=== PATIENT | female | born 1990 | race Caucasian/White ===

== ENCOUNTER 2023-05-31 05:13 | Emergency (ER) | payer BC, OTHER ==
--- NOTE | 2023-05-31 05:50 | EDPHYS ---
Physician Documentation [facility] Name: Pamela Olguin Age: 32 yrs Sex: Female : 1990 Arrival Date: 05/31/2023 Time: 05:13 Bed 14 Private MD: ED Physician Nic Harris HPI: 05/31 05:44 This 32 yrs old Female presents to ER via Ambulatory with complaints of Ear mary Pain. 05:44 The patient presents with drainage, a foreign body sensation, hearing loss, pain, that mary is acute. The complaints affect the right ear and left ear. Onset: The symptoms/episode began/occurred 2 day(s) ago. Modifying factors: The symptoms are alleviated by nothing, the symptoms are aggravated by nothing. Associated signs and symptoms: The patient has no apparent associated signs or symptoms. Severity of symptoms: At their worst the symptoms were mild moderate in the emergency department the symptoms are unchanged. Unable to obtain HPI due to baseline dementia. The patient has experienced similar episodes in the past, a few times. 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 - Social history:: Smoking status: Patient denies any tobacco usage or history of. ROS: 05:45 Constitutional: Negative for fever, chills, and weight loss, Eyes: Negative for injury, mary pain, redness, and discharge, Neck: Negative for injury, pain, and swelling, Cardiovascular: Negative for chest pain, palpitations, and edema, Respiratory: Negative for shortness of breath, cough, wheezing, and pleuritic chest pain, Abdomen/GI: Negative for abdominal pain, nausea, vomiting, diarrhea, and constipation, Back: Negative for injury and pain, : Negative for injury, bleeding, discharge, and swelling, MS/Extremity: Negative for injury and deformity, Skin: Negative for injury, rash, and discoloration, Neuro: Negative for headache, weakness, numbness, tingling, and seizure. 05:45 ENT: Positive for drainage from ear(s), ear pain, foreign body sensation, hearing loss. Exam: 05:45 Constitutional: This is a well developed, well nourished patient who is awake, alert, mary and in no acute distress. Head/Face: Normocephalic, atraumatic. Eyes: Pupils equal round and reactive to light, extra-ocular motions intact. Lids and lashes normal. Conjunctiva and sclera are non-icteric and not injected. Cornea within normal limits. Periorbital areas with no swelling, redness, or edema. Neck: Trachea midline, no thyromegaly or masses palpated, and no cervical lymphadenopathy. Supple, full range of motion without nuchal rigidity, or vertebral point tenderness. No Meningismus. Chest/axilla: Normal chest wall appearance and motion. Nontender with no deformity. No lesions are appreciated. Cardiovascular: Regular rate and rhythm with a normal S1 and S2. No gallops, murmurs, or rubs. Normal PMI, no JVD. No pulse deficits. Respiratory: Lungs have equal breath sounds bilaterally, clear to auscultation and percussion. No rales, rhonchi or wheezes noted. No increased work of breathing, no retractions or nasal flaring. Abdomen/GI: Soft, non-tender, with normal bowel sounds. No distension or tympany. No guarding or rebound. No evidence of tenderness throughout. Back: No spinal tenderness. No costovertebral tenderness. Full range of motion. Skin: Warm, dry with normal turgor. Normal color with no rashes, no lesions, and no evidence of cellulitis. MS/ Extremity: Pulses equal, no cyanosis. Neurovascular intact. Full, normal range of motion. Neuro: Awake and alert, GCS 15, oriented to person, place, time, and situation. Cranial nerves II-XII grossly intact. Motor strength 5/5 in all extremities. Sensory grossly intact. Cerebellar exam normal. Normal gait. Psych: Awake, alert, with orientation to person, place and time. Behavior, mood, and affect are within normal limits. 05:45 ENT: External ear(s): cellulitis, erythema, that is minimal, of the left ear canal. Vital Signs: 05:30 BP 118 / 86; Pulse 79; Resp 16; Temp 99.1(O); Pulse Ox 98% on R/A; Weight 99.79 kg (R); ll3 Height 5 ft. 0 in. (R); Pain 8/10; 05:30 Body Mass Index 42.97 (99.79 kg, 152.4 cm) ll3 05:30 Pain Scale: Adult ll3 Basia Coma Score: 05:46 Eye Response: spontaneous(4). Motor Response: obeys commands(6). Verbal Response: mary oriented(5). Total: 15. MDM: 05:31 Patient medically screened. [facility] 05:46 Data reviewed: vital signs, nurses notes. Consideration of Admission/Observation mary Escalation of care including admission/observation considered. I considered the following discharge prescriptions or medication management in the emergency department Medications were administered in the Emergency Department. See MAR. Test considered but Not performed: Labs: no labs. Administered Medications: 06:28 Drug: Rocephin (cefTRIAXone) IM 1 grams Route: IM; Site: left gluteus; ll3 06:57 Follow up: Response: No adverse reaction ll3 06:28 Drug: LevOfloxacin PO 750 mg Route: PO; ll3 06:57 Follow up: Response: No adverse reaction ll3 06:28 Drug: Ibuprofen PO 800 mg Route: PO; ll3 06:56 Follow up: Response: No adverse reaction ll3 Disposition Summary: 05/31/23 05:49 Discharge Ordered Location: Home mary Problem: new mary Symptoms: have improved mary Condition: Stable mary Diagnosis - Acute serous otitis media, bilateral mary - Acute reactive otitis externa, left ear mary Followup: mary - With: Private Physician - When: 2 - 3 days - Reason: Recheck today's complaints, Continuance of care, Re-evaluation by your physician Followup: mary - With: Carmen Membreno MD - When: 2 - 3 days - Reason: Recheck today's complaints, Continuance of care, Re-evaluation by your physician Discharge Instructions: - Discharge Summary Sheet mary - Ear Drops, Adult mary - Otitis Media, Adult mary - Otitis Externa mary - Otitis Externa, [id number] mary - Otitis Media, Adult, [id number] mary - Ear Drops, Adult, [id number] mary - Otitis Media With Effusion, Adult mary Forms: - Medication Reconciliation Form mary - Thank You Letter mary - Antibiotic Education mary - Prescription Opioid Use mary - Patient Portal Instructions mary Prescriptions: - acetaminophen-codeine 300-30 mg Oral tablet - take 2 tablet by ORAL route every 6 hours; 20 tablet; Refills: 0, Product mary Selection Permitted - Sia-D 12 Hour 60-120 mg Oral Tablet Sustained Release 12 hr - take 1 tablet by ORAL route every 12 hours As needed; 30 tablet; Refills: 0, mary Product Selection Permitted - Medrol (Chiki) 4 mg Oral Tablets, Dose Pack - take 1 tablet by ORAL route as directed - follow package instructions; 1 mary packet; Refills: 0, Product Selection Permitted - Ciprodex 0.3-0.1 % Otic drops,suspension - instill 4 drops by OTIC route every 12 hours for 7 days , for ears ONLY; 10 mary milliliter; Refills: 0, Product Selection Permitted - levofloxacin 750 mg Oral Tablet - take 1 tablet by ORAL route once daily; 9 tablet; Refills: 0, Product Selection mary Permitted Signatures: Nic Harris MD MD cha Loubet, Lynsea, RN RN ll3
--- NOTE | 2023-05-31 05:50 | ER ---
Nurse's Notes [facility] Name: Pamela Olguin Age: 32 yrs Sex: Female : 1990 Arrival Date: 05/31/2023 Time: 05:13 Bed 14 Private MD: Diagnosis: Acute serous otitis media, bilateral;Acute reactive otitis externa, left ear Presentation: 05/31 05:30 Chief complaint: Patient states: c/o bilateral ear drainage X 2 days, c/o pain to left ll3 ear 05/31 "states I scratched it in the inside really hard", c/o decreased hearing to right ear. Coronavirus screen: Vaccine status: Patient reports receiving the 2nd dose of the covid vaccine. At this time, the client does not indicate any symptoms associated with coronavirus-19. Ebola Screen: No symptoms or risks identified at this time. Initial Sepsis Screen: Does the patient meet any 2 criteria? No. Patient's initial sepsis screen is negative. Does the patient have a suspected source of infection? No. Patient's initial sepsis screen is negative. Risk Assessment: Do you want to hurt yourself or someone else? Patient reports no desire to harm self or others. Onset of symptoms was May 29, 2023. 05:30 Method Of Arrival: Ambulatory ll3 05:30 Acuity: LAURIE 4 ll3 Triage Assessment: 05:33 General: Appears uncomfortable, Behavior is calm, cooperative. Pain: Complains of pain ll3 in left ear Pain does not radiate. Pain currently is 8 out of 10 on a pain scale. Pain began 1 day ago. Is continuous. EENT: Reports decreased hearing in right ear pain in left ear. Derm: Skin is pink, warm \\T\\ dry. 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 - Social history:: Smoking status: Patient denies any tobacco usage or history of. Screenin:29 [facility] ED Fall Risk Assessment (Adult) History of falling in the last 3 months, ll3 including since admission No falls in past 3 months (0 pts) Confusion or Disorientation No (0 pts) Intoxicated or Sedated No (0 pts) Impaired Gait No (0 pts) Mobility Assist Device Used No (0 pt) Altered Elimination No (0 pt) Score/Fall Risk Level 0 - 2 = Low Risk Oriented to surroundings, Maintained a safe environment, Educated pt \\T\\ family on fall prevention, incl call for assistance when getting out of bed. Abuse screen: Denies threats or abuse. Denies injuries from another. Nutritional screening: No deficits noted. Tuberculosis screening: No symptoms or risk factors identified. Assessment: 05:33 General: See triage assessment. ll3 Vital Signs: 05:30 BP 118 / 86; Pulse 79; Resp 16; Temp 99.1(O); Pulse Ox 98% on R/A; Weight 99.79 kg (R); ll3 Height 5 ft. 0 in. (R); Pain 8/10; 05:30 Body Mass Index 42.97 (99.79 kg, 152.4 cm) ll3 05:30 Pain Scale: Adult ll3 Basia Coma Score: 05:46 Eye Response: spontaneous(4). Motor Response: obeys commands(6). Verbal Response: mary oriented(5). Total: 15. ED Course: 05:16 Patient arrived in ED. ag3 05:31 Nic Harris MD is Attending Physician. mary 05:33 Triage completed. ll3 05:35 Arm band placed on Patient placed in an exam room, on a stretcher, on pulse oximetry. ll3 05:48 Carmen Membreno MD is Referral Physician. mary 06:29 Patient has correct armband on for positive identification. Bed in low position. Call ll3 light in reach. Side rails up X 1. 06:29 No provider procedures requiring assistance completed. Patient did not have IV access ll3 during this emergency room visit. Administered Medications: 06:28 Drug: Rocephin (cefTRIAXone) IM 1 grams Route: IM; Site: left gluteus; ll3 06:57 Follow up: Response: No adverse reaction ll3 06:28 Drug: LevOfloxacin PO 750 mg Route: PO; ll3 06:57 Follow up: Response: No adverse reaction ll3 06:28 Drug: Ibuprofen PO 800 mg Route: PO; ll3 06:56 Follow up: Response: No adverse reaction ll3 Medication: 06:29 VIS not applicable for this client. ll3 Outcome: 05:49 Discharge ordered by . mary 06:56 Discharged to home ambulatory. ll3 06:56 Discharge instructions given to patient, Instructed on discharge instructions, follow up and referral plans. medication usage, Demonstrated understanding of instructions, follow-up care, medications, Prescriptions given X 5 06:56 Condition: stable ll3 06:57 Patient left the ED. ll3 Signatures: Nic Harris MD MD cha Gomez, Alice ag3 Loubet, Lynsea, RN RN ll3
[2023-05-31] MEDS ORDERED: LIDOCAINE 1% MPF 2 ML AMPULE ONE (06:27)
[2023-05-31] MEDS ORDERED: levoFLOXacin 750 MG TAB ONE (06:27)
[2023-05-31] MEDS ORDERED: CEFTRIAXONE 1000 MG/VIAL ONE (06:27)
[2023-05-31] MEDS ORDERED: IBUPROFEN 400 MG TAB ONE (06:27)
--- OUTSIDE RECORDS SUMMARY | 2023-05-31 06:50 | XMS REPORT | Continuity of Care Document ---
:1990 Author Organization [facility] t Address [address] [place] [address] [place] [id number] Care Team Providers Name Role Phone Pcp, Patient Does Not Have A Primary Care Physician [id number] Abel Mcgovern Attending Clinician Unavailable Onur Cantu Attending Clinician Unavailable Mario Ferrer Attending Clinician Unavailable GROVER PRESTON Attending Clinician Unavailable Grover Preston DO Attending Clinician REKHA COSTA Attending Clinician Unavailable Rekha Costa DO Attending Clinician Doctor Unassigned, [place] Attending Clinician Unavailable TOBY OSORIO Attending Clinician Unavailable Troy SHERMAN, Miim Sparks Attending Clinician Unavailable Yoanna HOLLY, Moon Isbell Attending Clinician Eduard HOLLY, Liam S Attending Clinician LIAM CAHPA Attending Clinician Unavailable NILSON REED Attending Clinician Unavailable Reji SHERMAN, Archana Attending Clinician Unavailable P[facility], [facility] Attending Clinician Unavailable Maia Toledo Attending Clinician MAIA HAHN Attending Clinician Unavailable Abel Mcgovern Admitting Clinician Unavailable KNOW, DOES_NOT Admitting Clinician Unavailable RON HOGUE Admitting Clinician Unavailable Mario Ferrer Admitting Clinician Unavailable Payers Payer Name Policy Type Policy Number Effective Date Expiration Date Berkley lara [facility] [id number] 2020 MEDICAID 00:00[facility]00 [facility] [id number] 2023 00:00:00 BCBS [facility] [id number] 2021 OF [facility] 00:00:00 Problems Condition Condition Condition Status Onset Resolution Last Treating Co mments Source Name Details Category Date Date Treatment Clinician Date Obesity Obesity Disease Active Univers (BMI (BMI 9-26 ity of 30-39.9) 30-39.9) 00:00: [address] Ectopic Ectopic Disease Active Univers 9-25 ity of without without 00:00: [place] intrauteri intrauteri 00 Me dical ne ne Branch , , unspecifie unspecifie d location d location Inappropri Inappropri Disease Active U nivers ate change ate change 06-12 it y of in in 00:00: [place] quantitati quantitati 00 Me dical ve hCG in ve hCG in Bran ch early early Acanthosis Acanthosis Disease Active U nivers nigricans nigricans 8-08 ity of 00:00: [address] Personal Personal Disease Active Unive rs history of history of 8-08 it y of gastric gastric 00:00: [place] banding banding [address] [place] [address] BMI BMI Disease Active Univers 37.0-37.9, 37.0-37.9, 8-08 it y of adult adult 00:00: [address] Allergies, Adverse Reactions, Alerts Allergy Allergy Status Severity Reaction(s) Onset Inactive Treating Comm ents Source Name Type Date Date Clinician clavulan DA Active [place] RASH 2021-0 [facility] ic acid 6-24 [facility] [place] amoxicil DA Active MO RASH 2021-0 [facility] renea 6-24 [facility] 00:[facility]: [facility] [place] clavulan DA Active MO RASH 0 [facility] ic acid 5-12 [facility] 00:00: [facility] [place] amoxicil DA Active MO RASH 2021-0 [facility] renea 5-12 [facility] 00:00: [facility] [place] amoxicil DA Active MO RASH 2020-0 [facility] renea 6-11 Clear 00:00: Haley 00 [facility] clavulan DA Active MO 2020-0 [facility] ic acid 6-11 Clear 00:00: Haley 00 [facility] amoxicil DA Active MO 2020-0 [facility] renea 6-11 Clear 00:00: Haley 00 [facility] clavulan DA Active MO RASH 2020-0 [facility] ic acid 6-11 Clear 00:00: Haley 00 [facility] clavulan DA Active MO RASH 2020-1 [facility] ic acid 1-23 Woman[facility] 00:00: [facility] [place] amoxicil DA Active MO RASH 2020-1 [facility] renea 1-23 Woman[facility] 00:00: [facility] [place] clavulan DA Active MO 2020-1 [facility] ic acid 1-23 Woman[facility] 00:00: [facility] [place] amoxicil DA Active MO 2020-1 [facility] renea 1-23 [facility] 00:00: [facility] [place] clavulan DA Active MO 2019-1 [facility] ic acid 2-28 [place] 00:00: Orthope 00 dic Hospita l amoxicil DA Active MO 2019-1 [facility] renea 2-28 [place] 00:00: Orthope 00 dic Hospita l amoxicil DA Active MO RASH 2019-1 [facility] renea 2-28 [place] 00:00: Orthope 00 dic Hospita l clavulan DA Active MO RASH 2019-1 [facility] ic acid 2-28 [place] 00:00: Orthope 00 dic Hospita l Amoxicil Propensi Active Hives 2018-0 Univer s renea-Pot ty to 808 ity of Clavulan adverse 00:00: [place] ate reaction 00 Medical s Branch AMOXICIL DRUG Active Hives 2017- Univers RENEA-POT 8-08 ity of CLAVULAN 00:00: [place] ATE 00 Medical Branch NO KNOWN Drug Active Univers ALLERGIE Class ity of S [facility] Social History Social Habit Start Date Stop Date Quantity Comments Source History SDOH University o f Alcohol Frequency [place] [facility] History SDOH University o f Alcohol Std Drinks [place] [facility] [place] History SDCO University o f Alcohol Binge [place] [facility] Gender identity Universit y of [facility] Sexual orientation Univer sity of [facility] Exposure to 2023-03-09 2023-03-19 Not sure [facility] SARS-CoV-2 (event) 00:00:00 07:24:00 [facility] Alcohol intake 2023-03-19 2023-03-19 Current drinker Unive rsity of 00:00:00 00:00:00 of alcohol [place] Medical (finding) Branch History of Social 2019-05-01 2019-05-01 Univers ity of function 00:00:00 00:00:00 [facility] Tobacco use and 2018-05-29 2018-05-29 Smokeless Universit y of exposure 00:00:00 00:00:00 tobacco non-user [facility] [place] [facility] dical [place] Alcohol Comment 2018-05-29 2018-05-29 weekends / Universit y of 00:00:00 00:00:00 [facility] Sex Assigned At [birth year] Universit y of 00:00:00 00:00:00 [facility] Smoking Status Start Date Stop Date Source Never smoked tobacco [facility] Medications Ordered Filled Start Stop Current Ordering Indication Dosage Frequency Signature Comments Components Source Medication Medication Date Date Medication? Clinician (SIG) Name Name polymyxin B Yes [id number] 1[drp] Place 1 Univers sulf-trimet 7-20 Drop in ity o f hoprim 00:00: left eye [place] 10,000 00 every 4 Medical unit- 1 (four) Branch mg/mL hours. ophthalmic drops ketorolac 2022- No 30mg 30 mg, Unive rs (TORADOL) 03-19 Slow IV ity of injection 13:30: 12:55 Push, [place] 30 mg 00 :00 ONCE, 1 Medical dose, On Branch 03/19/23 at 0830, Routine NaCl 0.9% 2022- No 1000mL at 999 Uni vers (NS) bolus 03-19 mL/hr, ity of infusion 13:30: 13:52 1,000 mL, Jack as 1,000 mL 00 :00 IV Medical Infusion, Branch ONCE, 1 dose, On [facility] 03/19/23 at 0830, TANNER diphenhydrA 2022- No 25mg 25 mg, Uni vers MINE 03-19 Slow IV ity of (BENADRYL) 12:45: 12:55 Push, [place] injection 00 :00 ONCE, 1 Medical 25 mg dose, On Branch [facility] 03/19/23 at 0745, STAT metoclopram No 10mg 10 mg, Uni vers faheem HCl 03-19 Slow IV ity of (REGLAN) 12:45: 12:55 Push, [place] injection 00 :00 ONCE, 1 Medical 10 mg dose, On Branch [facility] 03/19/23 at 0745, TANNER famotidine 2021- No 20mg 20 mg, Univ ers (PEPCID 06-18 Slow IV ity of (PF)) 20:30: 19:33 Push, [place] injection 00 :00 ONCE, 1 Medical 20 mg dose, On Branch [place] 06/18/22 at 1530, Routine NaCl 0.9% 2021- No 1000mL at 999 Uni vers (NS) bolus 06-18 mL/hr, ity of infusion 20:15: 20:13 1,000 mL, Jack as 1,000 mL 00 :00 IV Medical Infusion, Branch ONCE, 1 dose, On [place] 06/18/22 at 1515, TANNER maalox:diph 2021- No 15mL 15 mL, Uni vers enhydrAMINE 06-18 Oral, ity of :lidocaine 20:00: 20:08 ONCE, 1 Jack as 2 % viscous 00 :00 dose, On Medi ayana 1:1:1 [place] ([facility] 06/18/22 at [facility]) 1500, oral Routine suspension 15 mL ketorolac 2021- No 30mg 30 mg, Unive rs (TORADOL) 06-18 Slow IV ity of injection 19:30: 19:32 Push, [place] 30 mg 00 :00 ONCE, 1 Medical dose, On Branch 06/18/22 at 1430, TANNER ondansetron 2021- No 4mg 4 mg, Slow Univers (ZOFRAN 06-18 IV Push, ity of (PF)) 19:30: 19:33 ONCE, 1 [place] injection 4 00 :00 dose, On Medi ayana mg [facility] 06/18/22 at 1430, TANNER ondansetron Yes [id number] 4mg Take 1 Univers 4 mg - tablet by ity of disintegrat 00:00: mouth [place] ing tablet 00 every 8 Medica l (eight) Branch hours as needed for Nausea and Vomiting (N/V). ondansetron Yes [id number] 4mg Take 1 Univers 4 mg - tablet by ity of disintegrat 00:00: mouth [place] ing tablet 00 every 8 Medica l (eight) Branch hours as needed for Nausea and Vomiting (N/V). ondansetron Yes [id number] 4mg Take 1 Univers 4 mg 8-28 tablet by ity of disintegrat 00:00: mouth [place] ing tablet 00 every 8 Medica l (eight) Branch hours as needed for Nausea and Vomiting (N/V). meloxicam 2019-10 Yes [id number] 7.5mg Take 1 Univers 7.5 mg 1-17 [id number] tablet by ity of tablet 00:00: mouth [place] 00 daily. [facility] meloxicam 2019-10 Yes [id number] 7.5mg Take 1 Univers 7.5 mg 1-17 [id number] tablet by ity of tablet 00:00: mouth [place] 00 daily. [facility] meloxicam 2019-10 Yes [id number] 7.5mg Take 1 Univers 7.5 mg 1-17 [id number] tablet by ity of tablet 00:00: mouth [place] 00 daily. [facility] meloxicam 2019-10 Yes [id number] 7.5mg Take 1 Univers 7.5 mg 1-17 [id number] tablet by ity of tablet 00:00: mouth [place] 00 daily. [facility] meloxicam 2019-10 Yes [id number] 7.5mg Take 1 Univers 7.5 mg 1-17 [id number] tablet by ity of tablet 00:00: mouth [place] 00 daily. [facility] meloxicam 2019- Yes [id number] 7.5mg Take 1 Univers 7.5 mg 1-17 [id number] tablet by ity of tablet 00:00: mouth [place] 00 daily. [facility] meloxicam 2019-10 Yes [id number] 7.5mg Take 1 Univers 7.5 mg 1-17 [id number] tablet by ity of tablet 00:00: mouth [place] 00 daily. [facility] meloxicam 2019-10 Yes [id number] 7.5mg Take 1 Univers 7.5 mg 1-17 [id number] tablet by ity of tablet 00:00: mouth [place] 00 daily. [facility] meloxicam 2019-10 Yes [id number] 7.5mg Take 1 Univers 7.5 mg 1-17 [id number] tablet by ity of tablet 00:00: mouth [place] 00 daily. [facility] ondansetron 2020- No [id number] 4mg Take 1 Univers (ZOFRAN 8-03 08-09 tablet by ity of ODT) 4 mg 00:00: 04:59 mouth [place] disintegrat 00 :00 every 8 Medic al ing tablet (eight) Branch hours as needed for Nausea and Vomiting (N/V) for up to 5 days. ondansetron 2020- No [id number] 4mg Take 1 Univers (ZOFRAN 8-03 08-09 tablet by ity of ODT) 4 mg 00:00: 04:59 mouth [place] disintegrat 00 :00 every 8 Medic al ing tablet (eight) Branch hours as needed for Nausea and Vomiting (N/V) for up to 5 days. HYDROcodone Yes 1{tbl} Take 1 Un orquidea -acetaminop 9-26 tablet by ity of hen 5-325 00:00: mouth [place] mg tablet 00 every 6 Medical (six) Branch hours as needed for Pain (scale 4-6) or Pain (scale 7-10). HYDROcodone Yes 1{tbl} Take 1 Un orquidea -acetaminop 9-26 tablet by ity of hen 5-325 00:00: mouth [place] mg tablet 00 every 6 Medical (six) Branch hours as needed for Pain (scale 4-6) or Pain (scale 7-10). HYDROcodone 2018-0 Yes 1{tbl} Take 1 Un orquidea -acetaminop 9-26 tablet by ity of hen 5-325 00:00: mouth [place] mg tablet 00 every 6 Medical (six) Branch hours as needed for Pain (scale 4-6) or Pain (scale 7-10). HYDROcodone 2018-0 Yes 1{tbl} Take 1 Un orquidea -acetaminop 9-26 tablet by ity of hen 5-325 00:00: mouth [place] mg tablet 00 every 6 Medical (six) Branch hours as needed for Pain (scale 4-6) or Pain (scale 7-10). HYDROcodone 2018-0 Yes 1{tbl} Take 1 Un orquidea -acetaminop 9-26 tablet by ity of hen 5-325 00:00: mouth [place] mg tablet 00 every 6 Medical (six) Branch hours as needed for Pain (scale 4-6) or Pain (scale 7-10). HYDROcodone 2018-0 Yes 1{tbl} Take 1 Un orquidea -acetaminop 9-26 tablet by ity of hen 5-325 00:00: mouth [place] mg tablet 00 every 6 Medical (six) Branch hours as needed for Pain (scale 4-6) or Pain (scale 7-10). HYDROcodone 2018-0 Yes 1{tbl} Take 1 Un orquidea -acetaminop 9-26 tablet by ity of hen 5-325 00:00: mouth [place] mg tablet 00 every 6 Medical (six) Branch hours as needed for Pain (scale 4-6) or Pain (scale 7-10). HYDROcodone 2018-0 Yes 1{tbl} Take 1 Un orquidea -acetaminop 9-26 tablet by ity of hen 5-325 00:00: mouth [place] mg tablet 00 every 6 Medical (six) Branch hours as needed for Pain (scale 4-6) or Pain (scale 7-10). HYDROcodone 2018-0 Yes 1{tbl} Take 1 Un orquidea -acetaminop 9-26 tablet by ity of hen 5-325 00:00: mouth [place] mg tablet 00 every 6 Medical (six) Branch hours as needed for Pain (scale 4-6) or Pain (scale 7-10). HYDROcodone 2018-0 Yes 1{tbl} Take 1 Un orquidea -acetaminop 9-26 tablet by ity of hen 5-325 00:00: mouth [place] mg tablet 00 every 6 Medical (six) Branch hours as needed for Pain (scale 4-6) or Pain (scale 7-10). HYDROcodone 2018-0 Yes 1{tbl} Take 1 Un orquidea -acetaminop 9-26 tablet by ity of hen 5-325 00:00: mouth [place] mg tablet 00 every 6 Medical (six) Branch hours as needed for Pain (scale 4-6) or Pain (scale 7-10). HYDROcodone 2018-0 Yes 1{tbl} Take 1 Un orquidea -acetaminop 9-26 tablet by ity of hen 5-325 00:00: mouth [place] mg tablet 00 every 6 Medical (six) Branch hours as needed for Pain (scale 4-6) or Pain (scale 7-10). Immunizations Ordered Filled Immunization Date Status Comments [facility] Immunization Name Name SARS-COV-2 COVID-19 2021-01-24 Completed Unive rsity of MODERNA VACCINE 00:00:00 [place] Med ical Branch SARS-COV-2 COVID-19 2021-01-24 Completed Unive rsity of MODERNA VACCINE 00:00:00 [place] Med ical Branch SARS-COV-2 COVID-19 2021-01-24 Completed Unive rsity of MODERNA 12+ YRS 00:00:00 [facility] ical VACCINE Branch SARS-COV-2 COVID-19 2021-01-24 Completed Unive rsity of MODERNA 12+ YRS 00:00:00 [place] Med ical VACCINE Branch SARS-COV-2 COVID-19 2020-12-27 Completed Unive rsity of MODERNA VACCINE 00:00:00 [facility] ical Branch SARS-COV-2 COVID-19 2020-12-27 Completed Unive rsity of MODERNA VACCINE 00:00:00 [place] Med ical Branch SARS-COV-2 COVID-19 2020-12-27 Completed Unive rsity of MODERNA 12+ YRS 00:00:00 [facility] ical VACCINE Branch SARS-COV-2 COVID-19 2020-12-27 Completed Unive rsity of MODERNA 12+ YRS 00:00:00 [facility] ical VACCINE Branch Vital Signs Vital Name Observation Time Observation Value Comments Source Systolic blood 2023-05-10 20:17:17 132 mm[Hg] Univer sity of pressure [place] [facility] Diastolic blood 2023-05-10 20:17:17 81 mm[Hg] Unive rsity of pressure [place] [facility] Heart rate 2023-05-10 20:17:17 90 /min Universi ty of [place] [facility] Respiratory rate 2023-05-10 20:17:17 16 /min Univ ersity of [place] [facility] Oxygen saturation in 2023-05-10 20:17:17 100 /min University of Arterial blood by [facility] Pulse oximetry Branch Body temperature 2023-05-10 19:34:05 36.89 Rosa M Univ ersity of [place] [facility] Body height 2023-05-10 19:20:00 152.4 cm Universi ty of [place] [facility] Body weight 2023-05-10 19:20:00 102.059 kg Universi ty of [place] [facility] BMI 2023-05-10 19:20:00 43.94 kg/m2 Universi ty of [place] [facility] Systolic blood 2023-03-19 13:53:00 125 mm[Hg] Univer sity of pressure [place] [facility] Diastolic blood 2023-03-19 13:53:00 83 mm[Hg] Unive rsity of pressure [place] [facility] Heart rate 2023-03-19 13:53:00 55 /min Universi ty of [place] [facility] Respiratory rate 2023-03-19 13:53:00 14 /min Univ ersity of [place] [facility] Oxygen saturation in 2023-03-19 13:53:00 98 /min University of Arterial blood by [facility] Pulse oximetry Branch Body temperature 2023-03-19 12:26:00 37.22 Rosa M Univ ersity of [place] [facility] Body height 2023-03-19 12:26:00 152.4 cm Universi ty of [place] [facility] Body weight 2023-03-19 12:26:00 102.059 kg Universi ty of [place] [facility] BMI 2023-03-19 12:26:00 43.94 kg/m2 Universi ty of [place] [facility] Systolic blood 2022-06-18 20:00:00 113 mm[Hg] Univer sity of pressure [place] [facility] Diastolic blood 2022-06-18 20:00:00 76 mm[Hg] Unive rsity of pressure [place] [facility] Heart rate 2022-06-18 20:00:00 64 /min Universi ty of [place] [facility] Respiratory rate 2022-06-18 20:00:00 15 /min Univ ersity of [place] [facility] Oxygen saturation in 2022-06-18 20:00:00 99 /min University of Arterial blood by [place] [facility] Pulse oximetry Branch Body temperature 2022-06-18 19:13:00 36.89 Rosa M Univ ersity of [place] [facility] Body height 2022-06-18 19:13:00 152.4 cm Universi ty of [place] [facility] Body weight 2022-06-18 19:13:00 95.709 kg Universi ty of [place] [facility] BMI 2022-06-18 19:13:00 41.21 kg/m2 Universi ty of [place] [facility] Systolic blood 2020-11-23 04:00:00 125 mm[Hg] Univer sity of pressure [place] [facility] Diastolic blood 2020-11-23 04:00:00 75 mm[Hg] Unive rsity of pressure [place] [facility] Heart rate 2020-11-23 04:00:00 79 /min Universi ty of [place] [facility] Body temperature 2020-11-23 04:00:00 37 Rosa M Univ ersity of [place] [facility] Respiratory rate 2020-11-23 04:00:00 16 /min Univ ersity of [place] [facility] Oxygen saturation in 2020-11-23 04:00:00 98 /min University of Arterial blood by [place] [facility] Pulse oximetry Branch Body weight 2020-11-23 02:18:00 87.091 kg Universi ty of [place] [facility] BMI 2020-11-23 02:18:00 37.50 kg/m2 Universi ty of [place] [facility] Systolic blood 2020-11-23 04:00:00 125 mm[Hg] Univer sity of pressure [place] [facility] Diastolic blood 2020-11-23 04:00:00 75 mm[Hg] Unive rsity of pressure [place] [facility] Heart rate 2020-11-23 04:00:00 79 /min Universi ty of [place] [facility] Body temperature 2020-11-23 04:00:00 37 Rosa M Univ ersity of [place] [facility] Respiratory rate 2020-11-23 04:00:00 16 /min Univ ersity of [place] [facility] Oxygen saturation in 2020-11-23 04:00:00 98 /min University of Arterial blood by [facility] Pulse oximetry Branch Body weight 2020-11-23 02:18:00 87.091 kg Universi ty of [facility] BMI 2020-11-23 02:18:00 37.50 kg/m2 Universi ty of [facility] Systolic blood 2020-09-07 21:14:00 124 mm[Hg] Univer sity of pressure [facility] Diastolic blood 2020-09-07 21:14:00 84 mm[Hg] Unive rsity of pressure [facility] Heart rate 2020-09-07 21:14:00 77 /min Universi ty of [facility] Body height 2020-09-07 21:14:00 152.4 cm Universi ty of [facility] Body weight 2020-09-07 21:14:00 84.369 kg Universi ty of [facility] BMI 2020-09-07 21:14:00 36.33 kg/m2 Universi ty of [facility] Systolic blood 2020-09-07 21:14:00 124 mm[Hg] Univer sity of pressure [facility] Branch Diastolic blood 2020-09-07 21:14:00 84 mm[Hg] Unive rsity of pressure [facility] Heart rate 2020-09-07 21:14:00 77 /min Universi ty of [facility] Body height 2020-09-07 21:14:00 152.4 cm Universi ty of [facility] Body weight 2020-09-07 21:14:00 84.369 kg Universi ty of [facility] BMI 2020-09-07 21:14:00 36.33 kg/m2 Universi ty of [facility] Systolic blood 2020-05-24 20:55:00 133 mm[Hg] Univer sity of pressure [facility] Diastolic blood 2020-05-24 20:55:00 86 mm[Hg] Unive rsity of pressure [facility] Heart rate 2020-05-24 20:53:00 63 /min Universi ty of [facility] Body temperature 2020-05-24 20:53:00 37 Rosa M Univ ersity of [facility] Respiratory rate 2020-05-24 20:53:00 18 /min Univ ersity of [facility] Body height 2020-05-24 20:53:00 152.4 cm [facility] Body weight 2020-05-24 20:53:00 83.008 kg [facility] BMI 2020-05-24 20:53:00 35.74 kg/m2 [facility] Oxygen saturation in 2020-05-24 20:53:00 98 /min [facility] blood by [facility] Pulse oximetry Branch Procedures Procedure Date / Time Performing Clinician Source Performed CONSENT/REFUSAL FOR 2023-05-10 19:15:29 [facility] DIAGNOSIS AND TREATMENT Archer [facility] CONSENT/REFUSAL FOR 2023-03-19 12:24:31 [facility] DIAGNOSIS AND TREATMENT Archer [facility] POCT TEST 2022-06-18 19:35:00 Rekha Costa [facility] LIPASE 2022-06-18 19:25:00 Rekha Costa [facility] COMP. METABOLIC PANEL 2022-06-18 19:25:00 Rekha Costa [facility] ([id number] CBC WITH DIFF 2022-06-18 19:25:00 Rekha Costa [facility] URINALYSIS 2022-06-18 19:25:00 Rekha Costa [facility] CONSENT/REFUSAL FOR 2022-06-18 19:06:07 Doctor [facility] DIAGNOSIS AND TREATMENT Archer [facility] [id number] 2022-05-14 00:00:00 [facility] [id number] 2021-05-06 00:00:00 [facility] [id number] 2021-05-06 00:00:00 [facility] URINALYSIS 2020-11-23 03:41:00 Moon Lenz [place] o f [facility] RAPID STREP SCREEN FOR 2020-11-23 02:44:00 Moon [facility] A [facility] ADC,CLC OR LCC ONLY - 2020-11-23 02:44:00 Moon Lenz [facility] INFLUENZA A & B DIRECT Medical B ranch ANTIGEN NOTICE OF PRIVACY 2020-11-23 02:15:37 Doctor Unassigned, [facility] PRACTICES [facility] CONSENT/REFUSAL FOR 2020-11-23 02:15:15 Doctor Unassigned, [facility] DIAGNOSIS AND TREATMENT [facility] NO SHOW OR MISSED 2020-09-07 20:57:09 Doctor Unassigned, [facility] APPOINTMENT POLICY [facility] h ACKNOWLEDGEMENT [id number] 2019-11-06 00:00:00 JOSE R [facility] Encounters Start End Encounter Admission Attending Care Care Encounter Source Date/Time Date/Time Type Type Clinicians Facility Department ID 2022-06-23 Inpatient EL Chris, [facility] [id number] [facility] 12:30:00 Chundar [id number] [facility] [place] 2022-06-21 Inpatient EL Chris, [facility] [id number] [facility] 10:00:00 Chundar [id number] [facility] [place] 2022-05-12 Inpatient EM Chris, [facility] OBPP [id number] [facility] 09:58:00 Chundar [id number] [facility] [place] 2021-08-20 Emergency [facility] [id number] Univers 21:07:55 ity [facility] 2021-05-18 [facility] [id number] [facility] 10:30:00 Chundar [id number] [facility] [place] 2021-01-04 Inpatient Chris, [facility] [id number] [facility] 10:00:00 Chundar [id number] [facility] [place] 2020-09-28 Inpatient BERTA Cantu, [facility] [id number] [facility] 10:37:00 Onur [facility] [place] [facility] 2020-09-13 Inpatient BERTA Cantu [facility] [id number] [facility] 07:45:00 Onur 06 [place] [facility] 2019-11-05 Inpatient Mario Chappell [facility] LD [id number] [facility] 18:18:00 [id number] [facility] [place] 2019-10-31 Inpatient Mario Ferrer [facility] ZENAIDA [id number] [facility] 19:15:00 [facility] [place] 2023-05-10 2023-05-10 [facility] [id number] Univers 14:22:00 15:28:00 GROVER davis [facility] 2023-05-10 2023-05-10 [facility] [id number] Univers 14:22:00 15:28:00 Grover AMNZO [id number] i ty of [place] [id number] [facility] [id number] [address] 2023-03-19 2023-03-19 [facility] [id number] Univers 07:27:00 08:55:00 REKHA evetteana [facility] 2023-03-19 2023-03-19 [facility] [id number] Univers 07:27:00 08:55:00 Rekha MANZO 350.1.13.10 ity [facility] 4.2.7.2.686 [facility] [phone] [address] 2022-06-18 2022-06-18 Emergency [facility] [id number] Univers 14:16:00 15:19:00 REKHA evetteana [facility] 2022-06-18 2022-06-18 [facility] 1.2.840.114 [id number] Univers 14:16:00 15:19:00 Rekha MANZO 350.1.13.10 ity [facility] 4.2.7.2.686 [facility] [phone] [address] 2022-06-18 2022-06-18 Orders Doctor MARTIN 1.2.840.114 [id number] Univers 00:00:00 00:00:00 Only Unassigned, CHRIS 350.1.13.10 ity of [facility] 4.2.7.2.686 [facility] [phone] [place] [address] [address] 2022-05-12 2022-05-18 Inpatient EM Chris, [facility] OB [id number] [facility] 09:58:00 19:37:00 Chundar 73 [facility] 2022-04-14 2022-04-14 Emergency EM Chris, [facility] ZENAIDA [id number] [facility] 14:48:00 18:15:00 Chundar 25 [facility] 2022-04-14 2022-04-14 Emergency EM Chris, [facility] [id number] [facility] 14:48:00 18:15:00 Chundar [id number] [facility] 2022-04-05 2022-04-06 Emergency EL Chris, [facility] ZENAIDA [id number] [facility] 21:56:00 01:00:00 Chundar 53 [facility] 2022-04-05 2022-04-06 Emergency EL Chris, [facility] [id number] [facility] 21:56:00 01:00:00 Chundar [id number] [facility] 2022-03-02 2022-03-02 Emergency EM Chris, [facility] ZENAIDA [id number] [facility] 14:10:00 16:25:00 Chundar 63 [facility] 2022-03-02 2022-03-02 Emergency EM Chris, [facility] [id number] [facility] 14:10:00 16:25:00 Chundar [id number] [facility] 2021-05-06 2021-05-08 Inpatient EM Chris, [facility] OBPP [id number] [facility] 13:00:00 13:22:00 Chundar [id number] [facility] 2021-05-06 2021-05-06 Outpatient Chris, HCACL LABO [id number] [facility] 14:52:00 14:52:00 Chundar 71 [facility] 2021-04-20 2021-04-20 Emergency EM Chris, [facility] ZENAIDA [id number] [facility] 16:09:00 19:42:00 Chundar [id number] [facility] 2021-04-01 2021-04-01 Emergency EM Chris, [facility] ZENAIDA [id number] [facility] 13:02:00 13:39:00 Chundar [id number] [facility] 2021-01-24 2021-01-24 Outpatient [facility] [id number] Univers 09:30:00 09:30:00 ity [facility] 2020-12-27 2020-12-27 Outpatient R JO, [facility] [id number] Univers 09:40:00 09:40:00 TOBY ity [facility] 2020-11-23 2020-11-23 Letter MARIO Simmons 1.2.840.114 [id number] 00:00:00 00:00:00 (Out) Mimi PEREZ 350.1.13.10 [facility] 4.2.7.2.686 [id number] 019 2020-11-23 2020-11-23 MARIO Perez 1.2.840.114 [id number] Univers 00:00:00 00:00:00 (Out) Mimi PEREZ 350.1.13.10 it [facility] 4.2.7.2.686 Jack as [phone] [facility] [address] 2020-11-22 2020-11-22 Emergency Moon Lenz [facility] 1.2.840.114 [id number] 20:20:00 22:26:00 Akilah Manzo 350.1.13.10 [place] 4.2.7.2.686 [place] [id number] [facility] 2020-11-22 2020-11-22 Emergency Moon Lenz [facility] 1.2.840.114 [id number] Univers 20:20:00 22:26:00 Akilah Manzo 350.1.13.10 i ty [facility] 4.2.7.2.[place] [phone] [place] [address]64 [place] 2020-09-07 2020-09-07 [facility] 1.2.840.114 [id number] 15:52:38 23:59:00 Encounter [facility] 350.1.13.10 Surgical 4.2.7.2.686 Specialti [phone] [address] [place] 2020-09-07 2020-09-07 [facility] 1.2.840.114 [id number] Univers 15:52:38 23:59:00 Encounter [facility] 350.1.13.10 ity of Surgical 4.2.7.2.686 Jack as Specialti [id number] Md dical es 809 [facility] 2020-09-07 2020-09-07 [facility] [id number] Univers 15:15:00 15:15:00 LIAM ity [facility] 2020-09-07 2020-09-07 [facility] 1.2.840.114 [id number] Univers 14:57:36 15:12:36 Visit [facility] 350.1.13.10 it y of Surgical 4.2.7.2.686 Jack as Specialti [phone] Md dical es 198 [facility] 2020-09-07 2020-09-07 Office [facility] 1.2.840.114 [id number] 14:57:36 15:12:36 Visit [facility] 350.1.13.10 Surgical 4.2.7.2.686 Specialti [id number] es [address] [place] [address] 2020-09-07 2020-09-07 Orders Doctor MARIO 1.2.840.114 [id number] Univers 00:00:00 00:00:00 Only Unassigned, CHRIS 350.1.13.10 ity of [facility] 4.2.7.2.686 Jack as [id number] [facility] [address] [place] 2020-09-06 2020-09-06 Outpatient R BRIANNA [facility] [id number] Univers 14:30:00 14:30:00 NILSON ity [facility] 2020-05-25 2020-05-25 Telephone Archana Mendoza 1.2.840.114 [id number] Univers 00:00:00 00:00:00 CHRIS 350.1.13.10 it y of HOSPITAL 4.2.7.2.686 Jack as [phone] [facility] [address] [place] 2020-05-24 2020-05-24 Urgent Pob1, Acute Care Clinic [facility] 1. 2.840.114 [id number] Univers 15:45:59 16:12:06 Care [facility] 350.1.13.10 ity of [place] 4.2.7.2.686 Jack as [place] [phone] Md dical [place] [address] [address] 2020-05-24 2020-05-24 Outpatient Dulce HAHN [facility] [id number] Univers 15:40:00 16:12:06 MAIA davis [facility] 2019-11-06 2019-11-06 Outpatient Mario Ferrer [facility] [id number] [facility] 11:17:00 11:17:00 59 [facility] 2019-10-29 2019-10-29 Outpatient Mario Ferrer [facility] [id number] [facility] 08:30:00 08:30:00 [facility] 2019-10-20 2019-10-21 Emergency EM Mario Ferrer [facility] ZENAIDA [id number] [id number] [facility] 22:55:00 01:55:00 [id number] Woman s [facility] Results Test Description Test Time Test Comments Results Result Comments Source COMP. METABOLIC PANEL (53797) 2022-06-18 19:48:09 Test Item Value Reference Range Interpretation Comme nts NA (test code = 1978747902) 142 mmol/L 135-145 K (test code = 7457220329) 4.0 mmol/L 3.5-5 CL (test code = 4858056345) 110 mmol/L 98-108 H CO2 TOTAL (test code = 5984010487) 26 mmol/L 23-31 AGAP (test code = 6534805058) 2-16 BUN (test code = 3158139676) 10 mg/dL 7-23 GLUCOSE (test code = 8971676261) 85 mg/dL 70-110 CREATININE (test code = 0.61 mg/dL 0.5-1.04 3774369898) TOTAL BILI (test code = 0.2 mg/dL 0.1-1.1 0412077364) CALCIUM (test code = 5207973821) 8.9 mg/dL 8.6-10.6 T PROTEIN (test code = 4348105187) 6.5 g/dL 6.3-8.2 ALBUMIN (test code = 7790481615) 4.0 g/dL 3.5-5 ALK PHOS (test code = 5967468670) 88 U/L 34-122 ALTv (test code = 1742-6) 31 U/L 5-35 AST(SGOT) (test code = 1532679663) 34 U/L 13-40 eGFR (test code = 0507269598) mL/min/1.73m2 MICHAEL (test code = MICHAEL) Association of Glomerular Filtration Rate (GFR) and Staging of Kidney Disease* + +-------- + ------+| GFR (mL/min/1.73 m2) ?| With Kidney Damage ?| ?Without Kidney Damage+ +-- + +| ?>90 ?| ?Stage one ?| ? Normal ?+ +------- + -------+| ?60-89 ?| ?Stage two ?| ? Decreased GFR ? + +-------- + ------+| ?30-59 ?| ?Stage three ?| ? Stage three ? + +-------- + ------+| ?15-29 ?| ?Stage four ? | ? Stage four ?+ +------- + -------+| ?<15 (or dialysis) ? ?| ?Stage five ? | ? Stage five ?+ +------- + -------+ *Each stage assumes the associated GFR level has been in effect for at least three months. ?Stages 1 to 5, with or without kidney disease, indicate chronic kidney disease. Notes: Determination of stages one and two (with eGFR >59mL/min/1.73 m2) requires estimation of kidney damage for at least three months as defined by structural or functional abnormalities of the kidney, manifested by either:Pathological abnormalities or Markers of kidney damage (including abnormalities in the composition of the blood or urine or abnormalities in imaging tests). Lab Interpretation (test code = Abnormal 42354-3) [facility] 19:48:09 Test Item Value Reference Range Interpretation Comments LIPASE (test code = 1934419520) 138 U/L 0-220 Lab Interpretation (test code = Normal 38738-2) [facility] WITH [id number] 19:40:05 Test Item Value Reference Range Interpretation Comments WBC (test code = See_Comment [Automated 1690-2) message] The sy stem which generated this result transmitted reference range : 4.30 - 11.10 10*3/?L. The reference range was not used to interpret this result as normal/abnormal . RBC (test code = See_Comment [Automated 789-8) message] The sy stem which generated this result transmitted reference range : 3.93 - 5.25 10*6/?L. The reference range was not used to interpret this result as normal/abnormal . HGB (test code = 11.6 g/dL 11.6-15 718-7) HCT (test code = 37.2 % 35.7-45.2 4544-3) MCV (test code = 88.6 fL 80.6-95.5 787-2) MCH (test code = 27.6 pg 25.9-32.8 785-6) MCHC (test code = 31.2 g/dL 31.6-35.1 L 786-4) RDW-SD (test code = 45.1 fL 39-49.9 50000-6) RDW-CV (test code = 14.1 % 12-15.5 788-0) PLT (test code = See_Comment [Automated 777-3) message] The sy stem which generated this result transmitted reference range : 166 - 358 10*3/ ?L. The reference r alejandro was not used to interpret this result as normal/abnormal . MPV (test code = 10.2 fL 9.5-12.9 83592-3) NRBC/100 WBC (test See_Comment [Automat ed code = 7006954611) message] The system which generated this result transmitted reference range : 0.0 - 10.0 /100 WBCs. The refer ence range was not u sed to interpret th is result as normal/abnormal . NRBC x10^3 (test code See_Comment [Auto mated = 2668726512) message] The s ystem which generated this result transmitted reference range : 10*3/?L. The reference range was not used to interpret this result as normal/abnormal . GRAN MAT (NEUT) % 54.5 % (test code = 770-8) IMM GRAN % (test code 0.20 % = 4824537964) LYMPH % (test code = 26.9 % 736-9) MONO % (test code = 11.2 % 5905-5) EOS % (test code = 6.1 % 713-8) BASO % (test code = 1.1 % 706-2) GRAN MAT x10^3(ANC) 3.61 10*3/uL 1.88-7.09 (test code = 4675859545) IMM GRAN x10^3 (test 0-0.06 code = 1046553498) LYMPH x10^3 (test code 1.78 10*3/uL 1.32-3.29 = 731-0) MONO x10^3 (test code 0.74 10*3/uL 0.33-0.92 = 742-7) EOS x10^3 (test code = 0.40 10*3/uL 0.03-0.39 H 711-2) BASO x10^3 (test code 0.07 10*3/uL 0.01-0.07 = 704-7) Lab Interpretation Abnormal (test code = 09494-5) [facility] [id number] 19:35:00 Test Item Value Reference Range Interpretation Comments POCT PREG (test code = 1605) Negative On board controls acceptable with Present C Line (test code = 3574) POCT PREG LOT # (test code = 3575) [id number] POCT PREG TEST DATE (test 08-21-2023 code = 3576) Lab Interpretation (test code = Normal 35930-0) [facility] W/AUTO [id number] 10:11:00 Test Item Value Reference Range Interpretation Comments WHITE BLOOD CELL (test code = WBC) 18.6 K/mm3 6.5-12.3 H RED BLOOD CELL (test code = RBC) 3.18 M/mm3 3.51-4.69 L HEMOGLOBIN (test code = HGB) 9.2 g/dL 10.1-13.8 L HEMATOCRIT (test code = HCT) 28.3 % 32.5-41.8 L MEAN CELL VOLUME (test code = MCV) 89.0 fL 84.6-96.6 N MEAN CELL HGB (test code = MCH) 28.9 pg 27.3-33.9 N MEAN CELL HGB CONCETRATION (test 32.5 gm/dL 32.0-34.2 N code = MCHC) RED CELL DISTRIBUTION WIDTH (test 12.8 % 12.2-16.3 N code = RDW) PLATELET COUNT (test code = PLT) 271 K/mm3 134-363 N MEAN PLATELET VOLUME (test code = 10.8 fL 9.2-12.7 N MPV) NEUTROPHIL % (test code = NT%) 78.1 % 57.9-77.3 H LYMPHOCYTE % (test code = LY%) 10.8 % 14.5-29.7 L MONOCYTE % (test code = MO%) 9.1 % 3.6-10.2 N EOSINOPHIL % (test code = EO%) 0.0 % 0.0-3.0 N BASOPHIL % (test code = BA%) 0.3 % 0.1-0.9 N NEUTROPHIL # (test code = NT#) 14.6 K/mm3 LYMPHOCYTE # (test code = LY#) 2.0 K/mm3 MONOCYTE # (test code = MO#) 1.7 K/mm3 EOSINOPHIL # (test code = EO#) 0 K/mm3 BASOPHIL # (test code = BA#) 0.1 K/mm3 RBC MORPHOLOGY REQUIRED (test code NORMAL NORMAL = RBCM) PLATELET MORPHOLOGY REQUIRED (test NORMAL NORMAL code = PLTMR) AG HEPATITIS B [id number] 21:13:00 Test Item Value Reference Range Interpretation Comments AG HEPATITIS B SURFACE (test code NONREACTIVE NONREACTIVE = HBSAG) AB HEPATITIS C [id number] 21:13:00 Test Item Value Reference Range Interpretation Comments AB HEPATITIS C (test code = NONREACTIVE NONREACTIVE A HCVAB) SIGNAL TO CUTOFF (test code = 0.04 <0.80 N CUTOFF) AB [id number] 21:13:00 Test Item Value Reference Range Interpretation Comments AB TREPONEMA (test code = TREPAB) NONREACTIVE NONREACTIVE COMPREHENSIVE METABOLIC [id number] 20:12:00 Test Item Value Reference Range Interpretation Comments SODIUM (test code = NA) 138 mEq/L 135-145 N POTASSIUM (test code = K) 3.8 mEq/L 3.5-5.0 N CHLORIDE (test code = CL) 105 mEq/L 100-115 N CARBON DIOXIDE (test code = CO2) 21 mEq/L 22-31 L ANION GAP (test code = GAP) 15.70 10-20 N GLUCOSE (test code = GLU) 121 mg/dL 65-110 H BLOOD UREA NITROGEN (test code = 7 mg/dL 7-18 N BUN) GLOMERULAR FILTRATION RATE (test 118 ml/min >60 N code = GFR) CREATININE (test code = CREAT) 0.6 mg/dL 0.5-1.0 N TOTAL PROTEIN (test code = PROT) 5.9 gm/dL 6.3-8.2 L ALBUMIN (test code = ALB) 2.6 gm/dL 3.4-4.8 L CALCIUM (test code = CA) 7.7 mg/dL 8.4-10.2 L BILIRUBIN TOTAL (test code = 0.2 mg/dL 0.2-1.0 N BILT) SGOT/AST (test code = AST) 11 units/L 15-37 L SGPT/ALT (test code = ALT) 12 units/L 12-78 N ALKALINE PHOSPHATASE TOTAL (test 129 units/L 46-116 H code = ALKP) CBC W/AUTO [id number] 19:46:00 Test Item Value Reference Range Interpretation Comments WHITE BLOOD CELL (test code = WBC) 14.0 K/mm3 6.5-12.3 H RED BLOOD CELL (test code = RBC) 3.33 M/mm3 3.51-4.69 L HEMOGLOBIN (test code = HGB) 9.6 g/dL 10.1-13.8 L HEMATOCRIT (test code = HCT) 29.8 % 32.5-41.8 L MEAN CELL VOLUME (test code = MCV) 89.5 fL 84.6-96.6 N MEAN CELL HGB (test code = MCH) 28.8 pg 27.3-33.9 N MEAN CELL HGB CONCETRATION (test 32.2 gm/dL 32.0-34.2 N code = MCHC) RED CELL DISTRIBUTION WIDTH (test 12.8 % 12.2-16.3 N code = RDW) PLATELET COUNT (test code = PLT) 282 K/mm3 134-363 N MEAN PLATELET VOLUME (test code = 10.7 fL 9.2-12.7 N MPV) NEUTROPHIL % (test code = NT%) 67.0 % 57.9-77.3 N LYMPHOCYTE % (test code = LY%) 16.7 % 14.5-29.7 N MONOCYTE % (test code = MO%) 12.0 % 3.6-10.2 H EOSINOPHIL % (test code = EO%) 0.2 % 0.0-3.0 N BASOPHIL % (test code = BA%) 0.5 % 0.1-0.9 N NEUTROPHIL # (test code = NT#) 9.4 K/mm3 LYMPHOCYTE # (test code = LY#) 2.3 K/mm3 MONOCYTE # (test code = MO#) 1.7 K/mm3 EOSINOPHIL # (test code = EO#) 0.03 K/mm3 BASOPHIL # (test code = BA#) 0.1 K/mm3 BILE ACIDS [id number] 09:10:00 Test Item Value Reference Range Interpretation Comments BILE ACIDS TOTAL 2.5 umol/L 0.0-10.0 Performed A t: BN (test code = [facility] [id number] BILEACT) [place], [place] [id number] eric Mcdaniel MD Ph:80 [phone] RUPTURE OF [id number] 15:52:00 Test Item Value Reference Range Interpretation Comments RUPTURE OF MEMBRANES (test code NON-RUPTURED = ROM) COVID 19 Asymptomatic IH [id number] 11:02:00 Test Item Value Reference Range Interpretation Comments COVID 19 NEGATIVE NEGATIVE This test has b een Asymptomatic IH AG authorize d only for the (test code = detection ofpro teins from COVNONPUIAG) SARS-CoV-2, not for any other viruses orpathogens. Ne gative results should be treated as presumptive andconfirmed wi th a molecular assay , if necessary for patientmanageme nt. Negative result s do not rule out COVID- 19 andshould not b e used as the sole basis for treatment orpat ient management deci sions, including infec tion controldecision s. Negative result s should be considered i n thecontext of a patient's recent exposure s, history and thepresence of clinical signs and symptoms consis tent withCOVID-19. T his test has not been FD A cleared or approved; th e test hasbeen authori zed by FDA under an Emerge ncy Use Authorization(E UA) for use by justinato serenity certified under the CLIA thatmeet the re quirements to perform mode rate, high or waivedcomple xity tests. This arnol t is authorized for use at thePoint of Car e (POC), i.e., in patien t care settingsoperati ng under a CLIA Certificat e of Waiver, Certifi clementine ofCompliance, o r Certificate of Accreditation. This test is only authori adiliad for the duration of thedeclaration that circumstances e xist justifying theauthorizatio n of emergency use o f in vitro diagnostic test sfor detection and/o r diagnosis of CO VID-19 under Mdjyvbq29 4(b)(1) of the Act, 21 U.S .C. 360bbb-3(b)(1), unless theauthorizatio n is terminated or r evoked sooner. URINALYSIS [id number] 10:51:00 Test Item Value Reference Range Interpretation Comments UA COLOR (test code = COLU) YELLOW YELLOW UA APPEARANCE (test code = Slightly-Cloudy CLEAR APPU) UA GLUCOSE DIPSTICK (test NEGATIVE NEG code = DGLUU) UA BILIRUBIN DIPSTICK (test NEGATIVE NEG code = BILU) UA KETONE DIPSTICK (test code 2+ NEG A = KETU) UA SPECIFIC GRAVITY (test 1.019 1.001-1.035 N code = SGU) UA BLOOD DIPSTICK (test code NEG NEG = ZULEIMA) UA PH DIPSTICK (test code = 6.0 5-9 DEBBY) UA PROTEIN DIPSTICK (test NEGATIVE NEG code = PROU) UA UROBILINIOGEN DIPSTICK NEGATIVE mg/dL NEG (test code = URO) UA NITRITE DIPSTICK (test NEG NEG code = DEANGELO) UA LEUKOCYTE ESTERASE NEG NEG DIPSTICK (test code = LEUU) UA WBC (test code = WBCU) 0-2 #/hpf NONE SEEN UA RBC (test code = RBCU) 0-2 #/hpf NONE SEEN UA EPITHELIAL CELLS (test FEW #/HPF RARE-FEW code = EPIU) UA BACTERIA (test code = RARE /HPF RARE-FEW BACU) UA MUCUS (test code = MUCU) RARE NONE SEEN URINE SAMPLE: CLEAN CATCHCOMPREHENSIVE METABOLIC [id number] 12:46:00 Test Item Value Reference Range Interpretation Comments SODIUM (test code = NA) 137 mEq/L 135-145 N POTASSIUM (test code = K) 3.9 mEq/L 3.5-5.0 N CHLORIDE (test code = CL) 106 mEq/L 100-115 N CARBON DIOXIDE (test code = CO2) 21 mEq/L 22-31 L ANION GAP (test code = GAP) 14.00 10-20 N GLUCOSE (test code = GLU) 85 mg/dL 65-110 N BLOOD UREA NITROGEN (test code = 5 mg/dL 7-18 L BUN) GLOMERULAR FILTRATION RATE (test 146 ml/min >60 N code = GFR) CREATININE (test code = CREAT) 0.5 mg/dL 0.5-1.0 N TOTAL PROTEIN (test code = PROT) 5.8 gm/dL 6.3-8.2 L ALBUMIN (test code = ALB) 2.6 gm/dL 3.4-4.8 L CALCIUM (test code = CA) 8.1 mg/dL 8.4-10.2 L BILIRUBIN TOTAL (test code = 0.5 mg/dL 0.2-1.0 N BILT) SGOT/AST (test code = AST) 11 units/L 15-37 L SGPT/ALT (test code = ALT) 9 units/L 12-78 L ALKALINE PHOSPHATASE TOTAL (test 138 units/L 46-116 H code = ALKP) URINALYSIS [id number] 12:32:00 Test Item Value Reference Range Interpretation Comments UA COLOR (test code = COLU) YELLOW YELLOW UA APPEARANCE (test code = APPU) CLEAR CLEAR UA GLUCOSE DIPSTICK (test code = NEGATIVE NEG DGLUU) UA BILIRUBIN DIPSTICK (test code = NEGATIVE NEG BILU) UA KETONE DIPSTICK (test code = 2+ NEG A KETU) UA SPECIFIC GRAVITY (test code = 1.014 1.001-1.035 N SGU) UA BLOOD DIPSTICK (test code = NEG NEG ZULEIMA) UA PH DIPSTICK (test code = DEBBY) 7.0 5-9 UA PROTEIN DIPSTICK (test code = NEGATIVE NEG PROU) UA UROBILINIOGEN DIPSTICK (test 2.0 mg/dL NEG code = URO) UA NITRITE DIPSTICK (test code = NEG NEG DEANGELO) UA LEUKOCYTE ESTERASE DIPSTICK NEG NEG (test code = LEUU) UA WBC (test code = WBCU) 0-2 #/hpf NONE SEEN UA RBC (test code = RBCU) 0-2 #/hpf NONE SEEN UA EPITHELIAL CELLS (test code = RARE #/HPF RARE-FEW EPIU) UA BACTERIA (test code = BACU) RARE /HPF RARE-FEW UA MUCUS (test code = MUCU) 1+ NONE SEEN URINE SAMPLE: CLEAN CATCHCBC W/AUTO [id number] 12:28:00 Test Item Value Reference Range Interpretation Comments WHITE BLOOD CELL (test code = WBC) 10.4 K/mm3 6.5-12.3 N RED BLOOD CELL (test code = RBC) 3.66 M/mm3 3.51-4.69 N HEMOGLOBIN (test code = HGB) 10.6 g/dL 10.1-13.8 N HEMATOCRIT (test code = HCT) 32.7 % 32.5-41.8 N MEAN CELL VOLUME (test code = MCV) 89.3 fL 84.6-96.6 N MEAN CELL HGB (test code = MCH) 29.0 pg 27.3-33.9 N MEAN CELL HGB CONCETRATION (test 32.4 gm/dL 32.0-34.2 N code = MCHC) RED CELL DISTRIBUTION WIDTH (test 12.9 % 12.2-16.3 N code = RDW) PLATELET COUNT (test code = PLT) 255 K/mm3 134-363 N MEAN PLATELET VOLUME (test code = 10.7 fL 9.2-12.7 N MPV) NEUTROPHIL % (test code = NT%) 69.4 % 57.9-77.3 N LYMPHOCYTE % (test code = LY%) 20.4 % 14.5-29.7 N MONOCYTE % (test code = MO%) 7.9 % 3.6-10.2 N EOSINOPHIL % (test code = EO%) 0.8 % 0.0-3.0 N BASOPHIL % (test code = BA%) 0.4 % 0.1-0.9 N NEUTROPHIL # (test code = NT#) 7.2 K/mm3 LYMPHOCYTE # (test code = LY#) 2.1 K/mm3 MONOCYTE # (test code = MO#) 0.8 K/mm3 EOSINOPHIL # (test code = EO#) 0.08 K/mm3 BASOPHIL # (test code = BA#) 0.0 K/mm3 RBC MORPHOLOGY REQUIRED (test code NORMAL NORMAL = RBCM) PLATELET MORPHOLOGY REQUIRED (test NORMAL NORMAL code = PLTMR) RUPTURE OF [id number] 17:27:00 Test Item Value Reference Range Interpretation Comments RUPTURE OF MEMBRANES (test code NON-RUPTURED = ROM) COVID 19 Asymptomatic IH [id number] 17:26:00 Test Item Value Reference Range Interpretation Comments COVID 19 NEGATIVE NEGATIVE This test has b een Asymptomatic IH AG authorize d only for the (test code = detection ofpro teins from COVNONPUIAG) SARS-CoV-2, not for any other viruses orpathogens. Ne gative results should be treated as presumptive andconfirmed wi th a molecular assay , if necessary for patientmanageme nt. Negative result s do not rule out COVID- 19 andshould not b e used as the sole basis for treatment orpat ient management deci sions, including infec tion controldecision s. Negative result s should be considered i n thecontext of a patient's recent exposure s, history and thepresence of clinical signs and symptoms consis tent withCOVID-19. T his test has not been FD A cleared or approved; th e test hasbeen authori kristal by FDA under an Emerge ncy Use Authorization(E UA) for use by laborato serenity certified under the CLIA thatmeet the re quirements to perform mode rate, high or waivedcomple xity tests. This arnol t is authorized for use at thePoint of Car e (POC), i.e., in patien t care settingsoperati ng under a CLIA Certificat e of Waiver, Certifi clementine ofCompliance, o r Certificate of Accreditation. This test is only authori zealissa for the duration of thedeclaration that circumstances e xist justifying theauthorizatio n of emergency use o f in vitro diagnostic test sfor detection and/o r diagnosis of CO VID-19 under Opdovdy65 4(b)(1) of the Act, 21 U.S .C. 360bbb-3(b)(1), unless theauthorizatio n is terminated or r evoked sooner. URINALYSIS [id number] 14:34:00 Test Item Value Reference Range Interpretation Comments UA COLOR (test code = COLU) STRAW YELLOW UA APPEARANCE (test code = Slightly-Cloudy CLEAR APPU) UA GLUCOSE DIPSTICK (test NEGATIVE NEG code = DGLUU) UA BILIRUBIN DIPSTICK (test NEGATIVE NEG code = BILU) UA KETONE DIPSTICK (test code NEGATIVE NEG = KETU) UA SPECIFIC GRAVITY (test 1.006 1.001-1.035 N code = SGU) UA BLOOD DIPSTICK (test code NEG NEG = ZULEIMA) UA PH DIPSTICK (test code = 7.0 5-9 DEBBY) UA PROTEIN DIPSTICK (test NEGATIVE NEG code = PROU) UA UROBILINIOGEN DIPSTICK NEGATIVE mg/dL NEG (test code = URO) UA NITRITE DIPSTICK (test NEG NEG code = DEANGELO) UA LEUKOCYTE ESTERASE NEG NEG DIPSTICK (test code = LEUU) UA WBC (test code = WBCU) 0-2 #/hpf NONE SEEN UA RBC (test code = RBCU) 0-2 #/hpf NONE SEEN UA EPITHELIAL CELLS (test FEW #/HPF RARE-FEW code = EPIU) UA BACTERIA (test code = FEW /HPF RARE-FEW BACU) UA MUCUS (test code = MUCU) RARE NONE SEEN URINE SAMPLE: CLEAN CATCHComment On arrival if delivery is not imminentHE[facility] W/AUTO [id number] 09:02:00 Test Item Value Reference Range Interpretation Comments WHITE BLOOD CELL (test code = WBC) 12.5 K/mm3 6.5-12.3 H RED BLOOD CELL (test code = RBC) 2.91 M/mm3 3.51-4.69 L HEMOGLOBIN (test code = HGB) 8.3 g/dL 10.1-13.8 L HEMATOCRIT (test code = HCT) 26.0 % 32.5-41.8 L MEAN CELL VOLUME (test code = MCV) 89.3 fL 84.6-96.6 N MEAN CELL HGB (test code = MCH) 28.5 pg 27.3-33.9 N MEAN CELL HGB CONCETRATION (test 31.9 gm/dL 32.0-34.2 L code = MCHC) RED CELL DISTRIBUTION WIDTH (test 12.3 % 12.2-16.3 N code = RDW) PLATELET COUNT (test code = PLT) 222 K/mm3 134-363 N MEAN PLATELET VOLUME (test code = 11.0 fL 9.2-12.7 N MPV) NEUTROPHIL % (test code = NT%) 75.3 % 57.9-77.3 N LYMPHOCYTE % (test code = LY%) 18.7 % 14.5-29.7 N MONOCYTE % (test code = MO%) 4.8 % 3.6-10.2 N EOSINOPHIL % (test code = EO%) 0.2 % 0.0-3.0 N BASOPHIL % (test code = BA%) 0.2 % 0.1-0.9 N NEUTROPHIL # (test code = NT#) 9.4 K/mm3 LYMPHOCYTE # (test code = LY#) 2.3 K/mm3 MONOCYTE # (test code = MO#) 0.6 K/mm3 EOSINOPHIL # (test code = EO#) 0.03 K/mm3 BASOPHIL # (test code = BA#) 0.0 K/mm3 RBC MORPHOLOGY REQUIRED (test code NORMAL NORMAL = RBCM) PLATELET MORPHOLOGY REQUIRED (test NORMAL NORMAL code = PLTMR) RUPTURE OF [id number] 03:32:00 Test Item Value Reference Range Interpretation Comments RUPTURE OF MEMBRANES (test code = RUPTURED ROM) AB HIV 1 20:55:00 Test Item Value Reference Range Interpretation Comments AB HIV 1 2 (test code = NONREACTIVE INDEX NONREACTIVE [id number]) IS CONSENT FORM SIGNED FOR HIV TESTING? NAG HEPATITIS B [id number] 20:55:00 Test Item Value Reference Range Interpretation Comments AG HEPATITIS B NON REACTIVE NonReactive Previously re ported SURFACE (test code INDEX result: N ONREACTIVE = HBSAG) INDEXEdited by: HORACIO on 05/06/21:2054HB SAG prev. reported as:NONREACTIVE . . IS CONSENT FORM SIGNED FOR HIV TESTING? NAB HEPATITIS C [id number] 20:55:00 Test Item Value Reference Range Interpretation Comments AB HEPATITIS C NON REACTIVE NON REACT. A Previously re ported (test code = INDEX result: NONREAC TIVE HCVAB) INDEXEdited by: HORACIO on 05/06/21:2054HC VAB prev. reported as:NONREACTIVE . . SIGNAL TO CUTOFF <0.02 <0.80 N (test code = CUTOFF) IS CONSENT FORM SIGNED FOR HIV TESTING? NAB [id number] 20:55:00 Test Item Value Reference Range Interpretation Comments AB TREPONEMA (test code = TREPAB) NONREACTIVE NONREACTIVE IS CONSENT FORM SIGNED FOR HIV TESTING? NAB HIV 1 20:55:00 Test Item Value Reference Range Interpretation Comments AB HIV 1 2 (test code = NONREACTIVE INDEX NONREACTIVE A [id number]) IS CONSENT FORM SIGNED FOR HIV TESTING? NAG HEPATITIS B [id number] 20:55:00 Test Item Value Reference Range Interpretation Comments AG HEPATITIS B SURFACE NON REACTIVE INDEX NonReactive (test code = HBSAG) IS CONSENT FORM SIGNED FOR HIV TESTING? NAB HEPATITIS [id number] 20:55:00 Test Item Value Reference Range Interpretation Comments AB HEPATITIS C (test code NON REACTIVE INDEX NON REACT. = HCVAB) IS CONSENT FORM SIGNED FOR HIV TESTING? NAG HEPATITIS B [id number] 15:32:00 Test Item Value Reference Range Interpretation Comments AG HEPATITIS B SURFACE (test code NONREACTIVE NONREACTIVE = HBSAG) IS CONSENT FORM SIGNED FOR HIV TESTING? NAB HEPATITIS C [id number] 15:32:00 Test Item Value Reference Range Interpretation Comments AB HEPATITIS C (test code = NONREACTIVE NONREACTIVE HCVAB) SIGNAL TO CUTOFF (test code = <0.02 <0.80 N CUTOFF) IS CONSENT FORM SIGNED FOR HIV TESTING? NAB [id number] 15:32:00 Test Item Value Reference Range Interpretation Comments AB TREPONEMA (test code = TREPAB) NONREACTIVE NONREACTIVE IS CONSENT FORM SIGNED FOR HIV TESTING? NAB HIV 1 15:32:00 Test Item Value Reference Range Interpretation Comments AB HIV 1 2 (test code = [id number]) NONREACTIVE IS CONSENT FORM SIGNED FOR HIV TESTING? NCOMPREHENSIVE METABOLIC [id number] 14:12:00 Test Item Value Reference Range Interpretation Comments SODIUM (test code = NA) 138 mEq/L 135-145 N POTASSIUM (test code = K) 4.2 mEq/L 3.5-5.0 N CHLORIDE (test code = CL) 108 mEq/L 100-115 N CARBON DIOXIDE (test code = CO2) 25 mEq/L 22-31 N ANION GAP (test code = GAP) 9.30 10-20 L GLUCOSE (test code = GLU) 77 mg/dL 65-110 N BLOOD UREA NITROGEN (test code = 8 mg/dL 7-18 N BUN) GLOMERULAR FILTRATION RATE (test 119 ml/min >60 N code = GFR) CREATININE (test code = CREAT) 0.6 mg/dL 0.5-1.0 N TOTAL PROTEIN (test code = PROT) 6.3 gm/dL 6.3-8.2 N ALBUMIN (test code = ALB) 2.7 gm/dL 3.4-4.8 L CALCIUM (test code = CA) 8.0 mg/dL 8.4-10.2 L BILIRUBIN TOTAL (test code = 0.4 mg/dL 0.2-1.0 N BILT) SGOT/AST (test code = AST) 13 units/L 15-37 L SGPT/ALT (test code = ALT) 17 units/L 12-78 N ALKALINE PHOSPHATASE TOTAL (test 149 units/L 46-116 H code = ALKP) CBC W/AUTO [id number] 13:39:00 Test Item Value Reference Range Interpretation Comments WHITE BLOOD CELL (test code = WBC) 9.5 K/mm3 6.5-12.3 N RED BLOOD CELL (test code = RBC) 3.48 M/mm3 3.51-4.69 L HEMOGLOBIN (test code = HGB) 9.9 g/dL 10.1-13.8 L HEMATOCRIT (test code = HCT) 30.8 % 32.5-41.8 L MEAN CELL VOLUME (test code = MCV) 88.5 fL 84.6-96.6 N MEAN CELL HGB (test code = MCH) 28.4 pg 27.3-33.9 N MEAN CELL HGB CONCETRATION (test 32.1 gm/dL 32.0-34.2 N code = MCHC) RED CELL DISTRIBUTION WIDTH (test 12.4 % 12.2-16.3 N code = RDW) PLATELET COUNT (test code = PLT) 277 K/mm3 134-363 N MEAN PLATELET VOLUME (test code = 11.1 fL 9.2-12.7 N MPV) NEUTROPHIL % (test code = NT%) 66.5 % 57.9-77.3 N LYMPHOCYTE % (test code = LY%) 21.3 % 14.5-29.7 N MONOCYTE % (test code = MO%) 10.3 % 3.6-10.2 H EOSINOPHIL % (test code = EO%) 0.6 % 0.0-3.0 N BASOPHIL % (test code = BA%) 0.4 % 0.1-0.9 N NEUTROPHIL # (test code = NT#) 6.3 K/mm3 LYMPHOCYTE # (test code = LY#) 2.0 K/mm3 MONOCYTE # (test code = MO#) 1.0 K/mm3 EOSINOPHIL # (test code = EO#) 0.06 K/mm3 BASOPHIL # (test code = BA#) 0.0 K/mm3 RBC MORPHOLOGY REQUIRED (test code NORMAL NORMAL = RBCM) PLATELET MORPHOLOGY REQUIRED (test NORMAL NORMAL code = PLTMR) COMPREHENSIVE METABOLIC [id number] 18:42:00 Test Item Value Reference Range Interpretation Comments SODIUM (test code = NA) 139 mEq/L 135-145 N POTASSIUM (test code = K) 3.7 mEq/L 3.5-5.0 N CHLORIDE (test code = CL) 105 mEq/L 100-115 N CARBON DIOXIDE (test code = CO2) 21 mEq/L 22-31 L ANION GAP (test code = GAP) 17.10 10-20 N GLUCOSE (test code = GLU) 79 mg/dL 65-110 N BLOOD UREA NITROGEN (test code = 7 mg/dL 7-18 N BUN) GLOMERULAR FILTRATION RATE (test 147 ml/min >60 N code = GFR) CREATININE (test code = CREAT) 0.5 mg/dL 0.5-1.0 N TOTAL PROTEIN (test code = PROT) 6.0 gm/dL 6.3-8.2 L ALBUMIN (test code = ALB) 2.6 gm/dL 3.4-4.8 L CALCIUM (test code = CA) 8.2 mg/dL 8.4-10.2 L BILIRUBIN TOTAL (test code = 0.6 mg/dL 0.2-1.0 N BILT) SGOT/AST (test code = AST) 19 units/L 15-37 N SGPT/ALT (test code = ALT) 13 units/L 12-78 N ALKALINE PHOSPHATASE TOTAL (test 125 units/L 46-116 H code = ALKP) HEMOL. NOTIFIED CJURINALYSIS [id number] 17:37:00 Test Item Value Reference Range Interpretation Comments UA COLOR (test code = COLU) YELLOW YELLOW UA APPEARANCE (test code = Slightly-Cloudy CLEAR APPU) UA GLUCOSE DIPSTICK (test NEGATIVE NEG code = DGLUU) UA BILIRUBIN DIPSTICK (test NEGATIVE NEG code = BILU) UA KETONE DIPSTICK (test code 2+ NEG A = KETU) UA SPECIFIC GRAVITY (test 1.026 1.001-1.035 N code = SGU) UA BLOOD DIPSTICK (test code NEG NEG = ZULEIMA) UA PH DIPSTICK (test code = 5.0 5-9 DEBBY) UA PROTEIN DIPSTICK (test 1+ NEG A code = PROU) UA UROBILINIOGEN DIPSTICK NEGATIVE mg/dL NEG (test code = URO) UA NITRITE DIPSTICK (test NEG NEG code = DEANGELO) UA LEUKOCYTE ESTERASE NEG NEG DIPSTICK (test code = LEUU) UA WBC (test code = WBCU) 0-2 #/hpf NONE SEEN UA RBC (test code = RBCU) 0-2 #/hpf NONE SEEN UA EPITHELIAL CELLS (test MODERATE #/HPF RARE-FEW A code = EPIU) UA BACTERIA (test code = RARE /HPF RARE-FEW BACU) UA MUCUS (test code = MUCU) 1+ NONE SEEN URINE SAMPLE: CLEAN CATCHCBC W/AUTO [id number] 17:14:00 Test Item Value Reference Range Interpretation Comments WHITE BLOOD CELL (test code = WBC) 10.9 K/mm3 6.5-12.3 N RED BLOOD CELL (test code = RBC) 3.50 M/mm3 3.51-4.69 L HEMOGLOBIN (test code = HGB) 10.5 g/dL 10.1-13.8 N HEMATOCRIT (test code = HCT) 32.6 % 32.5-41.8 N MEAN CELL VOLUME (test code = MCV) 93.1 fL 84.6-96.6 N MEAN CELL HGB (test code = MCH) 30.0 pg 27.3-33.9 N MEAN CELL HGB CONCETRATION (test 32.2 gm/dL 32.0-34.2 N code = MCHC) RED CELL DISTRIBUTION WIDTH (test 13.5 % 12.2-16.3 N code = RDW) PLATELET COUNT (test code = PLT) 243 K/mm3 134-363 N MEAN PLATELET VOLUME (test code = 10.9 fL 9.2-12.7 N MPV) NEUTROPHIL % (test code = NT%) 87.3 % 57.9-77.3 H LYMPHOCYTE % (test code = LY%) 5.1 % 14.5-29.7 L MONOCYTE % (test code = MO%) 5.6 % 3.6-10.2 N EOSINOPHIL % (test code = EO%) 0.3 % 0.0-3.0 N BASOPHIL % (test code = BA%) 0.4 % 0.1-0.9 N NEUTROPHIL # (test code = NT#) 9.6 K/mm3 LYMPHOCYTE # (test code = LY#) 0.6 K/mm3 MONOCYTE # (test code = MO#) 0.6 K/mm3 EOSINOPHIL # (test code = EO#) 0.03 K/mm3 BASOPHIL # (test code = BA#) 0.0 K/mm3 RBC MORPHOLOGY REQUIRED (test code NORMAL NORMAL = RBCM) PLATELET MORPHOLOGY REQUIRED (test NORMAL NORMAL code = PLTMR) - US PREG AFTER [id number] 11:21:00 [facility] 1990 Sex: F Patient Name: SHARYN RUSSELL Unit No: [id number] EXAMS: CPT CODE: [id number] US PREG AFTER TRI [address] [facility] [address] [place], [place] [address] OBSTETRICAL ULTRASOUND REPORT ------- Pat. Name: SHARYN RUSSELL Pat. No: [id number] Study Date: 01/04/2021 10:00am , Age: 13 1990, 30 Pregnancies: 3, Para 1 LMP: 08/13/2020 GA by LMP: 20w4d GA by US: 20w0d GA Selected: 20w4d (LMP) DANNA: 05/20/2021 Referring MD: ABEL MCGOVERN Supply Chain Associate: Harriet Montiel RDMS, RVT CPT4: [id number] Admitting MD: ABEL MCGOVERN Hist/Ind: SCAN 1 ANATOMY MEASURE MENTS AGE GROWTH EVALUATION Measurement GA Range Srce %for GA Ratios ----- ---- ------- BPD 4.6 cm 19w6d (65i2c-14e6w) Hadl BPD 17% FL/BPD 0.72 HC 17.6 cm 20w0d (20f6k-39l3z) Hadl HC 33% FL/AC 0.22 APD 4.8 cm APD HC/AC 1.16 (1.06 - 1.24) TAD 4.9 cm TAD CI 0.76 (0.70 - 0.86) AC 15.2 cm 20w1d (86x3d-59y8c) Hadl AC 40% FL 3.3 cm 20w0d (89l1z-70x9g) Hadl FL 36% HL 3.1 cm 20w2d (49x3y-19e1b) Monster HL 45% GA for sonogram 20w0d (61p0b-80b7j) Weight Estimate: based on (BPD,HC,AC,FL) Hadlock Weight: 347 gm (297-398) Hadlock : 0lbs, 12oz Cervical Length: 6.0 cm Heart Rate: 148 bpm MATERNAL ANATOMY Ovaries LxHxW (cm) Right 3.6 x 1.3 x 2.7 Vol: 6.6cc Left 3.2 x 1.9 x 2.1 Vol: 6.7cc CLINICAL SUMMARY Type of Gestation: Patten Intrauterine in variable presentation. size is appropriate for gestational age. growth: Consistent with normal growth motion and organs seen: somatic activity observed body and limb movements seen Four chamber heart observed [facility] NAME: SHARYN RUSSELL Radiology Department PHYS: Abel Plummer MD [address] : 1990 AGE: 30 SEX: [place] [address] LOC: KolePAULA PHONE #: [phone] EXAM DATE: 01/04/2021 STATUS:REG CLI FAX #: [phone] RAD NO: Page 1 Signed Report (CONTINUED) Patient Name: RUSSELLSHARYN THOMPSON Unit No: [id number] EXAMS: CPT CODE: [id number] US PREG AFTER 1ST TRI 23308 (Continued) Left ventricular outflow tract (LVOT) seen Right ventricular outflow tract (RVOT) seen Regular cardiac rhythm observed Normal intracranial anatomy seen face and nasal bone seen Umbilical cord insertion in fetus seen stomach, Renal Fossa, Bladder and Spine seen Three vessel umbilical cord noted All fourextremities observed abnormalities observed: None seen at this exam Placental location: Anterior Placental maturity : Grade 1 There is no evidence of placenta previa. Amniotic fluid volume is normal. Uterus and adnexa: No significant abnormality is seen. Thank you for allowing us to participate in the care of this patient. Israel Velasquez M.D. Electronic Signature 01/04/2021 11:21am at 1121 Reported and signed by: Kelley Velasquez MD CC: Abel Mcgovern MD Technologist: Harriet Montiel RDMS, RVT Probe: Trnscrbd D/ (1121) t.SDR.CER Orig Print D/T: S: 01/04/2021 (1121) [facility] NAME: SHARYN RUSSELL Radiology Department PHYS: Abel Plummer MD [address] : 1990 AGE: 30 SEX: F [place] [address] LOC: KoleRAD PHONE #: [phone] EXAM DATE: 01/04/2021 STATUS: REG CLI FAX #: [phone] RAD NO: Page 2 Signed Report Patient Name: SHARYN RUSSELL Unit No: [id number] EXAMS: CPT CODE: [id number] US PREG AFTER 1ST TRI [address] (Continued) [facility] NAME: SHARYN RUSSELL Radiology Department PHYS: Abel Plummer MD [address] : 1990 AGE: 30 SEX: F [place] [address] LOC: [facility] PHONE #: [phone] EXAM DATE: 01/04/2021 STATUS: REG CLI FAX #: [phone] RAD NO: Page 3 Signed [id number] 04:03:00 Test Item Value Reference Range Interpretation Comments APPEARANCE (test code = Hazy Clear A 6844315177) COLOR (test code = Yellow Yellow 9827170339) PH (test code = 4.8-8.0 5699417357) SP GRAVITY (test code = 1.003-1.030 0100214813) GLU U QUAL (test code = Normal Normal 9651627984) BLOOD (test code = Negative Negative 9264559839) KETONES (test code = Negative Negative 0805919136) PROTEIN (test code = Negative Negative 2887-8) UROBILIN (test code = Normal Normal 5741300887) BILIRUBIN (test code = Negative Negative 6212692376) NITRITE (test code = Negative Negative 3761629617) LEUK MARVIN (test code = 25/uL Negative A 2487429188) RBC/HPF (test code = See_Comment [Autom ated message] 2185622105) The system Saygent generated this result transmitted ref erence range: 0 - 3 HP F. The reference range was not used to int erpret this result as normal/abnormal . WBC/HPF (test code = See_Comment [Autom ated message] 0265992902) The system Saygent generated this result transmitted ref erence range: 0 - 5 HP F. The reference range was not used to int erpret this result as normal/abnormal . BACTERIA (test code = Few Negative A 1766348861) MUCOUS (test code = Slight Negative LPF A 2639953537) SQ EPITH (test code = HPF 2756770294) Lab Interpretation (test Abnormal code = 17848-2) [facility] - INFLUENZA A & B DIRECT [id number] 03:17:00 Test Item Value Reference Range Interpretation Comments Influenza A (test code = 07202-5) Negative Negative Influenza B (test code = 25772-5) Negative Negative Lab Interpretation (test code = Normal 95022-1) [facility] STREP SCREEN FOR GROUP [id number] 03:15:00 Test Item Value Reference Range Interpretation Comments Streptococcus pyogenes (group A) Negative Negative antigen (test code = 07661-9) Lab Interpretation (test code = Normal 97069-8) [facility] LW JNT W/O CONT [id number] 09:09:00 [facility] : 1990 Sex: F Patient Name: SHARYN RUSSELL Unit No: [id number] EXAMS: CPT CODE: [id number] MRI LW JNT W/[place] [address] MRI OF THE RIGHT KNEE DIAGNOSIS: 1. The patient is status post anterior cruciate ligament reconstruction and the graft is intact. 2. Truncation of the free edge of the posterior horn of the lateral meniscus consistent with postsurgical change versus tear. There is also cyst formation abutting the an terior root of the lateral meniscus with contour irregularity peripherally most consistent with a meniscal tear and meniscal cyst. Correlation is recommended. COMMENT: COMPARISON: No prior exams available. Scans were performed in the sagittal, axial and coronal planes utilizing T1, spin density with fat saturation and T2-weighted pulse sequences. Postsurgical changes are present. No other focal bony or hyaline cartilage abnormalities are seen. The lateral meniscus is as described. Medial meniscus is within normal limits in signal and configuration. No abnormality is seen involving the posterior cruciate or medial or lateral collateral ligaments. The anterior cruciate ligament has been reconstructed and the graft is intact. A small amount of joint fluid is seen without evidence for a loose body. at 0909 Reported and signed by: Mariano Noguera MD CC: Onur Cantu MD Technologist: Maikel Hodges,RT(R) Transcribed D / (908) [facility] NAME: SHARYN RUSSELL [address] [facility] PHYS: Onur Morrow : 1990 AGE: 29 SEX: F [place] [address] LOC: Y.MRI PHONE #: [phone] EXAM DATE: 09/13/2020 STATUS: REG CLI FAX #: [phone] RAD #: D/C DT PAGE 1 Signed Report Patient Name: SHARYN RUSSELL Unit No: [id number] EXAMS: CPT CODE: [id number] [place] LW JNT W/[place] [address] <Continued> Orig Print D/T: S: 09/13/2020 (911) [facility] NAME: SHARYN RUSSELL [address] [facility] PHYS: Onur Morrow : 1990 AGE: 29 SEX: F [place] [address] LOC: Y.MRI PHONE #: [phone] EXAM DATE: 09/13/2020 STATUS: REG CLI FAX #: [phone] RAD #: D/C DT PAGE 2 Signed ReportHGB [id number] 04:41:00 Test Item Value Reference Range Interpretation Comments HEMOGLOBIN (test code = HGB) 10.2 g/dL 10.7-13.9 L HEMATOCRIT (test code = HCT) 30.6 % 32.1-42.1 L AB HIV 1 16:06:00 Test Item Value Reference Range Interpretation Comments AB HIV 1 2 (test Nonreactive NonReactive It is recog nized that code = [id number]) currently av ailable assays for thed etection of antibodies t o HIV-1 and/or HIV-2 ma y notdetect all i nfected individuals. A negative test result martins snot exclude the pos sibility of exposure to or infection withH IV. HIV antibodies may be undetectable in some stages ofthe in fection and in some cli nical conditions. IS CONSENT FORM SIGNED FOR HIV TESTING? YAG HEPATITIS B [id number] 16:06:00 Test Item Value Reference Range Interpretation Comments AG HEPATITIS B SURFACE (test code NONREACTIVE NONREACTIVE = HBSAG) IS CONSENT FORM SIGNED FOR HIV TESTING? YAB HEPATITIS C [id number] 16:06:00 Test Item Value Reference Range Interpretation Comments AB HEPATITIS C (test code = NONREACTIVE NONREACTIVE HCVAB) SIGNAL TO CUTOFF (test code = <0.02 <0.80 N CUTOFF) IS CONSENT FORM SIGNED FOR HIV TESTING? YAB [id number] 16:06:00 Test Item Value Reference Range Interpretation Comments AB TREPONEMA (test code = TREPAB) NONREACTIVE NONREACTIVE IS CONSENT FORM SIGNED FOR HIV TESTING? YAB HIV 1 16:06:00 Test Item Value Reference Range Interpretation Comments AB HIV 1 2 (test Nonreactive NonReactive It is recog nized that code = [id number]) currently av ailable assays for thed etection of antibodies t o HIV-1 and/or HIV-2 ma y notdetect all i nfected individuals. A negative test result martins snot exclude the pos sibility of exposure to or infection withH IV. HIV antibodies may be undetectable in some stages ofthe in fection and in some cli nical conditions. IS CONSENT FORM SIGNED FOR HIV TESTING? YAG HEPATITIS B [id number] 20:59:00 Test Item Value Reference Range Interpretation Comments AG HEPATITIS B SURFACE (test code NONREACTIVE NONREACTIVE = HBSAG) IS CONSENT FORM SIGNED FOR HIV TESTING? YAB HEPATITIS C [id number] 20:59:00 Test Item Value Reference Range Interpretation Comments AB HEPATITIS C (test code = NONREACTIVE NONREACTIVE HCVAB) SIGNAL TO CUTOFF (test code = <0.02 <0.80 N CUTOFF) IS CONSENT FORM SIGNED FOR HIV TESTING? YAB [id number] 20:59:00 Test Item Value Reference Range Interpretation Comments AB TREPONEMA (test code = TREPAB) NONREACTIVE NONREACTIVE IS CONSENT FORM SIGNED FOR HIV TESTING? YAB HIV 1 20:59:00 Test Item Value Reference Range Interpretation Comments AB HIV 1 2 (test code = [id number]) NONREACTIVE IS CONSENT FORM SIGNED FOR HIV TESTING? YAG HEPATITIS B [id number] 20:17:00 Test Item Value Reference Range Interpretation Comments AG HEPATITIS B SURFACE (test code NONREACTIVE NONREACTIVE = HBSAG) IS CONSENT FORM SIGNED FOR HIV TESTING? YAB HEPATITIS C [id number] 20:17:00 Test Item Value Reference Range Interpretation Comments AB HEPATITIS C (test code = HCVAB) NONREACTIVE SIGNAL TO CUTOFF (test code = CUTOFF) <0.80 IS CONSENT FORM SIGNED FOR HIV TESTING? YAB [id number] 20:17:00 Test Item Value Reference Range Interpretation Comments AB TREPONEMA (test code = TREPAB) NONREACTIVE NONREACTIVE IS CONSENT FORM SIGNED FOR HIV TESTING? YAB HIV 1 20:17:00 Test Item Value Reference Range Interpretation Comments AB HIV 1 2 (test code = AFI01IX) NONREACTIVE IS CONSENT FORM SIGNED FOR HIV TESTING? YCBC W/AUTO [id number] 19:51:00 Test Item Value Reference Range Interpretation Comments WHITE BLOOD CELL (test code = WBC) 9.8 K/mm3 6.6-12.1 N RED BLOOD CELL (test code = RBC) 3.46 M/mm3 3.45-5.01 N HEMOGLOBIN (test code = HGB) 10.8 g/dL 10.7-13.9 N HEMATOCRIT (test code = HCT) 32.5 % 32.1-42.1 N MEAN CELL VOLUME (test code = MCV) 94 fL 84.1-94.8 N MEAN CELL HGB (test code = MCH) 31.2 pg 27-35 N MEAN CELL HGB CONCETRATION (test 33.2 gm/dL 32.2-34.1 N code = MCHC) RED CELL DISTRIBUTION WIDTH (test 12.6 % 12.4-16.5 N code = RDW) PLATELET COUNT (test code = PLT) 240 K/mm3 133-385 N IMMATURE PLATELET FRACTION (test 0.0 % 0.0-10.8 N code = IPF) MEAN PLATELET VOLUME (test code = 11.1 fl 9.1-12.7 N MPV) NEUTROPHIL % (test code = NT%) 68.0 % 56.5-79.4 N LYMPHOCYTE % (test code = LY%) 21.9 % 14.3-34.3 N MONOCYTE % (test code = MO%) 8.6 % 5.1-10.4 N EOSINOPHIL % (test code = EO%) 0.3 % 0.1-3.0 N BASOPHIL % (test code = BA%) 0.4 % 0.1-1.0 N NEUTROPHIL # (test code = NT#) 6.7 K/mm3 LYMPHOCYTE # (test code = LY#) 2.1 K/mm3 MONOCYTE # (test code = MO#) 0.8 K/mm3 EOSINOPHIL # (test code = EO#) 0.03 K/mm3 BASOPHIL # (test code = BA#) 0.0 K/mm3 RBC MORPHOLOGY REQUIRED (test code NORMAL NORMAL = RBCM) PLATELET MORPHOLOGY REQUIRED (test NORMAL NORMAL code = PLTMR) AMNISURE (ROM) [id number] 23:28:00 Test Item Value Reference Range Interpretation Comments AMNISURE (ROM) TEST (test code = NON-RUPTURED NON-RUPTURE AMNI) : *Specimen Comment: MANISH Thapa QC OK? YES- US FLW [id number] 10:01:00 Patient Name: SHARYN RUSSELL Unit No: [id number] EXAMS: CPT CODE: [id number] [place] [address] [facility] [address] [place] [address] OBSTETRICAL ULTRASOUND REPORT ------ Pat. Name: SHARYN RUSSELL Pat. No: [id number] Study Date: 10/29/2019 9:11am , Age: 11 1990, 28 LMP: 01/16/2019 GA by LMP: 40w6d GA by 1st: 40w6d GA by US: 36w3d GA Selected: 39w6d (From Known E) DANNA: 10/30/2019 Referring MD: MARIO FERRER Supply Chain Associate: Julia Sol RDMS CPT4: USPREGFU Admitting MD: MARIO FERRER Hist/Ind: SCAN 2 FU GROWTH MEASUREMENTS AGE GROWTH EVALUATION Measurement GA Range Srce %for GA Ratios ----- ---- ------- BPD 8.6 cm 35w1d (80a5w-38k8c) Hadl BPD <05 FL/BPD 0.85 (0.71 - 0.87) HC 32.5 cm 36w2d (78k2l-91t7g) Hadl HC <05 FL/AC 0.22 (0.20 - 0.24) APD 10.2 cm APD HC/AC 0.97 (0.89 - 1.08) TAD 11.1 cm TAD CI 0.77 (0.70 - 0.86) AC 33.5 cm 37w4d (27j9j-57a7p) Hadl AC 10% FL 7.3 cm 37w2d (43m5f-91k8x) Hadl FL 12% HL 6.2 cm 36w0d (52u4o-88f8w) Monster HL <05 GA for sonogram 36w3d (74n0b-05i9q) Weight Estimate: based on (BPD,HC,AC,FL) Hadlock Weight: 3086 gm(6820-3256) Hadlo : 6lbs, 12oz Normal: 3264 gm (7856-8360) Brenn Wt% 36% for 39.9 wks Heart Rate: 126 bpm Amniotic Fluid Index: 16.0cm (07.1-21.6) Q1: 3.5cm Q2: 4.2cm Q3: 4.0cm Q4: 4.3cm ------- MATERNAL ANATOMY Ovaries LxHxW (cm) Right 2.2 x 1.5 x 2.4 Vol: 4.1cc Left 2.2 x 1.6 x 2.0 Vol: 3.7cc CLINICAL SUMMARY Type of Gestation: Patten Intrauterine in vertex presentation. size is appropriate for gestational age. growth: Consistent with normal growth motion and organs seen: [facility] NAME: SHARYN RUSSELL Radiology Department PHYS: Mario Saunders III [id number] Go : 1990 AGE: 29 SEX: [place], [place] [address] LOC: [facility] PHONE #: [phone] EXAM DATE: 10/29/2019 STATUS: REG CLI FAX #: [phone] RAD NO: Page 1 Signed Report (CONTINUED) Patient Name: SHARYN RUSSELL Unit No: [id number] EXAMS: CPT CODE: [id number] [place] [address] (Continued) somatic activity observed body and limb movements seen Regular cardiac rhythm observed Placental location: Posterior Right lateral Placental maturity : Grade 3 There is no evidence of placenta previa. Amniotic fluid volume is normal. Uterus and adnexa: No significant abnormality is seen. Thank you for allowing us to participate in the care of this patient.Israel Velasquez M.D. Electronic Signature 10/29/2019 10:01am at 1001 Reported and signed by: Kelley Velasquez MD CC: Mario Ferrer III, MD Technologist: Julia Sol RDMS Probe: Trnscrbd D/ (1001) t.SDR.CER Orig Print D/T: S: 10/29/2019 (1001) [facility] NAME: SHARYN RUSSELL Radiology Department PHYS: Mario Saunders III, MD [address] : 1990 AGE: 29 SEX: F [place] [address] LOC: [facility] PHONE #: [phone] EXAM DATE: 10/29/2019 STATUS: REG CLI FAX #: [phone] RAD NO: Page 2 Signed Report Patient Name: SHARYN RUSSELL Unit No: [id number] EXAMS: CPT CODE: [id number] [place] [address] (Continued) [facility] NAME: SHARYN RUSSELL Radiology Department PHYS: Mario Saunders III, MD [address] : 1990 AGE: 29 SEX: F [place] [address] LOC: [facility] PHONE #: [phone] EXAM DATE: 10/29/2019 STATUS: REG CLI FAX #: [phone] RAD NO: Page 3 Signed Report- US PREG AFTER [id number] 12:18:00 Patient Name: SHARYN RUSSELL Unit No: [id number] EXAMS: CPT CODE: [id number] US PREG AFTER TRI [address] [facility] [address] [place], [place] [address] OBSTETRICAL ULTRASOUND REPORT -------- Pat. Name: SHARYN RUSSELL Pat. No: [id number] Study Date: 06/09/2019 10:46am , Age: 13 1990, 28 LMP: 01/16/2019 GA by LMP: 20w4d Jaimee US: 18w6d GA Selected: 20w4d (LMP) DANNA: 10/23/2019 Referring MD: Nabil Martin Supply Chain Associate: Julia strauss RDMS CPT4: [id number] Admitting MD: MARIO FERRER Hist/Ind: SCAN 1 ANATOMY SCAN/DATES --------- MEASUREMENTS AGE GROWTH EVALUATION Measurement GA Range Srce %for GA Ratios ----- ---- ------- BPD 4.2 cm 18w4d (15v1b-72v2t) Hadl BPD <05 FL/BPD 0.71 HC 16.2 cm 18w6d (11b2y-59p4j) Hadl HC <05 FL/AC 0.22 APD 4.2 cm APD HC/AC 1.18 (1.06 - 1.24) TAD 4.5 cm TAD CI 0.76 (0.70 - 0.86) AC 13.7 cm 18w6d (84i5k-45q9r) Hadl AC 9% FL 3.0 cm 18w6d (06n7n-34f0o) Hadl FL 13% HL 2.9 cm 19w3d (95o4g-01j0k) Monster HL 31% GA for sonogram 18w6d (89b9y-00u1q) Weight Estimate: basedon (BPD,HC,AC,FL) Hadlock Weight: 276 gm (236-317) Hadlock : 0lbs, 9oz Cervical Length: 4.9 cm FetalHeart Rate: 158 bpm CLINICAL SUMMARY Type of Gestation: Patten Intrauterine in variable presentation. size is SLIGHTLY LESS THAN EXPECTED for gestational age. growth: RECOMMEND CORRELATION WITH EARLY OFFICESCAN motion and organs seen: heart motion seen somatic activity observed body and limb movements seen Four chamber heart observed Left ventricular outflow tract (LVOT) seen Right ventricular outflow tract (RVOT) seen Regular cardiac rhythm observed Normal intracranial anatomy seen Umbilical cord insertion in fetus seen stomach, Renal Fossa, Bladder and Spine seen Three vessel umbilical cord noted [facility] NAME: SHARYN RUSSELL Radiology Department PHYS: Mario Saunders III, MD [address] : 1990 AGE: 28 SEX: F [place], [place] [address]VQTA NO: [id number] LOC: [facility] PHONE #: [phone] EXAM DATE: 06/09/2019 STATUS: REG CLI FAX #:[phone] RAD NO: Page 1 Signed Report (CONTINUED) Patient Name: SHARYN RUSSELL Unit No: [id number] EXAMS: CPT CODE: [id number] US PREG AFTER TRI 30325 (Continued) abnormalities observed: None seen at this exam Placental location: Posterior Right lateral Placental maturity : Grade 1 Thereis no evidence of placenta previa. Amniotic fluid volume is normal. Uterus and adnexa: No significant abnormality is seen. FOLLOW UP FOR GROWTH CLINICALLY INDICATED. Thank you for allowing us to participate in the care of this patient. Israel Velasquez M.D. Electronic Signature 06/09/2019 12:18pm at 1218 Reported andsigned by: Kelley Velasquez MD CC: Mario Ferrer III, MD Technologist: Julia Sol RDMS Probe: Trnscrbd D/ (1218) t.SDR.CER Orig Print D/T: S: 06/09/2019 (1218) [facility] NAME: MORASHARYN King Radiology Department PHYS: Mario Saunders III, MD [address] : [birth year] AGE: 28 SEX: F [place] [address] LOC: [facility] PHONE #: [phone] EXAM DATE: 06/09/2019 STATUS: REG CLI FAX #: [phone] RAD NO: Page 2 Signed Report Patient Name: SHARYN RUSSELL Unit No: [id number] EXAMS: CPT CODE: [id number] US PREG AFTER TRI 62030 (Continued) [facility] [place] [facility] NAME: MORASHARYN King Radiology Department PHYS: Mario Saunders III, MD [address] : 1990 AGE: 28 SEX: F [place] [address] LOC: [facility]PHONE #: [phone] EXAM DATE: 06/09/2019 STATUS: REG CLI FAX #: [phone] RAD NO: Page 3 Signed Report Notes Date/Time Note Provider Source 2023-05-10 Formatting of this note might be differe nt from the original. Ryanne Hwang RN [facility] 15:26:20-00:00 Pt given printed and verbal discharge instructions regarding eye, encouraged hydration, Prescriptions provided Discussed ibuprofen and to t starr with food to avoid GI distress, alternate with Tylenol to help with pain and/or fever Discussed antibiotic therapy and to take until all completed unless adverse reaction occurs - if occurs, discontinue medication and follow up with pcp/seek medical attention Discussed medication side af fects and to avoid driving/operating machinery/or engaging in activities requiring alertness while taking. Pt verbalized understanding of instructions,pt encouraged to follow up with pcp and or specialist Awake, alert oriented, resp reg unlabored, skin w/d, pt leaving in no apparent distress, Electronically signed by Ryanne Hwang RN a t 05/10/2023 3:27 PM CDT 2023-05-10 [facility] 15:24:26-00:00 Ambulatory steady gait to restroom Electronically signed by Ryanne Hwang RN a t 05/10/2023 3:24 PM CDT 2023-05-10 Formatting of this note might be differe nt from the original. Marc Morales RN [facility] 14:18:38-00:00 Patient CO of left eye pain/ pressure starting today, patient left eye is red and states her vision is a little blurry. Patient also CO of electric shock feeling starting 2 days ago on the right side of her face and a headache. 2022-05-18 [facility] 18:31:00-00:00 [facility] ([facility]) OB Disch REPORT#:[id number] REPORT STATUS: Signed DATE:05/18/22 TIME: 1830 PATIENT: SHARYN RUSSELL UNIT #: [id number] ROOM/BED: [address] : [birth year] AGE: 31 SEX: F ATTEND: Rafael Mcgovern MD ADM AUTHOR: Abel Mcgovern MD * ALL edits or amendments must be made on the BeatDeck/computer document * Subjective Subjective Admission EGA: Weeks: 35 EGA at delivery (wks/days): 35 2/7 wks Status/day: post , post operative Patient reports: Patient reports: No: complaints. Nursing reports: Nursing reports: No: complaints. Objective General VS: Vital Signs Date Temp Pulse Resp B/P B/P Mean Pulse Ox FiO2 05/18 97.5-98.7 82-98 18 111-138/76-88 Last Documented: Result Date Time B/P 111/76 05/18 0837 Temp 97.5 05/18 0837 Pulse 82 05/18 0837 Resp 18 05/18 0837 Pulse Ox 98 05/17 1609 B/P Mean 77.0 05/15 0100 PATIENT WEIGHT: Weight (lb): 226 Weight (oz): 6.64 Weight (kg): 102.700 Physical Exam Cardiac: normal rhythm Lungs: clear to auscultation, no rales, no rhonc hi, unlabored breathing Neuro: Exam: alert, oriented x3, normal speech Abdomen: post gravid, soft, no abnormal tenderne ss, no guarding, no rebound tenderness, normoactive bowel sounds Incision site: well approximated edges, dry, no drainage, no inflammation Lower extremities: Edema: none Discharge Summary General Assessment: nml progress Hospital course: spontaneous labor, repe at LT in labor, epidural anesthesia, spinal anesthesia, nml postop/postpart care Discharge condition: stable Discharge to: Home/Self Care Discharge diagnosis: previous uterine incision, pre-term labor, multiple gestation Baby A: status: live born Gender: male Plan: routine care Discharge Instructions Instructions: specific instr as noted Diet: Resume Home Diet/Feeds Activity: As Tolerated Additional discharge routines: Attending Follow- Up Discharge meds: Continue taking these medications: PNV WITH FE FUMARATE/FA () 1 EACH TAB 1 TABLET ORAL DAILY. Start taking the following new medications: HYDROcodone/APAP (HYDROcodone/APAP 10/325) 10 MG -325 MG TAB 1 TABLET ORAL EVERY 4 HOURS NEEDED. as neede d for SEVERE PAIN (SCALE 7- 10) Qty = 30 No Refills IBUPROFEN (MOTRIN) 600 MG TAB 600 MILLIGRAM ORAL EVERY 6 HOURS. Qty = 60 No Refills Prescriptions: e-prescribe Electronically Signed by Abel Mcgovern MD on 04/22 06/12 at 1833 RPT #:[id number] END OF REPORT 2022-05-17 [facility] 09:16:00-00:00 [facility] OB Postpart Progr Note REPORT#:[id number] REPORT STATUS: Signed DATE:05/17/22 TIME: 915 PATIENT: SHARYN RUSSELL UNIT #: [id number] ROOM/BED: [facility] : 92 AGE: 31 SEX: F ATTEND: Rafael Mcgovern MD ADM AUTHOR: Abel Mcgovern MD * ALL edits or amendments must be made on the el ectronic/computer document * Subjective Subjective Admission EGA: Weeks: 35 EGA at delivery (wks/days): 35 2/7 wks Status/Day: post , post operative Patient reports: Patient reports: No no complaints Nursing reports: Nursing reports: No complaints Objective Nursing Documentation Review Nursing Data: The data set between the solid lines has been im ported from nursing documentation. Any exceptions have been noted be low under Provider comments. Feeding preference: Post hemorrhage risk score: Medium Risk f or Hemorrhage. Provider comments on imported nursing data: [] General VS: Vital Signs: Date Time Temp Pulse Resp B/P B/P Pulse O2 O2 F low FiO2 Mean Ox Delivery Rate 05/16 2230 98.2 73 19 116/75 05/16 1610 98.3 77 20 113/69 05/16 1342 98.1 79 20 111/71 PATIENT WEIGHT: Weight (lb): 226 Weight (oz): 6.64 Weight (kg): 102.700 Physical Exam Cardiac: normal sinus rhythm Lungs: clear to auscultation Neuro: Exam: alert, oriented x3, normal speech Abdomen: soft, no abnormal tenderness, no guardi ng, no rebound tenderness, normoactive bowel sounds Incision site: well approximated edges, dry, no drainage, no inflammation Diagnosis, Assessment Plan Diagnosis, Assessment Plan Assessment: nml progress Plan: routine care Electronically Signed by Abel Mcgovern MD on 04/22 05/12 at 0918 RPT #:[id number] END OF REPORT 2022-05-16 [facility] 08:27:00-00:00 [facility] OB Postpart Progr Note REPORT#:[id number] REPORT STATUS: Signed DATE:05/16/22 TIME: 826 PATIENT: SHARYN RUSSELL UNIT #: [id number] ROOM/BED: [address] : [birth year] AGE: 31 SEX: F ATTEND: Rafael Mcgovern MD ADM AUTHOR: Abel Mcgovern MD * ALL edits or amendments must be made on the BeatDeck/computer document * Subjective Subjective Admission EGA: Weeks: 35 EGA at delivery (wks/days): 35 2/7 wks Status/Day: post , post operative Patient reports: Patient reports: No no complaints Nursing reports: Nursing reports: No complaints Objective Nursing Documentation Review Nursing Data: The data set between the solid lines has been im ported from nursing documentation. Any exceptions have been noted be low under Provider comments. Feeding preference: Post hemorrhage risk score: Medium Risk f or Hemorrhage. Provider comments on imported nursing data: [] General VS: Vital Signs: Date Time Temp Pulse Resp B/P B/P Pulse O2 O2 F low FiO2 Mean Ox Delivery Rate 05/15 2333 97.7 71 18 105/67 05/15 1958 97.9 66 18 105/63 05/15 1628 98.3 83 18 149/95 05/15 1146 98.3 61 18 104/65 PATIENT WEIGHT: Weight (lb): 226 Weight (oz): 6.64 Weight (kg): 102.700 Physical Exam Cardiac: normal sinus rhythm Lungs: clear to auscultation Neuro: Exam: alert, oriented x3, normal speech Abdomen: soft, no abnormal tenderness, no guardi ng, no rebound tenderness, normoactive bowel sounds Incision site: well approximated edges, dry, no drainage, no inflammation Result Findings/Data: Laboratory Tests: 05/15 0852 Hematology WBC (6.5 - 12.3 K/mm3) 18.6 H RBC (3.51 - 4.69 M/mm3) 3.18 L Hgb (10.1 - 13.8 g/dL) 9.2 L Hct (32.5 - 41.8 %) 28.3 L MCV (84.6 - 96.6 fL) 89.0 MCH (27.3 - 33.9 pg) 28.9 MCHC (32.0 - 34.2 gm/dL) 32.5 RDW (12.2 - 16.3 %) 12.8 Plt Count (134 - 363 K/mm3) 271 MPV (9.2 - 12.7 fL) 10.8 Neut % (Auto) (57.9 - 77.3 %) 78.1 H Lymph % (Auto) (14.5 - 29.7 %) 10.8 L Po[place]ett % (Auto) (3.6 - 10.2 %) 9.1 Eos % (Auto) (0.0 - 3.0 %) 0.0 Baso % (Auto) (0.1 - 0.9 %) 0.3 Neut # (Auto) (K/mm3) 14.6 Lymph # (Auto) (K/mm3) 2.0 Po[place]ett # (Auto) (K/mm3) 1.7 Eos # (Auto) (K/mm3) 0 Baso # (Auto) (K/mm3) 0.1 Diagnosis, Assessment Plan Diagnosis, Assessment Plan Assessment: nml progress Plan: routine care Electronically Signed by Abel Mcgovern MD on 04/22 04/12 at 0828 RPT #:[id number] END OF REPORT 2022-05-15 [facility] 11:05:00-00:00 [facility] OB Postpart Progr Note REPORT#:[id number] REPORT STATUS: Signed DATE:05/15/22 TIME: 1105 PATIENT: SHARYN RUSSELL UNIT #: [id number] ROOM/BED: [address] : [birth year] AGE: 31 SEX: F ATTEND: Rafael Mcgovern MD ADM AUTHOR: Abel Mcgovern MD * ALL edits or amendments must be made on the BeatDeck/computer document * Subjective Subjective Admission EGA: Weeks: 35 EGA at delivery (wks/days): 35 2/7 wks Status/Day: post , post operative Patient reports: Patient reports: No no complaints Nursing reports: Nursing reports: No complaints Objective Nursing Documentation Review Nursing Data: The data set between the solid lines has been im ported from nursing documentation. Any exceptions have been noted be low under Provider comments. Feeding preference: Post hemorrhage risk score: Medium Risk f or Hemorrhage. Provider comments on imported nursing data: [] General VS: Vital Signs: Date Time Temp Pulse Resp B/P B/P Pulse O2 O2 F low FiO2 Mean Ox Delivery Rate 05/15 0415 98.4 62 18 104/59 97 05/15 0100 77.0 05/15 0100 73 26 110/56 99 05/15 0045 77.0 05/15 0045 69 16 108/60 98 05/15 0030 76.0 05/15 0030 62 22 105/57 97 05/15 0015 98.3 05/15 0015 75.0 05/15 0015 70 22 104/56 98 / 0000 75.0 05/15 0000 65 22 100/58 98 05/14 2345 77.0 05/14 2345 72 25 103/59 100 05/14 2330 76.0 05/14 2330 69 23 106/58 100 05/14 2315 77.0 05/14 2315 72 20 106/61 100 05/14 2301 82.0 05/14 2301 112/60 05/14 2300 77 28 100 05/14 2245 81.0 05/14 2245 76 18 112/57 100 05/14 2234 75.0 05/14 2234 82 22 114/56 100 05/14 2230 88 100 05/14 2215 98.2 05/14 2215 73.0 05/14 2215 76 18 102/59 100 05/14 1859 117 99 05/14 1854 104 99 05/14 1849 95 98 05/14 1756 79.0 05/14 1756 103 116/57 98 PATIENT WEIGHT: Weight (lb): 226 Weight (oz): 6.64 Weight (kg): 102.700 Physical Exam Cardiac: normal sinus rhythm Lungs: clear to auscultation Neuro: Exam: alert, oriented x3, normal speech Abdomen: soft, no abnormal tenderness, no guardi ng, no rebound tenderness, normoactive bowel sounds Result Findings/Data: Laboratory Tests: 05/15 05/14 0852 1935 Chemistry Sodium (135 - 145 mEq/L) 138 Potassium (3.5 - 5.0 mEq/L) 3.8 Chloride (100 - 115 mEq/L) 105 Carbon Dioxide (22 - 31 mEq/L) 21 L Anion Gap (10 - 20) 15.70 BUN (7 - 18 mg/dL) 7 Creatinine (0.5 - 1.0 mg/dL) 0.6 Glomerular Filtr Rate (>60 ml/min) 118 Glucose (65 - 110 mg/dL) 121 H Calcium (8.4 - 10.2 mg/dL) 7.7 L Total Bilirubin (0.2 - 1.0 mg/dL) 0.2 AST (15 - 37 units/L) 11 L ALT (12 - 78 units/L) 12 Total Alk Phosphatase (46 - 116 units/L) 129 H Total Protein (6.3 - 8.2 gm/dL) 5.9 L Albumin (3.4 - 4.8 gm/dL) 2.6 L Hematology WBC (6.5 - 12.3 K/mm3) 18.6 H 14.0 H RBC (3.51 - 4.69 M/mm3) 3.18 L 3.33 L Hgb (10.1 - 13.8 g/dL) 9.2 L 9.6 L Hct (32.5 - 41.8 %) 28.3 L 29.8 L MCV (84.6 - 96.6 fL) 89.0 89.5 MCH (27.3 - 33.9 pg) 28.9 28.8 MCHC (32.0 - 34.2 gm/dL) 32.5 32.2 RDW (12.2 - 16.3 %) 12.8 12.8 Plt Count (134 - 363 K/mm3) 271 282 MPV (9.2 - 12.7 fL) 10.8 10.7 Neut % (Auto) (57.9 - 77.3 %) 78.1 H 67.0 Lymph % (Auto) (14.5 - 29.7 %) 10.8 L 16.7 Poinsett % (Auto) (3.6 - 10.2 %) 9.1 12.0 H Eos % (Auto) (0.0 - 3.0 %) 0.0 0.2 Baso % (Auto) (0.1 - 0.9 %) 0.3 0.5 Neut # (Auto) (K/mm3) 14.6 9.4 Lymph # (Auto) (K/mm3) 2.0 2.3 Po[place]ett # (Auto) (K/mm3) 1.7 1.7 Eos # (Auto) (K/mm3) 0 0.03 Baso # (Auto) (K/mm3) 0.1 0.1 Serology Treponema pallidum Ab (NONREACTIVE) NONREACTIVE Hep Bs Antigen (NONREACTIVE) NONREACTIVE Hepatitis C Antibody (NONREACTIVE) NONREACTIVE Hep C Ab Signal/Cutoff (<0.80) 0.04 Diagnosis, Assessment Plan Diagnosis, Assessment Plan Assessment: nml progress Plan: routine care Electronically Signed by Abel Mcgovern MD on 04/22 03/12 at 1106 [facility] #:[id number] END OF REPORT 2022-05-14 [id number] [facility] 22:45:00-00:00 [address] [place], [place] [address] PATIENT NAME: SHARYN RUSSELL ADMIT DATE: 04/22 12/13 ACCOUNT NO: [id number] ROOM NO: [facility] AGE: 31 SEX: F ADMITTING PHYSICIAN: Abel Mcgovern MD ATTENDING PHYSICIAN: Abel Mcgovern MD OPERATION DATE: 05/14/2022 PREOPERATIVE DIAGNOSES: 1. A 35 weeks and 2 days' gestation. 2. Two previous sections. 3. labor. POSTOPERATIVE DIAGNOSES: 1. A 35 weeks and 2 days' gestation. 2. Two previous sections. 3. labor. PROCEDURE PERFORMED: Repeat low transverse akua efrain section. SURGEON: Abel Mcgovern MD. TRUCK FARMER: Luci Ordaz, an pediatric physical therapy assistant is needed since section is a complicated procedure requiring 2-person opera tion. ANESTHESIA: Spinal epidural by Dr. Burrows. ESTIMATED BLOOD LOSS: 600 mL. COMPLICATIONS: None. FINDINGS: Viable male infant in vertex presentation with nuchal cord x1, loose, reduced. weight 2200 grams. Apgars not ass igned by the manjeet yet. Normal uterus, ovaries, and fallopian tubes. The previo us has a window. DESCRIPTION OF THE PROCEDURE: The patien t has been in labor and having low back pain. Due to the patient's habitus, her contraction was not picked until today. She was jeremias every 6 minutes . Therefore, she was taken to OR where spinal and epidural anesthesia was plac ed. The patient was placed on the operating table in left tilt position. Adequ ate level of anesthesia was confirmed. Abdomen was prepped and draped in the usual sterile fashion. A Pfannenstiel skin incision was performed with sc alpel over the old scar. Abdomen was entered in the usual fashion without difficulty. Bladder was retracted with bladder blade. Low transverse bishop paiute rine incision was performed with scalpel. Clear amniotic fluid was noted. Op erator's right hand reached over baby's head and pediatric physical therapy assistant applied fundal pr essure, baby was easily delivered. Nose and mouth were suctioned. Cord w as doubly clamped and cut between clamps. Baby was passed to the neonatolo gy team. Cord blood was obtained. Placenta manually extracted. Uterus wa s cleaned and remained in the PATIENT NAME: SHARYN RUSSELL [id number] abdominal cavity. The uterine incision was repai red with #1 chromic in running-locking fashion. Hemostasis was achieved with additional ioekrx-ya-jdexo suture. Abdo men was cleaned with some moist lap, hemostasis was observed. The peritoneum was approximated with 0 Vicryl in simple running fashion. Rectus abdominal muscle was reapproxima dasha with 0 Vicryl in simple running fashion. The operative field was irrigat ed copiously, irrigant aspirated. Hemostasis was observed. The fascia w as reapproximated with #1 Vicryl in simple running fashion. Subcutaneous s pace was cleaned with moist lap, hemostasis was achieved with Bovie. Subcuta neous fat was reapproximated with 2-0 plain gut. Skin was reapproximated with 3-0 Monocryl in subcuticular stitch. Dermabond was used to seal the skin. Aft erward, the patient was transferred to recovery in s table condition. All instrument and lap counts were correct x3. Dictated By: Abel Mcgovern MD WT: OP:FLIZBETH/TERELL/ERVIN Conf#: [id number]#: [id number] Authenticated by Abel Mcgovern MD On 05/15/2022 0 8:57:46 PM Electronically Signed by Abel Mcgovern MD on at 0857 PATIENT NAME: SHARYN RUSSELL [id number] 2022-05-14 [facility] 22:38:00-00:00 [facility] OB Delivery Note REPORT#:[id number] REPORT STATUS: Signed DATE:05/14/22 TIME: 2237 PATIENT: SHARYN RUSSELL UNIT #: [id number] ROOM/BED: [address] : [birth year] AGE: 31 SEX: F ATTEND: Rafael Mcgovern MD ADM AUTHOR: Abel Mcgovern MD * ALL edits or amendments must be made on the el ectronic/computer document * OB Delivery Nursing Documentation Review Nursing data: The data set between the solid lines has been im ported from nursing documentation. Any exceptions have been noted be low under Provider comments. _ ROM date: 05/14/22 ROM time: 2124 Membranes rupture method: AROM Amniotic fluid color: Clear Amniotic fluid amount: Steroids prior to arrival: Antibiotic prophylaxis given: Post hemorrhage risk score: Medium Risk f or Hemorrhage. Delivery date A: 05/14/22 Delivery time infant A: 2125 Birthweight (gm) infant A: 2200 Weight (lb) A: Weight (oz) A: Gender infant A: Male 1 minute A: 5 minutes A: 10 minutes infant A: Cord pH obtained infant A: Vacuum time infant A: Vacuum # pulls infant A: Vacuum # popoffs A: QBL at delivery: __ Provider comments on imported nursing data: [] Pre-delivery GBS status: GBS status: unknown Bassett evaluation at delivery: PRODUCT DEVELOPMENT INTERN Admission EGA: Weeks: 35 EGA at delivery (wks/days): 35 2/7 wks Blood Loss/Details Blood loss at delivery: 600 mL Baby A Information Baby A information Delivery date: 05/14/22 Delivery time: 2125 status: live born Wt of baby (grams): 2200 Gender: male ABG details Baby A Cord blood gases: not collected Nuchal cord Baby A Nuchal cord: yes (loose and reduced) Anomalies: none Delivery Delivery section indication: previous Priority: indicated (add on) Decision to incision time: greater than 30 mins Antibiotic prior to incision: 1 dose )(SCDs applied activated: Yes Uterine incision: low transverse Uterine scar: incidental window Consent: indication discussed, questions answer ed, pt consent to op delivery Mother's condition: mother stable 's condition: stable in nursery Electronically Signed by Abel Mcgovern MD on 04/22 02/10 at 2241 RPT #:[id number] END OF REPORT 2022-05-14 [facility] 11:56:00-00:00 [facility] OB Antepartum Prog Note REPORT#:[id number] REPORT STATUS: Signed DATE:05/14/22 TIME: 1156 PATIENT: SHARYN RUSSELL UNIT #: [id number] ROOM/BED: [address] : 92 AGE: 31 SEX: F ATTEND: Rafael Mcgovern MD ADM AUTHOR: Abel Mcgovern MD * ALL edits or amendments must be made on the el ectronic/computer document * Subjective Subjective Admission EGA: Weeks: 35 Comments: Pt is 35 2/7 wks today. She c/o constant LBP nico pite of Morphine. I suspected she has back labor plus her habitus making her c ontraction harder to be registered. I reviewed her NST in the past two d ays. She did some occasional small contractions. These contarction ap peared small on the electronic monitor strip but it may be signific ant for her habitus. So I tested one theory, I gave her Magnesium sulfate for 12 hours. She indeed felt much less lowerr back pain. Today I started her on Procardia 60 mg XL po qd Objective Nursing Documentation Review Nursing data: The data set between the solid lines has been im ported from nursing documentation. Any exceptions have been noted be low under Provider comments. ROM date: ROM time: Labor onset date: Labor onset time: Provider comments on imported nursing data: [] VS: Last Documented: Result Date Time B/P Mean 88.0 05/14 07 Pulse Ox 98 05/14 0745 B/P 125/67 05/14 07 Temp 98.3 05/14 0745 Pulse 96 05/14 0745 Resp 18 05/14 0745 Vital Signs Date Temp Pulse Resp B/P B/P Mean Pulse Ox FiO2 05/13-05/14 98.3-99.0 75-111 18 105-125/51-67 7 2.0-88.0 96-98 PATIENT WEIGHT: Weight (lb): 226 Weight (oz): 6.64 Weight (kg): 102.700 Membranes: Intact Uterine activity: Monitor: toco Frequency (description): occasional Frequency (minutes): 8 Duration (seconds): 15 Intensity: moderate Resting tone: relaxed Tachysystole: No HEENT: normocephalic w/o injury Cardiac: regular rate and rhythm Lungs: clear to auscultation, no rales, no rhonc hi, unlabored breathing Neuro: Exam: alert, oriented x3, normal speech Abdomen: gravid, soft, no abnormal tenderness, n o guarding, no rebound tenderness, normoactive bowel sounds Lower extremities: Edema: none Baby A: Baby A baseline: 125 bpm Baby A variability: marked > 25 bpm Baby A accelerations: 15 X 15 Baby A decelerations: none Baby A FHR category: category 1 Findings/data: Laboratory Tests: 05/13 1520 Other Body Source Membranes Rupture NON-RUPTURED Diagnosis, Assessment Plan Diagnosis, Assessment Plan Assessment: threatened prete rm labor, Pt had two section last one just one year ago. Due to her habitus ctx many not be easily monitored. She c/o cramping every two minutes. My initial impression is she is stressed due to lack of sleep, that makes her cramp more. So I gave h er Ambien, Phenerga 25 mg q 6 hrs w/o improvement. So now I have to give her M agnesium in case she has nonmonitorable ctx. Plan: If [place] makes her lower back pain decreases, will d/c home with it. If not helpful, consider delivery tomorrow Electronically Signed by Abel Mcgovern MD on 04/22 02/10 at 1202 RPT #:[id number] END OF REPORT 2022-05-13 [facility] 22:39:00-00:00 [facility]) OB Antepartum Prog Note REPORT#:[id number] REPORT STATUS: Signed DATE:05/13/22 TIME: 2238 PATIENT: SHARYN RUSSELL UNIT #: [id number] ROOM/BED: [address] : 92 AGE: 31 SEX: F ATTEND: Rafael Mcgovern MD ADM AUTHOR: Abel Mcgovern MD * ALL edits or amendments must be made on the el ectronic/computer document * Subjective Subjective Admission EGA: Weeks: 35 Comments: Pt c/o headache, lower back cramps keeping her up. Nausea and vomiting (she had 2+ ketonuria yesterday) Objective Nursing Documentation Review Nursing data: The data set between the solid lines has been im ported from nursing documentation. Any exceptions have been noted be low under Provider comments. ROM date: ROM time: Labor onset date: Labor onset time: Provider comments on imported nursing data: [] VS: Last Documented: Result Date Time B/P Mean 79.0 05/13 1929 B/P 117/60 05/13 1929 Pulse 99 05/13 1929 Pulse Ox 98 05/13 1928 Temp 99.0 05/13 1525 Resp 18 05/12 2213 Vital Signs Date Temp Pulse Resp B/P B/P Mean Pulse Ox FiO2 05/13 99.0 75-101 105-117/56-62 76.0-82.0 96-9 8 PATIENT WEIGHT: Weight (lb): 226 Weight (oz): 6.64 Weight (kg): 102.700 Membranes: Intact Uterine activity: Monitor: toco Frequency (description): irritability HEENT: normocephalic w/o injury Cardiac: regular rate and rhythm Lungs: clear to auscultation, no rales, no rhonc hi, unlabored breathing Neuro: Exam: alert, oriented x3, normal speech Abdomen: gravid, soft, no abnormal tenderness, n o guarding, no rebound tenderness, normoactive bowel sounds Lower extremities: Edema: none Baby A: Baby A baseline: 125 bpm Baby A variability: marked > 25 bpm Baby A accelerations: 15 X 15 Baby A decelerations: none Baby A FHR category: category 1 Findings/data: Laboratory Tests: 05/13 1520 Other Body Source Membranes Rupture NON-RUPTURED Diagnosis, Assessment Plan Diagnosis, Assessment Plan Assessment: threatened prete rm labor, Pt had two section last one just one year ago. Due to her habitus ctx many not be easily monitored. She c/o cramping every two minutes. My initial impression is she is stressed due to lack of sleep, that makes her cramp more. So I gave h er Ambien, Phenerga 25 mg q 6 hrs w/o improvement. So now I have to give her M agnesium in case she has nonmonitorable ctx. Plan: Finished Celestone series. Start Magnesium . Gave her IVF for ketonuria Electronically Signed by Abel Mcgovern MD on 04/22 01/10 at 2244 RPT #:[id number] END OF REPORT 2022-05-12 [facility] 22:36:00-00:00 [facility] ([facility]) OB Admission / H P REPORT#:[id number] REPORT STATUS: Signed DATE:05/12/22 TIME: 2235 PATIENT: SHARYN RUSSELL UNIT #: [id number] ROOM/BED: [address] : 92 AGE: 31 SEX: F ATTEND: Rafael Mcgovern MD ADM AUTHOR: Abel Mcgovern MD * ALL edits or amendments must be made on the el ectronic/computer document * OB History Nursing Documentation Review Nursing data: The data set between the solid lines has been im ported from nursing documentation. Any exceptions have been noted be low under Provider comments. Current data Steroids prior to arrival: ROM date: ROM time: EDC date: 06/16/22 Gestational age (labor triage): Post hemorrhage risk score: Medium Risk f or Hemorrhage. Prior history : 4 Para: 2 Term: : Abortions spontaneous: Abortions induced: Living children: Ectopic: Stillbirths: Live births: deaths: Number of previous C/S: Reported maternal labs/data Blood type: Unknown Rh type: Rubella: Hepatitis B: HIV exposure test: Unknown VDRL: Group B beta strep: Not done Rho(D) immune globulin this preg: Monitor mode - UA: Feeding preference: Provider comments on imported nursing data: [] Chief complaint: uterine contractions, nausea an d vomiting HPI: Pt is a 31 y/o WF at 35 weeks c/o a few days' h/o N/V. Now she has abdominal cramps. She denies VB, ROM, WEBSTER, scotom mil, RUQP, EP. Shew had her second C/S on 05/06/2021. She c/o pain over the u terine scar area history: : 4 Term: 2 Living children: 2 Previous : low uterine trans incis Number of prev : 2 Current : Best EDC: 06/16/22 Admission EGA (weeks) 35 Labs: Blood type: O Rh: positive Rubella: immune Hepatitis B: negative HIV: negative STD: negative Syphilis: currently negative GBS: unknown Past History Past Medical History: Denies: Alcoholism/subst abu se, Anemia, Arthritis, Asthma, Atrial fibrillation, Cancer, Congestive heart failure, COPD, Coronary artery disease, Dementia, Depression/mood disorder, Diabetes mellitus, WYATT D/gastritis, Hypertension, Kidney disease/stones, Seizu re disorder, Transient ischemic attack, , Abdominal aortic aneurysm, ADD/AD HD, AIDS, Angina pectoris, Anticoagulant therapy, Atrial flutter, B leeding disorder, BPH, C diff colitis, Cardiac dysrhythmias, Chronic pain, Cirrhosis, C ongenital anomalies, Dyslipidemia, Gallbladder dis/stones, GI bleed, Glaucoma, Headache disorder, Hepatitis, HIV, Intracranial hemorrhage, Ischemi c stroke, Motor dysfunction, Pancreatitis, Peptic ulcer disease, Periph arter ial disease, Pressure ulcer, Prior NH, Schizophrenia, Sickle cell disease, St eroid use, Thyroid disorder, Transfusion history, Tuberculosis, Urinary tract infection, Venous thromboembolism. Past Surgical History: Reports: . Denies: Abdominal surgery, Appendectomy, Bariatric procedure, CABG, Carotid endarterectomy, Cholecy stectomy, Dialysis shunt/AV fistula, Heart valve procedure, Hernia repair, H ysterectomy, Pacemaker, Spine surgery, Splenectomy, Tonsil lectomy, Transplant recipient, Vascular procedure, = , Am putation, Anesthesia complications, Bilateral tubal ligation, Bladder surgery, Breast biopsy/procedu re, Carpal tunnel release, Cranial procedure, D C, Eye surgery, Feeding tub e, Hip procedure, ICD, Indwelling IV catheter, Knee procedure, Lithotripsy, Lung surgery, Nephrectomy, PCI, Prostate surgery, Thyroidectomy, Tracheotom y, FILLER SHREDDING 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 Alcohol Use Denies EtOH use Drug Use Denies recreational drugs Smoking status: Smoking status for patients 13 years old or old er: Unknown,if ever smoked Allergies: Coded Allergies: amoxicillin (From AUGMENTIN) (Intermediate, RASH 04/14/22) clavulanic acid (From AUGMENTIN) (Intermediate, RASH 04/14/22) Objective General VS: Last Documented: Result Date Time B/P Mean 78.0 05/12 1938 B/P 107/57 05/12 1938 Pulse 98 05/12 193 Pulse Ox 98 05/12 1611 Temp 98.3 05/12 0912 Resp 18 05/12 0912 Vital Signs Date Temp Pulse Resp B/P B/P Mean Pulse Ox FiO 2 05/12 98.3 75-98 18 107-137/57-75 78.0-96.0 98 PATIENT WEIGHT: Weight (lb): 226 Weight (oz): 6.64 Weight (kg): 102.700 Physical Exam HEENT: normocephalic w/o injury Cardiac: regular rate and rhythm Lungs: clear to auscultation, no rales, no rhonc hi, unlabored breathing Breasts: deferred Neuro: Exam: alert, oriented x3, normal speech Abdomen: gravid, soft, no abnormal tenderness, n o guarding, no rebound tenderness, normoactive bowel sounds Musculoskeletal: normal inspection Genitourinary: no bladder distention Uterine activity: Monitor: toco Frequency (description): irritability Pelvic exam: Pelvis clinically adequate: yes Vulvar lesions: none Membranes: Membranes: Intact Lower extremities: Edema: none Baby A: Baby A baseline: 125 bpm Baby A variability: marked > 25 bpm Baby A accelerations: 15 X 15 Baby A decelerations: none Baby A FHR category: category 1 Results Findings/Data: Laboratory Tests: 05/12 05/12 1005 0922 Serology SARS-CoV-2 Ag (Rapid) (NEGATIVE) NEGATIVE Urines Urine Color (YELLOW) YELLOW Urine Appearance (CLEAR) Slightly-Cloudy Urine pH (5 - 9) 6.0 Ur Specific Adrian (1.001 - 1.035) 1.019 Urine Protein (NEG) NEGATIVE Urine Glucose (UA) (NEG) NEGATIVE Urine Ketones (NEG) 2+ H Urine Blood (NEG) NEG Urine Nitrite (NEG) NEG Urine Bilirubin (NEG) NEGATIVE Urine Urobilinogen (NEG mg/dL) NEGATIVE Ur Leukocyte Esterase (NEG) NEG Urine RBC (NONE SEEN #/hpf) 0-2 Urine WBC (NONE SEEN #/hpf) 0-2 Ur Epithelial Cells (RARE - FEW #/HPF) FEW Urine Bacteria (RARE - FEW /HPF) RARE Urine Mucus (NONE SEEN) RARE Diagnosis, Assessment Plan Diagnosis, Assessment Plan Assessment/Impression: vomiting, dehydration ket onuria Plan: antiemetics, IVF, betamethasone admin Electronically Signed by Abel Mcgovern MD on 04/22 12/13 at 2252 RPT #:[id number] END OF REPORT 2022-04-14 [facility] 22:41:00-00:00 [facility] ([facility]) [facility] Evaluation Note REPORT#:[id number] REPORT STATUS: Signed DATE:04/14/22 TIME: 224 PATIENT: SHARYN RUSSELL UNIT #: [id number] ROOM/BED: : 92 AGE: 31 SEX: F ATTEND: Rafael Mcgovern MD ADM DT: AUTHOR: Abel Mcgovern MD * ALL edits or amendments must be made on the el [employer]/computer document * See Addendum [facility] History Nursing Documentation Review Nursing data: The data set between the solid lines has been im ported from nursing documentation. Any exceptions have been noted be low under Provider comments. Current data Steroids prior to arrival: ROM date: ROM time: EDC date: 06/27/22 Gestational age (labor triage): Post hemorrhage risk score: Prior history : 4 Para: 2 Term: : Abortions spontaneous: Abortions induced: Living children: Ectopic: Stillbirths: Live births: deaths: Number of previous C/S: Reported maternal labs/data Blood type: Rh type: Rubella: Hepatitis B: HIV exposure test: Unknown VDRL: Group B beta strep: Rho(D) immune globulin this preg: Monitor mode - UA: Feeding preference: Provider comments on imported nursing data: [] Chief complaint: suspected ruptured memb , decreased movement, discomfort HPI: Pt is a 31 y/o WF at 29 3/7 wks c/o acute onset of leaking large amount amniotic fluid. She c/o decr eased movement. She also c/o feeling warm.She denies ctx, VB, WEBSTER, scotomata, RUQP, EP history: : 5 Term: 2 Abortus: 2 Living children: 2 Previous : low uterine trans incis Number of prev : 2 Current : EDC: 06/27/22 EGA (weeks/days): 29 3/7 WKS Labs: Blood type: O Rh: positive Rubella: immune Hepatitis B: negative HIV: negative RPR: non-reactive STD: negative GBS: unknown Past medical history: denies PMH Past surgical history: Social history: employed, , no al cohol use, no tobacco use, no drug use Allergies Coded Allergies: amoxicillin (From AUGMENTIN) (Intermediate, RASH 04/14/22) clavulanic acid (From AUGMENTIN) (Intermediate, RASH 04/14/22) Review of Systems Constitutional: Denies: chills, fatigue, fever. Respiratory: Denies: MARTINS (dyspnea on exertion), hemoptysis, n on productive cough. Cardiovascular: Denies: chest pain, MARTINS (dyspnea on exertion), e alonzo. GI: Reports: constipation. Denies: diarrhea, nausea, vomiting. : Reports: . Denies: pelvic pain, vaginal bleeding. Objective General VS: Last Documented: Result Date Time B/P Mean 92.0 04/14 1644 B/P 121/72 04/14 1644 Pulse 83 04/14 1644 Vital Signs Date Temp Pulse Resp B/P B/P Mean Pulse Ox FiO2 04/14 83 121/72 92.0 PATIENT WEIGHT: Weight (lb): 220 Weight (oz): 7.4 Weight (kg): 100.000 Physical Exam HEENT: normocephalic w/o injury Cardiac: regular rate and rhythm Lungs: clear to auscultation Breasts: deferred Neuro: Exam: alert, oriented x3, normal speech Abdomen: gravid, soft, no abnormal tenderness, n o guarding, no rebound tenderness, normoactive bowel sounds Musculoskeletal: normal inspection Genitourinary: no bladder distention Uterine activity: Monitor: toco Frequency (description): irritability FHR evaluation: Baseline: 130 bpm Variability: marked > 25 bpm Accelerations: 15 X 15 Decelerations: none FHR category: category 1 Membranes: Membranes: status undetermined Lower extremities: Edema: none Results Findings/Data: Laboratory Tests: 04/14 1645 Other Body Source Membranes Rupture NON-RUPTURED Serology SARS-CoV-2 Ag (Rapid) (NEGATIVE) NEGATIVE Diagnosis, Assessment Plan Diagnosis, Assessment Plan Assessment/Impression: symptoms of PROM but test ed negative, decreased movement but now reactive NST no decel, catagory I Plan: discharge home Electronically Signed by Abel Mcgovern MD on 03/23 03/12 at 1016 Addendum 1: 05/06/22 2241 by Abel Mcgovern MD NST time is 3 hours Electronically Signed by Abel Mcgovern MD on 04/21 04/12 at 2241 RPT #:[id number] END OF REPORT 2022-04-06 [facility] 08:44:00-00:00 [facility] ([facility]) [facility] Evaluation Note REPORT#:[id number] REPORT STATUS: Signed DATE:04/06/22 TIME: 843 PATIENT: SHARYN RUSSELL UNIT #: [id number] ROOM/BED: : 92 AGE: 31 SEX: F ATTEND: Rafael Mcgovern MD ADM DT: AUTHOR: Abel Mcgovern MD * ALL edits or amendments must be made on the el ectronic/computer document * [facility] History Nursing Documentation Review Nursing data: The data set between the solid lines has been im ported from nursing documentation. Any exceptions have been noted be low under Provider comments. Current data Steroids prior to arrival: ROM date: ROM time: EDC date: Gestational age (labor triage): Post hemorrhage risk score: Prior history : Para: Term: : Abortions spontaneous: Abortions induced: Living children: Ectopic: Stillbirths: Live births: deaths: Number of previous C/S: Reported maternal labs/data Blood type: Rh type: Rubella: Hepatitis B: HIV exposure test: VDRL: Group B beta strep: Rho(D) immune globulin this preg: Monitor mode - UA: Feeding preference: Provider comments on imported nursing data: [] Chief complaint: uterine contractions, discomfor t HPI: Pt is a 31 y/o LAF at 28 1/7 wks c/o epigastric pain radiating to back and bilateral lower back. Pa in is not related to greasy food. She denies VB, ROM , WEBSTER, scotomata history: : 5 Term: 2 Abortus: 2 Living children: 2 Previous : low uterine trans incis Number of prev : 2 Current : EDC: 06/27/22 EGA (weeks/days): 28 1/7 WKS Labs: Blood type: O Rh: positive Rubella: immune Hepatitis B: negative HIV: negative RPR: non-reactive STD: negative GBS: unknown Past medical history: denies PMH Past surgical history: Social history: employed, , no al cohol use, no tobacco use, no drug use Medications: Home Medications: Medication Dose/Rte/Freq Days Qty Entered Last Max Daily Dose Reviewed PNV WITH FE 1 TAB PO DAILY 04/01/21 FUMARATE/FA 1323 () Strength: 1 EACH TAB Current Hospital Medications: Central Nervous System Agents Sig/Aracelis Start time Last Medication Dose Route Stop Time Status Admin Hydrocodone Bitart/ 1 TAB ONCE 04/055 DC Acetaminophen PO 04/06 0100 2331 (NORCO 5/325 TABLET) Promethazine HCl 25 MG ONCE 04/05 2245 DC 04/05 (PROMETHAZINE HCL) PO 04/06 0100 2331 Allergies Coded Allergies: amoxicillin (From AUGMENTIN) (Intermediate, RASH 03/02/22) clavulanic acid (From AUGMENTIN) (Intermediate, RASH 03/02/22) Objective General VS: Last Documented: Result Date Time B/P Mean 70.0 04/055 B/P 87/63 04/05 2245 Pulse 83 04/05 2245 Vital Signs Date Temp Pulse Resp B/P B/P Mean Pulse Ox FiO2 04/05 75-90 70-101/42-63 50.0-74.0 PATIENT WEIGHT: Weight (lb): Weight (oz): Weight (kg): Physical Exam HEENT: normocephalic w/o injury Cardiac: regular rate and rhythm Lungs: clear to auscultation Breasts: deferred Neuro: Exam: alert, oriented x3, normal speech Abdomen: gravid, soft, no abnormal tenderness, n o guarding, no rebound tenderness, normoactive bowel sounds Musculoskeletal: normal inspection Genitourinary: no bladder distention Uterine activity: Monitor: toco Frequency (description): none Pelvic exam: Pelvis clinically adequate: yes Vulvar lesions: none Vagina: normal Uterus size in weeks: 28 Exam: soft Cervical/ exam: Dilatation (cm): 0 - closed Effacement (%): 0 station: - 3 presentation: unable to assess FHR evaluation: Baseline: 140 bpm Variability: marked > 25 bpm Accelerations: 15 X 15 Decelerations: none FHR category: category 1 Membranes: Membranes: Intact Lower extremities: Edema: none Diagnosis, Assessment Plan Diagnosis, Assessment Plan Assessment/Impression: MUSCULOSKELETAL PAIN Plan: discharge home, tried sedaqtion with Nocor -5 and phenergan 25 po. She slept for a while and pain is gone Electronically Signed by Abel Mcgovern MD on 03/22 04/12 at 0855 [facility] #:[id number] END OF REPORT 2022-03-02 [facility] 23:39:00-00:00 [facility] ([facility] Evaluation Note REPORT#:[id number] REPORT STATUS: Signed DATE:03/02/22 TIME: 233 PATIENT: SHARYN RUSSELL UNIT #: [id number] ROOM/BED: : 92 AGE: 31 SEX: F ATTEND: Rafael Mcgovern MD ADM DT: AUTHOR: Abel Mcgovern MD * ALL edits or amendments must be made on the el ectronic/computer document * [facility] History Nursing Documentation Review Nursing data: The data set between the solid lines has been im ported from nursing documentation. Any exceptions have been noted be low under Provider comments. Current data Steroids prior to arrival: ROM date: ROM time: EDC date: 06/27/22 Gestational age (labor triage): Post hemorrhage risk score: Prior history : 4 Para: 2 Term: : Abortions spontaneous: Abortions induced: Living children: Ectopic: Stillbirths: Live births: deaths: Number of previous C/S: Reported maternal labs/data Blood type: Rh type: Rubella: Hepatitis B: HIV exposure test: VDRL: Group B beta strep: Rho(D) immune globulin this preg: Monitor mode - UA: Feeding preference: Provider comments on imported nursing data: [] Chief complaint: uterine contractions, discomfor t HPI: Pt is a 31 y/o WF at 23 2/7 wks c/o acut e onset painful contraction since 1 hour before arrival at [facility]. She denies VB, ROM, WEBSTER, scotomata, RUQP, EP. She admiited her 2 y/o daughter has stumble on h er abdomin 2 days ago. In the last few nights her 10-months old baby h as kept her up 5 times at night so she did not get good sleeo. She deneis unprotected s ex, any infection sign history: : 5 Term: 2 Abortus: 2 Living children: 2 Previous : low uterine trans incis Current : EDC: 06/27/22 EGA (weeks/days): 35 weeks (23 2/7 ws), 23 2/7 wks Labs: Blood type: O Rh: positive Rubella: immune Hepatitis B: negative HIV: negative RPR: non-reactive STD: negative GBS: unknown Past medical history: denies PMH Past surgical history: Social history: employed, , no al cohol use, no tobacco use, no drug use Allergies Coded Allergies: amoxicillin (From AUGMENTIN) (Intermediate, RASH 03/02/22) clavulanic acid (From AUGMENTIN) (Intermediate, RASH 03/02/22) Review of Systems Constitutional: Denies: chills, fatigue, fever. Respiratory: Denies: MARTINS (dyspnea on exertion), hemoptysis, n on productive cough. Cardiovascular: Denies: chest pain, MARTINS (dyspnea on exertion), e alonzo. GI: Reports: constipation. Denies: diarrhea, nausea, vomiting. : Reports: pelvic pain, . Denies: vaginal bleeding. Objective General VS: PATIENT WEIGHT: Weight (lb): 215 Weight (oz): 6.27 Weight (kg): 97.700 Physical Exam HEENT: normocephalic w/o injury Cardiac: regular rate and rhythm Lungs: clear to auscultation Breasts: deferred Neuro: Exam: alert, oriented x3, normal speech Abdomen: gravid, soft, no abnormal tenderness, n o guarding, no rebound tenderness, normoactive bowel sounds Musculoskeletal: normal inspection Genitourinary: no bladder distention Uterine activity: Monitor: toco Frequency (description): regular Frequency (minutes): 4 Duration (seconds): 45 Intensity: moderate Tachysystole: No Pelvic exam: Pelvis clinically adequate: yes FHR evaluation: Baseline: 130 bpm Variability: marked > 25 bpm Accelerations: 15 X 15 Decelerations: none FHR category: category 1 Membranes: Membranes: Intact Lower extremities: Edema: none Results Findings/Data: Laboratory Tests: 03/02 1405 Urines Urine Color (YELLOW) STRAW Urine Appearance (CLEAR) Slightly-Cloudy Urine pH (5 - 9) 7.0 Ur Specific Adrian (1.001 - 1.035) 1.006 Urine Protein (NEG) NEGATIVE Urine Glucose (UA) (NEG) NEGATIVE Urine Ketones (NEG) NEGATIVE Urine Blood (NEG) NEG Urine Nitrite (NEG) NEG Urine Bilirubin (NEG) NEGATIVE Urine Urobilinogen (NEG mg/dL) NEGATIVE Ur Leukocyte Esterase (NEG) NEG Urine RBC (NONE SEEN #/hpf) 0-2 Urine WBC (NONE SEEN #/hpf) 0-2 Ur Epithelial Cells (RARE - FEW #/HPF) FEW Urine Bacteria (RARE - FEW /HPF) FEW Urine Mucus (NONE SEEN) RARE Diagnosis, Assessment Plan Diagnosis, Assessment Plan Assessment/Impression: no evidence of labor Comments: Pt felt better after IV hydration and Morphine 4 mg IV and Phenergan 25 mg po Electronically Signed by Abel Mcgovern MD on 02/19 12/13 at 2349 RPT #:[id number] END OF REPORT 2021-05-08 [facility] 15:39:00-00:00 [facility] OB Disch REPORT#:[id number] REPORT STATUS: Signed DATE:05/08/21 TIME: 153 PATIENT: SHARYN RUSSELL UNIT #: [id number] ROOM/BED: 1997- : 92 AGE: 30 SEX: F ATTEND: Rafael Mcgovern MD ADM AUTHOR: Abel Mcgovern MD * ALL edits or amendments must be made on the [employer]/computer document * Subjective Subjective Admission EGA: Weeks: 38 Days: 0 EGA at delivery (wks/days): 38 weeks Status/day: post , post operative Patient reports: Patient reports: No: complaints. Nursing reports: Nursing reports: No: complaints. Objective General VS: Vital Signs Date Temp Pulse Resp B/P B/P Mean Pulse Ox FiO2 05/07-05/08 98.0-98.1 64-71 18 90-103/53-65 Last Documented: Result Date Time B/P 05/08 0715 Temp 98.0 05/08 0715 Pulse 71 05/08 0715 Resp 18 05/08 0715 Pulse Ox 99 05/07 0400 B/P Mean 89.0 05/06 1815 PATIENT WEIGHT: Weight (lb): Weight (oz): Weight (kg): 98.610804 Physical Exam Cardiac: normal rhythm Lungs: clear to auscultation Neuro: Exam: alert, oriented x3, normal speech Abdomen: post gravid, soft, no abnormal tenderne ss, no guarding, no rebound tenderness, normoactive bowel sounds Incision site: well approximated edges, dry, no drainage, no inflammation Lower extremities: Edema: none Results Findings/Data: Laboratory Tests: 05/07 05/06 0812 1621 Hematology WBC (6.5 - 12.3 K/mm3) 12.5 H RBC (3.51 - 4.69 M/mm3) 2.91 L Hgb (10.1 - 13.8 g/dL) 8.3 L Hct (32.5 - 41.8 %) 26.0 L MCV (84.6 - 96.6 fL) 89.3 MCH (27.3 - 33.9 pg) 28.5 MCHC (32.0 - 34.2 gm/dL) 31.9 L RDW (12.2 - 16.3 %) 12.3 Plt Count (134 - 363 K/mm3) 222 MPV (9.2 - 12.7 fL) 11.0 Neut % (Auto) (57.9 - 77.3 %) 75.3 Lymph % (Auto) (14.5 - 29.7 %) 18.7 [place] % (Auto) (3.6 - 10.2 %) 4.8 Eos % (Auto) (0.0 - 3.0 %) 0.2 Baso % (Auto) (0.1 - 0.9 %) 0.2 Neut # (Auto) (K/mm3) 9.4 Lymph # (Auto) (K/mm3) 2.3 [place] # (Auto) (K/mm3) 0.6 Eos # (Auto) (K/mm3) 0.03 Baso # (Auto) (K/mm3) 0.0 Other Body Source Membranes Rupture RUPTURED Discharge Summary General Assessment: nml progress, acute blood loss anemia, chronic anemia from Hospital course: repeat LTCS in labor, e pidural anesthesia, spinal anesthesia, nml postop/postpart care, ch ronic anemia from , acute blood loss anemia Discharge condition: stable Discharge to: Home/Self Care Baby A: status: live born Gender: female 1 minute: 8 5 minutes: 8 Anomalies: none Plan: routine care Discharge Instructions Instructions: specific instr as noted Diet: Regular Activity: As Tolerated Additional discharge routines: Attending Follow- Up Discharge meds: Continue taking these medications: FERROUS SULFATE (FEOSOL) 325 MG TAB 325 MILLIGRAM ORAL DAILY. PNV WITH FE FUMARATE/FA () 1 EACH TAB 1 TABLET ORAL DAILY. Start taking the following new medications: ACETAMINOPHEN/CODEINE (TYLENOL WITH CODEINE #3 3 00/30 MG) 300 MG-30 MG TAB 2 TABLET ORAL EVERY 6 HOURS NEEDED. as neede d for pain Qty = 30 No Refills IBUPROFEN (MOTRIN) 600 MG TAB 600 MILLIGRAM ORAL EVERY 6 HOURS. Qty = 60 No Refills Prescriptions: e-prescribe Add'l Follow-up Appointments Attending Physician: Attending Physician: Abel Mcgovern MD Attending physician follow up timeframe: In 1-2 weeks Electronically Signed by Abel Mcgovern MD on 04/21 06/11 at 1541 RPT #:[id number] END OF REPORT [facility] OB Postpart Progr Note REPORT#:[id number] REPORT STATUS: Signed DATE:05/07/21 TIME: 1334 PATIENT: SHARYN RUSSELL UNIT #: [id number] ROOM/BED: 1997 : 92 AGE: 30 SEX: F ATTEND: Rafael Mcgovern MD ADM AUTHOR: Abel Mcgovern MD * ALL edits or amendments must be made on the el ectronic/computer document * Subjective Subjective Admission EGA: Weeks: 38 Days: 0 EGA at delivery (wks/days): 38 weeks Status/Day: post , post operative Patient reports: Patient reports: No no complaints Nursing reports: Nursing reports: No complaints Objective Nursing Documentation Review Nursing Data: The data set between the solid lines has been im ported from nursing documentation. Any exceptions have been noted be low under Provider comments. Feeding preference: Post hemorrhage risk score: Medium Risk f or Hemorrhage. Provider comments on imported nursing data: [] Physical Exam Cardiac: normal sinus rhythm Lungs: clear to auscultation Neuro: Exam: alert, oriented x3, normal speech Abdomen: soft, no abnormal tenderness, no guardi ng, no rebound tenderness Incision site: well approximated edges, dry, no drainage, no inflammation Result Findings/Data: Laboratory Tests: 05/07 05/06 0812 1621 Hematology WBC (6.5 - 12.3 K/mm3) 12.5 H RBC (3.51 - 4.69 M/mm3) 2.91 L Hgb (10.1 - 13.8 g/dL) 8.3 L Hct (32.5 - 41.8 %) 26.0 L MCV (84.6 - 96.6 fL) 89.3 MCH (27.3 - 33.9 pg) 28.5 MCHC (32.0 - 34.2 gm/dL) 31.9 L RDW (12.2 - 16.3 %) 12.3 Plt Count (134 - 363 K/mm3) 222 MPV (9.2 - 12.7 fL) 11.0 Neut % (Auto) (57.9 - 77.3 %) 75.3 Lymph % (Auto) (14.5 - 29.7 %) 18.7 Poinsett % (Auto) (3.6 - 10.2 %) 4.8 Eos % (Auto) (0.0 - 3.0 %) 0.2 Baso % (Auto) (0.1 - 0.9 %) 0.2 Neut # (Auto) (K/mm3) 9.4 Lymph # (Auto) (K/mm3) 2.3 [place]ett # (Auto) (K/mm3) 0.6 Eos # (Auto) (K/mm3) 0.03 Baso # (Auto) (K/mm3) 0.0 Other Body Source Membranes Rupture RUPTURED Microbiology: Date/Time Procedure - Status Source Growth 05/06 1510 Placental Culture - RECD PLACENTA 05/06 1510 Anaerobic Culture - RECD PLACENTA 05/06 1510 Gram Stain - RECD PLACENTA 05/06 1510 Placental Culture - RECD PLACENTA 05/06 1510 Anaerobic Culture - RECD PLACENTA 05/06 1510 Gram Stain - RECD PLACENTA Diagnosis, Assessment Plan Diagnosis, Assessment Plan Assessment: nml progress, acute blood loss anemia, chronic anemia from Plan: routine care Electronically Signed by Abel Mcgovern MD on 04/21 05/11 at 1335 RPT #:[id number] END OF REPORT 2021-05-06 [id number] [facility] 16:07:00-00:00 [address] [place], [place] [address] PATIENT NAME: SHARYN RUSSELL ADMIT DATE: 04/21 04/11 ACCOUNT NO: [id number] ROOM NO: .1999 AGE: 30 SEX: F ADMITTING PHYSICIAN: Abel Mcgovenr MD ATTENDING PHYSICIAN: Abel Mcgovern MD OPERATION DATE: 05/06/2021 PREOPERATIVE DIAGNOSES: 1. A 38 weeks gestation. 2. Previous section. 3. Prolonged premature rupture of membra zaki. 4. Low-grade temperature. POSTOPERATIVE DIAGNOSES: 1. A 38 weeks gestation. 2. Previous section. 3. Prolonged premature rupture of membra zaki. 4. Low-grade temperature. PROCEDURES: Repeat low transverse secti on. SURGEON: Abel Mcgovern MD TRUCK FARMER: Dr. Presley Ortiz, an assist ant needed since section is a complicated procedure requiring 2 person operati on. ANESTHESIA: Spinal and epidural. ANESTHESIOLOGIST: Dr. Bolden. ESTIMATED BLOOD LOSS: 600 mL. All instrument and lap counts correct x3. FINDINGS: Viable female infant in vertex present ation with nuchal cord x1, loose, reduced. weight is 2940 grams. Apga rs 8 at 1 minute and 8 at 5 minutes. Normal uterus, ovaries, fallopian tubes . PROCEDURE IN DETAIL: The patient was taken to OR where spinal and epidural anesthesia was placed by Dr. Bolden. T he patient was placed on the operating table in left tilt position. Adequate level of a nesthesia was confirmed. Abdomen was prepped and draped in usual sterile fashion. A Pfannenstiel skin incision performed with a sc alpel. Abdomen was entered in usual fashion without difficulty. Bladder was retracted with a bladder blade. Low transverse uterine incision was performed with a scalpel. Clear amn iotic fluid was noted. Developmental Services Worker's right hand reached over baby's head a nd pediatric physical therapy assistant applied fundal pressure, baby was easily delivered. Nose and mo uth were suctioned. Cord was double clamped and cut between two clamps. Baby was passed to nurse. Cord blood was obtained. Placenta manually extracted. Uterus cleaned inside PATIENT NAME: SHARYN RUSSELL [id number] abdominal cavity. The uterine incision repaired with #1 chromic in running-locking fashion. Hemostasis was achieved with additional [id number] suture. Abdomen was cleaned with moist lap, hemostasis was observed. Peritoneum was approximated wi th 0 Vicryl in simple running fashion. Rectus abdominis muscle reap proximated with 0 Vicryl in simple running fashion. Fascia reapproximated with #1 Vicryl in simple r unning fashion. The subcutaneous space was cleaned with moist lap. H emostasis was achieved with Bovie. Subcutaneous fat was reapproximated with 2-0 plain gut. Skin was approximated with 3-0 Monocryl subcuticu lar stitch. Dermabond was used to seal the skin. Afterward, the patient was transferred to recovery room in stable condition. All instrument and lap counts correct x3. Dictated By: Abel Mcgovern MD WT: OP:F.SHANEL/TERELL/ERVIN Conf#: [id number]/DID#: [id number] Authenticated and Edited by Abel Mcgovern MD On 9:26:37 AM Electronically Signed by Abel Mcgovern MD on at 0929 PATIENT NAME: SHARYN RUSSELL [id number] 2021-05-06 [facility] 16:06:00-00:00 [facility] ([facility]) OB Delivery Note REPORT#:[id number] REPORT STATUS: Signed DATE:05/06/21 TIME: 1606 PATIENT: SHARYN RUSSELL UNIT #: [id number] ROOM/BED: [address] : 92 AGE: 30 SEX: F ATTEND: Rafael Mcgovern MD ADM AUTHOR: Abel Mcgovern MD * ALL edits or amendments must be made on the el ectronic/computer document * OB Delivery Nursing Documentation Review Nursing data: The data set between the solid lines has been im ported from nursing documentation. Any exceptions have been noted be low under Provider comments. _ ROM date: ROM time: Membranes rupture method: Amniotic fluid color: Amniotic fluid amount: Steroids prior to arrival: Antibiotic prophylaxis given: Yes Post hemorrhage risk score: Medium Risk f or Hemorrhage. Delivery date A: 05/06/21 Delivery time i nfant A: 1509 Birthweight (gm) infant A: 2940 Weight (lb) infant A: Weight (oz) A: Gender infant A: Female 1 minute infant A: 5 minutes infant A: 10 minutes infant A: Cord pH obtained A: Vacuum time infant A: Vacuum # pulls A: Vacuum # popoffs infant A: QBL at delivery: __ Provider comments on imported nursing data: [] Pre-delivery GBS status: GBS status: negative Bassett evaluation at delivery: PRODUCT DEVELOPMENT INTERN Admission EGA: Weeks: 37 Days: 6 EGA at delivery (wks/days): 37 6/7 weeks Baby A Information Baby A information Delivery date: 05/06/21 Delivery time: 1509 status: live born Wt of baby (grams): 2940 Gender: female 1 minute: 8 5 minutes: 8 Presentation: vertex Anomalies: none ABG details Baby A Cord blood gases: not collected Nuchal cord Baby A Nuchal cord: yes (loose and reduced) Anomalies: none Delivery section indication: previous , PPROM Priority: urgent Antibiotic prior to incision: 1 dose )(SCDs applied activated: Yes Uterine incision: low transverse Uterine scar: intact Consent: indication discussed, questions answer ed, pt consent to op delivery Mother's condition: mother stable Infant's condition: infant stable in room Blood Loss/Details Blood loss at delivery: 600 mL Electronically Signed by Abel Mcgovern MD on 04/21 04/11 at 1622 RPT #:[id number] END OF REPORT 2021-05-06 [facility] 14:04:00-00:00 [facility] ([facility]) OB Admission / H P REPORT#:[id number] REPORT STATUS: Signed DATE:05/06/21 TIME: 1404 PATIENT: SHARYN RUSSELL UNIT #: [id number] ROOM/BED: [facility] : 92 AGE: 30 SEX: F ATTEND: Rafael Mcgovern MD ADM AUTHOR: Abel Mcgovern MD * ALL edits or amendments must be made on the el ectronic/computer document * OB History Nursing Documentation Review Nursing data: The data set between the solid lines has been im ported from nursing documentation. Any exceptions have been noted be low under Provider comments. Current data Steroids prior to arrival: ROM date: ROM time: EDC date: 05/20/21 Gestational age (labor triage): Post hemorrhage risk score: Medium Risk f or Hemorrhage. Prior history : 3 Para: 1 Term: : Abortions spontaneous: Abortions induced: Living children: Ectopic: Stillbirths: Live births: deaths: Number of previous C/S: Reported maternal labs/data Blood type: Rh type: Rubella: Hepatitis B: HIV exposure test: VDRL: Group B beta strep: Rho(D) immune globulin this preg: Monitor mode - UA: Feeding preference: Provider comments on imported nursing data: [] Chief complaint: suspected ruptured memb HPI: Pt is a 30 y/o LAF at 37 6/7 weeks c/o l eaking fluid since yesterday morning. She denies VB, ctx, WEBSTER, scotomata, RUQP , EP history: : 3 Term: 1 Abortus: 1 Living children: 1 Previous : low uterine trans incis Current : Admission EGA (weeks) 38 Admission EGA (days) 0 Labs: Blood type: O Rh: positive Rubella: non-immune Hepatitis B: negative HIV: negative STD: negative Syphilis: currently negative GBS: negative Past History Past Medical History: Denies: Alcoholism/subst abu se, Anemia, Arthritis, Asthma, Atrial fibrillation, Cancer, Congestive heart failure, COPD, Coronary artery disease, Dementia, Depression/mood disorder, Diabetes mellitus, WYATT D/gastritis, Hypertension, Kidney disease/stones, Seizu re disorder, Transient ischemic attack, , Abdominal aortic aneurysm, ADD/AD HD, AIDS, Angina pectoris, Anticoagulant therapy, Atrial flutter, B leeding disorder, BPH, C diff colitis, Cardiac dysrhythmias, Chronic pain, Cirrhosis, C ongenital anomalies, Dyslipidemia, Gallbladder dis/stones, GI bleed, Glaucoma, Headache disorder, Hepatitis, HIV, Intracranial hemorrhage, Ischemi c stroke, Motor dysfunction, Pancreatitis, Peptic ulcer disease, Periph arter ial disease, Pressure ulcer, Prior NH, Schizophrenia, Sickle cell disease, St eroid use, Thyroid disorder, Transfusion history, Tuberculosis, Urinary tract infection, Venous thromboembolism. Past Surgical History: Reports: . Denies: Abdominal surgery, A ppendectomy, Bariatric procedure, CABG, Carotid endarterectomy, Cholecy stectomy, Dialysis shunt/AV fistula, Heart valve procedure, Hernia repair, H ysterectomy, Pacemaker, Spine surgery, Splenectomy, Tonsil lectomy, Transplant recipient, Vascular procedure, = , Am putation, Anesthesia complications, Bilateral tubal ligation, Bladder surgery, Breast biopsy/procedu re, Carpal tunnel release, Cranial procedure, D C, Eye surgery, Feeding tub e, Hip procedure, ICD, Indwelling IV catheter, Knee procedure, Lithotripsy, Lung surgery, Nephrectomy, PCI, Prostate surgery, Thyroidectomy, Tracheotom y, FILLER SHREDDING 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 Alcohol Use Denies EtOH use Drug Use Denies recreational drugs Smoking status: Smoking status for patients 13 years old or old er: Never Smoker Medications: Home Medications: FERROUS SULFATE (FEOSOL) 325 MG PO DAILY PNV WITH FE FUMARATE/FA () 1 TAB PO TONE Y Allergies: Coded Allergies: amoxicillin (From AUGMENTIN) (Intermediate, RASH 04/01/21) clavulanic acid (From AUGMENTIN) (Intermediate, RASH 04/01/21) Review of Systems Constitutional: Denies: chills, fatigue, fever. Respiratory: Denies: MARTINS (dyspnea on exertion), hemoptysis, n on productive cough. Cardiovascular: Denies: chest pain, MARTINS (dyspnea on exertion), e alonzo. GI: Reports: constipation. Denies: diarrhea, nausea, vomiting. : Reports: pelvic pain, . Denies: vaginal bleeding. Objective General VS: PATIENT WEIGHT: Weight (lb): Weight (oz): Weight (kg): 98.770034 Physical Exam HEENT: normocephalic w/o injury Cardiac: regular rate and rhythm Lungs: clear to auscultation Breasts: deferred Neuro: Exam: alert, oriented x3, normal speech Abdomen: gravid, soft, no abnormal tenderness, n o guarding, no rebound tenderness Musculoskeletal: normal inspection Genitourinary: no bladder distention Uterine activity: Monitor: toco Frequency (description): none Pelvic exam: Pelvis clinically adequate: yes Vulvar lesions: none Vagina: normal Cervical/ exam: Dilatation (cm): 0 - closed Effacement (%): 50 station: - 3 Membranes: Membranes: PPROM ROM date: 05/05/21 ROM time: 1000 Amniotic fluid: clear Odor: none Amount: small Lower extremities: Edema: none Baby A: Baby A baseline: 145 bpm Baby A variability: marked > 25 bpm Baby A accelerations: 15 X 15 Baby A decelerations: none Baby A FHR category: category 1 Result Findings/Data: Laboratory Tests: 05/06 1250 Hematology WBC (6.5 - 12.3 K/mm3) 9.5 RBC (3.51 - 4.69 M/mm3) 3.48 L Hgb (10.1 - 13.8 g/dL) 9.9 L Hct (32.5 - 41.8 %) 30.8 L MCV (84.6 - 96.6 fL) 88.5 MCH (27.3 - 33.9 pg) 28.4 MCHC (32.0 - 34.2 gm/dL) 32.1 RDW (12.2 - 16.3 %) 12.4 Plt Count (134 - 363 K/mm3) 277 MPV (9.2 - 12.7 fL) 11.1 Neut % (Auto) (57.9 - 77.3 %) 66.5 Lymph % (Auto) (14.5 - 29.7 %) 21.3 [place]ett % (Auto) (3.6 - 10.2 %) 10.3 H Eos % (Auto) (0.0 - 3.0 %) 0.6 Baso % (Auto) (0.1 - 0.9 %) 0.4 Neut # (Auto) (K/mm3) 6.3 Lymph # (Auto) (K/mm3) 2.0 [place] # (Auto) (K/mm3) 1.0 Eos # (Auto) (K/mm3) 0.06 Baso # (Auto) (K/mm3) 0.0 Diagnosis, Assessment Plan Diagnosis, Assessment Plan Assessment/Impression: PROM 37-38 weeks, 6 days, previous C/S, in labor Plan: Electronically Signed by Abel Mcgovern MD on 04/21 04/11 at 1410 RPT #:[id number] END OF REPORT 2021-05-06 [facility] 14:04:00-00:00 [facility] ([facility] OB Admission / H P REPORT#:[id number] REPORT STATUS: Signed DATE:05/06/21 TIME: 1404 PATIENT: SHARYN RUSSELL UNIT #: [id number] ROOM/BED: 2000-A : 92 AGE: 30 SEX: F ATTEND: Rafael Mcgovern MD ADM AUTHOR: Abel Mcgovern MD * ALL edits or amendments must be made on the el ectronic/computer document * See Addendum OB History Nursing Documentation Review Nursing data: The data set between the solid lines has been im ported from nursing documentation. Any exceptions have been noted be low under Provider comments. Current data Steroids prior to arrival: ROM date: ROM time: EDC date: 05/20/21 Gestational age (labor triage): Post hemorrhage risk score: Medium Risk f or Hemorrhage. Prior history : 3 Para: 1 Term: : Abortions spontaneous: Abortions induced: Living children: Ectopic: Stillbirths: Live births: deaths: Number of previous C/S: Reported maternal labs/data Blood type: Rh type: Rubella: Hepatitis B: HIV exposure test: VDRL: Group B beta strep: Rho(D) immune globulin this preg: Monitor mode - UA: Feeding preference: Provider comments on imported nursing data: [] Chief complaint: suspected ruptured memb HPI: Pt is a 30 y/o LAF at 37 6/7 weeks c/o l eaking fluid since yesterday morning. She denies VB, ctx, WEBSTER, scotomata, RUQP , EP history: : 3 Term: 1 Abortus: 1 Living children: 1 Previous : low uterine trans incis Current : Admission EGA (weeks) 38 Admission EGA (days) 0 Labs: Blood type: O Rh: positive Rubella: non-immune Hepatitis B: negative HIV: negative STD: negative Syphilis: currently negative GBS: negative Past History Past Medical History: Denies: Alcoholism/subst abu se, Anemia, Arthritis, Asthma, Atrial fibrillation, Cancer, Congestive heart failure, COPD, Coronary artery disease, Dementia, Depression/mood disorder, Diabetes mellitus, WYATT D/gastritis, Hypertension, Kidney disease/stones, Seizu re disorder, Transient ischemic attack, , Abdominal aortic aneurysm, ADD/AD HD, AIDS, Angina pectoris, Anticoagulant therapy, Atrial flutter, B leeding disorder, BPH, C diff colitis, Cardiac dysrhythmias, Chronic pain, Cirrhosis, C ongenital anomalies, Dyslipidemia, Gallbladder dis/stones, GI bleed, Glaucoma, Headache disorder, Hepatitis, HIV, Intracranial hemorrhage, Ischemi c stroke, Motor dysfunction, Pancreatitis, Peptic ulcer disease, Periph arter ial disease, Pressure ulcer, Prior NH, Schizophrenia, Sickle cell disease, St eroid use, Thyroid disorder, Transfusion history, Tuberculosis, Urinary tract infection, Venous thromboembolism. Past Surgical History: Reports: . Denies: Abdominal surgery, A ppendectomy, Bariatric procedure, CABG, Carotid endarterectomy, Cholecy stectomy, Dialysis shunt/AV fistula, Heart valve procedure, Hernia repair, H ysterectomy, Pacemaker, Spine surgery, Splenectomy, Tonsil lectomy, Transplant recipient, Vascular procedure, = , Am putation, Anesthesia complications, Bilateral tubal ligation, Bladder surgery, Breast biopsy/procedu re, Carpal tunnel release, Cranial procedure, D C, Eye surgery, Feeding tub e, Hip procedure, ICD, Indwelling IV catheter, Knee procedure, Lithotripsy, Lung surgery, Nephrectomy, PCI, Prostate surgery, Thyroidectomy, Tracheotom y, FILLER SHREDDING 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 Alcohol Use Denies EtOH use Drug Use Denies recreational drugs Smoking status: Smoking status for patients 13 years old or old er: Never Smoker Medications: Home Medications: FERROUS SULFATE (FEOSOL) 325 MG PO DAILY PNV WITH FE FUMARATE/FA () 1 TAB PO TONE Y Allergies: Coded Allergies: amoxicillin (From AUGMENTIN) (Intermediate, RASH 04/01/21) clavulanic acid (From AUGMENTIN) (Intermediate, RASH 04/01/21) Review of Systems Constitutional: Denies: chills, fatigue, fever. Respiratory: Denies: MARTINS (dyspnea on exertion), hemoptysis, n on productive cough. Cardiovascular: Denies: chest pain, MARTINS (dyspnea on exertion), e alonzo. GI: Reports: constipation. Denies: diarrhea, nausea, vomiting. : Reports: pelvic pain, . Denies: vaginal bleeding. Objective General VS: PATIENT WEIGHT: Weight (lb): Weight (oz): Weight (kg): 98.393122 Physical Exam HEENT: normocephalic w/o injury Cardiac: regular rate and rhythm Lungs: clear to auscultation Breasts: deferred Neuro: Exam: alert, oriented x3, normal speech Abdomen: gravid, soft, no abnormal tenderness, n o guarding, no rebound tenderness Musculoskeletal: normal inspection Genitourinary: no bladder distention Uterine activity: Monitor: toco Frequency (description): none Pelvic exam: Pelvis clinically adequate: yes Vulvar lesions: none Vagina: normal Cervical/ exam: Dilatation (cm): 0 - closed Effacement (%): 50 station: - 3 Membranes: Membranes: PPROM ROM date: 05/05/21 ROM time: 1000 Amniotic fluid: clear Odor: none Amount: small Lower extremities: Edema: none Baby A: Baby A baseline: 145 bpm Baby A variability: marked > 25 bpm Baby A accelerations: 15 X 15 Baby A decelerations: none Baby A FHR category: category 1 Result Findings/Data: Laboratory Tests: 05/06 1250 Hematology WBC (6.5 - 12.3 K/mm3) 9.5 RBC (3.51 - 4.69 M/mm3) 3.48 L Hgb (10.1 - 13.8 g/dL) 9.9 L Hct (32.5 - 41.8 %) 30.8 L MCV (84.6 - 96.6 fL) 88.5 MCH (27.3 - 33.9 pg) 28.4 MCHC (32.0 - 34.2 gm/dL) 32.1 RDW (12.2 - 16.3 %) 12.4 Plt Count (134 - 363 K/mm3) 277 MPV (9.2 - 12.7 fL) 11.1 Neut % (Auto) (57.9 - 77.3 %) 66.5 Lymph % (Auto) (14.5 - 29.7 %) 21.3 Po[place]ett % (Auto) (3.6 - 10.2 %) 10.3 H Eos % (Auto) (0.0 - 3.0 %) 0.6 Baso % (Auto) (0.1 - 0.9 %) 0.4 Neut # (Auto) (K/mm3) 6.3 Lymph # (Auto) (K/mm3) 2.0 [place] # (Auto) (K/mm3) 1.0 Eos # (Auto) (K/mm3) 0.06 Baso # (Auto) (K/mm3) 0.0 Diagnosis, Assessment Plan Diagnosis, Assessment Plan Assessment/Impression: PROM 37-38 weeks, 6 days, previous C/S, in labor Plan: Electronically Signed by Abel Mcgovern MD on 04/21 04/11 at 1410 Addendum 1: 05/08/21 1544 by Abel Mcgovern MD actually pt is 38 weeks Electronically Signed by Abel Mcgovern MD on 04/21 06/11 at 1544 RPT #:[id number] END OF REPORT 2021-04-20 [facility] 20:40:00-00:00 [facility] Evaluation Note REPORT#:[id number] REPORT STATUS: Signed DATE:04/20/21 TIME: 2039 PATIENT: SHARYN RUSSELL UNIT #: [id number] ROOM/BED: : 92 AGE: 30 SEX: F ATTEND: Rafael Mcgovern MD ADM DT: AUTHOR: Abel Mcgovern MD * ALL edits or amendments must be made on the el ectronic/computer document * [facility] History Nursing Documentation Review Nursing data: The data set between the solid lines has been im ported from nursing documentation. Any exceptions have been noted be low under Provider comments. Current data Steroids prior to arrival: ROM date: ROM time: EDC date: 05/20/21 Gestational age (labor triage): Post hemorrhage risk score: Medium Risk f or Hemorrhage. Prior history : 3 Para: 1 Term: : Abortions spontaneous: Abortions induced: Living children: Ectopic: Stillbirths: Live births: deaths: Number of previous C/S: Reported maternal labs/data Blood type: Rh type: Rubella: Hepatitis B: HIV exposure test: VDRL: Group B beta strep: Rho(D) immune globulin this preg: Monitor mode - UA: Feeding preference: Provider comments on imported nursing data: [] Chief complaint: diarrhea, nausea and vomiting HPI: Pt is a 30 y/o AAF at 35 weeks c/o 1 day 's h/o vomting and diarrhea. history: : 3 Term: 1 Abortus: 1 Living children: 1 Previous : low uterine trans incis Current : EDC: 05/20/21 Labs: Blood type: O Rh: positive Rubella: non-immune Hepatitis B: negative HIV: negative RPR: non-reactive STD: negative GBS: unknown Past medical history: denies PMH Past surgical history: denies PSH Social history: no alcohol use, no tobacco use, no drug use Medications: Home Medications: Medication Dose/Rte/Freq Days Qty Entered Last Max Daily Dose Reviewed FERROUS SULFATE 325 MG PO DAILY 04/01/21 (FEOSOL) 1323 Strength: 325 MG TAB PNV WITH FE 1 TAB PO DAILY 04/01/21 FUMARATE/FA 1323 () Strength: 1 EACH TAB Current Hospital Medications: Electrolytic, Caloric, And Kade Sig/Aracelis Start time Last Medication Dose Route Stop Time Status Admin Lactated Ringer's 1,000 ML BOLUS ONCE 04/20 161 5 DCD 04/20 (LACTATED RINGERS) IV 04/20 2200 1701 Gastrointestinal Drugs Sig/Aracelis Start time Last Medication Dose Route Stop Time Status Admin Ondansetron HCl 4 MG ONCE ONE 04/20 1915 DC (ZOFRAN 2 MG/ML 4 MG IV 04/20 191 1929 SYR) Loperamide HCl 2 MG Q8H PRN PRN 04/20 1615 DCD 04/20 (LOPERAMIDE HCL 2 MG PO 06/19 1614 1706 CAP) Ondansetron HCl 4 MG Q6H PRN PRN 04/20 1615 DCD 04/20 (ZOFRAN 2 MG/ML 4 MG IV 06/19 1614 1701 SYR) Allergies Coded Allergies: amoxicillin (From AUGMENTIN) (Intermediate, RASH 04/01/21) clavulanic acid (From AUGMENTIN) (Intermediate, RASH 04/01/21) Review of Systems Constitutional: Denies: chills, fatigue, fever. Respiratory: Denies: MARTINS (dyspnea on exertion), hemoptysis, n on productive cough. Cardiovascular: Denies: chest pain, MARTINS (dyspnea on exertion), e alonzo. GI: Reports: diarrhea, nausea, vomiting. : Reports: pelvic pain, . Denies: vaginal bleeding. Objective General VS: PATIENT WEIGHT: Weight (lb): 217 Weight (oz): Weight (kg): 97.976 Physical Exam HEENT: normocephalic w/o injury Cardiac: regular rate and rhythm Lungs: clear to auscultation Breasts: deferred Neuro: Exam: alert, oriented x3, normal speech Abdomen: gravid, soft, no abnormal tenderness, n o guarding, no rebound tenderness Musculoskeletal: normal inspection Genitourinary: no bladder distention Uterine activity: Monitor: toco Frequency (description): none Membranes: Membranes: Intact Lower extremities: Edema: none Results Findings/Data: Laboratory Tests: 04/20 04/20 04/20 1751 1648 1645 Chemistry Sodium (135 - 145 mEq/L) 139 Potassium (3.5 - 5.0 mEq/L) 3.7 Chloride (100 - 115 mEq/L) 105 Carbon Dioxide (22 - 31 mEq/L) 21 L Anion Gap (10 - 20) 17.10 BUN (7 - 18 mg/dL) 7 Creatinine (0.5 - 1.0 mg/dL) 0.5 Glomerular Filtr Rate (>60 ml/min) 147 Glucose (65 - 110 mg/dL) 79 Calcium (8.4 - 10.2 mg/dL) 8.2 L Total Bilirubin (0.2 - 1.0 mg/dL) 0.6 AST (15 - 37 units/L) 19 ALT (12 - 78 units/L) 13 Total Alk Phosphatase (46 - 116 units/L) 125 H Total Protein (6.3 - 8.2 gm/dL) 6.0 L Albumin (3.4 - 4.8 gm/dL) 2.6 L Hematology WBC (6.5 - 12.3 K/mm3) 10.9 RBC (3.51 - 4.69 M/mm3) 3.50 L Hgb (10.1 - 13.8 g/dL) 10.5 Hct (32.5 - 41.8 %) 32.6 MCV (84.6 - 96.6 fL) 93.1 MCH (27.3 - 33.9 pg) 30.0 MCHC (32.0 - 34.2 gm/dL) 32.2 RDW (12.2 - 16.3 %) 13.5 Plt Count (134 - 363 K/mm3) 243 MPV (9.2 - 12.7 fL) 10.9 Neut % (Auto) (57.9 - 77.3 %) 87.3 H Lymph % (Auto) (14.5 - 29.7 %) 5.1 L Poinsett % (Auto) (3.6 - 10.2 %) 5.6 Eos % (Auto) (0.0 - 3.0 %) 0.3 Baso % (Auto) (0.1 - 0.9 %) 0.4 Neut # (Auto) (K/mm3) 9.6 Lymph # (Auto) (K/mm3) 0.6 Poinsett # (Auto) (K/mm3) 0.6 Eos # (Auto) (K/mm3) 0.03 Baso # (Auto) (K/mm3) 0.0 Urines Urine Color (YELLOW) YELLOW Urine Appearance (CLEAR) Slightly-Cloudy Urine pH (5 - 9) 5.0 Ur Specific Adrian (1.001 - 1.035) 1.026 Urine Protein (NEG) 1+ H Urine Glucose (UA) (NEG) NEGATIVE Urine Ketones (NEG) 2+ H Urine Blood (NEG) NEG Urine Nitrite (NEG) NEG Urine Bilirubin (NEG) NEGATIVE Urine Urobilinogen (NEG mg/dL) NEGATIVE Ur Leukocyte Esterase (NEG) NEG Urine RBC (NONE SEEN #/hpf) 0-2 Urine WBC (NONE SEEN #/hpf) 0-2 Ur Epithelial Cells (RARE - FEW #/HPF) MODERATE H Urine Bacteria (RARE - FEW /HPF) RARE Urine Mucus (NONE SEEN) 1+ Diagnosis, Assessment Plan Diagnosis, Assessment Plan Assessment/Impression: Food poisoning causing vo miting diarrhea Plan: discharge home Electronically Signed by Abel Mcgovern MD on 03/24 at 2046 RPT #:[id number] END OF REPORT 2021-04-01 [facility] 17:34:00-00:00 [facility] ([facility] ZENAIDA Evaluation Note REPORT#:[id number] REPORT STATUS: Signed DATE:04/01/21 TIME: 1734 PATIENT: SHARYN RUSSELL UNIT #: [id number] ROOM/BED: : 92 AGE: 30 SEX: F ATTEND: Rafael Mcgovern MD ADM AUTHOR: Abel Mcgovern MD * ALL edits or amendments must be made on the el ectronic/computer document * ZENAIDA History Nursing Documentation Review Nursing data: The data set between the solid lines has been im ported from nursing documentation. Any exceptions have been noted be low under Provider comments. Current data Steroids prior to arrival: ROM date: ROM time: EDC date: Gestational age (labor triage): Post hemorrhage risk score: High Risk for Hemorrhage. Prior history : Para: Term: : Abortions spontaneous: Abortions induced: Living children: Ectopic: Stillbirths: Live births: deaths: Number of previous C/S: Reported maternal labs/data Blood type: Rh type: Rubella: Hepatitis B: HIV exposure test: VDRL: Group B beta strep: Rho(D) immune globulin this preg: Monitor mode - UA: Feeding preference: Provider comments on imported nursing data: [] Chief complaint: suspected ruptured memb HPI: Pt is a 30 y/o LAF at 33 weeks c/o leaki ng largeamount of liquid when she sneezed this morning. She denies ctx, VB, WEBSTER , scotomata, RUQP, EP history: : 3 Term: 1 Abortus: 1 Living children: 1 Previous : low uterine trans incis Current : EDC: 05/20/21 EGA (weeks/days): 33 weeks Labs: Blood type: O Rh: positive Rubella: non-immune Hepatitis B: negative HIV: negative RPR: non-reactive STD: negative GBS: unknown Past medical history: denies PMH Past surgical history: Social history: employed, , no al cohol use, no tobacco use, no drug use Medications: Home Medications: Medication Dose/Rte/Freq Days Qty Entered Last Max Daily Dose Reviewed FERROUS SULFATE 325 MG PO DAILY 04/01/21 (FEOSOL) 1323 Strength: 325 MG TAB PNV WITH FE 1 TAB PO DAILY 04/01/21 FUMARATE/FA 1323 () Strength: 1 EACH TAB Allergies Coded Allergies: amoxicillin (From AUGMENTIN) (Intermediate, RASH 04/01/21) clavulanic acid (From AUGMENTIN) (Intermediate, RASH 04/01/21) Review of Systems Constitutional: Denies: chills, fatigue, fever. Respiratory: Denies: MARTINS (dyspnea on exertion), hemoptysis, n on productive cough. Cardiovascular: Denies: chest pain, MARTINS (dyspnea on exertion), e alonzo. GI: Reports: constipation. Denies: diarrhea, nausea, vomiting. : Reports: . Denies: pelvic pain, vaginal bleeding. Objective General VS: PATIENT WEIGHT: Weight (lb): Weight (oz): Weight (kg): [id number] Physical Exam HEENT: normocephalic w/o injury Cardiac: regular rate and rhythm Lungs: clear to auscultation Breasts: deferred Neuro: Exam: alert, oriented x3, normal speech Abdomen: gravid, soft, no abnormal tenderness, n o guarding, no rebound tenderness Musculoskeletal: normal inspection Genitourinary: no bladder distention Uterine activity: Monitor: toco Frequency (description): none FHR evaluation: Baseline: 135 bpm Variability: marked > 25 bpm Accelerations: 15 X 15 Decelerations: none FHR category: category 1 Membranes: Membranes: Intact Lower extremities: Edema: none Results Findings/Data: amniosure negative Diagnosis, Assessment Plan Diagnosis, Assessment Plan Assessment/Impression: symptoms of PROM but no e vidence on ROM on exam Plan: discharge home Electronically Signed by Abel Mcgovern MD on 03/22 11/11 at 1740 [facility] #:[id number] END OF REPORT 2019-11-09 [id number] [facility] 08:57:00-00:00 [address], [place] [address] PATIENT NAME: SHARYN RUSSELL ADMIT DATE: 10/22 03/10 ACCOUNT NO: [id number] ROOM NO: .1999 AGE: 29 SEX: F ADMITTING PHYSICIAN: Mario Ferrer III, MD ATTENDING PHYSICIAN: Mario Ferrer III, MD ADMISSION DATE: 11/05/2019 DISCHARGE DATE: 11/09/2019 ADMITTING DIAGNOSES: Postdates intrauterine preg kerri for induction of labor. HISTORY: The patient is a 29-year-old 2, para 0, EDC was 10/30/2019, presented late on the for elective inductio n of labor for postdates . The patient has h ad no particular issues during the except for several visits to rule out rupture o f membranes in early labor and will be admitted for postdates induction. The re cent ultrasound revealed in the 36 to 40 percentile vertex presentation and norm al amniotic fluid. CURRENT MEDICATIONS: vitamin and iron. PAST MEDICAL HISTORY: She webster s had an ACL repair, gastric sleeve, and tonsil and adenoidectomy. LABORATORY DATA: Her blood t ype is O positive, GBS negative, rubella immune, GC and chlamydia negative, HIV negative, one-hour g lucose 89, VDRL nonreactive. HOSPITAL COURSE: The patient underwent Cytotec i nduction of labor. She had spontaneous rupture of membranes approximately 0 400 on the . Pitocin was begun. Several hours later, Pitocin augmentation with IUPC and scalp clip was performed with slight change in the cervix after approximately 13 hours of Pitocin with rupture of membranes. The c ervix had not dilated past 3 cm with a -2, -3 station, vertex and caput formation. A pr imary low transverse section was performed, which revealed an OP pres entation and definite asynclitic. The patient did well postoperatively , advanced to regular diet, discharged on postop day #3 in good condition. P reop hemoglobin was 10.1. Postop hemoglobin was 10.1. FINAL DIAGNOSES: Postdates intrauterine pregnanc y, relative cephalopelvic disproportion, OP asynclitic presentation. PROCEDURE: Primary low transverse secti on. DISPOSITION AND PROGNOSIS: The patient dismissed in good condition, regular diet, nonstrenuous activity. Continue v itamin with iron. She was dismissed on nonsteroidal anti-inflammatory agen ts for pain. Call the office for followup appointment in 2 to 6 weeks. Discha rge instructions given on fever, wound infections, and bladder infections. Dictated By: Mario Ferrer III, MD PATIENT NAME: SHARYN RUSSELL [id number] WT: DS:FMarcellaSHANEL/JOSE R/ERVIN Conf#: [id number]/DID#: [id number] Authenticated by Mario Ferrer MD On 11/11/2019 01:00:32 PM Electronically Signed by Mario Ferrer III, MD o n 11/11/19 at 1300 PATIENT NAME: SHARYN RUSSELL [id number] 2019-11-09 [facility] 08:49:00-00:00 [facility] ([facility]) OB Postpart Progr Note REPORT#:[id number] REPORT STATUS: Signed DATE:11/09/19 TIME: 0849 PATIENT: SHARYN RUSSELL UNIT #: [id number] ROOM/BED: : 92 AGE: 29 SEX: F ATTEND: Mario Ferrer III, MD ADM AUTHOR: Mario Ferrer III, MD * ALL edits or amendments must be made on the [employer] document * Subjective Subjective Admission EGA (wks/days): 41 weeks EGA at delivery (wks/days): 41 weeks Status/day: post , post operative Patient reports: Patient reports: Yes: normal lochia, pain management effective, tolerating po well, voiding well, voiding without pain, tolerating ambulatio n, flatus. No: complaints. Objective Nursing Documentation Review Nursing data: The data set between the solid lines has been im ported from nursing documentation. Any exceptions have been noted be low under Provider comments. Feeding preference: Provider comments on imported nursing data: [] Physical Exam Incision site: well approximated edges, darnell intact, dry Uterus: firm, involution appropriate Fundus: below the umbilicus Lochia: normal Lacerations: Perineal laceration(s): None Lower extremities: Edema: 1+ pitting Kayleigh's sign: negative Diagnosis, Assessment Plan Diagnosis, Assessment Plan Assessment: nml progress, anemia r/t: (Fedef) Plan: routine care, discharge today Plan discussed with: patient, spouse/partner at 0849 RPT #:[id number] END OF REPORT 2019-11-08 [facility] 08:45:00-00:00 [facility] ([facility]) OB Postpart Progr Note REPORT#:[id number] REPORT STATUS: Signed DATE:11/08/19 TIME: 0845 PATIENT: SHARYN RUSSELL UNIT #: [id number] ROOM/BED: : 92 AGE: 29 SEX: F ATTEND: Mario Ferrer III, MD ADM AUTHOR: Mario Ferrer III, MD * ALL edits or amendments must be made on the [employer]/computer document * Subjective Subjective Admission EGA (wks/days): 41 weeks EGA at delivery (wks/days): 41 weeks Status/day: post , post operative Patient reports: Patient reports: Yes: normal lochia, pain management effective, tolerating po well, voiding well, voiding without pain, tolerating ambulatio n. No: complaints, flatus, bowel movement, nausea, vomiting, excess thea bleeding, abdominal pain, perineal pain, difficulty nursing, headache, blurred visi on. Objective Nursing Documentation Review Nursing data: The data set between the solid lines has been im ported from nursing documentation. Any exceptions have been noted be low under Provider comments. Feeding preference: Provider comments on imported nursing data: [] Physical Exam Incision site: well approximated edges, darnell intact, dry Uterus: firm, involution appropriate Fundus: below the umbilicus Lochia: normal Lacerations: Perineal laceration(s): None Lower extremities: Edema: 1+ pitting Kayleigh's sign: negative Diagnosis, Assessment Plan Diagnosis, Assessment Plan Assessment: nml progress, anemia r/t: (Fedef) Plan: routine care, discharge tomorro w Plan discussed with: patient, spouse/partner Comments: Yesterday this patient's chart had not been assi gned to me. at 0848 RPT #:[id number] END OF REPORT 2019-11-06 [id number] [facility]00 [address], [place] [address] PATIENT NAME: SHARYN RUSSELL ADMIT DATE: 10/22 03/10 ACCOUNT NO: [id number] ROOM NO: 1999 AGE: 29 SEX: F ADMITTING PHYSICIAN: Mario Ferrer III, MD ATTENDING PHYSICIAN: Mario Ferrer III, MD OPERATION DATE: 11/06/2019 PREOPERATIVE DIAGNOSES: 1. Postdates intrauterine . 2. Failure to progress. POSTOPERATIVE DIAGNOSIS: Cephalopelvic dispropor tion, occipital posterior, asynclitic. PROCEDURE: Primary low transverse secti on. SURGEON: Mario Ferrer III, MD TRUCK FARMER: Jama Amaya SA ANESTHESIA: Epidural. PROCEDURE IN DETAIL: The patient was taken to [facility] operating room, prepped in the usual sterile manner for a vaginal abdominal procedure. Pfannenstiel incision was made with a skin knife and carried down to the fascia with a deep knife. Fascia excised in the midline and extended laterally with Rodriguez scissors. Rectus muscles were taken off rectus fascia wit h blunt and sharp dissection. Peritoneum entered bluntly w ith surgeon's fingertips and extended superiorly and inferiorly. A score incision was made in the uterus of approximately 4 cm above the bladder reflection. Viable female was noted to be deep in the pelvis, OP with significant asynclitic presentation with a caput. Infant was suctioned. Cord clamped and cut and pas sed to the nurse, crying vigorously, Apgars 8 and 9. The cord blood was obtained. Placenta sent to [facility] for stem cells. Uterus exteriorized, wiped free of all c lots and blood. Both tubes and ovaries normal. Uterus was very boggy, did not respond t o Pitocin, Methergine was given. Hysterotomy incision closed with #1 Monocryl starting in each angle with 2 [id number] for excellent hemostasis. Enterprise brittany firmed up nicely after Methergine was given and bim anual massage. Uterus was returned to the abdominal cavity. Gutters wiped free of all clots and blood, small amount of irrigation. Peritoneum closed with 2-0 M onocryl, fascia closed with 0 PDS. Subcutaneous was closed with Vicryl, and the skin was sanna sed with darnell. Estimated blood loss was 650 mL. The patient tolerated the procedure well and went to the recovery room in good condition. Dictated By: Mario Ferrer III, MD WT: OP:ESTEFANY/JOSE R/ERVIN PATIENT NAME: SHARYN RUSSELL [id number] Conf#: [id number]/DID#: [id number] Authenticated by Mario Ferrer MD On 11/09/2019 08:51:31 AM Electronically Signed by Mario Ferrer III, MD o n 11/09/19 at 0851 PATIENT NAME: SHARYN RUSSELL [id number] 2019-11-06 [facility] 19:46:00-00:00 [facility] ([facility]) OB Intrapart Prog Note REPORT#:[id number] REPORT STATUS: Signed DATE:11/06/19 TIME: 1945 PATIENT: SHARYN RUSSELL UNIT #: [id number] ROOM/BED: [address] : 92 AGE: 29 SEX: F ATTEND: Mario Ferrer III, MD ADM AUTHOR: Mario Ferrer III, MD * ALL edits or amendments must be made on the Beat[employer]/computer document * Subjective Subjective Admission EGA (wks/days): 41 weeks Patient reports: Patient reports: Yes leaking fluid, Yes comfortable with epidural, No complaints, No abdominal pain, No vaginal bleeding, No contractions, No n ormal movement, No decreased movement, No no movement, No headache, No blurred vision, No scotomata, No fever, No chills, No shortness of breath, No new complaints Objective Nursing Documentation Review Nursing data: The data set between the solid lines has been im ported from nursing documentation. Any exceptions have been noted be low under Provider comments. __ ROM date: 11/06/19 ROM time: 409 __ Provider comments on imported nursing data: [] Objective Cervical/ exam: Dilatation (cm): 2 (2-3) Effacement (%): 50 station: - 3 presentation: cephalic Est. wt (lbs) 7 Est. wt (oz) 5 Uterine activity: Monitor: toco Frequency (description): irregular Frequency (minutes): 5 Duration (seconds): 45 Intensity: moderate Resting tone: relaxed Tachysystole: No Diagnosis, Assessment Plan Assessment: normal FHR dina rn, normal progress of labor, slow progress of labor Plan: stop oxytocin, delivery Plan discussed with: patient, spouse/partner at 1948 RPT #:[id number] END OF REPORT 2019-11-06 [facility] 18:53:00-00:00 [facility]) OB Intrapart Prog Note REPORT#:[id number] REPORT STATUS: Signed DATE:11/06/19 TIME: 1852 PATIENT: SHARYN RUSSELL UNIT #: [id number] ROOM/BED: [address] : 92 AGE: 29 SEX: F ATTEND: Mario Ferrer III, MD ADM AUTHOR: Mario Ferrer III, MD * ALL edits or amendments must be made on the [employer]/computer document * Subjective Subjective Admission EGA (wks/days): 41 weeks Patient reports: Patient reports: Yes contractions, Yes normal movement, Ye s comfortable with epidural, No complaints, No abdominal pain, No vaginal ble eding, No leaking fluid, No decreased movement, No no movement, No headache, No blurred vision, No scotomata, No fever, No chills, No shortness of breath, No coping well w/o pain meds, No new complaints Objective Nursing Documentation Review Nursing data: The data set between the solid lines has been im ported from nursing documentation. Any exceptions have been noted be low under Provider comments. __ ROM date: 11/06/19 ROM time: 409 __ Provider comments on imported nursing data: [] Objective Cervical/ exam: Dilatation (cm): 2 (2-3) Effacement (%): 50 station: - 3 presentation: cephalic Est. wt (lbs) 7 Est. wt (oz) 5 Uterine activity: Monitor: toco Frequency (description): irregular Frequency (minutes): 5 Duration (seconds): 45 Intensity: moderate Resting tone: relaxed Tachysystole: No FHR Evaluation Baby A: Baby A baseline: 140 bpm Baby A variability: moderate 6-25 bpm Baby A accelerations: 10 X 10 Baby A decelerations: none Baby A FHR category: category 1 Diagnosis, Assessment Plan Assessment: normal FHR patte rn, normal progress of labor, slow progress of labor Plan: continue labor induction, stop oxytocin, d /c pit till adequate epidural level returns Additional notes: If no cx change in 2-3 hours, will proceed to C/ S at 1855 RPT #:[id number] END OF REPORT 2019-11-06 [facility] 15:26:00-00:00 [facility] ([facility]) OB Intrapart Prog Note REPORT#:[id number] REPORT STATUS: Signed DATE:11/06/19 TIME: 152 PATIENT: SHARYN RUSSELL UNIT #: [id number] ROOM/BED: [address] : 92 AGE: 29 SEX: F ATTEND: Mario Ferrer III, MD ADM AUTHOR: Mario Ferrer III, MD * ALL edits or amendments must be made on the [employer] document * Subjective Subjective Admission EGA (wks/days): 41 weeks Patient reports: Patient reports: Yes complaints, Yes abdominal pain, Yes contrac tions, Yes normal movement, Yes new complaints (labor pain), No vaginal bleeding, No leaking fluid , No decreased movement, No no movem ent, No headache, No blurred vision, No scotomata, No fever, No chills, No sh ortness of breath, No comfortable with epidural, No coping well w/o pa in meds Comments: I believe the patient startex to hyperventilate as ctx pain returned Objective Nursing Documentation Review Nursing data: The data set between the solid lines has been im ported from nursing documentation. Any exceptions have been noted be low under Provider comments. __ ROM date: 11/06/19 ROM time: 041 __ Provider comments on imported nursing data: [] Objective Cervical/ exam: Dilatation (cm): 2 (2-3) Effacement (%): 50 station: - 3 presentation: cephalic Est. wt (lbs) 7 Est. wt (oz) 5 Uterine activity: Monitor: toco Frequency (description): irregular Frequency (minutes): 5 Duration (seconds): 45 Intensity: moderate Resting tone: relaxed Tachysystole: No FHR Evaluation Baby A: Baby A baseline: 140 bpm Baby A variability: moderate 6-25 bpm Baby A accelerations: 10 X 10 Baby A decelerations: none Baby A FHR category: category 1 Diagnosis, Assessment Plan Assessment: normal FHR pattern, normal progress of labor Plan: anticipate vag delivery, stop oxytocin, d/ c pit till adequate epidural level returns Plan discussed with: patient, spouse/partner, pa chont at 1529 RPT #:[id number] END OF REPORT 2019-11-06 [facility] 11:58:00-00:00 [facility]) OB Intrapart Prog Note REPORT#:[id number] REPORT STATUS: Signed DATE:11/06/19 TIME: 1158 PATIENT: SHARYN RUSSELL UNIT #: [id number] ROOM/BED: [address] : 92 AGE: 29 SEX: F ATTEND: Mario Ferrer III, MD ADM AUTHOR: Mario Ferrer III, MD * ALL edits or amendments must be made on the [employer]/computer document * Subjective Subjective Admission EGA (wks/days): 41 weeks Patient reports: Patient reports: Yes contractions, Yes normal movement, Ye s comfortable with epidural, No complaints, No abdominal pain, No vaginal ble eding, No leaking fluid, No decreased movement, No no movement, No headache, No blurred vision, No scotomata, No fever, No chills, No shortness of breath, No coping well w/o pain meds, No new complaints Objective Nursing Documentation Review Nursing data: The data set between the solid lines has been im ported from nursing documentation. Any exceptions have been noted be low under Provider comments. __ ROM date: 11/06/19 ROM time: 409 __ Provider comments on imported nursing data: [] Objective Cervical/ exam: Dilatation (cm): 2 (2-3) Effacement (%): 50 station: - 3 presentation: cephalic Est. wt (lbs) 7 Est. wt (oz) 5 Uterine activity: Monitor: toco Frequency (description): irregular Frequency (minutes): 5 Duration (seconds): 45 Intensity: moderate Resting tone: relaxed Tachysystole: No FHR Evaluation Baby A: Baby A baseline: 140 bpm Baby A variability: moderate 6-25 bpm Baby A accelerations: 10 X 10 Baby A decelerations: none Baby A FHR category: category 1 Diagnosis, Assessment Plan Assessment: normal FHR pattern, normal progress of labor Plan: anticipate vag delivery, continue current managmnt, continue labor induction at 1159 RPT #:[id number] END OF REPORT 2019-11-06 [id number] [facility] 09:58:[facility]00 [address] [place], [place] [address] PATIENT NAME: SHARYN RUSSELL ADMIT DATE: 10/22 03/10 ACCOUNT NO: [id number] ROOM NO: F.008 AGE: 29 SEX: F ADMITTING PHYSICIAN: Mario Ferrer III, MD ATTENDING PHYSICIAN: Mario Ferrer III, MD ADMISSION DATE: 11/05/2019 ADMITTING DIAGNOSES: Postdates intrauterine preg kerri, induction of labor. HISTORY OF PRESENT ILLNESS: The patient is a 28- year-old 2, para 0, ectopic x1, EDC was 10/30/2019 presents for post dates induction with Cytotec. The patient has had an uneventful exce pt for a couple false alarms with rupture of membranes an d decreased movement. Last ultrasound done at [facility] showed a 36th percentil e with a fluid index of 16. The patient now presents for elective induction. LABORATORY DATA: Blood type O positive. GBS nega tive. Chlamydia, GC negative. HIV negative. One-hour glucose 89. Maternal ser um alpha fetoprotein was within normal limits. She has received Tdap and flu shot during . Rubella was immune. PAST MEDICAL HISTORY: The patient has had an ACL repair, T and A and gastric sleeve. ALLERGIES: TO PENICILLIN. CURRENT MEDICATIONS: vitamins and iron. REVIEW OF SYSTEMS: Negative. SOCIAL HISTORY: Negative for alcohol, tobacco or recreational drug use. PHYSICAL EXAMINATION: VITAL SIGNS: Blood pressure 128/80 with an approximately 20-pound weight gain. GENERAL: Well-developed, well-nourished female i n no apparent distress. Remainder of physical exam within normal limits. ABDOMEN: Gravid. Estimated weight 7 to 7-1 /2 pounds. PELVIS: Cervical exam was after epidural was 1 c m, 50% effaced, -3 station, vertex status post spontaneous rupture of membra zaki. IMPRESSION: Postdates intrauterine , in duction of labor, vertex presentation. PLAN: Pitocin augmentation after Cytotec and epi dural. Dictated By: Mario Ferrer III, MD WT: HP:FLIZBETH/JOSE R/ERVIN PATIENT NAME: SHARYN RUSSELL [id number] Conf#: [id number]/DID#: [id number] Authenticated by Mario Ferrer MD On 11/06/2019 06:58:09 PM Electronically Signed by Mario Ferrer III, MD o n 11/06/19 at 1858 PATIENT NAME: SHARYN RUSSELL ACCOUNT #: [id number] 2019-11-06 [facility] 07:52:00-00:00 [facility] ([facility]) OB Intrapart Prog Note REPORT#:[id number] REPORT STATUS: Signed DATE:11/06/19 TIME: 0752 PATIENT: SHARYN RUSSELL UNIT #: [id number] ROOM/BED: [address] : 92 AGE: 29 SEX: F ATTEND: Mario Ferrer III, MD ADM AUTHOR: Mario Ferrer III, MD * ALL edits or amendments must be made on the [employer]/computer document * Subjective Subjective Admission EGA (wks/days): 41 weeks Patient reports: Patient reports: Yes leaking fluid, Yes contractions, Yes ana maría l movement, Yes comfortable with epidural, N o complaints, No abdominal pain, No vaginal bleeding , No decreased movement, No no movem ent, No headache, No blurred vision, No scotomata, No fever, No chills, No sh ortness of breath, No coping well w/o pain meds, No new complaints Objective Nursing Documentation Review Nursing data: The data set between the solid lines has been im ported from nursing documentation. Any exceptions have been noted be low under Provider comments. __ ROM date: 11/06/19 ROM time: 409 __ Provider comments on imported nursing data: [] Objective Cervical/ exam: Dilatation (cm): 1 Effacement (%): 50 station: - 3 presentation: cephalic Est. wt (lbs) 7 Est. wt (oz) 5 Pelvis exam: Clinically adequate for this fetus: marginal wi th high vertex presentation Uterine activity: Monitor: toco Frequency (description): irregular Frequency (minutes): 5 Duration (seconds): 45 Intensity: moderate Resting tone: relaxed Tachysystole: No Current oxytocin: Indication: augmentation Infusion rate: 2.00 FHR Evaluation Baby A: Baby A baseline: 140 bpm Baby A variability: moderate 6-25 bpm Baby A accelerations: 10 X 10 Baby A decelerations: none Baby A FHR category: category 1 Diagnosis, Assessment Plan Free Text A P: post dates IUP SROM @ 0400 high vtx presentation s/p cytotec Contractions starting a couple pattern P: pitocin 2x2 Plan discussed with: patient at 0758 RPT #:[id number] END OF REPORT 2019-11-06 [facility] 05:36:00-00:00 [facility] ([facility] Clinical Note REPORT#:[id number] REPORT STATUS: Signed DATE:11/06/19 TIME: 0536 PATIENT: SHARYN RUSSELL UNIT #: [id number] ROOM/BED: [address] : 92 AGE: 29 SEX: F ATTEND: Mario Ferrer III, MD ADM AUTHOR: Brenda Pickard DO * ALL edits or amendments must be made on the el [employer]/computer document * Clinical Note Note: Germaine Scruggs Hospitalist on duty Request for bedside ultrasound for present ation I performed a limited bedside ultrasound with the following findings: cephalic presentation, visually low fluid volume, posteri or placenta, movements observed at 0538 RPT #:[id number] END OF REPORT"
[2023-05-31 07:10] VITALS: BP 118/86; TEMP 99.1; O2SAT 98
== END 2023-05-31 06:57 | disposition home or self-care (01) ==
LOC: ER 05:13
DX: H65.03 Acute serous otitis media, bilateral (principal); H60.552 Acute reactive otitis externa, left ear
CPT/HCPCS: 96372; 99284; J0696

== ENCOUNTER 2023-06-21 17:00 | Emergency (ER) | payer BC, OTHER ==
--- OUTSIDE RECORDS SUMMARY | 2023-06-21 17:08 | XMS REPORT | Continuity of Care Document ---
:[address] [facility] t Address [address] [place] [address] [place] [id number] Care Team Providers Name Role Phone Pcp, Patient Does Not Have A Primary Care Physician [id number] Abel Mcgovern Attending Clinician Unavailable Onur Cantu Attending Clinician Unavailable Mario Ferrer Attending Clinician Unavailable REKHA COSTA Attending Clinician Unavailable Rekha Costa DO Attending Clinician Eufemia Tejada RN Attending Clinician Unavailable GROVER MONSON Attending Clinician Unavailable Grover Monson DO Attending Clinician Doctor Unassigned, [place] Attending Clinician Unavailable TOBY OSORIO Attending Clinician Unavailable Troy SHERMAN, Mimi Sparks Attending Clinician Unavailable Moon Ruby Attending Clinician Liam Zimmerman S Attending Clinician LIAM CHAPA Attending Clinician Unavailable NILSON REED Attending Clinician Unavailable Reji RN, Archana Attending Clinician Unavailable Pob[facility], [facility] Attending Clinician Unavailable Maia Toledo Attending Clinician MAIA MARQUEZ Attending Clinician Unavailable Abel Mcgovern Admitting Clinician Unavailable KNOW, DOES_NOT Admitting Clinician Unavailable RON HOGUE Admitting Clinician Unavailable Mario Ferrer Admitting Clinician Unavailable Payers Payer Name Policy Type Policy Number Effective Date Expiration Date [facility] [id number] 2020 MEDICAID 00:00:00 [facility] [id number] 2023 00:00:00 [employer] [id number] 2022 00:00:00 Problems Condition Condition Condition Status Onset Resolution Last Treating Co mments Source Name Details Category Date Date Treatment Clinician Date Obesity Obesity Disease Active Univers (BMI (BMI 9-26 ity of 30-39.9) 30-39.9) 00:00: [address] Ectopic Ectopic Disease Active Univers 9-25 ity of without without 00:00: [place] intrauteri intrauteri 00 Me dical ne fl Branch , , unspecifie unspecifie d location d location Inappropri Inappropri Disease Active U nivers ate change ate change 8-22 it y of in in 00:00: [place] quantitati quantitati 00 Me dical ve hCG in ve hCG in Bran ch early early Acanthosis Acanthosis Disease Active U nivers nigricans nigricans 8-08 ity of 00:00: [address] Personal Personal Disease Active Unive rs history of history of 8-08 it y of gastric gastric 00:00: [place] banding banding [address] [place] [address] BMI BMI Disease Active Univers 37.0-37.9, 37.0-37.9, 8-08 it y of adult adult 00:00: [place] 00 Medical Branch Allergies, Adverse Reactions, Alerts Allergy Allergy Status [...] of [place] amoxicil DA Active MO RASH 2020-0 [facility] renea 6-11 Clear 00:00: [place] 00 [facility] clavulan DA Active MO 2020-0 [facility] ic acid 6-11 Clear 00:00: [place] 00 [facility] amoxicil DA Active MO 2020-0 [facility] renea 6-11 Clear 00:00: [place] 00 [facility] clavulan DA Active MO RASH 2020-0 [facility] ic acid 6-11 Clear 00:00: [place] 00 [facility] clavulan DA Active MO RASH 2020-1 [facility] ic acid 1-23 [facility] 00:00: [facility] l [facility] [place] amoxicil DA Active MO RASH 2020-1 [facility] renea 1-23 [facility] 00:00: [facility] [place] clavulan DA Active MO 2020-1 [facility] ic acid 1-23 Woman's 00:00: [facility] 00 [facility] [place] amoxicil DA Active MO 2020-1 [facility] renea [...] Hives 2018-0 Univer s renea-Pot ty to 08 ity of Clavulan adverse 00:00: [place] ate reaction 00 Medical s Branch AMOXICIL DRUG Active Hives 2017- Univers RENEA-POT 8-08 ity of CLAVULAN 00:00: [place] ATE 00 Medical Branch NO KNOWN Drug Active Univers ALLERGIE Class ity of S [facility] Social History Social Habit Start Date Stop Date Quantity Comments Source History SDOH University o f Alcohol Frequency [place] M ed[facility] History SDOH University o f Alcohol Std Drinks [place] [facility] History SDOH University o f Alcohol Binge [place] [facility] Gender identity Universit y of [facility] Sexual orientation Univer sity of [facility] Alcohol intake 2023-06-21 2023-06-21 Current drinker Unive rsity of 00:00:00 00:00:00 of alcohol [place] [facility] (finding) Branch Exposure to 2023-03-09 2023-03-[address] [facility] SARS-CoV-2 (event) 00:00:00 07:24:00 [facility] History of Social 2019-05-01 2019-05-01 Univers ity of function 00:00:00 00:00:00 [facility] Tobacco use and 2018-05-29 2018-05-29 Smokeless Universit y of exposure 00:00:00 00:00:00 tobacco non-user [facility] dical [place] Alcohol Comment 2018-05-29 2018-05-29 weekends / Universit y of 00:00:00 00:00:00 social [facility] Sex Ass[birth year] Universit y of 00:00:00 00:00:00 [facility] Smoking Status Start Date Stop Date Source Never smoked tobacco [facility] Medications Ordered Filled Start Stop Current Ordering Indication Dosage Frequency Signature Comments Components Source Medication Medication Date Date Medication? Clinician (SIG) Name Name polymyxin B Yes [id number] 1[drp] Place 1 Univers sulf-trimet 7-20 Drop in ity o f hoprim 00:00: left eye [place] 10,000 00 every 4 Medical unit- 1 (four) Branch mg/mL hours. ophthalmic drops polymyxin B Yes [id number] 1[drp] Place 1 Univers sulf-trimet 7-20 Drop in ity o f hoprim 00:00: left eye [place] 10,000 00 every 4 Medical unit- 1 (four) Branch mg/mL hours. ophthalmic drops polymyxin B Yes [id number] 1[drp] Place 1 Univers sulf-trimet 7-20 Drop [...] Medical Infusion, Branch ONCE, 1 dose, On 03/19/23 at 0830, [facility] diphenhydrA 2022- No 25mg 25 mg, Uni vers MINE 03-19 Slow IV ity of (BENADRYL) 12:45: 12:55 Push, [place] injection 00 :00 ONCE, 1 Medical 25 mg dose, On Branch 03/19/23 at 0745, STAT metoclopram 2022- No 10mg 10 mg, Uni vers faheem HCl 03-19 Slow IV ity of (REGLAN) 12:45: 12:55 Push, [place] injection 00 :00 ONCE, 1 Medical 10 mg dose, On Branch 03/19/23 at 0745, [facility] famotidine 2021- No 20mg 20 mg, Univ ers (PEPCID 06-18 Slow IV ity of (PF)) 20:30: 19:33 Push, [place] injection 00 :00 ONCE, 1 Medical 20 mg dose, On Branch 06/18/22 at 1530, Routine NaCl 0.9% 2021- No 1000mL at 999 Uni vers (NS) bolus 06-18 mL/hr, ity of infusion 20:15: 20:13 1,000 mL, Jack as 1,000 mL 00 :00 IV Medical Infusion, Branch ONCE, 1 dose, On 06/18/22 at 1515, [facility] maalox:diph No 15mL 15 mL, Uni vers enhydrAMINE 06-18 Oral, ity of :lidocaine 20:00: 20:08 ONCE, 1 Jack as 2 % viscous 00 :00 dose, On Medi ayana 1:1:1 [place] [facility] ([facility]22 [facility]) 1500, oral Routine suspension 15 mL ketorolac [...] [place] injection 4 00 :00 dose, On [facility] ayana mg [place] [facility] 06/18/22 at 1430, [facility]NER ondansetron 0 Yes [id number] 4mg Take 1 Univers 4 mg 8-28 tablet by ity of disintegrat 00:00: mouth [place] ing tablet 00 every 8 Medica l (eight) Branch hours as needed for Nausea and Vomiting (N/V). ondansetron 2021-0 Yes [id number] 4mg Take 1 Univers 4 mg 8-28 tablet by ity of disintegrat 00:00: mouth [place] ing tablet 00 every 8 Medica l (eight) Branch hours as needed for Nausea and Vomiting (N/V). ondansetron 2021-0 Yes [id number] 4mg Take 1 Univers 4 mg 8-28 tablet by ity of disintegrat 00:00: mouth [place] ing tablet 00 every 8 Medica l (eight) Branch hours as needed for Nausea and Vomiting (N/V). ondansetron 2021-0 Yes [id number] 4mg Take 1 Univers 4 mg 8-28 tablet by ity of disintegrat 00:00: mouth [place] ing tablet 00 every 8 Medica l (eight) Branch hours as needed for Nausea and Vomiting (N/V). ondansetron 2022-0 Yes [id number] 4mg Take 1 Univers 4 mg 8-28 tablet by ity of disintegrat 00:00: mouth [place] ing tablet 00 every 8 Medica l (eight) Branch hours as needed for Nausea and Vomiting (N/V). meloxicam 2019-10 Yes [id number] 7.5mg Take 1 Univers 7.5 mg 1-17 [id number] tablet by ity of tablet 00:00: mouth [place] 00 daily. [facility] meloxicam 2019-10 Yes [id number] 7.5mg Take 1 Univers 7.5 mg 1-17 [id number] tablet by ity of tablet 00:00: mouth [place] 00 daily. [facility] meloxicam 2019-10 Yes [id number] 7.5mg Take 1 Univers 7.5 mg 1-17 [id number] tablet by ity of tablet 00:00: mouth [place] 00 daily. [facility] meloxicam 2019-10 Yes [id number] 7.5mg Take 1 Univers 7.5 mg 1-17 [id number] tablet by ity of tablet 00:00: mouth [place] 00 daily. [facility] meloxicam 2019-10 Yes [id number] 7.5mg Take 1 Univers 7.5 mg 1-17 [id number] tablet by ity of tablet 00:00: mouth [place] 00 daily. [facility] meloxicam 2019-10 Yes [id number] 7.5mg Take 1 Univers 7.5 mg 1-17 [id number] tablet by ity of tablet 00:00: mouth [place] 00 daily. [facility] meloxicam 2019-10 Yes [id number] 7.5mg Take 1 Univers 7.5 mg 1-17 [id number] tablet by ity of tablet 00:00: mouth [place] 00 daily. [facility] meloxicam 2019-10 Yes [id number] 7.5mg Take 1 Univers 7.5 mg 1-17 [id number] tablet by ity of tablet 00:00: mouth [place] 00 daily. [facility] meloxicam 2019-10 Yes [id number] 7.5mg Take 1 Univers 7.5 mg 1-17 [id number] tablet by ity of tablet 00:00: mouth [place] 00 daily. [facility] meloxicam 2019-10 Yes [id number] 7.5mg Take 1 Univers 7.5 mg 1-17 [id number] tablet by ity of tablet 00:00: mouth [place] 00 daily. [facility] meloxicam 2019- Yes [id number] 7.5mg Take 1 Univers 7.5 mg 1-17 [id number] tablet by ity of tablet 00:00: mouth [place] 00 daily. Medical Branch ondansetron 2020- No [id number] 4mg Take 1 Univers (ZOFRAN 8-03 08-09 tablet by ity of ODT) 4 mg 00:00: 04:59 mouth [place] disintegrat 00 :00 every 8 Medic al ing tablet (eight) Branch hours as needed for Nausea and Vomiting (N/V) for up to 5 days. ondansetron 2019- No [id number] 4mg Take 1 Univers (ZOFRAN 8- 08-09 tablet by ity of ODT) 4 mg 00:00: 04:59 mouth [place] disintegrat 00 :00 every 8 Medic al ing tablet (eight) Branch hours as needed for Nausea and Vomiting (N/V) for up to 5 days. HYDROcodone 2017- Yes 1{tbl} Take 1 Un orquidea -acetaminop [...] Immunizations Ordered Filled Immunization Date Status Comments [facility] e Immunization Name Name SARS-COV-2 COVID-19 2021-01-24 Completed Unive rsity of MODERNA VACCINE 00:00:00 [place] Med ical Branch SARS-COV-2 COVID-19 2021-01-24 Completed Unive rsity of MODERNA VACCINE 00:00:00 [place] Med ical Branch SARS-COV-2 COVID-19 2021-01-24 Completed Unive rsity of MODERNA 12+ YRS 00:00:00 [place] Med ical VACCINE Branch SARS-COV-2 COVID-19 2021-01-24 Completed Unive rsity of MODERNA 12+ YRS 00:00:00 [place] Med ical VACCINE Branch SARS-COV-2 COVID-19 2021-01-24 Completed Unive rsity of MODERNA 12+ YRS 00:00:00 [place] Med ical VACCINE Branch SARS-COV-2 COVID-19 2021-01-24 Completed Unive rsity of MODERNA 12+ YRS 00:00:00 [place] Med ical VACCINE Branch SARS-COV-2 COVID-19 2020-12-27 Completed Unive rsity of MODERNA VACCINE 00:00:00 [place] Med ical Branch SARS-COV-2 COVID-19 2020-12-27 Completed Unive rsity of MODERNA VACCINE 00:00:00 [place] Med ical Branch SARS-COV-2 COVID-19 2020-12-27 Completed Unive rsity of MODERNA 12+ YRS 00:00:00 [place] Med ical VACCINE Branch SARS-COV-2 COVID-19 2020-12-27 Completed Unive rsity of MODERNA 12+ YRS 00:00:00 [facility] ical VACCINE Branch SARS-COV-2 COVID-19 2020-12-27 Completed Unive rsity of MODERNA 12+ YRS 00:00:00 [facility] ical VACCINE Branch SARS-COV-2 COVID-19 2020-12-27 Completed Unive rsity of MODERNA 12+ YRS 00:00:00 [facility] ical VACCINE Branch Vital Signs Vital Name Observation Time Observation Value Comments Source Systolic blood 2023-06-21 18:00:00 137 mm[Hg] Univer sity of pressure [place] [facility] Diastolic blood 2023-06-21 18:00:00 93 mm[Hg] Unive rsity of pressure [place] [facility] Heart rate 2023-06-21 18:00:00 116 /min Universi ty [facility] Body temperature 2023-06-21 18:00:00 37.11 Rosa M Univ ersity of [facility] Branch Respiratory rate 2023-06-21 18:00:00 16 /min Univ ersity of [place] [facility] Body height 2023-06-21 18:00:00 152.4 cm Universi ty [facility] Body weight 2023-06-21 18:00:00 97.07 kg Universi ty [facility] BMI 2023-06-21 18:00:00 41.79 kg/m2 [facility] Oxygen saturation in 2023-06-21 18:00:00 100 /min University of Arterial blood by [facility] Pulse oximetry Branch Systolic blood 2023-05-10 20:17:17 132 mm[Hg] Univer sity of pressure [place] [facility] Diastolic blood 2023-05-10 20:17:17 81 mm[Hg] Unive rsity of pressure [place] [facility] Heart rate 2023-05-10 20:17:17 90 /min Universi ty of [place] [facility] Respiratory rate 2023-05-10 20:17:17 16 /min Univ ersity of [place] [facility] Oxygen saturation in 2023-05-10 20:17:17 100 /min University of Arterial blood by [facility] Pulse oximetry Branch Body temperature 2023-05-10 19:34:05 36.89 Rosa M Univ ersity of [place] [facility] Body height 2023-05-10 19:20:00 152.4 cm Universi ty of [place] [facility] Body weight 2023-05-10 19:20:00 102.059 kg Universi ty of [place] [facility] BMI 2023-05-10 19:20:00 43.94 kg/m2 Universi ty of [place] [facility] Systolic blood 2023-03-19 13:53:00 125 mm[Hg] Univer sity of pressure [place] [facility] Diastolic blood 2023-03-19 13:53:00 83 mm[Hg] Unive rsity of pressure [place] [facility] Heart rate 2023-03-19 13:53:00 55 /min Universi ty of [place] [facility] Respiratory rate 2023-03-19 13:53:00 14 /min Univ ersity of [place] [facility] Oxygen saturation in 2023-03-19 13:53:00 98 /min University of Arterial blood by [place] [facility] [employer] [facility] Pulse oximetry Branch Body temperature 2023-03-19 12:26:00 37.22 Rosa M Univ ersity of [place] [facility] Body height 2023-03-19 12:26:00 152.4 cm Universi ty of [place] [facility] Body weight 2023-03-19 12:26:00 102.059 kg Universi ty of [place] [facility] BMI 2023-03-19 12:26:00 43.94 kg/m2 Universi ty of [place] [facility] Systolic blood 2022-06-18 20:00:00 113 mm[Hg] Univer sity of pressure [place] [facility] Diastolic blood 2022-06-18 20:00:00 76 mm[Hg] Unive rsity of pressure [place] [facility] Heart rate 2022-06-18 20:00:00 64 /min Universi ty of [place] [facility] Respiratory rate 2022-06-18 20:00:00 15 /min Univ ersity of [place] [facility] Oxygen saturation in 2022-06-18 20:00:00 99 /min University of Arterial blood by [place] [employer] [facility] Pulse oximetry Branch Body temperature 2022-06-18 19:13:00 36.89 Rosa M Univ ersity of [place] [facility] Body height 2022-06-18 19:13:00 152.4 cm Universi ty of [place] [facility] Body weight 2022-06-18 19:13:00 95.709 kg Universi ty of [place] [facility] BMI 2022-06-18 19:13:00 41.21 kg/m2 Universi ty of [place] [facility] Systolic blood 2020-11-23 04:00:00 125 mm[Hg] Univer sity of pressure [place] [facility] Diastolic blood 2020-11-23 04:00:00 75 mm[Hg] Unive rsity of pressure [place] [facility] Heart rate 2020-11-23 04:00:00 79 /min Universi ty of [place] [facility] Body temperature 2020-11-23 04:00:00 37 Rosa M Univ ersity of [place] [facility] Respiratory rate 2020-11-23 04:00:00 16 /min Univ ersity of [place] [facility] Oxygen saturation in 2020-11-23 04:00:00 98 /min University of Arterial blood by [facility] Pulse oximetry Branch Body weight 2020-11-23 02:18:00 87.091 kg Universi ty of [place] [facility] BMI 2020-11-23 02:18:00 37.50 kg/m2 Universi ty of [place] [facility] Systolic blood 2020-11-23 04:00:00 125 mm[Hg] Univer sity of pressure [place] [facility] Diastolic blood 2020-11-23 04:00:00 75 mm[Hg] Unive rsity of pressure [place] [facility] Heart rate 2020-11-23 04:00:00 79 /min Universi ty of [place] [facility] Body temperature 2020-11-23 04:00:00 37 Rosa M Univ ersity of [place] [facility] Respiratory rate 2020-11-23 04:00:00 16 /min Univ ersity of [place] [facility] Oxygen saturation in 2020-11-23 04:00:00 98 /min University of Arterial blood by [place] [facility] [employer] [facility] Pulse oximetry Branch Body weight 2020-11-23 02:18:00 87.091 kg Universi ty of [place] [facility] BMI 2020-11-23 02:18:00 37.50 kg/m2 Universi ty of [place] [facility] Systolic blood 2020-09-07 21:14:00 124 mm[Hg] Univer sity of pressure [place] [facility] Diastolic blood 2020-09-07 21:14:00 84 mm[Hg] Unive rsity of pressure [place] [facility] Heart rate 2020-09-07 21:14:00 77 /min Universi ty of [place] [facility] Body height 2020-09-07 21:14:00 152.4 cm Universi ty of [place] [facility] Body weight 2020-09-07 21:14:00 84.369 kg Universi ty of [place] [facility] BMI 2020-09-07 21:14:00 36.33 kg/m2 Universi ty of [facility] Branch Systolic blood 2020-09-07 21:14:00 124 mm[Hg] Univer sity of pressure [place] [facility] Diastolic blood 2020-09-07 21:14:00 84 mm[Hg] Unive rsity of pressure [place] [facility] Heart rate 2020-09-07 21:14:00 77 /min Universi ty of [place] [facility] Body height 2020-09-07 21:14:00 152.4 cm Universi ty of [place] [facility] Body weight 2020-09-07 21:14:00 84.369 kg Universi ty of [place] [facility] BMI 2020-09-07 21:14:00 36.33 kg/m2 Universi ty of [facility] Branch Systolic blood 2020-05-24 20:55:00 133 mm[Hg] Univer sity of pressure [place] [facility] Diastolic blood 2020-05-24 20:55:00 86 mm[Hg] Unive rsity of pressure [facility] Branch Heart rate 2020-05-24 20:53:00 63 /min Universi ty of [place] [facility] Body temperature 2020-05-24 20:53:00 37 Rosa M Univ ersity of [facility] Branch Respiratory rate 2020-05-24 20:53:00 18 /min Univ ersity of [facility] Body height 2020-05-24 20:53:00 152.4 cm Universi ty of [place] [facility] Body weight 2020-05-24 20:53:00 83.008 kg Universi ty of [place] [facility] BMI 2020-05-24 20:53:00 35.74 kg/m2 Universi ty of [facility] Branch Oxygen saturation in 2020-05-24 20:53:00 98 /min [facility] blood by [facility] Pulse oximetry Branch Procedures Procedure Date / Time Performing Clinician Source Performed CONSENT/REFUSAL FOR 2023-06-21 18:20:39 Doctor Unassigned, Unive [facility] DIAGNOSIS AND TREATMENT [place] [facility] CONSENT/REFUSAL FOR 2023-05-10 19:15:29 Doctor Unassigned, Unive [facility] DIAGNOSIS AND TREATMENT [place] [facility] CONSENT/REFUSAL FOR 2023-03-19 12:24:31 Mera Caldwell [facility] DIAGNOSIS AND TREATMENT [place] [facility] [place] POCT TEST 2022-06-18 19:35:00 Rekha Costa [facility] LIPASE 2022-06-18 19:25:00 Rekha [facility] COMP. METABOLIC PANEL 2022-06-18 19:25:00 Rekha Costa [facility] ([id number]) [facility] CBC WITH DIFF 2022-06-18 19:25:00 Rekha [facility] URINALYSIS 2022-06-18 19:25:00 Rekha [facility] CONSENT/REFUSAL FOR 2022-06-18 19:06:07 Mera Caldwell [facility] DIAGNOSIS AND TREATMENT [place] [facility] [id number] 2022-05-14 00:00:00 [facility] [id number] 2021-05-06 00:00:00 [facility] [id number] 2021-05-06 00:00:00 [facility] URINALYSIS 2020-11-23 03:41:00 Moon Lenz Roslyn o f [facility] RAPID STREP SCREEN FOR 2020-11-23 02:44:00 [facility] GROUP A [facility] ADC,CLC OR LCC ONLY - 2020-11-23 02:44:00 Moon Lenz [facility] INFLUENZA A & B DIRECT Medical B ranch ANTIGEN NOTICE OF PRIVACY 2020-11-23 02:15:37 Doctor Marlon [facility] PRACTICES [place] [facility] CONSENT/REFUSAL FOR 2020-11-23 02:15:15 Doctor Mera Mason [facility] DIAGNOSIS AND TREATMENT [place] [facility] [place] NO SHOW OR MISSED 2020-09-07 20:57:09 Doctor Marlon [facility] APPOINTMENT POLICY [place] [facility] h ACKNOWLEDGEMENT [id number] 2019-11-06 00:00:00 [facility] Encounters Start End Encounter Admission Attending Care Care Encounter Source Date/Time Date/Time Type Type Clinicians Facility Department ID 2022-06-23 Inpatient EL ZAKI Mcgovern LD [id number] [facility] 12:30:00 Chundar [id number] [facility] [place] 2022-06-21 Inpatient EL MARTINE Mcgovern LD [id number] [facility] 10:00:00 Chundar [id number] [facility] [place] 2022-05-12 Inpatient EM Chris, [facility] OBPP [id number] [facility] 09:58:00 Chundar [id number] [facility] [place] 2021-08-20 Emergency [facility] [id number] Univers 21:07:55 ity [facility] 2021-05-18 Inpatient EL ZAKI Mcgovern CARE [id number] [facility] 10:30:00 Chundar [id number] [facility] [place] 2021-01-04 Inpatient ZAKI Mcgovern RADI [id number] [facility] 10:00:00 Chundar [id number] [facility] [place] 2020-09-28 Inpatient BERTA Cantu [facility] [id number] [facility] 10:37:00 [facility] 2020-09-13 Inpatient ZAKI PaulaTO RADI [id number] [facility] 07:45:00 Mohr [facility] 2019-11-05 Inpatient Mario Chappell [facility] LD [id number] [facility] 18:18:00 [id number] [facility] [place] 2019-10-31 Inpatient Mario Ferrer [facility] ZENAIDA [id number] [facility] 19:15:00 [facility] [place] 2023-06-21 2023-06-21 [facility] [id number] Univers 13:29:00 14:03:00 REKHA davis [facility] 2023-06-21 2023-06-21 [facility] [id number] Univers 13:29:00 14:03:00 Rekha MANZO [id number] ryan [facility] [id number] [facility] [id number] [address] 2023-06-21 2023-06-21 MARIO Wilkins [id number] Univers 00:00:00 00:00:00 (Out) Eufemiatay HALEYY [id number] it [facility] [id number] [facility] [id number] [address] 2023-05-10 2023-05-10 Emergency X [facility] ERT [id number] Univers 14:22:00 15:28:00 GROVER ryan [facility] 2023-05-10 2023-05-10 Emergency [facility] [id number] Univers 14:22:00 15:28:00 Grover MANZO [id number] i ty [facility] 4.2.7.2.6 [facility] [id number] [address] 2023-03-19 2023-03-19 Emergency [facility] [id number] Univers 07:27:00 08:55:00 REKHA davis [facility] 2023-03-19 2023-03-19 Emergency [facility] [id number] Univers 07:27:00 08:55:00 Rekha MANZO [id number] ity [facility] 4.2.7.[address] [place] [id number] 2022-06-18 2022-06-18 Emergency [facility] [id number] Univers 14:16:00 15:19:00 REKHA davis [facility] 2022-06-18 2022-06-18 Emergency [facility] [id number] Univers 14:16:00 15:19:00 Rekha MANZO [id number] ity [facility] 4.2.7.[address] [place] [id number] 2022-06-18 2022-06-18 Xavier MARTIN [id number] Univers 00:00:00 00:00:00 Only Unassigned, CHRIS [id number] ity of [place] [facility] [id number] [facility] [id number] [place] [address] Branch 2022-05-12 2022-05-18 Inpatient EM Chris, [facility] OBPP [id number] [facility] 09:58:00 19:37:00 Chundar 73 [facility] [place] 2022-04-14 2022-04-14 Emergency EM Chris, [facility] ZENAIDA [id number] [facility] 14:48:00 18:15:00 Chundar 25 [facility] [place] 2022-04-14 2022-04-14 Emergency EM Chris, [facility] [id number] [facility] 14:48:00 18:15:00 Chundar [id number] [facility] [place] 2022-04-05 2022-04-06 Emergency EL Chris, [facility] ZENAIDA [id number] [facility] 21:56:00 01:00:00 Chundar 53 [facility] 2022-04-05 2022-04-06 Emergency EL Chris, [facility] H[facility] [id number] [facility] 21:56:00 01:00:00 Chundar [id number] [facility] 2022-03-02 2022-03-02 Emergency EM Chris, [facility]CAWH ZENAIDA [id number] [facility] 14:10:00 16:25:00 Chundar 63 [facility] 2022-03-02 2022-03-02 Emergency EM Chris, [facility] [id number] [facility] 14:10:00 16:25:00 Chundar [id number] [facility] 2021-05-06 2021-05-08 Inpatient EM Chris, [facility] OBPP [id number] [facility] 13:00:00 13:22:00 Chundar [id number] [facility] 2021-05-06 2021-05-06 Outpatient Chris, HCA LABO [id number] [facility] 14:52:00 14:52:00 Chundar 71 [facility] 2021-04-20 2021-04-20 Emergency EM Chris, [facility]CA[facility] ZENAIDA [id number]- [id number] [facility] 16:09:00 19:42:00 Chundar [id number] [facility] 2021-04-01 2021-04-01 Emergency EM Chris, [facility] ZENAIDA [id number]- [id number] [facility] 13:02:00 13:39:00 Chundar 198901 [facility] 2021-01-24 2021-01-24 Outpatient [facility] [id number] Univers 09:30:00 09:30:00 ity [facility] 2020-12-27 2020-12-27 Outpatient R JO, [facility] [id number] Univers 09:40:00 09:40:00 TOBY [facility] 2020-11-23 2020-11-23 Letter MARIO Simmons 1.2.840.114 [id number] Univers 00:00:00 00:00:00 (Out) Mimi PEREZ 350.1.13.10 [facility] [place] 4.2.7.2.686 Jack as [phone] [facility] 019 [place] 2020-11-23 2020-11-23 Letter MARIO Simmons 1.2.840.114 [id number] 33 00:00:00 00:00:00 (Out) Mimi PEREZ 350.1.13.10 [facility] 4.2.7.2.686 [id number] 019 2020-11-22 2020-11-22 Emergency Yoanna [facility] 1.2.840.114 [id number] Univers 20:20:00 22:26:00 Akilah Manzo 350.1.13.10 [facility] 4.2.7.2.686 [facility] [place] [id number] [facility] [address] [place] 2020-11-22 2020-11-22 Emergency Yoanna [facility] 1.2.840.114 [id number] 20:20:00 22:26:00 Akilah Manzo 350.1.13.10 [place] 4.2.7.2.686 [place] [id number] [facility] 2020-09-07 2020-09-07 [facility] 1.2.840.114 [id number] Univers 15:52:38 23:59:00 [facility]counter [facility] 350.1.13.10 [facility]y of Surgical 4.2.7.2.686 Jack as Specialti [id number] Me dical es 809 [facility] 2020-09-07 2020-09-07 [facility] 1.2.840.114 [id number] 959 15:52:38 23:59:00 [facility]counter [facility] 350.1.13.10 Surgical 4.2.7.2.686 Specialti [id number] es 809 [place] 2020-09-07 2020-09-07 [facility] [id number] Univers 15:15:00 15:15:00 [facility] 2020-09-07 2020-09-07 Office [facility] 1.2.840.114 [id number] Univers 14:57:36 15:12:36 Visit [facility] 350.1.13.10 it y of Surgical 4.2.7.2.686 Jack as Specialti [id number] Fl dical es 198 [facility] 2020-09-07 2020-09-07 Office [facility] 1.2.840.114 [id number] 97 14:57:36 15:12:36 Visit [facility] 350.1.13.10 Surgical 4.2.7.2.686 Specialti [phone] es 198 [place] 2020-09-07 2020-09-07 Orders Doctor MARIO 1.2.840.114 [id number] Univers 00:00:00 00:00:00 Only Unassigned, CHRIS 350.1.13.10 ity of [facility] 4.2.7.2.686 Jack as [id number] [address] 2020-09-06 2020-09-06 Outpatient R BRIANNA [facility] [id number] Univers 14:30:00 14:30:00 NILSON davis [facility] 2020-05-25 2020-05-25 Telephone Archana Mendoza 1.2.840.114 [id number] Univers 00:00:00 00:00:00 CHRIS 350.1.13.10 it y of [facility] 4.2.7.2.686 Jack as [id number] [facility] [address] 2020-05-24 2020-05-24 Urgent Pob1, Acute Care Clinic [facility] 1. 2.840.114 [id number] Univers 15:45:59 16:12:06 Maia Mckay [facility] 350.1.13.10 ity of [place] 4.2.7.2.686 Jack as Professio [id number] Fl dical nal [address] 2020-05-24 2020-05-24 Outpatient Dulce MARQUEZ [facility] [id number] Univers 15:40:00 16:12:06 MAIA davis [facility] 2019-11-06 2019-11-06 Outpatient [facility] [id number] [facility] 11:17:00 11:17:00 59 [facility] 2019-10-29 2019-10-29 Outpatient NabilMario christensen [facility] RADI F17 [id number] H[facility] 08:30:00 08:30:[address] [facility] [place] [place] 2019-10-20 2019-10-21 Emergency EM Mario Ferrer [facility] ZENAIDA F174 [id number] [facility] 22:55:00 01:55:00 [id number] [facility] Results Test Description Test Time Test Comments Results Result Comments Source COMP. METABOLIC PANEL (13263) 2022-06-18 19:48:09 Test Item Value Reference Range Interpretation Comme nts NA (test code = 2903218188) 142 mmol/L 135-145 K (test code = 7584269361) 4.0 mmol/L 3.5-5 CL (test code = 2166329068) 110 mmol/L 98-108 H CO2 TOTAL (test code = 0427626629) 26 mmol/L 23-31 AGAP (test code = 7784404608) 2-16 BUN (test code = 6971561164) 10 mg/dL 7-23 GLUCOSE (test code = 3449384292) 85 mg/dL 70-110 CREATININE (test code = 0.61 mg/dL 0.5-1.04 9338420061) TOTAL BILI (test code = 0.2 mg/dL 0.1-1.9 1485180901) CALCIUM (test code = 5552610328) 8.9 mg/dL 8.6-10.6 T PROTEIN (test code = 8949035022) 6.5 g/dL 6.3-8.2 ALBUMIN (test code = 5978385303) 4.0 g/dL 3.5-5 ALK PHOS (test code = 8725442278) 88 U/L 34-122 ALTv (test code = 1742-6) 31 U/L 5-35 AST(SGOT) (test code = 7401681754) 34 U/L 13-40 eGFR (test code = 7697182589) mL/min/1.73m2 MICHAEL (test code = MICHAEL) Association [...] tests). Lab Interpretation (test code = Abnormal 24657-8) [facility] 19:48:09 Test Item Value Reference Range Interpretation Comments LIPASE (test code = 2169498809) 138 U/L 0-220 Lab Interpretation (test code = Normal 70495-4) [facility] WITH [id number] 19:40:05 Test Item Value Reference Range Interpretation Comments WBC (test code = See_Comment [Automated 6690-2) message] The sy stem which generated this [...] RDW-SD (test code = 45.1 fL 39-49.9 18085-8) RDW-CV (test code = 14.1 % 12-15.5 788-0) PLT (test code = See_Comment [Automated 777-3) message] The sy stem which generated this result transmitted reference range : 166 - 358 10*3/ ?L. The reference r alejandro was not used to interpret this result as normal/abnormal . MPV (test code = 10.2 fL 9.5-12.9 13066-1) NRBC/100 WBC (test See_Comment [Automat ed code = 9982059618) message] The system which generated this result transmitted reference range : 0.0 - 10.0 /100 WBCs. The refer ence range was not u sed to interpret th is result as normal/abnormal . NRBC x10^3 (test code See_Comment [Auto mated = 8969151803) message] The s ystem which generated this result transmitted reference range : 10*3/?L. The reference range was not used to interpret this result as normal/abnormal . GRAN MAT (NEUT) % 54.5 % (test code = 770-8) IMM GRAN % (test code 0.20 % = 9494039478) LYMPH % (test code = 26.9 % 736-9) MONO % (test code = 11.2 % 5905-5) EOS % (test code = 6.1 % 713-8) BASO % (test code = 1.1 % 706-2) GRAN MAT x10^3(ANC) 3.61 10*3/uL 1.88-7.09 (test code = 3808604396) IMM GRAN x10^3 (test 0-0.06 code = 8696695643) LYMPH x10^3 (test code 1.78 10*3/uL 1.32-3.29 = 731-0) MONO x10^3 (test code 0.74 10*3/uL 0.33-0.92 = 742-7) EOS x10^3 (test code = 0.40 10*3/uL 0.03-0.39 H 711-2) BASO x10^3 (test code 0.07 10*3/uL 0.01-0.07 = 704-7) Lab Interpretation Abnormal (test code = 88630-9) [facility] [id number] 19:35:00 Test Item Value Reference Range Interpretation Comments POCT PREG (test code = 1605) Negative On board controls acceptable with Present C Line (test code = 3574) POCT PREG LOT # (test code = 3575) [id number] POCT PREG TEST DATE (test 08-21-2023 code = 3576) Lab Interpretation (test code = Normal 86274-8) [facility] W/AUTO [id number] 10:11:00 Test Item Value Reference Range Interpretation [...] NORMAL code = PLTMR) AG HEPATITIS B [id number] 21:13:00 Test Item Value Reference Range Interpretation Comments AG HEPATITIS B SURFACE (test code NONREACTIVE NONREACTIVE = HBSAG) AB HEPATITIS C [id number] 21:13:00 Test Item Value Reference Range Interpretation Comments AB HEPATITIS C (test code = NONREACTIVE NONREACTIVE A HCVAB) SIGNAL TO CUTOFF (test code = 0.04 <0.80 N CUTOFF) AB [id number] 21:13:00 Test Item Value Reference Range Interpretation Comments AB TREPONEMA (test code = TREPAB) NONREACTIVE NONREACTIVE COMPREHENSIVE METABOLIC [id number] 20:12:00 Test Item Value Reference Range Interpretation [...] 46-116 H code = ALKP) CBC W/AUTO [id number] 19:46:00 Test Item Value Reference Range Interpretation [...] code = BA#) 0.1 K/mm3 BILE ACIDS [id number] 09:10:00 Test Item Value Reference Range Interpretation Comments BILE ACIDS TOTAL 2.5 umol/L 0.0-10.0 Performed A t: BN (test code = [facility] hno6100 BILEACT) [place], [place] [address] eric Mcdaniel MD Ph:[phone] RUPTURE OF [id number] 15:52:00 Test Item Value Reference Range Interpretation Comments RUPTURE OF MEMBRANES (test code NON-RUPTURED = ROM) COVID 19 Asymptomatic IH [id number] 11:02:00 Test Item Value Reference Range Interpretation [...] cleared or approved; th e test hasbeen authorpaulo giraldo by FDA under an Emerge ncy Use Authorization(E UA) for use by darryl benton certified under the CLIA thatmeet the re quirements to perform mode rate, high or waivedcomple xity tests. This arnol t is authorized for use at thePoint of Car e (POC), i.e., in patien t care settingsoperati ng under a CLIA Certificat e of Waiver, Certifi clementine ofCompliance, o r Certificate of Accreditation. This test is only authori kristal for the duration of thedeclaration that circumstances e xist justifying theauthorizatio n of emergency use o f in vitro diagnostic test sfor detection and/o r diagnosis of CO VID-19 under Bxpthmp19 4(b)(1) of the Act, 21 U.S .C. 360bbb-3(b)(1), unless theauthorizatio n is terminated or r evoked sooner. URINALYSIS [id number] 10:51:00 Test Item Value Reference Range Interpretation [...] NONE SEEN URINE SAMPLE: CLEAN CATCHCOMPREHENSIVE METABOLIC [id number] 12:46:00 Test Item Value Reference Range Interpretation [...] units/L 46-116 H code = ALKP) URINALYSIS [id number] 12:32:00 Test Item Value Reference Range Interpretation [...] NONE SEEN URINE SAMPLE: CLEAN CATCHCBC W/AUTO [id number] 12:28:00 Test Item Value Reference Range Interpretation [...] NORMAL NORMAL code = PLTMR) RUPTURE OF [id number] 17:27:00 Test Item Value Reference Range Interpretation Comments RUPTURE OF MEMBRANES (test code NON-RUPTURED = ROM) COVID 19 Asymptomatic IH [id number] 17:26:00 Test Item Value Reference Range Interpretation [...] of Accreditation. This test is only authori zed for the duration of thedeclaration that circumstances e xist justifying theauthorizatio n of emergency use o f in vitro diagnostic test sfor detection and/o r diagnosis of CO VID-19 under Nrticac11 4(b)(1) of the Act, 21 U.S .C. 360bbb-3(b)(1), unless theauthorizatio n is terminated or r evoked sooner. URINALYSIS [id number] 14:34:00 Test Item Value Reference Range Interpretation [...] CATCHComment On arrival if delivery is not imminentCB W/AUTO [id number] 09:02:00 Test Item Value Reference Range Interpretation [...] NORMAL NORMAL code = PLTMR) RUPTURE OF [id number] 03:32:00 Test Item Value Reference Range Interpretation Comments RUPTURE OF MEMBRANES (test code = RUPTURED ROM) AB HIV 1 20:55:00 Test Item Value Reference Range Interpretation Comments AB HIV 1 2 (test code = NONREACTIVE INDEX NONREACTIVE SNS05KG) IS CONSENT FORM SIGNED FOR HIV TESTING? NAG HEPATITIS B [id number] 20:55:00 Test Item Value Reference Range Interpretation Comments AG HEPATITIS B NON REACTIVE NonReactive Previously re ported SURFACE (test code INDEX result: N ONREACTIVE = HBSAG) INDEXEdited by: HORACIO on 05/06/21:2054HB SAG prev. reported as:NONREACTIVE . . IS CONSENT FORM SIGNED FOR HIV TESTING? NAB HEPATITIS C [id number] 20:55:00 Test Item Value Reference Range Interpretation Comments AB HEPATITIS C NON REACTIVE NON REACT. A Previously re ported (test code = INDEX result: NONREAC TIVE HCVAB) INDEXEdited by: INFCE on 05/06/21:2054 VAB prev. reported as:NONREACTIVE . . SIGNAL TO CUTOFF <0.02 <0.80 N (test code = CUTOFF) IS CONSENT FORM SIGNED FOR HIV TESTING? NAB [id number] 20:55:00 Test Item Value Reference Range Interpretation Comments AB TREPONEMA (test code = TREPAB) NONREACTIVE NONREACTIVE IS CONSENT FORM SIGNED FOR HIV TESTING? NAB HIV 1 20:55:00 Test Item Value Reference Range Interpretation Comments AB HIV 1 2 (test code = NONREACTIVE INDEX NONREACTIVE A FMR67XY) IS CONSENT FORM SIGNED FOR HIV TESTING? NAG HEPATITIS B [id number] 20:55:00 Test Item Value Reference Range Interpretation Comments AG HEPATITIS B SURFACE NON REACTIVE INDEX NonReactive (test code = HBSAG) IS CONSENT FORM SIGNED FOR HIV TESTING? NAB HEPATITIS [id number] 20:55:00 Test Item Value Reference Range Interpretation Comments AB HEPATITIS C (test code NON REACTIVE INDEX NON REACT. = HCVAB) IS CONSENT FORM SIGNED FOR HIV TESTING? NAG HEPATITIS B [id number] 15:32:00 Test Item Value Reference Range Interpretation Comments AG HEPATITIS B SURFACE (test code NONREACTIVE NONREACTIVE = HBSAG) IS CONSENT FORM SIGNED FOR HIV TESTING? NAB HEPATITIS C [id number] 15:32:00 Test Item Value Reference Range Interpretation Comments AB HEPATITIS C (test code = NONREACTIVE NONREACTIVE HCVAB) SIGNAL TO CUTOFF (test code = <0.02 <0.80 N CUTOFF) IS CONSENT FORM SIGNED FOR HIV TESTING? NAB [id number] 15:32:00 Test Item Value Reference Range Interpretation Comments AB TREPONEMA (test code = TREPAB) NONREACTIVE NONREACTIVE IS CONSENT FORM SIGNED FOR HIV TESTING? NAB HIV 1 15:32:00 Test Item Value Reference Range Interpretation Comments AB HIV 1 2 (test code = XCH24AC) NONREACTIVE IS CONSENT FORM SIGNED FOR HIV TESTING? NCOMPREHENSIVE METABOLIC [id number] 14:12:00 Test Item Value Reference Range Interpretation [...] 46-116 H code = ALKP) CBC W/AUTO [id number] 13:39:00 Test Item Value Reference Range Interpretation [...] NORMAL NORMAL code = PLTMR) COMPREHENSIVE METABOLIC [id number] 18:42:00 Test Item Value Reference Range Interpretation [...] H code = ALKP) HEMOL. NOTIFIED CJURINALYSIS [id number] 17:37:00 Test Item Value Reference Range Interpretation [...] NONE SEEN URINE SAMPLE: CLEAN CATCHCBC W/AUTO [id number] 17:14:00 Test Item Value Reference Range Interpretation [...] code = PLTMR) - US PREG AFTER [id number] 11:21:00 [facility] : 1990 Sex: FPatient Name: SHARYN RUSSELL Unit No: [id number] EXAMS: CPT CODE: [id number] US PREG AFTER TRI 21843 [facility] [address] [place], [place] [address] OBSTETRICAL ULTRASOUND REPORT ----- Pat. Name: SHARYN RUSSELL Pat.No: [id number] Study Date: 01/04/2021 10:00am , Age: 13 1990, 30 Pregnancies: 3, Para 1 LMP: 08/13/2020 GA by LMP: 20w4d GA by US: 20w0d GA Selected: 20w4d (LMP) DANNA: 05/20/2021 ReferringMD: ABEL MCGOVERN Electronic Tester: Harriet Montiel RDMS, RVT CPT4: [id number] Admitting MD: Cyn MCGOVERN/Ind: SCAN 1 ANATOMY MEASU REMENTS AGE GROWTH EVALUATION Measurement GA Range Srce %for GA Ratios ---- ------- BPD 4.6 cm 19w6d (16e7y-41a9f) Hadl BPD 17% FL/BPD 0.72 HC 17.6 cm 20w0d (18w3d- 21w4d) Hadl HC 33% FL/AC 0.22 APD 4.8 cm APD HC/AC 1.16 (1.06 - 1.24) TAD 4.9 cm TAD CI 0.76 (0.70 - 0.86) AC 15.2 cm 20w1d (07h3e-94t4o) Hadl AC 40% FL 3.3 cm 20w0d (02k0k-66k0r) Hadl FL 36% HL 3.1 cm 20w2d (55d1y-80y3t) Monster MENDOZA 45% GA for sonogram 20w0d (81p0q-22v4y) Weight Estimate: based on (BPD,HC,AC,FL) Hadlock Weight: 347 gm (297-398) Hadlock : 0lbs, 12oz Cervical Length: 6.0 cm Heart Rate: 148 bpm MATERNAL ANATOMY Ovaries LxHxW (cm) Right 3.6 x 1.3 x 2.7 Vol: 6.6cc Left 3.2 x 1.9 x 2.1 Vol: 6.7cc CLINICAL SUMMARY Type of Gestation: Patten Intrauterine in variable presentation. size is appropriate for gestational age. growth: Consistent withnormal growth motion and organs seen: somatic activity observed body and limb movements seen Four chamber heart observed [facility] NAME: SHARYN RUSSELL Radiology Department PHYS: Abel Plummer MD [address] : 1990 AGE: 30 SEX: F [place], [place] [address] LOC: [facility] PHONE #: [phone] EXAM DATE: 01/04/2021 STATUS: REG CLI FAX #: [phone] RAD NO: Page 1 Signed Report (CONTINUED) Patient Name: SHARYN RUSSELL Unit No: [id number] EXAMS: CPT CODE: [id number] US PREG AFTER 1ST TRI 49695 (Continued) Left ventricular outflow tract (LVOT) seen Right ventricular outflow tract (RVOT) seen Regular cardiac rhythm observed Normal intracranial anatomy seen face and nasal bone seen Umbilical cord insertion in fetus seen stomach, Renal Fossa, Bladder and Spine seen Three vessel umbilical cord noted All four extremities observed abnormalities observed: None seen at this exam Placental location: Anterior Placental maturity : Grade 1 There is no evidence of placenta previa. Amniotic fluid volume is normal. Uterus and adnexa: No significant abnormality is seen. Thank you for allowing us to participate in the care of this patient. Israel Velasquez M.D. Electronic Signature 01/04/2021 11:21am at 1121 Reported and signedby: Kelley Velasquez MD CC: Abel Mcgovern MD Technologist: Harriet Montiel RDMS, RVT Probe: Trnscrbd D/ (1121) tTYRELLRMarcellaCER Orig Print D/T: S: 01/04/2021 (1121) [facility] NAME: SHARYN RUSSELL Radiology Department PHYS: Abel Plummer MD [address] : 1990 AGE: 30 SEX: F [place], [place] [address] LOC: [facility] PHONE #: [phone] EXAM DATE: 01/04/2021 STATUS: REG CLI FAX #: [phone] RAD NO: Page 2 Signed Report Patient Name: SHARYN RUSSELL Unit No: [id number] EXAMS: CPT CODE: [id number] US PREG AFTER TRI 89946 (Continued) [facility] NAME: SHARYN RUSSELL Radiology Department PHYS: Abel Plummer MD[address] : 1990 AGE: 30 SEX: F [place], [place] [address] LOC: F.RAD PHONE #: [phone] EXAM DATE: 01/04/2021 STATUS: REG CLI FAX #: [phone] RAD NO: Page 3 Signed [id number] 04:03:00 Test Item Value Reference Range Interpretation Comments APPEARANCE (test code = Hazy Clear A 5514090419) COLOR (test code = Yellow Yellow 6023616072) PH (test code = 4.8-8.0 4142469480) SP GRAVITY (test code = 1.003-1.030 9403235624) GLU U QUAL (test code = Normal Normal 7149056199) BLOOD (test code = Negative Negative 7120043818) KETONES (test code = Negative Negative 7645815190) PROTEIN (test code = Negative Negative 2887-8) UROBILIN (test code = Normal Normal 3339902929) BILIRUBIN (test code = Negative Negative 1802072174) NITRITE (test code = Negative Negative 1989345103) LEUK MARVIN (test code = 25/uL Negative A 4491090949) RBC/HPF (test code = See_Comment [Autom ated message] 1344370248) The system [employer] generated this result transmitted ref erence range: 0 - 3 HP F. The reference range was not used to int erpret this result as normal/abnormal . WBC/HPF (test code = See_Comment [Autom ated message] 9504955903) The system [employer] generated this result transmitted ref erence range: 0 - 5 HP F. The reference range was not used to int erpret this result as normal/abnormal . BACTERIA (test code = Few Negative A 0234915457) MUCOUS (test code = Slight Negative LPF A 2404394257) SQ EPITH (test code = HPF 4794506283) Lab Interpretation (test Abnormal code = 73613-6) [facility] OR [facility] ONLY - INFLUENZA A & B DIRECT [id number] 03:17:00 Test Item Value Reference Range Interpretation Comments Influenza A (test code = 81350-8) Negative Negative Influenza B (test code = 08217-7) Negative Negative Lab Interpretation (test code = Normal 58410-7) [facility] Tomball[facility]APID STREP SCREEN FOR GROUP [id number] 03:15:00 Test Item Value Reference Range Interpretation Comments Streptococcus pyogenes (group A) Negative Negative antigen (test code = 84716-5) Lab Interpretation (test code = Normal 33065-8) [facility] MRI LW JNT W/O CONT [id number] 09:09:00 [facility] 1990 Sex: F Patient Name: SHARYN RUSSELL Unit No: [id number] EXAMS: CPT CODE: [id number] MRI LW JNT W/[place] [address] MRI OF THE RIGHT KNEE DIAGNOSIS: 1. [...] lateral meniscus is as described. Medial meniscus iswithin normal limits in signal and configuration. No [...] Technologist: Maikel Hodges,RT(R) Transcribed D / (908) [facility] NAME: SHARYN RUSSELL [address] [place] [address] PHYS: Onur Morrow Yovani : 1990 AGE: 29 SEX: F [place] [address] LOC: Y.MRI PHONE #: [phone] EXAM DATE: 09/13/2020 STATUS: REG CLI FAX #: [phone] RAD #: D/C DT PAGE 1 Signed Report Patient Name: SHARYN RUSSELL Unit No: [id number] EXAMS: CPT CODE:[id number] MRI LW JNT W/[place] [address] <Continued> Orig Print D/T: S: 09/13/2020 (911) [facility] NAME: SHARYN RUSSELL [address] [place] [address] PHYS: Onur Morrow :1990 AGE: 29 SEX: F [place] [address] LOC: Y.MRI PHONE #: [phone] EXAM DATE: 09/13/2020 STATUS: REG CLI FAX #: [phone] RAD #: D/C DT PAGE 2 Signed ReportHGB [id number] 04:41:00 Test Item Value Reference Range Interpretation Comments HEMOGLOBIN (test code = HGB) 10.2 g/dL 10.7-13.9 L HEMATOCRIT (test code = HCT) 30.6 % 32.1-42.1 L AG HEPATITIS B [id number] 16:06:00 Test Item Value Reference Range Interpretation Comments AG HEPATITIS B SURFACE (test code NONREACTIVE NONREACTIVE = HBSAG) IS CONSENT FORM SIGNED FOR HIV TESTING? YAB HEPATITIS C [id number] 16:06:00 Test Item Value Reference Range Interpretation Comments AB HEPATITIS C (test code = NONREACTIVE NONREACTIVE HCVAB) SIGNAL TO CUTOFF (test code = <0.02 <0.80 N CUTOFF) IS CONSENT FORM SIGNED FOR HIV TESTING? CALLY [id number] 16:06:00 Test Item Value Reference Range Interpretation Comments AB TREPONEMA (test code = TREPAB) NONREACTIVE NONREACTIVE IS CONSENT FORM SIGNED FOR HIV TESTING? CALLY HIV 1 16:06:00 Test Item Value Reference Range Interpretation Comments AB HIV 1 2 (test Nonreactive NonReactive It is recog nized that code = CER77CN) currently av ailable assays for thed etection of antibodies t o HIV-1 and/or HIV-2 ma y notdetect all i nfected individuals. A negative test result martins snot exclude the pos sibility of exposure to or infection withH IV. HIV antibodies may be undetectable in some stages ofthe in fection and in some cli nical conditions. IS CONSENT FORM SIGNED FOR HIV TESTING? CALLY HIV 1 16:06:00 Test Item Value Reference Range Interpretation Comments AB HIV 1 2 (test Nonreactive NonReactive It is recog nized that code = YZI55OP) currently av ailable assays for thed etection [...] SIGNED FOR HIV TESTING? YAG HEPATITIS B [id number] 20:59:00 Test Item Value Reference Range Interpretation Comments AG HEPATITIS B SURFACE (test code NONREACTIVE NONREACTIVE = HBSAG) IS CONSENT FORM SIGNED FOR HIV TESTING? CALLY HEPATITIS C [id number] 20:59:00 Test Item Value Reference Range Interpretation Comments AB HEPATITIS C (test code = NONREACTIVE NONREACTIVE HCVAB) SIGNAL TO CUTOFF (test code = <0.02 <0.80 N CUTOFF) IS CONSENT FORM SIGNED FOR HIV TESTING? CALLY [id number] 20:59:00 Test Item Value Reference Range Interpretation Comments AB TREPONEMA (test code = TREPAB) NONREACTIVE NONREACTIVE IS CONSENT FORM SIGNED FOR HIV TESTING? YAB HIV 1 20:59:00 Test Item Value Reference Range Interpretation Comments AB HIV 1 2 (test code = VFD34WT) NONREACTIVE IS CONSENT FORM SIGNED FOR HIV TESTING? YAG HEPATITIS B [id number] 20:17:00 Test Item Value Reference Range Interpretation Comments AG HEPATITIS B SURFACE (test code NONREACTIVE NONREACTIVE = HBSAG) IS CONSENT FORM SIGNED FOR HIV TESTING? YAB HEPATITIS C [id number] 20:17:00 Test Item Value Reference Range Interpretation Comments AB HEPATITIS C (test code = HCVAB) NONREACTIVE SIGNAL TO CUTOFF (test code = CUTOFF) <0.80 IS CONSENT FORM SIGNED FOR HIV TESTING? YAB [id number] 20:17:00 Test Item Value Reference Range Interpretation Comments AB TREPONEMA (test code = TREPAB) NONREACTIVE NONREACTIVE IS CONSENT FORM SIGNED FOR HIV TESTING? YAB HIV 1 20:17:00 Test Item Value Reference Range Interpretation Comments AB HIV 1 2 (test code = LIV23WF) NONREACTIVE IS CONSENT FORM SIGNED FOR HIV TESTING? YCBC W/AUTO [id number] 19:51:00 Test Item Value Reference Range Interpretation [...] NORMAL NORMAL code = PLTMR) AMNISURE (ROM) [id number] 23:28:00 Test Item Value Reference Range Interpretation Comments AMNISURE (ROM) TEST (test code = NON-RUPTURED NON-RUPTURE AMNI) : *Specimen Comment: MANISH Thapa QC OK? YES- [id number] 10:01:00 Patient Name: SHARYN RUSSELL Unit No: [id number] EXAMS: CPT CODE: [id number] US [facility] [address] [facility]'[address] [address] OBSTETRICAL ULTRASOUND REPORT ------- Pat. Name: SHARYN RUSSELL Pat. No: [id number] Study Date: 10/29/2019 9:11am , Age: 13 1990, 28 LMP: 01/16/2019 GA by LMP: [id number] by 1st: 40w6d GA by US: 36w3d GA Selected: 39w6d (From Known E) DANNA: 10/30/2019 Referring MD: MARIO FERRER Electronic Tester: Julia Sol RDMS CPT4: USPREGFU Admitting MD: MARIO FERRER Hist/Ind: SCAN 2 FU GROWTH MEASUREMENTS AGE GROWTH EVALUATION Measurement GA Range Srce %for GA Ratios ----- ---- ------- BPD 8.6 cm 35w1d (24a9n-18b3o) Hadl BPD <05 FL/BPD 0.85 (0.71 - 0.87) HC 32.5 cm 36w2d (64x6c-31p7r) Hadl HC <05 FL/AC 0.22 (0.20 - 0.24) APD 10.2 cm APD H C/AC 0.97 (0.89 - 1.08) TAD 11.1 cm TAD CI 0.77 (0.70 - 0.86) AC 33.5 cm 37w4d (35z5a-97v8l) Hadl AC10% FL 7.3 cm 37w2d (75z8s-17t4e) Hadl FL 12% HL 6.2 cm 36w0d (07x9k-03e8x) Monster HL <05 GA for sonogram 36w3d (83t2e-61a4i) Weight Estimate: based on (BPD,HC,AC,FL) Hadlock Weight: 3086 gm (2320-9162) Hadlo : 6lbs, 12oz Normal: 3264 gm (7832-6912) Brenn Wt% 36% for 39.9 wks Heart Rate: 126 bpm Amniotic Fluid Index: 16.0cm (07.1-21.6) Q1: 3.5cm Q2: 4.2cm Q3: 4.0cm Q4: 4.3cm MATERNAL ANATOMY Ovaries LxHxW (cm) Right 2.2 x 1.5 x 2.4 Vol: 4.1cc Left 2.2 x 1.6 x 2.0 Vol: 3.7cc -- CLINICAL SUMMARY Type of Gestation: Patten Intrauterine in vertex presentation. size is appropriate for gestational age. growth: Consistent with normal growth motion and organs seen: [facility] NAME: SHARYN RUSSELL Radiology Department PHYS: Mario Saunders III, MD [address] : 1990 AGE: 29 SEX: [place] [address] LOC: KoleRAD PHONE #: [phone] EXAM DATE: 10/29/2019 STATUS: REG CLI FAX #: [phone] RAD NO: Page 1 Signed Report ( CONTINUED) Patient Name: SHARYN RUSSELL Unit No: [id number] EXAMS: C[place]: [id number] [address] (Continued) somatic activity observed body and limb movements seen Regular cardiac rhythm observed Placental location: Posterior Right lateral Placental maturity : Grade 3 There is no evidence of placenta previa. Amniotic fluid volume is normal. Uterus and adnexa: No significant abnormality is seen. Thank you for allowing us to participate in the care of this patient. Israel Velasquez M.D. Electronic Signature 10/29/2019 10:01am at 1001 Reported and signed by: Kelley Velasquez MD CC: Mario larsen III, MD Technologist: Julia Sol RDMS Probe: Trnscrbd D/ (1001) t.SDR.CER Orig Print D/T: S: 10/29/2019 (1001) [facility] NAME: SHARYN RUSSELL ZEYNEP Radiology Department PHYS: Mario Saunders III, MD [address] : 1990 AGE: 29 SEX: F [place] [address] LOC: Hector.RAD PHONE #: [phone] EXAM DATE: 10/29/2019 STATUS: REG CLI FAX#: [phone] RAD NO: Page 2 Signed Report Patient Name: SHARYN RUSSELL Unit No: [id number] EXAMS: CPT CODE: [id number] [place] [address] (Continued) [facility] NAME: SHARYN RUSSELL LUKASRaghav Radiology Department PHYS: Mario Saunders III, MD [address] : 1990 AGE: 29 SEX: F [place] [address] LOC: F.RAD PHONE #: [phone] EXAM DATE: 10/29/2019 STATUS: REG CLI FAX #: [phone] RAD NO: Page 3 Signed Report- US PREG AFTER [id number] 12:18:00 Patient Name: SHARYN RUSSELL Unit No: [id number] EXAMS: CPT CODE: [id number] US PREG AFTER TRI [address] [facility] [address] [place], [place] [address] OBSTETRICAL ULTRASOUND REPORT ------- Pat. Name: SHARYN RUSSELL Pat. No: [id number] Study Date: 06/09/2019 10:46am , Age: 13 1990, 28 LMP: 01/16/2019 GA by LMP: 20w4d GA by US: 18w6d GA Selected: 20w4d (LMP) DANNA: 10/23/2019 Referring MD: Nabil Martin Electronic Tester: Julia laird RDMS CPT4: [id number] Admitting MD: MARIO FERRER Hist/Ind: SCAN 1 ANATOMY SCAN/DATES -------- MEASUREMENTS AGE GROWTH EVALUATION Measurement GA Range Srce %for GA Ratios ----- ---- ------- BPD 4.2 cm 18w4d (54n9q-26b4n) Hadl BPD <05 FL/BPD 0.71 HC 16.2 cm 18w6d (17w2d- 20w3d) Hadl HC <05 FL/AC 0.22 APD 4.2 cm APD HC/AC 1.18 (1.06 - 1.24) TAD 4.5 cm TAD CI 0.76 (0.70 - 0.86) AC 13.7 cm 18w6d (76k5o-78r0c) Hadl AC 9% FL 3.0 cm 18w6d (33q2m-46n4t) Hadl FL 13% HL 2.9 cm 19w3d (63z1n-96m2i) Monster HL 31% GA for sonogram 18w6d (88z7b-62t9x) Weight Estimate: basedon (BPD,HC,AC,FL) Hadlock Weight: 276 [...] seen Three vessel umbilical cord noted [facility] NAME: SHARYN RUSSELL Radiology Department PHYS: Mario Saunders III, MD [address] : 1990 AGE: 28 SEX: F [place], [place] [address] LOC: [facility] PHONE #: [phone] EXAM DATE: 06/09/2019 STATUS: REG CLI FAX #: [phone] RAD NO: Page 1 Signed Report (CONTINUED) Patient Name: RUSSELLSHARYN King Unit No: [id number] EXAMS: CPT CODE: [id number] US PREG AFTER TRI [address] (Continued) abnormalities observed: None seen at this [...] Electronic Signature 06/09/2019 12:18pm at 1218 Reported and signed by: Kelley Velasquez MD CC: Mario Ferrer III, MD Technologist: Julia Sol RDMS Probe: Trnscrbd D/ (1218) t.SDR.CER Orig Print D/T: S: 06/09/2019 (1218) [facility] NAME: RUSSELLSHARYN Radiology Department PHYS: Mario Saunders III, MD [address] : 1990 AGE: 28 SEX: F [place] [address] LOC: Kole[facility] PHONE #: [phone] EXAM DATE: 06/09/2019 STATUS: REG CLI FAX #: [phone] RAD NO: Page 2 Signed Report Patient Name: SHARYN RUSSELL Unit No: [id number] EXAMS: CPT CODE: [id number] US PREG AFTER 1ST TRI [address] (Continued) [facility] NAME: SHARYN RUSSELL Radiology Department PHYS: Mario Saunders III, MD [address] : 1990 AGE: 28 SEX: F [place] [address] LOC: Kole[facility] PHONE #: [phone] EXAM DATE: 06/09/2019 STATUS: REG CLI FAX #: [phone] RAD NO: Page 3 Signed Report Notes Date/Time Note Provider Source 2023-06-21 Formatting of this note might be differe nt from the original. Azucena Gonzalez RN [facility] 14:02:04-00:00 Pt discharged home. Given al l education and information regarding care/management; fever control; and follow up importance. Also informed of my chart results . Pt verbalized understanding. Alert and ambulatory to pov with family. Electronically signed by Azucena Gonzalez RN at 0 06/21/2023 2:02 PM CDT 2023-06-21 Formatting of this note might be differe nt from the original. Kodak Lemos [facility] 13:28:27-00:00 Patient has URI symptoms jose rafael t started today. Been around somebody with covid. RN 2023-06-21 Formatting of this note is different from the or iginal. [facility] 13:20:00-00:00 [facility] Emergency Department Note Patient Name: Sharyn Russell Date of : 1990 32 year old female Treatment Room: [place] [address] Primary Care Physician: PATIENT DOES NOT HAVE A PCP Patient Escorted by: Family [5] Mode of Arrival: Personal means [1] EMS Treatment Prior to ED Arrival: Travel and Exposure Screening: Symptoms Does patient have any of these symptoms?: (not r ecorded) Exposure Screening Has patient had contact with someone with a communicable disease in the last month?: (not recorded) Diseases exposed to:: (not recorded) Is Patient ?: (not recorded) Exposure Date: (not recorded) Chief Complaint: Chief Complaint Patient presents with URI History of Present Illness: The patient presents from [facility] for evaluation for body aches, cough and not feeling well that started today. She has sick contacts at her work that have tested positive for COVID. No medications for sym ptoms today. She does not sm wm. No history of asthma. Decreased oral intake today due to loss of appetite but no vomiting. Here for evaluation. Past Medical History/Immunizations: Past Medical History: Diagnosis Date Acanthosis nigricans noted on neck Allergies: No Known Allergies Past Social History: Tobacco Use Never smoked or used smokeless tobacco. Alcohol Use Yes. Comments: weekends / social Drug Use No. Sexual Activity Sexually active; Partners: Male; Control/ Protection: None. Past Surgical History: Past Surgical History: Procedure Laterality Date ANTERIOR CRUCIATE LIGAMENT RECONSTRUCTION 01/08 17 LAPAROSCOPIC GASTRIC SLEEVE (SHX) 08/2017 TONSILLECTOMY WITH ADENOIDECTOMY 10/2009 Review of Systems: Review of Systems Constitutional: Positive for chills and fever (s ubjective). HENT: Negative for sore throat. Respiratory: Positive for cough. Cardiovascular: Negative for chest pain. Gastrointestinal: Negative for abdominal pain, n ausea and vomiting. Genitourinary: Negative for dysuria. Musculoskeletal: Positive fo r myalgias. Negative for arthralgias, neck pain and neck stiffness. Neurological: Negative for dizziness. Psychiatric/Behavioral: Negative for agitation. Endocrine: Negative for goiter. Physical Exam: ED Triage Vitals [06/21/23 1300] Weight 97.1 kg (214 lb) Actual or estimated Height 1.524 m (5') BP (!) 137/93 Pulse 116 Resp 16 Temp 37.1 ?C (98.8 ?F) Temp source Oral SpO2 100 % Measured on Physical Exam Vitals and nursing note reviewed. Constitutional: Appearance: Normal appearance. She is obese. HENT: Head: Normocephalic and atraumatic. Right Ear: Tympanic membrane and ear canal norm al. Left Ear: Tympanic membrane and ear canal abraham l. Nose: Nose normal. Mouth/Throat: Mouth: Mucous membranes are moist. Pharynx: Oropharynx is linda r. No oropharyngeal exudate or posterior oropharyngeal erythema. Cardiovascular: Rate and Rhythm: Normal rate and regular rhythm . Pulmonary: Effort: Pulmonary effort is normal. No respirat ory distress. Breath sounds: No stridor. No wheezing or rhonc hi. Abdominal: General: There is no distension. Palpations: Abdomen is soft. Tenderness: There is no abdominal tenderness. Musculoskeletal: General: Normal range of motion. Cervical back: Normal range of motion and neck supple. Skin: General: Skin is warm and dry. Neurological: General: No focal deficit present. Mental Status: She is alert and oriented to per son, place, and time. Radiology: No orders to display Lab Results: Lab Results - No data to display EKG: If EKG completed, see Procedure Note. Orders and Treatments: Orders Placed This Encounter Procedures COVID-19 (ID NOW TESTING) No orders of the defined types were placed in th is encounter. First Provider Eval: ED Events Date/Time Event User Comments 06/21/23 1321 Medical Screening Begins REKHA COSTA DO -- 06/21/23 1321 First Provider Evaluation REKHA KOCH DO -- No notes of EC Admission Criteria type on file. ED COURSE Diagnosis/Impression as of 06/21/23 1341 Upper respiratory tract infection, unspecified t ype Procedures: Procedures MDM: Medical Decision Making The patient presents from [facility] for evaluation for body aches, cough and not feeling well that started today. She has sick contacts at her work that have tested positive for COVID. No medications for sym ptoms today. She does not sm wm. No history of asthma. Decreased oral intake today due to loss of appetite but no vomiting. Here for evaluation. Vital signs are stable in the ER. Her lungs are clear bilaterally. Her pharynx is pink without excess erythema. Her tympanic membranes are pearly wilson. Suspect a viral syndrome. The patient does desire testing for COVID. She can follow-up with results on the MyChart ap p. Recommend she is over-the-co unter cough and cold medications as needed for her symptoms. She remained stable here in the ER and is okay for discharge home with PCP follow-up. Problems Addressed: Upper respiratory tract infection, unspecified t ype: acute illness or injury Risk OTC drugs. Flowsheet Documentation: Scoring Tools: No data recorded Disposition/Condition: ED Disposition ED Disposition Disch - Home Condition Stable Comment -- Discharge Medications: Patient's Medications START taking these medications No medications on file CONTINUE taking these medications which have NOT CHANGED HYDROCODONE-ACETAMINOPHEN 5 -325 MG TABLET Take 1 tablet by mouth every 6 (six) hours as needed for Pain (scale 4-6) or Pain (scale 7-10). MELOXICAM 7.5 MG TABLET Take 1 tablet by mouth daily. ONDANSETRON 4 MG DISINTEGRA TING TABLET Take 1 tablet by mouth every 8 (eight) hours as needed for Nausea and Vomiting (N/V). POLYMYXIN B SULF-TRIMETHOPR IM 10,000 UNIT- 1 MG/ML OPHTHALMIC DROPS Place 1 Drop in left eye every 4 (four) hours. START taking Modified Medications as Prescribed No medications on file STOP taking these medications No medications on file Follow-up: Electronically signed by: Rekha Costa DO 06/21/23 1341 2023-05-10 Formatting of this note might be differe nt from the original. Ryanne Hwang RN [facility] 15:26:20-00:00 Pt given printed and verbal [...] a t 05/10/2023 3:27 PM CDT 2023-05-10 [facility] 15:24:26-00:00 Ambulatory steady gait to restroom Electronically signed by Ryanne Hwang RN a t 05/10/2023 3:24 PM CDT 2023-05-10 Formatting of this note might be differe nt from the original. Marc Morales RN [facility] 14:18:38-00:00 Patient CO of left eye pain/ pressure starting today, patient left eye is red and states her vision is a little blurry. Patient also CO of electric shock feeling starting 2 days ago on the right side of her face and a headache. 2022-05-18 [facility] 18:31:00-00:00 [facility] ([facility]) OB Disch REPORT#:[id number] REPORT STATUS: Signed DATE:05/18/22 TIME: 1831 PATIENT: SHARYN RUSSELL UNIT #: [id number] ROOM/BED: [address] : [birth year] AGE: 31 SEX: F ATTEND: Rafael Mcgovern MD ADM AUTHOR: Abel Mcgovern MD * ALL edits or amendments must be made on the [employer] document * Subjective Subjective Admission EGA: Weeks: [...] progress Hospital course: spontaneous labor, repe at LTCS in labor, epidural anesthesia, spinal anesthesia, nml [...] MD on 04/22 06/12 at 1833 RPT #:[id number] END OF REPORT 2022-05-17 [facility] 09:16:00-00:00 [facility] ([facility]) OB Postpart Progr Note REPORT#:[id number] REPORT STATUS: Signed DATE:05/17/22 TIME: 915 PATIENT: SHARYN RUSSELL UNIT #: [id number] ROOM/BED: [address] : [birth year] AGE: 31 SEX: F ATTEND: Rafael Mcgovern MD ADM AUTHOR: Abel Mcgovern MD * ALL edits or amendments must be made on the [employer]/computer document * Subjective Subjective Admission EGA: Weeks: [...] MD on 04/22 05/12 at 0918 RPT #:[id number] END OF REPORT 2022-05-16 [facility] 08:27:00-00:00 [facility] ([facility]) OB Postpart Progr Note REPORT#:[id number] REPORT STATUS: Signed DATE:05/16/22 TIME: 826 PATIENT: SHARYN RUSSELL UNIT #: [id number] ROOM/BED: [address] : [birth year] AGE: 31 SEX: F ATTEND: Rafael Mcgovern MD ADM AUTHOR: Abel Mcgovern MD * ALL edits or amendments must be made on the [employer]/computer document * Subjective Subjective Admission EGA: Weeks: [...] (Auto) (14.5 - 29.7 %) 10.8 L [place] % (Auto) (3.6 - 10.2 %) 9.1 Eos % (Auto) (0.0 - 3.0 %) 0.0 Baso % (Auto) (0.1 - 0.9 %) 0.3 Neut # (Auto) (K/mm3) 14.6 Lymph # (Auto) (K/mm3) 2.0 [place] # (Auto) (K/mm3) 1.7 Eos # (Auto) (K/mm3) 0 Baso # (Auto) (K/mm3) 0.1 Diagnosis, Assessment Plan Diagnosis, Assessment Plan Assessment: nml progress Plan: routine care Electronically Signed by Abel Mcgovern MD on 04/22 04/12 at 0828 RPT #:[id number] END OF REPORT 2022-05-15 [facility] 11:05:00-00:00 [facility] ([facility]) OB Postpart Progr Note REPORT#:[id number] REPORT STATUS: Signed DATE:05/15/22 TIME: 1105 PATIENT: SHARYN RUSSELL UNIT #: [id number] ROOM/BED: [address] : [birth year] AGE: 31 SEX: F ATTEND: Rafael Mcgovern MD ADM AUTHOR: Abel Mcgovern MD * ALL edits or amendments must be made on the el [employer]/computer document * Subjective Subjective Admission EGA: Weeks: [...] 75.0 05/15 0015 70 22 104/56 98 05/15 0000 75.0 05/15 0000 65 22 100/58 98 05/14 2345 77.0 05/14 2345 72 25 103/59 100 05/14 2330 76.0 05/14 2330 69 23 106/58 100 05/14 2315 77.0 05/14 2315 72 20 106/61 100 05/14 2301 82.0 05/14 2301 112/60 05/14 2300 77 28 100 05/14 2245 81.0 05/14 2245 76 18 112/57 100 05/14 2234 75.0 07/24 2234 82 22 114/56 100 07/24 2230 88 100 05/14 2215 98.2 05/14 2215 73.0 05/14 2215 76 18 102/59 100 05/14 1859 117 99 05/14 1854 104 99 05/14 1849 95 98 05/14 1756 79.0 05/14 175 103 116/57 98 PATIENT WEIGHT: Weight (lb): [...] (14.5 - 29.7 %) 10.8 L 16.7 [place] % (Auto) (3.6 - 10.2 %) 9.1 12.0 H Eos % (Auto) (0.0 - 3.0 %) 0.0 0.2 Baso % (Auto) (0.1 - 0.9 %) 0.3 0.5 Neut # (Auto) (K/mm3) 14.6 9.4 Lymph # (Auto) (K/mm3) 2.0 2.3 [place] # (Auto) (K/mm3) 1.7 1.7 Eos # (Auto) (K/mm3) 0 0.03 Baso # (Auto) (K/mm3) 0.1 0.1 Serology Treponema pallidum Ab (NONREACTIVE) NONREACTIVE Hep Bs Antigen (NONREACTIVE) NONREACTIVE Hepatitis C Antibody (NONREACTIVE) NONREACTIVE Hep C Ab Signal/Cutoff (<0.80) 0.04 Diagnosis, Assessment Plan Diagnosis, Assessment Plan Assessment: nml progress Plan: routine care Electronically Signed by Abel Mcgovern MD on 04/22 03/12 at 1106 [facility] #:[id number] END OF REPORT 2022-05-14 [id number] [facility] 22:45:00-00:00 [address] [place], [place] [address] PATIENT NAME: SHARYN RUSSELL ADMIT DATE: 04/22 12/13 ACCOUNT NO: [id number] ROOM NO: .4400 AGE: 31 SEX: F ADMITTING PHYSICIAN: Abel Mcgovern MD ATTENDING PHYSICIAN: Abel Mcgovern MD OPERATION DATE: 05/14/2022 PREOPERATIVE DIAGNOSES: 1. A 35 weeks and 2 days' gestation. 2. Two previous sections. 3. labor. POSTOPERATIVE DIAGNOSES: 1. A 35 weeks and 2 days' gestation. 2. Two previous sections. 3. labor. PROCEDURE PERFORMED: Repeat low transverse akua efrain section. SURGEON: Abel Mcgovern MD. SPUDDER: Luci Ordaz, an personal banking assistant is needed since section is a [...] was retracted with bladder blade. Low transverse [place] rine incision was performed with scalpel. Clear amniotic fluid was noted. Op erator's right hand reached over baby's head and personal banking assistant applied fundal pr essure, baby was easily delivered. Nose and mouth were suctioned. Cord w as doubly clamped and cut between clamps. Baby was passed to the neonatolo gy team. Cord blood was obtained. Placenta manually extracted. Uterus wa s cleaned and remained in the PATIENT NAME: SHARYN RUSSELL [id number] abdominal cavity. The uterine incision was repai red with #1 chromic in running-locking fashion. Hemostasis was achieved with additional gnhlqf-yu-dbmcv suture. Abdo men was cleaned with some [...] x3. Dictated By: Abel Mcgovern MD WT: OP:F.SHANEL/TERELL/NTS Conf#: [id number]#: [id number] Authenticated by Abel Mcgovern MD On 05/15/2022 0 8:57:46 PM Electronically Signed by Abel Mcgovern MD on at 0857 PATIENT NAME: SHARYN RUSSELL [id number] 2022-05-14 [facility] 22:38:00-00:00 [facility] ([facility]) OB Delivery Note REPORT#:[id number] REPORT STATUS: Signed DATE:05/14/22 TIME: 2237 PATIENT: SHARYN RUSSELL UNIT #: [id number] ROOM/BED: LDOR6-A : 92 AGE: 31 SEX: F ATTEND: Rafael Mcgovern MD ADM AUTHOR: Abel Mcgovern MD * ALL edits or amendments must be made on the el [employer]/computer document * OB Delivery Nursing Documentation Review [...] Hemorrhage. Delivery date A: 05/14/22 Delivery time i nfant A: 2125 Birthweight (gm) infant A: 2200 Weight (lb) infant A: Weight (oz) A: Gender infant A: Male 1 minute infant A: 5 minutes A: 10 minutes A: Cord pH obtained infant A: Vacuum time infant A: Vacuum # pulls A: Vacuum # popoffs A: QBL at delivery: __ Provider comments on imported nursing data: [] Pre-delivery GBS status: GBS status: unknown evaluation at delivery: LAND PLANNER Admission EGA: Weeks: 35 EGA at delivery [...] delivery Mother's condition: mother stable Infant's condition: stable in nursery Electronically Signed by Abel Mcgovern MD on 04/22 02/10 at 2241 RPT #:[id number] END OF REPORT 2022-05-14 [facility] 11:56:00-00:00 [facility] ([facility]) OB Antepartum Prog Note REPORT#:[id number] REPORT STATUS: Signed DATE:05/14/22 TIME: 1156 PATIENT: SHARYN RUSSELL UNIT #: [id number] ROOM/BED: [address] : [birth year] AGE: 31 SEX: F ATTEND: Rafael Mcgovern MD ADM AUTHOR: Abel Mcgovern MD * ALL edits or amendments must be made on the [employer]/computer document * Subjective Subjective Admission EGA: Weeks: [...] Result Date Time B/P Mean 88.0 05/14 0745 Pulse Ox 98 05/14 0745 B/P 125/67 05/14 0745 Temp 98.3 05/14 0745 Pulse 96 05/14 0745 Resp 18 05/14 0745 Vital Signs Date Temp Pulse Resp B/P B/P Mean Pulse Ox FiO 2 05/13-05/14 98.3-99.0 75-111 18 105-125/51-67 7 2.0-88.0 [...] cramp more. So I gave h er Lisa, Phenerga 25 mg q 6 hrs w/o improvement. So now I have to give her M agnesium in case she has nonmonitorable ctx. Plan: If [place] makes her lower back pain decreases, will d/c home with it. If not helpful, consider delivery tomorrow Electronically Signed by Abel Mcgovern MD on 04/22 02/10 at 1202 RPT #:[id number] END OF REPORT 2022-05-13 [facility] 22:39:00-00:00 [facility] ([facility]) OB Antepartum Prog Note REPORT#:[id number] REPORT STATUS: Signed DATE:05/13/22 TIME: 2238 PATIENT: SHARYN RUSSELL UNIT #: [id number] ROOM/BED: [address] : 92 AGE: 31 SEX: F ATTEND: Rafael Mcgovern MD ADM AUTHOR: Abel Mcgovern MD * ALL edits or amendments must be made on the el F2G/computer document * Subjective Subjective Admission EGA: Weeks: [...] Ox FiO2 05/13 99.0 75-101 105-117/56-62 76.0-82.0 96-98 PATIENT WEIGHT: Weight (lb): 226 Weight [...] MD on 04/22 01/10 at 2244 RPT #:[id number] END OF REPORT 2022-05-12 [facility] 22:36:00-00:00 [facility] ([facility]) OB Admission / H P REPORT#:[id number] REPORT STATUS: Signed DATE:05/12/22 TIME: 2235 PATIENT: SHARYN RUSSELL UNIT #: [id number] ROOM/BED: [address] : 92 AGE: 31 SEX: F [...] Periph arter ial disease, Pressure ulcer, Prior [place], Schizophrenia, Sickle cell disease, St eroid use, [...] Nephrectomy, PCI, Prostate surgery, Thyroidectomy, Tracheotom y, PAPER CARRIER shunt. Alcohol Use Denies EtOH use Drug Use Denies recreational drugs Smoking status: Smoking status for patients 13 years old or old er: Unknown,if ever smoked Allergies: Coded Allergies: amoxicillin (From AUGMENTIN) (Intermediate, RASH 04/14/22) clavulanic acid (From AUGMENTIN) (Intermediate, RASH 04/14/22) Objective General VS: Last Documented: Result Date Time B/P Mean 78.0 05/12 1938 B/P 107/57 05/12 1938 Pulse 98 05/12 1938 Pulse Ox 98 05/12 1611 Temp 98.3 05/12 0912 Resp 18 05/12 0912 Vital Signs Date Temp Pulse Resp B/P B/P Mean Pulse Ox FiO2 05/12 98.3 75-98 18 107-137/57-75 78.0-96.0 98 [...] pH (5 - 9) 6.0 Ur Specific Enterprise (1.001 - 1.035) 1.019 Urine Protein (NEG) [...] MD on 04/22 12/13 at 2252 RPT #:[id number] END OF REPORT 2022-04-14 [facility] 22:41:00-00:00 [facility] ([facility]) ZENA[place] Evaluation Note REPORT#:[id number] REPORT STATUS: Signed DATE:04/14/22 TIME: 2240 PATIENT: SHARYN RUSSELL UNIT #: [id number] ROOM/BED: : 92 AGE: 31 SEX: F ATTEND: Rafael Mcgovern MD ADM DT: AUTHOR: Abel Mcgovern MD * ALL edits or amendments must be made on the el [employer]/computer document * See Addendum ZENAIDA History Nursing [...] MD on 04/21 04/12 at 2241 RPT #:[id number] END OF REPORT 2022-04-06 [facility] 08:44:00-00:00 [facility] ([facility]) ZENA[place] Evaluation Note REPORT#:[id number] REPORT STATUS: Signed DATE:04/06/22 TIME: 0844 PATIENT: SHARYN RUSSELL UNIT #: [id number] ROOM/BED: : 92 AGE: 31 SEX: F [...] Current : EDC: 06/27/22 EGA (weeks/days): 28 1/ WKS Labs: Blood type: O Rh: positive [...] Status Admin Hydrocodone Bitart/ 1 TAB ONCE 04/05 2245 DC Acetaminophen PO 04/06 0100 2331 (NORCO 5/325 TABLET) Promethazine HCl 25 MG ONCE 04/05 2245 DC 04/05 (PROMETHAZINE HCL) PO 04/06 0100 2331 Allergies Coded Allergies: amoxicillin (From AUGMENTIN) (Intermediate, RASH 03/02/22) clavulanic acid (From AUGMENTIN) (Intermediate, RASH 03/02/22) Objective General VS: Last Documented: Result Date Time B/P Mean 70.0 04/05 2245 B/P 87/63 04/05 2245 Pulse 83 04/05 [...] Mcgovern MD on 03/22 04/12 at 0855 RPT #:[id number] END OF REPORT 2022-03-02 [facility] 23:39:00-00:00 [facility] ([facility]) [place] Evaluation Note REPORT#:[id number] REPORT STATUS: Signed DATE:03/02/22 TIME: 233 PATIENT: SHARYN RUSSELL UNIT #: [id number] ROOM/BED: : 92 AGE: 31 SEX: F [...] contraction since 1 hour before arrival at [facility]. She denies VB, ROM, WEBSTER, scotomata, [...] pH (5 - 9) 7.0 Ur Specific Enterprise (1.001 - 1.035) 1.006 Urine Protein (NEG) [...] Mcgovern MD on 02/19 12/13 at 2349 [facility] #:[id number] END OF REPORT 2021-05-08 [facility] 15:39:00-00:00 [facility] ([facility]) OB Disch REPORT#:[id number] REPORT STATUS: Signed DATE:05/08/21 TIME: 1539 PATIENT: SHARYN RUSSELL UNIT #: [id number] ROOM/BED: 1997 : 92 AGE: 30 SEX: F ATTEND: Rafael Mcgovern MD ADM AUTHOR: Abel Mcgovern MD * ALL edits or amendments must be made on the [employer] document * Subjective Subjective Admission EGA: Weeks: 38 Days: 0 EGA at delivery (wks/days): 38 weeks Status/day: post , post operative Patient reports: Patient reports: No: complaints. Nursing reports: Nursing reports: No: complaints. Objective General VS: Vital Signs Date Temp Pulse Resp B/P B/P Mean Pulse Ox FiO2 05/07-05/08 98.0-98.1 64-71 18 90-103/53-65 Last Documented: Result Date Time B/P 103/05/08 0715 Temp 98.0 05/08 0715 Pulse 71 05/08 0715 Resp 18 05/08 0715 Pulse Ox 99 05/07 0400 B/P Mean 89.0 05/06 1815 PATIENT WEIGHT: Weight (lb): Weight (oz): Weight (kg): 98.837184 Physical Exam Cardiac: normal rhythm Lungs: clear [...] % (Auto) (14.5 - 29.7 %) 18.7 [place] % (Auto) (3.6 - 10.2 %) 4.8 Eos % (Auto) (0.0 - 3.0 %) 0.2 Baso % (Auto) (0.1 - 0.9 %) 0.2 Neut # (Auto) (K/mm3) 9.4 Lymph # (Auto) (K/mm3) 2.3 [place] # (Auto) (K/mm3) 0.6 Eos # (Auto) [...] MD on 04/21 06/11 at 1541 RPT #:[id number] END OF REPORT 2021-05-07 [facility] 13:34:[facility]-00:00 [facility] ([facility]) OB Postpart Progr Note REPORT#:[id number] REPORT STATUS: Signed DATE:05/07/21 TIME: 1334 PATIENT: SHARYN RUSSELL UNIT #: [id number] ROOM/BED: : 92 AGE: 30 SEX: F ATTEND: Rafael Mcgovern MD ADM AUTHOR: Abel Mcgovern MD * ALL edits or amendments must be made on the [employer] document * Subjective Subjective Admission EGA: Weeks: [...] % (Auto) (14.5 - 29.7 %) 18.7 [place] % (Auto) (3.6 - 10.2 %) 4.8 Eos % (Auto) (0.0 - 3.0 %) 0.2 Baso % (Auto) (0.1 - 0.9 %) 0.2 Neut # (Auto) (K/mm3) 9.4 Lymph # (Auto) (K/mm3) 2.3 [place] # (Auto) (K/mm3) 0.6 Eos # (Auto) (K/mm3) 0.03 Baso # (Auto) (K/mm3) 0.0 Other Body Source Membranes Rupture RUPTURED Microbiology: Date/Time Procedure - Status Source Growth 05/06 151 Placental Culture - RECD PLACENTA 05/06 151 Anaerobic Culture - RECD PLACENTA 05/06 1510 Gram Stain - RECD PLACENTA 05/06 1510 Placental Culture - RECD PLACENTA 05/06 1510 Anaerobic Culture - RECD PLACENTA 05/06 1510 Gram Stain - RECD PLACENTA Diagnosis, Assessment Plan Diagnosis, Assessment Plan Assessment: nml progress, acute blood loss anemia, chronic anemia from Plan: routine care Electronically Signed by Abel Mcgovern MD on 04/21 05/11 at 1335 [facility] #:[id number] END OF REPORT 2021-05-06 [id number] [facility] 16:07:00-00:00 [address] [place], [place] [address] PATIENT NAME: SHARYN RUSSELL ADMIT DATE: 04/21 04/11 ACCOUNT NO: [id number] ROOM NO: .1999 AGE: 30 SEX: F ADMITTING PHYSICIAN: Abel Mcgovern MD [...] transverse secti on. SURGEON: Abel Mcgovern MD SPUDDER: Dr. Presley Ortiz, an assist ant needed since section is a complicated procedure requiring 2 person operati on. ANESTHESIA: Spinal and epidural. ANESTHESIOLOGIST: Dr. Bolden. ESTIMATED BLOOD LOSS: 600 mL. All instrument and lap counts correct x3. FINDINGS: Viable female in vertex present ation with nuchal cord [...] scalpel. Clear amn iotic fluid was noted. Union Organiser's right hand reached over baby's head a nd personal banking assistant applied fundal pressure, baby was easily delivered. Nose and mo uth were suctioned. Cord was double clamped and cut between two clamps. Baby was passed to nurse. Cord blood was obtained. Placenta manually extracted. Uterus cleaned inside PATIENT NAME: SHARYN RUSSELL [id number] abdominal cavity. The uterine incision repaired with #1 chromic in running-locking fashion. Hemostasis was achieved with additional ioatqd-kh-cqcne suture. Abdomen was cleaned with moist lap, [...] By: Abel Mcgovern MD WT: OP:FLIZBETH/TERELL/ERVIN Conf#: [id number]/DID#: [id number] Authenticated and Edited by Abel Mcgovern MD On 9:26:37 AM Electronically Signed by Abel Mcgovern MD on at 0929 PATIENT NAME: SHARYN RUSSELL [id number] 2021-05-06 [facility] 16:06:00-00:00 [facility] ([facility]) OB Delivery Note REPORT#:[id number] REPORT STATUS: Signed DATE:05/06/21 TIME: 1606 PATIENT: SHARYN RUSSELL UNIT #: [id number] ROOM/BED: [address] : 92 AGE: 30 SEX: F [...] Medium Risk f or Hemorrhage. Delivery date infant A: 05/06/21 Delivery time A: 1509 Birthweight (gm) A: 2940 Weight (lb) A: Weight (oz) A: Gender infant A: Female 1 minute A: 5 minutes A: 10 minutes A: Cord pH obtained infant A: Vacuum time A: Vacuum # pulls infant A: Vacuum # popoffs infant A: QBL at delivery: __ Provider comments on imported nursing data: [] Pre-delivery GBS status: GBS status: negative [place] evaluation at delivery: [place]ANNER Admission EGA: Weeks: 37 Days: 6 EGA [...] MD on 04/21 04/11 at 1622 RPT #:[id number] END OF REPORT 2021-05-06 [facility] 14:04:00-00:00 [facility] ([facility]) OB Admission / H P REPORT#:[id number] REPORT STATUS: Signed DATE:05/06/21 TIME: 1404 PATIENT: SHARYN RUSSELL UNIT #: [id number] ROOM/BED: [facility] : 92 AGE: 30 SEX: F [...] Periph arter ial disease, Pressure ulcer, Prior [place], Schizophrenia, Sickle cell disease, St eroid use, [...] Nephrectomy, PCI, Prostate surgery, Thyroidectomy, Tracheotom y, PAPER CARRIER shunt. Alcohol Use Denies EtOH use Drug [...] WEIGHT: Weight (lb): Weight (oz): Weight (kg): 98.256943 Physical Exam HEENT: normocephalic w/o injury Cardiac: [...] % (Auto) (14.5 - 29.7 %) 21.3 [place] % (Auto) (3.6 - 10.2 %) 10.3 H Eos % (Auto) (0.0 - 3.0 %) 0.6 Baso % (Auto) (0.1 - 0.9 %) 0.4 Neut # (Auto) (K/mm3) 6.3 Lymph # (Auto) (K/mm3) 2.0 [place] # (Auto) (K/mm3) 1.0 Eos # (Auto) (K/mm3) 0.06 Baso # (Auto) (K/mm3) 0.0 Diagnosis, Assessment Plan Diagnosis, Assessment Plan Assessment/Impression: PROM 37-38 weeks, 6 days, previous C/S, in labor Plan: Electronically Signed by Abel Mcgovern MD on 04/21 04/11 at 1410 RPT #:[id number] END OF REPORT 2021-05-06 [facility] 14:04:00-00:00 [facility] ([facility]) OB Admission / H P REPORT#:[id number] REPORT STATUS: Signed DATE:05/06/21 TIME: 1404 PATIENT: SHARYN RUSSELL UNIT #: [id number] ROOM/BED: : 92 AGE: 30 SEX: F ATTEND: Rafael Mcgovern MD ADM AUTHOR: Abel Mcgovern MD * ALL edits or amendments must be made on the el [employer]/computer document * See Addendum OB History Nursing [...] Periph arter ial disease, Pressure ulcer, Prior [place], Schizophrenia, Sickle cell disease, St eroid use, [...] Nephrectomy, PCI, Prostate surgery, Thyroidectomy, Tracheotom y, PAPER CARRIER shunt. Alcohol Use Denies EtOH use Drug [...] WEIGHT: Weight (lb): Weight (oz): Weight (kg): 98.035584 Physical Exam HEENT: normocephalic w/o injury Cardiac: [...] % (Auto) (14.5 - 29.7 %) 21.3 [place] % (Auto) (3.6 - 10.2 %) 10.3 H Eos % (Auto) (0.0 - 3.0 %) 0.6 Baso % (Auto) (0.1 - 0.9 %) 0.4 Neut # (Auto) (K/mm3) 6.3 Lymph # (Auto) (K/mm3) 2.0 [place] # (Auto) (K/mm3) 1.0 Eos # (Auto) (K/mm3) 0.06 Baso # (Auto) (K/mm3) 0.0 Diagnosis, Assessment Plan Diagnosis, Assessment Plan Assessment/Impression: PROM 37-38 weeks, 6 days, previous C/S, in labor Plan: Electronically Signed by Abel Mcgovern MD on 04/21 04/11 at 1410 Addendum 1: 05/08/21 1544 by Abel Mcgovern MD actually pt is 38 weeks Electronically Signed by Able Mcgovern MD on 04/21 06/11 at 1544 RPT #:[id number] END OF REPORT 2021-04-20 [facility] 20:40:00-00:00 [facility] ([facility]) [place] Evaluation Note REPORT#:[id number] REPORT STATUS: Signed DATE:04/20/21 TIME: 2039 PATIENT: SHARYN RUSSELL UNIT #: [id number] ROOM/BED: : 92 AGE: 30 SEX: F [...] (ZOFRAN 2 MG/ML 4 MG IV 04/20 1916 1929 SYR) Loperamide HCl 2 MG Q8H [...] (Auto) (14.5 - 29.7 %) 5.1 L [place] % (Auto) (3.6 - 10.2 %) 5.6 Eos % (Auto) (0.0 - 3.0 %) 0.3 Baso % (Auto) (0.1 - 0.9 %) 0.4 Neut # (Auto) (K/mm3) 9.6 Lymph # (Auto) (K/mm3) 0.6 [place] # (Auto) (K/mm3) 0.6 Eos # (Auto) (K/mm3) 0.03 Baso # (Auto) (K/mm3) 0.0 Urines Urine Color (YELLOW) YELLOW Urine Appearance (CLEAR) Slightly-Cloudy Urine pH (5 - 9) 5.0 Ur Specific Enterprise (1.001 - 1.035) 1.026 Urine Protein (NEG) [...] Abel Mcgovern MD on 03/24 at 2046 [facility] #:[id number] END OF REPORT 2021-04-01 [facility] 17:34:00-00:00 [facility] ([facility]) [place] Evaluation Note REPORT#:[id number] REPORT STATUS: Signed DATE:04/01/21 TIME: 2394 PATIENT: SHARYN RUSSELL UNIT #: [id number] ROOM/BED: : 92 AGE: 30 SEX: F [...] WEIGHT: Weight (lb): Weight (oz): Weight (kg): 98.104258 Physical Exam HEENT: normocephalic w/o injury Cardiac: [...] Mcgovern MD on 03/22 11/11 at 1740 [facility] #:[id number] END OF REPORT 2019-11-09 [id number] [facility] 08:57:00-00:00 [address] [place], [place] [address] PATIENT NAME: SHARYN RUSSELL ADMIT DATE: ACCOUNT NO: [id number] ROOM NO: F.1997 AGE: 29 SEX: F ADMITTING PHYSICIAN: Mario [...] Ferrer III, MD PATIENT NAME: SHARYN RUSSELL [id number] WT: DS:FLIZBETH/JOSE R/ERVIN Conf#: [id number]/DID#: [id number] Authenticated by Mario Ferrer MD On 11/11/2019 01:00:32 PM Electronically Signed by Mario Ferrer III, MD o n 11/11/19 at 1300 PATIENT NAME: SHARYN RUSSELL [id number] 2019-11-09 [facility] 08:49:00-00:00 [facility] ([facility]) OB Postpart Progr Note REPORT#:[id number] REPORT STATUS: Signed DATE:11/09/19 TIME: 0849 PATIENT: SHARYN RUSSELL UNIT #: [id number] ROOM/BED: : 92 AGE: 29 SEX: F ATTEND: Maroi Ferrer III, MD ADM AUTHOR: Mario Ferrer III, MD * ALL edits or amendments must be made on the [employer] document * Subjective Subjective Admission EGA (wks/days): [...] discussed with: patient, spouse/partner at 0849 RPT #:[id number] END OF REPORT 2019-11-08 [facility] 08:45:00-00:00 [facility] ([facility]) OB Postpart Progr Note REPORT#:[id number] REPORT STATUS: Signed DATE:11/08/19 TIME: 0845 PATIENT: SHARYN RUSSELL UNIT #: [id number] ROOM/BED: : 92 AGE: 29 SEX: F ATTEND: Mario Ferrer III, MD ADM AUTHOR: Mario Ferrer III, MD * ALL edits or amendments must be made on the el [employer]/computer document * Subjective Subjective Admission EGA (wks/days): [...] assi gned to me. at 0848 RPT #:[id number] END OF REPORT 2019-11-06 [id number] [facility] 21:32:00-00:00 [address] [place], [place] [address] PATIENT NAME: SHARYN RUSSELL ADMIT DATE: 10/22 03/10 ACCOUNT NO: [id number] ROOM NO: .1997 AGE: 29 SEX: F ADMITTING PHYSICIAN: Mario Ferrer III, MD ATTENDING PHYSICIAN: Mario eFrrer III, MD OPERATION DATE: 11/06/2019 PREOPERATIVE DIAGNOSES: 1. Postdates intrauterine . 2. Failure to progress. POSTOPERATIVE DIAGNOSIS: Cephalopelvic dispropor tion, occipital posterior, asynclitic. PROCEDURE: Primary low transverse secti on. SURGEON: Mario Ferrer III, MD SPUDDER: Jama Amaya SA ANESTHESIA: Epidural. PROCEDURE IN DETAIL: The patient was taken to e operating room, prepped in the usual sterile [...] with significant asynclitic presentation with a caput. was suctioned. Cord clamped and cut and [...] Monocryl starting in each angle with 2 sqqdua-gp-suaxji for excellent hemostasis. Aisha brittany firmed up nicely after Methergine was [...] Dictated By: Mario Ferrer III, MD WT: OP:FLIZBETH/JOSE R/ERVIN PATIENT NAME: SHARYN RUSSELL [id number] Conf#: [id number]/DID#: [id number] Authenticated by Mario Ferrer MD On 11/09/2019 08:51:31 AM Electronically Signed by Mario Ferrer III, MD o n 11/09/19 at 0851 PATIENT NAME: SHARYN RUSSELL [id number] 2019-11-06 [facility] 19:46:00-00:00 [facility] ([facility]) OB Intrapart Prog Note REPORT#:[id number] REPORT STATUS: Signed DATE:11/06/19 TIME: 1945 PATIENT: SHARYN RUSSELL UNIT #: [id number] ROOM/BED: [address] : 92 AGE: 29 SEX: F ATTEND: Mario Ferrer III, MD ADM AUTHOR: Mario Ferrer III, MD * ALL edits or amendments must be made on the [employer]/computer document * Subjective Subjective Admission EGA (wks/days): [...] discussed with: patient, spouse/partner at 1948 RPT #:[id number] END OF REPORT 2019-11-06 [facility] 18:53:00-00:00 [facility] ([facility]) OB Intrapart Prog Note REPORT#:[id number] REPORT STATUS: Signed DATE:11/06/19 TIME: 185 PATIENT: SHARYN RUSSELL UNIT #: [id number] ROOM/BED: [address] : 92 AGE: 29 SEX: F ATTEND: Mario Ferrer III, MD ADM AUTHOR: Mario Ferrer III, MD * ALL edits or amendments must be made on the el [employer]/computer document * Subjective Subjective Admission EGA (wks/days): [...] 1 Diagnosis, Assessment Plan Assessment: normal FHR nikolaste rn, normal progress of labor, slow progress of labor Plan: continue labor induction, stop oxytocin, d /c pit till adequate epidural level returns Additional notes: If no cx change in 2-3 hours, will proceed to C/ S at 1855 RPT #:[id number] END OF REPORT 2019-11-06 [facility] 15:26:00-00:00 [facility] ([facility]) OB Intrapart Prog Note REPORT#:[id number] REPORT STATUS: Signed DATE:11/06/19 TIME: 1526 PATIENT: SHARYN RUSSELL UNIT #: [id number] ROOM/BED: [address] : 92 AGE: 29 SEX: F ATTEND: Mario Ferrer III, MD ADM AUTHOR: Mario Ferrer III, MD * ALL edits or amendments must be made on the [employer]/computer document * Subjective Subjective Admission EGA (wks/days): [...] level returns Plan discussed with: patient, spouse/partner, joaquin wills at 1529 RPT #:[id number] END OF REPORT 2019-11-06 [facility] 11:58:00-00:00 [facility] ([facility]) OB Intrapart Prog Note REPORT#:[id number] REPORT STATUS: Signed DATE:11/06/19 TIME: 1158 PATIENT: SHARYN RUSSELL UNIT #: [id number] ROOM/BED: [address] : 92 AGE: 29 SEX: F ATTEND: Mario Ferrer III, MD ADM AUTHOR: Mario Ferrer III, MD * ALL edits or amendments must be made on the el [employer]/computer document * Subjective Subjective Admission EGA (wks/days): [...] managmnt, continue labor induction at 1159 RPT #:[id number] END OF REPORT 2019-11-06 [id number] [facility] 09:58:00-00:00 [address] [place], [place] [address] PATIENT NAME: SHARYN RUSSELL ADMIT DATE: 10/22 03/10 ACCOUNT NO: [id number] ROOM NO: [facility] AGE: 29 SEX: F ADMITTING PHYSICIAN: Mario [...] d decreased movement. Last ultrasound done at [facility] showed a 36th percentil e with a [...] Dictated By: Mario Ferrer III, MD WT: HP:F.SHANEL/JOSE R/ERVIN PATIENT NAME: SHARYN RUSSELL [id number] Conf#: [id number]/DID#: [id number] Authenticated by Mario Ferrer MD On 11/06/2019 06:58:09 PM Electronically Signed by Mario Ferrer III, MD o n 11/06/19 at 1858 PATIENT NAME: SHARYN RUSSELL [id number] 2019-11-06 [facility] 07:52:00-00:00 [facility] ([facility]) OB Intrapart Prog Note REPORT#:[id number] REPORT STATUS: Signed DATE:11/06/19 TIME: 0752 PATIENT: SHARYN RUSSELL UNIT #: [id number] ROOM/BED: [facility] : 92 AGE: 29 SEX: F ATTEND: Mario Ferrer III, MD ADM AUTHOR: Mario Ferrer III, MD * ALL edits or amendments must be made on the [employer]/computer document * Subjective Subjective Admission EGA (wks/days): 41 weeks Patient reports: Patient reports: Yes leaking fluid, Yes contractions, Yes normal movement, Yes comfortable with epidural, N o [...] Plan discussed with: patient at 0758 RPT #:[id number] END OF REPORT 2019-11-06 [facility] 05:36:00-00:00 [facility] ([facility]) Clinical Note REPORT#:[id number] REPORT STATUS: Signed DATE:11/06/19 TIME: 0536 PATIENT: SHARYN RUSSELL UNIT #: [id number] ROOM/BED: [address] : 92 AGE: 29 SEX: F ATTEND: Mario Ferrer III, MD ADM AUTHOR: Brenda Pickard DO * ALL edits or amendments must be made on the el F2G/computer document * Clinical Note Note: Germaine Scruggs Hospitalist on duty Request for bedside ultrasound for present ation I performed a limited bedside ultrasound with the following findings: cephalic presentation, visually low fluid volume, posteri or placenta, movements observed at 0538 RPT #:[id number] END OF REPORT"
[2023-06-21] MEDS ORDERED: KETOROLAC 30 MG/ML INJ ONE (17:58)
[2023-06-21] MEDS ORDERED: NA CHLORIDE 0.9% 1,000 ML ONE (17:58)
[2023-06-21 18:30] LABS: Absolute Lymphocytes (CBC) 2.3 K/uL (0.7-4.9); Hematocrit 39.7 % (36.0-45.0); Lymphocytes % 28.6 % (15.3-44.8); MCV 91.3 fL (80-100); MPV 8.5 fL (7.6-11.3); Platelets 292 thou/uL (152-406); RBC Red Blood Cell Count 4.35 M/uL (3.86-4.86)
[2023-06-21 18:36] LABS: SARS-CoV-2 Antigen Rapid Res Negative (Negative)
[2023-06-21 18:37] LABS: Potassium 3.9 mEq/L (3.5-5.1)
[2023-06-21] MEDS ORDERED: MORPHINE 4 MG/ML SYR ONE ×2 (19:37→19:38)
[2023-06-21] MEDS ORDERED: ONDANSETRON 4 MG/2 ML VIAL ONE (19:37)
--- NOTE | 2023-06-21 19:47 | RAD REPORT ---
EXAM DESCRIPTION: CT - Soft Tissue Neck W/Contr CLINICAL HISTORY: Pain;Sore throat;Swelling COMPARISON: No comparisons TECHNIQUE: Thin axial CT images of the neck, performed following intravenous administration of 70 m L Isovue-300. Multiplanar reformats were generated and reviewed. All CT scans are performed using dose optimization technique as appropriate and may include automated exposure control or mA/KV adjustment according to patient size. FINDINGS: Nasopharyngeal tissues are normal in appearance. Fossa Rosenmller are normal. Parapharyngeal fat triangles are symmetric. Tongue base structures are normal. Epiglottis and aryepiglottic folds are normal. Piriform sinuses are well aerated. The vocal cords are normal in appearance. Small mildly prominent lymph nodes throughout the deep cervical regions, not exceeding 1 cm in short axis, likely reactive. Salivary glands are normal in appearance. Upper lung zee are clear. Included intracranial contents are unremarkable. Small mucous retention cysts in the maxillary sinuses. IMPRESSION: No acute abnormality. No suspicious mucosal mass. Mildly prominent lymph nodes throughou t the deep cervical regions, likely reactive.
--- NOTE | 2023-06-21 20:56 | ER ---
Nurse's Notes [facility] Name: Pamela Olguin Age: 32 yrs Sex: Female : 1990 Arrival Date: 06/21/2023 Time: 17:00 Bed 15 Private MD: Diagnosis: Acute upper respiratory infection, unspecified;Cervicalgia Presentation: 06/21 17:13 Chief complaint: Patient states: she woke up this morning with a stiff neck, sore ap3 throat and head ache. patient currently rates pain as a 8/10 on the pain scale. Coronavirus screen: Client presents with at least one sign or symptom that may indicate coronavirus-19. Ebola Screen: No symptoms or risks identified at this time. Initial Sepsis Screen: Does the patient meet any 2 criteria? No. Patient's initial sepsis screen is negative. Does the patient have a suspected source of infection? No. Patient's initial sepsis screen is negative. Risk Assessment: Do you want to hurt yourself or someone else? Patient reports no desire to harm self or others. Onset of symptoms was June 21, 2023. 17:13 Method Of Arrival: Ambulatory ap3 17:13 Acuity: LAURIE 3 ap3 Triage Assessment: 17:15 Headache History: The patient has had previous headaches and this one is similar to ap3 previous episodes. General: Appears in no apparent distress. Behavior is calm, cooperative, appropriate for age. Pain: Complains of pain in neck Pain currently is 8 out of 10 on a pain scale. Pain began this morning. Pain: Also complains of pain when swallowing. EENT: Reports pain when swallowing. Neuro: Level of Consciousness is awake, alert, obeys commands, Oriented to person, place, time, situation, Appropriate for age. Cardiovascular: Patient's skin is warm and dry. Respiratory: Airway is patent Respiratory effort is even, unlabored, Respiratory pattern is regular, symmetrical. Historical: - Allergies: 17:14 No Known Allergies; ap3 - Home Meds: 17:14 munjaro [Active]; ap3 - PMHx: 17:14 None; ap3 - PSHx: 17:14 section; ap3 - Immunization history:: Client reports receiving the 2nd dose of the Covid vaccine. - Social history:: Smoking status: Patient denies any tobacco usage or history of. Screenin:16 [facility] Risk Assessment (Adult) History of falling in the last 3 months, ap3 including since admission No falls in past 3 months (0 pts). Abuse screen: Denies threats or abuse. Nutritional screening: No deficits noted. Tuberculosis screening: No symptoms or risk factors identified. Assessment: 17:30 Reassessment: Patient appears in no apparent distress at this time. Patient and/or db family updated on plan of care and expected duration. Pain level reassessed. Patient is alert, oriented x 3, equal unlabored respirations, skin warm/dry/pink. PATIENT COMPLAINS OF HEADACHE AND BACK OF NECK PAIN. General: Appears in no apparent distress. comfortable, Behavior is calm, cooperative. Pain: Complains of pain in back and neck. Neuro: Level of Consciousness is awake, alert, obeys commands, Oriented to person, place, time, situation. 18:30 Reassessment: Patient appears in no apparent distress at this time. Patient and/or db family updated on plan of care and expected duration. Pain level reassessed. Patient is alert, oriented x 3, equal unlabored respirations, skin warm/dry/pink. 19:42 General: Appears comfortable, Behavior is calm, cooperative. Pain: Complains of pain in ha1 neck Pain does not radiate. Pain currently is 8 out of 10 on a pain scale. Quality of pain is described as pressure. Neuro: Level of Consciousness is awake, alert, obeys commands, Oriented to person, place, time, situation. Cardiovascular: Patient's skin is warm and dry. Respiratory: Airway is patent Respiratory effort is even, unlabored, Respiratory pattern is regular, symmetrical. Derm: Skin is pink, warm \T\ dry. Musculoskeletal: Circulation, motion, and sensation intact. Range of motion: intact in all extremities. 20:00 Reassessment: Patient and/or family updated on plan of care and expected duration. Pain ha1 level reassessed. Patient is alert, oriented x 3, equal unlabored respirations, skin warm/dry/pink. pain 5/10 Patient states feeling better. Patient states symptoms have improved. 21:07 Reassessment: Patient and/or family updated on plan of care and expected duration. Pain ha1 level reassessed. Patient is alert, oriented x 3, equal unlabored respirations, skin warm/dry/pink. Patient denies pain at this time. Patient states feeling better. Patient states symptoms have improved. Vital Signs: 17:13 Pulse 87; Resp 17; Temp 98.1; Pulse Ox 100% ; Weight 97.07 kg; Height 5 ft. 0 in. ; ap3 Pain 8/10; 17:53 BP 132 / 92; Pulse 79; Resp 16; Pulse Ox 100% on R/A; db 18:30 BP 112 / 84; Pulse 76; Resp 16; Pulse Ox 100% on R/A; db 19:30 BP 138 / 100; Pulse 93; Resp 15 S; Pulse Ox 100% on R/A; ha1 20:05 BP 103 / 71; Pulse 74; Resp 16 S; Pulse Ox 100% on R/A; ha1 21:05 BP 107 / 69; Pulse 70; Resp 17 S; Pulse Ox 100% on R/A; ha1 17:13 Body Mass Index 41.79 (97.07 kg, 152.4 cm) ap3 17:13 Pain Scale: Adult ap3 ED Course: 17:03 Patient arrived in ED. rg4 17:07 Shani Partida FNP is PHCP. jh7 17:07 Abraham Barbosa MD is Attending Physician. jh7 17:14 Triage completed. ap3 17:16 Arm band placed on right wrist. ap3 17:30 Patient has correct armband on for positive identification. Bed in low position. Call db light in reach. Side rails up X 1. Pulse ox on. NIBP on. Warm blanket given. 17:45 Inserted saline lock: 20 gauge in right antecubital area, using aseptic technique. db Blood collected. 17:51 Karo Mckeon, RN is Primary Nurse. db 19:02 CT Soft Tissue Neck W/contr In Process Unspecified. EDMS 19:19 PHCP role handed off by Shani Partida FNP sb4 19:19 Orly Cantu PA-C is PHCP. sb4 21:07 No provider procedures requiring assistance completed. IV discontinued, intact, ha1 bleeding controlled, No redness/swelling at site. Pressure dressing applied. 21:08 Provided Education on: follow ups. ha1 Administered Medications: 17:50 Drug: NS 0.9% IV 1000 ml Route: IV; Rate: 1 bolus; Site: right antecubital; db 21:00 Follow up: Response: No adverse reaction; IV Status: Completed infusion; IV Intake: ha1 1000ml 17:50 Drug: Ketorolac IVP 30 mg Route: IVP; Site: right antecubital; db 19:28 Drug: Ondansetron IVP 4 mg Route: IVP; Site: right antecubital; ha1 20:00 Follow up: Response: No adverse reaction ha1 19:30 Drug: morphine IVP or IV 4 mg Route: IVP; Infused Over: 4 mins; Site: right antecubital;ha1 20:00 Follow up: Response: No adverse reaction; Pain is decreased; RASS: Alert and Calm (0) ha1 Medication: 21:08 VIS not applicable for this client. ha1 Intake: 21:00 IV: 1000ml; Total: 1000ml. ha1 Outcome: 20:55 Discharge ordered by . sb4 21:07 Discharged to home ambulatory, with family. ha1 21:07 Condition: stable 21:07 Discharge instructions given to patient, family, Instructed on discharge instructions, follow up and referral plans. medication usage, Demonstrated understanding of instructions, follow-up care, medications, Prescriptions given X 4. 21:08 Patient left the ED. ha1 Signatures: Dispatcher [employer] EDMS Dointa Vail rg4 Ronda Noonan RN RN ap3 Shani Partida FNP FNP 7 Yana Luo RN RN ha1 Karo Mckeon RN RN Orly Schulte, PA-C PAJose sb4 Corrections: (The following items were deleted from the chart) 21:07 20:05 Reassessment: Patient and/or family updated on plan of care and expected ha1 duration. Pain level reassessed. Patient is alert, oriented x 3, equal unlabored respirations, skin warm/dry/pink. pain 5/10 Patient states feeling better. Patient states symptoms have improved. ha1
--- NOTE | 2023-06-21 20:56 | EDPHYS ---
Physician Documentation [facility] Name: Pamela Olguin Age: 32 yrs Sex: Female : 1990 Arrival Date: 06/21/2023 Time: 17:00 Bed 15 Private MD: ED Physician Abraham Barbosa HPI: 06/21 17:15 This 32 yrs old Female presents to ER via Ambulatory with complaints of Stiff Neck, jh7 Headache, Back Pain. 17:15 The patient or guardian complains of stiffness. The symptoms are located at the jh7 cervical spine. Onset: The symptoms/episode began/occurred this morning. Associated signs and symptoms: Pertinent positives: chills, headache, Pertinent negatives: fever. The pain radiates to the left trapezius and right trapezius. 32-year-old female complains of stiff neck, sore throat, headache, and back pain starting this morning. She also reports chills and body aches but denies fever. No PMH.. Historical: - Allergies: 17:14 No Known Allergies; ap3 - Home Meds: 17:14 munjaro [Active]; ap3 - PMHx: 17:14 None; ap3 - PSHx: 17:14 section; ap3 - Immunization history:: Client reports receiving the 2nd dose of the Covid vaccine. - Social history:: Smoking status: Patient denies any tobacco usage or history of. ROS: 17:15 Eyes: Negative for injury, pain, redness, and discharge, Cardiovascular: Negative for jh7 chest pain, palpitations, and edema, Respiratory: Negative for shortness of breath, cough, wheezing, and pleuritic chest pain, Abdomen/GI: Negative for abdominal pain, nausea, vomiting, diarrhea, and constipation, Back: Negative for injury and pain, MS/Extremity: Negative for injury and deformity, Skin: Negative for injury, rash, and discoloration. 17:15 Constitutional: Positive for body aches, chills, Negative for fever. 17:15 ENT: Positive for sore throat. 17:15 Neck: Positive for pain with movement, stiffness, bony tenderness. 17:15 Neuro: Positive for headache, Negative for altered mental status, dizziness, syncope, weakness. 17:15 All other systems are negative. Exam: 17:15 Head/Face: Normocephalic, atraumatic. Eyes: Pupils equal round and reactive to light, jh7 extra-ocular motions intact. Lids and lashes normal. Conjunctiva and sclera are non-icteric and not injected. Cornea within normal limits. Periorbital areas with no swelling, redness, or edema. Cardiovascular: Regular rate and rhythm with a normal S1 and S2. No gallops, murmurs, or rubs. Normal PMI, no JVD. No pulse deficits. Respiratory: Lungs have equal breath sounds bilaterally, clear to auscultation and percussion. No rales, rhonchi or wheezes noted. No increased work of breathing, no retractions or nasal flaring. Back: No spinal tenderness. No costovertebral tenderness. Full range of motion. Skin: Warm, dry with normal turgor. Normal color with no rashes, no lesions, and no evidence of cellulitis. MS/ Extremity: Pulses equal, no cyanosis. Neurovascular intact. Full, normal range of motion. Neuro: Awake and alert, GCS 15, oriented to person, place, time, and situation. Cranial nerves II-XII grossly intact. Motor strength 5/5 in all extremities. Sensory grossly intact. Cerebellar exam normal. Normal gait. 17:15 Constitutional: The patient appears alert, awake, uncomfortable. 17:15 ENT: Posterior pharynx: erythema, that is moderate. 17:15 Neck: External neck: tenderness, that is moderate, of the left mid cervical area, right mid cervical area and lower cervical area, ROM/movement: pain, that is mild, with any movement. 17:15 Neck: Lymph nodes: lymphadenopathy is appreciated, anterior cervical nodes. Vital Signs: 17:13 Pulse 87; Resp 17; Temp 98.1; Pulse Ox 100% ; Weight 97.07 kg; Height 5 ft. 0 in. ; ap3 Pain 8/10; 17:53 BP 132 / 92; Pulse 79; Resp 16; Pulse Ox 100% on R/A; db 18:30 BP 112 / 84; Pulse 76; Resp 16; Pulse Ox 100% on R/A; db 19:30 BP 138 / 100; Pulse 93; Resp 15 S; Pulse Ox 100% on R/A; ha1 20:05 BP 103 / 71; Pulse 74; Resp 16 S; Pulse Ox 100% on R/A; ha1 21:05 BP 107 / 69; Pulse 70; Resp 17 S; Pulse Ox 100% on R/A; ha1 17:13 Body Mass Index 41.79 (97.07 kg, 152.4 cm) ap3 17:13 Pain Scale: Adult ap3 MDM: 17:07 Patient medically screened. [facility] 06/22 00:52 Data reviewed: vital signs, nurses notes, lab test result(s), radiologic studies, and sb4 as a result, I will discharge patient. Counseling: I had a detailed discussion with the patient and/or guardian regarding the historical points, exam findings, and any diagnostic results supporting the discharge/admit diagnosis, lab results, radiology results, to return to the emergency department if symptoms worsen or persist or if there are any questions or concerns that arise at home. Transition of care: Care assumed from Shani MURPHY. 06/21 17:18 Order name: Strep; Complete Time: 19:08 [facility] 06/21 17:18 Order name: Flu; Complete Time: 19:08 [facility] 06/21 17:18 Order name: SARS RAPID; Complete Time: 18:44 [facility] 06/21 17:18 Order name: [place] Screen Profile; Complete Time: 19:08 [facility] 06/21 17:18 Order name: CBC with Diff; Complete Time: 18:35 [facility] 06/21 17:18 Order name: BMP; Complete Time: 18:44 [facility] 06/21 18:54 Order name: Throat Culture [facility] 06/21 17:18 Order name: CT Soft Tissue Neck W/contr; Complete Time: 19:48 [facility] Administered Medications: 06/21 17:50 Drug: NS 0.9% IV 1000 ml Route: IV; Rate: 1 bolus; Site: right antecubital; db 21:00 Follow up: Response: No adverse reaction; IV Status: Completed infusion; IV Intake: ha1 1000ml 17:50 Drug: Ketorolac IVP 30 mg Route: IVP; Site: right antecubital; db 19:28 Drug: Ondansetron IVP 4 mg Route: IVP; Site: right antecubital; ha1 20:00 Follow up: Response: No adverse reaction ha1 19:30 Drug: morphine IVP or IV 4 mg Route: IVP; Infused Over: 4 mins; Site: right antecubital;ha1 20:00 Follow up: Response: No adverse reaction; Pain is decreased; RASS: Alert and Calm (0) ha1 Disposition: 06/22 11:55 Co-signature as Attending Physician, Abraham Barbosa MD I reviewed the patient's care rn provided by the Advanced Practice Provider and agree with the diagnosis and treatment plan. Disposition Summary: 06/21/23 20:55 Discharge Ordered Location: Home sb4 Problem: new sb4 Symptoms: have improved sb4 Condition: Stable sb4 Diagnosis - Acute upper respiratory infection, unspecified sb4 - Cervicalgia sb4 Followup: sb4 - With: Private Physician - When: As needed - Reason: Recheck today's complaints, Continuance of care, Re-evaluation by your physician Discharge Instructions: - Discharge Summary Sheet sb4 - Acute Back Pain, Adult sb4 - Upper Respiratory Infection, Adult, [id number] sb4 Forms: - Medication Reconciliation Form sb4 - Thank You Letter sb4 - Antibiotic Education sb4 - Prescription Opioid Use sb4 - Patient Portal Instructions sb4 - Leadership Thank You Letter sb4 Prescriptions: - ketorolac 10 mg Oral tablet - take 1 tablet by ORAL route every 4 to 6 hours for 3 days as needed for pain; sb4 do not exceed 4 doses per 24 hrs; 12 tablet; Refills: 0, Product Selection Permitted - Augmentin 875-125 mg Oral Tablet - take 1 tablet by ORAL route every 12 hours for 10 days; 20 tablet; Refills: 0, sb4 Product Selection Permitted - Cyclobenzaprine 10 mg Oral Tablet - take 1 tablet by ORAL route every 8 hours As needed; 30 tablet; Refills: 0, sb4 Product Selection Permitted - Medrol (Chiki) 4 mg Oral Tablets, Dose Pack - take 1 tablet by ORAL route as directed - follow package instructions; 1 sb4 packet; Refills: 0, Product Selection Permitted Signatures: Dispatcher [employer] Abraham Vicente MD MD rn Prokisch, Amanda RN RN ap3 Shani Partida FNP FNP [facility] Yana uLo RN RN ha1 Karo Mckeon, RN RN Orly Schulte PA-C PAJose sb4
[2023-06-21 22:11] VITALS: TEMP 98.1; O2SAT 100
[2023-06-21 22:30] VITALS: BP 107/69
== END 2023-06-21 21:08 | disposition home or self-care (01) ==
LOC: ER 17:00
DX: J06.9 Acute upper respiratory infection, unspecified (principal); M54.2 Cervicalgia; Z20.822 Contact with and (suspected) exposure to COVID-19
CPT/HCPCS: 96361; 87070; 85025; 80048; 36415; 86308; 87081; 87804 ×2; 70491; 96375; 96374; 99284; 87811; Q9967; J2405; J7030

== ENCOUNTER 2024-02-26 16:39 | Emergency (ER) | payer BC ==
--- OUTSIDE RECORDS SUMMARY | 2024-02-26 16:44 | XMS REPORT | Continuity of Care Document ---
Author Name Unknown Address [address] [facility] [address] [place] [address] [facility] Address [address] [facility] [place] [address] Care Team Providers Care It Technical Support Specialist Name Role Phone PCP, PATIENT DOES NOT HAVE A Primary Care Physic Abel Mcfadden Attending Clinician Unavailable Onur Cantu Attending Clinician Mario Boone Attending Clinician Unavailable KULDIP BEAR Attending Clinician UnavailKULDIP Vasquez Attending Clinician UnavailREKHA Huntley Attending Clinician UnavailRekha Huntley DO Attending Clinician [phone] Mallory SHERMAN, Eufemia Attending Clinician Unavailable GROVER MONSON Attending Clinician Unavailable Grover Monson DO Attending Clinician [phone] Doctor Unassigned, Gautier Attending Clinician U brendaailandrew TOBY OSORIO Attending Clinician Unavailable Troy SHERMAN, Mimi Sparks Attending Clinician UnavailMoon Winter Attending Clinician + [phone] Liam Zimmerman Attending Clinician + [phone] LIAM CHAPA Attending Clinician Unavailable NILSON REED Attending Clinician Unavailwillie Mendoza RN, Archana Attending Clinician Unavailable [facility] Attending Clinician Unav ailable Maia Toledo Attending Clinician + [phone] MAIA HAHN Attending Clinician Unavailable Abel Mcgovern Admitting Clinician Unavailable KNOW, DOES_NOT Admitting Clinician Unavailable RON HOGUE Admitting Clinician Unavailable Mario Ferrer Admitting Clinician Unavailable Payers Payer Name Policy Type Policy Number Effective Date Expirati on Date Source [employer] [facility] MEDICA[employer] [id number] 2020 00:00:00 [facility] [id number] 2023 00:00:00 [employer] [id number] 2022 00:00:00 Problems Condition Name Condition Details Condition Category Status Onset Date Resolution Date Last Treatment Date Treating Clinician Comments Source Obesity (BMI 30-39.9) Obesity (BMI 30-39.9) Disease Active 07-17 00:00: 00 [facility] Ectopic without intrauteri ne , unspecifie d location Ectopic without intrauteri ne , unspecifie d location Disease Active 07-16 00:00: 00 [facility] Inappropri ate change in quantitati ve hCG in early Inappropri ate change in quantitati ve hCG in early Disease Active 06-12 00:00: 00 [facility] Acanthosis nigricans Acanthosis nigricans Disease Active 05-29 00:00: 00 [facility] Personal history of gastric banding Personal history of gastric banding Disease Active 05-29 00:00: 00 [facility] BMI 37.0-37.9, adult BMI 37.0-37.9, adult Disease Active 2018-0 05-29 00:00: 00 [facility] Allergies, Adverse Reactions, Alerts Allergy Name Allergy Type Status Severity Reaction(s) Onset Date Inactive Date Treating Clinician Comments Source clavulan ic acid DA Active MO RASH 2021-0 6-24 00:00: 00 [facility] amoxicil renea DA Active MO RASH 0 6-24 00:00: 00 [facility] clavulan ic acid DA Active MO RASH 0 5-12 00:00: 00 [facility] amoxicil renea DA Active MO RASH 0 5-12 00:00: 00 [facility] amoxicil renea DA Active MO RASH 0 6-11 00:00: 00 [facility] clavulan ic acid DA Active MO 2020-0 6-11 00:00: 00 [facility] amoxicil renea DA Active MO 2020-0 6-11 00:00: 00 [facility] clavulan ic acid DA Active MO RASH 2020-0 6-11 00:00: 00 [facility] clavulan ic acid DA Active MO RASH 2019-10 00:00: 00 [facility] amoxicil renea DA Active MO RASH 2019-10 00:00: 00 [facility] clavulan ic acid DA Active MO 2019-10 00:00: 00 [facility] amoxicil renea DA Active MO 2019-10 00:00: 00 [facility] clavulan ic acid DA Active MO 2018-10 00:00: 00 [facility] amoxicil renea DA Active MO 2018-10 00:00: 00 [facility] amoxicil renea DA Active MO RASH 2018-10 00:00: 00 [facility] clavulan ic acid DA Active MO RASH 2018-10 2-28 00:00: 00 [facility] Amoxicil renea-Pot Clavulan ate Propensi ty to adverse reaction s Active Hives 05-29 00:00: 00 [facility] AMOXICIL RENEA-POT CLAVULAN ATE DRUG Active Hives 05-29 00:00: 00 [facility] NO KNOWN ALLERGIE S Drug Class Active [facility] Social History Social Habit Start Date Stop Date Quantity Comments Source History SDOH Alcohol Frequency [facility] History SDOH Alcohol Std Drinks [facility] History SDOH Alcohol Binge [facility] Gender identity [facility] Alcohol intake 2023-06-21 00:00:00 2023-06-21 00:00:00 Current drinker of alcohol (finding) [facility] Exposure to SARS-CoV-2 (event) 2023-03-09 00:00:00 2023-03-19 07:24:00 Not sure [facility] History of Social function 2019-05-01 00:00:00 2019-05-01 00:00:00 [facility] Tobacco use and exposure 2018-05-29 00:00:00 2018-05-29 00:00:00 Smokeless tobacco non-user [facility] Alcohol Comment 2018-05-29 00:00:00 2018-05-29 00:00:00 weekends / social [facility] Sex Assigned At 1990 00:00:00 1990 00:00:00 [facility] Smoking Status Start Date Stop Date Source Never smoked tobacco [facility] Medications Ordered Medication Name Filled Medication Name Start Date Stop Date Current Medication? Ordering Clinician Indication Dosage Frequency Signature (SIG) Comments Components Source polymyxin B sulf-trimet hoprim 10,000 unit- 1 mg/mL ophthalmic drops 05-10 00:00: 00 Yes [id number] 1[drp] Place 1 Drop in left eye every 4 (four) hours. [facility] ketorolac (TORADOL) injection 30 mg 03-19 13:30: 00 03-19 12:55 :00 No 30mg 30 mg, Slow IV Push, ONCE, 1 dose, On Sun03/19/23 at 0830, Routine [facility] NaCl 0.9% (NS) bolus infusion 1,000 mL 03-19 13:30: 00 03-19 13:52 :00 No 1000mL at 999 mL/hr, 1,000 mL, IV Infusion, ONCE, 1 dose, On Sun03/19/23 at 0830, [facility] diphenhydrA MINE (BENADRYL) injection 25 mg 03-19 12:45: 00 03-19 12:55 :00 No 25mg 25 mg, Slow IV Push, ONCE, 1 dose, On Sun03/19/23 at 0745, STAT [facility] metoclopram faheem HCl (REGLAN) injection 10 mg 03-19 12:45: 00 03-19 12:55 :00 No 10mg 10 mg, Slow IV Push, ONCE, 1 dose, [facility] Sun[facility]/19/23 [facility] 0745[facility] famot[facility] (PEPCID (PF)) injection 20 mg 06-18 20:30: 00 06-18 19:33 :00 No 20mg 20 mg, Slow IV Push, ONCE, 1 dose, On Sun06/18/22 at 1530, Routine [facility] NaCl 0.9% (NS) bolus infusion 1,000 mL 06-18 20:15: 00 06-18 20:13 :00 No 1000mL at 999 mL/hr, 1,000 mL, IV Infusion, ONCE, 1 dose, On Sun06/18/22 at 1515, [facility] maalox:diph enhydrAMINE :lidocaine 2 % viscous 1:1:1 (FIRST-MOUT HWASH BLM) oral suspension 15 mL 06-18 20:00: 00 06-18 20:08 :00 No 15mL 15 mL, Oral, ONCE, 1 dose, On Sun06/18/22 at 1500, Routine [facility] ketorolac (TORADOL) injection 30 mg 06-18 19:30: 00 06-18 19:32 :00 No 30mg 30 mg, Slow IV Push, ONCE, 1 dose, On 06/18/22 at 1430, [facility] ondansetron (ZOFRAN (PF)) injection 4 mg 06-18 19:30: 00 06-18 19:33 :00 No 4mg 4 mg, Slow IV Push, ONCE, 1 dose, On 06/18/22 at 1430, [facility] ondansetron 4 mg disintegrat ing tablet 06-18 00:00: 00 Yes [id number] 4mg Take 1 tablet by mouth every 8 (eight) hours as needed for Nausea and Vomiting (N/V). [facility] meloxicam 7.5 mg tablet 2019-10 00:00: 00 Yes [id number] 7.5mg Take 1 tablet by mouth daily. [facility] ondansetron (ZOFRAN ODT) 4 mg disintegrat ing tablet 05-24 00:00: 00 05-30 04:59 :00 No [id number] 4mg Take 1 tablet by mouth every 8 (eight) hours as needed for Nausea and Vomiting (N/V) for up to 5 days. [facility] HYDROcodone -acetaminop hen 5-325 mg tablet 07-17 00:00: 00 Yes 1{tbl} Take 1 tablet by mouth every 6 (six) hours as needed for Pain (scale 4-6) or Pain (scale 7-10). [facility] Vital Signs Vital Name Observation Time Observation Value Comments S ourgali Systolic blood pressure 2023-06-21 18:00:00 137 mm[Hg] [facility] Diastolic blood pressure 2023-06-21 18:00:00 93 mm[Hg] [facility] Heart rate 2023-06-21 18:00:00 116 /min [facility] Body temperature 2023-06-21 18:00:00 37.11 Rosa M [facility] Respiratory rate 2023-06-21 18:00:00 16 /min [facility] Body height 2023-06-21 18:00:00 152.4 cm [facility] Body weight 2023-06-21 18:00:00 97.07 kg [facility] BMI 2023-06-21 18:00:00 41.79 kg/m2 [facility] Oxygen saturation in Arterial blood by Pulse oximetry 2023-06-21 18:00:00 100 /min [facility] Systolic blood pressure 2023-05-10 20:17:17 132 mm[Hg] [facility] Diastolic blood pressure 2023-05-10 20:17:17 81 mm[Hg] [facility] Heart rate 2023-05-10 20:17:17 90 /min [facility] Respiratory rate 2023-05-10 20:17:17 16 /min [facility] Oxygen saturation in Arterial blood by Pulse oximetry 2023-05-10 20:17:17 100 /min [facility] Body temperature 2023-05-10 19:34:05 36.89 [facility] Body height 2023-05-10 19:20:00 152.4 cm [facility] Body weight 2023-05-10 19:20:00 102.059 kg [facility] BMI 2023-05-10 19:20:00 43.94 kg/m2 [facility] Systolic blood pressure 2023-03-19 13:53:00 125 mm[Hg] [facility] Diastolic blood pressure 2023-03-19 13:53:00 83 mm[Hg] [facility] Heart rate 2023-03-19 13:53:00 55 /min [facility] Respiratory rate 2023-03-19 13:53:00 14 /min [facility] Oxygen saturation in Arterial blood by Pulse oximetry 2023-03-19 13:53:00 98 /min [facility] Body temperature 2023-03-19 12:26:00 37.22 Rosa M [facility] Body height 2023-03-19 12:26:00 152.4 cm [facility] Body weight 2023-03-19 12:26:00 102.059 kg [facility] BMI 2023-03-19 12:26:00 43.94 kg/m2 [facility] Systolic blood pressure 2022-06-18 20:00:00 113 mm[Hg] [facility] Diastolic blood pressure 2022-06-18 20:00:00 76 mm[Hg] [facility] Heart rate 2022-06-18 20:00:00 64 /min [facility] Respiratory rate 2022-06-18 20:00:00 15 /min [facility] Oxygen saturation in Arterial blood by Pulse oximetry 2022-06-18 20:00:00 99 /min [facility] Body temperature 2022-06-18 19:13:00 36.89 Rosa M [facility] Body height 2022-06-18 19:13:00 152.4 cm [facility] Body weight 2022-06-18 19:13:00 95.709 kg [facility] BMI 2022-06-18 19:13:00 41.21 kg/m2 [facility] Systolic blood pressure 2020-11-23 04:00:00 125 mm[Hg] [facility] Diastolic blood pressure 2020-11-23 04:00:00 75 mm[Hg] [facility] Heart rate 2020-11-23 04:00:00 79 /min [facility] Body temperature 2020-11-23 04:00:00 37 Rosa M [facility] Respiratory rate 2020-11-23 04:00:00 16 /min [facility] Oxygen saturation in Arterial blood by Pulse oximetry 2020-11-23 04:00:00 98 /min [facility] Body weight 2020-11-23 02:18:00 87.091 kg [facility] BMI 2020-11-23 02:18:00 37.50 kg/m2 [facility] Systolic blood pressure 2020-11-23 04:00:00 125 mm[Hg] [facility] Diastolic blood pressure 2020-11-23 04:00:00 75 mm[Hg] [facility] Heart rate 2020-11-23 04:00:00 79 /min [facility] Body temperature 2020-11-23 04:00:00 37 Rosa M [facility] Respiratory rate 2020-11-23 04:00:00 16 /min [facility] Oxygen saturation in Arterial blood by Pulse oximetry 2020-11-23 04:00:00 98 /min [facility] Body weight 2020-11-23 02:18:00 87.091 kg [facility] BMI 2020-11-23 02:18:00 37.50 kg/m2 [facility] Systolic blood pressure 2020-09-07 21:14:00 124 mm[Hg] [facility] Diastolic blood pressure 2020-09-07 21:14:00 84 mm[Hg] [facility] Heart rate 2020-09-07 21:14:00 77 /min [facility] Body height 2020-09-07 21:14:00 152.4 cm [facility] Body weight 2020-09-07 21:14:00 84.369 kg [facility] BMI 2020-09-07 21:14:00 36.33 kg/m2 [facility] Systolic blood pressure 2020-09-07 21:14:00 124 mm[Hg] [facility] Diastolic blood pressure 2020-09-07 21:14:00 84 mm[Hg] [facility] Heart rate 2020-09-07 21:14:00 77 /min [facility] Body height 2020-09-07 21:14:00 152.4 cm [facility] Body weight 2020-09-07 21:14:00 84.369 kg [facility] BMI 2020-09-07 21:14:00 36.33 kg/m2 [facility] Systolic blood pressure 2020-05-24 20:55:00 133 mm[Hg] [facility] Diastolic blood pressure 2020-05-24 20:55:00 86 mm[Hg] [facility] Heart rate 2020-05-24 20:53:00 63 /min [facility] Body temperature 2020-05-24 20:53:00 37 Rosa M [facility] Respiratory rate 2020-05-24 20:53:00 18 /min [facility] Body height 2020-05-24 20:53:00 152.4 cm [facility] Body weight 2020-05-24 20:53:00 83.008 kg [facility] BMI 2020-05-24 20:53:00 35.74 kg/m2 [facility] Oxygen saturation in Arterial blood by Pulse oximetry 2020-05-24 20:53:00 98 /min [facility] Procedures Procedure Date / Time Performed Performing Clinician Source CONSENT/REFUSAL FOR DIAGNOSIS AND TREATMENT 2023-06-21 18:20:39 Doctor Unassigned, Gautier [facility] CONSENT/REFUSAL FOR DIAGNOSIS AND TREATMENT 2023-05-10 19:15:29 Doctor Unassigned, Gautier [facility] CONSENT/REFUSAL FOR DIAGNOSIS AND TREATMENT 2023-03-19 12:24:31 Doctor Unassigned, Gautier [facility] POCT TEST 2022-06-18 19:35:00 Anne Costa ra [facility] LIPASE 2022-06-18 19:25:00 Rekha Costa [facility] COMP. METABOLIC PANEL ([id number]) 2022-06-18 19:25:00 Rekha Costa [facility] CBC WITH DIFF 2022-06-18 19:25:00 [facility]ek[facility] 2022-06-18 19:25:00 Rekha Costa Un [facility] CONSENT/REFUSAL FOR DIAGNOSIS AND TREATMENT 2022-06-18 19:06:07 Doctor Unassigned, Gautier [facility] [id number] 2022-05-14 00:00:00 [facility] [id number] 2021-05-06 00:00:00 [facility] [id number] 2021-05-06 00:00:00 [facility] URINALYSIS 2020-11-23 03:41:[address] [facility] RAPID STREP SCREEN FOR GROUP A 2020-11-23 02:44:00 Moon Lenz [facility] ADC,CLC OR LCC ONLY - INFLUENZA A & B DIRECT ANTIGEN 2020-11-23 02:44:00 Moon Lenz [facility] NOTICE OF PRIVACY PRACTICES 2020-11-23 02:15:37 Doctor Unassigned, Gautier [facility] CONSENT/REFUSAL FOR DIAGNOSIS AND TREATMENT 2020-11-23 02:15:15 Doctor Unassigned, Gautier [facility] NO SHOW OR MISSED APPOINTMENT POLICY ACKNOWLEDGEMENT 2020-09-07 20:57:09 Doctor Unassigned, Gautier [facility] [id number] 2019-11-06 00:00:00 JOSE R [facility] Encounters Start Date/Time End Date/Time Encounter Type Admission Type Attending Clinicians Care Facility Care Department Encounter ID Source 2022-06-23 12:30:00 Inpatient Abel Davis [facility] [id number] [facility] 2022-06-21 10:00:00 Inpatient Doretha Davisamos [facility] [id number] [facility] 2022-05-12 09:58:00 Inpatient Abel Gandhi [facility] OBPP [id number] [facility] 2021-08-20 21:07:55 Emergency [facility] [id number] [facility] 2021-05-18 10:30:00 Inpatient Daquan Daviswalter [facility] CARE [id number] [facility] 2021-01-04 10:00:00 Inpatient Doretha Mcgovernamos [facility] RADI [id number] [facility] 2020-09-28 10:37:00 Inpatient Onur Paula [facility] [id number] [facility] 2020-09-13 07:45:00 Inpatient Onur Paula [facility] [id number] [facility] 2019-11-05 18:18:00 Inpatient Mario Chappell [facility] LD [id number] [facility] 2019-10-31 19:15:00 Inpatient Mario Ferrer [facility] ZENAIDA [id number] [facility] 2024-02-26 15:00:00 2024-02-26 15:00:00 Outpatient KULDIP FUENTES OGECHUKWU [facility] [id number] [facility] 2023-06-21 13:29:00 2023-06-21 14:03:00 Emergency REKHA COLEMAN [facility] ERT [id number] [facility] 2023-06-21 13:29:00 2023-06-21 14:03:00 Emergency Rekha Costa [facility] [id number] 350.1.13.10 4.2.7.2.686 [id number] [facility] 2023-06-21 00:00:00 2023-06-21 00:00:00 Letter (Out) Eufemia Tejada [facility] [id number] 350.1.13.10 4.2.7.2.686 [id number] [facility] 2023-05-10 14:22:00 2023-05-10 15:28:00 Emergency GROVER MCKEON [facility] ERT [id number] [facility] 2023-05-10 14:22:00 2023-05-10 15:28:00 Emergency Grover Monson [facility] [id number] 350.1.13.10 4.2.7.2.686 [id number] [facility] 2023-03-19 07:27:00 2023-03-19 08:55:00 Emergency REKHA COLEMAN [facility] ERT [id number] [facility] 2023-03-19 07:27:00 2023-03-19 08:55:00 Emergency Rekha Costa [facility] [id number] 350.1.13.10 4.2.7.2.686 [id number] [facility] 2022-06-18 14:16:00 2022-06-18 15:19:00 Emergency REKHA COLEMAN [facility] ERT [id number] [facility] 2022-06-18 14:16:00 2022-06-18 15:19:00 Emergency Rekha Costa [facility] [id number] 350.1.13.10 4.2.7.2.686 [id number] [facility] 2022-06-18 00:00:00 2022-06-18 00:00:00 Orders Only Doctor Unassigned, Gautier [facility] [id number] 350.1.13.10 4.2.7.2.686 [id number] [facility] 2022-05-12 09:58:00 2022-05-18 19:37:00 Inpatient EM Aebl Mcgovern [facility] OBPP [id number] [facility] 2022-04-14 14:48:00 2022-04-14 18:15:00 [facility] [id number] [facility] 2022-04-14 14:48:00 2022-04-14 18:15:00 Emergency EM Abel Mcgovern [facility] [id number] [facility] 2022-04-05 21:56:00 2022-04-06 01:00:00 Emergency EL Abel Mcgovern [facility] ZENAIDA [id number] [facility] 2022-04-05 21:56:00 2022-04-06 01:00:00 Emergency EL ChrisAbel [facility] [id number] [facility] 2022-03-02 14:10:00 2022-03-02 16:25:00 Emergency EM Chris, Daquanndamos [facility] ZENAIDA [id number] [facility] 2022-03-02 14:10:00 2022-03-02 16:25:00 Emergency EM Chris, Chundla [facility] [id number] [facility] 2021-05-06 13:00:00 2021-05-08 13:22:00 Inpatient EM Chris, Daquanndamos [facility] OBPP [id number] [facility] 2021-05-06 14:52:00 2021-05-06 14:52:00 Outpatient ChrisAbel bates [facility]O [id number] [facility] 2021-04-20 16:09:00 2021-04-20 19:42:00 Emergency EM Chris, [facility] Troyndla [facility] ZENAIDA [id number] [facility] 2021-04-01 13:02:00 2021-04-01 13:39:00 Emergency EM Chris, Daquanndamos [facility] ZENAIDA [id number] [facility] 2021-01-24 09:30:00 2021-01-24 09:30:00 Outpatient [facility] [id number] [facility] 2020-12-27 09:40:00 2020-12-27 09:40:00 Outpatient TOBY ARIAS [facility] [id number] [facility] 2020-11-23 00:00:00 2020-11-23 00:00:00 Letter (Out) Mimi Simmons [facility] [id number] 350.1.13.10 4.2.7.2.686 [id number] [facility] 2020-11-23 00:00:00 2020-11-23 00:00:00 Letter (Out) TroyMimi estes Bridger [facility] 1.2.840.114 350.1.13.10 4.2.7.2.686 [id number] 2020-11-22 20:20:00 2020-11-22 22:26:00 [facility] 1.2.840.114 350.1.13.10 4.2.7.2.686 [id number] [facility] 2020-11-22 20:20:00 2020-11-22 22:26:00 Emergency Moon Lenz [facility] 1.2.840.114 350.1.13.10 4.2.7.2.686 [id number] 2020-09-07 15:52:38 2020-09-07 23:59:00 Hospital Encounter [facility] [place] 1.2.840.114 350.1.13.10 4.2.7.2.686 [id number] [facility] 2020-09-07 15:52:38 2020-09-07 23:59:00 Hospital Encounter [facility] [place] 1.2.840.114 350.1.13.10 4.2.7.2.686 [id number] 2020-09-07 15:15:00 2020-09-07 15:15:00 Outpatient R EDUARD [facility] [id number] [facility] 2020-09-07 14:57:36 2020-09-07 15:12:36 Office Visit [facility] [place] 1.2.840.114 350.1.13.10 4.2.7.2.686 [id number] [facility] 2020-09-07 14:57:36 2020-09-07 15:12:36 Office Visit Michelle Chapatt Ber[facility] 1.840.114 350.1.13.10 4.2.7.2.686 [id number] 2020-09-07 00:00:00 2020-09-07 00:00:00 Orders Only Doctor Unassigned, Gautier [facility] 1.840.114 350.1.13.10 4.2.7.2.686 [id number] [facility] 2020-09-06 14:30:00 2020-09-06 14:30:00 Outpatient NILSON FARIA [facility] [id number] [facility] 2020-05-25 00:00:00 2020-05-25 00:00:00 Telephone Archana Mendoza [facility] 1.840.114 350.1.13.10 4.2.7.2.686 [id number] [facility] 2020-05-24 15:45:59 2020-05-24 16:12:06 [facility] P[facility] 1..840.114 350.1.13.10 4.2.7.2.686 [id number] [facility] 2020-05-24 15:40:00 2020-05-24 16:12:06 [id number] 2019-11-06 11:17:00 2019-11-06 11:17:00 [id number] [facility] 2019-10-29 08:30:00 2019-10-29 08:30:00 Outpatient Mario Ferrer [facility] [id number] [facility] HOSPITAL [facility] 2019-10-20 22:55:00 2019-10-21 01:55:00 Emergency EM Mario Ferrer [facility] ZENAIDA [id number] [facility]LY [facility] Results Test Description Test Time Test Comments Results Result Co mments Source [facility] 19:48:09* Test Item Value Reference Range Interpretation Comme nts LIPASE (test code = 6474200271) 138 U/L 0-220 Lab Interpretation (test cod e = 87395-3) Normal [facility] [id number] 19:40:05* Test Item Value Reference Range Interpretation Comme nts WBC (test code = 6690-2) See_Comment [Automated messa ge] The system which generated this result transmitted reference range: 4.30 - 11.10 10*3/?L. The reference range was not used to interpret this result as normal/abnormal. RBC (test code = 789-8) See_Comment [Automated messa ge] The system which generated this result transmitted reference range: 3.93 - 5.25 10*6/?L. The reference range was not used to interpret this result as normal/abnormal. HGB (test code = 718-7) 11.6 g/dL 11.6-15 HCT (test code = 4544-3) 37.2 % 35.7-45.2 MCV (test code = 787-2) 88.6 fL 80.6-95.5 MCH (test code = 785-6) 27.6 pg 25.9-32.8 MCHC (test code = 786-4) 31.2 g/dL 31.6-35.1 L RDW-SD (test code = 43133-4) 45.1 fL 39-49.9 RDW-CV (test code = 788-0) 14.1 % 12-15.5 PLT (test code = 777-3) See_Comment [Automated messa ge] The system which generated this result transmitted reference range: 166 - 358 10*3/?L. The reference range was not used to interpret this result as normal/abnormal. MPV (test code = 19563-3) 10.2 fL 9.5-12.9 NRBC/100 WBC (test code = 5381411840) See_Comment [Automated me ssage] The system which generated this result transmitted reference range: 0.0 - 10.0 /100 WBCs. The reference range was not used to interpret this result as normal/abnormal. NRBC x10^3 (test code = 8120771876) See_Comment [Automated messa ge] The system which generated this result transmitted reference range: 10*3/?L. The reference range was not used to interpret this result as normal/abnormal. GRAN MAT (NEUT) % (test code = 770-8) 54.5 % IMM GRAN % (test code = 0546160105) 0.20 % LYMPH % (test code = 736-9) 26.9 % MONO % (test code = 5905-5) 11.2 % EOS % (test code = 713-8) 6.1 % BASO % (test code = 706-2) 1.1 % GRAN MAT x10^3(ANC) (test code = 8034811075) 3.61 10*3/uL 1.88-7.09 IMM GRAN x10^3 (test code = 9717745533) 0-0.06 LYMPH x10^3 (test code = 731-0) 1.78 10*3/uL 1.32-3.29 MONO x10^3 (test code = 742-7) 0.74 10*3/uL 0.33-0.92 EOS x10^3 (test code = 711-2) 0.40 10*3/uL 0.03-0.39 H BASO x10^3 (test code = 704-7) 0.07 10*3/uL 0.01-0.07 Lab Interpretation (test code = 97887-8) Abnormal [facility] [id number] 19:35:00* Test Item Value Reference Range Interpretation Comme nts POCT PREG (test code = 1605) Negative On board controls acceptable with C Line (test code = 3574) Present POCT PREG LOT # (test code = 3575) [id number] POCT PREG TEST DATE ( test code = 3576) 08-21-2023 Lab Interpretation (test cod e = 88019-3) Normal [facility] W/AUTO [id number] 10:11:00* Test Item Value Reference Range Interpretation Comme nts WHITE BLOOD CELL (test code = WBC) [...] pg 27.3-33.9 N MEAN CELL HGB CONCETRATION ( test code = MCHC) 32.5 gm/dL 32.0-34.2 N RED CELL DISTRIBUTION WIDTH (test code = RDW) 12.8 % 12.2-16.3 N PLATELET COUNT (test code = PLT) 271 K/mm3 134-363 N MEAN PLATELET VOLUME (test c ode = MPV) 10.8 fL 9.2-12.7 N NEUTROPHIL % (test code = NT%) 78.1 [...] = BA#) 0.1 K/mm3 RBC MORPHOLOGY REQUIRED (arnol t code = RBCM) NORMAL NORMAL PLATELET MORPHOLOGY REQUIRED (test code = PLTMR) NORMAL NORMAL AG HEPATITIS B [id number] 21:13:00* Test Item Value Reference Range Interpretation Comme nts AG HEPATITIS B SURFACE (test code = HBSAG) NONREACTIVE NONREACTIVE AB HEPATITIS C [id number] 21:13:00* Test Item Value Reference Range Interpretation Comme nts AB HEPATITIS C (test code = HCVAB) NONREACTIVE NONREACTIVE A SIGNAL TO CUTOFF (test code = CUTOFF) 0.04 <0.80 N AB [id number] 21:13:00* Test Item Value Reference Range Interpretation Comme nts AB TREPONEMA (test code = TREPAB) NONREACTIVE NONREACTIVE COMPREHENSIVE METABOLIC [id number] 20:12:00* Test Item Value Reference Range Interpretation Comme nts SODIUM (test code = NA) 138 mEq/L 135-145 N POTASSIUM (test code = K) 3.8 mEq/L 3.5-5.0 N CHLORIDE (test code = CL) 105 mEq/L 100-115 N CARBON DIOXIDE (test code = CO2) 21 mEq/L 22-31 L ANION GAP (test code = GAP) 15.70 10-20 N GLUCOSE (test code = GLU) 121 mg/dL 65-110 H BLOOD UREA NITROGEN (test co de = BUN) 7 mg/dL 7-18 N GLOMERULAR FILTRATION RATE ( test code = GFR) 118 ml/min >60 N CREATININE (test code = CREAT) 0.6 mg/dL 0.5-1.0 N TOTAL PROTEIN (test code = PROT) 5.9 gm/dL 6.3-8.2 L ALBUMIN (test code = ALB) 2.6 gm/dL 3.4-4.8 L CALCIUM (test code = CA) 7.7 mg/dL 8.4-10.2 L BILIRUBIN TOTAL (test code = BILT) 0.2 mg/dL 0.2-1.0 N SGOT/AST (test code = AST) 11 units/L 15-37 L SGPT/ALT (test code = ALT) 12 units/L 12-78 N ALKALINE PHOSPHATASE TOTAL ( test code = ALKP) 129 units/L 46-116 H CBC W/AUTO [id number] 19:46:00* Test Item Value Reference Range Interpretation Comme nts WHITE BLOOD CELL (test code = WBC) [...] pg 27.3-33.9 N MEAN CELL HGB CONCETRATION ( test code = MCHC) 32.2 gm/dL 32.0-34.2 N RED CELL DISTRIBUTION WIDTH (test code = RDW) 12.8 % 12.2-16.3 N PLATELET COUNT (test code = PLT) 282 K/mm3 134-363 N MEAN PLATELET VOLUME (test c ode = MPV) 10.7 fL 9.2-12.7 N NEUTROPHIL % (test code = NT%) 67.0 [...] code = BA#) 0.1 K/mm3 BILE ACIDS [id number] 09:10:00* Test Item Value Reference Range Interpretation Comme nts BILE ACIDS TOTAL (test code = BILEACT) 2.5 umol/L 0.0-10.0 Performed At: [address] [id number] Sanjai MD Ph:[phone] RUPTURE OF [id number] 15:52:00* Test Item Value Reference Range Interpretation Comme nts RUPTURE OF MEMBRANES (test c ode = ROM) NON-RUPTURED COVID 19 Asymptomatic IH [id number] 11:02:00* Test Item Value Reference Range Interpretation Comme nts COVID 19 Asymptomatic IH AG (test code = COVNONPUIAG) NEGATIVE NEGATIVE This test has be en authorized only for the detection ofproteins from SARS-CoV-2, not for any other viruses orpathogens. Negative results should be treated as presumptive andconfirmed with a molecular assay, if necessary for patientmanagement. Negative results do not rule out COVID-19 andshould not be used as the sole basis for treatment orpatient management decisions, including infection controldecisions. Negative results should be considered in thecontext of a patient's recent exposures, history and thepresence of clinical signs and symptoms consistent withCOVID-19. This test has not been FDA cleared or approved; the test hasbeen authorized by FDA under an Emergency Use Authorization(EUA) for use by laboratories certified under the CLIA thatmeet the requirements to perform moderate, high or waivedcomplexity tests. This test is authorized for use at thePoint of Care (POC), i.e., in patient care settingsoperating under a CLIA Certificate of Waiver, Certificate ofCompliance, or Certificate of Accreditation. This test is only authorized for the duration of thedeclaration that circumstances exist justifying theauthorization of emergency use of in vitro diagnostic testsfor detection and/or diagnosis of COVID-19 under Uahgcnj761(b)(1) of the Act, 21 U.S.C. 360bbb-3(b)(1), unless theauthorization is terminated or revoked sooner. URINALYSIS [id number] 10:51:00* Test Item Value Reference Range Interpretation Comme nts UA COLOR (test code = COLU) YELLOW YELLOW UA APPEARANCE (test code = APPU) Slightly-Cloudy CLEAR UA GLUCOSE DIPSTICK (test code = DGLUU) NEGATIVE NEG UA BILIRUBIN DIPSTICK (test code = BILU) NEGATIVE NEG UA KETONE DIPSTICK (test cod e = KETU) 2+ NEG A UA SPECIFIC GRAVITY (test code = SGU) 1.019 1.001-1.035 N UA BLOOD DIPSTICK (test code = ZULEIMA) NEG NEG UA PH DIPSTICK (test code = DEBBY) 6.0 5-9 UA PROTEIN DIPSTICK (test code = PROU) NEGATIVE NEG UA UROBILINIOGEN DIPSTICK (test code = URO) NEGATIVE mg/dL NEG UA NITRITE DIPSTICK (test code = DEANGELO) NEG NEG UA LEUKOCYTE ESTERASE DIPSTICK (test code = LEUU) NEG NEG UA WBC (test code = WBCU) 0-2 #/hpf NONE SEEN UA RBC (test code = RBCU) 0-2 #/hpf NONE SEEN UA EPITHELIAL CELLS (test code = EPIU) FEW #/HPF RARE-FEW UA BACTERIA (test code = BACU) RARE /HPF RARE-FEW UA MUCUS (test code = MUCU) RARE NONE SEEN URINE SAMPLE: CLEAN CATCHCOMPREHENSIVE METABOLIC [id number] 12:46:00* Test Item Value Reference Range Interpretation Comme nts SODIUM (test code = NA) 137 mEq/L 135-145 N POTASSIUM (test code = K) 3.9 mEq/L 3.5-5.0 N CHLORIDE (test code = CL) 106 mEq/L 100-115 N CARBON DIOXIDE (test code = CO2) 21 mEq/L 22-31 L ANION GAP (test code = GAP) 14.00 10-20 N GLUCOSE (test code = GLU) 85 mg/dL 65-110 N BLOOD UREA NITROGEN (test co de = BUN) 5 mg/dL 7-18 L GLOMERULAR FILTRATION RATE ( test code = GFR) 146 ml/min >60 N CREATININE (test code = CREAT) 0.5 mg/dL 0.5-1.0 N TOTAL PROTEIN (test code = PROT) 5.8 gm/dL 6.3-8.2 L ALBUMIN (test code = ALB) 2.6 gm/dL 3.4-4.8 L CALCIUM (test code = CA) 8.1 mg/dL 8.4-10.2 L BILIRUBIN TOTAL (test code = BILT) 0.5 mg/dL 0.2-1.0 N SGOT/AST (test code = AST) 11 units/L 15-37 L SGPT/ALT (test code = ALT) 9 units/L 12-78 L ALKALINE PHOSPHATASE TOTAL ( test code = ALKP) 138 units/L 46-116 H URINALYSIS [id number] 12:32:00* Test Item Value Reference Range Interpretation Comme nts UA COLOR (test code = COLU) YELLOW YELLOW UA APPEARANCE (test code = APPU) CLEAR CLEAR UA GLUCOSE DIPSTICK (test co de = DGLUU) NEGATIVE NEG UA BILIRUBIN DIPSTICK (test code = BILU) NEGATIVE NEG UA KETONE DIPSTICK (test cod e = KETU) 2+ NEG A UA SPECIFIC GRAVITY (test co de = SGU) 1.014 1.001-1.035 N UA BLOOD DIPSTICK (test code = ZULEIMA) NEG NEG UA PH DIPSTICK (test code = DEBBY) 7.0 5-9 UA PROTEIN DIPSTICK (test co de = PROU) NEGATIVE NEG UA UROBILINIOGEN DIPSTICK (t est code = URO) 2.0 mg/dL NEG UA NITRITE DIPSTICK (test co de = DEANGELO) NEG NEG UA LEUKOCYTE ESTERASE DIPSTI CK (test code = LEUU) NEG NEG UA WBC (test code = WBCU) 0-2 #/hpf NONE SEEN UA RBC (test code = RBCU) 0-2 #/hpf NONE SEEN UA EPITHELIAL CELLS (test co de = EPIU) RARE #/HPF RARE-FEW UA BACTERIA (test code = BACU) RARE /HPF RARE-FEW UA MUCUS (test code = MUCU) 1+ NONE SEEN URINE SAMPLE: CLEAN CATCHCBC W/AUTO [id number] 12:28:00* Test Item Value Reference Range Interpretation Comme nts WHITE BLOOD CELL (test code = WBC) [...] pg 27.3-33.9 N MEAN CELL HGB CONCETRATION ( test code = MCHC) 32.4 gm/dL 32.0-34.2 N RED CELL DISTRIBUTION WIDTH (test code = RDW) 12.9 % 12.2-16.3 N PLATELET COUNT (test code = PLT) 255 K/mm3 134-363 N MEAN PLATELET VOLUME (test c ode = MPV) 10.7 fL 9.2-12.7 N NEUTROPHIL % (test code = NT%) 69.4 [...] = BA#) 0.0 K/mm3 RBC MORPHOLOGY REQUIRED (arnol t code = RBCM) NORMAL NORMAL PLATELET MORPHOLOGY REQUIRED (test code = PLTMR) NORMAL NORMAL RUPTURE OF [id number] 17:27:00* Test Item Value Reference Range Interpretation Comme nts RUPTURE OF MEMBRANES (test c ode = ROM) NON-RUPTURED COVID 19 Asymptomatic IH [id number] 17:26:00* Test Item Value Reference Range Interpretation Comme nts COVID 19 Asymptomatic IH AG (test code = COVNONPUIAG) NEGATIVE NEGATIVE This test has be en authorized only for the detection ofproteins from SARS-CoV-2, not for any other viruses orpathogens. Negative results should be treated as presumptive andconfirmed with a molecular assay, if necessary for patientmanagement. Negative results do not rule out COVID-19 andshould not be used as the sole basis for treatment orpatient management decisions, including infection controldecisions. Negative results should be considered in thecontext of a patient's recent exposures, history and thepresence of clinical signs and symptoms consistent withCOVID-19. This test has not been FDA cleared or approved; the test hasbeen authorized by FDA under an Emergency Use Authorization(EUA) for use by laboratories certified under the CLIA thatmeet the requirements to perform moderate, high or waivedcomplexity tests. This test is authorized for use at thePoint of Care (POC), i.e., in patient care settingsoperating under a CLIA Certificate of Waiver, Certificate ofCompliance, or Certificate of Accreditation. This test is only authorized for the duration of thedeclaration that circumstances exist justifying theauthorization of emergency use of in vitro diagnostic testsfor detection and/or diagnosis of COVID-19 under Nmaqdoy711(b)(1) of the Act, 21 U.S.C. 360bbb-3(b)(1), unless theauthorization is terminated or revoked sooner. URINALYSIS [id number] 14:34:00* Test Item Value Reference Range Interpretation Comme nts UA COLOR (test code = COLU) STRAW YELLOW UA APPEARANCE (test code = APPU) Slightly-Cloudy CLEAR UA GLUCOSE DIPSTICK (test code = DGLUU) NEGATIVE NEG UA BILIRUBIN DIPSTICK (test code = BILU) NEGATIVE NEG UA KETONE DIPSTICK (test cod e = KETU) NEGATIVE NEG UA SPECIFIC GRAVITY (test code = SGU) 1.006 1.001-1.035 N UA BLOOD DIPSTICK (test code = ZULEIMA) NEG NEG UA PH DIPSTICK (test code = DEBBY) 7.0 5-9 UA PROTEIN DIPSTICK (test code = PROU) NEGATIVE NEG UA UROBILINIOGEN DIPSTICK (test code = URO) NEGATIVE mg/dL NEG UA NITRITE DIPSTICK (test code = DEANGELO) NEG NEG UA LEUKOCYTE ESTERASE DIPSTICK (test code = LEUU) NEG NEG UA WBC (test code = WBCU) 0-2 #/hpf NONE SEEN UA RBC (test code = RBCU) 0-2 #/hpf NONE SEEN UA EPITHELIAL CELLS (test code = EPIU) FEW #/HPF RARE-FEW UA BACTERIA (test code = BACU) FEW /HPF RARE-FEW UA MUCUS (test code = MUCU) RARE NONE SEEN URINE SAMPLE: CLEAN CATCHComment On arrival if delivery is not imminentCB W/AUTO [id number] 09:02:00* Test Item Value Reference Range Interpretation Comme nts WHITE BLOOD CELL (test code = WBC) [...] pg 27.3-33.9 N MEAN CELL HGB CONCETRATION ( test code = MCHC) 31.9 gm/dL 32.0-34.2 L RED CELL DISTRIBUTION WIDTH (test code = RDW) 12.3 % 12.2-16.3 N PLATELET COUNT (test code = PLT) 222 K/mm3 134-363 N MEAN PLATELET VOLUME (test c ode = MPV) 11.0 fL 9.2-12.7 N NEUTROPHIL % (test code = NT%) 75.3 [...] = BA#) 0.0 K/mm3 RBC MORPHOLOGY REQUIRED (arnol t code = RBCM) NORMAL NORMAL PLATELET MORPHOLOGY REQUIRED (test code = PLTMR) NORMAL NORMAL RUPTURE OF [id number] 03:32:00* Test Item Value Reference Range Interpretation Comme nts RUPTURE OF MEMBRANES (test c ode = ROM) RUPTURED AB HIV 1 20:55:00* Test Item Value Reference Range Interpretation Comme nts AB HIV 1 2 (test code = TKU11BY) NONREACTIVE INDEX NONREACTIVE IS CONSENT FORM SIGNED FOR HIV TESTING? NAG HEPATITIS B [id number] 20:55:00* Test Item Value Reference Range Interpretation Comme nts AG HEPATITIS B SURFACE (test code = HBSAG) NON REACTIVE INDEX NonReactive Previously reported result: NONREACTIVE INDEXEdited by: HORACIO on 05/06/21:5HBSAG prev. reported as:NONREACTIVE . . IS CONSENT FORM SIGNED FOR HIV TESTING? NAB HEPATITIS C [id number] 20:55:00* Test Item Value Reference Range Interpretation Comme nts AB HEPATITIS C (test code = HCVAB) NON REACTIVE INDEX NON REACT. A Previously reported result: NONREACTIVE INDEXEdited by: HORACIO on 05/06/21:2054HCVAB prev. reported as:NONREACTIVE . . SIGNAL TO CUTOFF (test code = CUTOFF) <0.02 <0.80 N IS CONSENT FORM SIGNED FOR HIV TESTING? NAB [id number] 20:55:00* Test Item Value Reference Range Interpretation Comme nts AB TREPONEMA (test code = TREPAB) NONREACTIVE NONREACTIVE IS CONSENT FORM SIGNED FOR HIV TESTING? NAB HIV 1 20:55:00* Test Item Value Reference Range Interpretation Comme nts AB HIV 1 2 (test code = LSX28UB) NONREACTIVE INDEX NONREACTIVE A IS CONSENT FORM SIGNED FOR HIV TESTING? NAG HEPATITIS B [id number] 20:55:00* Test Item Value Reference Range Interpretation Comme nts AG HEPATITIS B SURFACE (test code = HBSAG) NON REACTIVE INDEX NonReactive IS CONSENT FORM SIGNED FOR HIV TESTING? NAB HEPATITIS [id number] 20:55:00* Test Item Value Reference Range Interpretation Comme nts AB HEPATITIS C (test code = HCVAB) NON REACTIVE INDEX NON REACT. IS CONSENT FORM SIGNED FOR HIV TESTING? NAG HEPATITIS B [id number] 15:32:00* Test Item Value Reference Range Interpretation Comme nts AG HEPATITIS B SURFACE (test code = HBSAG) NONREACTIVE NONREACTIVE IS CONSENT FORM SIGNED FOR HIV TESTING? NAB HEPATITIS C [id number] 15:32:00* Test Item Value Reference Range Interpretation Comme nts AB HEPATITIS C (test code = HCVAB) NONREACTIVE NONREACTIVE SIGNAL TO CUTOFF (test code = CUTOFF) <0.02 <0.80 N IS CONSENT FORM SIGNED FOR HIV TESTING? NAB [id number] 15:32:00* Test Item Value Reference Range Interpretation Comme nts AB TREPONEMA (test code = TREPAB) NONREACTIVE NONREACTIVE IS CONSENT FORM SIGNED FOR HIV TESTING? NAB HIV 1 15:32:00* Test Item Value Reference Range Interpretation Comme nts AB HIV 1 2 (test code = AVZ05OU) NONREACTIVE IS CONSENT FORM SIGNED FOR HIV TESTING? NCOMPREHENSIVE METABOLIC [id number] 14:12:00* Test Item Value Reference Range Interpretation Comme nts SODIUM (test code = NA) 138 mEq/L 135-145 N POTASSIUM (test code = K) 4.2 mEq/L 3.5-5.0 N CHLORIDE (test code = CL) 108 mEq/L 100-115 N CARBON DIOXIDE (test code = CO2) 25 mEq/L 22-31 N ANION GAP (test code = GAP) 9.30 10-20 L GLUCOSE (test code = GLU) 77 mg/dL 65-110 N BLOOD UREA NITROGEN (test co de = BUN) 8 mg/dL 7-18 N GLOMERULAR FILTRATION RATE ( test code = GFR) 119 ml/min >60 N CREATININE (test code = CREAT) 0.6 mg/dL 0.5-1.0 N TOTAL PROTEIN (test code = PROT) 6.3 gm/dL 6.3-8.2 N ALBUMIN (test code = ALB) 2.7 gm/dL 3.4-4.8 L CALCIUM (test code = CA) 8.0 mg/dL 8.4-10.2 L BILIRUBIN TOTAL (test code = BILT) 0.4 mg/dL 0.2-1.0 N SGOT/AST (test code = AST) 13 units/L 15-37 L SGPT/ALT (test code = ALT) 17 units/L 12-78 N ALKALINE PHOSPHATASE TOTAL ( test code = ALKP) 149 units/L 46-116 H CBC W/AUTO [id number] 13:39:00* Test Item Value Reference Range Interpretation Comme nts WHITE BLOOD CELL (test code = WBC) [...] pg 27.3-33.9 N MEAN CELL HGB CONCETRATION ( test code = MCHC) 32.1 gm/dL 32.0-34.2 N RED CELL DISTRIBUTION WIDTH (test code = RDW) 12.4 % 12.2-16.3 N PLATELET COUNT (test code = PLT) 277 K/mm3 134-363 N MEAN PLATELET VOLUME (test c ode = MPV) 11.1 fL 9.2-12.7 N NEUTROPHIL % (test code = NT%) 66.5 [...] = BA#) 0.0 K/mm3 RBC MORPHOLOGY REQUIRED (arnol t code = RBCM) NORMAL NORMAL PLATELET MORPHOLOGY REQUIRED (test code = PLTMR) NORMAL NORMAL COMPREHENSIVE METABOLIC [id number] 18:42:00* Test Item Value Reference Range Interpretation Comme nts SODIUM (test code = NA) 139 mEq/L 135-145 N POTASSIUM (test code = K) 3.7 mEq/L 3.5-5.0 N CHLORIDE (test code = CL) 105 mEq/L 100-115 N CARBON DIOXIDE (test code = CO2) 21 mEq/L 22-31 L ANION GAP (test code = GAP) 17.10 10-20 N GLUCOSE (test code = GLU) 79 mg/dL 65-110 N BLOOD UREA NITROGEN (test co de = BUN) 7 mg/dL 7-18 N GLOMERULAR FILTRATION RATE ( test code = GFR) 147 ml/min >60 N CREATININE (test code = CREAT) 0.5 mg/dL 0.5-1.0 N TOTAL PROTEIN (test code = PROT) 6.0 gm/dL 6.3-8.2 L ALBUMIN (test code = ALB) 2.6 gm/dL 3.4-4.8 L CALCIUM (test code = CA) 8.2 mg/dL 8.4-10.2 L BILIRUBIN TOTAL (test code = BILT) 0.6 mg/dL 0.2-1.0 N SGOT/AST (test code = AST) 19 units/L 15-37 N SGPT/ALT (test code = ALT) 13 units/L 12-78 N ALKALINE PHOSPHATASE TOTAL ( test code = ALKP) 125 units/L 46-116 H HEMOL. NOTIFIED CJURINALYSIS [id number] 17:37:00* Test Item Value Reference Range Interpretation Comme nts UA COLOR (test code = COLU) YELLOW YELLOW UA APPEARANCE (test code = APPU) Slightly-Cloudy CLEAR UA GLUCOSE DIPSTICK (test code = DGLUU) NEGATIVE NEG UA BILIRUBIN DIPSTICK (test code = BILU) NEGATIVE NEG UA KETONE DIPSTICK (test cod e = KETU) 2+ NEG A UA SPECIFIC GRAVITY (test code = SGU) 1.026 1.001-1.035 N UA BLOOD DIPSTICK (test code = ZULEIMA) NEG NEG UA PH DIPSTICK (test code = DEBBY) 5.0 5-9 UA PROTEIN DIPSTICK (test code = PROU) 1+ NEG A UA UROBILINIOGEN DIPSTICK (test code = URO) NEGATIVE mg/dL NEG UA NITRITE DIPSTICK (test code = DEANGELO) NEG NEG UA LEUKOCYTE ESTERASE DIPSTICK (test code = LEUU) NEG NEG UA WBC (test code = WBCU) 0-2 #/hpf NONE SEEN UA RBC (test code = RBCU) 0-2 #/hpf NONE SEEN UA EPITHELIAL CELLS (test code = EPIU) MODERATE #/HPF RARE-FEW A UA BACTERIA (test code = BACU) RARE /HPF RARE-FEW UA MUCUS (test code = MUCU) 1+ NONE SEEN URINE SAMPLE: CLEAN CATCHCBC W/AUTO [id number] 17:14:00* Test Item Value Reference Range Interpretation Comme nts WHITE BLOOD CELL (test code = WBC) [...] pg 27.3-33.9 N MEAN CELL HGB CONCETRATION ( test code = MCHC) 32.2 gm/dL 32.0-34.2 N RED CELL DISTRIBUTION WIDTH (test code = RDW) 13.5 % 12.2-16.3 N PLATELET COUNT (test code = PLT) 243 K/mm3 134-363 N MEAN PLATELET VOLUME (test c ode = MPV) 10.9 fL 9.2-12.7 N NEUTROPHIL % (test code = NT%) 87.3 [...] = BA#) 0.0 K/mm3 RBC MORPHOLOGY REQUIRED (arnol t code = RBCM) NORMAL NORMAL PLATELET MORPHOLOGY REQUIRED (test code = PLTMR) NORMAL NORMAL - US PREG AFTER [id number] 11:21:00 [facility] LUKASRaghav : 1990 Sex: F Patient Name: SHARYN RUSSELL LUKASRaghav Unit No: [id number] EXAMS: CPT CODE: [id number] US PREG AFTER 1ST TRI [id number] [facility] [address] [place], [place] [address] OBSTETRICAL ULTRASOUND REPORT -- Pat. Name: SHARYN RUSSELL Pat. No: [id number] Study Date: 01/04/2021 10:00am , Age: 13 1990, 30 Pregnancies: 3, Para 1 LMP: 08/13/2020 GA by LMP: 20w4d GA by US: 20w0d GA Selected: 20w4d (LMP) DANNA: 05/20/2021 Referring MD: ABEL MCGOVERN Environmental Program Manager: Harriet Montiel RDMS, RVT CPT4: [id number] Admitting MD: ABEL MCGOVERN Hist/Ind: SCAN 1 ANATOMY MEASUREMENTS AGE GROWTH EVALUATION Measurement GA Range Srce %for GA Ratios ----- ---- ------- BPD 4.6 cm 19w6d (02o5c-68r3x) Hadl BPD 17% FL/BPD 0.72 HC 17.6 cm 20w0d (18w3d- 21w4d) Hadl HC 33% FL/AC 0.22 APD 4.8 cm APD HC/AC 1.16 (1.06 - 1.24) TAD 4.9 cm TAD CI 0.76 (0.70 - 0.86) AC 15.2 cm 20w1d (17c3m-20f8o) Hadl AC 40% FL 3.3cm 20w0d (86y0p-16l4f) Hadl FL 36% HL 3.1 cm 20w2d (52k9o-22s5l) Monster HL 45% GA for sonogram 20w0d (47a1n-35q0s) Weight Estimate: based on (BPD,HC,AC,FL) Hadlock Weight: [...] movements seen Four chamber heart observed [facility] NAME[facility] PHYS: Abel Plummer MD [address] : 1990 AGE: 30 SEX: F [place] [address] LOC: [facility] PHONE #: [phone] EXAM DATE: 01/04/2021 STATUS: REG CLI FAX #: [phone] RAD NO: Page 1 Signed Report (CONTINUED) Patient Name: SHARYN RUSSELL Unit No: [id number] EXAMS: CPT CODE: [id number] US PREG AFTER 1ST TRI 05247 (Continued) Left ventricular outflow tract (LVOT) seen [...] Montiel RDMS, RVT Probe: Trnscrbd D/ (1121) ShaniquaCER Orig Print D/T: S: 01/04/2021 (1121) [facility] NAME[facility]US[facility] PHYS: Abel Plummer MD [address] : 1990 AGE: 30 SEX: F [place] [address] LOC: [facility] PHONE #: [phone] EXAM DATE: 01/04/2021 STATUS: REG CLI FAX #: [phone] RAD NO: Page 2 Signed Report Patient Name: SHARYN RUSSELL Unit No: [id number] EXAMS: CPT CODE: [id number] US PREG AFTER 1ST TRI 96032 (Continued) [facility] NAME: SHARYN RUSSELL Radiology Department PHYS: Abel Plummer MD [address] : 1990 AGE: 30 SEX: F [place], [place] [address] LOC: Hector.RAD PHONE #: [phone] EXAM DATE: 01/04/2021 STATUS: REG CLI FAX #: [phone] RAD NO: Page 3 Signed [id number] 04:03:00* Test Item Value Reference Range Interpretation Comme nts APPEARANCE (test code = 5437496314) Hazy Clear A COLOR (test code = 2544383515) Yellow Yellow PH (test code = 4389850589) 4.8-8.0 SP GRAVITY (test code = 9890005081) 1.003-1.030 GLU U QUAL (test code = 3318016865) Normal Normal BLOOD (test code = 5817142542) Negative Negative KETONES (test code = 4106699728) Negative Negative PROTEIN (test code = 2887-8) Negative Negative UROBILIN (test code = 1928478122) Normal Normal BILIRUBIN (test code = 2594322876) Negative Negative NITRITE (test code = 3769149330) Negative Negative LEUK MARVIN (test code = 4012019350) 25/uL Negative A RBC/HPF (test code = 2147407991) See_Comment [Automated [employer] ge] The system which generated this result transmitted reference range: 0 - 3 HPF. The reference range was not used to interpret this result as normal/abnormal. WBC/HPF (test code = 6140486560) See_Comment [Automated [employer] ge] The system which generated this result transmitted reference range: 0 - 5 HPF. The reference range was not used to interpret this result as normal/abnormal. BACTERIA (test code = 3717046512) Few Negative A MUCOUS (test code = 2649178684) Slight Negative LPF A SQ EPITH (test code = 6211784966) HPF Lab Interpretation (test code = 89475-0) [facility]normal [facility] - INFLUENZA A & B DIRECT [id number] 03:17:00* Test Item Value Reference Range Interpretation Comme nts Influenza A (test code = 24502-5) Negative Negative Influenza B (test code = 27688-0) Negative Negative Lab Interpretation (test cod e = 75006-2) Normal [facility] [place] [facility] GROUP [id number] 03:15:00* Test Item Value Reference Range Interpretation Comme nts Streptococcus pyogenes (grou p A) antigen (test code = 47750-6) Negative Negative Lab Interpretation (test cod e = 17135-3) Normal [facility] [place] [facility]- MRI LW JNT W/O CONT [id number] 09:09:00 [facility] : 1990 Sex: F Patient Name: SHARYN RUSSELL Unit No: [id number] EXAMS: CPT CODE: [id number] MRI LW JNT W/[place] [address] MRI OF THE RIGHT KNEE DIAGNOSIS: 1. The patient is status post anterior cruciate ligament reconstruction and the graft is intact. 2. Truncation of the free edge of the posterior horn of the lateral meniscus consistent with postsurgical change versus tear. There is also cyst formation abutting the anterior root of the lateral meniscus with contour [...] seen. The lateral meniscus is as described. Medialmeniscus is within normal limits in signal and [...] Onur Cantu MD Technologist: Maikel Hodges,RT(R) Transcribed D/ (09) [facility] NAME: SHARYN RUSSELL [address] [place] [address] PHYS: BRITLISA Onur Miranda : 1990 AGE: 29 SEX: F [place] [address] LOC: Y.MRI PHONE #: [phone] EXAM DATE: 09/13/2020 STATUS: REG CLI FAX #: [phone] RAD #: D/C DT PAGE 1 Signed Report Patient Name: SHARYN RUSSELL Unit No: [id number] EXAMS: CPT CODE: [id number] MRI LW JNT W/[place] [address] <Continued> Orig Print D/T: S: 09/13/2020 (12) [facility] NAME: SHARYN RUSSELL [address] [place] [address] PHYS: KIA CantuOnur Pina : 1990 AGE: 29 SEX: F [place] [address] LOC: Y.MRI PHONE #: [phone] EXAM DATE: 09/13/2020 STATUS: REG CLI FAX #: [phone] RAD #: D/C DT PAGE 2 Signed ReportHGB [id number] 04:41:00* Test Item Value Reference Range Interpretation Comme nts HEMOGLOBIN (test code = HGB) 10.2 g/dL 10.7-13.9 L HEMATOCRIT (test code = HCT) 30.6 % 32.1-42.1 L AB HIV 1 16:06:00* Test Item Value Reference Range Interpretation Comme nts AB HIV 1 2 (test code = OXK51EO) Nonreactive NonReactive It is recognized that currently available assays for thedetection of antibodies to HIV-1 and/or HIV-2 may notdetect all infected individuals. A negative test result doesnot exclude the possibility of exposure to or infection withHIV. HIV antibodies may be undetectable in some stages ofthe infection and in some clinical conditions. IS CONSENT FORM SIGNED FOR HIV TESTING? YAG HEPATITIS B [id number] 16:06:00* Test Item Value Reference Range Interpretation Comme nts AG HEPATITIS B SURFACE (test code = HBSAG) NONREACTIVE NONREACTIVE IS CONSENT FORM SIGNED FOR HIV TESTING? YAB HEPATITIS C [id number] 16:06:00* Test Item Value Reference Range Interpretation Comme nts AB HEPATITIS C (test code = HCVAB) NONREACTIVE NONREACTIVE SIGNAL TO CUTOFF (test code = CUTOFF) <0.02 <0.80 N IS CONSENT FORM SIGNED FOR HIV TESTING? YAB [id number] 16:06:00* Test Item Value Reference Range Interpretation Comme nts AB TREPONEMA (test code = TREPAB) NONREACTIVE NONREACTIVE IS CONSENT FORM SIGNED FOR HIV TESTING? YAB HIV 1 16:06:00* Test Item Value Reference Range Interpretation Comme nts AB HIV 1 2 (test code = RPR59IM) Nonreactive NonReactive It is recognized that currently available assays for thedetection of antibodies to HIV-1 and/or HIV-2 may notdetect all infected individuals. A negative test result doesnot exclude the possibility of exposure to or infection withHIV. HIV antibodies may be undetectable in some stages ofthe infection and in some clinical conditions. IS CONSENT FORM SIGNED FOR HIV TESTING? YAG HEPATITIS B [id number] 20:59:00* Test Item Value Reference Range Interpretation Comme nts AG HEPATITIS B SURFACE (test code = HBSAG) NONREACTIVE NONREACTIVE IS CONSENT FORM SIGNED FOR HIV TESTING? YAB HEPATITIS C [id number] 20:59:00* Test Item Value Reference Range Interpretation Comme nts AB HEPATITIS C (test code = HCVAB) NONREACTIVE NONREACTIVE SIGNAL TO CUTOFF (test code = CUTOFF) <0.02 <0.80 N IS CONSENT FORM SIGNED FOR HIV TESTING? YAB [id number] 20:59:00* Test Item Value Reference Range Interpretation Comme nts AB TREPONEMA (test code = TREPAB) NONREACTIVE NONREACTIVE IS CONSENT FORM SIGNED FOR HIV TESTING? YAB HIV 1 20:59:00* Test Item Value Reference Range Interpretation Comme nts AB HIV 1 2 (test code = FPI51FQ) NONREACTIVE IS CONSENT FORM SIGNED FOR HIV TESTING? YAG HEPATITIS B [id number] 20:17:00* Test Item Value Reference Range Interpretation Comme nts AG HEPATITIS B SURFACE (test code = HBSAG) NONREACTIVE NONREACTIVE IS CONSENT FORM SIGNED FOR HIV TESTING? YAB HEPATITIS C [id number] 20:17:00* Test Item Value Reference Range Interpretation Comme nts AB HEPATITIS C (test code = HCVAB) NONREACTIVE SIGNAL TO CUTOFF (test code = CUTOFF) <0.80 IS CONSENT FORM SIGNED FOR HIV TESTING? YAB [id number] 20:17:00* Test Item Value Reference Range Interpretation Comme nts AB TREPONEMA (test code = TREPAB) NONREACTIVE NONREACTIVE IS CONSENT FORM SIGNED FOR HIV TESTING? YAB HIV 1 20:17:00* Test Item Value Reference Range Interpretation Comme nts AB HIV 1 2 (test code = ZNH63SB) NONREACTIVE IS CONSENT FORM SIGNED FOR HIV TESTING? YCBC W/AUTO [id number] 19:51:00* Test Item Value Reference Range Interpretation Comme nts WHITE BLOOD CELL (test code = WBC) [...] pg 27-35 N MEAN CELL HGB CONCETRATION ( test code = MCHC) 33.2 gm/dL 32.2-34.1 N RED CELL DISTRIBUTION WIDTH (test code = RDW) 12.6 % 12.4-16.5 N PLATELET COUNT (test code = PLT) 240 K/mm3 133-385 N IMMATURE PLATELET FRACTION ( test code = IPF) 0.0 % 0.0-10.8 N MEAN PLATELET VOLUME (test c ode = MPV) 11.1 fl 9.1-12.7 N NEUTROPHIL % (test code = NT%) 68.0 [...] = BA#) 0.0 K/mm3 RBC MORPHOLOGY REQUIRED (arnol t code = RBCM) NORMAL NORMAL PLATELET MORPHOLOGY REQUIRED (test code = PLTMR) NORMAL NORMAL AMNISURE (ROM) [id number] 23:28:00* Test Item Value Reference Range Interpretation Comme nts AMNISURE (ROM) TEST (test co de = AMNI) NON-RUPTURED NON-RUPTURE : *Specimen Comment: MANISH Thapa QC OK? YES- US [facility] [id number] 10:01:00Patient Name: SHARYN RUSSELL Unit No: [id number] EXAMS: CPT CODE: [id number] US [facility] [id number] [facility] [address], [place] [address] OBSTETRICAL ULTRASOUND REPORT ---- Pat. Name: SHARYN RUSSELL Pat. No: [id number] Study Date: 10/29/2019 9:11am , Age: 13 1990, 28 LMP: 01/16/2019 GA by LMP: 40w6d GA by 1st: 40w6d GA by US: 36w3d GA Selected: 39w6d (From Known E) DANNA: 10/30/2019 Referring MD: MARIO FERRER Environmental Program Manager: Julia Sol RDMS CPT4: USPREGFU Admitting MD: MARIO FERRER Hist/Ind: SCAN 2 FU GROWTH MEASUREME NTS AGE GROWTH EVALUATION Measurement GA Range Srce %for GA Ratios ----- ---- ------- BPD 8.6 cm 35w1d (84m0i-70y8o) Hadl BPD <05 FL/BPD 0.85 (0.71 - 0.87) HC 32.5 cm 36w2d (71q2u-83s3z) Hadl HC <05 FL/AC 0.22 (0.20 - 0.24) APD 10.2 cm APD HC/AC 0.97 (0.89 - 1.08) TAD 11.1 cm TAD CI 0.77 (0.70 - 0.86) AC 33.5 cm 37w4d (87x5g-29 w1d) Hadl AC 10% FL 7.3 cm 37w2d (81x7n-34v4i) Hadl FL 12% HL 6.2 cm 36w0d (32v2b-42m3r) Monster HL <05 GA for sonogram 36w3d (82d7w-94k1f) Weight Estimate: based on (BPD,HC,AC,FL) Hadlock Weight: 3086 gm (9116-3632) Hadlo : 6lbs, 12oz Normal: 3264 gm (2103-6765) Brenn Wt% 36% for 39.9 wks Heart Rate: 126 bpm Amniotic Fluid Index: 16.0cm (07.1-21.6) Q1: 3.5cm Q2: 4.2cm Q3: 4.0cm Q4: 4.3cm MATERNAL ANATOMY Ovaries LxHxW (cm) Right 2.2 x 1.5 x2.4 Vol: 4.1cc Left 2.2 x 1.6 x 2.0 Vol: 3.7cc CLINICAL SUMMARY Type of Gestation: Patten Intrauterine in vertex presentation. size is appropriate for gestational age. growth: Consistent with normal growth motion and organs seen: [facility] NAME: SHARYN RUSSELL Radiology Department PHYS: Mario Mccullough III, MD [address] : 1990 AGE: 29 SEX: F [place], [place] [address] LOC: KoleRAD PHONE #: [phone] EXAM DATE: 10/29/2019 STATUS: REG CLI FAX #: [phone] RAD NO: Page 1 Signed Report (CONTINUED) Patient Name: SHARYN RUSSELL Unit No: [id number] EXAMS: CPTCODE: [id number] [place] [address] (Continued) somatic activity observed body and limb movements seen Regular cardiac rhythm observed Placental location: Posterior Right lateral Placental maturity : Grade 3 There is no evidence of placenta previa. Amniotic fluid volume is normal.Uterus and adnexa: No significant abnormality is seen. Thank you for allowing us to participate in the care of this patient. Israel Velasquez M.D. Electronic Signature 10/29/2019 10:01am at 1001 Reported and signed by: Kelley Velasquez MD CC: Mario Ferrer III, MD Technologist: Julia Sol RDMS Probe: Trnscrbd D/ (1001) t.CALIR.CER Orig Print D/T: S: 10/29/2019 (1001) [facility] NAME: SHARYN RUSSELL Radiology Department PHYS: Mario Saunders III, MD [address] : 1990 AGE: 29 SEX: [place] [address] LOC: Hector.RAD PHONE #: [phone] EXAM DATE: 10/29/2019 STATUS: REG CLI FAX #: [phone] RAD NO: Page 2 Signed Report Patient Name: SHARYN RUSSELL Unit No: [id number] EXAMS: CPT CODE: [id number] [place] [address] (Continued) [facility] NAME: SHARYN RUSSELL Radiology Department PHYS: Mario Saunders III, MD [address] : 1990 AGE: 29 SEX: F [place] [address] LOC: MARLENA PHONE #: [phone] EXAM DATE: 10/29/2019 STATUS: PB MALDONADO FAX #: [phone] RAD NO: Page3 Signed Report- US PREG AFTER [id number] 12:18:00Patient Name: SHARYN RUSSELL Unit No: [id number] EXAMS: CPT CODE: [id number] US PREG AFTER [address] [facility] [address], [place] [address] OBSTETRICAL ULTRASOUND REPORT ------ Pat. Name: SHARYN RUSSELL Pat. No: [id number] Study Date: 06/09/2019 10:46am , Age: 13 1990, 28 LMP: 01/16/2019 GA by LMP: 20w4d GA by US: 18w6d GA Selected: 20w4d (LMP) DANNA: 10/23/2019 Referring MD: Nabil Schmitt Environmental Program Manager: Julia Sol RDMS CPT4: [id number] Admitting MD: MARIO FERRER Hist/Ind: SCAN 1 ANATOMY SCAN/DATES -- MEASUREMENTS AGE GROWTH EVALUATION Measurement GA Range Srce %for GA Ratios ----- ---- ------- BPD 4.2 cm 18w4d (45d7r-66z4c) Hadl BPD <05 FL/BPD 0.71 HC 16.2 cm 18w6d (17w2d- 20w3d) Hadl HC <05 FL/AC 0.22 APD 4.2 cm APD HC/AC 1.18 (1.06 - 1.24) TAD 4.5 cm TADCI 0.76 (0.70 - 0.86) AC 13.7 cm 18w6d (97k6s-59q4c) Hadl AC 9% FL 3.0 cm 18w6d (97e0s-76o1y) Hadl FL 13% HL 2.9 cm 19w3d (28i2i-52z2j) Monster HL 31% GA for sonogram 18w6d (47s7j-17y4n) Weight Estimate: based on (BPD,HC,AC,FL) Hadlock Weight: 276 gm (236-317) Hadlock : 0lbs, 9oz Cervical Length: 4.9 cm Heart Rate: 158 bpm CLINICAL SUMMARY Type of Gestation: Patten Intrauterine in variable presentation. size is SLIGHTLY LESS THAN EXPECTED for gestational age. growth: RECOMMEND CORRELATIONWITH EARLY OFFICE SCAN motion and organs seen: heart motion seen somatic activityobserved body and limb movements seen Four chamber heart observed Left ventricular outfl ow tract (LVOT) seen Right ventricular outflow tract (RVOT) seen Regular cardiac rhythm observed Normal intracranial anatomy seen Umbilical cord insertion in fetus seen stomach, Renal Fossa, Bladder and Spine seen Three vessel umbilical cord noted [facility] NAME: SHARYN RUSSELL Radiology Department PHYS: Mario Saunders III, MD [address] : 1990 AGE: 28 SEX: F [place] [address] LOC: KoleRAD PHONE #: [phone] EXAM DATE: 06/09/2019 STATUS: REG CLI FAX #: [phone] RAD NO: Page 1 Signed Report (CONTINUED) Patient Name: SHARYN RUSSELL Unit No: [id number] EXAMS: CPT CODE: [id number] US PREG AFTER 1ST TRI [address] (Continued) abnormalities observed: None seen at this exam Placental location: Posterior Right lateral Placental maturity : Grade 1 There is [...] Technologist: Julia Sol RDMS Probe: Trnscrbd D/ (3788) t.SDR.CER Orig Print D/T: S: 06/09/2019 (1218) [facility] NAME: SHARYN RUSSELL Radiology Department PHYS: Mario Saunders III, MD [address] : 1990 AGE: 28 SEX: F [place] [address] LOC: KoleRAD PHONE #: [phone] EXAM DATE: 06/09/2019 STATUS: REG CLI FAX #: [phone] RAD NO: Page 2 Signed Report Patient Name: SHARYN RUSSELL Unit No: [id number] EXAMS: CPT CODE: [id number] US PREG AFTER 1ST TRI [address] (Continued) [facility] NAME: SHARYN RUSSELL Radiology Department PHYS: Mario Saunders III, MD [address] : 1990 AGE: 28 SEX: F [place] [address] LOC: KoleRAD PHONE #: [phone] EXAM DATE: 06/09/2019 STATUS: REG CLI FAX #: [phone] RAD NO: Page 3 Signed Report Notes Date/Time Note Provider Source 2023-06-21 14:02:04 VwR5Qqp2JMVhKqq5666d GQFLXVg5eG7S v8T9gc+wkDJ4Sx9RdgFfJJ7JiosKEM3r 6780-06-04L68:02:04 Pt discharged home. Given all education and information regarding care/management; fever control; and follow up importance. Also informed of my chart results . Pt verbalized understanding. Alert and ambulatory to pov with family. 87690-4Bwycskisi department JlptUI9112-39-90F22:02:55Emervencor hospital department NoteTXT1.2.840.386186.1.13.104.2 .7.2.057416|[id number] for patient bbvw29728-4FtqnEH420938951Obbdtv A Paul RN[address] MpzzVkwvoaxtvHlzwxtumbBQBC782569 7240WYGGZKNZJDTBSPZSOPAZTC0948-4 4:02:551.2.840.006420.1.72 .3.15|1.2.840.973940.1.13.104.2. 7.2.727879_[id number] Azucena Gonzalez RN [facility] 2023-06-21 13:28:27 DJI1ew/YfxFgUKY2hXF5 mJcsusnGuYJ+ 3Kuo7rHojd2yHtaEi8f2JETFKmop3Tbv 1268-75-13X64:28:27 Patient has URI symptoms that started today. Been around somebody with covid. 43858-2Kwiogllbr department Triage qmebOT0133-90-35H69:28:40Emervencor hospital department Triage noteTXT1.2.840.484468.1.13.104.2 .7.2.824192|[id number] e for patient rvsk78181-7Czrfqvkcp department SvpwXL128131408Soammru D Wierzbicki RNUT[address] HlrgNdmwjgjetNcbrklfusRKML267638 7207DQJPGFQGLBVCLSFOLAUZEM0525-7 06-21T13:28:401.2.840.782355.1.72 .3.15|1.2.840.910506.1.13.104.2. 7.2.727879_[id number] Kodak Lemos RN [facility] 2023-06-21 13:20:00 ohMbLdekM9tL6U6t8E3L mM/4nIaD6XRy k8YOwhTokGUGanXpXKEhhWqbz31dyurh 1241-12-92Y28:20:00 [facility] Emergency Department NotePatient Name: Sharyn Lock of : 1990 32 year old femaleTreatment Room: [place] [address]Medical Record Number: [id number] Care Physician: PATIENT DOES NOT HAVE A PCPPatient Escorted by: Family [5]Mode of Arrival: Personal means [1]EMS Treatment Prior to ED Arrival: Travel and Exposure Screening:SymptomsDoes patient have any of these symptoms?: (not recorded)Exposure ScreeningHas patient had contact with someone with a communicable disease in the last month?: (not recorded)Diseases exposed to:: (not recorded)Is Patient ?: (not recorded)Exposure Date: (not recorded)Chief Complaint:Chief Complaint Patient presents with URI History of Present Illness:The patient presents from home for evaluation for body aches, cough and not feeling well that started today. She has sick contacts at her work that have tested positive for COVID. No medications for symptoms today. She does not smoke. No history of asthma. Decreased oral intake today due to loss of appetite but no vomiting.Here for evaluation.Past Medical History/Immunizations:Past Medical History: Diagnosis Date Acanthosis nigricans noted on neck Allergies:No Known AllergiesPast Social History:Tobacco Use Never smoked or used smokeless tobacco. Alcohol Use Yes. Comments: weekends / social Drug Use No. Sexual Activity Sexually active; Partners: Male; Control/Protection: None. Past Surgical History:Past Surgical History: Procedure Laterality Date ANTERIOR CRUCIATE LIGAMENT RECONSTRUCTION 12/2016 LAPAROSCOPIC GASTRIC SLEEVE (SHX) 08/2017 TONSILLECTOMY WITH ADENOIDECTOMY 10/2009 Review of Systems: Review of Systems Constitutional: Positive for chills and fever (subjective). HENT: Negative for sore throat. Respiratory: Positive for cough. Cardiovascular: Negative for chest pain. Gastrointestinal: Negative for abdominal pain, nausea and vomiting. Genitourinary: Negative for dysuria. Musculoskeletal: Positive for myalgias. Negative for arthralgias, neck pain and neck stiffness. Neurological: Negative for dizziness. Psychiatric/Behavioral: Negative for agitation. Endocrine: Negative for goiter. Physical Exam: ED Triage Vitals [06/21/23 1300] Weight 97.1 kg (214 lb) Actual or estimated Height 1.524 m (5') BP (!) 137/93 Pulse 116 Resp 16 Temp 37.1 ?C (98.8 ?F) Temp source Oral SpO2 100 % Measured on Physical ExamVitals and nursing note reviewed. Constitutional: Appearance: Normal appearance. She is obese. HENT: Head: Normocephalic and atraumatic. Right Ear: Tympanic membrane and ear canal normal. Left Ear: Tympanic membrane and ear canal normal. Nose: Nose normal. Mouth/Throat: Mouth: Mucous membranes are moist. Pharynx: Oropharynx is clear. No oropharyngeal exudate or posterior oropharyngeal erythema. Cardiovascular: Rate and Rhythm: Normal rate and regular rhythm. Pulmonary: Effort: Pulmonary effort is normal. No respiratory distress. Breath sounds: No stridor. No wheezing or rhonchi. Abdominal: General: There is no distension. Palpations: Abdomen is soft. Tenderness: There is no abdominal tenderness. Musculoskeletal: General: Normal range of motion. Cervical back: Normal range of motion and neck supple. Skin: General: Skin is warm and dry. Neurological: General: No focal deficit present. Mental Status: She is alert and oriented to person, place, and time. Radiology:No orders to display Lab Results:Lab Results - No data to displayEKG:If EKG completed, see Procedure Note. Orders and Treatments:Orders Placed This Encounter Procedures COVID-19 (ID NOW TESTING) No orders of the defined types were placed in this encounter.First Provider Eval:ED Events Date/Time Event User Comments 06/21/23 1321 Medical Screening Begins REKHA COSTA DO -- 06/21/23 1321 First Provider Evaluation REKHA COSTA DO -- No notes of EC Admission Criteria type on file.ED COURSEDiagnosis/Impression as of 06/21/23 1341 Upper respiratory tract infection, unspecified type Procedures: ProceduresMDM:Medical Decision MakingThe patient presents from home for evaluation for body aches, cough and not feeling well that started today. She has sick contacts at her work that have tested positive for COVID. No medications for symptoms today. She does not smoke. No history of asthma. Decreased oral intake today due to loss of appetite but no vomiting.Here for evaluation.Vital signs are stable in the ER.Her lungs are clear bilaterally.Her pharynx is pink without excess erythema.Her tympanic membranes are pearly wilson.Suspect a viral syndrome.The patient does desire testing for COVID.She can follow-up with results on the Glassful cassy.Recommend she is aqgp-lmq-urayijr cough and cold medications as needed for her symptoms.She remained stable here in the ER and is okay for discharge home with PCP follow-up.Problems Addressed:Upper respiratory tract infection, unspecified type: acute illness or injuryRiskOTC drugs. Flowsheet Documentation: Scoring Tools: No data recorded Disposition/Condition:ED Disposition ED Disposition Disch - Home Condition Stable Comment -- Discharge Medications:Patient's Medications START taking these medications No medications on file CONTINUE taking these medications which have NOT CHANGED HYDROCODONE-ACETAMINOPHEN 5-325 MG TABLET Take 1 tablet by mouth every 6 (six) hours as needed for Pain (scale 4-6) or Pain (scale 7-10). MELOXICAM 7.5 MG TABLET Take 1 tablet by mouth daily. ONDANSETRON 4 MG DISINTEGRATING TABLET Take 1 tablet by mouth every 8 (eight) hours as needed for Nausea and Vomiting (N/V). POLYMYXIN B SULF-TRIMETHOPRIM 10,000 UNIT- 1 MG/ML OPHTHALMIC DROPS Place 1 Drop in left eye every 4 (four) hours. START taking Modified Medications as Prescribed No medications on file STOP taking these medications No medications on file Follow-up:Electronically signed by: Rekha Costa DO06/21/23 1341 78607-1Kegpgngyh Emergency department IoyhQI1387-29-76C60:41:37Physici an Emergency department NoteTXT1.2.840.546436.1.13.104.2 .7.2.083454|[id number] e for patient oiuw94024-0Iyxgofupq department NoteLNUT[address] SuqtWpaevqxntTtemuddseQKWD697069 6036RRHTOQLWRLQDNBDNBVUJUC5723-3 8-31T13:41:371.2.840.902932.1.72 .3.15|1.2.840.545302.1.13.104.2. 7.2.727879_[id number] [facility] 2023-05-10 15:26:20 DHVJA4wmh63b4wCF070T LrjdWJPD/Fbi VMkf+DjZJ61sebKmXlRJJ3eSAprGdwlE 9784-48-30P74:26:20 Pt given printed and verbal discharge instructions regarding eye, encouraged hydration,Prescriptions providedDiscussed ibuprofen and to take with food to avoid GI distress, alternate with Tylenol to help with pain and/or feverDiscussed antibiotic therapy and to take until all completed unless adverse reaction occurs - if occurs, discontinue medication and follow up with pcp/seek medical attentionDiscussed medication side affects and to avoid driving/operating machinery/or engaging in activities requiring alertness while taking.Pt verbalized understanding of instructions,pt encouraged to follow up with pcp and or specialistAwake, alert oriented, resp reg unlabored, skin w/d, pt leaving in no apparent distress, 24902-1Spgehkqfg department XrccDO3236-61-73Q18:27:15Emervencor hospital department NoteTXT1.2.840.636171.1.13.104.2 .7.2.525728|[id number] e for patient kqir434442909Kbwam M Crawford RNUT[address]GalvestonTX[place] 1051DRBKAKVRKYCXOYLICAMRWC2030-6 7-20T15:27:151.2.840.919634.1.72 .3.15|1.2.840.079574.1.13.104.2. 7.2.727879_[id number] Ryanne Hwang RN [facility] 2023-05-10 15:24:26 zmSg+A/utJy2GeckV1V8 34+kiEyy3frf iBWTo+tgY76ZZ0wcBmEshjDxUtou2mIT 4012-44-94U83:24:26 Ambulatory steady gait to restroom 99279-4Bxqrqvhai department TbtuUA0143-59-94B74:24:37[facility] department NoteTXT1.2.840.238478.1.13.104.2 .7.2.031774|[id number] e for patient [address] 8568LTUELHSJIEUTWCFDMTDZKZ1048-7 7-20T15:24:371.2.840.386195.1.72 .3.15|1.2.840.968238.1.13.104.2. 7.2.727879_[id number] [facility] 2023-05-10 14:18:38 mCAc8xd2s1zgIpsSkBiC C0LlV4SNaI75 q68vCEZIWoJR8zhPJghCiQgLLrNXnFFc 8849-80-11M06:18:38 Patient CO of left eye pain/pressure starting today, patient left eye is red and states her vision is a little blurry. Patient also CO of electric shock feeling starting 2 days ago on the right side of her face and a headache. 00350-2Almragbsa department Triage ysejLT2643-10-68Q26:20:20Emergen cy department Triage noteTXT1.2.840.754970.1.13.104.2 .7.2.201002|[id number] e for patient cjbu087624396Izscdqhu R Moss RN[address] XxbeAprcyanmzPkpmkgjisXSBA901836 8401LOKYTHNLGHDIZCCNDNUDJA3689-8 4:20:201.2.840.375904.1.72 .3.15|1.2.840.766767.1.13.104.2. 7.2.727879_[id number] Marc Morales RN [facility] 2022-05-18 18:31:00 G438362-52155847albw kPixE3kfHRnH mFcSxcO06A3c3CVlIr0xCnf2ng6QZY9V +W1+IfiaCnWmspFC9842-65-52T42:31 :00 [facility] ([facility])OB Disch PostpartumREPORT#:[id number] REPORT STATUS: SignedDATE:05/18/22 TIME: 183 PATIENT: SHARYN RUSSELL UNIT #: [id number]#: [id number] ROOM/BED: Replaced By [facility]-ADOB: [birth year] AGE: 31 SEX: F ATTEND: Abel Mcgovern [facility] AUTHOR: Abel Mcgovern MD * ALL edits or amendments must be made on the electronic/computer document * Subjective SubjectiveAdmission EGA: Weeks: 35EGA at delivery (wks/days): 35 2/7 wksStatus/day: post , post operativePatient reports: Patient reports: No: complaints. Nursing reports: Nursing reports: No: complaints. Objective GeneralVS:Vital Signs Date Temp Pulse Resp B/P B/P Mean Pulse Ox FiO2 05/18 97.5-98.7 82-98 18 111-138/76-88 Last Documented: Result Date Time B/P 111/76 05/18 0837 Temp 97.5 05/18 0837 Pulse 82 05/18 0837 Resp 18 05/18 0837 Pulse Ox 98 05/17 1609 B/P Mean 77.0 05/15 0100 PATIENT WEIGHT: Weight (lb): 226Weight (oz): 6.64Weight (kg): 102.700 Physical ExamCardiac: normal rhythmLungs: clear to auscultation, no rales, no rhonchi, unlabored breathingNeuro: Exam: alert, oriented x3, normal speechAbdomen: post gravid, soft, no abnormal tenderness, no guarding, no rebound tenderness, normoactive bowel soundsIncision site: well approximated edges, dry, no drainage, no inflammationLower extremities: Edema: none Discharge Summary GeneralAssessment: nml progressHospital course: spontaneous labor, repeat LTCS in labor, epidural anesthesia, spinal anesthesia, nml postop/postpart careDischarge condition: stableDischarge to: Home/Self CareDischarge diagnosis: previous uterine incision, pre-term labor, multiple gestationBaby A: status: live born Gender: malePlan: routine care Discharge InstructionsInstructions: specific instr as notedDiet: Resume Home Diet/FeedsActivity: As ToleratedAdditional discharge routines: Attending Follow-UpDischarge meds:Continue taking these medications:PNV WITH FE FUMARATE/FA () 1 EACH TAB 1 TABLET ORAL DAILY. Start taking the following new medications:HYDROcodone/APAP (HYDROcodone/APAP 10/325) 10 MG-325 MG TAB 1 TABLET ORAL EVERY 4 HOURS NEEDED. as needed for SEVERE PAIN (SCALE 7-10) Qty = 30 No Refills IBUPROFEN (MOTRIN) 600 MG TAB 600 MILLIGRAM ORAL EVERY 6 HOURS. Qty = 60 No Refills Prescriptions: e-prescribe at 1833 [facility] #:[id number] OF REPORT CLClinical bzgd9608-98-50K47:31:00F.DRYP590 [address]-8[address]IVUhbjasqym for patient jflsTFRQZIDOZOWVBT2253-39-42V58: 33:35 [facility] 2022-05-17 09:16:00 [id number] BSaIzajUbKsp TXgxXg/5cfu0x8JfJERWFsOp3fL3gi4D zG7nk11qq6zP5G/85116-26-24L62:16 :00 [facility] ([facility])OB Postpart Progr NoteREPORT#:[id number] REPORT STATUS: SignedDATE:05/17/22 TIME: 09 PATIENT: SHARYN RUSSELL UNIT #: [id number]#: [id number] [address] [birth year] AGE: 31 SEX: F ATTEND: Abel Mcgovern MDADM AUTHOR: Abel Mcgovern MD * ALL edits or amendments must be made on the electronic/computer document * Subjective SubjectiveAdmission EGA: Weeks: 35EGA at delivery (wks/days): 35 2/7 wksStatus/Day: post , post operativePatient reports: Patient reports: No no complaintsNursing reports: Nursing reports: No complaints Objective Nursing Documentation ReviewNursing Data:The data set between the solid lines has been imported from nursing documentation. Any exceptions have been noted below under Provider comments. Feeding preference: Post hemorrhage risk score: Medium Risk for Hemorrhage. Provider comments on imported nursing data: [] GeneralVS:Vital Signs: Date Time Temp Pulse Resp B/P B/P Pulse O2 O2 Flow FiO2 Mean Ox Delivery Rate 05/16 2230 98.2 73 19 116/75 05/16 1610 98.3 77 20 113/69 05/16 1342 98.1 79 20 111/71 PATIENT WEIGHT: Weight (lb): 226Weight (oz): 6.64Weight (kg): 102.700 Physical ExamCardiac: normal sinus rhythmLungs: clear to auscultationNeuro: Exam: alert, oriented x3, normal speechAbdomen: soft, no abnormal tenderness, no guarding, no rebound tenderness, normoactive bowel soundsIncision site: well approximated edges, dry, no drainage, no inflammation Diagnosis, Assessment Plan Diagnosis, Assessment PlanAssessment: nml progressPlan: routine care at 0918 RPT #:[id number] OF REPORT PRProgress ouit5273-55-75F05:16:00F.SSEJ812 [address]92HRAcicttqok for patient jyejYTJNLMRTWPXPSX2570-03-23S67: 20:12 [facility] 2022-05-16 08:27:00 [id number] 2xpajcikq+v7 XbZoqS3tNugV1AutbXkyeZLFN05sgieN jMsUk7hVfLU4QD4g9213-84-15X56:27 :00 [facility] ([facility])OB Postpart Progr NoteREPORT#:[id number] REPORT STATUS: SignedDATE:05/16/22 TIME: 826 PATIENT: SHARYN RUSSELL UNIT #: [id number]#: [id number] [address] [birth year] AGE: 31 SEX: F ATTEND: Abel Mcgovern AUTHOR: Abel Mcgovern MD * ALL edits or amendments must be made on the electronic/computer document * Subjective SubjectiveAdmission EGA: Weeks: 35EGA at delivery (wks/days): 35 2/7 wksStatus/Day: post , post operativePatient reports: Patient reports: No no complaintsNursing reports: Nursing reports: No complaints Objective Nursing Documentation ReviewNursing Data:The data set between the solid lines has been imported from nursing documentation. Any exceptions have been noted below under Provider comments. Feeding preference: Post hemorrhage risk score: Medium Risk for Hemorrhage. Provider comments on imported nursing data: [] GeneralVS:Vital Signs: Date Time Temp Pulse Resp B/P B/P Pulse O2 O2 Flow FiO2 Mean Ox Delivery Rate 05/15 2333 97.7 71 18 105/67 05/15 1958 97.9 66 18 105/63 05/15 1628 98.3 83 18 149/95 05/15 1146 98.3 61 18 104/65 PATIENT WEIGHT: Weight (lb): 226Weight (oz): 6.64Weight (kg): 102.700 Physical ExamCardiac: normal sinus rhythmLungs: clear to auscultationNeuro: Exam: alert, oriented x3, normal speechAbdomen: soft, no abnormal tenderness, no guarding, no rebound tenderness, normoactive bowel soundsIncision site: well approximated edges, dry, no drainage, no inflammation ResultFindings/Data:Laboratory Tests: 05/15 0852 Hematology WBC (6.5 - [...] (Auto) (14.5 - 29.7 %) 10.8 L [place] % (Auto) (3.6 - 10.2 %) 9.1 Eos % (Auto) (0.0 - 3.0 %) 0.0 Baso % (Auto) (0.1 - 0.9 %) 0.3 Neut # (Auto) (K/mm3) 14.6 Lymph # (Auto) (K/mm3) 2.0 [place] # (Auto) (K/mm3) 1.7 Eos # (Auto) (K/mm3) 0 Baso # (Auto) (K/mm3) 0.1 Diagnosis, Assessment Plan Diagnosis, Assessment PlanAssessment: nml progressPlan: routine care at 0828 RPT #:[id number] OF REPORT PRProgress rckq0856-52-39G34:27:00F.BKDI776 86[address]-6825MNSsuczffur for patient uuvgGSJJFBDZXEEJHF3483-11-30L40: 28:33 [facility] 2022-05-15 11:05:00 [id number] Cwspfe7X5Asv 1Dv160A1jlXMDgiAmyN2I4DJaJ0lf3UI gl1QEVPw8cqC/taW2116-22-85L03:05 :00 [facility] ([facility])OB Postpart Progr NoteREPORT#:[id number] REPORT STATUS: SignedDATE:05/15/22 TIME: 1105 PATIENT: SHARYN RUSSELL UNIT #: [id number]#: [id number] [address] [birth year] AGE: 31 SEX: F ATTEND: Abel Mcgovern MDADM AUTHOR: Abel Mcgovern MD * ALL edits or amendments must be made on the electronic/computer document * Subjective SubjectiveAdmission EGA: Weeks: 35EGA at delivery (wks/days): 35 2/7 wksStatus/Day: post , post operativePatient reports: Patient reports: No no complaintsNursing reports: Nursing reports: No complaints Objective Nursing Documentation ReviewNursing Data:The data set between the solid lines has been imported from nursing documentation. Any exceptions have been noted below under Provider comments. Feeding preference: Post hemorrhage risk score: Medium Risk for Hemorrhage. Provider comments on imported nursing data: [] GeneralVS:Vital Signs: Date Time Temp Pulse Resp B/P B/P Pulse O2 O2 Flow FiO2 Mean Ox Delivery Rate 05/15 0415 [...] 103 116/57 98 PATIENT WEIGHT: Weight (lb): 226Weight (oz): 6.64Weight (kg): 102.700 Physical ExamCardiac: normal sinus rhythmLungs: clear to auscultationNeuro: Exam: alert, oriented x3, normal speechAbdomen: soft, no abnormal tenderness, no guarding, no rebound tenderness, normoactive bowel sounds ResultFindings/Data:Laboratory Tests: 05/15 05/14 0852 1935 Chemistry Sodium [...] (14.5 - 29.7 %) 10.8 L 16.7 [place] % (Auto) (3.6 - 10.2 %) 9.1 12.0 H Eos % (Auto) (0.0 - 3.0 %) 0.0 0.2 Baso % (Auto) (0.1 - 0.9 %) 0.3 0.5 Neut # (Auto) (K/mm3) 14.6 9.4 Lymph # (Auto) (K/mm3) 2.0 2.3 [place] # (Auto) (K/mm3) 1.7 1.7 Eos # (Auto) (K/mm3) 0 0.03 Baso # (Auto) (K/mm3) 0.1 0.1 Serology Treponema pallidum Ab (NONREACTIVE) NONREACTIVE Hep Bs Antigen (NONREACTIVE) NONREACTIVE Hepatitis C Antibody (NONREACTIVE) NONREACTIVE Hep C Ab Signal/Cutoff (<0.80) 0.04 Diagnosis, Assessment Plan Diagnosis, Assessment PlanAssessment: nml progressPlan: routine care at 1106 RPT #:[id number] OF REPORT PRProgress lkrf0771-38-93P36:05:00F.BPII842 599[address]-5848TFVmumgazke for patient mouaLHOGHXNIHBYKGV7846-93-84C29: 07:00 [facility] 2022-05-14 22:45:00 [id number] /TuqLTOhY3hR mobOnDS4ttgVj0nm+Sq2RTdYe1H7W08W FIEnVDPGh5rNEX/D7179-10-77G84:45 :[id number] [facility] [id number] PATIENT NAME: SHARYN RUSSELL ADMIT DATE: 05/12/22ACCOUNT NO: [id number] ROOM NO: Replaced By [facility] AGE: 31 SEX: F ADMITTING PHYSICIAN: Abel Mcgovern MD ATTENDING PHYSICIAN: Abel Mcgovern MD OPERATION DATE: 05/14/2022 PREOPERATIVE DIAGNOSES:1. A 35 weeks and 2 days' gestation.2. Two previous sections.3. labor. POSTOPERATIVE DIAGNOSES:1. A 35 weeks and 2 days' gestation.2. Two previous sections.3. labor. PROCEDURE PERFORMED: Repeat low transverse section. SURGEON: Abel Mcgovern MD. GROUP PRODUCT MANAGER: Presley Ortiz MD, an conventions assistant is needed since section sergio complicated procedure requiring 2-person operation. ANESTHESIA: Spinal epidural by Dr. Burrows. ESTIMATED BLOOD LOSS: 600 mL. COMPLICATIONS: None. FINDINGS: Viable male in vertex presentation with nuchal cord x1, loose,reduced. weight 2200 grams. Apgars not assigned by the manjeet yet. Normaluterus, ovaries, and fallopian tubes. The previous has a window. DESCRIPTION OF THE PROCEDURE: The patient has been in labor and havinglow back pain. Due to the patient's habitus, her contraction was not pickeduntil today. She was jeremias every 6 minutes. Therefore, she was taken Jil where spinal and epidural anesthesia was placed. The patient was placed onthe operating table in left tilt position. Adequate level of anesthesia wasconfirmed. Abdomen was prepped and draped in the usual sterile fashion. APfannenstiel skin incision was performed with scalpel over the old scar. Abdomen was entered in the usual fashion without difficulty. Bladder wasretracted with bladder blade. Low transverse uterine incision was performedwith scalpel. Clear amniotic fluid was noted. Lending Manager's right hand reachedover baby's head and conventions assistant applied fundal pressure, baby was easilydelivered. Nose and mouth were suctioned. Cord was doubly clamped and cutbetween clamps. Baby was passed to the neonatology team. Cord blood wasobtained. Placenta manually extracted. Uterus was cleaned and remained in the PATIENT NAME: SHARYN RUSSELL abdominal cavity. The uterine incision was repaired with #1 chromic inrunning-locking fashion. Hemostasis was achieved with whhlfyennelahnbi-aa-bqbam suture. Abdomen was cleaned with some moist lap, hemostasis wasobserved. The peritoneum was approximated with 0 Vicryl in simple runningfashion. Rectus abdominal muscle was reapproximated with 0 Vicryl in simplerunning fashion. The operative field was irrigated copiously, irrigantaspirated. Hemostasis was observed. The fascia was reapproximated with #1Vicryl in simple running fashion. Subcutaneous space was cleaned with moistlap, hemostasis was achieved with Bovie. Subcutaneous fat was reapproximatedwith 2-0 plain gut. Skin was reapproximated with 3-0 Monocryl in subcuticularstitch. Dermabond was used to seal the skin. Afterward, the patient wastransferred to recovery in stable condition. All instrument and lap counts werecorrect x3. Dictated By: Abel Mcgovern MD WT: OP:F.HIM/TERELL/NTSDD: 05/14/2022 22:45:51DT: 05/15/2022 01:13:17Conf#: [id number]/DID#: [id number] Authenticated by Abel Mcgovern MD On 05/15/2022 08:57:46 PM at 0857 PATIENT NAME: SHARYN RUSSELL npbgxp0821-19-08A26:13:00F.HIM20 [id number] for patient ftalGTTMWUKSIKUVZU6451-41-11I21: 58:26 [facility] 2022-05-14 22:38:00 [id number] ypkxnqXpDCb6 MetnwBRcCaR/0YwRofk78gPj3oa44ylv IT5wIREUmpT3SBYV1743-91-64N32:38 :00 [facility] ([facility])OB Delivery NoteREPORT#:[id number] REPORT STATUS: SignedDATE:05/14/22 TIME: 2237 PATIENT: SHARYN RUSSELL UNIT #: [id number]#: [id number] [address] [birth year] AGE: 31 SEX: F ATTEND: Abel Mcgovern MDADM AUTHOR: Abel Mcgovern MD * ALL edits or amendments must be made on the electronic/computer document * OB Delivery Nursing Documentation ReviewNursing data:The data set between the solid lines has been imported from nursing documentation. Any exceptions have been noted below under Provider comments. ROM date: 05/14/22 ROM time: 2124Membranes rupture method: AROMAmniotic fluid color: ClearAmniotic fluid amount: Steroids prior to arrival: Antibiotic prophylaxis given: Post hemorrhage risk score: Medium Risk for Hemorrhage. Delivery date infant A: 05/14/22 Delivery time infant A: 2126Birthweight (gm) infant A: 2200Weight (lb) A: Weight (oz) infant A: Gender A: MaleApgar 1 minute infant A: 5 minutes infant A: 10 minutes A: Cord pH obtained infant A: Vacuum time infant A: Vacuum # pulls infant A: Vacuum # popoffs A: QBL at delivery: Provider comments on imported nursing data: [] Pre-deliveryGBS status: GBS status: unknownNewborn evaluation at delivery: NNPAdmission EGA: Weeks: 35EGA at delivery (wks/days): 35 2/7 wks Blood Loss/DetailsBlood loss at delivery: 600 mL Baby A InformationBaby A information Delivery date: 05/14/22 Delivery time: 2125 status: live born Wt of baby (grams): 2200 Gender: maleABG details Baby A Cord blood gases: not collectedNuchal cord Baby A Nuchal cord: yes (loose and reduced) Anomalies:none Delivery DeliveryCesarean section indication: previous Priority: indicated (add on) Decision to incision time: greater than 30 mins Antibiotic prior to incision: 1 dose )(SCDs applied activated: Yes Uterine incision: low transverse Uterine scar: incidental window Consent: indication discussed, questions answered, pt consent to op delivery Mother's condition: mother stable 's condition: infant stable in nursery at 2241 RPT #:[id number] OF REPORT CLClinical sjyg5419-99-17P35:38:00F.EQZK267 97063-9639XCMwwektbkv for patient nstbWWONHJIWOCMMKX1708-85-71F79: 42:02 [facility] 2022-05-14 11:56:00 [id number] rKShz0MK05Lo NdHco4AICxdoKlFOVZ2MY5kzXIpt2ydf WF1Gn13svlK7BIv97615-20-02B41:56 :00 [facility] ([facility])OB Antepartum Prog NoteREPORT#:[id number] REPORT STATUS: SignedDATE:05/14/22 TIME: 1156 PATIENT: SHARYN RUSSELL UNIT #: [id number]#: [id number] [address] [birth year] AGE: 31 SEX: F ATTEND: Abel Mcgovern [facility] AUTHOR: Abel Mcgovern MD * ALL edits or amendments must be made on the electronic/computer document * Subjective SubjectiveAdmission EGA: Weeks: 35Comments:Pt is 35 2/7 wks today. She c/o constant LBP despite of Morphine. I suspected she has back labor plus her habitus making her contraction harder to be registered. I reviewed her NST in the past two days. She did some occasional small contractions. These contarction appeared small on the electronic monitor strip but it may be significant for her habitus. So I tested one theory, I gave her Magnesium sulfate for 12 hours. She indeed felt much less lowerr back pain. Today I started her on Procardia 60 mg XL po qd Objective Nursing Documentation ReviewNursing data:The data set between the solid lines has been imported from nursing documentation. Any exceptions have been noted below under Provider comments. ROM date: ROM time: Labor onset date: Labor onset time: Provider comments on imported nursing data: [] VS:Last Documented: Result Date Time B/P Mean 88.0 05/14 0745 Pulse Ox 98 05/14 0745 B/P 125/67 05/14 0745 Temp 98.3 05/14 0745 Pulse 96 05/14 0745 Resp 18 05/14 0745 Vital Signs Date Temp Pulse Resp B/P B/P Mean Pulse Ox FiO2 05/13-05/14 98.3-99.0 75-111 18 105-125/51-67 72.0-88.0 96-98 PATIENT WEIGHT: Weight (lb): 226Weight (oz): 6.64Weight (kg): 102.700 Membranes: IntactUterine activity: Monitor: toco Frequency (description): occasional Frequency (minutes): 8 Duration (seconds): 15 Intensity: moderate Resting tone: relaxed Tachysystole: NoHEENT: normocephalic w/o injuryCardiac: regular rate and rhythmLungs: clear to auscultation, no rales, no rhonchi, unlabored breathingNeuro: Exam: alert, oriented x3, normal speechAbdomen: gravid, soft, no abnormal tenderness, no guarding, no rebound tenderness, normoactive bowel soundsLower extremities: Edema: noneBaby A: Baby A baseline: 125 bpm Baby A variability: marked > 25 bpm Baby A accelerations: 15 X 15 Baby A decelerations: none Baby A FHR category: category 1Findings/data:Laboratory Tests: 05/13 1520 Other Body Source Membranes Rupture NON-RUPTURED Diagnosis, Assessment Plan Diagnosis, Assessment PlanAssessment: threatened labor, Pt had two section last one just one year ago. Due to her habitus ctx many not be easily monitored. She c/o cramping every two minutes. My initial impression is she is stressed due to lackof sleep, that makes her cramp more. So I gave her Ambien, Phenerga 25 mg q 6 hrs w/o improvement. So now I have to give her Magnesium in case she has nonmonitorable ctx.Plan: If [place] makes her lower back pain decreases, will d/c home with it. Ifnot helpful, consider delivery tomorrow at 1202 RPT #:[id number] OF REPORT PRProgress bvpt3959-05-41F75:56:00F.OOVD619 525[address]-2134UIOjhysdqlt for patient rgpgAHFTPOXUSUZLFE4407-59-22O32: 03:12 [facility] 2022-05-13 22:39:00 [id number] eI2Ou4IIZVNr Or4VFDFRBJz71dy6uZWp3h9XPOoJVyxg CxIjN6hDfsKmHu6W0219-10-43K92:39 :00 [facility] ([facility])OB Antepartum Prog NoteREPORT#:[id number] REPORT STATUS: SignedDATE:05/13/22 TIME: 2238 PATIENT: SHARYN RUSSELL UNIT #: [id number]#: [id number] ROOM[facility]BED: [facility]-ADOB: [birth year] AGE: 31 SEX: F ATTEND: Abel Mcgovern [facility] AUTHOR: Abel Mcgovern MD * ALL edits or amendments must be made on the electronic/computer document * Subjective SubjectiveAdmission EGA: Weeks: 35Comments:Pt c/o headache, lower back cramps keeping her up. Nausea and vomiting (she had 2+ ketonuria yesterday) Objective Nursing Documentation ReviewNursing data:The data set between the solid lines has been imported from nursing documentation. Any exceptions have been noted below under Provider comments. ROM date: ROM time: Labor onset date: Labor onset time: Provider comments on imported nursing data: [] VS:Last Documented: Result Date Time B/P Mean 79.0 05/13 1929 B/P 117/60 05/13 1929 Pulse 99 05/13 1929 Pulse Ox 98 05/13 1928 Temp 99.0 05/13 1525 Resp 18 05/12 2213 Vital Signs Date Temp Pulse Resp B/P B/P Mean Pulse Ox FiO2 05/13 99.0 75-101 105-117/56-62 76.0-82.0 96-98 PATIENT WEIGHT: Weight (lb): 226Weight (oz): 6.64Weight (kg): 102.700 Membranes: IntactUterine activity: Monitor: toco Frequency (description): irritabilityHEENT: normocephalic w/o injuryCardiac: regular rate and rhythmLungs: clear to auscultation, no rales, no rhonchi, unlabored breathingNeuro: Exam: alert, oriented x3, normal speechAbdomen: gravid, soft, no abnormal tenderness, no guarding, no rebound tenderness, normoactive bowel soundsLower extremities: Edema: noneBaby A: Baby A baseline: 125 bpm Baby A variability: marked > 25 bpm Baby A accelerations: 15 X 15 Baby A decelerations: none Baby A FHR category: category 1Findings/data:Laboratory Tests: 05/13 1520 Other Body Source Membranes Rupture NON-RUPTURED Diagnosis, Assessment Plan Diagnosis, Assessment PlanAssessment: threatened labor, Pt had two section last one just one year ago. Due to her habitus ctx many not be easily monitored. She c/o cramping every two minutes. My initial impression is she is stressed due to lackof sleep, that makes her cramp more. So I gave her Ambien, Phenerga 25 mg q 6 hrs w/o improvement. So now I have to give her Magnesium in case she has nonmonitorable ctx.Plan: Finished Celestone series. Start Magnesium. Gave her IVF for ketonuria at 2244 RPT #:[id number] OF REPORT PRProgress jiam0153-49-15F33:39:00F.XNRC193 [address]-6[address]MLRrjypghpc for patient aouvBONNOREILAEQRZ8386-63-14A63: 44:13 [facility] 2022-05-12 22:36:00 [id number]/uOB L6BBESbhRcmN BO8Wbx42x8wBsUPBfty/MytiW3F3JOUK BaZMlyYzDHF0j2Yk4966-19-34I94:36 :00 [facility] ([facility])OB Admission / H PREPORT#:[id number] REPORT STATUS: SignedDATE:05/12/22 TIME: 2235 PATIENT: SHARYN RUSSELL UNIT #: [id number]#: [id number] ROOM/BED: [facility]-ADOB: [birth year] AGE: 31 SEX: F ATTEND: Abel Mcgovern MDADM AUTHOR: Abel Mcgovern MD * ALL edits or amendments must be made on the electronic/computer document * OB History Nursing Documentation ReviewNursing data:The data set between the solid lines has been imported from nursing documentation. Any exceptions have been noted below under Provider comments. Current dataSteroids prior to arrival: ROM date: ROM time: EDC date: 06/16/22Gestational age (labor triage): Post hemorrhage risk score: Medium Risk for Hemorrhage. Prior historyGravida: 4 Para: 2 Term: : Abortions spontaneous: Abortions induced: Living children: Ectopic: Stillbirths: Live births: deaths: Number of previous C/S: Reported maternal labs/dataBlood type: UnknownRh type: Rubella: Hepatitis B: HIV exposure test: UnknownVDRL: Group B beta strep: Not doneRho(D) immune globulin this preg: Monitor mode - UA: Feeding preference: Provider comments on imported nursing data: [] Chief complaint: uterine contractions, nausea and vomitingHPI:Pt is a 31 y/o WF at 35 weeks c/o a few days' h/o N/V. Now she has abdominal cramps. She denies VB, ROM, MERIDA, scotomata, RUQP, EP. Shew had her second C/S on 05/06/2021. She c/o pain over the uterine scar areaPregnancy history: : 4 Term: 2 Living children: 2 Previous : low uterine trans incis Number of prev : 2Current : Best EDC: 06/16/22 Admission EGA (weeks) 35Labs: Blood type: O Rh: positive Rubella: immune Hepatitis B: negative HIV: negative STD: negative Syphilis: currently negative GBS: unknown Past HistoryPast Medical History:Denies: Alcoholism/subst abuse, Anemia, Arthritis, Asthma, Atrial fibrillation, Cancer, Congestive heart failure, COPD, Coronary artery disease, Dementia, Depression/mood disorder, Diabetes mellitus, GERD/gastritis, Hypertension, Kidney disease/stones, Seizure disorder, Transient ischemic attack, , Abdominal aortic aneurysm, ADD/ADHD, AIDS, Angina pectoris, Anticoagulant therapy, Atrial flutter, Bleeding disorder, BPH, C diff colitis, Cardiac dysrhythmias, Chronic pain, Cirrhosis, Congenital anomalies, Dyslipidemia, Gallbladder dis/stones, GI bleed, Glaucoma, Headache disorder, Hepatitis, HIV, Intracranial hemorrhage, Ischemic stroke, Motor dysfunction, Pancreatitis, Peptic ulcer disease, Periph arterial disease, Pressure ulcer, Prior MN, Schizophrenia, Sickle cell disease, Steroid use, Thyroid disorder, Transfusion history, Tuberculosis, Urinary tract infection, Venous thromboembolism. Past Surgical History:Reports: . Denies: Abdominal surgery, Appendectomy, Bariatric procedure, CABG, Carotid endarterectomy, Cholecystectomy, Dialysis shunt/AV fistula, Heart valve procedure, Hernia repair, Hysterectomy, Pacemaker, Spine surgery, Splenectomy, Tonsillectomy, Transplant recipient, Vascular procedure, , Amputation, Anesthesia complications, Bilateral tubal ligation, Bladder surgery, Breast biopsy/procedure, Carpal tunnel release, Cranial procedure, D C, Eye surgery, Feeding tube, Hip procedure, ICD, Indwelling IV catheter, Knee procedure, Lithotripsy, Lung surgery, Nephrectomy, PCI, Prostate surgery, Thyroidectomy, Tracheotomy, PHYSICIST SOLID EARTH shunt. Alcohol Use Denies EtOH useDrug Use Denies recreational drugsSmoking status: Smoking status for patients 13 years old or older: Unknown,if ever smokedAllergies:Coded Allergies:amoxicillin (From AUGMENTIN) (Intermediate, RASH 04/14/22)clavulanic acid (From AUGMENTIN) (Intermediate, RASH 04/14/22) Objective GeneralVS:Last Documented: Result Date Time B/P Mean 78.0 05/12 1938 B/P 107/57 07/22 1938 Pulse 98 05/12 1938 Pulse Ox 98 05/12 1611 Temp 98.3 05/12 0912 Resp 18 05/12 0912 Vital Signs Date Temp Pulse Resp B/P B/P Mean Pulse Ox FiO2 05/12 98.3 75-98 18 107-137/57-75 78.0-96.0 98 PATIENT WEIGHT: Weight (lb): 226Weight (oz): 6.64Weight (kg): 102.700 Physical ExamHEENT: normocephalic w/o injuryCardiac: regular rate and rhythmLungs: clear to auscultation, no rales, no rhonchi, unlabored breathingBreasts: deferredNeuro: Exam: alert, oriented x3, normal speechAbdomen: gravid, soft, no abnormal tenderness, no guarding, no rebound tenderness, normoactive bowel soundsMusculoskeletal: normal inspectionGenitourinary: no bladder distentionUterine activity: Monitor: toco Frequency (description): irritabilityPelvic exam: Pelvis clinically adequate: yes Vulvar lesions: noneMembranes: Membranes: IntactLower extremities: Edema: noneBaby A: Baby A baseline: 125 bpm Baby A variability: marked > 25 bpm Baby A accelerations: 15 X 15 Baby A decelerations: none Baby A FHR category: category 1 ResultsFindings/Data:Laboratory Tests: 05/12 05/12 1005 0922 Serology SARS-CoV-2 Ag (Rapid) (NEGATIVE) NEGATIVE Urines Urine Color (YELLOW) YELLOW Urine Appearance (CLEAR) Slightly-Cloudy Urine pH (5 - 9) 6.0 Ur Specific [place] (1.001 - 1.035) 1.019 Urine Protein (NEG) [...] SEEN) RARE Diagnosis, Assessment Plan Diagnosis, Assessment PlanAssessment/Impression: vomiting, dehydration ketonuriaPlan: antiemetics, IVF, betamethasone admin at 2252 RPT #:[id number] OF REPORT HPHistory and physical gcofprfgudj6358-94-99J08:36:00F. INPE76510722-1165JOXceolweqw for patient pkerWYKDZKGPXLONIW4927-53-17D01: 53:04 [facility] 2022-04-14 22:41:00 [id number] u5CuWwa3zSLf A8QfXh0lOWoGAN6f/eOz3pVznMcUBzUJ 7mi0EECy6l4s9a+o0735-96-04W48:41 :00 [facility] ([facility])ZENAIDA Evaluation NoteREPORT#:[id number] REPORT STATUS: SignedDATE:04/14/22 TIME: 2240 PATIENT: SHARYN RUSSELL UNIT #: [id number]#: [id number] ROOM/BED:: 92 AGE: 31 SEX: F ATTEND: Abel Mcgovern MDADM DT: AUTHOR: Abel Mcgovern MD * ALL edits or amendments must be made on the electronic/computer document * See AddendumZENAIDA History Nursing Documentation ReviewNursing data:The data set between the solid lines has been imported from nursing documentation. Any exceptions have been noted below under Provider comments. Current dataSteroids prior to arrival: ROM date: ROM time: EDC date: 06/27/22Gestational age (labor triage): Post hemorrhage risk score: Prior historyGravida: 4 Para: 2 Term: : Abortions spontaneous: Abortions induced: Living children: Ectopic: Stillbirths: Live births: deaths: Number of previous C/S: Reported maternal labs/dataBlood type: Rh type: Rubella: Hepatitis B: HIV exposure test: UnknownVDRL: Group B beta strep: Rho(D) immune globulin this preg: Monitor mode - UA: Feeding preference: Provider comments on imported nursing data: [] Chief complaint: suspected ruptured memb, decreased movement, discomfortHPI:Pt is a 31 y/o WF at 29 3/7 wks c/o acute onset of leaking large amount amniotic fluid. She c/o decreased movement. She also c/o feeling warm.She denies ctx, VB, MERIDA, scotomata, RUQP, EPPregnancy history: : 5 Term: 2 Abortus: 2 Living children: 2 Previous : low uterine trans incis Number of prev : 2Current : EDC: 06/27/22 EGA (weeks/days): 29 3/7 WKSLabs: Blood type: O Rh: positive Rubella: immune Hepatitis B: negative HIV: negative RPR: non-reactive STD: negative GBS: unknownPast medical history: denies PMHPast surgical history: C-sectionSocial history: employed, , no alcohol use, no tobacco use, no drug useAllergiesCoded Allergies:amoxicillin (From AUGMENTIN) (Intermediate, RASH 04/14/22)clavulanic acid (From AUGMENTIN) (Intermediate, RASH 04/14/22) Review of SystemsConstitutional:Denies: chills, fatigue, fever. Respiratory:Denies: JEAN (dyspnea on exertion), hemoptysis, non productive cough. Cardiovascular:Denies: chest pain, JEAN (dyspnea on exertion), edema. GI:Reports: constipation. Denies: diarrhea, nausea, vomiting. :Reports: . Denies: pelvic pain, vaginal bleeding. Objective GeneralVS:Last Documented: Result Date Time B/P Mean 92.0 04/14 1644 B/P 121/72 04/14 1644 Pulse 83 04/14 1644 Vital Signs Date Temp Pulse Resp B/P B/P Mean Pulse Ox FiO2 04/14 83 121/72 92.0 PATIENT WEIGHT: Weight (lb): 220Weight (oz): 7.4Weight (kg): 100.000 Physical ExamHEENT: normocephalic w/o injuryCardiac: regular rate and rhythmLungs: clear to auscultationBreasts: deferredNeuro: Exam: alert, oriented x3, normal speechAbdomen: gravid, soft, no abnormal tenderness, no guarding, no rebound tenderness, normoactive bowel soundsMusculoskeletal: normal inspectionGenitourinary: no bladder distentionUterine activity: Monitor: toco Frequency (description): irritability FHR evaluation: Baseline: 130 bpm Variability: marked > 25 bpm Accelerations: 15 X 15 Decelerations: none FHR category: category 1Membranes: Membranes: status undeterminedLower extremities: Edema: none ResultsFindings/Data:Laboratory Tests: 04/14 164 Other Body Source Membranes Rupture NON-RUPTURED Serology SARS-CoV-2 Ag (Rapid) (NEGATIVE) NEGATIVE Diagnosis, Assessment Plan Diagnosis, Assessment PlanAssessment/Impression: symptoms of PROM but tested negative, decreased movement but now reactive NST no decel, catagory IPlan: discharge home at 1016 Addendum 1: 05/06/22 2241 by Abel Mcgovern MD NST time is 3 hours at 2241 RPT #:[id number] OF REPORT CLClinical lqxl6228-72-56Q45:41:00F.XXBB839 84754-5196BTMvkjseckt for patient lixkXHWGBARAPVHXFD7034-00-87Y53: 16:42 [facility] 2022-04-06 08:44:00 [id number] rV4WHCgDMgq4 fwTQ+kdXAgvdIN6831XDpJsU6z4HWnHT eAtYNBBE9u2m5Wyn6941-23-00X69:44 :00 [facility] ([facility])ZENAIDA Evaluation NoteREPORT#:[id number] REPORT STATUS: SignedDATE:04/06/22 TIME: 0844 PATIENT: SHARYN RUSSELL UNIT #: [id number]#: [id number] ROOM/BED:: 92 AGE: 31 SEX: F ATTEND: Abel Mcgovern DT: AUTHOR: Abel Mcgovern MD * ALL edits or amendments must be made on the electronic/computer document * ZENAIDA History Nursing Documentation ReviewNursing data:The data set between the solid lines has been imported from nursing documentation. Any exceptions have been noted below under Provider comments. Current dataSteroids prior to arrival: ROM date: ROM time: EDC date: Gestational age (labor triage): Post hemorrhage risk score: Prior historyGravida: Para: Term: : Abortions spontaneous: Abortions induced: Living children: Ectopic: Stillbirths: Live births: deaths: Number of previous C/S: Reported maternal labs/dataBlood type: Rh type: Rubella: Hepatitis B: HIV exposure test: VDRL: Group B beta strep: Rho(D) immune globulin this preg: Monitor mode - UA: Feeding preference: Provider comments on imported nursing data: [] Chief complaint: uterine contractions, discomfortHPI:Pt is a 31 y/o LAF at 28 1/7 wks c/o epigastric pain radiating to back and bilateral lower back. Pain is not related to greasy food. She denies VB, ROM, MERIDA, scotomataPregnancy history: : 5 Term: 2 Abortus: 2 Living children: 2 Previous : low uterine trans incis Number of prev : 2Current : EDC: 06/27/22 EGA (weeks/days): 28 1/7 WKSLabs: Blood type: O Rh: positive Rubella: immune Hepatitis B: negative HIV: negative RPR: non-reactive STD: negative GBS: unknownPast medical history: denies PMHPast surgical history: C-sectionSocial history: employed, , no alcohol use, no tobacco use, no drug useMedications:Home Medications: Medication Dose/Rte/Freq Days Qty Entered Last Max Daily Dose Reviewed PNV WITH FE 1 TAB PO DAILY 04/01/21 FUMARATE/FA 1323 () Strength: 1 EACH TAB Current Hospital Medications:Central Nervous System Agents Sig/Aracelis Start time Last Medication Dose Route Stop Time Status Admin Hydrocodone Bitart/ 1 TAB ONCE 04/05 2245 DC 04/05 Acetaminophen PO 04/06 0100 2331 (NORCO 5/325 TABLET) Promethazine HCl 25 MG ONCE 04/05 2245 DC 04/05 (PROMETHAZINE HCL) PO 04/06 0100 2331 AllergiesCoded Allergies:amoxicillin (From AUGMENTIN) (Intermediate, RASH 03/02/22)clavulanic acid (From AUGMENTIN) (Intermediate, RASH 03/02/22) Objective GeneralVS:Last Documented: Result Date Time B/P Mean 70.0 04/05 2245 B/P 87/63 04/05 2245 Pulse 83 04/05 2245 Vital Signs Date Temp Pulse Resp B/P B/P Mean Pulse Ox FiO2 04/05 75-90 70-101/42-63 50.0-74.0 PATIENT WEIGHT: Weight (lb): Weight (oz): Weight (kg): Physical ExamHEENT: normocephalic w/o injuryCardiac: regular rate and rhythmLungs: clear to auscultationBreasts: deferredNeuro: Exam: alert, oriented x3, normal speechAbdomen: gravid, soft, no abnormal tenderness, no guarding, no rebound tenderness, normoactive bowel soundsMusculoskeletal: normal inspectionGenitourinary: no bladder distentionUterine activity: Monitor: toco Frequency (description): nonePelvic exam: Pelvis clinically adequate: yes Vulvar lesions: none Vagina: normal Uterus size in weeks: 28 Exam: softCervical/ exam: Dilatation (cm): 0 - closed Effacement (%): 0 station: - 3 presentation: unable to assess FHR evaluation: Baseline: 140 bpm Variability: marked > 25 bpm Accelerations: 15 X 15 Decelerations: none FHR category: category 1Membranes: Membranes: IntactLower extremities: Edema: none Diagnosis, Assessment Plan Diagnosis, Assessment PlanAssessment/Impression: MUSCULOSKELETAL PAINPlan: discharge home, tried sedaqtion with Nocor-5 and phenergan 25 po. She slept for a while and pain is gone at 0855 RPT #:[id number] OF REPORT CLClinical cehr1072-01-71K21:44:00F.RIKZ352 [id number] for patient jdxgSRUMHHOYTOVBIF4022-22-35Y29: 55:51 [facility] 2022-03-02 23:39:00 [id number] vhqGDoKDknET 6U9sn8k5mLHRiXiORbJSp7tHKHXsxXvA 8AQqNvPWawNb9gsU5840-37-31F57:39 :00 [facility] ([facility])ZENAIDA Evaluation NoteREPORT#:[id number] REPORT STATUS: SignedDATE:03/02/22 TIME: 2339 PATIENT: SHARYN RUSSELL UNIT #: [id number]#: [id number] ROOM/BED:: 92 AGE: 31 SEX: F ATTEND: Abel Mcgovern DT: AUTHOR: Abel Mcgovern MD * ALL edits or amendments must be made on the electronic/computer document * ZENAIDA History Nursing Documentation ReviewNursing data:The data set between the solid lines has been imported from nursing documentation. Any exceptions have been noted below under Provider comments. Current dataSteroids prior to arrival: ROM date: ROM time: EDC date: 06/27/22Gestational age (labor triage): Post hemorrhage risk score: Prior historyGravida: 4 Para: 2 Term: : Abortions spontaneous: Abortions induced: Living children: Ectopic: Stillbirths: Live births: deaths: Number of previous C/S: Reported maternal labs/dataBlood type: Rh type: Rubella: Hepatitis B: HIV exposure test: VDRL: Group B beta strep: Rho(D) immune globulin this preg: Monitor mode - UA: Feeding preference: Provider comments on imported nursing data: [] Chief complaint: uterine contractions, discomfortHPI:Pt is a 31 y/o WF at 23 2/7 wks c/o acute onset painful contraction since 1 hour before arrival at [facility]. She denies VB, ROM, MERIDA, scotomata, RUQP, EP.She admiited her 2 y/o daughter has stumble on her abdomin 2 days ago. In the last few nights her 10-months old baby has kept her up 5 times at night so she did not get good sleeo. She deneis unprotected sex, any infection signPregnancy history: : 5 Term: 2 Abortus: 2 Living children: 2 Previous : low uterine trans incisCurrent : EDC: 06/27/22 EGA (weeks/days): 35 weeks (23 2/7 ws), 23 2/7 wksLabs: Blood type: O Rh: positive Rubella: immune Hepatitis B: negative HIV: negative RPR: non-reactive STD: negative GBS: unknownPast medical history: denies PMHPast surgical history: C-sectionSocial history: employed, , no alcohol use, no tobacco use, no drug useAllergiesCoded Allergies:amoxicillin (From AUGMENTIN) (Intermediate, RASH 03/02/22)clavulanic acid (From AUGMENTIN) (Intermediate, RASH 03/02/22) Review of SystemsConstitutional:Denies: chills, fatigue, fever. Respiratory:Denies: JEAN (dyspnea on exertion), hemoptysis, non productive cough. Cardiovascular:Denies: chest pain, JEAN (dyspnea on exertion), edema. GI:Reports: constipation. Denies: diarrhea, nausea, vomiting. :Reports: pelvic pain, . Denies: vaginal bleeding. Objective GeneralVS:PATIENT WEIGHT: Weight (lb): 215Weight (oz): 6.27Weight (kg): 97.700 Physical ExamHEENT: normocephalic w/o injuryCardiac: regular rate and rhythmLungs: clear to auscultationBreasts: deferredNeuro: Exam: alert, oriented x3, normal speechAbdomen: gravid, soft, no abnormal tenderness, no guarding, no rebound tenderness, normoactive bowel soundsMusculoskeletal: normal inspectionGenitourinary: no bladder distentionUterine activity: Monitor: toco Frequency (description): regular Frequency (minutes): 4 Duration (seconds): 45 Intensity: moderate Tachysystole: NoPelvic exam: Pelvis clinically adequate: yes FHR evaluation: Baseline: 130 bpm Variability: marked > 25 bpm Accelerations: 15 X 15 Decelerations: none FHR category: category 1Membranes: Membranes: IntactLower extremities: Edema: none ResultsFindings/Data:Laboratory Tests: 03/02 1405 Urines Urine Color (YELLOW) STRAW Urine Appearance (CLEAR) Slightly-Cloudy Urine pH (5 - 9) 7.0 Ur Specific [place] (1.001 - 1.035) 1.006 Urine Protein (NEG) [...] SEEN) RARE Diagnosis, Assessment Plan Diagnosis, Assessment PlanAssessment/Impression: no evidence of laborComments:Pt felt better after IV hydration and Morphine 4 mg IV and Phenergan 25 mg po at 2349 RPT #:[id number] OF REPORT CLClinical apzr4571-99-04B54:39:00F.RADW811 [id number] for patient plwtJPTYGUFFRWNODY3716-56-90D44: 49:30 [facility] 2021-05-08 15:39:00 JGpeirvxeto46440166V Y+RKNduxAPil E1hwyRuVTFhuGInk6bRsTP2MzrRq0B6x CG9QOSIJUmhblG/SXU/9068-98-57L50 :39:00 [facility] ([facility])OB Disch PostpartumREPORT#:[id number] REPORT STATUS: SignedDATE:05/08/21 TIME: 1538 PATIENT: SHARYN RUSSELL UNIT #: [id number]#: [id number] ROOM/BED: 1997-ADOB: [birth year] AGE: 30 SEX: F ATTEND: Abel Mcgovern [facility] AUTHOR: Abel Mcgovern MD * ALL edits or amendments must be made on the electronic/computer document * Subjective SubjectiveAdmission EGA: Weeks: 38 Days: 0EGA at delivery (wks/days): 38 weeksStatus/day: post , post operativePatient reports: Patient reports: No: complaints. Nursing reports: Nursing reports: No: complaints. Objective GeneralVS:Vital Signs Date Temp Pulse Resp B/P B/P Mean Pulse Ox FiO2 05/07-05/08 98.0-98.1 64-71 18 90-103/53-65 Last Documented: Result Date Time B/P 05/08 07 Temp 98.0 05/08 0715 Pulse 71 05/08 0715 Resp 18 05/08 0715 Pulse Ox 99 05/07 0400 B/P Mean 89.0 05/06 1815 PATIENT WEIGHT: Weight (lb): Weight (oz): Weight (kg): 98.096264 Physical ExamCardiac: normal rhythmLungs: clear to auscultationNeuro: Exam: alert, oriented x3, normal speechAbdomen: post gravid, soft, no abnormal tenderness, no guarding, no rebound tenderness, normoactive bowel soundsIncision site: well approximated edges, dry, no drainage, no inflammationLower extremities: Edema: none ResultsFindings/Data:Laboratory Tests: 05/07 05/06 0812 1621 Hematology WBC [...] % (Auto) (14.5 - 29.7 %) 18.7 [place] % (Auto) (3.6 - 10.2 %) 4.8 Eos % (Auto) (0.0 - 3.0 %) 0.2 Baso % (Auto) (0.1 - 0.9 %) 0.2 Neut # (Auto) (K/mm3) 9.4 Lymph # (Auto) (K/mm3) 2.3 [place] # (Auto) (K/mm3) 0.6 Eos # (Auto) (K/mm3) 0.03 Baso # (Auto) (K/mm3) 0.0 Other Body Source Membranes Rupture RUPTURED Discharge Summary GeneralAssessment: nml progress, acute blood loss anemia, chronic anemia from pregnancyHospital course: repeat LTCS in labor, epidural anesthesia, spinal anesthesia, nml postop/postpart care, chronic anemia from , acute blood loss anemiaDischarge condition: stableDischarge to: Home/Self CareBaby A: status: live born Gender: female 1 minute: 8 5 minutes: 8 Anomalies:nonePlan: routine care Discharge InstructionsInstructions: specific instr as notedDiet: RegularActivity: As ToleratedAdditional discharge routines: Attending Follow-UpDischarge meds:Continue taking these medications:FERROUS SULFATE (FEOSOL) 325 MG TAB 325 MILLIGRAM ORAL DAILY. PNV WITH FE FUMARATE/FA () 1 EACH TAB 1 TABLET ORAL DAILY. Start taking the following new medications:ACETAMINOPHEN/CODEIN E (TYLENOL WITH CODEINE #3 300/30 MG) 300 MG-30 MG TAB 2 TABLET ORAL EVERY 6 HOURS NEEDED. as needed for pain Qty = 30 No Refills IBUPROFEN (MOTRIN) 600 MG TAB 600 MILLIGRAM ORAL EVERY 6 HOURS. Qty = 60 No Refills Prescriptions: e-prescribe Add'l Follow-up AppointmentsAttending Physician: Attending Physician: Abel Mcgovern MD Attending physician follow up timeframe: In 1-2 weeks at 1541 RPT #:[id number] OF REPORT OBObstetric jgwi5153-99-89Y75:39:00F.HBQT535 [address]-3903APKkfwbsmnz for patient tkpzHLGTLIOTRMQFGM5589-39-07Q52: 42:21 [facility] 2021-05-07 13:34:00 [id number] ZL6XN+hv+Bfa vmc051e85tKWQFI86SNlYLb/gKKq7F2W NtI++AHzTvmfDHTGzls6676-87-38B81 :34:00 [facility] ([facility])OB Postpart Progr NoteREPORT#:[id number] REPORT STATUS: SignedDATE:05/07/21 TIME: 1334 PATIENT: SHARYN RUSSELL UNIT #: [id number]#: [id number] ROOM/BED: OB: 92 AGE: 30 SEX: F ATTEND: Abel Mcgovern MDADM AUTHOR: Abel Mcgovern MD * ALL edits or amendments must be made on the electronic/computer document * Subjective SubjectiveAdmission EGA: Weeks: 38 Days: 0EGA at delivery (wks/days): 38 weeksStatus/Day: post , post operativePatient reports: Patient reports: No no complaintsNursing reports: Nursing reports: No complaints Objective Nursing Documentation ReviewNursing Data:The data set between the solid lines has been imported from nursing documentation. Any exceptions have been noted below under Provider comments. Feeding preference: Post hemorrhage risk score: Medium Risk for Hemorrhage. Provider comments on imported nursing data: [] Physical ExamCardiac: normal sinus rhythmLungs: clear to auscultationNeuro: Exam: alert, oriented x3, normal speechAbdomen: soft, no abnormal tenderness, no guarding, no rebound tendernessIncision site: well approximated edges, dry, no drainage, no inflammation ResultFindings/Data:Laboratory Tests: 05/07 05/06 0812 1621 Hematology WBC [...] % (Auto) (14.5 - 29.7 %) 18.7 [place] % (Auto) (3.6 - 10.2 %) 4.8 Eos % (Auto) (0.0 - 3.0 %) 0.2 Baso % (Auto) (0.1 - 0.9 %) 0.2 Neut # (Auto) (K/mm3) 9.4 Lymph # (Auto) (K/mm3) 2.3 [place] # (Auto) (K/mm3) 0.6 Eos # (Auto) [...] RECD PLACENTA Diagnosis, Assessment Plan Diagnosis, Assessment PlanAssessment: nml progress, acute blood loss anemia, chronic anemia from pregnancyPlan: routine care at 1335 RPT #:[id number] OF REPORT PRProgress Fjiy5709-49-86G14:34:00F.NXBT884 [address]-6[address]KWNaitepuxf for patient taheVGZVBLGOQCVCDF3536-05-25G72: 35:59 [facility] 2021-05-06 16:07:00 GTddjwohpdc84763139J F5LajvCrI1Z6 iTnNzlQCIWtLOhPaRTIkpFxryn29trr3 h0gsUaiyYAXAZx4uBCC3106-79-64P15 :07:024143-3404 [facility] [place] [id number] PATIENT NAME: SHARYN RUSSELL ADMIT DATE: 05/06/21ACCOUNT NO: [id number] ROOM NO: .1997 AGE: 30 SEX: F ADMITTING PHYSICIAN: Abel Mcgovern MD ATTENDING PHYSICIAN: Abel Mcgovern MD OPERATION DATE: 05/06/2021 PREOPERATIVE DIAGNOSES:1. A 38 weeks gestation.2. Previous section.3. Prolonged premature rupture of membranes.4. Low-grade temperature. POSTOPERATIVE DIAGNOSES:1. A 38 weeks gestation.2. Previous section.3. Prolonged premature rupture of membranes.4. Low-grade temperature. PROCEDURES: Repeat low transverse section. SURGEON: Abel Mcgovern MD GROUP PRODUCT MANAGER: Dr. Presley Ortiz, an conventions assistant needed since section is acomplicated procedure requiring 2 person operation. ANESTHESIA: Spinal and epidural. ANESTHESIOLOGIST: Dr. Bolden. ESTIMATED BLOOD LOSS: 600 mL. All instrument and lap counts correct x3.FINDINGS: Viable female infant in vertex presentation with nuchal cord x1,loose, reduced. weight is 2940 grams. Apgars 8 at 1 minute and 8 at 5minutes. Normal uterus, ovaries, fallopian tubes. PROCEDURE IN DETAIL: The patient was taken to OR where spinal and epiduralanesthesia was placed by Dr. Bolden. The patient was placed on the operatingtable in left tilt position. Adequate level of anesthesia was confirmed.Abdomen was prepped and draped in usual sterile fashion. A Pfannenstiel skinincision performed with a scalpel. Abdomen was entered in usual fashion withoutdifficulty. Bladder was retracted with a bladder blade. Low transverse uterineincision was performed with a scalpel. Clear amniotic fluid was noted.Lending Manager's right hand reached over baby's head and conventions assistant applied fundalpressure, baby was easily delivered. Nose and mouth were suctioned. Cord wasdouble clamped and cut between two clamps. Baby was passed to nurse. Cordblood was obtained. Placenta manually extracted. Uterus cleaned inside PATIENT NAME: SHARYN RUSSELL abdominal cavity. The uterine incision repaired with #1 chromic inrunning-locking fashion. Hemostasis was achieved with qrhhsqznzdjlgdde-cn-tvthd suture. Abdomen was cleaned with moist lap, hemostasis wasobserved. Peritoneum was approximated with 0 Vicryl in simple running fashion.Rectus abdominis muscle reapproximated with 0 Vicryl in simple running fashion.Fascia reapproximated with #1 Vicryl in simple running fashion. Thesubcutaneous space was cleaned with moist lap. Hemostasis was achieved withBovie. Subcutaneous fat was reapproximated with 2-0 plain gut. Skin wasapproximated with 3-0 Monocryl subcuticular stitch. Dermabond was used to sealthe skin. Afterward, the patient was transferred to recovery room in stablecondition. All instrument and lap counts correct x3. Dictated By: Abel Mcgovern MD WT: OP:FLIZBETH/TERELL/NTSDD: 05/06/2021 16:07:15DT: 05/06/2021 23:11:07Conf#: [id number]/DID#: [id number] Authenticated and Edited by Abel Mcgovern MD On 05/07/21 9:26:37 AM at 0929 PATIENT NAME: SHARYN RUSSELL sncfev1638-49-57V20:11:00F.HIM20 [id number] for patient wkarSGZYYWZEJRIGHB4985-63-82I05: 30:00 [facility] 2021-05-06 16:06:00 UQpsigvwgrd63829125x nPja105DRMG/ xxKQQ2vA4R3WYDj4j0cK+OE8d3LmdPDQ JzXvI18R/OJlfgSpuE53282-71-26N55 :06:00 [facility] ([facility])OB Delivery NoteREPORT#:[id number] REPORT STATUS: SignedDATE:05/06/21 TIME: 1606 PATIENT: SHARYN RUSSELL UNIT #: [id number]#: [id number] [address] [birth year] AGE: 30 SEX: F ATTEND: Abel Mcgovern MDADM AUTHOR: Abel Mcgovern MD * ALL edits or amendments must be made on the electronic/computer document * OB Delivery Nursing Documentation ReviewNursing data:The data set between the solid lines has been imported from nursing documentation. Any exceptions have been noted below under Provider comments. ROM date: ROM time: Membranes rupture method: Amniotic fluid color: Amniotic fluid amount: Steroids prior to arrival: Antibiotic prophylaxis given: YesPost hemorrhage risk score: Medium Risk for Hemorrhage. Delivery date infant A: 05/06/21 Delivery time infant A: 1509Birthweight (gm) A: 2940Weight (lb) infant A: Weight (oz) A: Gender A: FemaleApgar 1 minute A: 5 minutes infant A: 10 minutes A: Cord pH obtained A: Vacuum time infant A: Vacuum # pulls A: Vacuum # popoffs A: QBL at delivery: Provider comments on imported nursing data: [] Pre-deliveryGBS status: GBS status: negativeNewborn evaluation at delivery: NNPAdmission EGA: Weeks: 37 Days: 6EGA at delivery (wks/days): 37 6/7 weeks Baby A InformationBaby A information Delivery date: 05/06/21 Delivery time: 1509 status: live born Wt of baby (grams): 2940 Gender: female 1 minute: 8 5 minutes: 8 Presentation: vertex Anomalies:noneABG details Baby A Cord blood gases: not collectedNuchal cord Baby A Nuchal cord: yes (loose and reduced) Anomalies:none DeliveryCesarean section indication: previous , PPROM Priority: urgent Antibiotic prior to incision: 1 dose )(SCDs applied activated: Yes Uterine incision: low transverse Uterine scar: intact Consent: indication discussed, questions answered, pt consent to op delivery Mother's condition: mother stable Infant's condition: infant stable in room Blood Loss/DetailsBlood loss at delivery: 600 mL at 1622 [facility] #:[id number] OF REPORT OBObstetric bnbs2059-04-11E93:06:00F.HPRE252 [id number] for patient tzilAZPCYOHVHLLBWA5254-83-92F29: 22:55 [facility] 2021-05-06 14:04:00 UIoijrleuzy08692451W m/+Ssq++JnMb APSneDcotXZ07yotGIJtPu/uVAGgAljv UukdYye1P5jvvSOvJIK0858-50-45H11 :04:00 [facility] ([facility])OB Admission / H PREPORT#:[id number] REPORT STATUS: SignedDATE:05/06/21 TIME: 1403 PATIENT: SHARYN RUSSELL UNIT #: [id number]#: [id number] ROOM/BED: F.LDO-LDOB: [birth year] AGE: 30 SEX: F ATTEND: Abel Mcgovern AUTHOR: Abel Mcgovern MD * ALL edits or amendments must be made on the electronic/computer document * OB History Nursing Documentation ReviewNursing data:The data set between the solid lines has been imported from nursing documentation. Any exceptions have been noted below under Provider comments. Current dataSteroids prior to arrival: ROM date: ROM time: EDC date: 05/20/21Gestational age (labor triage): Post hemorrhage risk score: Medium Risk for Hemorrhage. Prior historyGravida: 3 Para: 1 Term: : Abortions spontaneous: Abortions induced: Living children: Ectopic: Stillbirths: Live births: deaths: Number of previous C/S: Reported maternal labs/dataBlood type: Rh type: Rubella: Hepatitis B: HIV exposure test: VDRL: Group B beta strep: Rho(D) immune globulin this preg: Monitor mode - UA: Feeding preference: Provider comments on imported nursing data: [] Chief complaint: suspected ruptured membHPI:Pt is a 30 y/o LAF at 37 6/7 weeks c/o leaking fluid since yesterday morning. She denies VB, ctx, MERIDA, scotomata, RUQP, EPPregnancy history: : 3 Term: 1 Abortus: 1 Living children: 1 Previous : low uterine trans incisCurrent : Admission EGA (weeks) 38 Admission EGA (days) 0Labs: Blood type: O Rh: positive Rubella: non-immune Hepatitis B: negative HIV: negative STD: negative Syphilis: currently negative GBS: negative Past HistoryPast Medical History:Denies: Alcoholism/subst abuse, Anemia, Arthritis, Asthma, Atrial fibrillation, Cancer, Congestive heart failure, COPD, Coronary artery disease, Dementia, Depression/mood disorder, Diabetes mellitus, GERD/gastritis, Hypertension, Kidney disease/stones, Seizure disorder, Transient ischemic attack, , Abdominal aortic aneurysm, ADD/ADHD, AIDS, Angina pectoris, Anticoagulant therapy, Atrial flutter, Bleeding disorder, BPH, C diff colitis, Cardiac dysrhythmias, Chronic pain, Cirrhosis, Congenital anomalies, Dyslipidemia, Gallbladder dis/stones, GI bleed, Glaucoma, Headache disorder, Hepatitis, HIV, Intracranial hemorrhage, Ischemic stroke, Motor dysfunction, Pancreatitis, Peptic ulcer disease, Periph arterial disease, Pressure ulcer, Prior MN, Schizophrenia, Sickle cell disease, Steroid use, Thyroid disorder, Transfusion history, Tuberculosis, Urinary tract infection, Venous thromboembolism. Past Surgical History:Reports: . Denies: Abdominal surgery, Appendectomy, Bariatric procedure, CABG, Carotid endarterectomy, Cholecystectomy, Dialysis shunt/AV fistula, Heart valve procedure, Hernia repair, Hysterectomy, Pacemaker, Spine surgery, Splenectomy, Tonsillectomy, Transplant recipient, Vascular procedure, , Amputation, Anesthesia complications, Bilateral tubal ligation, Bladder surgery, Breast biopsy/procedure, Carpal tunnel release, Cranial procedure, D C, Eye surgery, Feeding tube, Hip procedure, ICD, Indwelling IV catheter, Knee procedure, Lithotripsy, Lung surgery, Nephrectomy, PCI, Prostate surgery, Thyroidectomy, Tracheotomy, PHYSICIST SOLID EARTH shunt. Alcohol Use Denies EtOH useDrug Use Denies recreational drugsSmoking status: Smoking status for patients 13 years old or older: Never SmokerMedications:Home Medications:FERROUS SULFATE (FEOSOL) 325 MG PO DAILY PNV WITH FE FUMARATE/FA () 1 TAB PO DAILY Allergies:Coded Allergies:amoxicillin (From AUGMENTIN) (Intermediate, RASH 04/01/21)clavulanic acid (From AUGMENTIN) (Intermediate, RASH 04/01/21) Review of SystemsConstitutional:Denies: chills, fatigue, fever. Respiratory:Denies: JEAN (dyspnea on exertion), hemoptysis, non productive cough. Cardiovascular:Denies: chest pain, JEAN (dyspnea on exertion), edema. GI:Reports: constipation. Denies: diarrhea, nausea, vomiting. :Reports: pelvic pain, . Denies: vaginal bleeding. Objective GeneralVS:PATIENT WEIGHT: Weight (lb): Weight (oz): Weight (kg): 98.632803 Physical ExamHEENT: normocephalic w/o injuryCardiac: regular rate and rhythmLungs: clear to auscultationBreasts: deferredNeuro: Exam: alert, oriented x3, normal speechAbdomen: gravid, soft, no abnormal tenderness, no guarding, no rebound tendernessMusculoskeletal: normal inspectionGenitourinary: no bladder distentionUterine activity: Monitor: toco Frequency (description): nonePelvic exam: Pelvis clinically adequate: yes Vulvar lesions: none Vagina: normalCervical/ exam: Dilatation (cm): 0 - closed Effacement (%): 50 station: - 3Membranes: Membranes: PPROM ROM date: 05/05/21 ROM time: 1000 Amniotic fluid: clear Odor: none Amount: smallLower extremities: Edema: noneBaby A: Baby A baseline: 145 bpm Baby A variability: marked > 25 bpm Baby A accelerations: 15 X 15 Baby A decelerations: none Baby A FHR category: category 1 ResultFindings/Data:Laboratory Tests: 05/06 1250 Hematology WBC (6.5 - [...] % (Auto) (14.5 - 29.7 %) 21.3 [place] % (Auto) (3.6 - 10.2 %) 10.3 H Eos % (Auto) (0.0 - 3.0 %) 0.6 Baso % (Auto) (0.1 - 0.9 %) 0.4 Neut # (Auto) (K/mm3) 6.3 Lymph # (Auto) (K/mm3) 2.0 [place] # (Auto) (K/mm3) 1.0 Eos # (Auto) (K/mm3) 0.06 Baso # (Auto) (K/mm3) 0.0 Diagnosis, Assessment Plan Diagnosis, Assessment PlanAssessment/Impression: PROM 37-38 weeks, 6 days, previous C/S, in laborPlan: at 1410 RPT #:[id number] OF REPORT HPHistory and physical exfrnxzvtaj5769-54-89O77:04:00F. VIJR63600066-5494WRVtbhuhtzp for patient raltZABBACPLECXGIZ0946-50-81K38: 10:17 [facility] 2021-05-06 14:04:00 [id number] t0UgMuwjK8md MZE6GpVsojDlEllhHnsi0dwZp+wrP5fB YDeVNv50wqxiGCYUe9w8942-20-64Y75 :04:00 [facility] ([facility])OB Admission / H PREPORT#:[id number] REPORT STATUS: SignedDATE:05/06/21 TIME: 1404 PATIENT: SHARYN RUSSELL UNIT #: [id number]#: [id number] ROOM/BED: HectorADOB: [birth year] AGE: 30 SEX: F ATTEND: Abel Mcgovern AUTHOR: Abel Mcgovern MD * ALL edits or amendments must be made on the electronic/computer document * See AddendumOB History Nursing Documentation ReviewNursing data:The data set between the solid lines has been imported from nursing documentation. Any exceptions have been noted below under Provider comments. Current dataSteroids prior to arrival: ROM date: ROM time: EDC date: 05/20/21Gestational age (labor triage): Post hemorrhage risk score: Medium Risk for Hemorrhage. Prior historyGravida: 3 Para: 1 Term: : Abortions spontaneous: Abortions induced: Living children: Ectopic: Stillbirths: Live births: deaths: Number of previous C/S: Reported maternal labs/dataBlood type: Rh type: Rubella: Hepatitis B: HIV exposure test: VDRL: Group B beta strep: Rho(D) immune globulin this preg: Monitor mode - UA: Feeding preference: Provider comments on imported nursing data: [] Chief complaint: suspected ruptured membHPI:Pt is a 30 y/o LAF at 37 6/7 weeks c/o leaking fluid since yesterday morning. She denies VB, ctx, MERIDA, scotomata, RUQP, EPPregnancy history: : 3 Term: 1 Abortus: 1 Living children: 1 Previous : low uterine trans incisCurrent : Admission EGA (weeks) 38 Admission EGA (days) 0Labs: Blood type: O Rh: positive Rubella: non-immune Hepatitis B: negative HIV: negative STD: negative Syphilis: currently negative GBS: negative Past HistoryPast Medical History:Denies: Alcoholism/subst abuse, Anemia, Arthritis, Asthma, Atrial fibrillation, Cancer, Congestive heart failure, COPD, Coronary artery disease, Dementia, Depression/mood disorder, Diabetes mellitus, GERD/gastritis, Hypertension, Kidney disease/stones, Seizure disorder, Transient ischemic attack, , Abdominal aortic aneurysm, ADD/ADHD, AIDS, Angina pectoris, Anticoagulant therapy, Atrial flutter, Bleeding disorder, BPH, C diff colitis, Cardiac dysrhythmias, Chronic pain, Cirrhosis, Congenital anomalies, Dyslipidemia, Gallbladder dis/stones, GI bleed, Glaucoma, Headache disorder, Hepatitis, HIV, Intracranial hemorrhage, Ischemic stroke, Motor dysfunction, Pancreatitis, Peptic ulcer disease, Periph arterial disease, Pressure ulcer, Prior MN, Schizophrenia, Sickle cell disease, Steroid use, Thyroid disorder, Transfusion history, Tuberculosis, Urinary tract infection, Venous thromboembolism. Past Surgical History:Reports: . Denies: Abdominal surgery, Appendectomy, Bariatric procedure, CABG, Carotid endarterectomy, Cholecystectomy, Dialysis shunt/AV fistula, Heart valve procedure, Hernia repair, Hysterectomy, Pacemaker, Spine surgery, Splenectomy, Tonsillectomy, Transplant recipient, Vascular procedure, , Amputation, Anesthesia complications, Bilateral tubal ligation, Bladder surgery, Breast biopsy/procedure, Carpal tunnel release, Cranial procedure, D C, Eye surgery, Feeding tube, Hip procedure, ICD, Indwelling IV catheter, Knee procedure, Lithotripsy, Lung surgery, Nephrectomy, PCI, Prostate surgery, Thyroidectomy, Tracheotomy, PHYSICIST SOLID EARTH shunt. Alcohol Use Denies EtOH useDrug Use Denies recreational drugsSmoking status: Smoking status for patients 13 years old or older: Never SmokerMedications:Home Medications:FERROUS SULFATE (FEOSOL) 325 MG PO DAILY PNV WITH FE FUMARATE/FA () 1 TAB PO DAILY Allergies:Coded Allergies:amoxicillin (From AUGMENTIN) (Intermediate, RASH 04/01/21)clavulanic acid (From AUGMENTIN) (Intermediate, RASH 04/01/21) Review of SystemsConstitutional:Denies: chills, fatigue, fever. Respiratory:Denies: JEAN (dyspnea on exertion), hemoptysis, non productive cough. Cardiovascular:Denies: chest pain, JEAN (dyspnea on exertion), edema. GI:Reports: constipation. Denies: diarrhea, nausea, vomiting. :Reports: pelvic pain, . Denies: vaginal bleeding. Objective GeneralVS:PATIENT WEIGHT: Weight (lb): Weight (oz): Weight (kg): 98.122503 Physical ExamHEENT: normocephalic w/o injuryCardiac: regular rate and rhythmLungs: clear to auscultationBreasts: deferredNeuro: Exam: alert, oriented x3, normal speechAbdomen: gravid, soft, no abnormal tenderness, no guarding, no rebound tendernessMusculoskeletal: normal inspectionGenitourinary: no bladder distentionUterine activity: Monitor: toco Frequency (description): nonePelvic exam: Pelvis clinically adequate: yes Vulvar lesions: none Vagina: normalCervical/ exam: Dilatation (cm): 0 - closed Effacement (%): 50 station: - 3Membranes: Membranes: PPROM ROM date: 05/05/21 ROM time: 1000 Amniotic fluid: clear Odor: none Amount: smallLower extremities: Edema: noneBaby A: Baby A baseline: 145 bpm Baby A variability: marked > 25 bpm Baby A accelerations: 15 X 15 Baby A decelerations: none Baby A FHR category: category 1 ResultFindings/Data:Laboratory Tests: 05/06 1250 Hematology WBC (6.5 - [...] % (Auto) (14.5 - 29.7 %) 21.3 [place] % (Auto) (3.6 - 10.2 %) 10.3 H Eos % (Auto) (0.0 - 3.0 %) 0.6 Baso % (Auto) (0.1 - 0.9 %) 0.4 Neut # (Auto) (K/mm3) 6.3 Lymph # (Auto) (K/mm3) 2.0 [place] # (Auto) (K/mm3) 1.0 Eos # (Auto) (K/mm3) 0.06 Baso # (Auto) (K/mm3) 0.0 Diagnosis, Assessment Plan Diagnosis, Assessment PlanAssessment/Impression: PROM 37-38 weeks, 6 days, previous C/S, in laborPlan: at 1410 Addendum 1: 05/08/21 1544 by Abel Mcgovern MD actually pt is 38 weeks at 1544 RPT #:[id number] OF REPORT HPHistory and physical jlpgxdirwcn0417-90-20N54:04:00F. [id number] for patient pfbtMTGOIGMHDOYWXO5774-52-42S22: 44:42 [facility] 2021-04-20 20:40:00 [id number] WSbDNAAj/U2g ZjdKwppbMEj90iiZf0DxCvbXnC9hm04g 2UJZ1IgxvfAWZmlzz5q0001-67-90Z38 :40:00 [facility] ([facility])[place]NA[place] Evaluation NoteREPORT#:[id number] REPORT STATUS: SignedDATE:04/20/21 TIME: 2039 PATIENT: SHARYN RUSSELL UNIT #: [id number]#: [id number] ROOM/BED:: 92 AGE: 30 SEX: F ATTEND: Abel Mcgovern DT: AUTHOR: Abel Mcgovern MD * ALL edits or amendments must be made on the electronic/computer document * ZENAIDA History Nursing Documentation ReviewNursing data:The data set between the solid lines has been imported from nursing documentation. Any exceptions have been noted below under Provider comments. Current dataSteroids prior to arrival: ROM date: ROM time: EDC date: 05/20/21Gestational age (labor triage): Post hemorrhage risk score: Medium Risk for Hemorrhage. Prior historyGravida: 3 Para: 1 Term: : Abortions spontaneous: Abortions induced: Living children: Ectopic: Stillbirths: Live births: deaths: Number of previous C/S: Reported maternal labs/dataBlood type: Rh type: Rubella: Hepatitis B: HIV exposure test: VDRL: Group B beta strep: Rho(D) immune globulin this preg: Monitor mode - UA: Feeding preference: Provider comments on imported nursing data: [] Chief complaint: diarrhea, nausea and vomitingHPI:Pt is a 30 y/o AAF at 35 weeks c/o 1 day's h/o vomting and diarrhea. history: : 3 Term: 1 Abortus: 1 Living children: 1 Previous : low uterine trans incisCurrent : EDC: 05/20/21Labs: Blood type: O Rh: positive Rubella: non-immune Hepatitis B: negative HIV: negative RPR: non-reactive STD: negative GBS: unknownPast medical history: denies PMHPast surgical history: denies PSHSocial history: no alcohol use, no tobacco use, no drug useMedications:Home Medications: Medication Dose/Rte/Freq Days Qty Entered Last Max Daily Dose Reviewed FERROUS SULFATE 325 MG PO DAILY 04/01/21 (FEOSOL) 1323 Strength: 325 MG TAB PNV WITH FE 1 TAB PO DAILY 04/01/21 FUMARATE/FA 1323 () Strength: 1 EACH TAB Current Hospital Medications:Electrolytic, Caloric, And Kade Sig/Aracelis Start time Last Medication Dose Route Stop Time Status Admin Lactated Ringer's 1,000 ML BOLUS ONCE 04/20 1615 DCD 04/20 (LACTATED RINGERS) IV 04/20 2200 1701 Gastrointestinal Drugs Sig/Aracelis Start time Last Medication Dose Route Stop Time Status Admin Ondansetron HCl 4 MG ONCE ONE 04/20 1915 DC 04/20 (ZOFRAN 2 MG/ML 4 MG IV 04/20 191 1929 SYR) Loperamide HCl 2 MG Q8H PRN PRN 04/20 161 DCD 04/20 (LOPERAMIDE HCL 2 MG PO 06/19 1614 1706 CAP) Ondansetron HCl 4 MG Q6H PRN PRN 04/20 161 DCD 04/20 (ZOFRAN 2 MG/ML 4 MG IV 06/19 161 1701 SYR) AllergiesCoded Allergies:amoxicillin (From AUGMENTIN) (Intermediate, RASH 04/01/21)clavulanic acid (From AUGMENTIN) (Intermediate, RASH 04/01/21) Review of SystemsConstitutional:Denies: chills, fatigue, fever. Respiratory:Denies: JEAN (dyspnea on exertion), hemoptysis, non productive cough. Cardiovascular:Denies: chest pain, JEAN (dyspnea on exertion), edema. GI:Reports: diarrhea, nausea, vomiting. :Reports: pelvic pain, . Denies: vaginal bleeding. Objective GeneralVS:PATIENT WEIGHT: Weight (lb): 217Weight (oz): Weight (kg): 97.976 Physical ExamHEENT: normocephalic w/o injuryCardiac: regular rate and rhythmLungs: clear to auscultationBreasts: deferredNeuro: Exam: alert, oriented x3, normal speechAbdomen: gravid, soft, no abnormal tenderness, no guarding, no rebound tendernessMusculoskeletal: normal inspectionGenitourinary: no bladder distentionUterine activity: Monitor: toco Frequency (description): noneMembranes: Membranes: IntactLower extremities: Edema: none ResultsFindings/Data:Laboratory Tests: 04/20 04/20 04/20 1751 1648 1645 [...] (Auto) (14.5 - 29.7 %) 5.1 L [place] % (Auto) (3.6 - 10.2 %) 5.6 Eos % (Auto) (0.0 - 3.0 %) 0.3 Baso % (Auto) (0.1 - 0.9 %) 0.4 Neut # (Auto) (K/mm3) 9.6 Lymph # (Auto) (K/mm3) 0.6 [place] # (Auto) (K/mm3) 0.6 Eos # (Auto) (K/mm3) 0.03 Baso # (Auto) (K/mm3) 0.0 Urines Urine Color (YELLOW) YELLOW Urine Appearance (CLEAR) Slightly-Cloudy Urine pH (5 - 9) 5.0 Ur Specific [place] (1.001 - 1.035) 1.026 Urine Protein (NEG) [...] SEEN) 1+ Diagnosis, Assessment Plan Diagnosis, Assessment PlanAssessment/Impression: Food poisoning causing vomiting diarrheaPlan: discharge home at 2046 RPT #:[id number] OF REPORT OBObstetric kgis5147-17-51Z78:40:00F.NFET371 288[address]-3570WUAojmxbzte for patient gagcLOHZZCQPZNMIFR8445-23-82X06: 46:57 [facility] 2021-04-01 17:34:00 QXqqwqcpgrc61676646e u754UxJqKSPo ozNNgsHzD7iG+zX+eAwjxKjgeBjoioo+ uUItpWS2ooa/k2/oDvX0356-11-82H93 :34:00 [facility] ([facility])[place]NA[place] Evaluation NoteREPORT#:[id number] REPORT STATUS: SignedDATE:04/01/21 TIME: 1734 PATIENT: SHARYN RUSSELL UNIT #: [id number]#: [id number] ROOM/BED:: 92 AGE: 30 SEX: F ATTEND: Abel Mcgovern AUTHOR: Abel Mcgovern MD * ALL edits or amendments must be made on the electronic/computer document * ZENA[place] History Nursing Documentation ReviewNursing data:The data set between the solid lines has been imported from nursing documentation. Any exceptions have been noted below under Provider comments. Current dataSteroids prior to arrival: ROM date: ROM time: EDC date: Gestational age (labor triage): Post hemorrhage risk score: High Risk for Hemorrhage. Prior historyGravida: Para: Term: : Abortions spontaneous: Abortions induced: Living children: Ectopic: Stillbirths: Live births: deaths: Number of previous C/S: Reported maternal labs/dataBlood type: Rh type: Rubella: Hepatitis B: HIV exposure test: VDRL: Group B beta strep: Rho(D) immune globulin this preg: Monitor mode - UA: Feeding preference: Provider comments on imported nursing data: [] Chief complaint: suspected ruptured membHPI:Pt is a 30 y/o LAF at 33 weeks c/o leaking largeamount of liquid when she sneezed this morning. She denies ctx, VB, MERIDA, scotomata, RUQP, EPPregnancy history: : 3 Term: 1 Abortus: 1 Living children: 1 Previous : low uterine trans incisCurrent : EDC: 05/20/21 EGA (weeks/days): 33 weeksLabs: Blood type: O Rh: positive Rubella: non-immune Hepatitis B: negative HIV: negative RPR: non-reactive STD: negative GBS: unknownPast medical history: denies PMHPast surgical history: C-sectionSocial history: employed, , no alcohol use, no tobacco use, no drug useMedications:Home Medications: Medication Dose/Rte/Freq Days Qty Entered Last Max Daily Dose Reviewed FERROUS SULFATE 325 MG PO DAILY 04/01/21 (FEOSOL) 1323 Strength: 325 MG TAB PNV WITH FE 1 TAB PO DAILY 04/01/21 FUMARATE/FA 1323 () Strength: 1 EACH TAB AllergiesCoded Allergies:amoxicillin (From AUGMENTIN) (Intermediate, RASH 04/01/21)clavulanic acid (From AUGMENTIN) (Intermediate, RASH 04/01/21) Review of SystemsConstitutional:Denies: chills, fatigue, fever. Respiratory:Denies: JEAN (dyspnea on exertion), hemoptysis, non productive cough. Cardiovascular:Denies: chest pain, JEAN (dyspnea on exertion), edema. GI:Reports: constipation. Denies: diarrhea, nausea, vomiting. :Reports: . Denies: pelvic pain, vaginal bleeding. Objective GeneralVS:PATIENT WEIGHT: Weight (lb): Weight (oz): Weight (kg): 98.162318 Physical ExamHEENT: normocephalic w/o injuryCardiac: regular rate and rhythmLungs: clear to auscultationBreasts: deferredNeuro: Exam: alert, oriented x3, normal speechAbdomen: gravid, soft, no abnormal tenderness, no guarding, no rebound tendernessMusculoskeletal: normal inspectionGenitourinary: no bladder distentionUterine activity: Monitor: toco Frequency (description): none FHR evaluation: Baseline: 135 bpm Variability: marked > 25 bpm Accelerations: 15 X 15 Decelerations: none FHR category: category 1Membranes: Membranes: IntactLower extremities: Edema: none ResultsFindings/Data:amniosure negative Diagnosis, Assessment Plan Diagnosis, Assessment PlanAssessment/Impression: symptoms of PROM but no evidence on ROM on examPlan: discharge home at 1740 RPT #:[id number] OF REPORT OBObstetric rvdk4275-05-77U34:34:00F.HTKW783 [address]-27[address]OVSckounohv for patient frdaSBLNVJNFSRLTPQ7160-27-54T88: 40:31 [facility] 2019-11-09 08:57:00 JPmtxedfmyx87034926V E6BrXuqN7tY3 o9YAzYdCwb4lxoyCYoEvdQY3HqLbWlew pqO8b0svm5dCp9UOkrJ9575-56-62P20 :57:017975-5006 [facility] [place] [id number] PATIENT NAME: SHARYN RUSSELL ADMIT DATE: 11/05/19ACCOUNT NO: [id number] ROOM NO: F.1999 AGE: 29 SEX: F ADMITTING PHYSICIAN: Mario Ferrer III, MD ATTENDING PHYSICIAN: Mario Ferrer III, MD ADMISSION DATE: 11/05/2019DISCHARGE DATE: 11/09/2019 ADMITTING DIAGNOSES: Postdates intrauterine for induction of labor. HISTORY: The patient is a 29-year-old 2, para 0, EDC was 10/30/2019,presented late on the for elective induction of labor for postdatespregnancy. The patient has had no particular issues during the exceptfor several visits to rule out rupture of membranes in early labor and will beadmitted for postdates induction. The recent ultrasound revealed infant in the36 to 40 percentile vertex presentation and normal amniotic fluid. CURRENT MEDICATIONS: vitamin and iron. PAST MEDICAL HISTORY: She has had an ACL repair, gastric sleeve, and tonsil andadenoidectomy. LABORATORY DATA: Her blood type is O positive, GBS negative, rubella immune, GCand chlamydia negative, HIV negative, one-hour glucose 89, VDRL nonreactive. HOSPITAL COURSE: The patient underwent Cytotec induction of labor. She hadspontaneous rupture of membranes approximately 0400 on the . Pitocin wasbegun. Several hours later, Pitocin augmentation with IUPC and scalp clip wasperformed with slight change in the cervix after approximately 13 hours ofPitocin with rupture of membranes. The cervix had not dilated past 3 cm with a-2, -3 station, vertex and caput formation. A primary low transverse cesareansection was performed, which revealed an OP presentation and definiteasynclitic. The patient did well postoperatively, advanced to regular diet,discharged on postop day #3 in good condition. Preop hemoglobin was 10.1. Postop hemoglobin was 10.1. FINAL DIAGNOSES: Postdates intrauterine , relative cephalopelvicdisproportion, OP asynclitic presentation. PROCEDURE: Primary low transverse section. DISPOSITION AND PROGNOSIS: The patient dismissed in good condition, regulardiet, nonstrenuous activity. Continue vitamin with iron. She wasdismissed on nonsteroidal anti-inflammatory agents for pain. Call the officefor followup appointment in 2 to 6 weeks. Discharge instructions given onfever, wound infections, and bladder infections. Dictated By: Mario Ferrer III, MD PATIENT NAME: SHARYN RUSSELL WT: DS:ESTEFANY/JOSE R/NTSDD: 11/09/2019 08:57:11DT: 11/09/2019 17:31:59Conf#: [id number]/DID#: [id number] Authenticated by Mario Ferrer MD On 11/11/2019 01:00:32 PM at 1300 PATIENT NAME: SHARYN RUSSELL olxxrsa5078-20-17U90:31:00F.[facility] [id number] for patient lwpbIVTDHTHQNKQJXU1482-01-00K25: 01:13 [facility] 2019-11-09 08:49:00 CCkrbwrkqzv89491367f JEBuI07d9XvI Th3Suv1lkz3Wvjetuh5SiY5sv+H6K2r5 a3JPScK9GhYT8fQZsCO8249-35-69F37 :49:00 [facility] ([facility])OB Postpart Progr NoteREPORT#:[id number] REPORT STATUS: SignedDATE:11/09/19 TIME: 0849 PATIENT: SHARYN RUSSELL UNIT #: [id number]#: [id number] ROOM/BED: 1999ADOB: [birth year] AGE: 29 SEX: F ATTEND: Mario Ferrer III MDADM AUTHOR: Mario Ferrer III, MD * ALL edits or amendments must be made on the electronic/computer document * Subjective SubjectiveAdmission EGA (wks/days): 41 weeksEGA at delivery (wks/days): 41 weeksStatus/day: post , post operativePatient reports: Patient reports: Yes: normal lochia, pain management effective, tolerating po well, voiding well, voiding without pain, tolerating ambulation, flatus. No: complaints. Objective Nursing Documentation ReviewNursing data:The data set between the solid lines has been imported from nursing documentation. Any exceptions have been noted below under Provider comments. Feeding preference: Provider comments on imported nursing data: [] Physical ExamIncision site: well approximated edges, darnell intact, dryUterus: firm, involution appropriateFundus: below the umbilicusLochia: normalLacerations: Perineal laceration(s): NoneLower extremities: Edema: 1+ pitting Kayleigh's sign: negative Diagnosis, Assessment Plan Diagnosis, Assessment PlanAssessment: nml progress, anemia r/t: (Fedef)Plan: routine care, discharge todayPlan discussed with: patient, spouse/partner at 0849 RPT #:[id number] OF REPORT PRProgress Nnmp7776-89-52L22:49:00F.CSFF324 [address]OIWfghmysrr for patient hzzbMGIFRGXSRGTHUG9100-09-85C27: 50:14 [facility] 2019-11-08 08:45:00 LBwrhdurusm77459740t 23D+zAJP75Hb yeLfWRgZOdiB9jp3nJsXydtqoJcQoOLv [facility]/Xo0kDpxMeR/KW4978-38-96V13 :45:00 [facility] ([facility])OB Postpart Progr NoteREPORT#:[id number] REPORT STATUS: SignedDATE:11/08/19 TIME: 0845 PATIENT: SHARYN RUSSELL UNIT #: [id number]#: [id number] ROOM/BED: 1997-ADOB: [birth year] AGE: 29 SEX: F ATTEND: Mario Ferrer III [facility] AUTHOR: Mario Ferrer III, MD * ALL edits or amendments must be made on the electronic/computer document * Subjective SubjectiveAdmission EGA (wks/days): 41 weeksEGA at delivery (wks/days): 41 weeksStatus/day: post , post operativePatient reports: Patient reports: Yes: normal lochia, pain management effective, tolerating po well, voiding well, voiding without pain, tolerating ambulation. No: complaints, flatus, bowel movement, nausea, vomiting, excessive bleeding, abdominal pain, perineal pain, difficulty nursing, headache, blurred vision. Objective Nursing Documentation ReviewNursing data:The data set between the solid lines has been imported from nursing documentation. Any exceptions have been noted below under Provider comments. Feeding preference: Provider comments on imported nursing data: [] Physical ExamIncision site: well approximated edges, darnell intact, dryUterus: firm, involution appropriateFundus: below the umbilicusLochia: normalLacerations: Perineal laceration(s): NoneLower extremities: Edema: 1+ pitting Kayleigh's sign: negative Diagnosis, Assessment Plan Diagnosis, Assessment PlanAssessment: nml progress, anemia r/t: (Fedef)Plan: routine care, discharge tomorrowPlan discussed with: patient, spouse/partnerComments:Yesterday this patient's chart had not been assigned to me. at 0848 [facility]IT #:[id number] OF REPORT PRProgress Iona8747-90-92P94:45:00F.QWOZ513 [address]-6450FZEogtwktls for patient yeqmWPESXIGGOJWOJA5680-13-20I99: 48:29 [facility] 2019-11-06 21:32:00 MAxxfxlywdy78377741x umpqSQMB0Q08 mIJFmcDEJ51PWotSIzpu5KByo4NleMK7 KQXgmJJNW1IFL6mi/UB8979-17-35A93 :32:143394-0450 [facility] [address] [address] PATIENT NAME: SHARYN RUSSELL ADMIT DATE: 11/05/19ACCOUNT NO: [id number] ROOM NO: F.1997 AGE: 29 SEX: F ADMITTING PHYSICIAN: Mario Ferrer III, MD ATTENDING PHYSICIAN: Mario Ferrer III, MD OPERATION DATE: 11/06/2019 PREOPERATIVE DIAGNOSES:1. Postdates intrauterine .2. Failure to progress. POSTOPERATIVE DIAGNOSIS: Cephalopelvic disproportion, occipital posterior,asynclitic. PROCEDURE: Primary low transverse section. SURGEON: Mario Ferrer III, MD GROUP PRODUCT MANAGER: Jama Amaya SA ANESTHESIA: Epidural. PROCEDURE IN DETAIL: The patient was taken to the operating room, prepped inthe usual sterile manner for a vaginal abdominal procedure. Pfannenstielincision was made with a skin knife and carried down to the fascia with a deepknife. Fascia excised in the midline and extended laterally with Rodriguez scissors. Rectus muscles were taken off rectus fascia with blunt and sharp dissection. Peritoneum entered bluntly with surgeon's fingertips and extended superiorly andinferiorly. A score incision was made in the uterus of approximately 4 cm abovethe bladder reflection. Viable female was noted to be deep in the pelvis, OPwith significant asynclitic presentation with a caput. Infant was suctioned. Cord clamped and cut and passed to the nurse, crying vigorously, Apgars 8 and 9. The cord blood was obtained. Placenta sent to MD Harris for stem cells. Uterus exteriorized, wiped free of all clots and blood. Both tubes and ovariesnormal. Uterus was very boggy, did not respond to Pitocin, Methergine wasgiven. Hysterotomy incision closed with #1 Monocryl starting in each angle with2 pmqzcv-sw-tggvmb for excellent hemostasis. Uterus firmed up nicely afterMethergine was given and bimanual massage. Uterus was returned to the abdominalcavity. Gutters wiped free of all clots and blood, small amount of irrigation. Peritoneum closed with 2-0 Monocryl, fascia closed with 0 PDS. Subcutaneous wasclosed with Vicryl, and the skin was closed with darnell. Estimated blood losswas 650 mL. The patient tolerated the procedure well and went to the recoveryroom in good condition. Dictated By: Mario Ferrer III, MD WT: OP:F.SHANEL/JOSE R/NTSDD: 11/06/2019 21:32:00 PATIENT NAME: SHARYN RUSSELL ZEYNEP Conf#: [id number]/DID#: [id number] Authenticated by Mario Ferrer MD On 11/09/2019 08:51:31 AM at 0851 PATIENT NAME: SHARYN RUSSELL ZEYNEP kfhwds0308-47-71X54:23:00F.[facility]20 [id number] for patient oureBGJNDPZHGYNFQE7375-41-94E26: 52:04 [facility] 2019-11-06 19:46:00 IWprqkzxwfu32414766C 8D52ggP1WbfN S7HcDPr5/w8AOtG9XE+vsDsMFMXmwSTj 5LqCld8y275YKhHl1Np2071-71-93G89 :46:00 [facility] ([facility])OB Intrapart Prog NoteREPORT#:[id number] REPORT STATUS: SignedDATE:11/06/19 TIME: 1945 PATIENT: SHARYN RUSSELL UNIT #: [id number]#: [id number] [facility] [birth year] [facility]GE: 29 SEX: F ATTEND: Mario Ferrer III MDADM AUTHOR: Maroi Ferrer III, MD * ALL edits or amendments must be made on the electronic/computer document * Subjective SubjectiveAdmission EGA (wks/days): 41 weeksPatient reports: Patient reports: Yes leaking fluid, Yes comfortable with epidural, No complaints, No abdominalpain, No vaginal bleeding, No contractions, No normal movement, No decreased movement, No no movement, No headache, No blurred vision, No scotomata, No fever, No chills, No shortness of breath, No new complaints Objective Nursing Documentation ReviewNursing data:The data set between the solid lines has been imported from nursing documentation. Any exceptions have been noted below under Provider comments. ROM date: 11/06/19 ROM time: 409 Provider comments on imported nursing data: [] ObjectiveCervical/ exam: Dilatation (cm): 2 (2-3) Effacement (%): 50 station: - 3 presentation: cephalic Est. wt (lbs) 7 Est. wt (oz) 5Uterine activity: Monitor: toco Frequency (description): irregular Frequency (minutes): 5 Duration (seconds): 45 Intensity: moderate Resting tone: relaxed Tachysystole: No Diagnosis, Assessment PlanAssessment: normal FHR pattern, normal progress of labor, slow progress of laborPlan: stop oxytocin, deliveryPlan discussed with: patient, spouse/partner at 1948 RPT #:[id number] OF REPORT PRProgress Kjdp8392-72-96Q09:46:00F.WWJT596 [address]YAYjgaxwkjh for patient iymeXRMFNHUWACSZUK9310-79-54G75: 48:48 [facility] 2019-11-06 18:53:00 VDtzccxdisw94679208c BK18SbXDRHQM pOgonBlC4VjiWTK7Y86pDQa5R5DktmOk UmVbE+RkY8KVFtcwy8I2164-44-33O21 :53:00 [facility] ([facility])OB Intrapart Prog NoteREPORT#:[id number] REPORT STATUS: SignedDATE:11/06/19 TIME: 1852 PATIENT: SHARYN RUSSELL UNIT #: [id number]#: [id number] [facility] [birth year] AGE: 29 SEX: F ATTEND: Mario Ferrer III [facility] AUTHOR: Mario Ferrer III, MD * ALL edits or amendments must be made on the electronic/computer document * Subjective SubjectiveAdmission EGA (wks/days): 41 weeksPatient reports: Patient reports: Yes contractions, Yes normal movement, Yes comfortable with epidural, No complaints, No abdominal pain, No vaginal bleeding, No leaking fluid, No decreased movement, No no movement, No headache, No blurred vision, No scotomata, No fever, No chills, No shortness of breath, No coping well w/o pain meds, No new complaints Objective Nursing Documentation ReviewNursing data:The data set between the solid lines has been imported from nursing documentation. Any exceptions have been noted below under Provider comments. ROM date: 11/06/19 ROM time: 041 Provider comments on imported nursing data: [] ObjectiveCervical/ exam: Dilatation (cm): 2 (2-3) Effacement (%): 50 station: - 3 presentation: cephalic Est. wt (lbs) 7 Est. wt (oz) 5Uterine activity: Monitor: toco Frequency (description): irregular Frequency (minutes): 5 Duration (seconds): 45 Intensity: moderate Resting tone: relaxed Tachysystole: No FHR EvaluationBaby A: Baby A baseline: 140 bpm Baby A variability: moderate 6-25 bpm Baby A accelerations: 10 X 10 Baby A decelerations: none Baby A FHR category: category 1 Diagnosis, Assessment PlanAssessment: normal FHR pattern, normal progress of labor, slow progress of laborPlan: continue labor induction, stop oxytocin, d/c pit till adequate epidural level returnsAdditional notes:If no cx change in 2-3 hours, will proceed to C/S at 1855 RPT #:[id number] OF REPORT PRProgress Svvo3588-59-87F55:53:00F.YQJO605 [address]-39[address]DWPaitxzufo for patient sfbkNXTLMNNRGGMDHV1910-66-37Y07: 55:56 [facility] 2019-11-06 15:26:00 UXjjngzvdcw743816485 NHt24HCP9ll7 UT4H8g+DJNkSc5cNqJiC2eXQDB+BB+Tw pmoNSTnjuWcFJi0ZMb/4479-59-42T31 :26:00 [facility] ([facility])OB Intrapart Prog NoteREPORT#:[id number] REPORT STATUS: SignedDATE:11/06/19 TIME: 152 PATIENT: SHARYN RUSSELL UNIT #: [id number]#: [id number] [facility] [birth year] AGE: 29 SEX: F ATTEND: Mario Ferrer III MDADM AUTHOR: Mario Ferrer III, MD * ALL edits or amendments must be made on the electronic/computer document * Subjective SubjectiveAdmission EGA (wks/days): 41 weeksPatient reports: Patient reports: Yes complaints, Yes abdominal pain, Yes contractions, Yes normal movement, Yes new complaints (labor pain), No vaginal bleeding, No leaking fluid, No decreased movement, No no movement, No headache, No blurred vision, No scotomata, No fever, No chills, No shortness of breath, No comfortable with epidural, No coping well w/o pain medsComments:I believe the patient startex to hyperventilate as ctx pain returned Objective Nursing Documentation ReviewNursing data:The data set between the solid lines has been imported from nursing documentation. Any exceptions have been noted below under Provider comments. ROM date: 11/06/19 ROM time: 409 Provider comments on imported nursing data: [] ObjectiveCervical/ exam: Dilatation (cm): 2 (2-3) Effacement (%): 50 station: - 3 presentation: cephalic Est. wt (lbs) 7 Est. wt (oz) 5Uterine activity: Monitor: toco Frequency (description): irregular Frequency (minutes): 5 Duration (seconds): 45 Intensity: moderate Resting tone: relaxed Tachysystole: No FHR EvaluationBaby A: Baby A baseline: 140 bpm Baby A variability: moderate 6-25 bpm Baby A accelerations: 10 X 10 Baby A decelerations: none Baby A FHR category: category 1 Diagnosis, Assessment PlanAssessment: normal FHR pattern, normal progress of laborPlan: anticipate vag delivery, stop oxytocin, d/c pit till adequate epidural level returnsPlan discussed with: patient, spouse/partner, parent at 1529 RPT #:[id number] OF REPORT PRProgress Cuoq4854-65-68G18:26:00F.JPGE678 [address]YHIqgnmnxir for patient keyrFZJXHONNSVAKBO4335-38-68I26: 30:07 [facility] 2019-11-06 11:58:00 CDapuxilfff42276196B TUx1YtKzZctm ghy9+43hI5YqaIQByycWaC+wamOhcW9P 6pilxApka9z5DuRemAH4882-49-97L26 :58:00 [facility] ([facility])OB Intrapart Prog NoteREPORT#:[id number] REPORT STATUS: SignedDATE:11/06/19 TIME: 1158 PATIENT: SHARYN RUSSELL UNIT #: [id number]#: [id number] [address] [birth year] AGE: 29 SEX: F ATTEND: Mario Ferrer III MDADM AUTHOR: Mario Ferrer III, MD * ALL edits or amendments must be made on the electronic/computer document * Subjective SubjectiveAdmission EGA (wks/days): 41 weeksPatient reports: Patient reports: Yes contractions, Yes normal movement, Yes comfortable with epidural, No complaints, No abdominal pain, No vaginal bleeding, No leaking fluid, No decreased movement, No no movement, No headache, No blurred vision, No scotomata, No fever, No chills, No shortness of breath, No coping well w/o pain meds, No new complaints Objective Nursing Documentation ReviewNursing data:The data set between the solid lines has been imported from nursing documentation. Any exceptions have been noted below under Provider comments. ROM date: 11/06/19 ROM time: 041 Provider comments on imported nursing data: [] ObjectiveCervical/ exam: Dilatation (cm): 2 (2-3) Effacement (%): 50 station: - 3 presentation: cephalic Est. wt (lbs) 7 Est. wt (oz) 5Uterine activity: Monitor: toco Frequency (description): irregular Frequency (minutes): 5 Duration (seconds): 45 Intensity: moderate Resting tone: relaxed Tachysystole: No FHR EvaluationBaby A: Baby A baseline: 140 bpm Baby A variability: moderate 6-25 bpm Baby A accelerations: 10 X 10 Baby A decelerations: none Baby A FHR category: category 1 Diagnosis, Assessment PlanAssessment: normal FHR pattern, normal progress of laborPlan: anticipate vag delivery, continue current managmnt, continue labor induction at 1159 RPT #:[id number] OF REPORT PRProgress Lchj8998-07-36C39:58:00F.KXMH060 [address]BWFscilkias for patient ybvsIFFMNRJICWMBND6761-72-12S88: 00:00 [facility] 2019-11-06 09:58:00 DYierpsqyen89896126z TRikghwWSlWQ Z0Zs4VTQTAgsgiq83AssGv502m528+iD jfypjwg2o6ZcqUHIVsB6510-52-84W03 :58:792901-[address] [address] PATIENT NAME: SHARYN RUSSELL ADMIT DATE: 11/05/19ACCOUNT NO: [id number] ROOM NO: [facility] AGE: 29 SEX: F ADMITTING PHYSICIAN: Mario Ferrer III, MD ATTENDING PHYSICIAN: Mario Ferrer III, MD ADMISSION DATE: 11/05/2019 ADMITTING DIAGNOSES: Postdates intrauterine , induction of labor. HISTORY OF PRESENT ILLNESS: The patient is a 28-year-old 2, para 0,ectopic x1, EDC was 10/30/2019 presents for postdates induction with Cytotec. The patient has had an uneventful except for a couple false alarmswith rupture of membranes and decreased movement. [facility] with a fluid index of 16. Thepatient now presents for elective induction. LABORATORY DATA: Blood type O positive. GBS negative. Chlamydia, GC negative. HIV negative. One-hour glucose 89. Maternal serum alpha fetoprotein waswithin normal limits. She has received Tdap and flu shot during . Rubella was immune. PAST MEDICAL HISTORY: The patient has had an ACL repair, T and A and gastricsleeve. ALLERGIES: TO PENICILLIN. CURRENT MEDICATIONS: vitamins and iron. REVIEW OF SYSTEMS: Negative. SOCIAL HISTORY: Negative for alcohol, tobacco or recreational drug use. PHYSICAL EXAMINATION:VITAL SIGNS: Blood pressure 128/80 with an approximately 20-pound weight gain.GENERAL: Well-developed, well-nourished female in no apparent distress. Remainder of physical exam within normal limits.ABDOMEN: Gravid. Estimated weight 7 to 7-1/2 pounds.PELVIS: Cervical exam was after epidural was 1 cm, 50% effaced, -3 station,vertex status post spontaneous rupture of membranes. IMPRESSION: Postdates intrauterine , induction of labor, vertexpresentation. PLAN: Pitocin augmentation after Cytotec and epidural. Dictated By: Mario Ferrer III, MD WT: HP:FLIZBETH/JOSE R/ERVIN PATIENT NAME: RUSSELLSHARYN DT: 11/06/2019 10:10:01[facility]hrmcf#: [id number]/DID#: [id number] by Mario Ferrer MD On 11/06/2019 06:58:09 PM at 1858 PATIENT NAME: MORASHARYN and physical fcnjetlgmul3996-80-30Y83:10:00F. JKR07172175-3855UZHvspiagqy for patient komeFFMQDAZIGNOXNM8719-73-59F37: 58:36 [facility] 2019-11-06 07:52:00 DNmxkimpkkd06237512r NnFTVswrxKLx Lc6nVze6Rq4++c928d378gK0KlrZK7+d FZRZNb0irZyeGaLlIYy4239-18-75J00 :52:00 [facility]OB Intrapart Prog NoteREPORT#:[id number] REPORT STATUS: SignedDATE:11/06/19 TIME: 075 PATIENT: SHARYN RUSSELL UNIT #: [id number]#: [id number] ROOM/BED: 008-ADOB: [birth year] AGE: 29 SEX: F ATTEND: Mario Ferrer III MDADM AUTHOR: Mario Ferrer III, MD * ALL edits or amendments must be made on the electronic/computer document * Subjective SubjectiveAdmission EGA (wks/days): 41 weeksPatient reports: Patient reports: Yes leaking fluid, Yes contractions, Yes normal movement, Yes comfortable with epidural, No complaints, No abdominal pain, No vaginal bleeding, No decreased movement, No no movement, No headache, No blurred vision, No scotomata, No fever, No chills, No shortness of breath, No coping well w/o pain meds, No new complaints Objective Nursing Documentation ReviewNursing data:The data set between the solid lines has been imported from nursing documentation. Any exceptions have been noted below under Provider comments. ROM date: 11/06/19 ROM time: 0410 Provider comments on imported nursing data: [] ObjectiveCervical/ exam: Dilatation (cm): 1 Effacement (%): 50 station: - 3 presentation: cephalic Est. wt (lbs) 7 Est. wt (oz) 5Pelvis exam: Clinically adequate for this fetus: marginal with high vertex presentationUterine activity: Monitor: toco Frequency (description): irregular Frequency (minutes): 5 Duration (seconds): 45 Intensity: moderate Resting tone: relaxed Tachysystole: NoCurrent oxytocin: Indication: augmentation Infusion rate: 2.00 FHR EvaluationBaby A: Baby A baseline: 140 bpm Baby A variability: moderate 6-25 bpm Baby A accelerations: 10 X 10 Baby A decelerations: none Baby A FHR category: category 1 Diagnosis, Assessment PlanFree Text A P:post dates IUPSROM @ 0400high vtx presentations/p cytotecContractions starting a couple patternP:pitocin 0t5Ruhb discussed with: patient at 0758 RPT #:[id number] OF REPORT PRProgress Wtiu2353-58-73Z62:52:00F.NYHN923 [address]-4[address]XXPvmxrdews for patient nyxaKBZZRXCSOBSNLM7476-19-53Y84: 58:40 [facility] 2019-11-06 05:36:00 TPfurdbfera69048601W Zr+h+UYrCpBn H/Qt3zB42A1YEk19vqcSbFgDIpN6qSld OLwqgrHc6bDjJMDaEGp8499-49-38O30 :36:00 [facility] ([facility])Clinical NoteREPORT#:[id number] REPORT STATUS: SignedDATE:11/06/19 TIME: 0536 PATIENT: SHARYN RUSSELL UNIT #: [id number]#: [id number] [facility] [birth year] AGE: 29 SEX: F ATTEND: Mario Ferrer III [facility] AUTHOR: Brenda Pickard DO * ALL edits or amendments must be made on the electronic/computer document * Clinical NoteNote:Germaine Scruggs Hospitalist on dutyRequest for bedside ultrasound for presentation I performed a limited bedside ultrasound with the following findings: cephalic presentation, visually low fluid volume, posterior placenta, movements observed at 0538 RPT #:[id number] OF REPORT CLClinical pack4231-95-84C18:36:00F.JGEU559 [address]-9451RLVdzrmyhxb for patient envoKVKCOVCMGENHQL2207-84-16O24: 38:42 [facility]"
[2024-02-26 17:20] LABS: Specific Gravity < 1.005 (1.005-1.030)
[2024-02-26 17:23] LABS: Specific Gravity < 1.005 (1.005-1.030); Sqamous Epithelial <5 /HPF (None Seen); Urine Bacteria <20 /HPF (<20); Urine Bilirubin NEGATIVE (Negative); Urine Blood Negative (Negative); Urine Clarity Turbid (Clear); Urine Color Colorless (Yellow); Urine Culture Reflex Order NOT NEEDED; Urine Glucose NEGATIVE (Negative); Urine Ketones NEGATIVE (Negative); Urine Microscopic Reflex YN ORDER UMIC; Urine Nitrite NEGATIVE (Negative); Urine Protein NEGATIVE (Negative); Urine RBC <5 /HPF (None Seen); Urine Urobilinogen Normal (Normal); Urine WBC <5 /HPF (<5)
[2024-02-26] MEDS ORDERED: KETOROLAC 30 MG/ML INJ ONE (17:51)
[2024-02-26] MEDS ORDERED: ONDANSETRON 4 MG/2 ML VIAL ONE (17:51)
[2024-02-26] MEDS ORDERED: NA CHLORIDE 0.9% 1,000 ML ONE (17:51)
[2024-02-26 18:00] LABS: Absolute Basophils 0.1 K/uL (0-0.5); Absolute Eosinophils 0.2 K/uL (0-0.5); Absolute Lymphocytes (CBC) 2.8 K/uL (0.7-4.9); Absolute Monocytes 0.5 K/uL (0.1-1.3); Absolute Neutrophil 3.9 K/uL (1.8-8.0); Basophils % 0.8 % (0-1.3); Eosinophils % 2.2 % (0-4.4); Hematocrit 37.7 % (36.0-45.0); Hemoglobin 12.6 g/dL (12.0-15.0); MCH 31.4 pg (27.0-35.0); MCHC 33.6 g/dL (32.0-36.0); MCV 93.7 fL (80-100); Monocytes % 6.5 % (3.3-12.3); Neutrophils % 52.5 % (41.7-73.7); Platelets 306 thou/uL (152-406); RBC Red Blood Cell Count 4.02 M/uL (3.86-4.86); Red Cell Distribution Width 13.3 % (12.1-15.2)
[2024-02-26 18:10] LABS: ALT/SGPT 21 U/L (13-56); Albumin 3.5 g/dL (3.4-5.0); Albumin/Globulin Ratio 1.1 (1.1-1.8); Alkaline Phosphatase 61 U/L (45-117); BUN Blood Urea Nitrogen 7 mg/dL (7-18); Bicarbonate 27 mEq/L (21-32); Bilirubin Total 0.2 mg/dL (0.2-1.0); Globulin 3.3 g/dL (2.3-3.5); Glomerular Filtration Rate 101 ml/min (=/>90); Glucose Level 84 mg/dL (74-106); Lipase 39 U/L (13-75); Protein, Total 6.8 g/dL (6.4-8.2); Sodium Level 141 mEq/L (136-145)
[2024-02-26 18:19] LABS: AST/SGOT < 10 U/L (15-37)
--- NOTE | 2024-02-26 18:46 | RAD REPORT ---
EXAM DESCRIPTION: US - Abdomen Exam Limited - 02/26/2024 5:17 pm CLINICAL HISTORY: ABD PAIN COMPARISON: RP EXAM LIMITED dated 02/25/2008 TECHNIQUE: Sonographic grayscale and color flow images of the right upper abdominal quadrant were o btained. FINDINGS: The gallbladder demonstrates no gallstones. No pericholecystic fluid or gallbladder wall t hickening. The common bile duct is normal measuring 2 mm. The liver demonstrates no findings of intrahepatic biliary dilatation. IMPRESSION: Unremarkable examination.
[2024-02-26] MEDS ORDERED: MORPHINE 4 MG/ML SYR ONE (19:45)
--- NOTE | 2024-02-26 20:17 | RAD REPORT ---
EXAM DESCRIPTION: CT - Abdomen Pelvis W Contrast - 02/26/2024 7:25 pm CLINICAL HISTORY: ABD PAIN COMPARISON: No comparisons TECHNIQUE: Thin cut axial CT imaging of the abdomen and pelvis was performed following intravenous a dministration of 96 mL Isovue 300. Multiplanar reformats were generated and reviewed. All CT scans are performed using dose optimization technique as appropriate and may include automated exposure control or mA/KV adjustment according to patient size. FINDINGS: 5 mm nodule in the right posterior costophrenic angle, likely benign given size. No other suspicious findings in the lung bases. The liver, spleen, adrenal glands, and pancreas show no suspicious findings. Gallbladder and biliary tree are also without suspicious finding. Symmetric renal function is seen with no hydronephrosis or suspicious renal mass. Postsurgical changes of gastric bypass. No dilated bowel loops or bowel wall thickening. No free air, free fluid or inflammatory stranding. No hernia, mass or bulky lymphadenopathy. The urinary bladder is without significant finding. No suspicious bony findings. IMPRESSION: No acute intra-abdominal process. Incidental findings as above.
--- NOTE | 2024-02-26 20:28 | EDPHYS ---
Physician Documentation [facility] Name: Pamela Olguin Age: 33 yrs Sex: Female : 1990 Arrival Date: 02/26/2024 Time: 16:39 Bed 7 Private MD: ED Physician Abraham Barbosa HPI: 02/25 17:44 This 33 yrs old Female presents to ER via Ambulatory with complaints of Abdominal Pain. kb 17:44 Pt is a 33 year old female who presents for RUQ pain that radiates to right shoulder kb that started 2 weeks ago and has been intermittent. Reports nausea. Denies fever, vomiting or diarrhea. STates the pain gets worse after eating. . 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 - Infectious Disease History:: Denies. - Social history:: Smoking status: Patient denies any tobacco usage or history of. ROS: 17:44 Constitutional: As per HPI kb Exam: 17:44 Constitutional: This is a well developed, well nourished patient who is awake, alert, kb and in no acute distress. Head/Face: Normocephalic, atraumatic. ENT: Moist Mucous membranes Cardiovascular: Regular rate Respiratory: Respirations even and unlabored. No increased work of breathing. Talking in full sentences Skin: Warm, dry with normal turgor. Normal color. MS/ Extremity: Pulses equal, no cyanosis. Neurovascular intact. Full, normal range of motion. Neuro: Awake and alert, GCS 15, oriented to person, place, time, and situation. Moves all extremities. Normal gait. 17:44 Abdomen/GI: Inspection: abdomen appears normal, Bowel sounds: normal, Palpation: soft, in all quadrants, moderate abdominal tenderness, in the right upper quadrant and right lower quadrant, Vital Signs: 16:54 BP 132 / 100; Pulse 80; Resp 18; Temp 98.5(TE); Pulse Ox 100% on R/A; as6 16:56 Weight 71.21 kg (R); Height 5 ft. 0 in. (R); Pain 9/10; as6 19:54 BP 113 / 72; Pulse 91; Resp 16; Pulse Ox 99% ; vc1 20:52 BP 110 / 70; Pulse 67; Resp 16; Temp 98.6; Pulse Ox 98% ; vc1 20:54 Pain 5/10; vc1 16:56 Body Mass Index 30.66 (71.21 kg, 152.4 cm) as6 16:56 Pain Scale: Adult as6 20:54 Pain Scale: Adult vc1 MDM: 16:44 Patient medically screened. kb 17:44 Differential diagnosis: appendicitis, cholecystitis, Cholelithiasis, non-specific abd kb pain. Data reviewed: vital signs, nurses notes. 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 05 16:56 Order name: CBC with Diff; Complete Time: 18:21 kb 02/25 16:56 Order name: CMP; Complete Time: 18:21 kb 02/25 16:56 Order name: Lipase; Complete Time: 18:21 kb 02/25 16:56 Order name: Test, Urine; Complete Time: 17:25 kb 02/25 16:56 Order name: Urinalysis w/ reflexes; Complete Time: 17:25 kb 02/25 16:56 Order name: Abdomen Limited US; Complete Time: 18:46 kb 02/25 18:47 Order name: CT Abd/Pelvis - IV Contrast Only; Complete Time: 20:20 kb 02/25 16:56 Order name: IV Saline Lock; Complete Time: 18:27 kb 02/25 16:56 Order name: Labs collected and sent; Complete Time: 18:27 kb Administered Medications: 18:05 Drug: Ketorolac IVP 15 mg IVP once Route: IVP; Site: right antecubital; db 19:54 Follow up: Response: No adverse reaction; No change in condition; Pain is increased vc1 18:10 Drug: NS 0.9% IV 1000 ml IV at 1000 ml once Route: IV; Rate: 1000 ml; Site: right db antecubital; 19:00 Follow up: IV Status: Completed infusion; IV Intake: 1000ml vc1 18:10 Drug: Ondansetron IVP 4 mg IVP once; over 2 minutes Route: IVP; Site: right antecubital;db 19:00 Follow up: Response: No adverse reaction; Marked relief of symptoms vc1 19:54 Drug: morphine IVP or IV 4 mg IVP once over 4 mins Route: IVP; Infused Over: 4 mins; vc1 Site: right antecubital; 20:54 Follow up: Pain 5/10 Adult; Response: No adverse reaction; Marked relief of symptoms; vc1 Pain is decreased Disposition Summary: 02/26/24 20:27 Discharge Ordered Notes: Location: Home kb Condition: Stable kb Diagnosis - Upper abdominal pain, unspecified kb Followup: kb - With: Emergency Department - When: As needed - Reason: Worsening of condition Followup: kb - With: Private Physician - When: 2 - 3 days - Reason: Recheck today's complaints, Continuance of care, Re-evaluation by your physician Discharge Instructions: - Discharge Summary Sheet kb - Biliary Colic, Adult kb - Abdominal Pain, Adult, [id number] kb Forms: - Medication Reconciliation Form kb - Antibiotic Education kb - Prescription Opioid Use kb - Patient Portal Instructions kb - Leadership Thank You Letter kb Prescriptions: - Zofran 4 mg Oral tablet - take 1 tablet ORAL route every 6 hours As needed; 12 tablet; Refills: 0, kb Product Selection Permitted - dicyclomine 20 mg Oral tablet - take 1 tablet ORAL route 4 times per day As needed; 20 tablet; Refills: 0, kb Product Selection Permitted Signatures: Dispatcher [employer] EDMS Brandi Vale, RV REPAIRER-C KATHERINE-Quique Chairez RN RN as6 Oneyda Edwards RN RN vc1 Karo Mckeon RN RN db Corrections: (The following items were deleted from the chart) 16:57 16:57 CBC+H.LAB.BRZ ordered. EDMS EDMS 16:57 16:57 COMPREHENSIVE METABOLIC PANEL+C.LAB.BRZ ordered. EDMS EDMS 16:57 16:57 LIPASE+C.LAB.BRZ ordered. EDMS EDMS 16:57 16:57 Test, Urine+UC.LAB.BRZ ordered. EDMS EDMS 16:57 16:57 Urinalysis+U.LAB.BRZ ordered. EDMS EDMS 16:57 Abdomen Limited+US.RAD.BRZ ordered. EDMS EDMS
--- NOTE | 2024-02-26 20:28 | ER ---
Nurse's Notes [facility] Name: Pamela Olguin Age: 33 yrs Sex: Female : 1990 Arrival Date: 02/26/2024 Time: 16:39 Bed 7 Private MD: Diagnosis: Upper abdominal pain, unspecified Presentation: 02/25 16:54 Chief complaint: Patient states: RUQ pain off and on for several weeks. Coronavirus as6 screen: At this time, the client does not indicate any symptoms associated with coronavirus-19. Ebola Screen: No symptoms or risks identified at this time. Initial Sepsis Screen: Does the patient meet any 2 criteria? No. Patient's initial sepsis screen is negative. Does the patient have a suspected source of infection? No. Patient's initial sepsis screen is negative. Risk Assessment: Do you want to hurt yourself or someone else? Patient reports no desire to harm self or others. Onset of symptoms is unknown. 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 - Infectious Disease History:: Denies. - Social history:: Smoking status: Patient denies any tobacco usage or history of. Screenin:45 [facility] ED Fall Risk Assessment (Adult) History of falling in the last 3 months, db including since admission No falls in past 3 months (0 pts) Confusion or Disorientation No (0 pts) Intoxicated or Sedated No (0 pts) Impaired Gait No (0 pts) Mobility Assist Device Used No (0 pt) Altered Elimination No (0 pt) Score/Fall Risk Level 0 - 2 = Low Risk Oriented to surroundings, Maintained a safe environment. Abuse screen: Denies threats or abuse. Denies injuries from another. Nutritional screening: No deficits noted. Tuberculosis screening: No symptoms or risk factors identified. Assessment: 17:45 Reassessment: Patient appears in no apparent distress at this time. Patient and/or db family updated on plan of care and expected duration. Pain level reassessed. Patient is alert, oriented x 3, equal unlabored respirations, skin warm/dry/pink. General: Appears in no apparent distress. comfortable, Behavior is calm, cooperative. Pain: Complains of pain in right upper quadrant Pain radiates to right arm. Neuro: Level of Consciousness is awake, alert, obeys commands, Oriented to person, place, time, situation. Respiratory: Airway is patent Respiratory effort is even, unlabored, Respiratory pattern is regular, symmetrical. GI: Bowel sounds present X 4 quads. Abd is soft Abdomen is tender to palpation in right upper quadrant. 19:00 General: Appears in no apparent distress. uncomfortable, Behavior is calm, cooperative, vc1 appropriate for age. Pain: Complains of pain in right upper quadrant Pain radiates to anterior aspect of right shoulder Pain currently is 9 out of 10 on a pain scale. Quality of pain is described as radiating, sharp, shooting. Neuro: Level of Consciousness is awake, alert, obeys commands, Oriented to person, place, time, situation, Appropriate for age. Cardiovascular: Denies chest pain, Heart tones S1 S2 Capillary refill < 3 seconds Patient's skin is warm and dry. Chest pain is denied. Respiratory: Airway is patent Respiratory effort is even, unlabored, Respiratory pattern is regular, symmetrical, Breath sounds are clear bilaterally. GI: Abdomen is flat, non-distended, Bowel sounds present X 4 quads. Abd is soft Abdomen is tender to palpation in right upper quadrant Reports upper abdominal pain. : No deficits noted. No signs and/or symptoms were reported regarding the genitourinary system. EENT: No deficits noted. No signs and/or symptoms were reported regarding the EENT system. Derm: Skin is intact, is healthy with good turgor, Skin is dry, Skin is normal, Skin temperature is warm. 19:54 Reassessment: No changes from previously documented assessment. Patient and/or family vc1 updated on plan of care and expected duration. Pain level reassessed. Patient is alert, oriented x 3, equal unlabored respirations, skin warm/dry/pink. Pain: Complains of pain in right upper quadrant Pain radiates to anterior aspect of right shoulder Pain currently is 9 out of 10 on a pain scale. Quality of pain is described as sharp. 20:52 Reassessment: Patient and/or family updated on plan of care and expected duration. Pain vc1 level reassessed. Patient is alert, oriented x 3, equal unlabored respirations, skin warm/dry/pink. Patient states feeling better. Patient states symptoms have improved. Pain: Pain currently is 5 out of 10 on a pain scale. Vital Signs: 16:54 BP 132 / 100; Pulse 80; Resp 18; Temp 98.5(TE); Pulse Ox 100% on R/A; as6 16:56 Weight 71.21 kg (R); Height 5 ft. 0 in. (R); Pain 9/10; as6 19:54 BP 113 / 72; Pulse 91; Resp 16; Pulse Ox 99% ; vc1 20:52 BP 110 / 70; Pulse 67; Resp 16; Temp 98.6; Pulse Ox 98% ; vc1 20:54 Pain 5/10; vc1 16:56 Body Mass Index 30.66 (71.21 kg, 152.4 cm) as6 16:56 Pain Scale: Adult as6 20:54 Pain Scale: Adult vc1 ED Course: 16:42 Patient arrived in ED. mr 16:44 Brandi Vale, [facility] kb 16:44 Abraham Barbosa MD is Attending Physician. kb 16:55 Triage completed. as6 16:56 Arm band placed on. as6 17:08 Urinalysis w/ reflexes Sent. iw 17:08 Test, Urine Sent. iw 17:19 Abdomen Limited US In Process Unspecified. EDMS 17:39 Karo Mckeon, RN is Primary Nurse. db 17:45 Patient has correct armband on for positive identification. Bed in low position. Call db light in reach. Side rails up X 1. 17:50 Inserted saline lock: 20 gauge in right antecubital area, using aseptic technique. db Blood collected. 19:10 Report given to WHIT SMITH. db 19:27 CT Abd/Pelvis - IV Contrast Only In Process Unspecified. EDMS 19:54 Oneyda Edwards RN is Primary Nurse. vc1 20:53 Provided Education on: wait 6 hrs before taking another NSAID. vc1 20:53 No provider procedures requiring assistance completed. IV discontinued, intact, vc1 bleeding controlled, No redness/swelling at site. Pressure dressing applied. Administered Medications: 18:05 Drug: Ketorolac IVP 15 mg IVP once Route: IVP; Site: right antecubital; db 19:54 Follow up: Response: No adverse reaction; No change in condition; Pain is increased vc1 18:10 Drug: NS 0.9% IV 1000 ml IV at 1000 ml once Route: IV; Rate: 1000 ml; Site: right db antecubital; 19:00 Follow up: IV Status: Completed infusion; IV Intake: 1000ml vc1 18:10 Drug: Ondansetron IVP 4 mg IVP once; over 2 minutes Route: IVP; Site: right antecubital;db 19:00 Follow up: Response: No adverse reaction; Marked relief of symptoms vc1 19:54 Drug: morphine IVP or IV 4 mg IVP once over 4 mins Route: IVP; Infused Over: 4 mins; vc1 Site: right antecubital; 20:54 Follow up: Pain 02/28 Adult; Response: No adverse reaction; Marked relief of symptoms; vc1 Pain is decreased Medication: 17:45 VIS not applicable for this client. db Intake: 19:00 IV: 1000ml; Total: 1000ml. vc1 Outcome: 20:27 Discharge ordered by . torito 20:53 Discharged to home ambulatory, vc1 20:53 Condition: improved 20:53 Discharge instructions given to patient, Instructed on discharge instructions, follow up and referral plans. medication usage, Demonstrated understanding of instructions, follow-up care, medications, Prescriptions given X 2, 20:55 Patient left the ED. vc1 Signatures: Dispatcher [employer] EDMS Brandi Vale, NITROGLYCERIN NITRATOR OPERATOR BATCH-C NITROGLYCERIN NITRATOR OPERATOR BATCH-Ckb Ami Rodriguez, Reg Reg mr Sana Jones RN RN iw Quique Velazquez RN RN as6 Oneyda Edwards RN RN vc1 Karo Mckeon RN RN db
[2024-02-26 21:56] VITALS: BP 110/70; TEMP 98.6; O2SAT 98
== END 2024-02-26 20:55 | disposition home or self-care (01) ==
LOC: ER 16:39
DX: R10.11 Right upper quadrant pain (principal)
CPT/HCPCS: 96361; 85025; 81001; 36415; 81025; 83690; 80053; 74177; 76705; 96375; 96374; 99284; Q9967; J2405; J7030

== ENCOUNTER 2025-05-29 11:58 | Inpatient (IN) | payer BC ==
--- OUTSIDE RECORDS SUMMARY | 2025-05-29 12:04 | XMS REPORT | Continuity of Care Document ---
Author Name Unknown Address [address] [facility]. [address] [place] [address] [facility] Address [address] [facility] [address] [place] [address] Care Team Providers Care Sash Maker Name Role Phone PHILIPPE MURCIA Primary Care Physician Unavailab Abel García Attending Clinician Unavailable Onur Cantu Attending Clinician Mario Boone Attending Clinician Unavailable JIMBO HERNANDEZ Attending Clinician Unavail able JIMBO HERNANDEZ Attending Clinician Unavail able MARV WASHINGTON Attending Clinician Unavailable MARV WASHINGTON Attending Clinician Unavailable Marv Correia Attending Clinician [phone] RADIOLOGY Attending Clinician Unavailable Radiology Attending Clinician Unavailable KULDIP BEAR Attending Clinician Unavailab KULDIP Watson Attending Clinician Unavailab REKHA Martin Attending Clinician Unavailab Rekha Martin DO Attending Clinician [phone] Mallory SHERMAN, Eufemia Attending Clinician Unavailable GROVER MONSON Attending Clinician Unavailable Grover Monson DO Attending Clinician [phone] Doctor Unassigned, Iberia Attending Clinician U navailable TOBY OSORIO Attending Clinician Unavailable Troy SHERMAN, Mimi Sparks Attending Clinician Unavailab Moon Arellano Attending Clinician [phone] Mathew HOLLY, Liam Gooden Attending Clinician [phone] LIAM CHAPA Attending Clinician Unavailable NILSON REED Attending Clinician Unavailwillei Mendoza RN, Archana Attending Clinician Unavailable [facility] Attending Clinician Unav ailable Maia Toledo Attending Clinician [phone] MAIA MARQUEZ Attending Clinician Unavailable Abel Mcgovern Admitting Clinician Unavailable KNOW, DOES_NOT Admitting Clinician Unavailable RON HOGUE Admitting Clinician Unavailable Maroi Ferrer Admitting Clinician Unavailable MARV WASHINGTON Admitting Clinician Unavailable SONIA MEDINA Admitting Clinician Sue vailable Payers Payer Name Policy Type Policy Number Effective Date Expirati on Date Source [employer] [facility] MED[employer] [id number] 2020 00:00:00 [facility] [id number] 2023 00:00:00 [employer] [id number] 2022 00:00:00 Problems Condition Name Condition Details Condition Category Status Onset Date Resolution Date Last Treatment Date Treating Clinician Comments Source Obesity (BMI 30-39.9) Obesity (BMI 30-39.9) Disease Active 07-17 00:00: 00 [facility] Ectopic without intrauteri ne , unspecifie d location Ectopic without intrauteri ne , unspecifie d location Disease Active 07-16 00:00: 00 [facility] Inappropri ate change in quantitati ve hCG in early Inappropri ate change in quantitati ve hCG in early Disease Active 06-12 00:00: 00 [facility] Acanthosis nigricans Acanthosis nigricans Disease Active 05-29 00:00: 00 [facility] Personal history of gastric banding Personal history of gastric banding Disease Active 05-29 00:00: 00 [facility] BMI 37.0-37.9, adult BMI 37.0-37.9, adult Disease Active 05-29 00:00: 00 [facility] of unknown anatomic location of unknown anatomic location Disease Resolve d 06-12 00:00: 00 2018-07-17 00:00:00 2018-07-17 13:25:52 [facility] Non-viable Non-viable Disease Resolve d 06-12 00:00: 00 2018-06-12 00:00:00 2018-06-12 16:32:10 [facility] Allergies, Adverse Reactions, Alerts Allergy Name Allergy Type Status Severity Reaction(s) Onset Date Inactive Date Treating Clinician Comments Source clavulan ic acid DA Active MO RASH 2-0 6-24 00:00: 00 [facility] amoxicil renea DA Active MO RASH 2-0 624 00:00: 00 [facility] clavulan ic acid DA Active MO RASH 2-0 5-12 00:00: 00 [facility] amoxicil renea DA Active MO RASH 2-0 5-12 00:00: 00 [facility] amoxicil renea DA Active MO RASH 1-0 6-11 00:00: 00 [facility] clavulan ic acid DA Active MO 1-0 6-11 00:00: 00 [facility] amoxicil renea DA Active MO 1-0 6-11 00:00: 00 [facility] clavulan ic acid DA Active MO RASH 1-0 6-11 00:00: 00 [facility] clavulan ic acid DA Active MO RASH 2019-10 00:00: 00 [facility] amoxicil renea DA Active MO RASH 2019-10 00:00: 00 [facility] clavulan ic acid DA Active MO 2019-10 00:00: 00 [facility] amoxicil renea DA Active MO 2019-10 00:00: 00 [facility] clavulan ic acid DA Active MO 2018-10 00:00: 00 [facility] amoxicil renea DA Active MO 2018-10 00:00: 00 [facility] amoxicil renea DA Active MO RASH 2018-10 00:00: 00 [facility] clavulan ic acid DA Active MO RASH 2018-10 00:00: 00 [facility] Amoxicil renea-Pot Clavulan ate Propensi ty to adverse reaction s Active Hives 05-29 00:00: 00 [facility] AMOXICIL RENEA-POT CLAVULAN ATE DRUG Active Hives 0 05-29 00:00: 00 [facility] NO KNOWN ALLERGIE S Drug Class Active [facility] Social History Social Habit Start Date Stop Date Quantity Comments Source History SDOH Alcohol Frequency [facility] History SDOH Alcohol Std Drinks [facility] History SDOH Alcohol Binge [facility] Gender identity [facility] Sexual orientation [facility] ASSERTION Not [facility] History of Occupation [facility] Alcoholic beverage intake 2024-08-05 00:00:00 2024-08-05 00:00:00 Current drinker of alcohol (finding) [facility] Alcohol intake 2023-06-21 00:00:00 2023-06-21 00:00:00 Current drinker of alcohol (finding) [facility] Exposure to SARS-CoV-2 (event) 2023-03-09 00:00:00 2023-03-19 07:24:00 Not sure [facility] History of Social function 2019-05-01 00:00:00 2019-05-01 00:00:00 [facility] Tobacco use and exposure 2018-05-29 00:00:00 2018-05-29 00:00:00 Smokeless tobacco non-user [facility] Alcohol Comment 2018-05-29 00:00:00 2018-05-29 00:00:00 weekends / social [facility] Sex assigned at 1990 00:00:00 1990 00:00:00 [facility] Smoking Status Start Date Stop Date Source Never smoked tobacco [facility] Medications Ordered Medication Name Filled Medication Name Start Date Stop Date Current Medication? Ordering Clinician Indication Dosage Frequency Signature (SIG) Comments Components Source iopamidol (ISOVUE 370-500 mL) injection 80 mL 05-28 18:30: 00 05-28 18:30 :00 No [id number] 80mL 80 mL, Intravenou s, ONCE, 1 dose, On Bernadine 05/28/25 at 1330, Routine [facility] morpHINE (4 mg/mL) injection 4 mg 05-28 18:00: 00 05-28 17:54 :00 No 4mg 4 mg, Slow IV Push, ONCE, 1 dose, On Bernadine 05/28/25 at 1300, STAT [facility] FENTanyl (PF) (SUBLIMAZE) injection 25 mcg 05-28 16:30: 00 05-28 17:00 :00 No 25ug 25 mcg, Slow IV Push, ONCE, 1 dose, On Bernadine 05/28/25 at 1130, STAT [facility] ondansetron (ZOFRAN (PF)) injection 4 mg 05-28 16:30: 00 05-28 17:01 :00 No 4mg 4 mg, Slow IV Push, ONCE, 1 dose, On Bernadine 05/28/25 at 1130, Administer over 2-5 Minutes, 2 mL [facility] dicyclomine 20 mg tablet 05-28 00:00: 00 06-03 04:59 :00 Yes [id number] 20mg Take 1 tablet by mouth 3 times daily as needed for Abdominal pain for up to 5 days. [facility] ondansetron 4 mg disintegrat ing tablet 8-07 00:00: 00 06-03 04:59 :00 Yes [id number] 4mg Take 1 tablet by mouth every 8 hours as needed for Nausea and Vomiting (N/V) for up to 5 days. [facility] amoxicillin -clavulanat e (AUGMENTIN) 875-125 mg per tablet 1 tablet 2023-10 18:30: 00 08-05 17:53 :00 No 1{tbl} 1 tablet, Oral, ONCE NOW, 1 dose, On Sun08/05/24 at 1330, Routine, Reason for Anti-Infec tive: Documented Infection, Documented Infection Site: Abdominal, Duration of Therapy: Once (ED) [facility] dexamethaso ne sod phos PF injection 10 mg 2023-10 17:45: 00 08-05 17:50 :00 No 10mg 10 mg, Slow IV Push, ONCE, 1 dose, On Sun08/05/24 at 1245, 1 mL [facility] iopamidol (ISOVUE 370-500 mL) injection 100 mL 2023-10 17:30: 00 08-05 17:30 :00 No [id number] 100mL 100 mL, Intravenou s, ONCE, 1 dose, On Sun08/05/24 at 1230, Routine [facility] ondansetron (ZOFRAN (PF)) injection 4 mg 2023-10 16:15: 00 08-05 16:04 :00 No 4mg 4 mg, Slow IV Push, ONCE, 1 dose, On Sun08/05/24 at 1115, TANNER [facility] fentanyl PF (SUBLIMAZE (PF)) injection 50 mcg 2023-10 16:15: 00 08-05 16:06 :00 No 50ug 50 mcg, Slow IV Push, ONCE, 1 dose, On Sun08/05/24 at 1115, STAT [facility] ondansetron 4 mg disintegrat ing tablet 2023-10 00:00: 00 Yes [id number] 4mg Take 1 tablet by mouth every 8 (eight) hours as needed for Nausea and Vomiting (N/V). [facility] dicyclomine 20 mg tablet 2023-10 00:00: 00 Yes [id number] 20mg Take 1 tablet by mouth 4 (four) times daily as needed for Abdominal pain. [facility] amoxicillin -clavulanat e 875-125 mg per tablet 2023-10 00:00: 00 08-13 04:59 :00 No [id number] 1{tbl} Take 1 tablet by mouth every 12 (twelve) hours for 7 days. [facility] tc 99m-mebrofe jose ramon injection 10.2 millicurie 03-05 13:45: 00 03-05 13:12 :00 No [id number] 10.2mCi 10.2 millicurie , Intravenou s, ONCE, 1 dose, On Sun03/05/24 at 0845, Routine [facility] polymyxin B sulf-trimet hoprim 10,000 unit- 1 mg/mL ophthalmic drops 05-10 00:00: 00 Yes [id number] 1[drp] Place 1 Drop in left eye every 4 (four) hours. [facility] ketorolac (TORADOL) injection 30 mg 03-19 13:30: 00 03-19 12:55 :00 No 30mg 30 mg, Slow IV Push, ONCE, 1 dose, On Sun03/19/23 at 0830, Routine [facility] NaCl 0.9% (NS) bolus infusion 1,000 mL 03-19 13:30: 00 03-19 13:52 :00 No 1000mL at 999 mL/hr, 1,000 mL, IV Infusion, ONCE, 1 dose, On Sun03/19/23 at 0830, TANNER [facility] diphenhydrA MINE (BENADRYL) injection 25 mg 03-19 12:45: 00 03-19 12:55 :00 No 25mg 25 mg, Slow IV Push, ONCE, 1 dose, On Sun03/19/23 at 0745, STAT [facility] metoclopram faheem HCl (REGLAN) injection 10 mg 03-19 12:45: 00 03-19 12:55 :00 No 10mg 10 mg, Slow IV Push, ONCE, 1 dose, [facility]03/19/23 [facility] 07[facility]ot[facility] (PEPCID (PF[facility] injection 20 mg 06-18 20:30: 00 06-18 19:33 :00 No 20mg 20 mg, Slow IV Push, ONCE, 1 dose, On Sun06/18/22 at 1530, Routine [facility] NaCl 0.9% (NS) bolus infusion 1,000 mL 06-18 20:15: 00 06-18 20:13 :00 No 1000mL at 999 mL/hr, 1,000 mL, IV Infusion, ONCE, 1 dose, On Sun06/18/22 at 1515, [facility] maalox:diph enhydrAMINE :lidocaine 2 % viscous 1:1:1 ([facility]) oral suspension 15 mL 06-18 20:00: 00 06-18 20:08 :00 No 15mL 15 mL, Oral, ONCE, 1 dose, On Sun06/18/22 at 1500, Routine [facility] ketorolac (TORADOL) injection 30 mg 06-18 19:30: 00 06-18 19:32 :00 No 30mg 30 mg, Slow IV Push, ONCE, 1 dose, On Sun06/18/22 at 1430, [facility] ondansetron (ZOFRAN (PF)) injection 4 mg 06-18 19:30: 00 06-18 19:33 :00 No 4mg 4 mg, Slow IV Push, ONCE, 1 dose, On Sun06/18/22 at 1430, [facility] ondansetron 4 mg disintegrat ing tablet 06-18 00:00: 00 Yes [id number] 4mg Take 1 tablet by mouth every 8 (eight) hours as needed for Nausea and Vomiting (N/V). [facility] meloxicam 7.5 mg tablet 2019-10 00:00: 00 Yes [id number] 74732 7.5mg Take 1 tablet by mouth daily. [facility] ondansetron (ZOFRAN ODT) 4 mg disintegrat ing tablet 05-24 00:00: 00 05-30 04:59 :00 No [id number] 4mg Take 1 tablet by mouth every 8 (eight) hours as needed for Nausea and Vomiting (N/V) for up to 5 days. [facility] HYDROcodone -acetaminop hen 5-325 mg tablet 07-17 00:00: 00 Yes 1{tbl} Take 1 tablet by mouth every 6 (six) hours as needed for Pain (scale 4-6) or Pain (scale 7-10). [facility] Immunizations Ordered Immunization Name Filled Immunization Name Date Status Comments Source SARS-COV-2 COVID-19 MODERNA VACCINE 2021-01-24 00:00:00 Completed [facility] SARS-COV-2 COVID-19 MODERNA VACCINE 2021-01-24 00:00:00 Completed [facility] SARS-COV-2 COVID-19 MODERNA 12+ YRS VACCINE 2021-01-24 00:00:00 Completed [facility] SARS-COV-2 COVID-19 MODERNA 12+ YRS VACCINE 2021-01-24 00:00:00 Completed [facility] SARS-COV-2 COVID-19 MODERNA 12+ YRS VACCINE 2021-01-24 00:00:00 Completed [facility] SARS-COV-2 COVID-19 MODERNA 12+ YRS VACCINE 2021-01-24 00:00:00 Completed [facility] SARS-COV-2 COVID-19 MODERNA 12+ YRS VACCINE 2021-01-24 00:00:00 Completed [facility] SARS-COV-2 COVID-19 MODERNA VACCINE 2020-12-27 00:00:00 Completed [facility] SARS-COV-2 COVID-19 MODERNA VACCINE 2020-12-27 00:00:00 Completed [facility] SARS-COV-2 COVID-19 MODERNA 12+ YRS VACCINE 2020-12-27 00:00:00 Completed [facility] SARS-COV-2 COVID-19 MODERNA 12+ YRS VACCINE 2020-12-27 00:00:00 Completed [facility] SARS-COV-2 COVID-19 MODERNA 12+ YRS VACCINE 2020-12-27 00:00:00 Completed [facility] SARS-COV-2 COVID-19 MODERNA 12+ YRS VACCINE 2020-12-27 00:00:00 Completed [facility] SARS-COV-2 COVID-19 MODERNA 12+ YRS VACCINE 2020-12-27 00:00:00 Completed [facility] SARS-COV-2 COVID-19 MODERNA 12+ YRS VACCINE Unknown Completed [facility] Vital Signs Vital Name Observation Time Observation Value Comments S ource Systolic blood pressure 2025-05-28 18:45:00 124 mm[Hg] [facility] Diastolic blood pressure 2025-05-28 18:45:00 85 mm[Hg] [facility] Heart rate 2025-05-28 18:45:00 66 /min [facility] Body temperature 2025-05-28 18:45:00 36.17 Rosa M [facility] Respiratory rate 2025-05-28 18:45:00 16 /min [facility] Oxygen saturation in Arterial blood by Pulse oximetry 2025-05-28 18:45:00 100 /min [facility] Body height 2025-05-28 16:16:[address] [facility] Body weight 2025-05-28 16:16:[address] [facility] BMI 2025-05-28 16:16:00 34.76 kg/m2 [facility] Systolic blood pressure 2024-08-05 17:53:00 124 mm[Hg] [facility] Diastolic blood pressure 2024-08-05 17:53:00 83 mm[Hg] [facility] Heart rate 2024-08-05 17:53:00 57 /min [facility] Body temperature 2024-08-05 17:53:00 36.94 Rosa M [facility] Respiratory rate 2024-08-05 17:53:00 18 /min [facility] Oxygen saturation in Arterial blood by Pulse oximetry 2024-08-05 17:53:00 100 /min [facility] Body height 2024-08-05 15:37:00 [facility] 2024-08-05 15:37:00 80.74 kg [facility] BMI 2024-08-05 15:37:00 34.76 kg/m2 [facility] Systolic blood pressure 2023-06-21 18:00:00 137 mm[Hg] [facility] Diastolic blood pressure 2023-06-21 18:00:00 93 mm[Hg] [facility] Heart rate 2023-06-21 18:00:00 116 /min [facility] Body temperature 2023-06-21 18:00:00 37.11 Rosa M [facility] Respiratory rate 2023-06-21 18:00:00 16 /min [facility] Body height 2023-06-21 18:00:00 152.4 cm [facility] Body weight 2023-06-21 18:00:00 97.07 kg [facility] BMI 2023-06-21 18:00:00 41.79 kg/m2 [facility] Oxygen saturation in Arterial blood by Pulse oximetry 2023-06-21 18:00:00 100 /min [facility] Systolic blood pressure 2023-05-10 20:17:17 132 mm[Hg] [facility] Diastolic blood pressure 2023-05-10 20:17:17 81 mm[Hg] [facility] Heart rate 2023-05-10 20:17:17 90 /min [facility] Respiratory rate 2023-05-10 20:17:17 16 /min [facility] Oxygen saturation in Arterial blood by Pulse oximetry 2023-05-10 20:17:17 100 /min [facility] Body temperature 2023-05-10 19:34:05 36.89 Rosa M [facility] Body height 2023-05-10 19:20:00 152.4 cm [facility] Body weight 2023-05-10 19:20:00 102.059 kg [facility] BMI 2023-05-10 19:20:00 43.94 kg/m2 [facility] Systolic blood pressure 2023-03-19 13:53:00 125 mm[Hg] [facility] Diastolic blood pressure 2023-03-19 13:53:00 83 mm[Hg] [facility] Heart rate 2023-03-19 13:53:00 55 /min [facility] Respiratory rate 2023-03-19 13:53:00 14 /min [facility] Oxygen saturation in Arterial blood by Pulse oximetry 2023-03-19 13:53:00 98 /min [facility] Body temperature 2023-03-19 12:26:00 37.22 Rosa M [facility] Body height 2023-03-19 12:26:00 152.4 cm [facility] Body weight 2023-03-19 12:26:[address] [facility] BMI 2023-03-19 12:26:00 43.94 kg/m2 [facility] Systolic blood pressure 2022-06-18 20:00:00 113 mm[Hg] [facility] Diastolic blood pressure 2022-06-18 20:00:00 76 mm[Hg] [facility] Heart rate 2022-06-18 20:00:00 64 /min [facility] Respiratory rate 2022-06-18 20:00:00 15 /min [facility] Oxygen saturation in Arterial blood by Pulse oximetry 2022-06-18 20:00:00 99 /min [facility] Body temperature 2022-06-18 19:13:00 36.89 Rosa M [facility] Body height 2022-06-18 19:13:00 152.4 cm [facility] Body weight 2022-06-18 19:13:[address] [facility] BMI 2022-06-18 19:13:00 41.21 kg/m2 [facility] Systolic blood pressure 2020-11-23 04:00:00 125 mm[Hg] [facility] Diastolic blood pressure 2020-11-23 04:00:00 75 mm[Hg] [facility] Heart rate 2020-11-23 04:00:00 79 /min [facility] Body temperature 2020-11-23 04:00:00 37 Rosa M [facility] Respiratory rate 2020-11-23 04:00:00 16 /min [facility] Oxygen saturation in Arterial blood by Pulse oximetry 2020-11-23 04:00:00 98 /min [facility] Body weight 2020-11-23 02:18:00 87.091 kg [facility] BMI 2020-11-23 02:18:00 37.50 kg/m2 [facility] Systolic blood pressure 2020-11-23 04:00:00 125 mm[Hg] [facility] Diastolic blood pressure 2020-11-23 04:00:00 75 mm[Hg] [facility] Heart rate 2020-11-23 04:00:00 79 /min [facility] Body temperature 2020-11-23 04:00:00 37 Rosa M [facility] Respiratory rate 2020-11-23 04:00:00 16 /min [facility] Oxygen saturation in Arterial blood by Pulse oximetry 2020-11-23 04:00:00 98 /min [facility] Body weight 2020-11-23 02:18:00 87.091 kg [facility] BMI 2020-11-23 02:18:00 37.50 kg/m2 [facility] Systolic blood pressure 2020-09-07 21:14:00 124 mm[Hg] [facility] Diastolic blood pressure 2020-09-07 21:14:00 84 mm[Hg] [facility] Heart rate 2020-09-07 21:14:00 77 /min [facility] Body height 2020-09-07 21:14:[address] [facility] Body weight 2020-09-07 21:14:[address] [facility] BMI 2020-09-07 21:14:00 36.33 kg/m2 [facility] Systolic blood pressure 2020-09-07 21:14:00 124 mm[Hg] [facility] Diastolic blood pressure 2020-09-07 21:14:00 84 mm[Hg] [facility] Heart rate 2020-09-07 21:14:00 77 /[facility] Body height 2020-09-07 21:14:[address] [facility] Body weight 2020-09-07 21:14:[address] [facility] BMI 2020-09-07 21:14:00 36.33 kg/m2 [facility] Systolic blood pressure 2020-05-24 20:55:00 133 mm[Hg] [facility] Diastolic blood pressure 2020-05-24 20:55:00 86 mm[Hg] [facility] Heart rate 2020-05-24 20:53:00 63 /min [facility] Body temperature 2020-05-24 20:53:00 37 Rosa M [facility] Respiratory rate 2020-05-24 20:53:00 18 /min [facility] Body height 2020-05-24 20:53:[address] [facility] Body weight 2020-05-24 20:53:[address] [facility] BMI 2020-05-24 20:53:00 35.74 kg/m2 [facility] Oxygen saturation in Arterial blood by Pulse oximetry 2020-05-24 20:53:00 98 /min [facility] Procedures Procedure Date / Time Performed Performing Clinician Source COMP. METABOLIC PANEL ([id number]) 2025-05-28 17:48:00 Jimbo Hernandez [facility] CT ABDOMEN PELVIS W CONTRAST 2025-05-28 17:41:46 Jimbo Hernandez [facility] AMYLASE 2025-05-28 16:53:00 Jimbo Hernandez [facility] LIPASE 2025-05-28 16:53:00 Jimbo Hernandez Hector [facility] MAGNESIUM 2025-05-28 16:53:00 Hanane Jimbo Young [facility] TROPONIN I 2025-05-28 16:53:00 Hanane Jimbo Young [facility] HEPATIC FUNCTION PANEL ([id number]) (ALB,T.PRO,BILI T,BU/BC,ALT,AST,ALK PHOS) 2025-05-28 16:53:00 Jimbo Hernandez Hector [facility] BASIC METABOLIC PANEL (NA, K, CL, CO2, GLUCOSE, BUN, CREATININE, CA) 2025-05-28 16:53:00 Jimbo Hernandez Hector [facility] CBC WITH DIFF 2025-05-28 16:53:00 Hanane Jimbo Young [facility] URINALYSIS 2025-05-28 16:53:00 Jimbo Hernandez Hector [facility] POCT TEST 2025-05-28 16:53:00 Dionisio Hernandez Hector [facility] POCT TEST 2024-08-05 15:47:00 Margi Washington [facility] LIPASE 2024-08-05 15:46:00 [facility] COMP. METABOLIC PANEL ([id number]) 2024-08-05 15:46:00 Marv Washington [facility] CBC WITH DIFF 2024-08-05 15:46:00 Marv Washington [facility] URINALYSIS 2024-08-05 15:46:00 [facility] NM HEPATOBILIARY W INTERVENTION 2024-03-05 15:07:49 Yudith Jacobo [facility] CONSENT/REFUSAL FOR DIAGNOSIS AND TREATMENT 2023-06-21 18:20:39 Doctor Unassigned, Iberia [facility] CONSENT/REFUSAL FOR DIAGNOSIS AND TREATMENT 2023-05-10 19:15:29 Doctor Unassigned, [place] [facility] CONSENT/REFUSAL FOR DIAGNOSIS AND TREATMENT 2023-03-19 12:24:31 Doctor Unassigned, [place] [facility] POCT TEST 2022-06-18 19:35:00 Anne Costa ra [facility] LIPASE 2022-06-18 19:25:00 [facility] COMP. METABOLIC PANEL ([id number]) 2022-06-18 19:25:00 Rekha Costa [facility] CBC WITH DIFF 2022-06-18 19:25:00 [facility] 2022-06-18 19:25:00 Rekha Costa Un [facility] CONSENT/REFUSAL FOR DIAGNOSIS AND TREATMENT 2022-06-18 19:06:07 Doctor Unassigned, [place]ia [facility] [id number] 2022-05-14 00:00:[address] [facility] [id number] 2021-05-06 00:00:[address] [facility] [id number] 2021-05-06 00:00:[address] [facility] URINALYSIS 2020-11-23 03:41:00 Moon Lenz [facility] RAPID STREP SCREEN FOR GROUP A 2020-11-23 02:44:00 Moon Lenz [facility] ADC,CLC OR LCC ONLY - INFLUENZA A & B DIRECT ANTIGEN 2020-11-23 02:44:00 Moon Lenz [facility] NOTICE OF PRIVACY PRACTICES 2020-11-23 02:15:37 Doctor Unassigned, Iberia [facility] CONSENT/REFUSAL FOR DIAGNOSIS AND TREATMENT 2020-11-23 02:15:15 Doctor Unassigned, Iberia [facility] NO SHOW OR MISSED APPOINTMENT POLICY ACKNOWLEDGEMENT 2020-09-07 20:57:09 Doctor Unassigned, Iberia [facility] [id number] 2019-11-06 [facility] Start Date/Time End Date/Time Encounter Type Admission Type Attending [facility] Care Facility Care Department Encounter ID Source 2022-06-23 12:30:00 Inpatient BERTA Abel Mcgovern [facility] [id number] [facility] 2022-06-21 10:00:00 Inpatient Abel Davis [facility] LD [id number] [facility] 2022-05-12 09:58:00 Inpatient Abel Gandhi [facility] OBPP [id number] [facility] 2021-08-20 21:07:55 Emergency [facility] [id number] [facility] 2021-05-18 10:30:00 Inpatient Abel Davis [facility] CARE [id number] [facility] 2021-01-04 10:00:00 Inpatient Abel Mcgovern [facility] [id number] [facility] 2020-09-28 10:37:00 Inpatient BERTA Pepe Onur [facility] [id number] [facility] 2020-09-13 07:45:00 Inpatient Onur Paula [facility] [id number] [facility] 2019-11-05 18:18:00 Inpatient Mario Chappell [facility] LD [id number] [facility] 2019-10-31 19:15:00 Inpatient Mario Ferrer [facility] ZENAIDA [id number] [facility] 2025-05-28 11:17:00 2025-05-28 13:47:00 Emergency X JIMBO HERNANDEZ SHEENA [facility] ERT [id number] [facility] 2024-08-05 10:38:00 2024-08-05 12:58:00 Emergency X MARV WASHINGTON MARYANN [facility] ERT [id number] [facility] 2024-08-05 10:38:00 2024-08-05 12:58:00 Emergency Marv Washington [facility] 1.2.840.114 350.1.13.10 4.2.7.2.686 [id number] [facility] 2024-03-05 07:30:04 2024-03-05 23:59:00 Outpatient R RADIOLOGY [facility] [id number] [facility] 2024-03-05 07:30:04 2024-03-05 23:59:00 Hospital Encounter Radiology [facility] 1.2.840.114 350.1.13.10 4.2.7.2.686 [id number] [facility] 2024-02-26 15:00:00 2024-02-26 15:00:00 Outpatient R KULDIP BEAR OGECHUKWU [facility] [id number] [facility] 2023-06-21 13:29:00 2023-06-21 14:03:00 Emergency X REKHA COSTA [facility] ERT [id number] [facility] 2023-06-21 13:29:00 2023-06-21 14:03:00 Emergency Rekha Costa [facility] 1.2.840.114 350.1.13.10 4.2.7.2.686 [id number] [facility] 2023-06-21 00:00:00 2023-06-21 00:00:00 Letter (Out) Eufemia Tejada [facility] 1.2.840.114 350.1.13.10 4.2.7.2.686 [id number] [facility] 2023-05-10 14:22:00 2023-05-10 15:28:00 Emergency X GROVER MONSON [facility] ERT [id number] [facility] 2023-05-10 14:22:00 2023-05-10 15:28:00 Emergency Grover Monson [facility] 1.2.840.114 350.1.13.10 4.2.7.2.686 [id number] [facility] 2023-03-19 07:27:00 2023-03-19 08:55:00 Emergency X REKHA COSTA [facility] ERT [id number] [facility] 2023-03-19 07:27:00 2023-03-19 08:55:00 Emergency Rekha Costa [facility] 1.2.840.114 350.1.13.10 4.2.7.2.686 [id number] [facility] 2022-06-18 14:16:00 2022-06-18 15:19:00 Emergency X REKHA COSTA [facility] ERT [id number] [facility] 2022-06-18 14:16:00 2022-06-18 15:19:00 Emergency Rekha Costa [facility] 1.2.840.114 350.1.13.10 4.2.7.2.686 [id number] [facility] 2022-06-18 00:00:00 2022-06-18 00:00:00 Orders Only Doctor Unassigned, Iberia [facility] 1.2.840.114 350.1.13.10 4.2.7.2.686 [id number] [facility] 2022-05-12 09:58:00 2022-05-18 19:37:00 Inpatient EM Abel Mcgovern [facility] OBPP [id number] [facility] 2022-04-14 14:48:00 2022-04-14 18:15:00 Emergency EM Chris [facility] ZENAIDA [id number] [facility] 2022-04-14 14:48:00 2022-04-14 18:15:00 Emergency EM Abel Mcgovern [facility] [id number] [facility] 2022-04-05 21:56:00 2022-04-06 01:00:00 Emergency EL Abel Mcgovern [facility] [id number] [facility] 2022-04-05 21:56:00 2022-04-06 01:00:00 Emergency EL ChrisAbel [facility] [id number] [facility] 2022-03-02 14:10:00 2022-03-02 16:25:00 Emergency EM ChrisAbel [facility] ZENAIDA [id number] [facility] 2022-03-02 14:10:00 2022-03-02 16:25:00 Emergency EM Chris, Daquanndamos [facility] [id number] [facility] 2021-05-06 13:00:00 2021-05-08 13:22:00 Inpatient EM ChrisAbel [facility] OBPP [id number] [facility] 2021-05-06 14:52:00 2021-05-06 14:52:00 Outpatient Abel Mcgovern [facility] [id number] [facility] 2021-04-20 16:09:00 2021-04-20 19:42:00 Emergency EM ChrisAbel [facility] [id number] [facility] 2021-04-01 13:02:00 2021-04-01 13:39:00 Emergency EM ChrisAbel [facility] [id number] [facility] 2021-01-24 09:30:00 2021-01-24 09:30:00 Outpatient [facility] [id number] [facility] 2020-12-27 09:40:00 2020-12-27 09:40:00 Outpatient TOBY AIRAS [facility] [id number] [facility] 2020-11-23 00:00:00 2020-11-23 00:00:00 Letter (Out) Mimi Simmons [facility] 1.2.840.114 350.1.13.10 4.2.7.2.686 [id number] [facility] 2020-11-23 00:00:00 2020-11-23 00:00:00 Letter (Out) Mimi Simmons [facility] 1.2.840.114 350.1.13.10 4.2.7.2.686 [id number] 2020-11-22 20:20:00 2020-11-22 22:26:00 Emergency Moon Lenz [facility] 1.2.840.114 350.1.13.10 4.2.7.2.686 [id number] [facility] 2020-11-22 20:20:00 2020-11-22 22:26:00 Emergency Yoanna, [facility] 1.2.840.114 350.1.13.10 4.2.7.2.686 [id number] 2020-09-07 15:52:38 2020-09-07 23:59:00 Hospital Encounter Chapa [facility] chad Weeks 1.2.840.114 350.1.13.10 4.2.7.2.686 [id number] [facility] 2020-09-07 15:52:38 2020-09-07 23:59:00 Hospital Encounter Mathew Liam [facility] chad Weeks 1.2.840.114 350.1.13.10 4.2.7.2.686 [id number] 2020-09-07 15:15:00 2020-09-07 15:15:00 Outpatient R LIAM CHAPA [facility] [id number] [facility] 2020-09-07 14:57:36 2020-09-07 15:12:36 Office Visit Mathew [facility] Surgical Specialsami Weeks 1.2.840.114 350.1.13.10 4.2.7.2.686 [id number] [facility] 2020-09-07 14:57:36 2020-09-07 15:12:36 Office Visit Mathew Liam [facility]kley [facility] Surgical Specialti [facility] 1.2840.114 350.1.13.10 4.2.7.2.686 [id number] 2020-09-07 00:00:00 2020-09-07 00:00:00 Orders Only Doctor Unassigned, Iberia [facility] 1.2840.114 350.1.13.10 4.2.7.2.686 [id number] [facility] 2020-09-06 14:30:00 2020-09-06 14:30:00 Outpatient NILSON FARIA [facility] [id number] [facility] 2020-05-25 00:00:00 2020-05-25 00:00:00 Telephone Archana Mendoza [facility] 1..114 350.1.13.10 4.2.7.2.686 [id number] [facility] 2020-05-24 15:45:59 2020-05-24 16:12:06 Urgent Care Pob[facility], [facility] 1.84.114 350.1.13.10 4.2.7.2.686 [id number] [facility] 2020-05-24 15:40:00 2020-05-24 16:12:06 Outpatient R [facility] [id number] [facility] 2019-11-06 11:17:00 2019-11-06 11:17:00 Outpatient Mario Ferrer [facility] [id number] [facility] 2019-10-29 08:30:00 2019-10-29 08:30:00 Outpatient Mario Ferrer [facility] [id number] [facility] 2019-10-20 22:55:00 2019-10-21 01:55:00 Emergency EM Mario Ferrer [facility] [id number] [facility] Results Test Description Test Time Test Comments Results Result Co mments Source [facility] [id number] 18:09:15CT ABDOMEN PELVIS W CONTRAST 05/28/2025 12:22 PM HISTORY: Nausea/vomiting RLQ abdominal pain (Age >= 14y) COMPARISON: CT abdomen pelvis dated 08/05/2024. TECHNIQUE: Axial images of the abdomen and pelvis were acquired afteradministration of intravenous contrast. Coronal and sagittalreconstructions were also created. FINDINGS: LOWER CHEST: 4 mm right lower lobe nodule, unchanged. HEPATOBILIARY: The liver is normal in size.No focal hepatic lesion.No biliary ductal dilatation. The gallbladder is unremarkable. SPLEEN: Within normal limits. PANCREAS: The parenchyma is unremarkable.No ductal dilatation. No masses. ADRENAL GLANDS: No adrenal nodules. KIDNEYS: No hydronephrosis or stone. No solid mass. GI TRACT: Post gastrectomy. No dilation or wall thickening. The appendix isunremarkable. PERITONEUM AND RETROPERITONEUM: No free air or free fluid. LYMPH NODES: No lymphadenopathy is seen. PELVIS/BLADDER: The urinary bladder is normal. The reproductive organs arewithin normal limits. 3 cm leftadnexal cyst. VESSELS: Within normal limits. BONES AND SOFT TISSUES: No aggressive osseous lesion or acute osseousabnormality. Small periumbilical fat- containing hernia withoutcomplication.[facility] [id number] 18:04:38* Test Item Value Reference Range Interpretation Comme nts TROPONIN I (test code = 6870428782) 0.002 ng/mL <=0.034 MICHAEL (test code = MICHAEL) Reference (Normal) Range (defined by the 99th percentile reference limit): <= 0.034 ng/mL Note: Cardiac troponin begins to rise 3-4 hours after the onset of ischemia. Repeat in 4-6 hours if the sample was drawn within 3-4 hours of the onset of the symptom and found normal. Diagnosis of myocardial injury is made with acute changes in cTn concentrations with at least one serial sample above the 99th percentile upper reference limit (URL), taken together with the patient's clinical presentation. Biotin has been reported to cause a negative bias, interpret results relative to patient's use of biotin. Lab Interpretation (test code = 53873-9) Normal [facility]2025-[facility]07 17:50:31* Test Item Value Reference Range Interpretation Comme nts LIPASE (test code = 2919122191) 95 U/L 0-220 Lab Interpretation (test cod e = 84171-0) Normal [facility] Hospital[facility] FUNCTION PANEL (56574) (ALB,T.PRO,BILI T,BU/BC,ALT,AST,ALK PHOS)2025-05-28 17:50:31* Test Item Value Reference Range Interpretation Comme nts TOTAL BILI (test code = 0280200029) 0.5 mg/dL 0.1-1.1 BILI UNCON (test code = 2831133745) 0.4 mg/dL 0.1-1.1 BILI CONJ (test code = 9200525106) 0 mg/dL 0.0-0.3 T PROTEIN (test code = 6107556080) 7.5 g/dL 6.3-8.2 ALBUMIN (test code = 0971295422) 4.3 g/dL 3.5-5.0 ALK PHOS (test code = 9689538559) 52 U/L 34-122 ALTv (test code = 1742-6) 17 U/L 5-35 AST(SGOT) (test code = 2931053673) 21 U/L 13-40 Lab Interpretation (test cod e = 45641-4) Normal [facility] Hospital[facility]esium2025-08-07 17:50:31* Test Item Value Reference Range Interpretation Comme nts MAGNESIUM (test code = 5366563096) 1.9 mg/dL 1.7-2.4 Lab Interpretation (test cod e = 83808-3) Normal [facility] Hospital[facility]IC METABOLIC PANEL (NA, K, CL, CO2, GLUCOSE, BUN, CREATININE, CA)2025-05-28 17:50:10* Test Item Value Reference Range Interpretation Comme nts NA (test code = 1637979847) 138 mmol/L 135-145 K (test code = 6230236775) 4.3 mmol/L 3.5-5.0 CL (test code = 0905828523) 106 mmol/L 98-108 CO2 TOTAL (test code = 5370127985) 25 mmol/L 23-31 AGAP (test code = 1953751810) 7 2-16 BUN (test code = 3879208237) 9 mg/dL 7-23 GLUCOSE (test code = 9316900184) 77 mg/dL 70-110 CREATININE (test code = 2160-0) 0.59 mg/dL 0.50-1.04 CALCIUM (test code = 1366689182) 9.4 mg/dL 8.6-10.6 eGFR (test code = 78611-7) 123 mL/min/1.73m2 CKD-EPI eGFR (20 21). Assuming creatinine has been stable day-to-day for at least three months, the eGFR indicates Category G1 (>= 90 mL/min/1.73 m2) [facility]YLASE2025-08-07 17:49:29* Test Item Value Reference Range Interpretation Comme nts FINN (test code = 1734133760) 85 U/L 35-110 Lab Interpretation (test cod e = 47627-6) Normal [facility] WITH [id number] 17:43:30* Test Item Value Reference Range Interpretation Comme nts WBC (test code = 6690-2) 9.99 4.30-11.10 RBC (test code = 789-8) 4.16 3.93-5.25 HGB (test code = 718-7) 13.2 g/dL 11.6-15.0 HCT (test code = 4544-3) 39.9 % 35.7-45.2 MCV (test code = 787-2) 95.9 fL 80.6-95.5 H MCH (test code = 785-6) 31.7 pg 25.9-32.8 MCHC (test code = 786-4) 33.1 g/dL 31.6-35.1 RDW-SD (test code = 20608-9) 42.4 fL 39.0-49.9 RDW-CV (test code = 788-0) 12.1 % 12.0-15.5 PLT (test code = 777-3) 295 166-358 MPV (test code = 85652-3) 10.7 fL 9.5-12.9 NRBC/100 WBC (test code = 4102985290) 0 0.0-10.0 NRBC x10^3 (test code = 6407591890) See_Comment [Automated messa ge] The system which generated this result transmitted reference range: 10*3/?L. The reference range was not used to interpret this result as normal/abnormal. GRAN MAT (NEUT) % (test code = 770-8) 56.7 % IMM GRAN % (test code = 5606891367) 0.5 % LYMPH % (test code = 736-9) 33.1 % MONO % (test code = 5905-5) 6.6 % EOS % (test code = 713-8) 2.1 % BASO % (test code = 706-2) 1 % GRAN MAT x10^3(ANC) (test code = 7994843788) 5.66 10*3/uL 1.88-7.09 IMM GRAN x10^3 (test code = 7991607359) 0.05 10*3/uL 0.00-0.06 LYMPH x10^3 (test code = 731-0) 3.31 10*3/uL 1.32-3.29 H MONO x10^3 (test code = 742-7) 0.66 10*3/uL 0.33-0.92 EOS x10^3 (test code = 711-2) 0.21 10*3/uL 0.03-0.39 BASO x10^3 (test code = 704-7) 0.1 10*3/uL 0.01-0.07 H Lab Interpretation (test code = 21917-8) Abnormal [facility]PO[facility] [id number] 17:03:00* Test Item Value Reference Range Interpretation Comme nts POCT PREG (test code = 1605) Negative On board controls acceptable with C Line (test code = 3574) Yes POCT PREG LOT # (test code = 3575) [id number] POCT PREG TEST DATE ( test code = 3576) Lab Interpretation (test cod e = 28007-0) Normal [facility] Hospital[facility]. METABOLIC PANEL (94366)2024-08-05 16:32:06* Test Item Value Reference Range Interpretation Comme nts NA (test code = 3085284954) 137 mmol/L 135-145 K (test code = 2725727356) 4.0 mmol/L 3.5-5.0 CL (test code = 5030886990) 105 mmol/L 98-108 CO2 TOTAL (test code = 5544769444) 26 mmol/L 23-31 AGAP (test code = 4006999824) 6 2-16 BUN (test code = 1769081119) 7 mg/dL 7-23 GLUCOSE (test code = 4847557085) 89 mg/dL 70-110 CREATININE (test code = 2160-0) 0.61 mg/dL 0.50-1.04 TOTAL BILI (test code = 7936724145) 0.8 mg/dL 0.1-1.1 CALCIUM (test code = 1942033147) 9.2 mg/dL 8.6-10.6 T PROTEIN (test code = 5541508108) 7.6 g/dL 6.3-8.2 ALBUMIN (test code = 2316585494) 4.4 g/dL 3.5-5.0 ALK PHOS (test code = 7377768814) 59 U/L 34-122 ALTv (test code = 1742-6) 16 U/L 5-35 AST(SGOT) (test code = 4982326003) 40 U/L 13-40 eGFR (test code = 20463-1) 122.8 mL/min/1.73m2 CKD-EPI eGFR (20 21). Assuming creatinine has been stable day-to-day for at least three months, the eGFR indicates Category G1 (>= 90 mL/min/1.73 m2) [facility]2024-10-15 16:31:45* Test Item Value Reference Range Interpretation Comme nts LIPASE (test code = 3965058251) 104 U/L 0-220 Lab Interpretation (test cod e = 71702-1) Normal [facility] WITH [id number] 16:11:25* Test Item Value Reference Range Interpretation Comme nts WBC (test code = 6690-2) 11.42 4.30-11.10 H RBC (test code = 789-8) 4.12 3.93-5.25 HGB (test code = 718-7) 13.3 g/dL 11.6-15.0 HCT (test code = 4544-3) 39.3 % 35.7-45.2 MCV (test code = 787-2) 95.4 fL 80.6-95.5 MCH (test code = 785-6) 32.3 pg 25.9-32.8 MCHC (test code = 786-4) 33.8 g/dL 31.6-35.1 RDW-SD (test code = 40878-3) 40.7 fL 39.0-49.9 RDW-CV (test code = 788-0) 11.7 % 12.0-15.5 L PLT (test code = 777-3) 334 166-358 MPV (test code = 78280-5) 10.4 fL 9.5-12.9 NRBC/100 WBC (test code = 5434522140) 0.0 0.0-10.0 NRBC x10^3 (test code = 5523481032) See_Comment [Automated messa ge] The system which generated this result transmitted reference range: 10*3/?L. The reference range was not used to interpret this result as normal/abnormal. GRAN MAT (NEUT) % (test code = 770-8) 63.5 % IMM GRAN % (test code = 2839318037) 0.40 % LYMPH % (test code = 736-9) 28.0 % MONO % (test code = 5905-5) 6.2 % EOS % (test code = 713-8) 1.3 % BASO % (test code = 706-2) 0.6 % GRAN MAT x10^3(ANC) (test code = 1358084217) 7.24 10*3/uL 1.88-7.09 H IMM GRAN x10^3 (test code = 8727193586) 0.05 10*3/uL 0.00-0.06 LYMPH x10^3 (test code = 731-0) 3.20 10*3/uL 1.32-3.29 MONO x10^3 (test code = 742-7) 0.71 10*3/uL 0.33-0.92 EOS x10^3 (test code = 711-2) 0.15 10*3/uL 0.03-0.39 BASO x10^3 (test code = 704-7) 0.07 10*3/uL 0.01-0.07 Lab Interpretation (test code = 37140-1) Abnormal [facility] [id number] 15:47:00* Test Item Value Reference Range Interpretation Comme nts POCT PREG (test code = 1605) Negative On board controls acceptable with C Line (test code = 3574) Yes POCT PREG LOT # (test code = 3575) [id number] POCT PREG TEST DATE ( test code = 3576) 07-26-2025 Lab Interpretation (test cod e = 10743-3) Normal [facility]. METABOLIC PANEL (86010)2022-06-18 19:48:09* Test Item Value Reference Range Interpretation Comme nts NA (test code = 7674217061) 142 mmol/L 135-145 K (test code = 1210141679) 4.0 mmol/L 3.5-5 CL (test code = 4542616315) 110 mmol/L 98-108 H CO2 TOTAL (test code = 7776160358) 26 mmol/L 23-31 AGAP (test code = 3763443643) 2-16 BUN (test code = 3250329284) 10 mg/dL 7-23 GLUCOSE (test code = 2503474066) 85 mg/dL 70-110 CREATININE (test code = 1922733285) 0.61 mg/dL 0.5-1.04 TOTAL BILI (test code = 1380563987) 0.2 mg/dL 0.1-1.1 CALCIUM (test code = 2337512816) 8.9 mg/dL 8.6-10.6 T PROTEIN (test code = 9743245443) 6.5 g/dL 6.3-8.2 ALBUMIN (test code = 8201974510) 4.0 g/dL 3.5-5 ALK PHOS (test code = 3872388106) 88 U/L 34-122 ALTv (test code = 1742-6) 31 U/L 5-35 AST(SGOT) (test code = 0137644363) 34 U/L 13-40 eGFR (test code = 4426505846) mL/min/1.73m2 MICHAEL (test code = MICHAEL) Association of Glomerular Filtration Rate (GFR) and Staging of Kidney Disease* + --+ --+ ------+| GFR (mL/min/1.73 m2) ?| With Kidney Damage ?| ?Without Kidney Damage+ --------+ --------+ +| ?>90 ?| ?Stage one ?| ? Normal ?+ ---+ ---+ -------+| ?60-89 ?| ?Stage two ?| ? Decreased GFR ? + --+ --+ ------+| ?30-59 ?| ?Stage three ?| ? Stage three ? + --+ --+ ------+| ?15-29 ?| ?Stage four ? | ? Stage four ?+ ---+ ---+ -------+| ?<15 (or dialysis) ? ?| ?Stage five ? | ? Stage five ?+ ---+ ---+ -------+ *Each stage assumes the associated GFR [...] imaging tests). Lab Interpretation (test code = 49792-7) Abnormal [facility]22-[facility] 19:48:09* Test Item Value Reference Range Interpretation Comme nts LIPASE (test code = 3772546980) 138 U/L 0-220 Lab Interpretation (test cod e = 21206-6) Normal [facility] WITH [id number] 19:40:05* Test Item Value Reference Range Interpretation Comme nts WBC (test code = 6690-2) See_Comment [Automated EndoStim] The system which generated this result transmitted [...] g/dL 31.6-35.1 L RDW-SD (test code = 87758-1) 45.1 fL 39-49.9 RDW-CV (test code = 788-0) 14.1 % 12-15.5 PLT (test code = 777-3) See_Comment [Automated connex.ioa ge] The system which generated this result transmitted reference range: 166 - 358 10*3/?L. The reference range was not used to interpret this result as normal/abnormal. MPV (test code = 37618-6) 10.2 fL 9.5-12.9 NRBC/100 WBC (test code = 9556764399) See_Comment [Automated WoofRadar ssage] The system which generated this result transmitted reference range: 0.0 - 10.0 /100 WBCs. The reference range was not used to interpret this result as normal/abnormal. NRBC x10^3 (test code = 6333251289) See_Comment [Automated connex.ioa ge] The system which generated this result transmitted reference range: 10*3/?L. The reference range was not used to interpret this result as normal/abnormal. GRAN MAT (NEUT) % (test code = 770-8) 54.5 % IMM GRAN % (test code = 3639181778) 0.20 % LYMPH % (test code = 736-9) 26.9 % MONO % (test code = 5905-5) 11.2 % EOS % (test code = 713-8) 6.1 % BASO % (test code = 706-2) 1.1 % GRAN MAT x10^3(ANC) (test code = 4917324430) 3.61 10*3/uL 1.88-7.09 IMM GRAN x10^3 (test code = 1951285670) 0-0.06 LYMPH x10^3 (test code = 731-0) 1.78 10*3/uL 1.32-3.29 MONO x10^3 (test code = 742-7) 0.74 10*3/uL 0.33-0.92 EOS x10^3 (test code = 711-2) 0.40 10*3/uL 0.03-0.39 H BASO x10^3 (test code = 704-7) 0.07 10*3/uL 0.01-0.07 Lab Interpretation (test code = 23069-2) [id number]* Test Item Value Reference Range Interpretation Comme nts POCT PREG (test code = 1605) Negative On board controls acceptable with C Line (test code = 3574) Present POCT PREG LOT # (test code = 3575) [id number] POCT PREG TEST DATE ( test code = 3576) 08-21-2023 Lab Interpretation (test cod e = 74663-1) [facility] [id number] 10:11:00* Test Item Value Reference Range Interpretation [...] = PLTMR) NORMAL NORMAL AG HEPATITIS B [id number] 21:13:00* Test Item Value Reference Range Interpretation Comme nts AG HEPATITIS B SURFACE (test code = HBSAG) NONREACTIVE NONREACTIVE AB HEPATITIS C [id number] 21:13:00* Test Item Value Reference Range Interpretation Comme nts AB HEPATITIS C (test code = HCVAB) NONREACTIVE NONREACTIVE A SIGNAL TO CUTOFF (test code = CUTOFF) 0.04 <0.80 N AB [id number] 21:13:00* Test Item Value Reference Range Interpretation Comme nts AB TREPONEMA (test code = TREPAB) NONREACTIVE NONREACTIVE COMPREHENSIVE METABOLIC [id number] 20:12:00* Test Item Value Reference Range Interpretation [...] ALKP) 129 units/L 46-116 H CBC W/AUTO [id number] 19:46:00* Test Item Value Reference Range Interpretation [...] code = BA#) 0.1 K/mm3 BILE ACIDS [id number] 09:10:00* Test Item Value Reference Range Interpretation Comme nts BILE ACIDS TOTAL (test code = BILEACT) 2.5 umol/L 0.0-10.0 Performed At: [address] [id number] Sanjai MD Ph:[phone] RUPTURE OF [id number] 15:52:00* Test Item Value Reference Range Interpretation Comme nts RUPTURE OF MEMBRANES (test c ode = ROM) NON-RUPTURED COVID 19 Asymptomatic IH [id number] 11:02:00* Test Item Value Reference Range Interpretation [...] testsfor detection and/or diagnosis of COVID-19 under Owfnice994(b)(1) of the Act, 21 U.S.C. 360bbb-3(b)(1), unless theauthorization is terminated or revoked sooner. URINALYSIS [id number] 10:51:00* Test Item Value Reference Range Interpretation [...] NONE SEEN URINE SAMPLE: CLEAN CATCHCOMPREHENSIVE METABOLIC [id number] 12:46:00* Test Item Value Reference Range Interpretation [...] = ALKP) 138 units/L 46-116 H URINALYSIS [id number] 12:32:00* Test Item Value Reference Range Interpretation [...] NONE SEEN URINE SAMPLE: CLEAN CATCHCBC W/AUTO [id number] 12:28:00* Test Item Value Reference Range Interpretation [...] code = PLTMR) NORMAL NORMAL RUPTURE OF [id number] 17:27:00* Test Item Value Reference Range Interpretation Comme nts RUPTURE OF MEMBRANES (test c ode = ROM) NON-RUPTURED COVID 19 Asymptomatic IH [id number] 17:26:00* Test Item Value Reference Range Interpretation [...] testsfor detection and/or diagnosis of COVID-19 under Phkcdkz726(b)(1) of the Act, 21 U.S.C. 360bbb-3(b)(1), unless theauthorization is terminated or revoked sooner. URINALYSIS [id number] 14:34:00* Test Item Value Reference Range Interpretation [...] CATCHComment On arrival if delivery is not [facility] W/AUTO [id number] 09:02:00* Test Item Value Reference Range Interpretation [...] code = PLTMR) NORMAL NORMAL RUPTURE OF [id number] 03:32:00* Test Item Value Reference Range Interpretation Comme nts RUPTURE OF MEMBRANES (test c ode = ROM) RUPTURED AB HIV 1 20:55:00* Test Item Value Reference Range Interpretation Comme nts AB HIV 1 2 (test code = UGF92US) NONREACTIVE INDEX NONREACTIVE IS CONSENT FORM SIGNED FOR HIV TESTING? NAG HEPATITIS B [id number] 20:55:00* Test Item Value Reference Range Interpretation Comme nts AG HEPATITIS B SURFACE (test code = HBSAG) NON REACTIVE INDEX NonReactive IS CONSENT FORM SIGNED FOR HIV TESTING? NAG HEPATITIS B [id number] 20:55:00* Test Item Value Reference Range Interpretation Comme nts AG HEPATITIS B SURFACE (test code = HBSAG) NON REACTIVE INDEX NonReactive Previously reported result: NONREACTIVE INDEXEdited by: INFCE on 05/06/21:2054HBSAG prev. reported as:NONREACTIVE . . IS CONSENT FORM SIGNED FOR HIV TESTING? NAB HEPATITIS C [id number] 20:55:00* Test Item Value Reference Range Interpretation Comme nts AB HEPATITIS C (test code = HCVAB) NON REACTIVE INDEX NON REACT. A Previously reported result: NONREACTIVE INDEXEdited by: INFCE on 05/06/21:2054HCVAB prev. reported as:NONREACTIVE . . SIGNAL TO CUTOFF (test code = CUTOFF) <0.02 <0.80 N IS CONSENT FORM SIGNED FOR HIV TESTING? NAB [id number] 20:55:00* Test Item Value Reference Range Interpretation Comme nts AB TREPONEMA (test code = TREPAB) NONREACTIVE NONREACTIVE IS CONSENT FORM SIGNED FOR HIV TESTING? NAB HIV 1 20:55:00* Test Item Value Reference Range Interpretation Comme nts AB HIV 1 2 (test code = YKD35HT) NONREACTIVE INDEX NONREACTIVE A IS CONSENT FORM SIGNED FOR HIV TESTING? NAB HEPATITIS [id number] 20:55:00* Test Item Value Reference Range Interpretation Comme nts AB HEPATITIS C (test code = HCVAB) NON REACTIVE INDEX NON REACT. IS CONSENT FORM SIGNED FOR HIV TESTING? NAG HEPATITIS B [id number] 15:32:00* Test Item Value Reference Range Interpretation Comme nts AG HEPATITIS B SURFACE (test code = HBSAG) NONREACTIVE NONREACTIVE IS CONSENT FORM SIGNED FOR HIV TESTING? NAB HEPATITIS C [id number] 15:32:00* Test Item Value Reference Range Interpretation Comme nts AB HEPATITIS C (test code = HCVAB) NONREACTIVE NONREACTIVE SIGNAL TO CUTOFF (test code = CUTOFF) <0.02 <0.80 N IS CONSENT FORM SIGNED FOR HIV TESTING? NAB [id number] 15:32:00* Test Item Value Reference Range Interpretation Comme nts AB TREPONEMA (test code = TREPAB) NONREACTIVE NONREACTIVE IS CONSENT FORM SIGNED FOR HIV TESTING? NAB HIV 1 15:32:00* Test Item Value Reference Range Interpretation Comme nts AB HIV 1 2 (test code = UCM34SM) NONREACTIVE IS CONSENT FORM SIGNED FOR HIV TESTING? NCOMPREHENSIVE METABOLIC [id number] 14:12:00* Test Item Value Reference Range Interpretation [...] ALKP) 149 units/L 46-116 H CBC W/AUTO [id number] 13:39:00* Test Item Value Reference Range Interpretation [...] code = PLTMR) NORMAL NORMAL COMPREHENSIVE METABOLIC [id number] 18:42:00* Test Item Value Reference Range Interpretation [...] 125 units/L 46-116 H HEMOL. NOTIFIED CJURINALYSIS [id number] 17:37:00* Test Item Value Reference Range Interpretation [...] NONE SEEN URINE SAMPLE: CLEAN CATCHCBC W/AUTO [id number] 17:14:00* Test Item Value Reference Range Interpretation [...] PLTMR) NORMAL NORMAL - US PREG AFTER [id number] 11:21:00 [facility] : 1990 Sex: F Patient Name: SHARYN RUSSELL Unit No: [id number] EXAMS: CPT CODE: [id number] US PREG AFTER TRI [address]207 [facility] [address] [place] [address] OBSTETRICAL ULTRASOUND REPORT -- Pat. Name: SHARYN RUSSELL Pat. No: [id number] Study Date: 01/04/2021 10:00am , Age: 13 1990, 30 Pregnancies: 3,Para 1 LMP: 08/13/2020 GA by LMP: 20w4d GA by US: 20w0d GA Selected: 20w4d (LMP) DANNA: 05/20/2021 Referring MD: ABEL MCGOVERN Stone Gang Sawyer: Harriet Montiel RDMS, RVT CPT4: [id number] Admitting MD: ABEL MCGOVERN Hist/Ind: SCAN 1 ANATOMY MEASUREMENTS AGE GROWTH EVALUATION Measurement GA Range Srce %for GA Ratios ----- ---- ------- BPD 4.6 cm 19w6d (83a5e-05r8o) HadlBPD 17% FL/BPD 0.72 HC 17.6 cm 20w0d (18w3d- 21w4d) Hadl HC 33% FL/AC 0.22 APD 4.8 cm APD HC/AC 1.16 (1.06 - 1.24) TAD 4.9 cm TAD CI 0.76 (0.70 - 0.86) AC 15.2 cm 20w1d (54h0t-19u7p) Hadl AC 40% FL 3.3 cm 20w0d (15d2a-56p9s) Hadl FL 36% HL 3.1 cm 20w2d (73y3q-50b3h) Monster HL 45% GA for sonogram 20w0d (84w0t-87j2p) Weight Estimate: based on (BPD,HC,AC,FL) Hadlock Weight: [...] movements seen Four chamber heart observed [facility] NAME: SHARYN RUSSELL ZEYNEP Radiology Department PHYS: Abel Plummer MD [address] : 1990 AGE: 30 SEX: F [place], [place] [address] LOC: Kole[facility] PHONE #: [phone] DATE: 01/04/2021 STATUS: REG CLI FAX #: [phone] RAD NO: Page 1 Signed Report (CONTINUED) Patient Name: SHARYN RUSSELL Unit No: [id number] EXAMS: CPT CODE: [id number] US PREG AFTER [id number] (Continued) Left ventricular outflow tract (LVOT) seen [...] Grade 1 There is no evidence of placentaprevia. Amniotic fluid volume is normal. Uterus and adnexa: No significant abnormality is seen. Thank you for allowing us to participate in the care of this patient. Israel Velasquez M.D. Electronic Signature 01/04/2021 11:21am at 1121 Reported and signed by: Kelley Velasquez MD CC: Abel Mcgovern MD Technologist: Harriet Montiel RDMS, RVT Probe: Trnscrbd D/ (1121) t.SDR.CER Orig Print D/T: S: 01/04/2021 (1121) [facility] NAME: SHARYN RUSSELL Radiology Department PHYS: Abel Plummer MD [address] : 1990 AGE: 30 SEX: F [place] [address] : [facility] PHONE #: [phone] EXAM DATE: 01/04/2021 STATUS: REG CLI FAX #: [phone] RAD NO: Page 2 Signed Report Patient Name: SHARYN RUSSELL Unit No: [id number] EXAMS: CPT CODE: [id number] PREG AFTER 1ST TRI 43973 (Continued) [facility] NAME: SHARYN RUSSELL Radiology Department PHYS: Abel Plummer MD [address] : 1990 AGE: 30 SEX: F [place] [address] LOC: [place].RAD PHONE #: [phone] EXAM DATE: 01/04/2021 STATUS: REG CLI FAX #: [phone] RAD NO: Page 3 Signed [id number] 04:03:00* Test Item Value Reference Range Interpretation Comme nts APPEARANCE (test code = 6210151523) Hazy Clear A COLOR (test code = 9764263731) Yellow Yellow PH (test code = 2423101388) 4.8-8.0 SP GRAVITY (test code = 1125698718) 1.003-1.030 GLU U QUAL (test code = 4049518960) Normal Normal BLOOD (test code = 0781772215) Negative Negative KETONES (test code = 4309665484) Negative Negative PROTEIN (test code = 2887-8) Negative Negative UROBILIN (test code = 9373351048) Normal Normal BILIRUBIN (test code = 5085272291) Negative Negative NITRITE (test code = 4784063156) Negative Negative LEUK MARVIN (test code = 4438030007) 25/uL Negative A RBC/HPF (test code = 2183999747) See_Comment [Automated messa ge] The system which generated this result transmitted reference range: 0 - 3 HPF. The reference range was not used to interpret this result as normal/abnormal. WBC/HPF (test code = 8385835027) See_Comment [Automated messa ge] The system which generated this result transmitted reference range: 0 - 5 HPF. The reference range was not used to interpret this result as normal/abnormal. BACTERIA (test code = 0707022609) Few Negative A MUCOUS (test code = 3202295707) Slight Negative LPF A SQ EPITH (test code = 4221114774) HPF Lab Interpretation (test code = 55686-8) [facility] INFLUENZA A & B DIRECT [id number] 03:17:00* Test Item Value Reference Range Interpretation Comme nts Influenza A (test code = 56907-5) Negative Negative Influenza B (test code = 64704-1) Negative Negative Lab Interpretation (test cod e = 70224-9) Normal [facility] [id number] 03:15:00* Test Item Value Reference Range Interpretation Comme nts Streptococcus pyogenes (grou p A) antigen (test code = 94121-2) Negative Negative Lab Interpretation (test cod e = 02461-0) Normal [facility]- MRI LW JNT W/O CONT [id number] 09:09:00 [facility] : 1990 Sex: F Patient Name: SHARYN RUSSELL Unit No: [id number] EXAMS: CPT CODE: [id number] MRI LW JNT W/[place] [address] MRI OF THE RIGHT KNEE DIAGNOSIS: 1. [...] Cantu MD Technologist: Maikel Hodges,RT(R) Transcribed D/ (0909) ShaniquaJCL [facility] NAME: SHARYN RUSSELL [address] PHYS: Onur Morrow : 1990 AGE: 29 SEX: F [place], [place] [address] LOC: Y.MRI PHONE #: [phone] EXAM DATE: 09/13/2020 STATUS: REG CLI FAX #: [phone] RAD #: D/C DT PAGE 1 Signed Report Patient Name: SHARYN RUSSELL Unit No: [id number] EXAMS: CPT CODE: [id number] [place] LW JNT W/[place] [address] <Continued> Orig Print D/T: S: 09/13/2020 (0912) [facility] NAME: SHARYN RUSSELL [address] [facility] PHYS: Onur Morrow Yovani : 1990 AGE: 29 SEX: F [place] [address] LOC: Y.MRI PHONE #: [phone] EXAM DATE: 09/13/2020 STATUS: REG CLI FAX #: [phone] RAD #: D/C DT PAGE 2 Signed ReportHGB [id number] 04:41:00* Test Item Value Reference Range Interpretation Comme nts HEMOGLOBIN (test code = HGB) 10.2 g/dL 10.7-13.9 L HEMATOCRIT (test code = HCT) 30.6 % 32.1-42.1 L AB HIV 1 16:06:00* Test Item Value Reference Range Interpretation Comme nts AB HIV 1 2 (test code = XKA86BH) Nonreactive NonReactive It is recognized that currently available assays for thedetection of antibodies to HIV-1 and/or HIV-2 may notdetect all infected individuals. A negative test result doesnot exclude the possibility of exposure to or infection withHIV. HIV antibodies may be undetectable in some stages ofthe infection and in some clinical conditions. IS CONSENT FORM SIGNED FOR HIV TESTING? YAG HEPATITIS B [id number] 16:06:00* Test Item Value Reference Range Interpretation Comme nts AG HEPATITIS B SURFACE (test code = HBSAG) NONREACTIVE NONREACTIVE IS CONSENT FORM SIGNED FOR HIV TESTING? YAB HEPATITIS C [id number] 16:06:00* Test Item Value Reference Range Interpretation Comme nts AB HEPATITIS C (test code = HCVAB) NONREACTIVE NONREACTIVE SIGNAL TO CUTOFF (test code = CUTOFF) <0.02 <0.80 N IS CONSENT FORM SIGNED FOR HIV TESTING? YAB [id number] 16:06:00* Test Item Value Reference Range Interpretation Comme nts AB TREPONEMA (test code = TREPAB) NONREACTIVE NONREACTIVE IS CONSENT FORM SIGNED FOR HIV TESTING? YAB HIV 1 16:06:00* Test Item Value Reference Range Interpretation Comme nts AB HIV 1 2 (test code = YWW23GF) Nonreactive NonReactive It is recognized that currently available assays for thedetection of antibodies to HIV-1 and/or HIV-2 may notdetect all infected individuals. A negative test result doesnot exclude the possibility of exposure to or infection withHIV. HIV antibodies may be undetectable in some stages ofthe infection and in some clinical conditions. IS CONSENT FORM SIGNED FOR HIV TESTING? YAG HEPATITIS B [id number] 20:59:00* Test Item Value Reference Range Interpretation Comme nts AG HEPATITIS B SURFACE (test code = HBSAG) NONREACTIVE NONREACTIVE IS CONSENT FORM SIGNED FOR HIV TESTING? YAB HEPATITIS C [id number] 20:59:00* Test Item Value Reference Range Interpretation Comme nts AB HEPATITIS C (test code = HCVAB) NONREACTIVE NONREACTIVE SIGNAL TO CUTOFF (test code = CUTOFF) <0.02 <0.80 N IS CONSENT FORM SIGNED FOR HIV TESTING? MANJITB [id number] 20:59:00* Test Item Value Reference Range Interpretation Comme nts AB TREPONEMA (test code = TREPAB) NONREACTIVE NONREACTIVE IS CONSENT FORM SIGNED FOR HIV TESTING? YAB HIV 1 20:59:00* Test Item Value Reference Range Interpretation Comme nts AB HIV 1 2 (test code = IMT74CQ) NONREACTIVE IS CONSENT FORM SIGNED FOR HIV TESTING? YAG HEPATITIS B [id number] 20:17:00* Test Item Value Reference Range Interpretation Comme nts AG HEPATITIS B SURFACE (test code = HBSAG) NONREACTIVE NONREACTIVE IS CONSENT FORM SIGNED FOR HIV TESTING? YAB HEPATITIS C [id number] 20:17:00* Test Item Value Reference Range Interpretation Comme nts AB HEPATITIS C (test code = HCVAB) NONREACTIVE SIGNAL TO CUTOFF (test code = CUTOFF) <0.80 IS CONSENT FORM SIGNED FOR HIV TESTING? YAB [id number] 20:17:00* Test Item Value Reference Range Interpretation Comme nts AB TREPONEMA (test code = TREPAB) NONREACTIVE NONREACTIVE IS CONSENT FORM SIGNED FOR HIV TESTING? YAB HIV 1 20:17:00* Test Item Value Reference Range Interpretation Comme nts AB HIV 1 2 (test code = NTC36FS) NONREACTIVE IS CONSENT FORM SIGNED FOR HIV TESTING? YCBC W/AUTO [id number] 19:51:00* Test Item Value Reference Range Interpretation [...] code = PLTMR) NORMAL NORMAL AMNISURE (ROM) [id number] 23:28:00* Test Item Value Reference Range Interpretation Comme nts AMNISURE (ROM) TEST (test co de = AMNI) NON-RUPTURED NON-RUPTURE : *Specimen Comment: LDO CAmfrankure QC OK? YES- US [facility] [id number] 10:01:00Patient Name: SHARYN RUSSELL Unit No: [id number] EXAMS: CPT CODE: [id number] US [facility] [id number] [facility] [address] [place], [place] [address] OBSTETRICAL ULTRASOUND REPORT ---- Pat. Name: SHARYN RUSSELL Pat. No: [id number] Study Date: 10/29/2019 9:11am , Age: 13 1990, 28 LMP: 01/16/2019 GA by LMP:40w6d GA by 1st: 40w6d GA by US: 36w3d GA Selected: 39w6d (From Known E) DANNA: 10/30/2019 Referring MD: MARIO FERRER Stone Gang Sawyer: Julia Sol RDMS CPT4: USPREGFU Admitting MD: MARIO FERRER Hist/Ind: SCAN 2 FU GROWTH MEASURE MENTS AGE GROWTH EVALUATION Measurement GA Range Srce %for GA Ratios ----- ---- ------- BPD 8.6 cm 35w1d (46z0g-02g1c) Hadl BPD <05 FL/BPD 0.85 (0.71 - 0.87) HC 32.5 cm 36w2d (05p4y-94q9g) Hadl HC <05 FL/AC 0.22 (0.20 - 0.24) APD10.2 cm APD HC/AC 0.97 (0.89 - 1.08) TAD 11.1 cm TAD CI 0.77 (0.70 - 0.86) AC 33.5 cm 37w4d (16u2a-3 0w1d) Hadl AC 10% FL 7.3 cm 37w2d (78l5y-82v7r) Hadl FL 12% HL 6.2 cm 36w0d (88z1j-28b3j) Monster HL <05 GA for sonogram 36w3d (56x0z-05g8o) Weight Estimate: based on (BPD,HC,AC,FL) Hadlock Weight: 3086 gm (4612-9674) Hadlo : 6lbs, 12oz Normal: 3264 gm (6129-0660) Brenn Wt% 36% for 39.9 wks Heart Rate: 126 bpm Amniotic Fluid Index: 16.0cm (07.1-21.6) Q1: 3.5cm Q2: 4.2cm Q3: 4.0cm Q4:4.3cm MATERNAL ANATOMY Ovaries LxHxW (cm) Right 2.2 x 1.5x 2.4 Vol: 4.1cc Left 2.2 x 1.6 x 2.0 Vol: 3.7cc CLINICAL SUMMARY Type of Gestation: Patten Intrauterine in vertex presentation. size is appropriate for gestational age. growth: Consistent with normal growth motion and organs seen: [facility] NAME: SHARYN RUSSELL LUKASRaghav Radiology Department PHYS: Mario Saunders III, MD [address] : 1990 AGE: 29 SEX: [place], [place] [address] LOC: MARLENA PHONE #: [phone] EXAM DATE: 10/29/2019 STATUS: REG CLI FAX #: [phone] RAD NO: Page 1 Signed Report (CONTINUED) Patient Name: SHARYN RUSSELL Unit No: [id number] EXAMS: CPT CODE: [id number] [place] [address] (Continued) somatic activity observed body and limb [...] t.CALIR.CER Orig Print D/T: S: 10/29/2019 (1001) [facility] NAME: SHARYN RUSSELL Radiology Department PHYS: Mario Saunders III, MD [address] : 1990 AGE: 29 SEX: [place] [address] LOC: [facility] PHONE #: [phone] EXAM DATE: 10/29/2019 STATUS: REG CLI FAX #: [phone] RAD NO: Page 2 Signed Report Patient Name: MORASHARYN GAYTANRaghav Unit No: [id number] EXAMS: CPT CODE: [id number] [place] [address] (Continued) [facility] NAME: SHARYN RUSSELL Radiology Department PHYS: Mario Saunders III, MD [address] : 1990 AGE: 29 SEX: F [place] [address] : [facility] PHONE #: [phone] EXAM DATE: 10/29/2019 STATUS: REG CLI FAX #: [phone] RAD NO: P age 5 Signed Report- US PREG AFTER [id number] 12:18:00Patient Name: SHARYN RUSSELL Unit No: [id number] EXAMS: CPT CODE: [id number] US PREG AFTER TRI [address] [facility] [address] [place], [place] [address] OBSTETRICAL ULTRASOUND REPORT ------ Pat. Name: SHARYN RUSSELL Pat. No: [id number] Study Date: 06/09/2019 10:46am , Age: 13 1990, 28 LMP: 01/16/2019 GA by LMP: 20w4d GA by US: 18w6d GA Selected: 20w4d (LMP) DANNA: 10/23/2019 Referring MD: Nabil Schmitt Stone Gang Sawyer: Julia Sol RDMS CPT4: [id number] Admitting MD: MARIO FERRER Hist/Ind: SCAN 1 ANATOMY SCAN/DATES -- MEASUREMENTS AGE GROWTH EVALUATION Measurement GA Range Srce %for GA Ratios ----- ---- ------- BPD 4.2 cm 18w4d (41n6a-46l3v) Hadl BPD <05 FL/BPD 0.71 HC 16.2 cm 18w6d (17w2d- 20w3d) Hadl HC <05 FL/AC 0.22 APD 4.2 cm APD HC/AC 1.18 (1.06 - 1.24) TAD 4.5 cm TAD CI 0.76 (0.70 - 0.86) AC 13.7 cm 18w6d (87p7o-22b4w) Hadl AC 9% FL 3.0 cm 18w6d (83q9w-34m6s) Hadl FL 13% HL 2.9 cm 19w3d (86x6d-36k1o) Monster HL 31% GA for sonogram 18w6d (33b4c-08e1k) Weight Estimate: based on (BPD,HC,AC,FL) Hadlock Weight: 276 gm (236-317) Hadlock : 0lbs, 9oz Cervical Length:4.9 cm Heart Rate: 158 bpm CLINICAL SUMMARY Type of Gestation: Patten Intrauterine in variable presentation. size is SLIGHTLY LESS THAN EXPECTED for gestational age. growth: RECOMMEND CORRELATION WITH EARLY OFFICE SCAN motion and organs seen: heart motion seen somatic activity observed body and limb movements seen Four chamber heart observed Left ventricular outflow tract (LVOT) seen Right ventricular outflow tract (RVOT) seen Regular cardiac rhythm observed Normal intracranial anatomy seen Umbilical cord insertion in fetus seen stomach, Renal Fossa, Bladder and Spine seen Three vessel umbilical cord noted [facility] NAME: SHARYN RUSSELL Radiology Department PHYS: Mario Saunders III, MD [address] : 1990 AGE: 28 SEX:F [place], [place] [address] LOC: [place].RAD PHONE #: [phone] EXAM DATE: 06/09/2019STATUS: PB MALDONADO FAX #: [phone] RAD NO: Page 1 Signed Report (CONTINUED) Patient Name: SHARYN RUSSELL Unit No: [id number] EXAMS: CPT CODE: [id number] US PREG AFTER TRI 23602 (Continued) abnormalities observed: None seen at this [...] Velasquez MD CC: Mario Ferrer III, MD Technologist:Julia Sol RDMS Probe: Trnscrbd D/ (3515) t.CALIRJUAN Orig Print D/T: S: 06/09/2019(1212) [facility] NAME: SHARYN RUSSELL Radiology Department PHYS: Mario Saunders III, MD [address] : 1990 AGE: 28 SEX: F [place] [address] : [facility] PHONE #: [phone] EXAM DATE: 06/09/2019 STATUS: REG CLI FAX #: [phone] RAD NO: Page 2 Signed Report Patient Name: SHARYN RUSSELL Unit No: [id number] EXAMS: CPT CODE: [id number] USPREG AFTER TRI 56211 (Continued) [facility] NAME: RUSSELL,SHARYN King Radiology Department PHYS: Mario Saunders III, MD [address] : 1990 AGE: 28 SEX: F [place], [place] [address] LOC: [facility] PHONE #: [phone] EXAM DATE: 06/09/2019 STATUS: REG CLI FAX #: [phone] RAD NO: Page 3 Signed Report Notes Date/Time Note Provider Source 2025-05-28 13:46:30 Pt discharged with diagnosis of RLQ abd pain. Printed and verbal instructions reviewed with and given to pt. Prescriptions given x 2. Pt verbalized understanding of teaching, medication, and recommended follow-up. Denies questions or concerns at this time. Pt ambulatory at discharge. Appears in no apparent distress. No ataxia noted. Shima Rodriguez RN [facility] 2025-05-28 11:15:27 Sharyn Osman is a 34 year old female arrived to ED via personal means with CC of severe Right lower abdominal pain with N/V since 929 today. Gayatri Bettencourt RN [facility] 2024-08-05 12:57:45 Pt given printed and verbal discharge instructions regarding enteritis, periumbilical abdominal pain, diarrhea, nausea, encouraged hydration, 3 Prescriptions provided Discussed antibiotic therapy and to take until all completed unless adverse reaction occurs - if occurs, discontinue medication and follow up with pcp/seek medical attention Pt verbalized understanding of instructions, pt awake alert oriented, resp reg unlabored, skin w/d, color appropriate for race, moves all ext well,pt encouraged to follow up with pcp. Advised to seek medical attention for new/prolonged/worsening of symptoms, Symptoms improved. No adverse reaction to meds given in ER noted upon discharge PIV d'cd, dressing to site, catheter in tact. Awake, alert oriented, resp reg unlabored, skin w/d, pt leaving amb with steady gait, in no apparent distress, Angela Cerrato RN [facility] 2024-08-05 10:37:26 Periumbilical pain that started last night. States she has to "pull my knees up and push in" to decrease pain. Bridgette Saleh RN [facility] 2023-06-21 14:02:04 Formatting of this n ote might be different from the original. Pt discharged home. Given all education and information regarding care/management; fever control; and follow up importance. Also informed of my chart results . Pt verbalized understanding. Alert and ambulatory to pov with family. Azucena Gonzalez RN [facility] 2023-06-21 13:28:27 Formatting of this n ote might be different from the original. Patient has URI symptoms that started today. Been around somebody with covid. Kodak Lemos RN [facility] 2023-06-21 13:20:00 Formatting of this n ote is different from the original. [facility] Emergency Department Note Patient Name: Sharyn Russell Date of : 1990 32 year old female Treatment Room: [place] [address] Primary Care Physician: PATIENT DOES NOT HAVE A PCP Patient Escorted by: Family [5] Mode of Arrival: Personal means [1] EMS Treatment Prior to ED Arrival: Travel and Exposure Screening: Symptoms Does patient have any of these symptoms?: (not recorded) Exposure Screening Has patient had contact with someone with a communicable disease in the last month?: (not recorded) Diseases exposed to:: (not recorded) Is Patient ?: (not recorded) Exposure Date: (not recorded) Chief Complaint: Chief Complaint Patient presents with URI History of Present Illness: The patient presents from home for evaluation for [...] active; Partners: Male; Control/Protection: None. Past Surgical History: Past Surgical History: [...] and oriented to person, place, and time. Radiology: No orders to display Lab Results: Lab Results - No data to display EKG: If EKG completed, see Procedure Note. Orders and Treatments: Orders Placed This Encounter Procedures COVID-19 (ID NOW TESTING) No orders of the defined types were placed in this encounter. First Provider Eval: ED Events Date/Time Event User Comments 06/21/23 1321 Medical Screening Begins REKHA COSTA DO -- 06/21/23 1321 First Provider Evaluation REKHA COSTA DO -- No notes of EC Admission Criteria type on file. ED COURSE Diagnosis/Impression as of 06/21/23 1341 Upper respiratory tract infection, unspecified type Procedures: Procedures MDM: Medical Decision Making The patient presents from home for evaluation for [...] She can follow-up with results on the [facility] cassy. Recommend she is ocxs-vej-[id number] cough and cold medications as needed for her symptoms. She remained stable here in the ER and is okay for discharge home with PCP follow-up. Problems Addressed: Upper respiratory tract infection, unspecified type: acute illness or injury Risk OTC drugs. [...] signed by: Rekha Costa DO 06/21/23 1341 [facility] 2023-05-10 15:26:20 Formatting of this n ote might be different from the original. Pt given printed and verbal discharge instructions regarding eye, encouraged hydration, Prescriptions provided Discussed ibuprofen and to take with food to avoid GI distress, alternate with Tylenol to help with pain and/or fever Discussed antibiotic therapy and to take until all completed unless adverse reaction occurs - if occurs, discontinue medication and follow up with pcp/seek medical attention Discussed medication side affects and to avoid driving/operating machinery/or engaging in activities requiring alertness while taking. Pt verbalized understanding of instructions,pt encouraged to follow up with pcp and or specialist Awake, alert oriented, resp reg unlabored, skin w/d, pt leaving in no apparent distress, Ryanne Hwang RN [facility] 2023-05-10 15:24:26 Formatting of this n ote might be different from the original. Ambulatory steady gait to restroom [facility] 2023-05-10 14:18:38 Formatting of this n ote might be different from the original. Patient CO of left eye pain/pressure starting today, patient left eye is red and states her vision is a little blurry. Patient also CO of electric shock feeling starting 2 days ago on the right side of her face and a headache. Marc Morales RN [facility] 2022-05-18 18:31:00 [facility] ([facility]) OB Disch REPORT#:[id number] REPORT STATUS: Signed DATE:05/18/22 TIME: 1830 PATIENT: SHARYN RUSSELL UNIT #: [id number] ROOM/BED: [address] : 92 AGE: 31 SEX: F ATTEND: Abel Mcgovern MD ADM AUTHOR: Abel Mcgovern MD * ALL edits or amendments must be made on the electronic/computer document * Subjective Subjective Admission EGA: Weeks: 35 EGA at delivery (wks/days): 35 2/7 wks Status/day: post , post operative Patient reports: Patient reports: No: complaints. Nursing reports: Nursing reports: No: complaints. Objective General VS: Vital Signs Date Temp Pulse Resp B/P B/P Mean Pulse Ox FiO2 05/18 97.5-98.7 82-98 18 111-138/76-88 Last Documented: Result Date Time B/P 111/05/18 0837 Temp 97.5 07/28 0837 Pulse 82 05/18 0837 Resp 18 05/18 0837 Pulse Ox 98 05/17 1609 B/P Mean 77.0 05/15 0100 PATIENT WEIGHT: Weight (lb): 226 Weight (oz): 6.64 Weight (kg): 102.700 Physical Exam Cardiac: normal rhythm Lungs: clear to auscultation, no rales, no rhonchi, unlabored breathing Neuro: Exam: alert, oriented x3, normal speech Abdomen: post gravid, soft, no abnormal tenderness, no guarding, no rebound tenderness, normoactive bowel sounds Incision site: well approximated edges, dry, no drainage, no inflammation Lower extremities: Edema: none Discharge Summary General Assessment: nml progress Hospital course: spontaneous labor, repeat LTCS in labor, epidural anesthesia, spinal anesthesia, nml postop/postpart care Discharge condition: stable Discharge to: Home/Self Care Discharge diagnosis: previous uterine incision, pre-term labor, multiple gestation Baby A: status: live born Gender: male Plan: routine care Discharge Instructions Instructions: specific instr as noted Diet: Resume Home Diet/Feeds Activity: As Tolerated Additional discharge routines: Attending Follow-Up Discharge meds: Continue taking these medications: PNV WITH FE FUMARATE/FA () 1 EACH TAB 1 TABLET ORAL DAILY. Start taking the following new medications: HYDROcodone/APAP (HYDROcodone/APAP 10/325) 10 MG-325 MG TAB 1 TABLET ORAL EVERY 4 HOURS NEEDED. as needed for SEVERE PAIN (SCALE 7- 10) Qty = 30 No Refills IBUPROFEN (MOTRIN) 600 MG TAB 600 MILLIGRAM ORAL EVERY 6 HOURS. Qty = 60 No Refills Prescriptions: e-prescribe at 1833 RPT #:[id number] END OF REPORT [facility] 2022-05-17 09:16:00 [facility] ([facility]) OB Postpart Progr Note REPORT#:[id number] REPORT STATUS: Signed DATE:05/17/22 TIME: 915 PATIENT: SHARYN RUSSELL UNIT #: [id number] ROOM/BED: [address] : 92 AGE: 31 SEX: F ATTEND: Abel Mcgovern MD ADM AUTHOR: Abel Mcgovern MD * ALL edits or amendments must be made on the electronic/computer document * Subjective Subjective Admission EGA: Weeks: [...] speech Abdomen: soft, no abnormal tenderness, no guarding, no rebound tenderness, normoactive bowel sounds Incision site: well approximated edges, dry, no drainage, no inflammation Diagnosis, Assessment Plan Diagnosis, Assessment Plan Assessment: nml progress Plan: routine care at 0918 RPT #:[id number] END OF REPORT [facility] 2022-05-16 08:27:00 [facility] ([facility]) OB Postpart Progr Note REPORT#:[id number] REPORT STATUS: Signed DATE:05/16/22 TIME: 826 PATIENT: SHARYN RUSSELL UNIT #: [id number] ROOM/BED: [address] : 92 AGE: 31 SEX: F ATTEND: Abel Mcgovern MD ADM AUTHOR: Abel Mcgovern MD * ALL edits or amendments must be made on the electronic/computer document * Subjective Subjective Admission EGA: Weeks: [...] speech Abdomen: soft, no abnormal tenderness, no guarding, no [...] (Auto) (14.5 - 29.7 %) 10.8 L [place] % (Auto) (3.6 - 10.2 %) 9.1 Eos % (Auto) (0.0 - 3.0 %) 0.0 Baso % (Auto) (0.1 - 0.9 %) 0.3 Neut # (Auto) (K/mm3) 14.6 Lymph # (Auto) (K/mm3) 2.0 [place] # (Auto) (K/mm3) 1.7 Eos # (Auto) (K/mm3) 0 Baso # (Auto) (K/mm3) 0.1 Diagnosis, Assessment Plan Diagnosis, Assessment Plan Assessment: nml progress Plan: routine care at 0828 RPT #:[id number] END OF REPORT [facility] 2022-05-15 11:05:00 [facility] ([facility]) OB Postpart Progr Note REPORT#:[id number] REPORT STATUS: Signed DATE:05/15/22 TIME: 1105 PATIENT: SHARYN RUSSELL UNIT #: [id number] ROOM/BED: [address] : 92 AGE: 31 SEX: F ATTEND: Abel Mcgovern MD ADM AUTHOR: Abel Mcgovern MD * ALL edits or amendments must be made on the electronic/computer document * Subjective Subjective Admission EGA: Weeks: [...] speech Abdomen: soft, no abnormal tenderness, no guarding, no rebound tenderness, normoactive bowel sounds Result [...] (14.5 - 29.7 %) 10.8 L 16.7 [place] % (Auto) (3.6 - 10.2 %) 9.1 12.0 H Eos % (Auto) (0.0 - 3.0 %) 0.0 0.2 Baso % (Auto) (0.1 - 0.9 %) 0.3 0.5 Neut # (Auto) (K/mm3) 14.6 9.4 Lymph # (Auto) (K/mm3) 2.0 2.3 [place] # (Auto) (K/mm3) 1.7 1.7 Eos # (Auto) (K/mm3) 0 0.03 Baso # (Auto) (K/mm3) 0.1 0.1 Serology Treponema pallidum Ab (NONREACTIVE) NONREACTIVE Hep Bs Antigen (NONREACTIVE) NONREACTIVE Hepatitis C Antibody (NONREACTIVE) NONREACTIVE Hep C Ab Signal/Cutoff (<0.80) 0.04 Diagnosis, Assessment Plan Diagnosis, Assessment Plan Assessment: nml progress Plan: routine care at 1106 [facility] #:[id number] END OF REPORT [facility] 2022-05-14 22:45:00 [id number] [facility] [place] [id number] [place], [place] [address] PATIENT NAME: SHARYN RUSSELL ADMIT DATE: 05/12/22 ACCOUNT NO: [id number] ROOM NO: [facility] AGE: 31 SEX: F ADMITTING PHYSICIAN: Abel Mcgovern MD ATTENDING PHYSICIAN: Abel Mcgovern MD OPERATION DATE: 05/14/2022 PREOPERATIVE DIAGNOSES: 1. A 35 weeks and 2 days' gestation. 2. Two previous sections. 3. labor. POSTOPERATIVE DIAGNOSES: 1. A 35 weeks and 2 days' gestation. 2. Two previous sections. 3. labor. PROCEDURE PERFORMED: Repeat low transverse section. SURGEON: Abel Mcgovern MD. HAND TUFTER: Presley Ortiz MD, an bilingual medical assistant is needed since section is a complicated procedure requiring 2-person operation. ANESTHESIA: Spinal epidural by Dr. Burrows. ESTIMATED BLOOD LOSS: 600 mL. COMPLICATIONS: None. FINDINGS: Viable male infant in vertex presentation with nuchal cord x1, loose, reduced. weight 2200 grams. Apgars not assigned by the manjeet yet. Normal uterus, ovaries, and fallopian tubes. The previous has a window. DESCRIPTION OF THE PROCEDURE: The patient has been in labor and having low back pain. Due to the patient's habitus, her contraction was not picked until today. She was jeremias every 6 minutes. Therefore, she was taken to OR where spinal and epidural anesthesia was placed. The patient was placed on the operating table in left tilt position. Adequate level of anesthesia was confirmed. Abdomen was prepped and draped in the usual sterile fashion. A Pfannenstiel skin incision was performed with scalpel over the old scar. Abdomen was entered in the usual fashion without difficulty. Bladder was retracted with bladder blade. Low transverse uterine incision was performed with scalpel. Clear amniotic fluid was noted. Industry Operations Investigator's right hand reached over baby's head and bilingual medical assistant applied fundal pressure, baby was easily delivered. Nose and mouth were suctioned. Cord was doubly clamped and cut between clamps. Baby was passed to the neonatology team. Cord blood was obtained. Placenta manually extracted. Uterus was cleaned and remained in the PATIENT NAME: SHARYN RUSSELL abdominal cavity. The uterine incision was repaired with #1 chromic in running-locking fashion. Hemostasis was achieved with additional pdnkpa-tb-sdrip suture. Abdomen was cleaned with some moist lap, hemostasis was observed. The peritoneum was approximated with 0 Vicryl in simple running fashion. Rectus abdominal muscle was reapproximated with 0 Vicryl in simple running fashion. The operative field was irrigated copiously, irrigant aspirated. Hemostasis was observed. The fascia was reapproximated with #1 Vicryl in simple running fashion. Subcutaneous space was cleaned with moist lap, hemostasis was achieved with Bovie. Subcutaneous fat was reapproximated with 2-0 plain gut. Skin was reapproximated with 3-0 Monocryl in subcuticular stitch. Dermabond was used to seal the skin. Afterward, the patient was transferred to recovery in stable condition. All instrument and lap counts were correct x3. Dictated By: Abel Mcgovern MD WT: OP:FLIZBETH/TERELL/ERVIN Conf#: [id number]#: [id number] Authenticated by Abel Mcgovern MD On 05/15/2022 08:57:46 PM at 0857 PATIENT NAME: SHARYN RUSSELL [facility] 2022-05-14 22:38:00 [facility]) OB Delivery Note REPORT#:[id number] REPORT STATUS: Signed DATE:05/14/22 TIME: 2237 PATIENT: SHARYN RUSSELL UNIT #: [id number] [facility] AGE: 31 SEX: F ATTEND: Abel Mcgovern MD ADM AUTHOR: Abel Mcgovern MD * ALL edits or amendments must be made on the electronic/computer document * OB Delivery Nursing Documentation Review Nursing data: The data set between the solid lines has been imported from nursing documentation. Any exceptions have been noted below under Provider comments. _ ROM date: 05/14/22 ROM time: 2124 Membranes rupture method: AROM Amniotic fluid color: Clear Amniotic fluid amount: Steroids prior to arrival: Antibiotic prophylaxis given: Post hemorrhage risk score: Medium Risk for Hemorrhage. 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 Admission EGA: Weeks: 35 EGA at delivery [...] mother stable Infant's condition: infant stable in nursery at 2241 RPT #:[id number] END OF REPORT [facility] 2022-05-14 11:56:00 [facility] ([facility]) OB Antepartum Prog Note REPORT#:[id number] REPORT STATUS: Signed DATE:05/14/22 TIME: 1156 PATIENT: SHARYN RUSSELL UNIT #: [id number] ROOM/BED: [address] : 92 AGE: 31 SEX: F ATTEND: Abel Mcgovern MD ADM AUTHOR: Abel Mcgovern MD * ALL edits or amendments must be made on the electronic/computer document * Subjective Subjective Admission EGA: Weeks: [...] 0745 Temp 98.3 05/14 0745 Pulse 96 / 0745 Resp 18 05/14 0745 Vital Signs Date Temp Pulse Resp B/P B/P Mean Pulse Ox FiO2 05/13-05/14 98.3-99.0 75-111 18 105-125/51-67 72.0-88.0 96-98 PATIENT WEIGHT: Weight (lb): 226 Weight (oz): 6.64 Weight (kg): 102.700 Membranes: Intact Uterine activity: Monitor: toco Frequency (description): occasional Frequency (minutes): 8 Duration (seconds): 15 Intensity: moderate Resting tone: relaxed Tachysystole: No HEENT: normocephalic w/o injury Cardiac: regular rate and rhythm Lungs: clear to auscultation, no rales, no rhonchi, unlabored breathing Neuro: Exam: alert, oriented x3, normal speech Abdomen: gravid, soft, no abnormal tenderness, no guarding, [...] Assessment Plan Diagnosis, Assessment Plan Assessment: threatened labor, Pt had two section last [...] her Magnesium in case she has nonmonitorable ctx. Plan: If [place] makes her lower back pain decreases, will d/c home with it. If not helpful, consider delivery tomorrow at 1202 RPT #:[id number] END OF REPORT [facility] 2022-05-13 22:39:00 [facility]) OB Antepartum Prog Note REPORT#:[id number] REPORT STATUS: Signed DATE:05/13/22 TIME: 2238 PATIENT: SHARYN RUSSELL UNIT #: [id number] ROOM/BED: [address] : 92 AGE: 31 SEX: F ATTEND: Abel Mcgovern MD ADM AUTHOR: Abel Mcgovern MD * ALL edits or amendments must be made on the electronic/computer document * Subjective Subjective Admission EGA: Weeks: [...] Lungs: clear to auscultation, no rales, no rhonchi, unlabored breathing Neuro: Exam: alert, oriented x3, normal speech Abdomen: gravid, soft, no abnormal tenderness, no guarding, [...] Assessment Plan Diagnosis, Assessment Plan Assessment: threatened labor, Pt had two section last [...] her Magnesium in case she has nonmonitorable ctx. Plan: Finished Celestone series. Start Magnesium. Gave her IVF for ketonuria at 2244 RPT #:[id number] END OF REPORT [facility] 2022-05-12 22:36:00 [facility] ([facility]) OB Admission / H P REPORT#:[id number] REPORT STATUS: Signed DATE:05/12/22 TIME: 2235 PATIENT: SHARYN RUSSELL UNIT #: [id number] ROOM/BED: [address] : 92 AGE: 31 SEX: F ATTEND: Abel Mcgovern MD ADM AUTHOR: Abel Mcgovern MD * ALL edits or amendments must be made on the electronic/computer document * OB History Nursing Documentation Review Nursing data: The data set between the solid lines has been imported from nursing documentation. Any exceptions have been noted below under Provider comments. Current data Steroids prior to arrival: ROM date: ROM time: EDC date: 06/16/22 Gestational age (labor triage): Post hemorrhage risk score: Medium Risk for Hemorrhage. Prior history : 4 Para: 2 [...] [] Chief complaint: uterine contractions, nausea and vomiting HPI: Pt is a 31 y/o WF at 35 weeks c/o a few days' h/o N/V. Now she has abdominal cramps. She denies VB, ROM, MERIDA, scotomata, RUQP, EP. Shew had her second C/S on 05/06/2021. She c/o pain over the uterine scar area history: : 4 Term: 2 Living children: 2 Previous : low uterine trans incis Number of prev : 2 Current : Best EDC: 06/16/22 Admission EGA (weeks) 35 Labs: Blood type: O Rh: positive Rubella: immune Hepatitis B: negative HIV: negative STD: negative Syphilis: currently negative GBS: unknown Past History Past Medical History: Denies: Alcoholism/subst abuse, Anemia, Arthritis, Asthma, Atrial fibrillation, [...] disease, Periph arterial disease, Pressure ulcer, Prior NE, Schizophrenia, Sickle cell disease, Steroid use, Thyroid disorder, Transfusion history, Tuberculosis, Urinary tract infection, Venous thromboembolism. Past Surgical History: Reports: . Denies: Abdominal surgery, Appendectomy, Bariatric procedure, CABG, Carotid endarterectomy, Cholecystectomy, Dialysis shunt/AV fistula, Heart valve procedure, Hernia repair, Hysterectomy, Pacemaker, Spine surgery, Splenectomy, Tonsillectomy, Transplant recipient, Vascular procedure, = , Amputation, Anesthesia complications, Bilateral tubal ligation, Bladder surgery, Breast biopsy/procedure, Carpal tunnel release, Cranial procedure, D C, Eye surgery, Feeding tube, Hip procedure, ICD, Indwelling IV catheter, Knee procedure, Lithotripsy, Lung surgery, Nephrectomy, PCI, Prostate surgery, Thyroidectomy, Tracheotomy, COMMERCIAL ROOFING ESTIMATOR shunt. Alcohol Use Denies EtOH use Drug Use Denies recreational drugs Smoking status: Smoking status for patients 13 years old or older: Unknown,if ever smoked Allergies: Coded Allergies: amoxicillin [...] Lungs: clear to auscultation, no rales, no rhonchi, unlabored breathing Breasts: deferred Neuro: Exam: alert, oriented x3, normal speech Abdomen: gravid, soft, no abnormal tenderness, no guarding, [...] pH (5 - 9) 6.0 Ur Specific Grubbs (1.001 - 1.035) 1.019 Urine Protein (NEG) [...] Plan Diagnosis, Assessment Plan Assessment/Impression: vomiting, dehydration ketonuria Plan: antiemetics, IVF, betamethasone admin at 2252 RPT #:[id number] END OF REPORT [facility] 2022-04-14 22:41:00 [facility] ZENA[facility] Evaluation Note REPORT#:[id number] REPORT STATUS: Signed DATE:04/14/22 TIME: 2240 PATIENT: SHARYN RUSSELL UNIT #: [id number] ROOM/BED: : 92 AGE: 31 SEX: F ATTEND: Abel Mcgovern MD ADM DT: AUTHOR: Abel Mcgovern MD * ALL edits or amendments must be made on the electronic/computer document * See Addendum ZENAIDA History Nursing Documentation Review Nursing data: The data set between the solid lines has been imported from nursing documentation. Any exceptions have been noted below under Provider comments. Current data Steroids prior [...] Chief complaint: suspected ruptured memb, decreased movement, discomfort HPI: Pt is a 31 y/o WF at 29 3/7 wks c/o acute onset of leaking large amount amniotic fluid. She c/o decreased movement. She also c/o feeling warm.She denies ctx, VB, MERIDA, scotomata, RUQP, EP history: : 5 Term: [...] surgical history: Social history: employed, , no alcohol use, no tobacco use, no drug use Allergies Coded Allergies: amoxicillin (From AUGMENTIN) (Intermediate, RASH 04/14/22) clavulanic acid (From AUGMENTIN) (Intermediate, RASH 04/14/22) Review of Systems Constitutional: Denies: chills, fatigue, fever. Respiratory: Denies: JEAN (dyspnea on exertion), hemoptysis, non productive cough. Cardiovascular: Denies: chest pain, JEAN (dyspnea on exertion), edema. GI: Reports: constipation. Denies: diarrhea, nausea, vomiting. : Reports: . Denies: pelvic pain, vaginal bleeding. Objective General VS: Last Documented: Result Date Time B/P Mean 92.0 04/14 1644 B/P 121/72 04/14 1644 Pulse 83 04/14 1644 Vital Signs Date Temp Pulse Resp B/P B/P Mean Pulse Ox FiO2 / 83 121/72 92.0 PATIENT WEIGHT: Weight (lb): 220 Weight (oz): 7.4 Weight (kg): 100.000 Physical Exam HEENT: normocephalic w/o injury Cardiac: regular rate and rhythm Lungs: clear to auscultation Breasts: deferred Neuro: Exam: alert, oriented x3, normal speech Abdomen: gravid, soft, no abnormal tenderness, no guarding, no rebound tenderness, normoactive bowel sounds Musculoskeletal: normal inspection Genitourinary: no bladder distention Uterine activity: Monitor: toco Frequency (description): irritability FHR evaluation: Baseline: 130 bpm Variability: marked > 25 bpm Accelerations: 15 X 15 Decelerations: none FHR category: category 1 Membranes: Membranes: status undetermined Lower extremities: Edema: none Results Findings/Data: Laboratory Tests: 04/14 164 Other Body Source Membranes Rupture NON-RUPTURED Serology SARS-CoV-2 Ag (Rapid) (NEGATIVE) NEGATIVE Diagnosis, Assessment Plan Diagnosis, Assessment Plan Assessment/Impression: symptoms of PROM but tested negative, decreased movement but now reactive NST no decel, catagory I Plan: discharge home at 1016 Addendum 1: 05/06/22 2241 by Abel Mcgovern MD NST time is 3 hours at 2241 RPT #:[id number] END OF RE[facility] 2022-04-06 08:44:00 [facility] ZENAIDA Evaluation Note REPORT#:[id number] REPORT STATUS: Signed DATE:04/06/22 TIME: 0844 PATIENT: SHARYN RUSSELL UNIT #: [id number] ROOM/BED: : 92 AGE: 31 SEX: F ATTEND: Abel Mcgovern MD ADM DT: AUTHOR: Abel Mcgovern MD * ALL edits or amendments must be made on the electronic/computer document * ZENA[facility] History Nursing Documentation Review Nursing data: The data set between the solid lines has been imported from nursing documentation. Any exceptions have been noted below under Provider comments. Current data Steroids prior [...] nursing data: [] Chief complaint: uterine contractions, discomfort HPI: Pt is a 31 y/o LAF at 28 1/7 wks c/o epigastric pain radiating to back and bilateral lower back. Pain is not related to greasy food. She denies VB, ROM , MERIDA, scotomata history: : 5 Term: 2 Abortus: 2 Living children: 2 Previous : low uterine trans incis Number of prev : 2 Current : EDC: 06/27/22 EGA (weeks/days): 28 1/7 WKS Labs: Blood type: O Rh: positive Rubella: immune Hepatitis B: negative HIV: negative RPR: non-reactive STD: negative GBS: unknown Past medical history: denies PMH Past surgical history: Social history: employed, , no alcohol use, no [...] speech Abdomen: gravid, soft, no abnormal tenderness, no guarding, [...] PAIN Plan: discharge home, tried sedaqtion with Nocor-5 and phenergan 25 po. She slept for a while and pain is gone at 0855 RPT #:[id number] END OF REPORT [facility] 2022-03-02 23:39:00 [facility] [place] [facility] ZENAIDA Evaluation Note REPORT#:[id number] REPORT STATUS: Signed DATE:03/02/22 TIME: 2339 PATIENT: SHARYN RUSSELL UNIT #: [id number] ROOM/BED: : 92 AGE: 31 SEX: F ATTEND: Abel Mcgovern MD ADM DT: AUTHOR: Abel Mcgovern MD * ALL edits or amendments must be made on the electronic/computer document * [facility] History Nursing Documentation Review Nursing data: The data set between the solid lines has been imported from nursing documentation. Any exceptions have been noted below under Provider comments. Current data Steroids prior [...] nursing data: [] Chief complaint: uterine contractions, discomfort HPI: Pt is a 31 y/o WF at 23 2/7 wks c/o acute onset painful contraction since 1 hour before arrival at [facility]. She denies VB, ROM, MERIDA, scotomata, RUQP, EP. She admiited her 2 y/o daughter has stumble on her abdomin 2 days ago. In the last few nights her 10-months old baby has kept her up 5 times at night so she did not get good sleeo. She deneis unprotected sex, any infection sign history: : 5 Term: [...] surgical history: Social history: employed, , no alcohol use, no tobacco use, no drug use Allergies Coded Allergies: amoxicillin (From AUGMENTIN) (Intermediate, RASH 03/02/22) clavulanic acid (From AUGMENTIN) (Intermediate, RASH 03/02/22) Review of Systems Constitutional: Denies: chills, fatigue, fever. Respiratory: Denies: JEAN (dyspnea on exertion), hemoptysis, non productive cough. Cardiovascular: Denies: chest pain, JEAN (dyspnea on exertion), edema. GI: Reports: constipation. Denies: diarrhea, nausea, vomiting. : Reports: pelvic pain, . Denies: vaginal bleeding. Objective General VS: PATIENT WEIGHT: Weight (lb): 215 Weight (oz): 6.27 Weight (kg): 97.700 Physical Exam HEENT: normocephalic w/o injury Cardiac: regular rate and rhythm Lungs: clear to auscultation Breasts: deferred Neuro: Exam: alert, oriented x3, normal speech Abdomen: gravid, soft, no abnormal tenderness, no guarding, [...] pH (5 - 9) 7.0 Ur Specific Grubbs (1.001 - 1.035) 1.006 Urine Protein (NEG) [...] Phenergan 25 mg po at 2349 RPT #:[id number] END OF REPORT [facility] 2021-05-08 15:39:00 [facility] ([facility]) OB Disch REPORT#:[id number] REPORT STATUS: Signed DATE:05/08/21 TIME: 153 PATIENT: SHARYN RUSSELL UNIT #: [id number] ROOM/BED: 1997- : 92 AGE: 30 SEX: F ATTEND: Abel Mcgovern MD ADM AUTHOR: Abel Mcgovern MD * ALL edits or amendments must be made on the electronic/computer document * Subjective Subjective Admission EGA: Weeks: 38 Days: 0 EGA at delivery (wks/days): 38 weeks Status/day: post , post operative Patient reports: Patient reports: No: complaints. Nursing reports: Nursing reports: No: complaints. Objective General VS: Vital Signs Date Temp Pulse Resp B/P B/P Mean Pulse Ox FiO2 05/07-05/08 98.0-98.1 64-71 18 90-103/53-65 Last Documented: Result Date Time B/P 103/65 05/08 0715 Temp 98.0 05/08 0715 Pulse 71 05/08 0715 Resp 18 05/08 0715 Pulse Ox 99 05/07 0400 B/P Mean 89.0 05/06 1815 PATIENT WEIGHT: Weight (lb): Weight (oz): Weight (kg): 98.220860 Physical Exam Cardiac: normal rhythm Lungs: clear to auscultation Neuro: Exam: alert, oriented x3, normal speech Abdomen: post gravid, soft, no abnormal tenderness, no [...] % (Auto) (14.5 - 29.7 %) 18.7 [place] % (Auto) (3.6 - 10.2 %) 4.8 Eos % (Auto) (0.0 - 3.0 %) 0.2 Baso % (Auto) (0.1 - 0.9 %) 0.2 Neut # (Auto) (K/mm3) 9.4 Lymph # (Auto) (K/mm3) 2.3 [place] # (Auto) (K/mm3) 0.6 Eos # (Auto) (K/mm3) 0.03 Baso # (Auto) (K/mm3) 0.0 Other Body Source Membranes Rupture RUPTURED Discharge Summary General Assessment: nml progress, acute blood loss anemia, chronic anemia from Hospital course: repeat LTCS in labor, epidural anesthesia, spinal anesthesia, nml postop/postpart care, chronic anemia from , acute blood loss anemia Discharge condition: stable Discharge to: Home/Self Care Baby A: status: live born Gender: female 1 minute: 8 5 minutes: 8 Anomalies: none Plan: routine care Discharge Instructions Instructions: specific instr as noted Diet: Regular Activity: As Tolerated Additional discharge routines: Attending Follow-Up Discharge meds: Continue taking these medications: FERROUS SULFATE (FEOSOL) 325 MG TAB 325 MILLIGRAM ORAL DAILY. PNV WITH FE FUMARATE/FA () 1 EACH TAB 1 TABLET ORAL DAILY. Start taking the following new medications: ACETAMINOPHEN/CODEINE (TYLENOL WITH CODEINE #3 300/30 MG) 300 [...] timeframe: In 1-2 weeks at 1541 RPT #:[id number] END OF REPORT [facility] 2021-05-07 13:34:00 [facility] ([facility]) OB Postpart Progr Note REPORT#:[id number] REPORT STATUS: Signed DATE:05/07/21 TIME: 1334 PATIENT: SHARYN RUSSELL UNIT #: [id number] ROOM/BED: [address] : 92 AGE: 30 SEX: F ATTEND: Abel Mcgovern MD ADM AUTHOR: Abel Mcgovern MD * ALL edits or amendments must be made on the electronic/computer document * Subjective Subjective Admission EGA: Weeks: [...] speech Abdomen: soft, no abnormal tenderness, no guarding, no rebound tenderness Incision site: well approximated [...] % (Auto) (14.5 - 29.7 %) 18.7 [place] % (Auto) (3.6 - 10.2 %) 4.8 Eos % (Auto) (0.0 - 3.0 %) 0.2 Baso % (Auto) (0.1 - 0.9 %) 0.2 Neut # (Auto) (K/mm3) 9.4 Lymph # (Auto) (K/mm3) 2.3 [place] # (Auto) (K/mm3) 0.6 Eos # (Auto) [...] anemia, chronic anemia from Plan: routine care at 1335 [facility] #:[id number] END OF REPORT [facility] 2021-05-06 16:07:00 [id number] [facility] [place] [id number] PATIENT NAME: SHARYN RUSSELL ADMIT DATE: 05/06/21 ACCOUNT NO: [id number] ROOM NO: .1999 AGE: 30 SEX: F ADMITTING PHYSICIAN: Abel Mcgovern MD ATTENDING PHYSICIAN: Abel Mcgovern MD OPERATION DATE: 05/06/2021 PREOPERATIVE DIAGNOSES: 1. A 38 weeks gestation. 2. Previous section. 3. Prolonged premature rupture of membranes. 4. Low-grade temperature. POSTOPERATIVE DIAGNOSES: 1. A 38 weeks gestation. 2. Previous section. 3. Prolonged premature rupture of membranes. 4. Low-grade temperature. PROCEDURES: Repeat low transverse section. SURGEON: Abel Mcgovern MD HAND TUFTER: Dr. Presley Ortiz, an bilingual medical assistant needed since section is a complicated procedure requiring 2 person operation. ANESTHESIA: Spinal and epidural. ANESTHESIOLOGIST: Dr. Bolden. ESTIMATED BLOOD LOSS: 600 mL. All instrument and lap counts correct x3. FINDINGS: Viable female infant in vertex presentation with nuchal cord x1, loose, reduced. weight is 2940 grams. Apgars 8 at 1 minute and 8 at 5 minutes. Normal uterus, ovaries, fallopian tubes. PROCEDURE IN DETAIL: The patient was taken to OR where spinal and epidural anesthesia was placed by Dr. Bolden. The patient was placed on the operating table in left tilt position. Adequate level of anesthesia was confirmed. Abdomen was prepped and draped in usual sterile fashion. A Pfannenstiel skin incision performed with a scalpel. Abdomen was entered in usual fashion without difficulty. Bladder was retracted with a bladder blade. Low transverse uterine incision was performed with a scalpel. Clear amniotic fluid was noted. Industry Operations Investigator's right hand reached over baby's head and bilingual medical assistant applied fundal pressure, baby was easily delivered. Nose and mouth were suctioned. Cord was double clamped and cut between two clamps. Baby was passed to nurse. Cord blood was obtained. Placenta manually extracted. Uterus cleaned inside PATIENT NAME: SHARYN RUSSELL abdominal cavity. The uterine incision repaired with #1 chromic in running-locking fashion. Hemostasis was achieved with additional uijlca-fl-rtwcy suture. Abdomen was cleaned with moist lap, hemostasis was observed. Peritoneum was approximated with 0 Vicryl in simple running fashion. Rectus abdominis muscle reapproximated with 0 Vicryl in simple running fashion. Fascia reapproximated with #1 Vicryl in simple running fashion. The subcutaneous space was cleaned with moist lap. Hemostasis was achieved with Bovie. Subcutaneous fat was reapproximated with 2-0 plain gut. Skin was approximated with 3-0 Monocryl subcuticular stitch. Dermabond was used to seal the skin. Afterward, the patient was transferred to recovery room in stable condition. All instrument and lap counts correct x3. Dictated By: Abel Mcgovern MD WT: OP:FLIZBETH/TERELL/ERVIN Conf#: [id number]/DID#: [id number] Authenticated and Edited by Abel Mcgovern MD On 05/07/21 9:26:37 AM at 0929 PATIENT NAME: SHARYN RUSSELL [facility] 2021-05-06 16:06:00 [facility]) OB Delivery Note REPORT#:[id number] REPORT STATUS: Signed DATE:05/06/21 TIME: 1606 PATIENT: SHARYN RUSSELL UNIT #: [id number] ROOM/BED: [address] : [birth year] AGE: 30 SEX: F ATTEND: Abel Mcgovern MD ADM AUTHOR: Abel Mcgovern MD * ALL edits or amendments must be made on the electronic/computer document * OB Delivery Nursing Documentation Review Nursing data: The data set between the solid lines has been imported from nursing documentation. Any exceptions have been noted below under Provider comments. _ ROM date: ROM time: Membranes rupture method: Amniotic fluid color: Amniotic fluid amount: Steroids prior to arrival: Antibiotic prophylaxis given: Yes Post hemorrhage risk score: Medium Risk for Hemorrhage. Delivery date A: 05/06/21 Delivery time infant A: 1509 Birthweight (gm) infant A: 2940 Weight (lb) infant A: Weight (oz) A: Gender infant A: Female 1 minute infant A: 5 minutes A: 10 minutes A: Cord pH obtained infant A: Vacuum time A: Vacuum # pulls A: Vacuum # popoffs A: QBL at delivery: __ Provider comments on imported nursing data: [] Pre-delivery GBS status: GBS status: negative evaluation at delivery: COMMERCIAL LOAN ADMINISTRATOR Admission EGA: Weeks: 37 Days: 6 EGA [...] mother stable 's condition: infant stable in room Blood Loss/Details Blood loss at delivery: 600 mL at 1622 RPT #:[id number] END OF REPORT [facility] 2021-05-06 14:04:00 [facility] ([facility]) OB Admission / H P REPORT#:[id number] REPORT STATUS: Signed DATE:05/06/21 TIME: 1404 PATIENT: SHARYN RUSSELL UNIT #: [id number] ROOM[facility]BED: [facility] : 92 AGE: 30 SEX: F ATTEND: Abel Mcgovern MD ADM AUTHOR: Abel Mcgovern MD * ALL edits or amendments must be made on the electronic/computer document * OB History Nursing Documentation Review Nursing data: The data set between the solid lines has been imported from nursing documentation. Any exceptions have been noted below under Provider comments. Current data Steroids prior to arrival: ROM date: ROM time: EDC date: 05/20/21 Gestational age (labor triage): Post hemorrhage risk score: Medium Risk for Hemorrhage. Prior history : 3 Para: 1 [...] She denies VB, ctx, MERIDA, scotomata, RUQP, EP history: : 3 Term: 1 Abortus: 1 Living children: 1 Previous : low uterine trans incis Current : Admission EGA (weeks) 38 Admission EGA (days) 0 Labs: Blood type: O Rh: positive Rubella: non-immune Hepatitis B: negative HIV: negative STD: negative Syphilis: currently negative GBS: negative Past History Past Medical History: Denies: Alcoholism/subst abuse, Anemia, Arthritis, Asthma, Atrial fibrillation, [...] disease, Periph arterial disease, Pressure ulcer, Prior NE, Schizophrenia, Sickle cell disease, Steroid use, Thyroid disorder, Transfusion history, Tuberculosis, Urinary tract infection, Venous thromboembolism. Past Surgical History: Reports: . Denies: Abdominal surgery, Appendectomy, Bariatric procedure, CABG, Carotid endarterectomy, Cholecystectomy, Dialysis shunt/AV fistula, Heart valve procedure, Hernia repair, Hysterectomy, Pacemaker, Spine surgery, Splenectomy, Tonsillectomy, Transplant recipient, Vascular procedure, = , Amputation, Anesthesia complications, Bilateral tubal ligation, Bladder surgery, Breast biopsy/procedure, Carpal tunnel release, Cranial procedure, D C, Eye surgery, Feeding tube, Hip procedure, ICD, Indwelling IV catheter, Knee procedure, Lithotripsy, Lung surgery, Nephrectomy, PCI, Prostate surgery, Thyroidectomy, Tracheotomy, COMMERCIAL ROOFING ESTIMATOR shunt. Alcohol Use Denies EtOH use Drug Use Denies recreational drugs Smoking status: Smoking status for patients 13 years old or older: Never Smoker Medications: Home Medications: FERROUS SULFATE (FEOSOL) 325 MG PO DAILY PNV WITH FE FUMARATE/FA () 1 TAB PO DAILY Allergies: Coded Allergies: amoxicillin (From AUGMENTIN) (Intermediate, RASH 04/01/21) clavulanic acid (From AUGMENTIN) (Intermediate, RASH 04/01/21) Review of Systems Constitutional: Denies: chills, fatigue, fever. Respiratory: Denies: JEAN (dyspnea on exertion), hemoptysis, non productive cough. Cardiovascular: Denies: chest pain, JEAN (dyspnea on exertion), edema. GI: Reports: constipation. Denies: diarrhea, nausea, vomiting. : Reports: pelvic pain, . Denies: vaginal bleeding. Objective General VS: PATIENT WEIGHT: Weight (lb): Weight (oz): Weight (kg): 98.813773 Physical Exam HEENT: normocephalic w/o injury Cardiac: regular rate and rhythm Lungs: clear to auscultation Breasts: deferred Neuro: Exam: alert, oriented x3, normal speech Abdomen: gravid, soft, no abnormal tenderness, no guarding, no rebound tenderness Musculoskeletal: normal inspection [...] % (Auto) (14.5 - 29.7 %) 21.3 [place] % (Auto) (3.6 - 10.2 %) 10.3 H Eos % (Auto) (0.0 - 3.0 %) 0.6 Baso % (Auto) (0.1 - 0.9 %) 0.4 Neut # (Auto) (K/mm3) 6.3 Lymph # (Auto) (K/mm3) 2.0 [place] # (Auto) (K/mm3) 1.0 Eos # (Auto) (K/mm3) 0.06 Baso # (Auto) (K/mm3) 0.0 Diagnosis, Assessment Plan Diagnosis, Assessment Plan Assessment/Impression: PROM 37-38 weeks, 6 days, previous C/S, in labor Plan: at 1410 RPT #:[id number] [facility] 2021-05-[facility] 14:04:00 [facility] ([facility]) OB Admission / H P REPORT#:[id number] REPORT STATUS: Signed DATE:05/06/21 TIME: 1404 PATIENT: SHARYN RUSSELL UNIT #: [id number] ROOM/BED: [address] : 92 AGE: 30 SEX: F ATTEND: Abel Mcgovern MD ADM AUTHOR: Abel Mcgovern MD * ALL edits or amendments must be made on the electronic/computer document * See Addendum OB History Nursing Documentation Review Nursing data: The data set between the solid lines has been imported from nursing documentation. Any exceptions have been noted below under Provider comments. Current data Steroids prior to arrival: ROM date: ROM time: EDC date: 05/20/21 Gestational age (labor triage): Post hemorrhage risk score: Medium Risk for Hemorrhage. Prior history : 3 Para: 1 [...] She denies VB, ctx, MERIDA, scotomata, RUQP, EP history: : 3 Term: 1 Abortus: 1 Living children: 1 Previous : low uterine trans incis Current : Admission EGA (weeks) 38 Admission EGA (days) 0 Labs: Blood type: O Rh: positive Rubella: non-immune Hepatitis B: negative HIV: negative STD: negative Syphilis: currently negative GBS: negative Past History Past Medical History: Denies: Alcoholism/subst abuse, Anemia, Arthritis, Asthma, Atrial fibrillation, [...] disease, Periph arterial disease, Pressure ulcer, Prior NE, Schizophrenia, Sickle cell disease, Steroid use, Thyroid disorder, Transfusion history, Tuberculosis, Urinary tract infection, Venous thromboembolism. Past Surgical History: Reports: . Denies: Abdominal surgery, Appendectomy, Bariatric procedure, CABG, Carotid endarterectomy, Cholecystectomy, Dialysis shunt/AV fistula, Heart valve procedure, Hernia repair, Hysterectomy, Pacemaker, Spine surgery, Splenectomy, Tonsillectomy, Transplant recipient, Vascular procedure, = , Amputation, Anesthesia complications, Bilateral tubal ligation, Bladder surgery, Breast biopsy/procedure, Carpal tunnel release, Cranial procedure, D C, Eye surgery, Feeding tube, Hip procedure, ICD, Indwelling IV catheter, Knee procedure, Lithotripsy, Lung surgery, Nephrectomy, PCI, Prostate surgery, Thyroidectomy, Tracheotomy, COMMERCIAL ROOFING ESTIMATOR shunt. Alcohol Use Denies EtOH use Drug Use Denies recreational drugs Smoking status: Smoking status for patients 13 years old or older: Never Smoker Medications: Home Medications: FERROUS SULFATE (FEOSOL) 325 MG PO DAILY PNV WITH FE FUMARATE/FA () 1 TAB PO DAILY Allergies: Coded Allergies: amoxicillin (From AUGMENTIN) (Intermediate, RASH 04/01/21) clavulanic acid (From AUGMENTIN) (Intermediate, RASH 04/01/21) Review of Systems Constitutional: Denies: chills, fatigue, fever. Respiratory: Denies: JEAN (dyspnea on exertion), hemoptysis, non productive cough. Cardiovascular: Denies: chest pain, JEAN (dyspnea on exertion), edema. GI: Reports: constipation. Denies: diarrhea, nausea, vomiting. : Reports: pelvic pain, . Denies: vaginal bleeding. Objective General VS: PATIENT WEIGHT: Weight (lb): Weight (oz): Weight (kg): 98.474213 Physical Exam HEENT: normocephalic w/o injury Cardiac: regular rate and rhythm Lungs: clear to auscultation Breasts: deferred Neuro: Exam: alert, oriented x3, normal speech Abdomen: gravid, soft, no abnormal tenderness, no guarding, no rebound tenderness Musculoskeletal: normal inspection [...] % (Auto) (14.5 - 29.7 %) 21.3 [place] % (Auto) (3.6 - 10.2 %) 10.3 H Eos % (Auto) (0.0 - 3.0 %) 0.6 Baso % (Auto) (0.1 - 0.9 %) 0.4 Neut # (Auto) (K/mm3) 6.3 Lymph # (Auto) (K/mm3) 2.0 [place] # (Auto) (K/mm3) 1.0 Eos # (Auto) (K/mm3) 0.06 Baso # (Auto) (K/mm3) 0.0 Diagnosis, Assessment Plan Diagnosis, Assessment Plan Assessment/Impression: PROM 37-38 weeks, 6 days, previous C/S, in labor Plan: at 1410 Addendum 1: 05/08/21 1544 by Abel Mcgovern MD actually pt is 38 weeks at 1544 RPT #:[id number] END OF REPORT [facility] 2021-04-20 20:40:00 [facility] ([facility]) [facility] Evaluation Note REPORT#:[id number] REPORT STATUS: Signed DATE:04/20/21 TIME: 2039 PATIENT: SHARYN RUSSELL UNIT #: [id number] ROOM/BED: : 92 AGE: 30 SEX: F ATTEND: Abel Mcgovern MD ADM DT: AUTHOR: Abel Mcgovern MD * ALL edits or amendments must be made on the electronic/computer document * ZENAIDA History Nursing Documentation Review Nursing data: The data set between the solid lines has been imported from nursing documentation. Any exceptions have been noted below under Provider comments. Current data Steroids prior to arrival: ROM date: ROM time: EDC date: 05/20/21 Gestational age (labor triage): Post hemorrhage risk score: Medium Risk for Hemorrhage. Prior history : 3 Para: 1 [...] Ringer's 1,000 ML BOLUS ONCE 04/20 161 DCD 04/20 (LACTATED RINGERS) IV 04/20 2200 1701 Gastrointestinal Drugs Sig/Aracelis Start time Last Medication Dose Route Stop Time Status Admin Ondansetron HCl 4 MG ONCE ONE 04/20 1915 DC 04/20 (ZOFRAN 2 MG/ML 4 MG IV 04/20 191 1929 SYR) Loperamide HCl 2 MG Q8H PRN PRN 04/20 161 DCD 04/20 (LOPERAMIDE HCL 2 MG PO 06/19 161 1706 CAP) Ondansetron HCl 4 MG Q6H PRN PRN 04/20 1615 DCD 04/20 (ZOFRAN 2 MG/ML 4 MG IV 06/19 161 1701 SYR) Allergies Coded Allergies: amoxicillin (From AUGMENTIN) (Intermediate, RASH 04/01/21) clavulanic acid (From AUGMENTIN) (Intermediate, RASH 04/01/21) Review of Systems Constitutional: Denies: chills, fatigue, fever. Respiratory: Denies: JEAN (dyspnea on exertion), hemoptysis, non productive cough. Cardiovascular: Denies: chest pain, JEAN (dyspnea on exertion), edema. GI: Reports: diarrhea, nausea, vomiting. : Reports: pelvic pain, . Denies: vaginal bleeding. Objective General VS: PATIENT WEIGHT: Weight (lb): 217 Weight (oz): Weight (kg): 97.976 Physical Exam HEENT: normocephalic w/o injury Cardiac: regular rate and rhythm Lungs: clear to auscultation Breasts: deferred Neuro: Exam: alert, oriented x3, normal speech Abdomen: gravid, soft, no abnormal tenderness, no guarding, no rebound tenderness Musculoskeletal: normal inspection [...] (Auto) (14.5 - 29.7 %) 5.1 L [place] % (Auto) (3.6 - 10.2 %) 5.6 Eos % (Auto) (0.0 - 3.0 %) 0.3 Baso % (Auto) (0.1 - 0.9 %) 0.4 Neut # (Auto) (K/mm3) 9.6 Lymph # (Auto) (K/mm3) 0.6 [place] # (Auto) (K/mm3) 0.6 Eos # (Auto) (K/mm3) 0.03 Baso # (Auto) (K/mm3) 0.0 Urines Urine Color (YELLOW) YELLOW Urine Appearance (CLEAR) Slightly-Cloudy Urine pH (5 - 9) 5.0 Ur Specific Grubbs (1.001 - 1.035) 1.026 Urine Protein (NEG) [...] Diagnosis, Assessment Plan Assessment/Impression: Food poisoning causing vomiting diarrhea Plan: discharge home at 2046 [facility] #:[id number] END OF REPORT [facility] 2021-04-01 17:34:00 [facility] ([facility]) [facility] Evaluation Note REPORT#:[id number] REPORT STATUS: Signed DATE:04/01/21 TIME: 1734 PATIENT: SHARYN RUSSELL UNIT #: [id number] ROOM/BED: : 92 AGE: 30 SEX: F ATTEND: Abel Mcgovern MD ADM AUTHOR: Abel Mcgovern MD * ALL edits or amendments must be made on the electronic/computer document * [facility]ENA[facility] History Nursing Documentation Review Nursing data: The data set between the solid lines has been imported from nursing documentation. Any exceptions have been noted below under Provider comments. Current data Steroids prior [...] She denies ctx, VB, MERIDA, scotomata, RUQP, EP history: : 3 Term: 1 Abortus: 1 Living children: 1 Previous : low uterine trans incis Current : EDC: 05/20/21 EGA (weeks/days): 33 weeks Labs: Blood type: O Rh: positive Rubella: non-immune Hepatitis B: negative HIV: negative RPR: non-reactive STD: negative GBS: unknown Past medical history: denies PMH Past surgical history: Social history: employed, , no alcohol use, no [...] Constitutional: Denies: chills, fatigue, fever. Respiratory: Denies: JEAN (dyspnea on exertion), hemoptysis, non productive cough. Cardiovascular: Denies: chest pain, JEAN (dyspnea on exertion), edema. GI: Reports: constipation. Denies: diarrhea, nausea, vomiting. : Reports: . Denies: pelvic pain, vaginal bleeding. Objective General VS: PATIENT WEIGHT: Weight (lb): Weight (oz): Weight (kg): 98.979450 Physical Exam HEENT: normocephalic w/o injury Cardiac: regular rate and rhythm Lungs: clear to auscultation Breasts: deferred Neuro: Exam: alert, oriented x3, normal speech Abdomen: gravid, soft, no abnormal tenderness, no guarding, no rebound tenderness Musculoskeletal: normal inspection Genitourinary: no bladder distention Uterine activity: Monitor: toco Frequency (description): none FHR evaluation: Baseline: 135 bpm Variability: marked > 25 bpm Accelerations: 15 X 15 Decelerations: none FHR category: category 1 Membranes: Membranes: Intact Lower extremities: Edema: none Results Findings/Data: amniosure negative Diagnosis, Assessment Plan Diagnosis, Assessment Plan Assessment/Impression: symptoms of PROM but no evidence on ROM on exam Plan: discharge home at 1740 [facility] #:[id number] END OF REPORT [facility] 2019-11-09 08:57:00 [id number] [facility] [address] [address] PATIENT NAME: SHARYN RUSSELL ADMIT DATE: 11/05/19 ACCOUNT NO: [id number] ROOM NO: .1997 AGE: 29 SEX: F ADMITTING PHYSICIAN: Mario Ferrer III, MD ATTENDING PHYSICIAN: Mario Ferrer III, MD ADMISSION DATE: 11/05/2019 DISCHARGE DATE: 11/09/2019 ADMITTING DIAGNOSES: Postdates intrauterine for induction of labor. HISTORY: The patient is a 29-year-old 2, para 0, EDC was 10/30/2019, presented late on the for elective induction of labor for postdates . The patient has had no particular issues during the except for several visits to rule out rupture of membranes in early labor and will be admitted for postdates induction. The recent ultrasound revealed infant in the 36 to 40 percentile vertex presentation and normal amniotic fluid. CURRENT MEDICATIONS: vitamin and iron. PAST MEDICAL HISTORY: She has had an ACL repair, gastric sleeve, and tonsil and adenoidectomy. LABORATORY DATA: Her blood type is O positive, GBS negative, rubella immune, GC and chlamydia negative, HIV negative, one-hour glucose 89, VDRL nonreactive. HOSPITAL COURSE: The patient underwent Cytotec induction of labor. She had spontaneous rupture of membranes approximately 0400 on the . Pitocin was begun. Several hours later, Pitocin augmentation with IUPC and scalp clip was performed with slight change in the cervix after approximately 13 hours of Pitocin with rupture of membranes. The cervix had not dilated past 3 cm with a -2, -3 station, vertex and caput formation. A primary low transverse section was performed, which revealed an OP presentation and definite asynclitic. The patient did well postoperatively, advanced to regular diet, discharged on postop day #3 in good condition. Preop hemoglobin was 10.1. Postop hemoglobin was 10.1. FINAL DIAGNOSES: Postdates intrauterine , relative cephalopelvic disproportion, OP asynclitic presentation. PROCEDURE: Primary low transverse section. DISPOSITION AND PROGNOSIS: The patient dismissed in good condition, regular diet, nonstrenuous activity. Continue vitamin with iron. She was dismissed on nonsteroidal anti-inflammatory agents for pain. Call the office for followup appointment in 2 to 6 weeks. Discharge instructions given on fever, wound infections, and bladder infections. Dictated By: Mario Ferrer III, MD PATIENT NAME: SHARYN RUSSELL WT: DS:ESTEFANY/JOSE R/ERVIN Conf#: [id number]/DID#: [id number] Authenticated by Mario Ferrer MD On 11/11/2019 01:00:32 PM at 1300 PATIENT NAME: SHARYN RUSSELL [facility] 2019-11-09 08:49:00 [facility] ([facility]) OB Postpart Progr Note REPORT#:[id number] REPORT STATUS: Signed DATE:11/09/19 TIME: 0849 PATIENT: SHARYN RUSSELL UNIT #: [id number] ROOM/BED: : 92 AGE: 29 SEX: F ATTEND: Mario Ferrer III, MD ADM AUTHOR: Mario Ferrer III, MD * ALL edits or amendments must be made on the electronic/computer document * Subjective Subjective Admission EGA (wks/days): 41 weeks EGA at delivery (wks/days): 41 weeks Status/day: post , post operative Patient reports: Patient reports: Yes: normal lochia, pain management effective, tolerating po well, voiding well, voiding without pain, tolerating ambulation, flatus. No: complaints. Objective Nursing Documentation Review [...] discussed with: patient, spouse/partner at 0849 RPT #:[id number] END OF REPORT [facility] 2019-11-08 08:45:00 [facility] ([facility]) OB Postpart Progr Note REPORT#:[id number] REPORT STATUS: Signed DATE:11/08/19 TIME: 0845 PATIENT: SHARYN RUSSELL UNIT #: [id number] ROOM/BED: [address] : 92 AGE: 29 SEX: F ATTEND: Mario Ferrer III, MD ADM AUTHOR: Mario Ferrer III, MD * ALL edits or amendments must be made on the electronic/computer document * Subjective Subjective Admission EGA (wks/days): 41 weeks EGA at delivery (wks/days): 41 weeks Status/day: post , post operative Patient reports: Patient reports: Yes: normal lochia, pain management effective, tolerating po well, voiding well, voiding without pain, tolerating ambulation. No: complaints, flatus, bowel movement, nausea, vomiting, excessive bleeding, abdominal pain, perineal pain, difficulty nursing, headache, blurred vision. Objective Nursing Documentation Review Nursing data: The [...] anemia r/t: (Fedef) Plan: routine care, discharge tomorrow Plan discussed with: patient, spouse/partner Comments: Yesterday this patient's chart had not been assigned to me. at 0848 RPT #:[id number] END OF REPORT [facility] 2019-11-06 21:32:00 [id number] [facility] [place] [address] PATIENT NAME: SHARYN RUSSELL ADMIT DATE: 11/05/19 ACCOUNT NO: [id number] ROOM NO: F.1999 AGE: 29 SEX: F ADMITTING PHYSICIAN: Mario Ferrer III, MD ATTENDING PHYSICIAN: Mario Ferrer III, MD OPERATION DATE: 11/06/2019 PREOPERATIVE DIAGNOSES: 1. Postdates intrauterine . 2. Failure to progress. POSTOPERATIVE DIAGNOSIS: Cephalopelvic disproportion, occipital posterior, asynclitic. PROCEDURE: Primary low transverse section. SURGEON: Mario Ferrer III, MD HAND TUFTER: Jama Amaya SA ANESTHESIA: Epidural. PROCEDURE IN DETAIL: The patient was taken to the operating room, prepped in the usual sterile manner for a vaginal abdominal procedure. Pfannenstiel incision was made with a skin knife and carried down to the fascia with a deep knife. Fascia excised in the midline and extended laterally with Rodriguez scissors. Rectus muscles were taken off rectus fascia with blunt and sharp dissection. Peritoneum entered bluntly with surgeon's fingertips and extended superiorly and inferiorly. [...] all clots and blood. Both tubes and ovaries normal. Uterus was very boggy, did not respond to Pitocin, Methergine was given. Hysterotomy incision closed with #1 Monocryl starting in each angle with 2 [id number] for excellent hemostasis. Uterus firmed up nicely after Methergine was given and bimanual massage. Uterus was returned to the abdominal cavity. Gutters wiped free of all clots and blood, small amount of irrigation. Peritoneum closed with 2-0 Monocryl, fascia closed with 0 PDS. Subcutaneous was closed with Vicryl, and the skin was closed with darnell. Estimated blood loss was 650 mL. The patient tolerated the procedure well and went to the recovery room in good condition. Dictated By: Mario Ferrer III, MD WT: OP:ESTEFANY/JOSE R/ERVIN PATIENT NAME: SHARYN RUSSELL Conf#: [id number]/DID#: [id number] Authenticated by Mario Ferrer MD On 11/09/2019 08:51:31 AM at 0851 PATIENT NAME: RUSSELLSHARYN [facility] 2019-11-06 19:46:00 [facility]) OB Intrapart Prog Note REPORT#:[id number] REPORT STATUS: Signed DATE:11/06/19 TIME: 1945 PATIENT: SHARYN RUSSELL UNIT #: [id number] ROOM/BED: 008-A : 92 AGE: 29 SEX: F ATTEND: Mario Ferrer III, MD ADM AUTHOR: Mario Ferrer III, MD * ALL edits or amendments must be made on the electronic/computer document * Subjective Subjective Admission EGA (wks/days): 41 weeks Patient reports: Patient reports: Yes leaking fluid, Yes comfortable with epidural, No complaints, No abdominal pain, No vaginal bleeding, No contractions, No normal movement, No decreased movement, No no movement, No headache, No blurred vision, No scotomata, No fever, No chills, No shortness of breath, No new complaints Objective Nursing Documentation Review Nursing data: The data set between the solid lines has been imported from nursing documentation. Any exceptions have been noted below under Provider comments. __ ROM date: 11/06/19 [...] No Diagnosis, Assessment Plan Assessment: normal FHR pattern, normal progress of labor, slow progress of labor Plan: stop oxytocin, delivery Plan discussed with: patient, spouse/partner at 1948 RPT #:[id number] END OF REPORT [facility] 2019-11-06 18:53:00 [facility] OB Intrapart Prog Note REPORT#:[id number] REPORT STATUS: Signed DATE:11/06/19 TIME: 1852 PATIENT: SHARYN RUSSELL UNIT #: [id number] ROOM/BED: [address] : 92 AGE: 29 SEX: F ATTEND: Mario Ferrer III, MD ADM AUTHOR: Mario Ferrer III, MD * ALL edits or amendments must be made on the electronic/computer document * Subjective Subjective Admission EGA (wks/days): [...] have been noted below under Provider comments. __ ROM date: 11/06/19 [...] Assessment: normal FHR pattern, normal progress of labor, slow progress of labor Plan: continue labor induction, stop oxytocin, d/c pit till adequate epidural level returns Additional notes: If no cx change in 2-3 hours, will proceed to C/S at 1855 RPT #:[id number] END OF REPORT [facility] 2019-11-06 15:26:00 [facility] OB Intrapart Prog Note REPORT#:[id number] REPORT STATUS: Signed DATE:11/06/19 TIME: 152 PATIENT: SHARYN RUSSELL UNIT #: [id number] ROOM/BED: [address] : 92 AGE: 29 SEX: F ATTEND: Mario Ferrer III, MD ADM AUTHOR: Mario Ferrer III, MD * ALL edits or amendments must be made on the electronic/computer document * Subjective Subjective Admission EGA (wks/days): 41 weeks Patient reports: Patient reports: Yes complaints, Yes abdominal pain, Yes contractions, Yes normal movement, Yes new complaints (labor pain), No vaginal bleeding, No leaking fluid , No decreased movement, No no movement, No headache, No blurred vision, No scotomata, No fever, No chills, No shortness of breath, No comfortable with epidural, No coping well w/o pain meds Comments: I believe the patient startex to hyperventilate as ctx pain returned Objective Nursing Documentation Review Nursing data: The data set between the solid lines has been imported from nursing documentation. Any exceptions have been noted below under Provider comments. __ ROM date: 11/06/19 [...] labor Plan: anticipate vag delivery, stop oxytocin, d/c pit till adequate epidural level returns Plan discussed with: patient, spouse/partner, parent at 1529 RPT #:[id number] END OF REPORT [facility] 2019-11-06 11:58:00 [facility] OB Intrapart Prog Note REPORT#:[id number] REPORT STATUS: Signed DATE:11/06/19 TIME: 1158 PATIENT: SHARYN RUSSELL UNIT #: [id number] ROOM/BED: [address] : 92 AGE: 29 SEX: F ATTEND: Mario Ferrer III, MD ADM AUTHOR: Mario Ferrer III, MD * ALL edits or amendments must be made on the electronic/computer document * Subjective Subjective Admission EGA (wks/days): [...] have been noted below under Provider comments. __ ROM date: 11/06/19 [...] managmnt, continue labor induction at 1159 RPT #:[id number] END OF REPORT [facility] 2019-11-06 09:58:00 [id number] [facility] [place] [address] PATIENT NAME: SHARYN RUSSELL ADMIT DATE: 11/05/19 ACCOUNT NO: [id number] ROOM NO: [facility] AGE: 29 SEX: F ADMITTING PHYSICIAN: Mario Ferrer III, MD ATTENDING PHYSICIAN: Mario Ferrer III, MD ADMISSION DATE: 11/05/2019 ADMITTING DIAGNOSES: Postdates intrauterine , induction of labor. HISTORY OF PRESENT ILLNESS: The patient is a 28-year-old 2, para 0, ectopic x1, EDC was 10/30/2019 presents for postdates induction with Cytotec. The patient has had an uneventful except for a couple false alarms with rupture of membranes and decreased movement. Last ultrasound done at [facility] showed a 36th percentile infant with a fluid index of 16. The patient now presents for elective induction. LABORATORY DATA: Blood type O positive. GBS negative. Chlamydia, GC negative. HIV negative. One-hour glucose 89. Maternal serum alpha fetoprotein was within normal limits. She [...] 20-pound weight gain. GENERAL: Well-developed, well-nourished female in no apparent distress. Remainder of physical exam within normal limits. ABDOMEN: Gravid. Estimated weight 7 to 7-1/2 pounds. PELVIS: Cervical exam was after epidural was 1 cm, 50% effaced, -3 station, vertex status post spontaneous rupture of membranes. IMPRESSION: Postdates intrauterine , induction of labor, vertex presentation. PLAN: Pitocin augmentation after Cytotec and epidural. Dictated By: Mario Ferrer III, MD WT: HP:FLIZBETH/JOSE R/ERVIN PATIENT NAME: SHARYN RUSSELL Conf#: [id number]/DID#: [id number] Authenticated by Mario Ferrer MD On 11/06/2019 06:58:09 PM at 1858 PATIENT NAME: SHARYN RUSSELL [facility] 2019-11-06 07:52:00 [facility] ([facility]) OB Intrapart Prog Note REPORT#:[id number] REPORT STATUS: Signed DATE:11/06/19 TIME: 0752 PATIENT: SHARYN RUSSELL UNIT #: [id number] ROOM/BED: [address] : 92 AGE: 29 SEX: F ATTEND: Mario Ferrer III, MD ADM AUTHOR: Mario Ferrer III, MD * ALL edits or amendments must be made on the electronic/computer document * Subjective Subjective Admission EGA (wks/days): 41 weeks Patient reports: Patient reports: Yes leaking fluid, Yes contractions, Yes normal movement, Yes comfortable with epidural, No complaints, No abdominal pain, No vaginal bleeding , No decreased movement, No no movement, No headache, No blurred vision, No scotomata, No fever, No chills, No shortness of breath, No coping well w/o pain meds, No new complaints Objective Nursing Documentation Review Nursing data: The data set between the solid lines has been imported from nursing documentation. Any exceptions have been noted below under Provider comments. __ ROM date: 11/06/19 ROM time: 409 __ Provider comments on imported nursing data: [] Objective Cervical/ exam: Dilatation (cm): 1 Effacement (%): 50 station: - 3 presentation: cephalic Est. wt (lbs) 7 Est. wt (oz) 5 Pelvis exam: Clinically adequate for this fetus: marginal with high vertex presentation Uterine activity: Monitor: toco [...] Plan discussed with: patient at 0758 RPT #:[id number] END OF REPORT [facility] 2019-11-06 05:36:00 [facility] ([facility] Clinical Note REPORT#:[id number] REPORT STATUS: Signed DATE:11/06/19 TIME: 05 PATIENT: SHARYN RUSSELL UNIT #: [id number] ROOM/BED: [address] : 92 AGE: 29 SEX: F ATTEND: Mario Ferrer III, MD ADM AUTHOR: Brenda Pickard DO * ALL edits or amendments must be made on the electronic/computer document * Clinical Note Note: Germaine Scruggs Hospitalist on duty Request for bedside ultrasound for presentation I performed a limited bedside ultrasound with the following findings: cephalic presentation, visually low fluid volume, posterior placenta, movements observed at 0538 RPT #:[id number] END OF REPORT [facility]
[2025-05-29] MEDS ORDERED: MORPHINE 4 MG/ML SYR ONE (12:46)
[2025-05-29] MEDS ORDERED: ONDANSETRON 4 MG/2 ML VIAL ONE (12:46)
[2025-05-29] MEDS ORDERED: NA CHLORIDE 0.9% 1,000 ML ONE (12:46)
[2025-05-29] MEDS ORDERED: KETOROLAC 30 MG/ML INJ ONE (12:46)
[2025-05-29 13:06] LABS: Absolute Lymphocytes (CBC) 2.7 K/uL (0.7-4.9); Hematocrit 39.2 % (36.0-45.0); Hemoglobin 13.2 g/dL (12.0-15.0); MCH 31.7 pg (27.0-35.0); MCHC 33.7 g/dL (32.0-36.0); MCV 94.0 fL (80-100); MPV 8.6 fL (7.6-11.3); Nucleated RBC Absolute Count 0.0 (0-0); Nucleated Red Blood Cells % 0.0 % (0-0); RBC Red Blood Cell Count 4.17 M/uL (3.86-4.86); White Blood Count 7.90 thou/uL (4.3-10.9)
[2025-05-29 13:09] LABS: Sqamous Epithelial <5 /HPF (None Seen); Urine Culture Reflex Order NOT NEEDED; Urine Microscopic Reflex YN ORDER UMIC
[2025-05-29 13:27] LABS: ALT/SGPT 20 U/L (13-56); Albumin 3.7 g/dL (3.4-5.0); Albumin/Globulin Ratio 1.1 (1.1-1.8); Alkaline Phosphatase 50 U/L (45-117); Anion Gap 8.6 mEq/L (5.0-15.0); BUN Blood Urea Nitrogen 11 mg/dL (7-18); Globulin 3.4 g/dL (2.3-3.5); Glucose Level 117 mg/dL (74-106); Lipase 42 U/L (13-75); Potassium 3.6 mEq/L (3.5-5.1)
[2025-05-29 13:30] LABS: AST/SGOT < 10 U/L (15-37)
--- NOTE | 2025-05-29 13:32 | RAD REPORT ---
EXAMINATION: CT ABDOMEN AND PELVIS WITH CONTRAST CLINICAL INDICATION: RLQ pain, guarding TECHNIQUE: CT abdomen and pelvis was performed, after the administration of IV contrast, as per [facility] protocol. Axial, sagittal and coronal reconstructions were obtained. One or more of the following dose reduction techniques were used: Automated exposure control, adjustment of the mA and k V according to patient size, and iterative reconstruction. Unless otherwise specified, incidental findings do not require dedicated imaging follow-up. COMPARISON: 02/26/2024 FINDINGS: LOWER CHEST: The visualized lung bases are clear. Postsurgical changes about the stomach. LIVER: Normal in size and contour. No focal lesion. Mild layering high density material in the gallbl adder may be sludge. SPLEEN: Normal size. No focal lesion. PANCREAS: No mass, ductal dilation, or godfrey-pancreatic fluid. ADRENALS: Normal; no mass. KIDNEYS: Normal size and contour. No hydronephrosis. GASTROINTESTINAL TRACT: No evidence of free air, significant intra-abdominal free fluid, bowel obstru ction or abscess. APPENDIX: Normal appendix. LYMPH NODES: No lymphadenopathy. MUSCULOSKELETAL: Mild multilevel spinal degenerative changes. IMPRESSION: No acute or concerning abnormalities seen in the abdomen or pelvis.
[2025-05-29] MEDS ORDERED: DICYCLOMINE HCL 20 MG/2 ML AMP IM ONE (14:39)
[2025-05-29] MEDS ORDERED: MAGNES/ALUMIN/SIMET 30ML UCUP ONE (14:40)
[2025-05-29] MEDS ORDERED: LIDOCAINE VISCOUS 2% 10ML ORAL SOLN ONE (14:40)
--- NOTE | 2025-05-29 15:40 | ER ---
Nurse's Notes [facility] Name: Pamela Osman Age: 34 yrs Sex: Female : 1990 Arrival Date: 05/29/2025 Time: 11:58 Bed 12 Private MD: Diagnosis: Abdominal pain, Generalized Presentation: 05/29 12:06 Chief complaint: Patient states: RLQ PAIN SINCE Y/D, SEEN FOR SAME AT OTHER FACILITY. bp Coronavirus screen: At this time, the client does not indicate any symptoms associated with coronavirus-19. Ebola Screen: No symptoms or risks identified at this time. Initial Sepsis Screen: Does the patient meet any 2 criteria? No. Patient's initial sepsis screen is negative. Does the patient have a suspected source of infection? No. Patient's initial sepsis screen is negative. Risk Assessment: Do you want to hurt yourself or someone else? Patient reports no desire to harm self or others. Onset of symptoms is unknown. 12:06 Method Of Arrival: Ambulatory bp 12:06 Acuity: LAURIE 3 bp Historical: - Allergies: 12:07 No Known Allergies; bp - PSHx: 12:07 adenoids; section; gastric sleeve; R ACL repair; bp - Immunization history:: Adult Immunizations up to date. - Infectious Disease History:: Denies. - Social history:: Smoking status: Patient denies any tobacco usage or history of. Screenin:45 [facility] ED Fall Risk Assessment (Adult) History of falling in the last 3 months, ar8 including since admission No falls in past 3 months (0 pts) Confusion or Disorientation No (0 pts) Intoxicated or Sedated No (0 pts) Impaired Gait No (0 pts) Mobility Assist Device Used No (0 pt) Altered Elimination No (0 pt) Score/Fall Risk Level 0 - 2 = Low Risk. Abuse screen: Denies threats or abuse. Nutritional screening: No deficits noted. Tuberculosis screening: No symptoms or risk factors identified. Assessment: 12:45 General: Appears uncomfortable, Behavior is calm, cooperative. Pain: Complains of pain ar8 in right lower quadrant Pain radiates to right upper quadrant Pain currently is 8 out of 10 on a pain scale. Neuro: No deficits noted. Level of Consciousness is awake, alert, obeys commands, Oriented to person, place, time, situation. 12:45 Cardiovascular: No deficits noted. Respiratory: No deficits noted. Airway is patent ar8 Respiratory effort is even, unlabored, Respiratory pattern is regular, symmetrical. GI: Abdomen is non-distended, Last meal was May 29, 2025. at 12:00. Abd is soft X 4 quads Abdomen is tender to palpation in right upper quadrant and right lower quadrant Reports lower abdominal pain, upper abdominal pain, nausea, vomiting. 15:50 GI: Reports diarrhea, x2 episodes. ar8 17:10 GI: Reports diarrhea, x1. ar8 Vital Signs: 12:06 BP 111 / 90; Pulse 74; Resp 16; Temp 98; Pulse Ox 100% ; bp 13:11 BP 130 / 79; Pulse 80; Resp 18 S; Pulse Ox 99% on R/A; ar8 14:30 BP 120 / 68; Pulse 84; Resp 17; Pulse Ox 100% ; ar8 15:27 Pain 6/10; ar8 17:11 BP 112 / 75; Pulse 66; Resp 16 S; Temp 98.6(O); Pulse Ox 100% on R/A; Pain 7/10; ar8 15:27 Pain Scale: Adult ar8 17:11 Pain Scale: Adult ar8 ED Course: 12:01 Patient arrived in ED. gl 12:04 Keshav Miller MD is Attending Physician. jr11 12:07 Triage completed. bp 12:07 Arm band placed on. bp 12:44 Elpidio Almaraz, RN is Primary Nurse. ar8 12:45 Bed in low position. Call light in reach. Side rails up X2. Provided Education on: plan ar8 of care, diagnostics, and wait time. 12:45 No provider procedures requiring assistance completed. Inserted saline lock: 22 gauge ar8 in right antecubital area, using aseptic technique. Blood collected. Flushed with 10 mL NS. 13:03 UA Rfx Ambrosio Cult if indicated Sent. ar8 13:03 Test, Serum Sent. ar8 13:03 CBC with Diff Sent. ar8 13:03 CMP Sent. ar8 13:03 Lipase Sent. ar8 13:23 CT Abd/Pelvis - IV Contrast Only In Process Unspecified. EDMS 15:40 José Luis Valentin is Hospitalizing Provider. jr11 16:23 Nurse Practitioner and/or Physician Chain Maker Machine to see patient. ar8 17:34 Patient admitted, IV remains in place. ar8 Administered Medications: 12:52 Drug: Ondansetron IVP 4 mg IVP once; over 2 minutes Route: IVP; Site: right antecubital;ar8 13:20 Follow up: Response: No adverse reaction; Nausea is decreased ar8 12:52 Drug: NS 0.9% IV 1000 ml IV at 1 bolus Per protocol; to be given as a bolus over 60 ar8 minutes Route: IV; Rate: 1 bolus; Site: right antecubital; 14:50 Follow up: Response: No adverse reaction; IV Status: Completed infusion; IV Intake: ar8 1000ml 12:54 Drug: TORadol - Ketorolac IVP 15 mg IVP once Route: IVP; Site: right antecubital; ar8 13:20 Follow up: Response: No adverse reaction; Pain is decreased ar8 12:56 Drug: morphine IVP or IV 4 mg IVP once over 4 mins Route: IVP; Infused Over: 4 mins; ar8 Site: right antecubital; 13:20 Follow up: Response: No adverse reaction; Pain is decreased ar8 14:45 Drug: Dicyclomine IM 20 mg IM once Route: IM; Site: right ventrogluteal; ar8 15:27 Follow up: Response: No adverse reaction; Pain is decreased ar8 14:48 Drug: GI Cocktail with - (Maalox PO 30 ml, Lidocaine Mucous Membrane 2 % 20 ar8 ml, Phenobarbital-Belladonna PO 10 ml) PO once {Note: not given. Not in stock. .} Route: PO; 15:27 Follow up: Pain 6/10 Adult; Response: No adverse reaction; Pain is decreased ar8 15:50 Drug: Sucralfate PO 1 grams PO once Route: PO; ar8 17:11 Follow up: Response: No adverse reaction ar8 Medication: 12:45 VIS not applicable for this client. ar8 Intake: 14:50 IV: 1000ml; Total: 1000ml. ar8 Outcome: 15:40 Decision to Hospitalize by Provider. jr11 17:33 Admitted to Med/surg accompanied by tech, via wheelchair, room 406, Report called to ar8 faxed to charge nurse 17:33 Condition: stable 17:33 Discharge instructions given to educated on reason for admission 17:34 Patient left the ED. ar8 Signatures: Dispatcher [employer] Arnaldo Castro, RN RN bp Keshav Miller MD MD jr11 Kandis Mills, Elpidio Herrera RN RN ar8
--- NOTE | 2025-05-29 15:40 | EDPHYS ---
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 Of note, she was referred from primary care for this abdominal pain, went to an outside facility where she had a CT scan of her belly about 24 hours ago which was negative. Patient states that the pain is moderate to severe, no relief with any of the medications prescribed. Patient other than that normal bowel movements no urinary complaints. No fever. Review of systems negative otherwise. Historical: - Allergies: 12:07 No Known Allergies; bp - PSHx: 12:07 adenoids; section; gastric sleeve; R ACL repair; bp - Immunization history:: Adult Immunizations up to date. - Infectious Disease History:: Denies. - Social history:: Smoking status: Patient denies any tobacco usage or history of. Exam: 15:24 Constitutional: This is a well developed, well nourished patient who is awake, alert, jr11 and in no acute distress. Head/Face: Normocephalic, atraumatic. Eyes: Extra-ocular motions intact. Lids and lashes normal. Conjunctiva and sclera are non-icteric and not injected. Cornea within normal limits. Periorbital areas with no swelling, redness, or edema. ENT: Nares patent. No nasal discharge, no septal abnormalities noted. Oropharynx with no redness, swelling, or masses, exudates, or evidence of obstruction, uvula midline. Mucous membranes moist. Chest/axilla: Normal chest wall appearance and motion. Nontender with no deformity. No lesions are appreciated. Cardiovascular: Regular rate and rhythm with a normal S1 and S2. No gallops, murmurs, or rubs. Normal PMI, no JVD. No pulse deficits. Respiratory: Lungs have equal breath sounds bilaterally, clear to auscultation and percussion. No rales, rhonchi or wheezes noted. No increased work of breathing, no retractions or nasal flaring. Abdomen/GI: diffuse abd pain, no peritonitis, vol guarding Back: No spinal tenderness. No costovertebral tenderness. Full range of motion. MS/ Extremity: Pulses equal, no cyanosis. Neurovascular intact. Full, normal range of motion. Neuro: Awake and alert, GCS 15, oriented to person, place, time, and situation. No gross motor or sensory deficits. Vital Signs: 12:06 BP 111 / 90; Pulse 74; Resp 16; Temp 98; Pulse Ox 100% ; bp 13:11 BP 130 / 79; Pulse 80; Resp 18 S; Pulse Ox 99% on R/A; ar8 14:30 BP 120 / 68; Pulse 84; Resp 17; Pulse Ox 100% ; ar8 15:27 Pain 6/10; ar8 17:11 BP 112 / 75; Pulse 66; Resp 16 S; Temp 98.6(O); Pulse Ox 100% on R/A; Pain 7/10; ar8 15:27 Pain Scale: Adult ar8 17:11 Pain Scale: Adult ar8 MDM: 12:08 Medical Screening Exam initiated jr11 15:24 Differential diagnosis: appendicitis, cholecystitis, Cholelithiasis, gastritis, jr11 gastroesophageal reflux disease, GI Bleed, non-specific abd pain. Data reviewed: vital signs. ED course: CT to my read did not show any abnormality, spoke to Dr. Parsons who came and reassessed the patient, he would like for us to admit the patient to medicine for him to consult and follow this abdominal pain. 15:39 ED course: Dr Valentin accepted . [facility] 05/29 12:09 Order name: CBC with Diff; Complete Time: 13:37 [facility] 05/29 12:09 Order name: CMP; Complete Time: 13:37 [facility] 05/29 12:09 Order name: Lipase; Complete Time: 13:37 [facility] 05/29 12:09 Order name: Test, Serum [facility] 05/29 12:09 Order name: UA Rfx Ambrosio Cult if indicated; Complete Time: 13:37 [facility] 05/29 13:03 Order name: PREGU; Complete Time: 13:37 em1 05/29 16:41 Order name: CBC with Automated Diff EDMS 05/29 16:41 Order name: CBC with Automated Diff EDMS 05/29 16:41 Order name: CBC with Automated Diff EDMS 05/29 16:41 Order name: CBC with Automated Diff EDMS 05/29 16:41 Order name: CBC with Automated Diff EDMS 05/29 16:41 Order name: CBC with Automated Diff EDMS 05/29 16:41 Order name: Comprehensive Metabolic Panel EDMS 05/29 16:41 Order name: Comprehensive Metabolic Panel EDMS 05/29 16:41 Order name: Comprehensive Metabolic Panel EDMS 05/29 16:41 Order name: Comprehensive Metabolic Panel EDMS 05/29 16:41 Order name: Comprehensive Metabolic Panel EDMS 05/29 16:41 Order name: Comprehensive Metabolic Panel EDMS 05/29 16:41 Order name: Lipid Profile EDMS 05/29 16:41 Order name: Lipid Profile EDMS 05/29 16:41 Order name: Magnesium EDMS 05/29 16:41 Order name: Magnesium EDMS 05/29 16:41 Order name: Magnesium EDMS 05/29 16:41 Order name: Magnesium EDMS 05/29 16:41 Order name: Magnesium EDMS 05/29 16:41 Order name: Magnesium EDMS 05/29 16:41 Order name: Phosphorus EDMS 05/29 16:41 Order name: Phosphorus EDMS 05/29 16:41 Order name: Phosphorus EDMS 05/29 16:41 Order name: Phosphorus EDMS 05/29 16:41 Order name: Phosphorus EDMS 05/29 16:41 Order name: Phosphorus EDMS 05/29 16:41 Order name: T4 Free EDMS 05/29 16:41 Order name: T4 Free EDMS 05/29 16:41 Order name: Thyroid Stimulating Hormone EDMS 05/29 16:41 Order name: Thyroid Stimulating Hormone EDMS 05/29 16:41 Order name: Troponin High Sensitivity EDMS 05/29 16:41 Order name: Troponin High Sensitivity EDMS 05/29 16:41 Order name: Troponin High Sensitivity EDMS 05/29 16:41 Order name: Troponin High Sensitivity EDMS 05/29 12:09 Order name: CT Abd/Pelvis - IV Contrast Only; Complete Time: 13:37 jr11 05/29 16:41 Order name: CONS Physician Consult EDMS 05/29 12:09 Order name: IV Saline Lock; Complete Time: 12:44 jr11 05/29 12:09 Order name: Labs collected and sent; Complete Time: 13:07 jr11 Administered Medications: 12:52 Drug: Ondansetron IVP 4 mg IVP once; over 2 minutes Route: IVP; Site: right antecubital;ar8 13:20 Follow up: Response: No adverse reaction; Nausea is decreased ar8 12:52 Drug: NS 0.9% IV 1000 ml IV at 1 bolus Per protocol; to be given as a bolus over 60 ar8 minutes Route: IV; Rate: 1 bolus; Site: right antecubital; 14:50 Follow up: Response: No adverse reaction; IV Status: Completed infusion; IV Intake: ar8 1000ml 12:54 Drug: TORadol - Ketorolac IVP 15 mg IVP once Route: IVP; Site: right antecubital; ar8 13:20 Follow up: Response: No adverse reaction; Pain is decreased ar8 12:56 Drug: morphine IVP or IV 4 mg IVP once over 4 mins Route: IVP; Infused Over: 4 mins; ar8 Site: right antecubital; 13:20 Follow up: Response: No adverse reaction; Pain is decreased ar8 14:45 Drug: Dicyclomine IM 20 mg IM once Route: IM; Site: right ventrogluteal; ar8 15:27 Follow up: Response: No adverse reaction; Pain is decreased ar8 14:48 Drug: GI Cocktail with - (Maalox PO 30 ml, Lidocaine Mucous Membrane 2 % 20 ar8 ml, Phenobarbital-Belladonna PO 10 ml) PO once {Note: not given. Not in stock. .} Route: PO; 15:27 Follow up: Pain 6/10 Adult; Response: No adverse reaction; Pain is decreased ar8 15:50 Drug: Sucralfate PO 1 grams PO once Route: PO; ar8 17:11 Follow up: Response: No adverse reaction ar8 Disposition Summary: 05/29/25 15:40 Hospitalization Ordered Notes: Hospitalization Status: Observation [facility] Provider: José Luis Valentin jr Location: Telemetry/MedSurg (observation) [facility] Condition: Stable [facility] Problem: new jr Symptoms: are unchanged [facility] Bed/Room Type: Standard [facility] Room Assignment: 406(05/29/25 16:45) em1 Diagnosis - Abdominal pain, Generalized [facility] Forms: - Medication Reconciliation Form jr11 - SBAR form 11 - Leadership Thank You Letter jr11 Signatures: Dispatcher [employer] EDMS Issa Abdullahi em1 Arnaldo Vazquez, RN RN bp Keshav Miller MD MD jr11 Elpidio Almaraz RN RN ar8 Corrections: (The following items were deleted from the chart) 12:10 12:10 CBC+H.LAB.BRZ ordered. EDMS EDMS 12:10 12:10 COMPREHENSIVE METABOLIC PANEL+C.LAB.BRZ ordered. EDMS EDMS 12:10 12:10 LIPASE+C.LAB.BRZ ordered. EDMS EDMS 12:10 12:10 TEST, SERUM+SC.LAB.BRZ ordered. EDMS EDMS 12:10 12:10 UA Rfx Ambrosio Cult if indicated+U.LAB.BRZ ordered. EDMS EDMS 12:10 12:10 Abdomen Pelvis W Con+CT.RAD.BRZ ordered. EDMS EDMS 16:45 15:40 jr11 em1
[2025-05-29] MEDS ORDERED: SUCRALFATE 1 GM TABLET ONE (15:43)
[2025-05-29] MEDS ORDERED: SODIUM CHLORIDE 0.9% 10ML INJ IV PRN (16:40)
--- NOTE | 2025-05-29 16:43 | P.HP ---
Certification for Inpatient Patient admitted to: Inpatient With expected LOS: >2 Midnights Patient will require the following post-hospital care: None Practitioner: I am a practitioner with admitting privileges, knowledge of patient current condition, hospital course, and medical plan of care. Services: Services provided to patient in accordance with Admission requirements found in Title 42 Section 412.3 of the Code of Federal Regulations Patient History Date of Service: 05/29/25 Reason for admission: intractable abdominal pain History of Present Illness: Pamela Osman is a 34 year old female with pmhx of gastric sleeve who presents to the ED from Dr. Parsons's office with intractable abdominal pain located to right groin radiating to RUQ and across the lower abdomen. She reports having a normal bowel movement on prior to the abdominal pain beginning. She reports going to Dr. Leigh office where she was referred to see Dr. Parsons. She reports using Mounjaro in April. CT abd/pelvis is unremarkable. Pamela will be admitted to hospitalist service for further evaluation of intractable abdominal pain. Dr. Parsons consulted. Allergies No Known Allergies Allergy (Unverified 05/29/25 16:54) Home Medications: NK [No Home Meds] 05/29/25 - Past Medical/Surgical History Past Medical History: Patient denies medical history -: Gastric sleeve -: Adenoidectomy -: R ACL repair -: - Family History Father -: Hypertension, Diabetes Mother -: Hypertension - Social History Smoking Status: Never smoker Alcohol use: No CD- Drugs: No Review of Systems Other: Per HPI Physical Examination - Physical Exam General: Alert, In no apparent distress, Oriented x3 HEENT: Atraumatic, Normocephalic Neck: Supple, 2+ carotid pulse no bruit Respiratory: Clear to auscultation bilaterally, Normal air movement Cardiovascular: Normal pulses, Regular rate/rhythm Gastrointestinal: Tenderness (severe) Musculoskeletal: No clubbing Integumentary: No rashes Neurological: Normal speech, Normal tone - Studies Laboratory Data (last 24 hrs) 05/29/25 05/29/25 12:42 12:42 WBC 7.90 Hgb 13.2 Hct 39.2 Plt Count 284 Sodium 140 Potassium 3.6 BUN 11 Creatinine 0.86 Glucose 117 H Total Bilirubin 0.3 AST < 10 L ALT 20 Alkaline Phosphatase 50 Lipase 42 Assessment and Plan - Plan Assessment and Plan Intractable abdominal pain History of gastric sleeve -Recently restarted monjauro -protonix, carafate -IVF -pain medications -NPO except ice chips and PO meds -Dr. Parsons consulted, will evaluate for diagnostic laparoscopy DVT PPx SCDs Full code LOS 24-hour OBS Discharge Plan: Home Plan to discharge in: 24 Hours - Advance Directives Does patient have a Living Will: No Does patient have a Durable POA for Healthcare: No Time Spent Managing Pts Care (In Minutes): 55
[2025-05-29] MEDS: NA CHLORIDE 0.9% 1,000 ML IV SCH (17:40)
[2025-05-29 17:44] VITALS: BMI 34.2
[2025-05-29] MEDS: MORPHINE 2 MG/ML SYR IV PRN (18:30)
[2025-05-29] MEDS: PANTOPRAZOLE 40 MG INJ IVP SCH (20:35)
[2025-05-29] MEDS: SUCRALFATE 1 GM TABLET PO SCH (20:35)
[2025-05-29] MEDS: ONDANSETRON 4 MG/2 ML VIAL IV PRN (21:15)
--- NOTE | 2025-05-29 21:58 | CON ---
Date of Consultation: 05/29/2025 Diagnosis: Intractable abdominal pain. History Of Present Illness: This is the case of a female, who comes to us with 3 days history of abd ominal pain. She states she was doing great. At 9 o'clock 3 days ago, developed abdominal pain. Sherrill bone tried to be okay by herself, did not improve. Today, went to the primary doctor early this morning , diagnosed with acute abdominal pain, was intractable. Sent to my office from the primary doctor's office for evaluation and I agree with them. There is generalized tenderness in the abdomen. I coul d not find out exactly the reason for that. I also learned that yesterday she went [facility] and had the same pain. CAT scan only found umbilical hernia, which should be not related based on her pain and o varian cyst that she has not related neither. She went home, but she did not get better, so today sherrill bone is back in ER. She is on Mounjaro. She denies any dysuria, hematuria, hematochezia, melena. Henrik es any recent traveling out of the country. Denies any family member sick at home. Denies eating an ything out of usual. Review of Systems: 10 points are otherwise unremarkable. Physical Examination: Vital Signs: Reviewed. The patient is awake, alert. HEENT: Pupils are equal and reactive. Anicteric. Neck: Supple. Chest: Clear. Abdomen: Generalized tenderness, has some guarding. No rebound. It is just in ascending, transvers e, descending colon area and also in the middle. The etiology of that is unknown. Does not have any redness or any incarceration. The hernia in the umbilical area is reducible. There is no specific pain in that area neither. Rectal, Breasts, and Pelvic: Deferred. Extremities: Good capillary refill. Laboratory Data: Blood work shows WBC count of 7 with platelets of 284. Sodium is 140, glucose 117. The CAT scan of the abdomen and pelvis, I saw the report from the [facility] yesterday and also I saw the report today, that shows to be appendix is unremarkable. I do not see the cyst mentioned yesterday on the CAT scan by [facility], a 3 cm cyst. We will have some clarification on that. Assessment/plan: A 34-year-old patient with abdominal pain, generalized, etiology of that is unknown . Not sure if it is food related, allergy related. I do not see any surgical pathology at this mome nt, although with observation we are going to see how she develops in the next 24 hours. She also webster s a chance for diagnostic lap, although I explained to her the benefits, alternatives, and risks of t hat before she makes a decision of that nature. She may have to discuss with also her primary doctor as an outpatient the pros and cons of [place]. BINA/CARLOZ Voice ID: [id number] Report ID: [id number]
[2025-05-30 06:00] LABS: Absolute Lymphocytes (CBC) 1.8 K/uL (0.7-4.9); Hematocrit 32.7 % (36.0-45.0); Hemoglobin 11.7 g/dL (12.0-15.0); MCH 33.1 pg (27.0-35.0); MCHC 35.6 g/dL (32.0-36.0); MCV 93.0 fL (80-100); MPV 8.2 fL (7.6-11.3); Nucleated RBC Absolute Count 0.0 (0-0); Nucleated Red Blood Cells % 0.0 % (0-0); RBC Red Blood Cell Count 3.52 M/uL (3.86-4.86); White Blood Count 6.50 thou/uL (4.3-10.9)
[2025-05-30 06:23] LABS: C.diff Antigen/Toxin Ag neg : Tox neg (NEG : NEG); CDIFF INTERNAL NEG CONTROL White Background (WHITE BKGD); STOOL CONSISTENCY Formed/Solid (soft)
[2025-05-30 06:28] LABS: ALT/SGPT 16 U/L (13-56); Albumin 2.9 g/dL (3.4-5.0); Albumin/Globulin Ratio 1.1 (1.1-1.8); Alkaline Phosphatase 38 U/L (45-117); Anion Gap 7.4 mEq/L (5.0-15.0); BUN Blood Urea Nitrogen 10 mg/dL (7-18); Globulin 2.6 g/dL (2.3-3.5); Glucose Level 93 mg/dL (74-106); HDL Cholesterol 43 mg/dL (40-60); LDL Cholesterol, Calculated 76 mg/dL (<130); LDL Cholesterol,Calc NonReport 76; Magnesium 1.9 mg/dL (1.6-2.4); Potassium 4.4 mEq/L (3.5-5.1); Thyroid Stimulating Hormone 1.170 uIU/mL (0.358-3.740)
[2025-05-30 06:29] LABS: AST/SGOT < 10 U/L (15-37)
[2025-05-30] MEDS: CEFTRIAXONE 1,000 MG in NA CHLORIDE 0.9% 50 ML IVPB SCH (12:04)
--- NOTE | 2025-05-30 16:13 | P.PN ---
Subjective Date of Service: 05/30/25 Chief Complaint: intractable abdominal pain, enteritis, nausea, Subjective: Improving Review of Systems Respiratory: Unremarkable Gastrointestinal: Nausea, Abdominal Pain, Distention, As per HPI Genitourinary: Unremarkable Physical Examination - Vital Signs Temperature: 98.6 F Blood Pressure: 129/71 Pulse: 77 Respirations: 18 Pulse Ox (%): 100 - Physical Exam General: Alert, In no apparent distress, Oriented x3, Cooperative HEENT: PERRLA, EOMI Neck: Supple Respiratory: Normal air movement Cardiovascular: Normal pulses Gastrointestinal: No rebound, No guarding, Tenderness (today pain over epigastric area and RUQ) Assessment And Plan - Plan full liquid if no improvemt in 24-8 h a diagnistic lap its an option
[2025-05-30] MEDS: METRONIDAZOLE 500mg IVPB 500 MG/100 ML BAG IV SCH (16:26)
--- NOTE | 2025-05-30 16:32 | RAD REPORT ---
EXAMINATION: US Pelvis Complete CLINICAL INDICATION: Female 34 years old. Right lower quadrant pain h/o ovarian cyst TECHNIQUE: Real-time ultrasonography of the pelvis was performed transabdominally. Color and spectral Doppler evaluation of the ovaries was performed. COMPARISON: No prior exam. FINDINGS: UTERUS AND CERVIX: The uterus measures 10.4 cm in length. The uterus is normal. No masses seen The en dometrium is normal, 0.6 cm in thickness. RIGHT OVARY: Normal The right ovary measures 3.0x1.9x2.1 cm. Normal color and spectral Doppler evaluation of the right ovary.. LEFT OVARY: Normal The left ovary measures 4.2x2.3x3.8 cm. Normal color and spectral Doppler evaluation of the left ovary.. Small bilateral ovarian cysts or follicles largest 2.3cm, likely physiologic. FREE FLUID: No free fluid. IMPRESSION: No suspicious pelvic abnormality.
--- NOTE | 2025-05-30 19:35 | P.PN ---
Date of Service: 05/30/25 Subjective Reports continued right abdominal pain, able to ambulate Advancing to FLD and monitor abdominal pain ROS 10 point ROS as noted above, otherwise negative Physical Exam General: Alert and Oriented x3, NAD HEENT: Atraumatic, Normocephalic Neck: Supple, 2+ carotid pulse no bruit Respiratory: Clear BBS, Normal air movement, on RA Cardiovascular: Normal pulses, RRR Gastrointestinal: Tenderness right lower quadrant (severe) Musculoskeletal: No clubbing Neurological: Normal speech, Normal tone Vitals Reviewed Problem list Intractable abdominal pain likely 2/2 colitis vs ovarien cyst rupture History of gastric sleeve Assessment and Plan Intractable abdominal pain likely 2/2 colitis vs ovarian cyst rupture History of gastric sleeve -Recently restarted monjauro -protonix, carafate -IVF -pain medications -NPO except ice chips and PO meds -Dr. Parsons consulted, will evaluate for diagnostic laparoscopy -CT reports from outside hospital reporting ovarian cyst -Cdiff negative -plan to advance diet, monitor abdominal pain Anemia -H/H -continue to monitor -Transfuse PRN -Anemia workup in the AM DVT PPx SCDs Full code LOS 24-hour OBS Discharge Plan: Home Plan to discharge in: 24 Hours Time Spent Managing Pts Care (In Minutes): 35
[2025-05-31] MEDS: ACETAMINOPHEN 325 MG TABLET PO PRN (00:05)
[2025-05-31 05:54] LABS: Absolute Lymphocytes (CBC) 1.6 K/uL (0.7-4.9); Hematocrit 32.6 % (36.0-45.0); Hemoglobin 11.2 g/dL (12.0-15.0); MCH 32.1 pg (27.0-35.0); MCHC 34.4 g/dL (32.0-36.0); MCV 93.3 fL (80-100); MPV 8.0 fL (7.6-11.3); Nucleated RBC Absolute Count 0.0 (0-0); Nucleated Red Blood Cells % 0.1 % (0-0); RBC Red Blood Cell Count 3.50 M/uL (3.86-4.86); White Blood Count 5.30 thou/uL (4.3-10.9)
[2025-05-31 06:45] LABS: ALT/SGPT 18 U/L (13-56); Albumin 2.7 g/dL (3.4-5.0); Albumin/Globulin Ratio 1.1 (1.1-1.8); Alkaline Phosphatase 38 U/L (45-117); Anion Gap 6.9 mEq/L (5.0-15.0); BUN Blood Urea Nitrogen 7 mg/dL (7-18); Ferritin 25.4 ng/mL (8-252); Globulin 2.5 g/dL (2.3-3.5); Glucose Level 88 mg/dL (74-106); Iron 39.0 ug/dL (50-170); Magnesium 1.7 mg/dL (1.6-2.4); Potassium 3.9 mEq/L (3.5-5.1); Transferrin 186 mg/dL (200-360)
[2025-05-31 06:51] LABS: AST/SGOT < 10 U/L (15-37)
[2025-05-31] MEDS: MAGNESIUM SULFATE 1 gm IVPB 1 GM/100 ML BAG IV ONE (07:35)
[2025-05-31] MEDS: POTASSIUM CL SA 10 MEQ TAB PO ONE (07:36)
--- NOTE | 2025-05-31 13:55 | P.PN ---
Date of Service: 05/31/25 Subjective Reports vomiting with a headache this morning Otherwise doing well ROS 10 point ROS as noted above, otherwise negative Physical Exam General: AAO x3, NAD HEENT: Atraumatic, Normocephalic Neck: Supple, 2+ carotid pulse no bruit Respiratory: Clear BBS, on RA Cardiovascular: Normal pulses, NSR Gastrointestinal: Tenderness right lower quadrant (severe) Musculoskeletal: No clubbing Neurological: Normal speech, Normal tone Vitals Reviewed Problem list Intractable abdominal pain likely 2/2 colitis vs ovarien cyst rupture History of gastric sleeve Assessment and Plan Intractable abdominal pain likely 2/2 colitis vs ovarian cyst rupture History of gastric sleeve -Recently restarted monjauro -protonix, carafate -Continue Cipro and Flagyl -Continue IVF -pain medications -NPO except ice chips and PO meds -Dr. Parsons consulted, will evaluate through Sunday -CT reports from outside hospital reporting ovarian cyst -Cdiff negative -plan to advance diet, monitor abdominal pain Anemia -H/H -continue to monitor -Transfuse PRN -Anemia workup iron 39, TIBC 260, transferrin 186, T saturation 15, ferritin 25.4, B12 699 DVT PPx SCDs Full code LOS 24-hour OBS Discharge Plan: Home Plan to discharge in: 24 Hours Time Spent Managing Pts Care (In Minutes): 35
[2025-06-01 06:05] LABS: Absolute Lymphocytes (CBC) 2.2 K/uL (0.7-4.9); Hematocrit 31.7 % (36.0-45.0); Hemoglobin 11.4 g/dL (12.0-15.0); MCH 33.2 pg (27.0-35.0); MCHC 35.9 g/dL (32.0-36.0); MCV 92.5 fL (80-100); MPV 8.4 fL (7.6-11.3); Nucleated RBC Absolute Count 0.0 (0-0); Nucleated Red Blood Cells % 0.0 % (0-0); RBC Red Blood Cell Count 3.43 M/uL (3.86-4.86); White Blood Count 5.70 thou/uL (4.3-10.9)
[2025-06-01 06:24] LABS: ALT/SGPT 20.0 U/L (13-56); AST/SGOT 17.0 U/L (15-37); Albumin 2.8 g/dL (3.4-5.0); Albumin/Globulin Ratio 1.1 (1.1-1.8); Alkaline Phosphatase 36.0 U/L (45-117); Anion Gap 9.8 mEq/L (5.0-15.0); BUN Blood Urea Nitrogen 6.0 mg/dL (7-18); Globulin 2.6 g/dL (2.3-3.5); Glucose Level 91.0 mg/dL (74-106); Magnesium 1.8 mg/dL (1.6-2.4); Potassium 3.8 mEq/L (3.5-5.1)
[2025-06-01] MEDS: MAGNESIUM SULFATE 1 gm IVPB 1 GM/100 ML BAG IV ONE (07:56)
[2025-06-01] MEDS: KCL 20 MEQ/100 mL IVPB 20 MEQ/100 ML BAG IV SCH (07:57)
[2025-06-01] MEDS ORDERED: MIDAZOLAM HCL 2 MG/2 ML INJ ONE (09:49)
[2025-06-01] MEDS ORDERED: ROCURONIUM 50 MG/5 ML VIAL IV ONE (09:49)
[2025-06-01] MEDS ORDERED: LIDOCAINE 1% MPF 5 ML VIAL ONE (09:49)
[2025-06-01] MEDS ORDERED: FENTANYL CITR 100 MCG/2 ML ONE (09:49)
[2025-06-01] MEDS ORDERED: ONDANSETRON 4 MG/2 ML VIAL ONE (09:49)
[2025-06-01] MEDS ORDERED: KETOROLAC 30 MG/ML INJ ONE (10:19)
[2025-06-01] MEDS ORDERED: GLYCOPYRROLATE 0.2 MG/ML SYR ONE ×2 (10:51→11:09)
[2025-06-01] MEDS ORDERED: NEOSTIGMINE 1 MG/ML -10 ML VIAL ONE (11:09)
[2025-06-01] MEDS: Mastisol Adhesive Liq ONE (11:16)
--- NOTE | 2025-06-01 11:32 | P.BOP ---
Preoperative diagnosis: intractable abdominal pain Postoperative diagnosis: same Primary procedure: 1. Diagnostic laparoscopy, 2. Laparoscopic appendectomy Secondary procedure: 3. Open repair of umbilical hernia Estimated blood loss: <10cc Specimen: appendix, hernia sac Findings: see dicta Anesthesia: General Complications: None Transferred to: Recovery Room Condition: Good
[2025-06-01] MEDS: ONDANSETRON 4 MG/2 ML VIAL ONE (11:36)
[2025-06-01 11:38] VITALS: O2SAT 100
[2025-06-01] MEDS: HYDROMORPHONE HCL 1 MG/ML INJ ONE (11:46)
[2025-06-01] MEDS: HYDROMORPHONE HCL 0.5 MG/0.5 ML INJ ONE (11:58)
[2025-06-01] MEDS: HYDROCODONE/APAP 5/325 MG TAB PO PRN (12:56)
[2025-06-01] MEDS: MORPHINE 2 MG/ML SYR IV PRN (15:16)
--- NOTE | 2025-06-01 18:25 | P.PN ---
Date of Service: 06/01/25 Subjective Surgery today, Dr. Parsons performed an appendectomy and umbilical hernia repair She retained urine post procedure and reports this happens when a reyes catheter is placed. She will likely DC in the morning. ROS 10 point ROS as noted above, otherwise negative Physical Exam General: Oriented x3, NAD, afebrile HEENT: Atraumatic Neck: Supple, 2+ carotid pulse no bruit Respiratory: Normal air movement Cardiovascular: Regular rate and rhythm, S1-S2 present Gastrointestinal: Generalized discomfort Musculoskeletal: No clubbing Neurological: Normal speech, Normal tone Vitals Reviewed Problem list S/P diagnostic laparoscopy, laparoscopic appendectomy, umbilical hernia repair Intractable abdominal pain likely 2/2 colitis vs ovarien cyst rupture History of gastric sleeve Iron deficiency Anemia Assessment and Plan S/P diagnostic laparoscopy, laparoscopic appendectomy, umbilical hernia repair Intractable abdominal pain likely 2/2 colitis vs ovarian cyst rupture History of gastric sleeve -Recently restarted monjauro -protonix, carafate -Continue Cipro and Flagyl -Continue IVF -pain medications -NPO except ice chips and PO meds -Dr. Parsons consulted, will evaluate through Sunday -CT reports from outside hospital reporting ovarian cyst -Cdiff negative -plan to advance diet, monitor abdominal pain Iron deficiency Anemia -H/H -continue to monitor -Transfuse PRN -Anemia workup iron 39, TIBC 260, transferrin 186, T saturation 15, ferritin 25.4, B12 699 -Ferrous sulfate 325mg daily DVT PPx SCDs Full code LOS 24-hour OBS Discharge Plan: Home Plan to discharge in: 24 Hours Time Spent Managing Pts Care (In Minutes): 42
--- NOTE | 2025-06-01 23:05 | OP ---
Date of Procedure: 06/01/2025 Surgeon: Levon Parsons MD Preoperative Diagnosis: Intractable abdominal pain. Postoperative Diagnosis: Intractable abdominal pain. Procedures: 1. Diagnostic laparoscopy. 2. Laparoscopic appendectomy. 3. Open repair of umbilical hernia. Estimated Blood Loss: Less than 10 cc. Specimen: Appendix and hernia sac. Findings: The patient has a few things. The patient has a large ovarian cyst on the left side with no inflammation on it. On the right side, the patient has a large what we can call follicular cyst. There is some, at 1 point, looked like there was blood tinged fluid coming from that area. Apparent ly, it was coming from the right side. Fallopian tubes look okay. At this moment, there is no evide nce of hemorrhage. The appendix is near that follicular cyst, also getting inflamed the tip of the a ppendix. I am not sure if this is the main cause or just a result of the follicular cyst bleeding in the past. The ascending, transverse, and descending colon with no extraluminal masses. Gallbladder with no inflammation, nondistended. Liver with no extraluminal masses. Stomach soft and compressib le. Indications: This is the case of a 34-year-old patient admitted to the hospital for few days after h aving abdominal pain, unknown origin multiple ER visits, multiple CAT scans, multiple imaging. She w as treated conservatively today. The pain is still present. We offered her diagnostic laparoscopy w ith benefits, alternatives, and risks including, but not limited to infection, bleeding, damage to ad jacent structures, anesthesia complication. Negative appendix, negative exploration, SC, and even de ath. She also understands this may not relieve symptoms. She might need more than one surgical inte rvention. We discussed with her and her different options, also differential diagnosis of he r pain this is a diagnostic procedure. We may not even find the cause of her pain. She u nderstood. She also started not too long ago in GLP1 weight loss medications and she may have to con sult her doctor for side effects of that. She also has a history of left ovarian cyst since she was in high school. With those conditions, pros and cons and she wants a diagnostic laparosco py and possible appendectomy and also repair of umbilical hernia since it is in the belly button and we have to go through it. The benefits, alternatives, and risks fully explained, which in clude, but not limited to infection, bleeding, damage to adjacent structures, anesthetic complication , negative exploration, negative appendix, SC, and even . She also understands this may not rel ieve symptoms. She might need more than one surgical intervention. She understood, signed a consent . Description Of Procedure: The patient was brought to the operating room, placed in supine position. Anesthesia was without complication. A time-out was called. Abdomen was prepped and draped in usua l sterile fashion. Local anesthesia was applied followed by sharp incision of skin in the periumbili ayana region. We noticed the patient to have umbilical hernia present, so we the umbilical s ac from umbilical skin, opened the hernia sac, reduced the omentum present, removed the hernia sac. Vicryl #1 placed inside the fascia. Richard trocar was carefully introduced. Pneumoperitoneum was ob tained. We put in more trocars. We were trying to take a look at the area of the pelvis, which she has been problem too. We found the ovaries and we have a blood tinge on the area of the pelvis. At that moment, I proceeded to put 5 mm trocars, 2 of them, suprapubic and left lower quadrant under dir ect visualization. This allowed me to visualize the abdomen with the findings described above. We i rrigated the blood tinged fluid on the right side. The left ovary does not look at all like it has b een having any bleeding. The right side looked like a follicular cyst that at 1 point looked like le aked. There was some blood tinge in that area, but no active hemorrhage. The appendix unfortunately lies next to it and the tip of the appendix is inflamed because it is lying right next to the ovaria n cyst. The etiology of that may be just reactive to the ovarian cyst. The rest of the abdomen we c ould not see any other pathology. I went outside, discussed the case with the mother and the . Discussed case of the bilateral ovarian cysts, discussed case also of the appendix. Since the cassy endix is not completely negative, they want the appendix removed, so the pros and cons were discussed with the patient's family again. At that moment went back to the OR to create a window in the base of the appendix, transected that with Endo ENMA nonvascular and the mesoappendix with the Endo-ENMA vas cular and then reinforced hemostasis with hemoclips. Appendix removed from abdominal cavity using th e EndoCatch through the umbilical incision. This was done after obtaining pneumoperitoneum again. W e irrigated the area. We did not see any blood at this moment after we irrigated the area and then t he appendix. We saw no bowel leaks or any bleeding. At that moment, I proceeded to remove the troca rs under direct vision, deflated pneumoperitoneum, closed the fascia and umbilical hernia with #1 Tee ryl. Irrigated subcutaneous tissue, closed that with 3-0 chromic and skin in a subcuticular fashion with 3-0 chromic and Steri-Strips on top. Sponge count, instrument counts correct. The patient yariel rated the procedure well. The patient was sent to recovery room in stable condition. The patient wi ll be admitted to the floor. If she goes home this afternoon after dinner, we advised her to follow up with me in a week. Follow up also with her first aid teacher to see if there is any way to address the bilateral cyst region, especially the right side which looks functional to see if there is any way t o the with medication. She was also advised to discuss the weight loss program with the adolfo erwin doctor. BINA/CARLOZ Voice ID: [id number] Report ID: [id number]
[2025-06-02 05:28] LABS: Absolute Lymphocytes (CBC) 2.2 K/uL (0.7-4.9); Hematocrit 30.7 % (36.0-45.0); Hemoglobin 10.8 g/dL (12.0-15.0); MCH 32.7 pg (27.0-35.0); MCHC 35.2 g/dL (32.0-36.0); MCV 92.9 fL (80-100); MPV 8.4 fL (7.6-11.3); Nucleated RBC Absolute Count 0.0 (0-0); Nucleated Red Blood Cells % 0.0 % (0-0); RBC Red Blood Cell Count 3.30 M/uL (3.86-4.86); White Blood Count 7.90 thou/uL (4.3-10.9)
[2025-06-02 06:11] LABS: ALT/SGPT 18 U/L (13-56); Albumin 2.8 g/dL (3.4-5.0); Albumin/Globulin Ratio 1.0 (1.1-1.8); Alkaline Phosphatase 37 U/L (45-117); Anion Gap 6.9 mEq/L (5.0-15.0); BUN Blood Urea Nitrogen 5 mg/dL (7-18); Globulin 2.7 g/dL (2.3-3.5); Glucose Level 98 mg/dL (74-106); Magnesium 1.8 mg/dL (1.6-2.4); Potassium 3.9 mEq/L (3.5-5.1)
[2025-06-02 06:17] LABS: AST/SGOT < 10 U/L (15-37)
[2025-06-02] MEDS: MAGNESIUM SULFATE 1 gm IVPB 1 GM/100 ML BAG IV ONE (07:32)
[2025-06-02] MEDS: FERROUS SULFATE 325 MG TAB PO SCH (07:33)
[2025-06-02] MEDS: POTASSIUM CL SA 10 MEQ TAB PO ONE (07:33)
[2025-06-02 09:34] VITALS: BP 108/69; TEMP 98.2
--- NOTE | 2025-06-02 11:09 | P.PN ---
Subjective Date of Service: 06/02/25 Chief Complaint: intractable abdominal pain, enteritis, nausea, appendicitis, bilateral ovar Subjective: Tolerating diet, Improving Review of Systems General: Unremarkable Eyes: Unremarkable ENT: Unremarkable Respiratory: Unremarkable Cardiovascular: Unremarkable Gastrointestinal: Unremarkable Physical Examination - Vital Signs Temperature: 98.2 F Blood Pressure: 108/69 Pulse: 61 Respirations: 17 Pulse Ox (%): 100 - Physical Exam General: Alert, In no apparent distress, Oriented x3, Cooperative HEENT: PERRLA Neck: Supple Cardiovascular: Normal pulses Gastrointestinal: Soft and benign Musculoskeletal: No erythema, No tenderness, No warmth Integumentary: No rashes, No breakdown, No erythema, No warmth, No cyanosis Neurological: Normal gait, Normal speech, Normal tone Assessment And Plan - Plan Pt feel a lot better f/u my office in a week advance diet ok to d/h from surgical standpoint
--- NOTE | 2025-06-02 14:47 | P.DS ---
Admission Date: 05/29/25 Discharge Date: 06/02/25 Disposition: ROUTINE DISCHARGE Discharge Condition: GOOD Reason for Admission: intractable abdominal pain, enteritis, nausea, appendicitis, bilateral ovar Brief History of Present Illness: Pamela Osman is a 34 year old female with pmhx of gastric sleeve who presents to the ED from Dr. Parsons's office with intractable abdominal pain located to right groin radiating to RUQ and across the lower abdomen. She reports having a normal bowel movement on prior to the abdominal pain beginning. She reports going to Dr. Leigh office where she was referred to see Dr. Parsons. She reports using Mounjaro in April. CT abd/pelvis is unremarkable. Pamela will be admitted to hospitalist service for further evaluation of intractable abdominal pain. Dr. Parsons consulted. Hospital Course: Problem list Acute appendicitis status post laparoscopic appendectomy Umbilical hernia repair Ovarian cysts Abdominal pain History of gastric sleeve Patient was admitted to the hospital for intractable abdominal pain in the right side the abdomen. She was brought to the OR for a diagnostic laparoscopy with laparoscopic appendectomy and open repair of umbilical hernia. After this her abdominal pain significantly improved. She also felt Carafate had helped. Additionally she had recently started Mounjaro. Patient is doing well postoperatively, she did have some postoperative urinary retention but she is now voiding without difficulty. During her hospitalization her iron level was checked and it was 39, TIBC 260 transferrin 186 transferrin saturation percent was 15 and ferritin was 25.4 General surgery discussed findings during surgery with patient the need for outpatient follow-up with gynecology given the findings of the cyst during surge ry. She was recommended to take daily [id number] iron supplementation as well. Follow-up with Dr. Parsons in 1 week Follow-up with gynecology New medications will include Robbinston for pain, Carafate as needed, Cipro antibiotic for 5 days Vital Signs/Physical Exam: Temp Pulse Resp BP Pulse Ox 98.2 F 61 17 108/69 100 06/02/25 11:06/02/25 11:06/02/25 11:06/02/25 11:06/02/25 11:09 General: Alert, In no apparent distress HEENT: Atraumatic, PERRLA, EOMI Neck: Supple, JVD not distended Respiratory: Clear to auscultation bilaterally, Normal air movement Cardiovascular: Regular rate/rhythm, Normal S1 S2 Gastrointestinal: Normal bowel sounds, No tenderness Musculoskeletal: No tenderness Integumentary: No rashes Neurological: Normal speech, Normal affect Lymphatics: No axilla or inguinal lymphadenopathy Laboratory Data at Discharge: WBC 7.90 thou/uL (4.3-10.9) 06/02/25 04:54 Hgb 10.8 g/dL (12.0-15.0) L 06/02/25 04:54 Hct 30.7 % (36.0-45.0) L 06/02/25 04:54 Plt Count 211 thou/uL (152-406) 06/02/25 04:54 Sodium 141 mEq/L (136-145) 06/02/25 04:54 Potassium 3.9 mEq/L (3.5-5.1) 06/02/25 04:54 BUN 5 mg/dL (7-18) L 06/02/25 04:54 Creatinine 0.52 mg/dL (0.55-1.02) L 06/02/25 04:54 Glucose 98 mg/dL (74-106) 06/02/25 04:54 Phosphorus 3.3 mg/dL (2.5-4.9) 06/02/25 04:54 Magnesium 1.8 mg/dL (1.6-2.4) 06/02/25 04:54 Total Bilirubin 0.4 mg/dL (0.2-1.0) 06/02/25 04:54 AST < 10 U/L (15-37) L 06/02/25 04:54 ALT 18 U/L (13-56) 06/02/25 04:54 Alkaline Phosphatase 37 U/L (45-117) L 06/02/25 04:54 Triglycerides 129 mg/dL (<150) 05/30/25 05:30 Cholesterol 145 mg/dL (<200) 05/30/25 05:30 HDL Cholesterol 43 mg/dL (40-60) 05/30/25 05:30 Cholesterol/HDL Ratio 3.37 05/30/25 05:30 Lipase 42 U/L (13-75) 05/29/25 12:42 Home Medications: Ciprofloxacin HCl 500 mg PO BID 5 Days #10 tab 06/02/25 Hydrocodone 5/APAP 325 [Robbinston 5/325*] 1 tab PO Q6H PRN #15 tab 06/02/25 Hydrocodone 5/APAP 325 [[place] 5/325] 1 tab PO Q6H PRN #15 tab 06/02/25 Sucralfate [Carafate*] 1 gm PO ACHS #120 tab 06/02/25 New Medications: Sucralfate [Carafate*] 1 gm PO ACHS #120 tab Ciprofloxacin HCl 500 mg PO BID 5 Days #10 tab Hydrocodone 5/APAP 325 [[place] 5/325*] 1 tab PO Q6H PRN #15 tab PRN Reason: Pain Scale 5-7 (Moderate) Hydrocodone 5/APAP 325 [Robbin[place] 5/325] 1 tab PO Q6H PRN #15 tab PRN Reason: Pain Physician Discharge Instructions: Patient was admitted to the hospital for intractable abdominal pain in the right side the abdomen. She was brought to the OR for a diagnostic laparoscopy with laparoscopic appendectomy and open repair of umbilical hernia. After this her abdominal pain significantly improved. She also felt Carafate had helped. Additionally she had recently started Mounjaro. Patient is doing well postoperatively, she did have some postoperative urinary retention but she is now voiding without difficulty. During her hospitalization her iron level was checked and it was 39, TIBC 260 transferrin 186 transferrin saturation percent was 15 and ferritin was 25.4 General surgery discussed findings during surgery with patient the need for outpatient follow-up with gynecology given the findings of the cyst during surgery. She was recommended to take daily [id number] iron supplementation as well. Follow-up with Dr. Parsons in 1 week Follow-up with gynecology New medications will include Robbinston for pain, Carafate as needed, Cipro antibiotic for 5 days Follow up with a Gynecologic Surgeon of your choice: ANDIE PUENTE MD [address] [place] [address], [address] [place] [address] Diet: Sanborn Activity: No lifting more than 10 lbs Followup: Levon Parsons MD [ACTIVE - CAN ADMIT] - 1 Week Roscoe Lindsay MD [Primary Care Provider] - 1-2 Weeks Time spent managing pt's care (in minutes): 45
== END 2025-06-02 11:30 | disposition home or self-care (01) | DRG 399 ==
LOC: ER 11:58 → ERHOLD 16:34 → 4TH 17:32
PROVIDERS: ADMIT Internal Medicine; ATTEND Hospitalist
PROC: 0DTJ4ZZ Resection of Appendix, Percutaneous Endoscopic Approach (ICD-10-PCS; principal; 2025-06-01 10:30)
PROC: 0WQF0ZZ Repair Abdominal Wall, Open Approach (ICD-10-PCS; 2025-06-01 10:30)
DX: K35.80 Unspecified acute appendicitis (principal); D50.9 Iron deficiency anemia, unspecified; K42.9 Umbilical hernia without obstruction or gangrene; N83.209 Unspecified ovarian cyst, unspecified side; R33.9 Retention of urine, unspecified; Z98.84 Bariatric surgery status
CPT/HCPCS: 36415; 74177; 76856; 80053; 80061; 81001; 81025; 82607; 82728; 83010; 83540; 83690; 83735; 84100; 84439; 84443; 84466; 84484; 85025; 87324; 88302; 88304; 94010; 96361; 96372; 96374; 96375; 99285; J0500; J0696; J1171; J2003; J2250; J2270; J2405; J2470; J2704; J2710; J3010; J3475; J3480; J7030; Q9967

== ENCOUNTER 2025-07-30 19:02 | Emergency (ER) | payer BC ==
--- OUTSIDE RECORDS SUMMARY | 2025-07-30 19:09 | XMS REPORT | Continuity of Care Document ---
Author Name Unknown Address [address] 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 Name Role Phone PHILIPPE MURCIA Primary Care Physician Unavailab Abel García Attending Clinician Unavailable Onur Cantu Attending Clinician Mario Boone Attending Clinician Unavailable JIMBO HERNANDEZ Attending Clinician Unavail able JIMBO HERNANDEZ Attending Clinician Unavail able MARV WASHINGTON Attending Clinician Unavailable MARV WASHINGTON Attending Clinician Unavailable Marv Correia Attending Clinician [phone] RADIOLOGY Attending Clinician Unavailable Radiology Attending Clinician Unavailable KULDIP BEAR Attending Clinician Unavailab KULDIP Watson Attending Clinician Unavailab REKHA Martin Attending Clinician Unavailab Rekha Martin DO Attending Clinician [phone] Mallory SHERMAN, Eufemia Attending Clinician Unavailable GROVER MONSON Attending Clinician Unavailable Grover Monson DO Attending Clinician [phone] Doctor Unassigned, [place] Attending Clinician U navailable TOBY OSORIO Attending Clinician Unavailable Troy SHERMAN, Mimi Sparks Attending Clinician Unavailab Moon Arellano Attending Clinician [phone] Eduard HOLLY, Liam Gooden Attending Clinician + [phone] LIAM CHAPA Attending Clinician Unavailable NILSON REED Attending Clinician Unavailwillie Mendoza RN, Archana Attending Clinician Unavailable [facility] Attending Clinician Unav ailable Jovani SOUTHP, Maia Attending Clinician [phone] MAIA HAHN Attending Clinician Unavailable Abel Mcgovern Admitting Clinician Unavailable KNOW, DOES_NOT Admitting Clinician Unavailable RON HOGUE Admitting Clinician Unavailable Mario Ferrer Admitting Clinician Unavailable JIMBO HERNANDEZ Admitting Clinician Unavail able MARV WASHINGTON Admitting Clinician Unavailable SONIA MEDINA Admitting Clinician Sue vailable Payers Payer Name Policy Type Policy Number Effective Date Expirati on Date Source [employer] [facility] [id number] 2020 00:00:00 [facility] [id number] 2023 00:00:00 [employer] [id number] 2022 00:00:00 Problems Condition Name Condition Details Condition Category Status Onset Date Resolution Date Last Treatment Date Treating Clinician Comments Source Fatigue Fatigue Problem Active 2024-10 006 00:00: 00 [facility] Cyst of ovary Cyst of Ovary Problem Active 06-10 00:00: 00 [facility] Menorrhagi a Menorrhagi a Problem Active 06-10 00:00: 00 [facility] Pain in female pelvis Pain in Female Pelvis Problem Active 06-10 00:00: 00 [facility] Right lower quadrant pain Right Lower Quadrant Pain Problem Active 06-10 00:00: 00 [facility] 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 Problem Active 06-10 00:00: 00 [facility] Obesity (BMI 30-39.9) Obesity (BMI 30-39.9) Disease Active 07-17 00:00: 00 [facility] Ectopic without intrauteri ne , unspecifie d location Ectopic without intrauteri ne , unspecifie d location Disease Active 07-16 00:00: 00 [facility] Inappropri ate change in quantitati ve hCG in early Inappropri ate change in quantitati ve hCG in early Disease Active 06-12 00:00: 00 [facility] Acanthosis nigricans Acanthosis nigricans Disease Active 05-29 00:00: 00 [facility] Personal history of gastric banding Personal history of gastric banding Disease Active 05-29 00:00: 00 [facility] BMI 37.0-37.9, adult BMI 37.0-37.9, adult Disease Active 05-29 00:00: 00 [facility] of unknown anatomic location of unknown anatomic location Disease Resolve d 06-12 00:00: 00 2018-07-17 00:00:00 2018-07-17 13:25:52 [facility] Non-viable Non-viable Disease Resolve d 06-12 00:00: 00 2018-06-12 00:00:00 2018-06-12 16:32:10 [facility] Allergies, Adverse Reactions, Alerts Allergy Name Allergy Type Status Severity Reaction(s) Onset Date Inactive Date Treating Clinician Comments Source clavulan ic acid DA Active MO RASH 24 00:00: 00 [facility] amoxicil renea DA Active MO RASH 24 00:00: 00 [facility] clavulan ic acid DA Active MO RASH -12 00:00: 00 [facility] amoxicil renea DA Active MO RASH 0 5-12 00:00: 00 [facility] amoxicil rneea DA Active MO RASH 0 6- 00:00: 00 [facility] clavulan ic acid DA Active MO 0 6- 00:00: 00 [facility] amoxicil renea DA Active MO 0 6- 00:00: 00 [facility] clavulan ic acid DA Active MO RASH 04-01 00:00: 00 [facility] clavulan ic acid DA Active MO RASH 2019-10 00:00: 00 [facility] amoxicil renea DA Active MO RASH 2019-10 00:00: 00 [facility] clavulan ic acid DA Active MO 2019-10 00:00: 00 [facility] amoxicil renea DA Active MO 2019-10 00:00: 00 [facility] clavulan ic acid DA Active MO 2018-10 00:00: 00 [facility] amoxicil rneea DA Active MO 2018-10 00:00: 00 [facility] amoxicil renea DA Active MO RASH 2018-10 00:00: 00 [facility] clavulan ic acid DA Active MO RASH 2018-10 00:00: 00 [facility] Amoxicil renea-Pot Clavulan ate Propensi ty to adverse reaction s Active Hives 05-29 00:00: 00 [facility] AMOXICIL RENEA-POT CLAVULAN ATE DRUG Active Hives 05-29 00:00: 00 [facility] NO KNOWN ALLERGIE S Drug Class Active [facility] Social History Social Habit Start Date Stop Date Quantity Comments Source History SDOH Alcohol Frequency [facility] History SDOH Alcohol Std Drinks [facility] History SDOH Alcohol Binge [facility] Gender identity [facility] Not [facility] History of Occupation [facility] Alcoholic beverage intake 2024-08-05 00:00:00 2024-08-05 00:00:00 Current drinker of alcohol (finding) [facility] Alcohol intake 2023-06-21 00:00:00 2023-06-21 00:00:00 Current drinker of alcohol (finding) [facility] Exposure to SARS-CoV-2 (event) 2023-03-09 00:00:00 2023-03-19 07:24:00 Not sure [facility] History of Social function 2019-05-01 00:00:00 2019-05-01 00:00:00 [facility] Tobacco use and exposure 2018-05-29 00:00:00 2018-05-29 00:00:00 Smokeless tobacco non-user [facility] Alcohol Comment 2018-05-29 00:00:00 2018-05-29 00:00:00 weekends / social [facility] Sex assigned at 1990 00:00:00 1990 00:00:00 [facility] Smoking Status Start Date Stop Date Source Never Smoker [facility] Medications Ordered Medication Name Filled Medication Name Start Date Stop Date Current Medication? Ordering Clinician Indication Dosage Frequency Signature (SIG) Comments Components Source iopamidol (ISOVUE 370-500 mL) injection 80 mL 05-28 18:30: 00 05-28 18:30 :00 No [id number] 80mL 80 mL, Intravenou s, ONCE, 1 dose, On Sun05/28/25 at 1330, Routine [facility] morpHINE (4 mg/mL) injection 4 mg 05-28 18:00: 00 05-28 17:54 :00 No 4mg 4 mg, Slow IV Push, ONCE, 1 dose, On Sun05/28/25 at 1300, STAT [facility] FENTanyl (PF) (SUBLIMAZE) injection 25 mcg 05-28 16:30: 00 05-28 17:00 :00 No 25ug 25 mcg, Slow IV Push, ONCE, 1 dose, On Sun05/28/25 at 1130, STAT [facility] ondansetron (ZOFRAN (PF)) injection 4 mg 05-28 16:30: 00 05-28 17:01 :00 No 4mg 4 mg, Slow IV Push, ONCE, 1 dose, On Sun05/28/25 at 1130, Administer over 2-5 Minutes, 2 mL [facility] dicyclomine 20 mg tablet 05-28 00:00: 00 06-03 04:59 :00 Yes [id number] 20mg Take 1 tablet by mouth 3 times daily as needed for Abdominal pain for up to 5 days. [facility] ondansetron 4 mg disintegrat ing tablet 05-28 00:00: 00 06-03 04:59 :00 Yes [id number] 4mg Take 1 tablet by mouth every 8 hours as needed for Nausea and Vomiting (N/V) for up to 5 days. [facility] amoxicillin -clavulanat e (AUGMENTIN) 875-125 mg per tablet 1 tablet 2023-10 18:30: 00 08-05 17:53 :00 No 1{tbl} 1 tablet, Oral, ONCE NOW, 1 dose, On Sun08/05/24 at 1330, Routine, Reason for Anti-Infec tive: Documented Infection, Documented Infection Site: Abdominal, Duration of Therapy: Once (ED) [facility] dexamethaso ne sod phos PF injection 10 mg 2023-10 17:45: 00 08-05 17:50 :00 No 10mg 10 mg, Slow IV Push, ONCE, 1 dose, On Sun08/05/24 at 1245, 1 mL [facility] iopamidol (ISOVUE 370-500 mL) injection 100 mL 2023-10 17:30: 00 08-05 17:30 :00 No [id number] 100mL 100 mL, Intravenou s, ONCE, 1 dose, On Sun08/05/24 at 1230, Routine [facility] ondansetron (ZOFRAN (PF)) injection 4 mg 2023-10 16:15: 00 08-05 16:04 :00 No 4mg 4 mg, Slow IV Push, ONCE, 1 dose, On Sun08/05/24 at 1115, TANNER [facility] fentanyl PF (SUBLIMAZE (PF)) injection 50 mcg 2023-10 16:15: 00 08-05 16:06 :00 No 50ug 50 mcg, Slow IV Push, ONCE, 1 dose, On Sun08/05/24 at 1115, STAT [facility] ondansetron 4 mg disintegrat ing tablet 2023-10 00:00: 00 Yes [id number] 4mg Take 1 tablet by mouth every 8 (eight) hours as needed for Nausea and Vomiting (N/V). [facility] dicyclomine 20 mg tablet 2023-10 00:00: 00 Yes [id number] 20mg Take 1 tablet by mouth 4 (four) times daily as needed for Abdominal pain. [facility] amoxicillin -clavulanat e 875-125 mg per tablet 2023-10 00:00: 00 08-13 04:59 :00 No [id number] 1{tbl} Take 1 tablet by mouth every 12 (twelve) hours for 7 days. [facility] tc 99m-mebrofe jose ramon injection 10.2 millicurie 03-05 13:45: 00 03-05 13:12 :00 No [id number] 10.2mCi 10.2 millicurie , Intravenou s, ONCE, 1 dose, On Sun03/05/24 at 0845, Routine [facility] polymyxin B sulf-trimet hoprim 10,000 unit- 1 mg/mL ophthalmic drops 05-10 00:00: 00 Yes [id number] 1[drp] Place 1 Drop in left eye every 4 (four) hours. [facility] ketorolac (TORADOL) injection 30 mg 03-19 13:30: 00 03-19 12:55 :00 No 30mg 30 mg, Slow IV Push, ONCE, 1 dose, On Sun03/19/23 at 0830, Routine [facility] NaCl 0.9% (NS) bolus infusion 1,000 mL 03-19 13:30: 00 03-19 13:52 :00 No 1000mL at 999 mL/hr, 1,000 mL, IV Infusion, ONCE, 1 dose, On Sun03/19/23 at 0830, [facility]hen[facility] (BENADRYL) injection 25 mg 03-19 12:45: 00 03-19 12:55 :00 No 25mg 25 mg, Slow IV Push, ONCE, 1 dose, On Sun03/19/23 at 0745, STAT [facility] metoclopram faheem HCl (REGLAN) injection 10 mg 03-19 12:45: 00 03-19 12:55 :00 No 10mg 10 mg, Slow IV Push, ONCE, 1 dose, On Sun03/19/23 at 0745, [facility] famotidine (PEPCID (PF)) injection 20 mg 06-18 20:30: 00 06-18 19:33 :00 No 20mg 20 mg, Slow IV Push, ONCE, 1 dose, On Sun06/18/22 at 1530, Routine [facility] NaCl 0.9% (NS) bolus infusion 1,000 mL 06-18 20:15: 00 06-18 20:13 :00 No 1000mL at 999 mL/hr, 1,000 mL, IV Infusion, ONCE, 1 dose, On Sun06/18/22 at 1515, [facility] maalox:diph enhydrAMINE :lidocaine 2 % viscous 1:1:1 (FIRST-MOUT HWASH BLM) oral suspension 15 mL 06-18 20:00: 00 06-18 20:08 :00 No 15mL 15 mL, Oral, ONCE, 1 dose, On Sun06/18/22 at 1500, [facility] ketorolac (TORADOL) injection 30 mg 06-18 19:30: 00 06-18 19:32 :00 No 30mg 30 mg, Slow IV Push, ONCE, 1 dose, On 06/18/22 at 1430, [facility] ondansetron (ZOFRAN (PF)) injection 4 mg 06-18 19:30: 00 06-18 19:33 :00 No 4mg 4 mg, Slow IV Push, ONCE, 1 dose, On 06/18/22 at 1430, [facility] ondansetron 4 mg disintegrat ing tablet 06-18 00:00: 00 Yes [id number] 4mg Take 1 tablet by mouth every 8 (eight) hours as needed for Nausea and Vomiting (N/V). [facility] meloxicam 7.5 mg tablet 2019-10 00:00: 00 Yes [id number] 32610 7.5mg Take 1 tablet by mouth daily. [facility] ondansetron (ZOFRAN ODT) 4 mg disintegrat ing tablet 05-24 00:00: 00 05-30 04:59 :00 No [id number] 4mg Take 1 tablet by mouth every 8 (eight) hours as needed for Nausea and Vomiting (N/V) for up to 5 days. [facility] HYDROcodone -acetaminop hen 5-325 mg tablet 07-17 00:00: 00 Yes 1{tbl} Take 1 tablet by mouth every 6 (six) hours as needed for Pain (scale 4-6) or Pain (scale 7-10). [facility] Mounjaro Mounjaro No Mounjaro [facility] Sprintec (28) 0.25 mg-0.035 mg tablet Take 1 tablet every day by oral route for 90 days. Sprintec (28) 0.25 mg-0.035 mg tablet Take 1 tablet every day by oral route for 90 days. No 1 Q1D Sprintec (28) 0.25 mg-0.035 mg tablet Take 1 tablet every day by oral route for 90 days. [facility] Immunizations Ordered Immunization Name Filled Immunization Name Date Status Comments Source SARS-COV-2 COVID-19 MODERNA VACCINE 2021-01-24 00:00:00 Completed [facility] SARS-COV-2 COVID-19 MODERNA VACCINE 2021-01-24 00:00:00 Completed [facility] SARS-COV-2 COVID-19 MODERNA 12+ YRS VACCINE 2021-01-24 00:00:00 Completed [facility] SARS-COV-2 COVID-19 MODERNA 12+ YRS VACCINE 2021-01-24 00:00:00 Completed [facility] SARS-COV-2 COVID-19 MODERNA 12+ YRS VACCINE 2021-01-24 00:00:00 Completed [facility] SARS-COV-2 COVID-19 MODERNA 12+ YRS VACCINE 2021-01-24 00:00:00 Completed [facility] SARS-COV-2 COVID-19 MODERNA 12+ YRS VACCINE 2021-01-24 00:00:00 Completed [facility] SARS-COV-2 COVID-19 MODERNA VACCINE 2020-12-27 00:00:00 Completed [facility] SARS-COV-2 COVID-19 MODERNA VACCINE 2020-12-27 00:00:00 Completed [facility] SARS-COV-2 COVID-19 MODERNA 12+ YRS VACCINE 2020-12-27 00:00:00 Completed [facility] SARS-COV-2 COVID-19 MODERNA 12+ YRS VACCINE 2020-12-27 00:00:00 Completed [facility] SARS-COV-2 COVID-19 MODERNA 12+ YRS VACCINE 2020-12-27 00:00:00 Completed [facility] SARS-COV-2 COVID-19 MODERNA 12+ YRS VACCINE 2020-12-27 00:00:00 Completed [facility] SARS-COV-2 COVID-19 MODERNA 12+ YRS VACCINE 2020-12-27 00:00:00 Completed [facility] SARS-COV-2 COVID-19 MODERNA 12+ YRS VACCINE Unknown Completed [facility] Vital Signs Vital Name Observation Time Observation Value Comments S ource Body Weight 2025-07-27 00:00:00 170 [lb_av] [facility] Height 2025-07-27 00:00:00 60 [in_i] [facility] BP Diastolic 2025-07-27 00:00:00 72 mm[Hg] [facility] BMI (Body Mass Index) 2025-07-27 00:00:00 33.2 kg/m2 [facility] BP Systolic 2025-07-27 00:00:00 112 mm[Hg] [facility] Body Weight 2025-06-10 00:00:00 170.8 [lb_av] [facility] BMI (Body Mass Index) 2025-06-10 00:00:00 33.4 kg/m2 [facility] BP Systolic 2025-06-10 00:00:00 135 mm[Hg] [facility] BP Diastolic 2025-06-10 00:00:00 85 mm[Hg] [facility] Height 2025-06-10 00:00:00 60 [in_i] [facility] Systolic blood pressure 2025-05-28 18:45:00 124 mm[Hg] [facility] Diastolic blood pressure 2025-05-28 18:45:00 85 mm[Hg] [facility] Heart rate 2025-05-28 18:45:00 66 /min [facility] Body temperature 2025-05-28 18:45:00 36.17 Rosa M [facility] Respiratory rate 2025-05-28 18:45:00 16 /min [facility] Oxygen saturation in Arterial blood by Pulse oximetry 2025-05-28 18:45:00 100 /min [facility] Body height 2025-05-28 16:16:00 152.4 cm [facility] Body weight 2025-05-28 16:16:00 80.74 kg [facility] BMI 2025-05-28 16:16:00 34.76 kg/m2 [facility] Systolic blood pressure 2024-08-05 17:53:00 124 mm[Hg] [facility] Diastolic blood pressure 2024-08-05 17:53:00 83 mm[Hg] [facility] Heart rate 2024-08-05 17:53:00 57 /min [facility] Body temperature 2024-08-05 17:53:00 36.94 Rosa M [facility] Respiratory rate 2024-08-05 17:53:00 18 /min [facility] Oxygen saturation in Arterial blood by Pulse oximetry 2024-08-05 17:53:00 100 /min [facility] Body height 2024-08-05 15:37:00 152.4 cm [facility] Body weight 2024-08-05 15:37:00 80.74 kg [facility] BMI 2024-08-05 15:37:00 34.76 kg/m2 [facility] Systolic blood pressure 2023-06-21 18:00:00 137 mm[Hg] [facility] Diastolic blood pressure 2023-06-21 18:00:00 93 mm[Hg] [facility] Heart rate 2023-06-21 18:00:00 116 /min [facility] Body temperature 2023-06-21 18:00:00 37.11 Rosa M [facility] Respiratory rate 2023-06-21 18:00:00 16 /min [facility] Body height 2023-06-21 18:00:00 152.4 cm [facility] Body weight 2023-06-21 18:00:00 97.07 kg [facility] BMI 2023-06-21 18:00:00 41.79 kg/m2 [facility] Oxygen saturation in Arterial blood by Pulse oximetry 2023-06-21 18:00:00 100 /min [facility] Systolic blood pressure 2023-05-10 20:17:17 132 mm[Hg] [facility] Diastolic blood pressure 2023-05-10 20:17:17 81 mm[Hg] [facility] Heart rate 2023-05-10 20:17:17 90 /min [facility] Respiratory rate 2023-05-10 20:17:17 16 /min [facility] Oxygen saturation in Arterial blood by Pulse oximetry 2023-05-10 20:17:17 100 /min [facility] Body temperature 2023-05-10 19:34:05 36.89 Rosa M [facility] Body height 2023-05-10 19:20:00 152.4 cm [facility] Body weight 2023-05-10 19:20:00 102.059 kg [facility] BMI 2023-05-10 19:20:00 43.94 kg/m2 [facility] Systolic blood pressure 2023-03-19 13:53:00 125 mm[Hg] [facility] Diastolic blood pressure 2023-03-19 13:53:00 83 mm[Hg] [facility] Heart rate 2023-03-19 13:53:00 55 /min [facility] Respiratory rate 2023-03-19 13:53:00 14 /min [facility] Oxygen saturation in Arterial blood by Pulse oximetry 2023-03-19 13:53:00 98 /min [facility] Body temperature 2023-03-19 12:26:00 37.22 Rosa M [facility] Body height 2023-03-19 12:26:00 152.4 cm [facility] Body weight 2023-03-19 12:26:00 102.059 kg [facility] BMI 2023-03-19 12:26:00 43.94 kg/m2 [facility] Systolic blood pressure 2022-06-18 20:00:00 113 mm[Hg] [facility] Diastolic blood pressure 2022-06-18 20:00:00 76 mm[Hg] [facility] Heart rate 2022-06-18 20:00:00 64 /[facility] 2022-06-18 20:00:00 15 /min [facility] Oxygen saturation in Arterial blood by Pulse oximetry 2022-06-18 20:00:00 99 /min [facility] Body temperature 2022-06-18 19:13:00 36.89 Rosa M [facility] Body height 2022-06-18 19:13:00 152.4 cm [facility] Body weight 2022-06-18 19:13:00 95.709 kg [facility] BMI 2022-06-18 19:13:00 41.21 kg/m2 [facility] Systolic blood pressure 2020-11-23 04:00:00 125 mm[Hg] [facility] Diastolic blood pressure 2020-11-23 04:00:00 75 mm[Hg] [facility] Heart rate 2020-11-23 04:00:00 79 /min [facility] Body temperature 2020-11-23 04:00:00 37 Rosa M [facility] Respiratory rate 2020-11-23 04:00:00 16 /min [facility] Oxygen saturation in Arterial blood by Pulse oximetry 2020-11-23 04:00:00 98 /min [facility] Body weight 2020-11-23 02:18:00 87.091 kg [facility] BMI 2020-11-23 02:18:00 37.50 kg/m2 [facility] Systolic blood pressure 2020-11-23 04:00:00 125 mm[Hg] [facility] Diastolic blood pressure 2020-11-23 04:00:00 75 mm[Hg] [facility] Heart rate 2020-11-23 04:00:00 79 /min [facility] Body temperature 2020-11-23 04:00:00 37 Rosa M [facility] Respiratory rate 2020-11-23 04:00:00 16 /min [facility] Oxygen saturation in Arterial blood by Pulse oximetry 2020-11-23 04:00:00 98 /min [facility] Body weight 2020-11-23 02:18:00 87.091 kg [facility] BMI 2020-11-23 02:18:00 37.50 kg/m2 [facility] Systolic blood pressure 2020-09-07 21:14:00 124 mm[Hg] [facility] Diastolic blood pressure 2020-09-07 21:14:00 84 mm[Hg] [facility] Heart rate 2020-09-07 21:14:00 77 /min [facility] Body height 2020-09-07 21:14:00 152.4 cm [facility] Body weight 2020-09-07 21:14:00 84.369 kg [facility] BMI 2020-09-07 21:14:00 36.33 kg/m2 [facility] Systolic blood pressure 2020-09-07 21:14:00 124 mm[Hg] [facility] Diastolic blood pressure 2020-09-07 21:14:00 84 mm[Hg] [facility] Heart rate 2020-09-07 21:14:00 77 /min [facility] Body height 2020-09-07 21:14:00 152.4 cm [facility] Body weight 2020-09-07 21:14:00 84.369 kg [facility] BMI 2020-09-07 21:14:00 36.33 kg/m2 [facility] Systolic blood pressure 2020-05-24 20:55:00 133 mm[Hg] [facility] Diastolic blood pressure 2020-05-24 20:55:00 86 mm[Hg] [facility] Heart rate 2020-05-24 20:53:00 63 /min [facility] Body temperature 2020-05-24 20:53:00 37 Rosa M [facility] Respiratory rate 2020-05-24 20:53:00 18 /min [facility] Body height 2020-05-24 20:53:00 152.4 cm [facility] Body weight 2020-05-24 20:53:00 83.008 kg [facility] BMI 2020-05-24 20:53:00 35.74 kg/m2 [facility] Oxygen saturation in Arterial blood by Pulse oximetry 2020-05-24 20:53:00 98 /min [facility] Procedures Procedure Date / Time Performed Performing Clinician Source COMP. METABOLIC PANEL ([id number]) 2025-05-28 17:48:00 Jimbo Hernandez [facility] CT ABDOMEN PELVIS W CONTRAST 2025-05-28 17:41:46 Jimbo Hernandez [facility] AMYLASE 2025-05-28 16:53:00 Jimbo Hernandez [facility] LIPASE 2025-05-28 16:53:00 Jimbo Hernandez [facility] MAGNESIUM 2025-05-28 16:53:00 HananeJimbo [facility] TROPONIN I 2025-05-28 16:53:00 Hanane Jimbo Young [facility] HEPATIC FUNCTION PANEL ([id number]) (ALB,T.PRO,BILI T,BU/BC,ALT,AST,ALK PHOS) 2025-05-28 16:53:00 Hanane Jimbo Young [facility] BASIC METABOLIC PANEL (NA, K, CL, CO2, GLUCOSE, BUN, CREATININE, CA) 2025-05-28 16:53:00 Hanane Jimbo Young [facility] CBC WITH DIFF 2025-05-28 16:53:00 Hanane Jimbo oYung [facility] URINALYSIS 2025-05-28 16:53:00 Hanane Jimbo Young [facility] POCT TEST 2025-05-28 16:53:00 Dionisio Hernandez Hector [facility] POCT TEST 2024-08-05 15:47:00 Margi Washington [facility] LIPASE 2024-08-05 15:46:00 Marv Washington [facility] COMP. METABOLIC PANEL ([id number]) 2024-08-05 15:46:00 Marv Washington [facility] CBC WITH DIFF 2024-08-05 15:46:00 [facility] URINALYSIS 2024-08-05 15:46:00 [facility] NM HEPATOBILIARY W INTERVENTION 2024-03-05 15:07:49 Yudith Jacobo [facility] CONSENT/REFUSAL FOR DIAGNOSIS AND TREATMENT 2023-06-21 18:20:39 Doctor Unassigned, [place] [facility] CONSENT/REFUSAL FOR DIAGNOSIS AND TREATMENT 2023-05-10 19:15:29 Doctor Unassigned, [place] [facility] CONSENT/REFUSAL FOR DIAGNOSIS AND TREATMENT 2023-03-19 12:24:31 Doctor Unassigned, [place] [facility] POCT TEST 2022-06-18 19:35:00 Anne Costa ra [facility] LIPASE 2022-06-18 19:25:00 [facility] METABOLIC PANEL ([id number]) 2022-06-18 19:25:00 Rekha Costa [facility] CBC WITH DIFF 2022-06-18 19:25:00 [facility]ekha [facility] 2022-06-18 19:25:00 Rekha Costa Un [facility] CONSENT/REFUSAL FOR DIAGNOSIS AND TREATMENT 2022-06-18 19:06:07 Doctor Unassigned, [place] [facility] [id number] 2022-05-14 00:00:00 [facility] [id number] 2021-05-06 00:00:00 [facility] [id number] 2021-05-06 00:00:00 [facility] URINALYSIS 2020-11-23 03:41:00 Moon Lenz [facility] RAPID STREP SCREEN FOR GROUP A 2020-11-23 02:44:00 Moon Lenz [facility] ADC,CLC OR LCC ONLY - INFLUENZA A & B DIRECT ANTIGEN 2020-11-23 02:44:00 Moon Lenz [facility] NOTICE OF PRIVACY PRACTICES 2020-11-23 02:15:37 Doctor Unassigned, [place] [facility] CONSENT/REFUSAL FOR DIAGNOSIS AND TREATMENT 2020-11-23 02:15:15 Doctor Unassigned, [place] [facility] NO SHOW OR MISSED APPOINTMENT POLICY ACKNOWLEDGEMENT 2020-09-07 20:57:09 Doctor Unassigned, [place] [facility] [id number] 2019-11-06 00:00:00 JOSE R [facility] Tonsillectomy [facility] Medical Laparoscopic Sleeve [facility] Repair of Anterior Cruciate Ligament of Knee Joint [facility] Hern[facility] Repair [facility] Appendectomy [facility] Encounters Start Date/Time End Date/Time Encounter Type Admission Type Attending Clinicians Care Facility Care Department Encounter ID Source 2022-06-23 12:30:00 Inpatient [facility] [id number] [facility] 2022-06-21 10:00:00 Inpatient Abel Davis [facility] LD [id number] [facility] 2022-05-12 09:58:00 Inpatient Abel Gandhi [facility] OBPP [id number] [facility] 2021-08-20 21:07:55 Emergency [facility] [id number] [facility] 2021-05-18 10:30:00 Inpatient Abel Davis [facility] CARE [id number] [facility] 2021-01-04 10:00:00 Inpatient Abel Mcgovern [facility] [id number] [facility] 2020-09-28 10:37:00 Inpatient BERTA Pepe Mohr [facility] [id number] [facility] 2020-09-13 07:45:00 Inpatient Onur Paula [facility] [id number] [facility] 2019-11-05 18:18:00 Inpatient Mario Chappell [facility] LD [id number] [facility] 2019-10-31 19:15:00 Inpatient [facility] Ferrer [facility] ZENAIDA [id number] [facility] 2025-07-27 00:00:00 2025-07-27 00:00:00 KATHERINE Beal: [address], [place] [address] , Ph. [facility] - GC_GCBZW_Manuela [facility]* [id number] [facility] 2025-06-10 00:00:00 2025-06-10 00:00:00 KATHERINE Beal: [address], [place] [address] , Ph. [facility] - GC_GCBZW_[facility]* [id number] [facility] 2025-05-28 11:17:00 2025-05-28 13:47:00 Emergency X JIMBO HERNANDEZ SHEENA [facility] ERT [id number] [facility] 2024-08-05 10:38:00 2024-08-05 12:58:00 Emergency X MARV [facility]ASHINGTON [facility] ERT [id number] [facility] 2024-08-05 10:38:00 2024-08-05 12:58:00 Emergency Marv Washington [facility] 1.2.840.114 350.1.13.10 4.2.7.2.686 [id number] [facility] 2024-03-05 07:30:04 2024-03-05 23:59:00 Outpatient R RADIOLOGY [facility] [id number] [facility] 2024-03-05 07:30:04 2024-03-05 23:59:00 Hospital Encounter Radiology [facility] 1.2.840.114 350.1.13.10 4.2.7.2.686 [id number] [facility] 2024-02-26 15:00:00 2024-02-26 15:00:00 Outpatient R KULDIP BEAR OGECHUKWU [facility] [id number] [facility] 2023-06-21 13:29:00 2023-06-21 14:03:00 Emergency X REKHA COSTA [facility] ERT [id number] [facility] 2023-06-21 13:29:00 2023-06-21 14:03:00 Emergency Rekha Costa [facility] 1..840.114 350.1.13.10 4.2.7.2.686 [id number] [facility] 2023-06-21 00:00:00 2023-06-21 00:00:00 Letter (Out) MalloryEufemia [facility] 1.20.114 350.1.13.10 4.2.7.2.686 [id number] [facility] 2023-05-10 14:22:00 2023-05-10 15:28:00 Emergency X GROVER MONSON [facility] ERT [id number] [facility] 2023-05-10 14:22:00 2023-05-10 15:28:00 Emergency Grover Monson [facility] 1.2.114 350.1.13.10 4.2.7.2.686 [id number] [facility] 2023-03-19 07:27:00 2023-03-19 08:55:00 Emergency X REKHA COSTA [facility] ERT [id number] [facility] 2023-03-19 07:27:00 2023-03-19 08:55:00 Emergency Rekha Costa [facility] 1..114 350.1.13.10 4.2.7.2.686 [id number] [facility] 2022-06-18 14:16:00 2022-06-18 15:19:00 Emergency X REKHA COSTA [facility] ERT [id number] [facility] 2022-06-18 14:16:00 2022-06-18 15:19:00 Emergency Rekha Costa [facility] 1..114 350.1.13.10 4.2.7.2.686 [id number] [facility] 2022-06-18 00:00:00 2022-06-18 00:00:00 Orders Only Doctor Unassigned, [place] [facility] 1.20.114 350.1.13.10 4.2.7.2.686 [id number] [facility] 2022-05-12 09:58:00 2022-05-18 19:37:00 Inpatient EM ChrisAbel [facility] [id number] [facility] 2022-04-14 14:48:00 2022-04-14 18:15:00 [facility] [id number] 2022-04-14 14:48:00 2022-04-14 18:15:00 [facility] [id number] [facility] 2022-04-05 21:56:00 2022-04-06 01:00:00 Emergency EL ChrisDaquanndga [facility] ZENAIDA [id number] [facility] 2022-04-05 21:56:00 2022-04-06 01:00:00 Emergency [facility] [id number] [facility] 2022-03-02 14:10:00 2022-03-02 16:25:00 Emergency EM ChrisDaquanazamos [facility] ZENAIDA [id number] [facility] 2022-03-02 14:10:00 2022-03-02 16:25:00 Emergency EM Chris [facility] [id number] [facility] 2021-05-06 13:00:00 2021-05-08 13:22:00 [facility] [id number] [facility] 2021-05-06 14:52:00 2021-05-06 14:52:00 Outpatient ChrisAbel bates [facility] [id number] [facility] 2021-04-20 16:09:00 2021-04-20 19:42:00 Emergency EM ChrisDaquanndga [facility] ZENAIDA [id number] [facility] 2021-04-01 13:02:00 2021-04-01 13:39:00 Emergency EM Abel Mcgovern [facility] [id number] [facility] 2021-01-24 09:30:00 2021-01-24 09:30:00 Outpatient [facility] [id number] [facility] 2020-12-27 09:40:00 2020-12-27 09:40:00 Outpatient TOBY ARIAS [facility] [id number] [facility] 2020-11-23 00:00:00 2020-11-23 00:00:00 Letter (Out) [facility] 1.2.840.114 350.1.13.10 4.2.7.2.686 [id number] [facility] 2020-11-23 00:00:00 2020-11-23 00:00:00 Letter (Out) [facility] 1.2.840.114 350.1.13.10 4.2.7.2.686 [id number] 2020-11-22 20:20:00 2020-11-22 22:26:00 Emergency [facility] 1.2.840.114 350.1.13.10 4.2.7.2.686 [id number] [facility] 2020-11-22 20:20:00 2020-11-22 22:26:00 Emergency Yoanna Moon [facility] 1.2.840.114 350.1.13.10 4.2.7.2.686 [id number] 2020-09-07 15:52:38 2020-09-07 23:59:00 Hospital Encounter Liam Chapa [facility] 1.2.840.114 350.1.13.10 4.2.7.2.686 [id number] [facility] 2020-09-07 15:52:38 2020-09-07 23:59:00 Hospital Encounter Liam Chapa [facility] chad We[facility] 1.2.840.114 350.1.13.10 4.2.7.2.686 [id number] 2020-09-07 15:15:00 2020-09-07 15:15:00 Outpatient R [facility] [id number] [facility] 2020-09-07 14:57:36 2020-09-07 15:12:36 [facility] 1.2.840.114 350.1.13.10 4.2.7.2.686 [id number] [facility] 2020-09-07 14:57:36 2020-09-07 15:12:36 Office [facility] 1.2.840.114 350.1.13.10 4.2.7.2.686 [id number] 2020-09-07 00:00:00 2020-09-07 00:00:00 Orders Only Doctor Unassigned, [place] [facility] 1.2.840.114 350.1.13.10 4.2.7.2.686 [id number] [facility] 2020-09-06 14:30:00 2020-09-06 14:30:00 Outpatient R NILSON REED [facility] [id number] [facility] 2020-05-25 00:00:00 2020-05-25 00:00:00 Telephone Archana Mendoza [facility] 1.2.840.114 350.1.13.10 4.2.7.2.686 [id number] [facility] 2020-05-24 15:45:59 2020-05-24 16:12:06 Urgent Care Pob1, Acute Care Clinic Maia Hahn [facility] 1.2.840.114 350.1.13.10 4.2.7.2.686 [id number] [facility] 2020-05-24 15:40:00 2020-05-24 16:12:06 Outpatient R MAIA HAHN [facility] [id number] [facility] 2019-11-06 11:17:00 2019-11-06 11:17:00 Outpatient Mario Ferrer [facility] [id number] [facility] 2019-10-29 08:30:00 2019-10-29 08:30:00 Outpatient [facility]I [id number] [facility] 2019-10-20 22:55:00 2019-10-21 01:55:00 Emergency EM Mario Ferrer [facility] Z[facility] [id number] [facility] Results Test Description Test Time Test Comments Results Result Co mments Source [facility]. Metabolic Panel ([id number])2025-05-28 18:33:01* Test Item Value Reference Range Interpretation Comme nts NA (test code = 5914040286) 134 mmol/L 135-145 L K (test code = 8895368574) 4.1 mmol/L 3.5-5.0 CL (test code = 0546306092) 105 mmol/L 98-108 CO2 TOTAL (test code = 7488564735) 24 mmol/L 23-31 AGAP (test code = 4965499525) 5 2-16 BUN (test code = 3052348321) 8 mg/dL 7-23 GLUCOSE (test code = 1174213470) 72 mg/dL 70-110 CREATININE (test code = 2160-0) 0.57 mg/dL 0.50-1.04 TOTAL BILI (test code = 5354981728) 0.4 mg/dL 0.1-1.1 CALCIUM (test code = 6239321789) 8.9 mg/dL 8.6-10.6 T PROTEIN (test code = 7307105930) 6.5 g/dL 6.3-8.2 ALBUMIN (test code = 4677674190) 3.7 g/dL 3.5-5.0 ALK PHOS (test code = 6137906942) 50 U/L 34-122 ALTv (test code = 1742-6) 15 U/L 5-35 AST(SGOT) (test code = 3131790181) 18 U/L 13-40 eGFR (test code = 36971-8) 124 mL/min/1.73m2 CKD-EPI eGFR (2020). Assuming creatinine has been stable day-to-day for at least three months, the eGFR indicates Category G1 (>= 90 mL/min/1.73 m2) Lab Interpretation (test code = 88875-5) [facility]normal [facility] w [id number] 18:09:15CT ABDOMEN PELVIS W CONTRAST 05/28/2025 12:22 [...] acute osseousabnormality. Small periumbilical fat- containing hernia withoutcomplication.[facility] Hospital[facility]onin [id number] 18:04:38* Test Item Value Reference Range Interpretation Comme nts TROPONIN I (test code = 9421582001) 0.002 ng/mL <=0.034 MICHAEL (test code = [...] of biotin. Lab Interpretation (test code = 00448-7) Normal [facility]2025-[facility]07 17:50:31* Test Item Value Reference Range Interpretation Comme nts LIPASE (test code = 0468607722) 95 U/L 0-220 Lab Interpretation (test cod e = 51377-2) Normal [facility] Hospital[facility] FUNCTION PANEL (10121) (ALB,T.PRO,BILI T,BU/BC,ALT,AST,ALK PHOS)2025-05-28 17:50:31* Test Item Value Reference Range Interpretation Comme nts TOTAL BILI (test code = 0591586782) 0.5 mg/dL 0.1-1.1 BILI UNCON (test code = 7818448387) 0.4 mg/dL 0.1-1.1 BILI CONJ (test code = 2396873704) 0 mg/dL 0.0-0.3 T PROTEIN (test code = 2814502784) 7.5 g/dL 6.3-8.2 ALBUMIN (test code = 6175303564) 4.3 g/dL 3.5-5.0 ALK PHOS (test code = 0487806667) 52 U/L 34-122 ALTv (test code = 1742-6) 17 U/L 5-35 AST(SGOT) (test code = 4277228209) 21 U/L 13-40 Lab Interpretation (test cod e = 54451-8) Normal [facility] Hospital[facility]esium2025-08-07 17:50:31* Test Item Value Reference Range Interpretation Comme nts MAGNESIUM (test code = 2969184932) 1.9 mg/dL 1.7-2.4 Lab Interpretation (test cod e = 01798-0) Normal [facility] METABOLIC PANEL (NA, K, CL, CO2, GLUCOSE, BUN, CREATININE, CA)2025-05-28 17:50:10* Test Item Value Reference Range Interpretation Comme nts NA (test code = 5568029611) 138 mmol/L 135-145 K (test code = 5653401693) 4.3 mmol/L 3.5-5.0 CL (test code = 3396082096) 106 mmol/L 98-108 CO2 TOTAL (test code = 3684565639) 25 mmol/L 23-31 AGAP (test code = 7889338674) 7 2-16 BUN (test code = 9968795991) 9 mg/dL 7-23 GLUCOSE (test code = 6800532881) 77 mg/dL 70-110 CREATININE (test code = 2160-0) 0.59 mg/dL 0.50-1.04 CALCIUM (test code = 3609720863) 9.4 mg/dL 8.6-10.6 eGFR (test code = 53864-5) 123 mL/min/1.73m2 CKD-EPI eGFR (20 21). Assuming creatinine has been stable day-to-day for at least three months, the eGFR indicates Category G1 (>= 90 mL/min/1.73 m2) [facility]2025-[facility] 17:49:29* Test Item Value Reference Range Interpretation Comme nts FINN (test code = 3594991213) 85 U/L 35-110 Lab Interpretation (test cod e = 72226-4) Normal [facility] WITH [id number] 17:43:30* Test Item Value Reference Range Interpretation [...] 33.1 g/dL 31.6-35.1 RDW-SD (test code = 42835-9) 42.4 fL 39.0-49.9 RDW-CV (test code = 788-0) 12.1 % 12.0-15.5 PLT (test code = 777-3) 295 166-358 MPV (test code = 57015-6) 10.7 fL 9.5-12.9 NRBC/100 WBC (test code = 2549070612) 0 0.0-10.0 NRBC x10^3 (test code = 6792362294) See_Comment [Automated messa ge] The system which generated this result transmitted reference range: 10*3/?L. The reference range was not used to interpret this result as normal/abnormal. GRAN MAT (NEUT) % (test code = 770-8) 56.7 % IMM GRAN % (test code = 4155013999) 0.5 % LYMPH % (test code = 736-9) 33.1 % MONO % (test code = 5905-5) 6.6 % EOS % (test code = 713-8) 2.1 % BASO % (test code = 706-2) 1 % GRAN MAT x10^3(ANC) (test code = 1688977632) 5.66 10*3/uL 1.88-7.09 IMM GRAN x10^3 (test code = 9033155114) 0.05 10*3/uL 0.00-0.06 LYMPH x10^3 (test code = 731-0) 3.31 10*3/uL 1.32-3.29 H MONO x10^3 (test code = 742-7) 0.66 10*3/uL 0.33-0.92 EOS x10^3 (test code = 711-2) 0.21 10*3/uL 0.03-0.39 BASO x10^3 (test code = 704-7) 0.1 10*3/uL 0.01-0.07 H Lab Interpretation (test code = 63168-1) Abnormal [facility] [id number] 17:03:00* Test Item Value Reference Range Interpretation Comme nts POCT PREG (test code = 1605) Negative On board controls acceptable with C Line (test code = 3574) Yes POCT PREG LOT # (test code = 3575) [id number] POCT PREG TEST DATE ( test code = 3576) Lab Interpretation (test cod e = 62417-0) Normal [facility]OL[facility] (47103)2024-08-05 16:32:06* Test Item Value Reference Range Interpretation Comme nts NA (test code = 8385423373) 137 mmol/L 135-145 K (test code = 7542330327) 4.0 mmol/L 3.5-5.0 CL (test code = 0113533849) 105 mmol/L 98-108 CO2 TOTAL (test code = 5347585152) 26 mmol/L 23-31 AGAP (test code = 5516071772) 6 2-16 BUN (test code = 2985296560) 7 mg/dL 7-23 GLUCOSE (test code = 5515870233) 89 mg/dL 70-110 CREATININE (test code = 2160-0) 0.61 mg/dL 0.50-1.04 TOTAL BILI (test code = 7680155986) 0.8 mg/dL 0.1-1.1 CALCIUM (test code = 9937559430) 9.2 mg/dL 8.6-10.6 T PROTEIN (test code = 1971467229) 7.6 g/dL 6.3-8.2 ALBUMIN (test code = 3905302689) 4.4 g/dL 3.5-5.0 ALK PHOS (test code = 9690259613) 59 U/L 34-122 ALTv (test code = 1742-6) 16 U/L 5-35 AST(SGOT) (test code = 5022161439) 40 U/L 13-40 eGFR (test code = 01580-8) 122.8 mL/min/1.73m2 CKD-EPI eGFR (20 21). Assuming creatinine has been stable day-to-day for at least three months, the eGFR indicates Category G1 (>= 90 mL/min/1.73 m2) [facility] 16:31:45* Test Item Value Reference Range Interpretation Comme nts LIPASE (test code = 0721715021) 104 U/L 0-220 Lab Interpretation (test cod e = 35534-8) Normal [facility] WITH [id number] 16:11:25* Test Item Value Reference Range Interpretation [...] 33.8 g/dL 31.6-35.1 RDW-SD (test code = 86471-6) 40.7 fL 39.0-49.9 RDW-CV (test code = 788-0) 11.7 % 12.0-15.5 L PLT (test code = 777-3) 334 166-358 MPV (test code = 45231-2) 10.4 fL 9.5-12.9 NRBC/100 WBC (test code = 9848931341) 0.0 0.0-10.0 NRBC x10^3 (test code = 3542028842) See_Comment [Automated messa ge] The system which generated this result transmitted reference range: 10*3/?L. The reference range was not used to interpret this result as normal/abnormal. GRAN MAT (NEUT) % (test code = 770-8) 63.5 % IMM GRAN % (test code = 4474209168) 0.40 % LYMPH % (test code = 736-9) 28.0 % MONO % (test code = 5905-5) 6.2 % EOS % (test code = 713-8) 1.3 % BASO % (test code = 706-2) 0.6 % GRAN MAT x10^3(ANC) (test code = 5000169727) 7.24 10*3/uL 1.88-7.09 H IMM GRAN x10^3 (test code = 8019664107) 0.05 10*3/uL 0.00-0.06 LYMPH x10^3 (test code = 731-0) 3.20 10*3/uL 1.32-3.29 MONO x10^3 (test code = 742-7) 0.71 10*3/uL 0.33-0.92 EOS x10^3 (test code = 711-2) 0.15 10*3/uL 0.03-0.39 BASO x10^3 (test code = 704-7) 0.07 10*3/uL 0.01-0.07 Lab Interpretation (test code = 81350-0) Abnormal [facility] [id number] 15:47:00* Test Item Value Reference Range Interpretation Comme nts POCT PREG (test code = 1605) Negative On board controls acceptable with C Line (test code = 3574) Yes POCT PREG LOT # (test code = 3575) [id number] POCT PREG TEST DATE ( test code = 3576) 07-26-2025 Lab Interpretation (test cod e = 76053-9) Normal [facility]. METABOLIC PANEL (18544)2022-06-18 19:48:09* Test Item Value Reference Range Interpretation Comme nts NA (test code = 6374968130) 142 mmol/L 135-145 K (test code = 4628299186) 4.0 mmol/L 3.5-5 CL (test code = 2886415069) 110 mmol/L 98-108 H CO2 TOTAL (test code = 2108116178) 26 mmol/L 23-31 AGAP (test code = 0734875507) 2-16 BUN (test code = 8704654522) 10 mg/dL 7-23 GLUCOSE (test code = 7609029267) 85 mg/dL 70-110 CREATININE (test code = 7079065326) 0.61 mg/dL 0.5-1.04 TOTAL BILI (test code = 6762698590) 0.2 mg/dL 0.1-1.1 CALCIUM (test code = 7088714135) 8.9 mg/dL 8.6-10.6 T PROTEIN (test code = 7437770063) 6.5 g/dL 6.3-8.2 ALBUMIN (test code = 7651914179) 4.0 g/dL 3.5-5 ALK PHOS (test code = 6982201626) 88 U/L 34-122 ALTv (test code = 1742-6) 31 U/L 5-35 AST(SGOT) (test code = 0466386723) 34 U/L 13-40 eGFR (test code = 4810899286) mL/min/1.73m2 MICHAEL (test code = MICHAEL) Association [...] imaging tests). Lab Interpretation (test code = 13587-2) Abnormal [facility]22-[facility] 19:48:09* Test Item Value Reference Range Interpretation Comme nts LIPASE (test code = 2982083495) 138 U/L 0-220 Lab Interpretation (test cod e = 66854-7) Normal [facility] WITH [id number] 19:40:05* Test Item Value Reference Range Interpretation [...] g/dL 31.6-35.1 L RDW-SD (test code = 17366-8) 45.1 fL 39-49.9 RDW-CV (test code = 788-0) 14.1 % 12-15.5 PLT (test code = 777-3) See_Comment [Automated messa ge] The system which generated this result transmitted reference range: 166 - 358 10*3/?L. The reference range was not used to interpret this result as normal/abnormal. MPV (test code = 40462-2) 10.2 fL 9.5-12.9 NRBC/100 WBC (test code = 7140008869) See_Comment [Automated [facility] ssage] The system which generated this result transmitted reference range: 0.0 - 10.0 /100 WBCs. The reference range was not used to interpret this result as normal/abnormal. NRBC x10^3 (test code = 6883749932) See_Comment [Automated messa ge] The system which generated this result transmitted reference range: 10*3/?L. The reference range was not used to interpret this result as normal/abnormal. GRAN MAT (NEUT) % (test code = 770-8) 54.5 % IMM GRAN % (test code = 6314335499) 0.20 % LYMPH % (test code = 736-9) 26.9 % MONO % (test code = 5905-5) 11.2 % EOS % (test code = 713-8) 6.1 % BASO % (test code = 706-2) 1.1 % GRAN MAT x10^3(ANC) (test code = 3067621690) 3.61 10*3/uL 1.88-7.09 IMM GRAN x10^3 (test code = 8288029910) 0-0.06 LYMPH x10^3 (test code = 731-0) 1.78 10*3/uL 1.32-3.29 MONO x10^3 (test code = 742-7) 0.74 10*3/uL 0.33-0.92 EOS x10^3 (test code = 711-2) 0.40 10*3/uL 0.03-0.39 H BASO x10^3 (test code = 704-7) 0.07 10*3/uL 0.01-0.07 Lab Interpretation (test code = 87114-5) [id number]* Test Item Value Reference Range Interpretation Comme nts POCT PREG (test code = 1605) Negative On board controls acceptable with C Line (test code = 3574) Present POCT PREG LOT # (test code = 3575) [id number] POCT PREG TEST DATE ( test code = 3576) 08-21-2023 Lab Interpretation (test cod e = 13374-6) Normal [facility] W/AUTO [id number] 10:11:00* Test Item Value Reference Range Interpretation Comme [facility] WHITE BLOOD CELL (test code = WBC) [...] = PLTMR) NORMAL NORMAL AG HEPATITIS B [id number] 21:13:00* Test Item Value Reference Range Interpretation Comme nts AG HEPATITIS B SURFACE (test code = HBSAG) NONREACTIVE NONREACTIVE AB HEPATITIS C [id number] 21:13:00* Test Item Value Reference Range Interpretation Comme nts AB HEPATITIS C (test code = HCVAB) NONREACTIVE NONREACTIVE A SIGNAL TO CUTOFF (test code = CUTOFF) 0.04 <0.80 N AB [id number] 21:13:00* Test Item Value Reference Range Interpretation Comme nts AB TREPONEMA (test code = TREPAB) NONREACTIVE NONREACTIVE COMPREHENSIVE METABOLIC [id number] 20:12:00* Test Item Value Reference Range Interpretation [...] ALKP) 129 units/L 46-116 H CBC W/AUTO [id number] 19:46:00* Test Item Value Reference Range Interpretation [...] code = BA#) 0.1 K/mm3 BILE ACIDS [id number] 09:10:00* Test Item Value Reference Range Interpretation Comme nts BILE ACIDS TOTAL (test code = BILEACT) 2.5 umol/L 0.0-10.0 Performed At: [address] [id number] Sanjai MD Ph:[phone] RUPTURE OF [id number] 15:52:00* Test Item Value Reference Range Interpretation Comme nts RUPTURE OF MEMBRANES (test c ode = ROM) NON-RUPTURED COVID 19 Asymptomatic IH [id number] 11:02:00* Test Item Value Reference Range Interpretation [...] testsfor detection and/or diagnosis of COVID-19 under Xsrucnj388(b)(1) of the Act, 21 U.S.C. 360bbb-3(b)(1), unless theauthorization is terminated or revoked sooner. URINALYSIS [id number] 10:51:00* Test Item Value Reference Range Interpretation [...] NONE SEEN URINE SAMPLE: CLEAN CATCHCOMPREHENSIVE METABOLIC [id number] 12:46:00* Test Item Value Reference Range Interpretation [...] = ALKP) 138 units/L 46-116 H URINALYSIS [id number] 12:32:00* Test Item Value Reference Range Interpretation [...] NONE SEEN URINE SAMPLE: CLEAN CATCHCBC W/AUTO [id number] 12:28:00* Test Item Value Reference Range Interpretation [...] code = PLTMR) NORMAL NORMAL RUPTURE OF [id number] 17:27:00* Test Item Value Reference Range Interpretation Comme nts RUPTURE OF MEMBRANES (test c ode = ROM) NON-RUPTURED COVID 19 Asymptomatic IH [id number] 17:26:00* Test Item Value Reference Range Interpretation [...] testsfor detection and/or diagnosis of COVID-19 under Gntnmwd228(b)(1) of the Act, 21 U.S.C. 360bbb-3(b)(1), unless theauthorization is terminated or revoked sooner. URINALYSIS [id number] 14:34:00* Test Item Value Reference Range Interpretation [...] arrival if delivery is not imminentCB W/AUTO [id number] 09:02:00* Test Item Value Reference Range Interpretation [...] code = PLTMR) NORMAL NORMAL RUPTURE OF [id number] 03:32:00* Test Item Value Reference Range Interpretation Comme nts RUPTURE OF MEMBRANES (test c ode = ROM) RUPTURED AB HIV 1 20:55:00* Test Item Value Reference Range Interpretation Comme nts AB HIV 1 2 (test code = CXH53FZ) NONREACTIVE INDEX NONREACTIVE IS CONSENT FORM SIGNED FOR HIV TESTING? NAG HEPATITIS B [id number] 20:55:00* Test Item Value Reference Range Interpretation Comme nts AG HEPATITIS B SURFACE (test code = HBSAG) NON REACTIVE INDEX NonReactive IS CONSENT FORM SIGNED FOR HIV TESTING? NAG HEPATITIS B [id number] 20:55:00* Test Item Value Reference Range Interpretation Comme nts AG HEPATITIS B SURFACE (test code = HBSAG) NON REACTIVE INDEX NonReactive Previously reported result: NONREACTIVE INDEXEdited by: HORACIO on 05/06/21:2054HBSAG prev. reported as:NONREACTIVE . . IS CONSENT FORM SIGNED FOR HIV TESTING? NAB HEPATITIS C [id number] 20:55:00* Test Item Value Reference Range Interpretation Comme nts AB HEPATITIS C (test code = HCVAB) NON REACTIVE INDEX NON REACT. A Previously reported result: NONREACTIVE INDEXEdited by: HORACIO on 05/06/21:2054HCVAB prev. reported as:NONREACTIVE . . SIGNAL TO CUTOFF (test code = CUTOFF) <0.02 <0.80 N IS CONSENT FORM SIGNED FOR HIV TESTING? NAB [id number] 20:55:00* Test Item Value Reference Range Interpretation Comme nts AB TREPONEMA (test code = TREPAB) NONREACTIVE NONREACTIVE IS CONSENT FORM SIGNED FOR HIV TESTING? NAB HIV 1 20:55:00* Test Item Value Reference Range Interpretation Comme nts AB HIV 1 2 (test code = DGY43TM) NONREACTIVE INDEX NONREACTIVE A IS CONSENT FORM SIGNED FOR HIV TESTING? NAB HEPATITIS [id number] 20:55:00* Test Item Value Reference Range Interpretation Comme nts AB HEPATITIS C (test code = HCVAB) NON REACTIVE INDEX NON REACT. IS CONSENT FORM SIGNED FOR HIV TESTING? NAG HEPATITIS B [id number] 15:32:00* Test Item Value Reference Range Interpretation Comme nts AG HEPATITIS B SURFACE (test code = HBSAG) NONREACTIVE NONREACTIVE IS CONSENT FORM SIGNED FOR HIV TESTING? NAB HEPATITIS C [id number] 15:32:00* Test Item Value Reference Range Interpretation Comme nts AB HEPATITIS C (test code = HCVAB) NONREACTIVE NONREACTIVE SIGNAL TO CUTOFF (test code = CUTOFF) <0.02 <0.80 N IS CONSENT FORM SIGNED FOR HIV TESTING? NAB [id number] 15:32:00* Test Item Value Reference Range Interpretation Comme nts AB TREPONEMA (test code = TREPAB) NONREACTIVE NONREACTIVE IS CONSENT FORM SIGNED FOR HIV TESTING? NAB HIV 1 15:32:00* Test Item Value Reference Range Interpretation Comme nts AB HIV 1 2 (test code = RUH21SK) NONREACTIVE IS CONSENT FORM SIGNED FOR HIV TESTING? NCOMPREHENSIVE METABOLIC [id number] 14:12:00* Test Item Value Reference Range Interpretation [...] ALKP) 149 units/L 46-116 H CBC W/AUTO [id number] 13:39:00* Test Item Value Reference Range Interpretation [...] code = PLTMR) NORMAL NORMAL COMPREHENSIVE METABOLIC [id number] 18:42:00* Test Item Value Reference Range Interpretation [...] 125 units/L 46-116 H HEMOL. NOTIFIED CJURINALYSIS [id number] 17:37:00* Test Item Value Reference Range Interpretation [...] NONE SEEN URINE SAMPLE: CLEAN CATCHCBC W/AUTO [id number] 17:14:00* Test Item Value Reference Range Interpretation [...] PLTMR) NORMAL NORMAL - US PREG AFTER [id number] 11:21:00 [facility] : 1990 Sex: F Patient Name: SHARYN RUSSELL Unit No: [id number] EXAMS: CPT CODE: [id number] US PREG AFTER TRI 17170 [facility] [address] [place], [place] [address] OBSTETRICAL ULTRASOUND REPORT - Pat. Name: SHARYN RUSSELL. No: [id number] Study Date: 01/04/2021 10:00am , Age: 11 1990, 30 Pregnancies: 3,Para 1 LMP: 08/13/2020 GA by LMP: 20w4d GA by US: 20w0d GA Selected: 20w4d (LMP) DANNA: 05/20/2021 Referring MD: ABEL MCGOVERN Stitch Burnisher: Harriet Montiel RDMS, RVT CPT4: [id number] Admitting MD: ABEL MCGOVERN Hist/Ind: SCAN 1 ANATOMY MEASUREMENTS AGE GROWTH EVALUATION Measurement GA Range Srce %for GA Ratios ----- ---- ------- BPD 4.6 cm 19w6d (25o1d-04p8s) Hadl BPD 17% FL/BPD 0.72 HC 17.6 cm 20w0d (18w3d- 21w4d) Hadl HC 33% FL/AC 0.22 APD 4.8 cm APD HC/AC 1.16 (1.06 - 1.24) TAD 4.9 cm TAD CI 0.76 (0.70 - 0.86) AC 15.2 cm 20w1d (13v0r-12j5n) Hadl AC 40% FL 3.3cm 20w0d (01c7z-77m6x) Hadl FL 36% HL 3.1 cm 20w2d (83i6f-94i5g) Monster HL 45% GA for sonogram 20w0d (93i3f-57p7u) Weight Estimate: based on (BPD,HC,AC,FL) Hadlock Weight: [...] movements seen Four chamber heart observed [facility] NAME: SHARYN RUSSELL Radiology Department PHYS: Abel Plummer MD [address] : 1990 AGE: 30 SEX: [place] [address] LOC: F.RAD PHONE #: [phone] EXAM DATE: 01/04/2021 STATUS: REG CLI FAX #: [phone] RAD NO: Page 1 Signed Report (CONTINUED) Patient Name: SHARYN RUSSELL Unit No: [id number] EXAMS: CPT CODE: [id number] US PREG AFTER 1ST TRI 59622 (Continued) Left ventricular outflow tract (LVOT) seen Right ventricular outflow tract (RVOT) seen Regular cardiac rhythm observed Normal intracranial anatomy seen face and nasal bone seenUmbilical cord insertion in fetus seen stomach, Renal Fossa, Bladder and Spine seen Three vessel umbilical cord noted All four extremities observed abnormalities observed: None seen at this exam Placental location: Anterior Placental maturity : Grade 1 There is no evidence of placenta previa. Amniotic fluid volume is normal. Uterus and adnexa: No significant abnormality is seen. [facility] the [facility]. Israel Velasquez M.D. Electronic Signature 01/04/2021 11:21am at 1121 Reported and signed by: Kelley Velasquez MD CC: Abel Mcgovern MD Technologist: Harriet Montiel RDMS, T Probe: Trnscrbd D/ (1121) [email or web address] Orig Print D/T: S: 01/04/2021 (1121) [facility] NAME: SHARYN RUSSELL Radiology Department PHYS: Abel Plummer MD [address] : 1990 AGE: 30 SEX: F [place], [place] [address] LOC: KoleRAD PHONE #: [phone] EXAM DATE: 01/04/2021 STATUS: REG CLI FAX #: [phone] RAD NO: Page 2 Signed Report Patient Name: SHARYN RUSSELL Unit No: [id number] EXAMS: CPT CODE: [id number] US PREG AFTER 1ST TRI 50954 (Continued) [facility] NAME: SHARYN RUSSELL Radiology Department PHYS: Abel Plummer MD [address] : 1990 AGE: 30 SEX: F [place], [place] [address] LOC: MARLENA PHONE #: [phone] EXAM DATE: 01/04/2021 STATUS: REG CLI FAX #: [phone] RAD NO: Page 3 Signed [id number] 04:03:00* Test Item Value Reference Range Interpretation Comme nts APPEARANCE (test code = 4807092450) Hazy Clear A COLOR (test code = 8487754807) Yellow Yellow PH (test code = 4046820095) 4.8-8.0 SP GRAVITY (test code = 5492768432) 1.003-1.030 GLU U QUAL (test code = 1053027284) Normal Normal BLOOD (test code = 7290682105) Negative Negative KETONES (test code = 7484347795) Negative Negative PROTEIN (test code = 2887-8) Negative Negative UROBILIN (test code = 5517329735) Normal Normal BILIRUBIN (test code = 7506422580) Negative Negative NITRITE (test code = 0408272247) Negative Negative LEUK MARVIN (test code = 6693572715) 25/uL Negative A RBC/HPF (test code = 9148752384) See_Comment [Automated Snapfisha ge] The system which generated this result transmitted reference range: 0 - 3 HPF. The reference range was not used to interpret this result as normal/abnormal. WBC/HPF (test code = 6888178333) See_Comment [Automated Snapfisha ge] The system which generated this result transmitted reference range: 0 - 5 HPF. The reference range was not used to interpret this result as normal/abnormal. BACTERIA (test code = 2144769343) Few Negative A MUCOUS (test code = 8447570600) Slight Negative LPF A SQ EPITH (test code = 0977628319) HPF Lab Interpretation (test code = 43277-7) [facility] - [facility]UEN[facility] A & B DIRECT [id number] 03:17:00* Test Item Value Reference Range Interpretation Comme nts Influenza A (test code = 74443-8) Negative Negative Influenza B (test code = 21306-7) Negative Negative Lab Interpretation (test cod e = 88656-2) Normal [facility] GROUP [id number] 03:15:00* Test Item Value Reference Range Interpretation Comme nts Streptococcus pyogenes (grou p A) antigen (test code = 64462-1) Negative Negative Lab Interpretation (test cod e = 11019-7) Normal [facility]- MRI LW JNT W/O CONT [id number] 09:09:00 [facility] : 1990 Sex: F Patient Name: SAHRYN RUSSELL Unit No: [id number] EXAMS: CPT CODE: [id number] MRI JNT W/O CONT [id number] MRI OF THE RIGHT KNEE DIAGNOSIS: 1. The patient is status post anterior cruciate ligament reconstruction and the graft is intact. 2. Truncation of the free edge of the posterior horn of the lateral meniscus consistent with postsurgical change versus tear. There is also cyst formation abuttingthe anterior root of the lateral meniscus with [...] joint fluid is seen without evidence for aloose body. at 0909 Reportedand signed by: Mariano Noguera MD CC: Onur Cantu MD Technologist: Maikel Hodges,RT(R) Transcribed D/ (908) [facility]: SHARYN RUSSELL [address] [facility] PHYS: Onur Morrow Yovani : 1990 AGE: 29 SEX: F [place] [address] LOC: Y.MRI PHONE #: [phone] EXAM DATE: 09/13/2020 STATUS: REG CLI FAX#: [phone] RAD #: D/C DT PAGE 1 Signed Report Patient Name: SHARYN RUSSELL Unit No: [id number] EXAMS: CPT CODE: [id number] MRI LW JNT W/[place] [address] <Continued> Orig Print D/T: S: 09/13/2020 (911) [facility] NAME: SHARYN RUSSELL [address] [facility] PHYS: Onur Morrow : 1990 AGE: 29 SEX: F [place] [address] LOC: Y.MRI PHONE #: [phone] EXAM DATE: 09/13/2020 STATUS: REG CLI FAX #: [phone] RAD #: D/C DT PAGE 2 Signed ReportHGB [id number] 04:41:00* Test Item Value Reference Range Interpretation Comme nts HEMOGLOBIN (test code = HGB) 10.2 g/dL 10.7-13.9 L HEMATOCRIT (test code = HCT) 30.6 % 32.1-42.1 L AB HIV 1 16:06:00* Test Item Value Reference Range Interpretation Comme nts AB HIV 1 2 (test code = ZEG82ZB) Nonreactive NonReactive It is recognized that currently available assays for thedetection of antibodies to HIV-1 and/or HIV-2 may notdetect all infected individuals. A negative test result doesnot exclude the possibility of exposure to or infection withHIV. HIV antibodies may be undetectable in some stages ofthe infection and in some clinical conditions. IS CONSENT FORM SIGNED FOR HIV TESTING? YAG HEPATITIS B [id number] 16:06:00* Test Item Value Reference Range Interpretation Comme nts AG HEPATITIS B SURFACE (test code = HBSAG) NONREACTIVE NONREACTIVE IS CONSENT FORM SIGNED FOR HIV TESTING? CALLY HEPATITIS C [id number] 16:06:00* Test Item Value Reference Range Interpretation Comme nts AB HEPATITIS C (test code = HCVAB) NONREACTIVE NONREACTIVE SIGNAL TO CUTOFF (test code = CUTOFF) <0.02 <0.80 N IS CONSENT FORM SIGNED FOR HIV TESTING? MANJITB [id number] 16:06:00* Test Item Value Reference Range Interpretation Comme nts AB TREPONEMA (test code = TREPAB) NONREACTIVE NONREACTIVE IS CONSENT FORM SIGNED FOR HIV TESTING? CALLY HIV 1 16:06:00* Test Item Value Reference Range Interpretation Comme nts AB HIV 1 2 (test code = YQQ83AO) Nonreactive NonReactive It is recognized that currently available assays for thedetection of antibodies to HIV-1 and/or HIV-2 may notdetect all infected individuals. A negative test result doesnot exclude the possibility of exposure to or infection withHIV. HIV antibodies may be undetectable in some stages ofthe infection and in some clinical conditions. IS CONSENT FORM SIGNED FOR HIV TESTING? YAG HEPATITIS B [id number] 20:59:00* Test Item Value Reference Range Interpretation Comme nts AG HEPATITIS B SURFACE (test code = HBSAG) NONREACTIVE NONREACTIVE IS CONSENT FORM SIGNED FOR HIV TESTING? CALLY HEPATITIS C [id number] 20:59:00* Test Item Value Reference Range Interpretation Comme nts AB HEPATITIS C (test code = HCVAB) NONREACTIVE NONREACTIVE SIGNAL TO CUTOFF (test code = CUTOFF) <0.02 <0.80 N IS CONSENT FORM SIGNED FOR HIV TESTING? MANJITB [id number] 20:59:00* Test Item Value Reference Range Interpretation Comme nts AB TREPONEMA (test code = TREPAB) NONREACTIVE NONREACTIVE IS CONSENT FORM SIGNED FOR HIV TESTING? MANJITB HIV 1 20:59:00* Test Item Value Reference Range Interpretation Comme nts AB HIV 1 2 (test code = WAZ20IU) NONREACTIVE IS CONSENT FORM SIGNED FOR HIV TESTING? YAG HEPATITIS B [id number] 20:17:00* Test Item Value Reference Range Interpretation Comme nts AG HEPATITIS B SURFACE (test code = HBSAG) NONREACTIVE NONREACTIVE IS CONSENT FORM SIGNED FOR HIV TESTING? YAB HEPATITIS C [id number] 20:17:00* Test Item Value Reference Range Interpretation Comme nts AB HEPATITIS C (test code = HCVAB) NONREACTIVE SIGNAL TO CUTOFF (test code = CUTOFF) <0.80 IS CONSENT FORM SIGNED FOR HIV TESTING? YAB [id number] 20:17:00* Test Item Value Reference Range Interpretation Comme nts AB TREPONEMA (test code = TREPAB) NONREACTIVE NONREACTIVE IS CONSENT FORM SIGNED FOR HIV TESTING? YAB HIV 1 20:17:00* Test Item Value Reference Range Interpretation Comme nts AB HIV 1 2 (test code = QWK36CD) NONREACTIVE IS CONSENT FORM SIGNED FOR HIV TESTING? YCBC W/AUTO [id number] 19:51:00* Test Item Value Reference Range Interpretation [...] code = PLTMR) NORMAL NORMAL AMNISURE (ROM) [id number] 23:28:00* Test Item Value Reference Range Interpretation Comme nts AMNISURE (ROM) TEST (test co de = AMNI) NON-RUPTURED NON-RUPTURE : *Specimen Comment: LDO Alanis QC OK? YES- US [facility] [id number] 10:01:00Patient Name: SHARYN RUSSELL Unit No: [id number] EXAMS: CPT CODE: [id number] US [facility] [id number] [facility] [address] [place] [address] OBSTETRICAL ULTRASOUND REPORT ----- Pat. Name: SHARYN RUSSELL Pat. No: [id number] Study Date: 10/29/2019 9:11am , Age: 13 1990, 28 LMP: 01/16/2019 GA by LMP: 40w6d GA by 1st: 40w6d GA by US: 36w3d GA Selected: 39w6d (From Known E) DANNA: 10/30/2019 Referring MD: MARIO FERRER Stitch Burnisher: Julia Sol RDMS CPT4: USPREGFU Admitting MD: MARIO FERRER Hist/Ind: SCAN 2 FU GROWTH MEASUREME NTS AGE GROWTH EVALUATION Measurement GA Range Srce %for GA Ratios ----- ---- ------- BPD 8.6 cm 35w1d (13d2x-58s5l) Hadl BPD <05 FL/BPD 0.85 (0.71 - 0.87) HC 32.5 cm 36w2d (00p9z-96c1v) Hadl HC <05 FL/AC 0.22 (0.20 - 0.24) APD 10.2 cm APD HC/AC 0.97 (0.89 - 1.08) TAD 11.1 cm TAD CI 0.77 (0.70 - 0.86) AC 33.5 cm 37w4d (23v8b-79j 1d) Hadl AC 10% FL 7.3 cm 37w2d (00k6o-99y8q) Hadl FL 12% HL 6.2 cm 36w0d (43m7s-48l5s) Monster HL <05 GA for sonogram 36w3d (76u5r-84d4s) Weight Estimate: based on (BPD,HC,AC,FL) Hadlock Weight: 3086 gm (7804-3240) Hadlo : 6lbs, 12oz Normal: 3264 gm (2732-5414) Brenn Wt% 36% for 39.9 wks Heart [...] normal growth motion and organs seen: [facility] NAME: SHARYN RUSSELL Radiology Department PHYS: Mario Mccullough III, MD [address] : 1990 AGE: 29 SEX: [place] [address] LOC: MARLENA PHONE #: [phone] EXAM DATE: 10/29/2019 STATUS: REG CLI FAX #: [phone] RADNO: Page 1 Signed Report (CONTINUED) Patient Name: SHARYN RUSSELL Unit No: [id number] EXAMS: CPTCODE: [id number] [place] [address] (Continued) somatic activity observed body and limb [...] Orig Print D/T: S: 10/29/2019 (1001) [facility] NAME: RUSSELLSHARYN Radiology Department PHYS: Mario Saunders III, MD [address] : 1990 AGE: 29 SEX: F [place] [address] LOC: Kole[facility] PHONE #: [phone] EXAMDATE: 10/29/2019 STATUS: REG CLI FAX #: [phone] RAD NO: Page 2 Signed Report Patient Name: SHARYN RUSSELL Unit No: [id number] EXAMS: CPT CODE: [id number] [place] [address] (Continued) [facility] NAME: DREWSHARYN Radiology Department PHYS: Mario Saunders III, MD [address] : 1990 AGE: 29 SEX: F [place] [address] LOC: [facility] PHONE #: [phone] EXAM DATE: 10/29/2019 STATUS: REG CLI FAX #: [phone] RAD NO: Page3 Signed Report- US PREG AFTER 1ST [id number] 12:18:00Patient Name: SHARYN RUSSELL Unit No: [id number] EXAMS: CPT CODE: [id number] US PREG AFTER 1ST TRI [address] [facility] [address] [place], [place] [address] OBSTETRICAL ULTRASOUND REPORT ------- Pat. Name: SHARYN RUSSELL Pat. No:[id number] Study Date: 06/09/2019 10:46am , Age: 13 1990, LMP: 01/16/2019 GA by LMP: 68x2xPT by US: 18w6d GA Selected: 20w4d (LMP) DANNA: 10/23/2019 Referring MD: Nabil Schmitt Stitch Burnisher: Julia Sol RDMS CPT4: [id number] Admitting MD: MARIO FERRER Hist/Ind: SCAN 1 ANATOMY SCAN/DATES --- MEASUREMENTS AGE GROWTH EVALUATION Measurement GA Range Srce %for GA Ratios ----- ---- ------- BPD 4.2 cm 18w4d (51y1l-57u1j) Hadl BPD <05 FL/BPD 0.71 HC 16.2 cm 18w6d (99r6i-04b9y) Hadl HC <05 FL/AC 0.22 APD 4.2 cm APD HC/AC 1.18 (1.06 - 1.24) TAD 4.5 cm TAD CI 0.76 (0.70 - 0.86) AC 13.7 cm 18w6d (01z4b-13e7e) Hadl AC 9% FL 3.0 cm 18w6d (22p7f-00j4r) Hadl FL13% HL 2.9 cm 19w3d (39p6l-74g0d) Monster HL 31% GA for sonogram 18w6d (41d4u-74d9j) Weight Estimate: based on (BPD,HC,AC,FL) Hadlock Weight: [...] seen Three vessel umbilical cord noted [facility] NAME: SHARYN RUSSELL Radiology Department PHYS: Mario Saunders III, MD [address] : 1990 AGE: 28 SEX: F [place], [place] [address] LOC: [facility]ole[facility] PHONE #: [phone] EXAM DATE: 06/09/2019 STATUS: REG CLI FAX #: [phone] RAD NO: Page 1 Signed Report (CONTINUED) Patient Name: SHARYN RUSSELL Unit No: [id number] EXAMS: CPT CODE: [id number] US PREG AFTER 1ST TRI 65170 (Continued) Fetalabnormalities observed: None seen at this exam Placental [...] MD Technologist:Julia Sol RDMS Probe: Trnscrbd D/ (1218) t.SDR.CER Orig Print D/T: S: 06/09/2019(1218) [facility] NAME: SHARYN RUSSELL Radiology Department PHYS: Mario Saunders III, MD [address] [place] : 1990 AGE: 28 SEX: F [place] [address] LOC: [facility] PHONE #: [phone] EXAM DATE: 06/09/2019 STATUS: REG CLI FAX #: [phone] RAD NO: Page 2 Signed Report Patient Name: SHARYN RUSSELL Unit No: [id number] EXAMS: CPT CODE: [id number] USPREG AFTER TRI 01990 (Continued) [facility] NAME: DREWSHARYN Christine Radiology Department PHYS: Mario Saunders III, MD [address] [place] : 1990 AGE: 28 SEX: F [place] [address] LOC: [facility] PHONE #: [phone] EXAM DATE: 06/09/2019 STATUS: REG CLI FAX #: [phone] RAD NO: Page 3 Signed Report Notes [...] distress. No ataxia noted. Shima Rodriguez RN [facility] 2025-05-28 11:15:27 Sharyn Osman is a 34 year old female arrived to ED via personal means with CC of severe Right lower abdominal pain with N/V since 929 today. Gayatri Bettencourt RN [facility] 2024-08-05 12:57:45 Pt given printed and verbal [...] in no apparent distress, Angela Cerrato RN [facility] 2024-08-05 10:37:26 Periumbilical pain that started last night. States she has to "pull my knees up and push in" to decrease pain. GT Bridgette Saleh RN [facility] 2023-06-21 14:02:04 Formatting of this n ote might be different from the original. Pt discharged home. Given all education and information regarding care/management; fever control; and follow up importance. Also informed of my chart results . Pt verbalized understanding. Alert and ambulatory to pov with family. Azucena Gonzalez RN [facility] 2023-06-21 13:28:27 Formatting of this n ote might be different from the original. Patient has URI symptoms that started today. Been around somebody with covid. Kodak Lemos RN [facility] 2023-06-21 13:20:00 Formatting of this n ote is different from the original. [facility] Emergency Department Note Patient Name: Sharyn Russell Date of : 1990 32 year old female Treatment Room: [place] [address] Primary Care Physician: PATIENT DOES NOT HAVE [...] She can follow-up with results on the VOSS cassy. Recommend she is qnxu-ofv-gyisrvh cough and cold medications as needed for [...] signed by: Rekha Costa DO 06/21/23 1341 [facility] 2023-05-10 15:26:20 Formatting of this n ote [...] in no apparent distress, Ryanne Hwang RN [facility] 2023-05-10 15:24:26 Formatting of this n ote might be different from the original. Ambulatory steady gait to restroom [facility] 2023-05-10 14:18:38 Formatting of this n ote might be different from the original. Patient CO of left eye pain/pressure starting today, patient left eye is red and states her vision is a little blurry. Patient also CO of electric shock feeling starting 2 days ago on the right side of her face and a headache. Marc Morales RN [facility] 2022-05-18 18:31:00 [facility] OB Disch REPORT#:[id number] REPORT STATUS: Signed DATE:05/18/22 TIME: 1830 PATIENT: SHARYN RUSSELL UNIT #: [id number] ROOM/BED: [address] : [birth year] AGE: 31 SEX: F [...] No Refills Prescriptions: e-prescribe at 1833 RPT #:[id number] END OF REPORT [facility] 2022-05-17 09:16:00 [facility] OB Postpart Progr Note REPORT#:[id number] REPORT STATUS: Signed DATE:05/17/22 TIME: 915 PATIENT: SHARYN RUSSELL UNIT #: [id number] ROOM/BED: [address] : [birth year] AGE: 31 SEX: F [...] progress Plan: routine care at 0918 RPT #:[id number] END OF REPORT [facility] 2022-05-16 08:27:00 [facility]) OB Postpart Progr Note REPORT#:[id number] REPORT STATUS: Signed DATE:05/16/22 TIME: 826 PATIENT: SHARYN RUSSELL UNIT #: [id number] ROOM/BED: [address] : [birth year] AGE: 31 SEX: F [...] (Auto) (14.5 - 29.7 %) 10.8 L [place] % (Auto) (3.6 - 10.2 %) 9.1 Eos % (Auto) (0.0 - 3.0 %) 0.0 Baso % (Auto) (0.1 - 0.9 %) 0.3 Neut # (Auto) (K/mm3) 14.6 Lymph # (Auto) (K/mm3) 2.0 [place] # (Auto) (K/mm3) 1.7 Eos # (Auto) (K/mm3) 0 Baso # (Auto) (K/mm3) 0.1 Diagnosis, Assessment Plan Diagnosis, Assessment Plan Assessment: nml progress Plan: routine care at 0828 RPT #:[id number] END OF REPORT [facility] 2022-05-15 11:05:00 [facility]) OB Postpart Progr Note REPORT#:[id number] REPORT STATUS: Signed DATE:05/15/22 TIME: 1105 PATIENT: SHARYN RUSSELL UNIT #: [id number] ROOM/BED: [address] : 92 AGE: 31 SEX: F [...] (14.5 - 29.7 %) 10.8 L 16.7 [place] % (Auto) (3.6 - 10.2 %) 9.1 12.0 H Eos % (Auto) (0.0 - 3.0 %) 0.0 0.2 Baso % (Auto) (0.1 - 0.9 %) 0.3 0.5 Neut # (Auto) (K/mm3) 14.6 9.4 Lymph # (Auto) (K/mm3) 2.0 2.3 [place] # (Auto) (K/mm3) 1.7 1.7 Eos # (Auto) (K/mm3) 0 0.03 Baso # (Auto) (K/mm3) 0.1 0.1 Serology Treponema pallidum Ab (NONREACTIVE) NONREACTIVE Hep Bs Antigen (NONREACTIVE) NONREACTIVE Hepatitis C Antibody (NONREACTIVE) NONREACTIVE Hep C Ab Signal/Cutoff (<0.80) 0.04 Diagnosis, Assessment Plan Diagnosis, Assessment Plan Assessment: nml progress Plan: routine care at [address] [facility] #:[id number] END OF REPORT [facility] 2022-05-14 22:45:00 [id number] [facility] [place] [address] PATIENT NAME: SHARYN RUSSELL ADMIT DATE: 05/12/22 ACCOUNT NO: [id number] ROOM NO: [facility] AGE: 31 SEX: F ADMITTING PHYSICIAN: Abel Mcgovern MD ATTENDING PHYSICIAN: Abel Mcgovern MD OPERATION DATE: 05/14/2022 PREOPERATIVE DIAGNOSES: 1. A 35 weeks and 2 days' gestation. 2. Two previous sections. 3. labor. POSTOPERATIVE DIAGNOSES: 1. A 35 weeks and 2 days' gestation. 2. Two previous sections. 3. labor. PROCEDURE PERFORMED: Repeat low transverse section. SURGEON: Abel Mcgovern MD. DRUPAL ARCHITECT: Presley Ortiz MD, an physiotherapist's assistant is needed since section is a [...] with scalpel. Clear amniotic fluid was noted. Power Lineman Technician's right hand reached over baby's head and physiotherapist's assistant applied fundal pressure, baby was easily [...] running-locking fashion. Hemostasis was achieved with additional mriyaw-kc-xmyco suture. Abdomen was cleaned with some moist [...] By: Abel Mcgovern MD WT: OP:FLIZBETH/TERELL/ERVIN Conf#: [id number]/DID#: [id number] Authenticated by Abel Mcgovern MD On 05/15/2022 08:57:46 PM at 0857 PATIENT NAME: SHARYN RUSSELL [facility] 2022-05-14 22:38:00 [facility] ([facility]) OB Delivery Note REPORT#:[id number] REPORT STATUS: Signed DATE:05/14/22 TIME: 2237 PATIENT: SHARYN RUSSELL UNIT #: [id number] ROOM/BED: [address] : 92 AGE: 31 SEX: F [...] 2125 Birthweight (gm) A: 2200 Weight (lb) A: Weight (oz) infant A: Gender infant A: Male 1 minute infant A: 5 minutes A: 10 minutes A: Cord pH obtained infant A: Vacuum time A: Vacuum # pulls infant A: Vacuum # popoffs A: QBL at delivery: __ Provider comments on imported nursing data: [] Pre-delivery GBS status: GBS status: unknown evaluation at delivery: BUTTON BRADDER Admission EGA: Weeks: 35 EGA at delivery [...] infant stable in nursery at 2241 RPT #:[id number] END OF REPORT [facility] 2022-05-14 11:56:00 [facility] ([facility]) OB Antepartum Prog Note REPORT#:[id number] REPORT STATUS: Signed DATE:05/14/22 TIME: 1156 PATIENT: SHARYN RUSSELL UNIT #: [id number] [address] AGE: 31 SEX: F ATTEND: [...] 0745 Pulse Ox 98 05/14 0745 B/P 125/05/14 0745 Temp 98.3 05/14 0745 Pulse 96 [...] helpful, consider delivery tomorrow at 1202 RPT #:[id number] END OF REPORT [facility] 2022-05-13 22:39:00 [facility] ([facility]) OB Antepartum Prog Note REPORT#:[id number] REPORT STATUS: Signed DATE:05/13/22 TIME: 2238 PATIENT: SHARYN RUSSELL UNIT #: [id number] ROOM/BED: [address] : 92 AGE: 31 SEX: F [...] her IVF for ketonuria at 2244 RPT #:[id number] END OF REPORT [facility] 2022-05-12 22:36:00 [facility] ([facility]) OB Admission / H P REPORT#:[id number] REPORT STATUS: Signed DATE:05/12/22 TIME: 2235 PATIENT: SHARYN RUSSELL UNIT #: [id number] ROOM/BED: [address] : 92 AGE: 31 SEX: F [...] disease, Periph arterial disease, Pressure ulcer, Prior [place], Schizophrenia, Sickle cell disease, Steroid use, Thyroid [...] surgery, Nephrectomy, PCI, Prostate surgery, Thyroidectomy, Tracheotomy, BOOTH OPERATOR shunt. Alcohol Use Denies EtOH use Drug Use Denies recreational drugs Smoking status: Smoking status for patients 13 years old or older: Unknown,if ever smoked Allergies: Coded Allergies: amoxicillin (From AUGMENTIN) (Intermediate, RASH 04/14/22) clavulanic acid (From AUGMENTIN) (Intermediate, RASH 04/14/22) Objective General VS: Last Documented: Result Date Time B/P Mean 78.0 05/128 B/P 107/57 05/12 193 Pulse 98 05/12 193 Pulse Ox 98 [...] pH (5 - 9) 6.0 Ur Specific Ulysses (1.001 - 1.035) 1.019 Urine Protein (NEG) [...] antiemetics, IVF, betamethasone admin at 2252 RPT #:[id number] END OF REPORT [facility] 2022-04-14 22:41:00 [facility] ([facility]) [place] Evaluation Note REPORT#:[id number] REPORT STATUS: Signed DATE:04/14/22 TIME: 2240 PATIENT: SHARYN RUSSELL UNIT #: [id number] ROOM/BED: : 92 AGE: 31 SEX: F [...] 1644 B/P 121/72 04/14 1644 Pulse 83 / 1644 Vital Signs Date Temp Pulse Resp [...] time is 3 hours at 2241 RPT #:[id number] END OF REPORT [facility] 2022-04-06 08:44:00 [facility] ([facility]) [place] Evaluation Note REPORT#:[id number] REPORT STATUS: Signed DATE:04/06/22 TIME: 843 PATIENT: SHARYN RUSSELL UNIT #: [id number] ROOM/BED: : 92 AGE: 31 SEX: F [...] 04/05 2245 DC 04/05 (PROMETHAZINE HCL) PO 04/060 2331 Allergies Coded Allergies: amoxicillin (From AUGMENTIN) [...] and pain is gone at 0855 RPT #:[id number] END OF REPORT [facility] 2022-03-02 23:39:00 [facility] ([facility]) [place] Evaluation Note REPORT#:[id number] REPORT STATUS: Signed DATE:03/02/22 TIME: 2338 PATIENT: SHARYN RUSSELL UNIT #: [id number] ROOM/BED: : 92 AGE: 31 SEX: F [...] contraction since 1 hour before arrival at [facility]. She denies VB, ROM, MERIDA, scotomata, RUQP, [...] pH (5 - 9) 7.0 Ur Specific Ulysses (1.001 - 1.035) 1.006 Urine Protein (NEG) [...] Phenergan 25 mg po at 2349 RPT #:[id number] END OF REPORT [facility] 2021-05-08 15:39:00 [facility] ([facility]) OB Disch REPORT#:[id number] REPORT STATUS: Signed DATE:05/08/21 TIME: 1539 PATIENT: SHARYN RUSSELL UNIT #: [id number] ROOM/BED: 1997 : 92 AGE: 30 SEX: [...] WEIGHT: Weight (lb): Weight (oz): Weight (kg): 98.614474 Physical Exam Cardiac: normal rhythm Lungs: clear [...] % (Auto) (14.5 - 29.7 %) 18.7 [place] % (Auto) (3.6 - 10.2 %) 4.8 Eos % (Auto) (0.0 - 3.0 %) 0.2 Baso % (Auto) (0.1 - 0.9 %) 0.2 Neut # (Auto) (K/mm3) 9.4 Lymph # (Auto) (K/mm3) 2.3 [place] # (Auto) (K/mm3) 0.6 Eos # (Auto) [...] timeframe: In 1-2 weeks at 1541 RPT #:[id number] END OF REPORT [facility] 2021-05-07 13:34:00 [facility] ([facility]) OB Postpart Progr Note REPORT#:[id number] REPORT STATUS: Signed DATE:05/07/21 TIME: 1334 PATIENT: SHARYN RUSSELL UNIT #: [id number] ROOM/BED: [address] : 92 AGE: 30 SEX: F [...] % (Auto) (14.5 - 29.7 %) 18.7 [place] % (Auto) (3.6 - 10.2 %) 4.8 Eos % (Auto) (0.0 - 3.0 %) 0.2 Baso % (Auto) (0.1 - 0.9 %) 0.2 Neut # (Auto) (K/mm3) 9.4 Lymph # (Auto) (K/mm3) 2.3 [place] # (Auto) (K/mm3) 0.6 Eos # (Auto) (K/mm3) 0.03 Baso # (Auto) (K/mm3) 0.0 Other Body Source Membranes Rupture RUPTURED Microbiology: Date/Time Procedure - Status Source Growth 05/06 151 Placental Culture - RECD PLACENTA 05/06 151 Anaerobic Culture - RECD PLACENTA 05/06 151 Gram Stain - RECD PLACENTA 05/06 151 Placental Culture - RECD PLACENTA 05/06 151 Anaerobic Culture - RECD PLACENTA 05/06 1510 Gram Stain - RECD PLACENTA Diagnosis, Assessment Plan Diagnosis, Assessment Plan Assessment: nml progress, acute blood loss anemia, chronic anemia from Plan: routine care at [facility] #:[id number] END OF REPORT [facility] 2021-05-06 16:07:00 [id number] [place] [address] PATIENT NAME: SHARYN RUSSELL ADMIT DATE: 05/06/21 ACCOUNT NO: [id number] ROOM NO: [facility][Note 3] AGE: 30 SEX: F ADMITTING PHYSICIAN: Abel [...] low transverse section. SURGEON: Abel Mcgovern MD DRUPAL ARCHITECT: Dr. Presley Ortiz, an physiotherapist's assistant needed since section is a complicated [...] a scalpel. Clear amniotic fluid was noted. Power Lineman Technician's right hand reached over baby's head and physiotherapist's assistant applied fundal pressure, baby was easily delivered. Nose and mouth were suctioned. Cord was double clamped and cut between two clamps. Baby was passed to nurse. Cord blood was obtained. Placenta manually extracted. Uterus cleaned inside PATIENT NAME: SHARYN RUSSELL abdominal cavity. The uterine incision repaired with #1 chromic in running-locking fashion. Hemostasis was achieved with additional pqalts-rt-loovs suture. Abdomen was cleaned with moist lap, [...] By: Abel Mcgovern MD WT: OP:F.SHANEL/TERELL/ERVIN Conf#: [id number]/DID#: [id number] Authenticated and Edited by Abel Mcgovern MD On 05/07/21 9:26:37 AM at 0929 PATIENT NAME: SHARYN RUSSELL [facility] 2021-05-06 16:06:00 [facility] ([facility]) OB Delivery Note REPORT#:[id number] REPORT STATUS: Signed DATE:05/06/21 TIME: 1606 PATIENT: SHARYN RUSSELL UNIT #: [id number] ROOM/BED: [address] : 92 AGE: 30 SEX: F ATTEND: Abel Mcgovern MD ADM AUTHOR: Able Mcgovern MD * ALL edits or amendments [...] Hemorrhage. Delivery date A: 05/06/21 Delivery time A: 1509 Birthweight (gm) infant A: 2940 Weight (lb) A: Weight (oz) infant A: Gender A: Female 1 minute A: 5 minutes infant A: 10 minutes A: Cord pH obtained infant A: Vacuum time A: Vacuum # pulls infant A: Vacuum # popoffs A: QBL at delivery: __ Provider comments on imported nursing data: [] Pre-delivery GBS status: GBS status: negative [place] evaluation at delivery: BUTTON BRADDER Admission EGA: Weeks: 37 Days: 6 EGA [...] at delivery: 600 mL at 1622 RPT #:[id number] END OF REPORT [facility] 2021-05-06 14:04:00 [facility] ([facility]) OB Admission / H P REPORT#:[id number] REPORT STATUS: Signed DATE:05/06/21 TIME: 1404 PATIENT: SHARYN RUSSELL UNIT #: [id number] [facility] : [facility] AGE: 30 SEX: F ATTEND: [...] disease, Periph arterial disease, Pressure ulcer, Prior [place], Schizophrenia, Sickle cell disease, Steroid use, Thyroid [...] surgery, Nephrectomy, PCI, Prostate surgery, Thyroidectomy, Tracheotomy, BOOTH OPERATOR shunt. Alcohol Use Denies EtOH use Drug [...] WEIGHT: Weight (lb): Weight (oz): Weight (kg): 98.758920 Physical Exam HEENT: normocephalic w/o injury Cardiac: [...] % (Auto) (14.5 - 29.7 %) 21.3 [place] % (Auto) (3.6 - 10.2 %) 10.3 H Eos % (Auto) (0.0 - 3.0 %) 0.6 Baso % (Auto) (0.1 - 0.9 %) 0.4 Neut # (Auto) (K/mm3) 6.3 Lymph # (Auto) (K/mm3) 2.0 [place] # (Auto) (K/mm3) 1.0 Eos # (Auto) (K/mm3) 0.06 Baso # (Auto) (K/mm3) 0.0 Diagnosis, Assessment Plan Diagnosis, Assessment Plan Assessment/Impression: PROM 37-38 weeks, 6 days, previous C/S, in labor Plan: at 1410 RPT #:[id number] END OF REPORT [facility] 2021-05-06 14:04:00 [facility] ([facility]) OB Admission / H P REPORT#:[id number] REPORT STATUS: Signed DATE:05/06/21 TIME: 1404 PATIENT: SHARYN RUSSELL UNIT #: [id number] ROOM/BED: [address] : 92 AGE: 30 SEX: F [...] disease, Periph arterial disease, Pressure ulcer, Prior [place], Schizophrenia, Sickle cell disease, Steroid use, Thyroid [...] surgery, Nephrectomy, PCI, Prostate surgery, Thyroidectomy, Tracheotomy, BOOTH OPERATOR shunt. Alcohol Use Denies EtOH use Drug [...] non productive cough. Cardiovascular: Denies: chest pain, JAEN (dyspnea on exertion), edema. GI: Reports: constipation. Denies: diarrhea, nausea, vomiting. : Reports: pelvic pain, . Denies: vaginal bleeding. Objective General VS: PATIENT WEIGHT: Weight (lb): Weight (oz): Weight (kg): 98.759719 Physical Exam HEENT: normocephalic w/o injury Cardiac: [...] % (Auto) (14.5 - 29.7 %) 21.3 [place] % (Auto) (3.6 - 10.2 %) 10.3 H Eos % (Auto) (0.0 - 3.0 %) 0.6 Baso % (Auto) (0.1 - 0.9 %) 0.4 Neut # (Auto) (K/mm3) 6.3 Lymph # (Auto) (K/mm3) 2.0 [place] # (Auto) (K/mm3) 1.0 Eos # (Auto) (K/mm3) 0.06 Baso # (Auto) (K/mm3) 0.0 Diagnosis, Assessment Plan Diagnosis, Assessment Plan Assessment/Impression: PROM 37-38 weeks, 6 days, previous C/S, in labor Plan: at 1410 Addendum 1: 05/08/21 1544 by Abel Mcgovern MD actually pt is 38 weeks at 1544 RPT #:[id number] END OF REPORT [facility] 2021-04-20 20:40:00 [facility] [place] Evaluation Note REPORT#:[id number] REPORT STATUS: Signed DATE:04/20/21 TIME: 2039 PATIENT: SHARYN RUSSELL UNIT #: [id number] ROOM/BED: : 92 AGE: 30 SEX: F [...] (Auto) (14.5 - 29.7 %) 5.1 L [place] % (Auto) (3.6 - 10.2 %) 5.6 Eos % (Auto) (0.0 - 3.0 %) 0.3 Baso % (Auto) (0.1 - 0.9 %) 0.4 Neut # (Auto) (K/mm3) 9.6 Lymph # (Auto) (K/mm3) 0.6 [place] # (Auto) (K/mm3) 0.6 Eos # (Auto) (K/mm3) 0.03 Baso # (Auto) (K/mm3) 0.0 Urines Urine Color (YELLOW) YELLOW Urine Appearance (CLEAR) Slightly-Cloudy Urine pH (5 - 9) 5.0 Ur Specific Ulysses (1.001 - 1.035) 1.026 Urine Protein (NEG) [...] vomiting diarrhea Plan: discharge home at 2046 RPT #:[id number] END OF REPORT [facility] 2021-04-01 17:34:00 [facility] ([facility]) [place] Evaluation Note REPORT#:[id number] REPORT STATUS: Signed DATE:04/01/21 TIME: 1734 PATIENT: SHARYN RUSSELL UNIT #: [id number] ROOM/BED: : 92 AGE: 30 SEX: F ATTEND: Able Mcgovern MD ADM AUTHOR: Abel Mcgovern MD [...] WEIGHT: Weight (lb): Weight (oz): Weight (kg): 98.964270 Physical Exam HEENT: normocephalic w/o injury Cardiac: [...] on exam Plan: discharge home at 1740 RPT #:[id number] END OF REPORT [facility] 2019-11-09 08:57:00 [id number] [facility] [address] [place], [place] [address] PATIENT NAME: SHARYN RUSSELL ADMIT DATE: 11/05/19 ACCOUNT NO: [id number] ROOM NO: 1997 AGE: 29 SEX: F ADMITTING PHYSICIAN: Mario Ferrer III, MD ATTENDING PHYSICIAN: Mario Ferrre III, MD ADMISSION DATE: 11/05/2019 DISCHARGE DATE: [...] for postdates induction. The recent ultrasound revealed in the 36 to 40 [...] III, MD PATIENT NAME: SHARYN RUSSELL WT: DS:F.SHANEL/JOSE R/ERVIN Conf#: [id number]/DID#: [id number] Authenticated by Mario Ferrer MD On 11/11/2019 01:00:32 PM at 1300 PATIENT NAME: SHARYN RUSSELL [facility] 2019-11-09 08:49:00 [facility] OB Postpart Progr Note REPORT#:[id number] REPORT STATUS: Signed DATE:11/09/19 TIME: 0849 PATIENT: SHARYN RUSSELL UNIT #: [id number] ROOM/BED: : 92 AGE: 29 SEX: F [...] discussed with: patient, spouse/partner at 0849 RPT #:[id number] END OF REPORT [facility] 2019-11-08 08:45:00 [facility] ([facility]) OB Postpart Progr Note REPORT#:[id number] REPORT STATUS: Signed DATE:11/08/19 TIME: 0845 PATIENT: SHARYN RUSSELL UNIT #: [id number] ROOM/BED: 1997 : 92 AGE: 29 SEX: F ATTEND: [...] been assigned to me. at 0848 RPT #:[id number] END OF REPORT [facility] 2019-11-06 21:32:00 [id number] [place] [address] PATIENT NAME: SHARYN RUSSELL ADMIT DATE: 11/05/19 ACCOUNT NO: [id number] ROOM NO: .1997 AGE: 29 SEX: F ADMITTING PHYSICIAN: Mario Ferrer III, MD ATTENDING PHYSICIAN: Mario Ferrer III, MD OPERATION DATE: 11/06/2019 PREOPERATIVE DIAGNOSES: 1. Postdates intrauterine . 2. Failure to progress. POSTOPERATIVE DIAGNOSIS: Cephalopelvic disproportion, occipital posterior, asynclitic. PROCEDURE: Primary low transverse section. SURGEON: Mario Ferrer III, MD DRUPAL ARCHITECT: Jama Amaya SA ANESTHESIA: Epidural. PROCEDURE IN [...] Monocryl starting in each angle with 2 nexkuk-nv-bbhxup for excellent hemostasis. Uterus firmed up nicely [...] OP:ESTEFANY/JOSE R/ERVIN PATIENT NAME: SHARYN RUSSELL Conf#: [id number]/DID#: [id number] Authenticated by Mario Ferrer MD On 11/09/2019 08:51:31 AM at 0851 PATIENT NAME: SHARYN RUSSELL [facility] 2019-11-06 19:46:00 [facility] ([facility]) OB Intrapart Prog Note REPORT#:[id number] REPORT STATUS: Signed DATE:11/06/19 TIME: 1945 PATIENT: SHARYN RUSSELL UNIT #: [id number] ROOM/BED: [address] : 92 AGE: 29 SEX: F [...] comments. __ ROM date: 11/06/19 ROM time: 0410 __ Provider comments on imported nursing data: [...] discussed with: patient, spouse/partner at 1948 RPT #:[id number] END OF REPORT [facility] 2019-11-06 18:53:00 [facility] OB Intrapart Prog Note REPORT#:[id number] REPORT STATUS: Signed DATE:11/06/19 TIME: 185 PATIENT: SHARYN RUSSELL UNIT #: [id number] ROOM/BED: [address] : 92 AGE: 29 SEX: F [...] will proceed to C/S at 1855 RPT #:[id number] END OF REPORT [facility] 2019-11-06 15:26:00 [facility] OB Intrapart Prog Note REPORT#:[id number] REPORT STATUS: Signed DATE:11/06/19 TIME: 1526 PATIENT: SHARYN RUSSELL UNIT #: [id number] ROOM/BED: [address] : 92 AGE: 29 SEX: [...] with: patient, spouse/partner, parent at 1529 RPT #:[id number] END OF REPORT [facility] 2019-11-06 11:58:00 [facility] OB Intrapart Prog Note REPORT#:[id number] REPORT STATUS: Signed DATE:11/06/19 TIME: 1158 PATIENT: SHARYN RUSSELL UNIT #: [id number] ROOM/BED: [address] : 92 AGE: 29 SEX: F [...] comments. __ ROM date: 11/06/19 ROM time: 0410 __ Provider comments on imported nursing data: [...] managmnt, continue labor induction at 1159 RPT #:[id number] END OF REPORT [facility] 2019-11-06 09:58:00 [id number] [address] PATIENT NAME: SHARYN RUSSELL ADMIT DATE: 11/05/19 ACCOUNT NO: [id number] ROOM NO: [facility] AGE: 29 SEX: F ADMITTING PHYSICIAN: [...] and decreased movement. Last ultrasound done at [facility] showed a 36th percentile infant with [...] Dictated By: Mario Ferrer III, MD WT: HP:ESTEFANY/JOSE R/ERVIN PATIENT NAME: DREWSHARYN ADHIKARI Conf#: [id number]/DID#: [id number] Authenticated by Mario Ferrer MD On 11/06/2019 06:58:09 PM at 1858 PATIENT NAME: SHARYN RUSSELL [facility] 2019-11-06 07:52:00 [facility] OB Intrapart Prog Note REPORT#:[id number] REPORT STATUS: Signed DATE:11/06/19 TIME: 751 PATIENT: SHARYN RUSSELL UNIT #: [id number] ROOM/BED: [address] : 92 AGE: 29 SEX: F [...] Plan discussed with: patient at 0758 RPT #:[id number] END OF REPORT [facility] 2019-11-06 05:36:00 [facility] Clinical Note REPORT#:[id number] REPORT STATUS: Signed DATE:11/06/19 TIME: 05 PATIENT: SHARYN RUSSELL UNIT #: [id number] ROOM/BED: [address] : 92 AGE: 29 SEX: F [...] posterior placenta, movements observed at 0538 RPT #:[id number] END OF REPORT [facility]
[2025-07-30 19:50] LABS: Absolute Lymphocytes (CBC) 3.5 K/uL (0.7-4.9); Hematocrit 37.3 % (36.0-45.0); Hemoglobin 12.8 g/dL (12.0-15.0); MCH 31.8 pg (27.0-35.0); MCHC 34.4 g/dL (32.0-36.0); MCV 92.4 fL (80-100); MPV 8.5 fL (7.6-11.3); Nucleated RBC Absolute Count 0.0 (0-0); Nucleated Red Blood Cells % 0.0 % (0-0); RBC Red Blood Cell Count 4.04 M/uL (3.86-4.86); White Blood Count 6.90 thou/uL (4.3-10.9)
[2025-07-30] MEDS ORDERED: MORPHINE 4 MG/ML SYR ONE ×2 (19:51→22:35)
[2025-07-30] MEDS ORDERED: ONDANSETRON 4 MG/2 ML VIAL ONE (19:51)
[2025-07-30] MEDS ORDERED: NA CHLORIDE 0.9% 1,000 ML ONE (19:52)
[2025-07-30 20:00] LABS: Sqamous Epithelial <5 /HPF (None Seen); Urine Crystals Unidentified Few /HPF (None Seen); Urine Culture Reflex Order NOT NEEDED; Urine Microscopic Reflex YN ORDER UMIC
[2025-07-30 20:10] LABS: ALT/SGPT 19 U/L (13-56); Albumin 3.7 g/dL (3.4-5.0); Albumin/Globulin Ratio 1.1 (1.1-1.8); Alkaline Phosphatase 52 U/L (45-117); Anion Gap 8.5 mEq/L (5.0-15.0); BUN Blood Urea Nitrogen 10 mg/dL (7-18); Globulin 3.5 g/dL (2.3-3.5); Glucose Level 78 mg/dL (74-106); Lipase 28 U/L (13-75); Potassium 3.5 mEq/L (3.5-5.1)
--- NOTE | 2025-07-30 20:45 | RAD REPORT ---
EXAMINATION: US Pelvis Complete, Abdomen Pelvis Scan US CLINICAL INDICATION: Female 34 years old.[facility] MA[facility] unknown left adnexal/lower abdomen pain Bed Name: 16 TECHNIQUE: Real-time ultrasonography of the pelvis was performed transabdominally. Color and spectral Doppler arterial and venous flow evaluation of the ovaries was performed. COMPARISON: No prior exam. FINDINGS: UTERUS AND CERVIX: The uterus measures 7.5 cm in length. The uterus is normal. No masses seen The end ometrium is normal, 0.5 cm in thickness. RIGHT OVARY: Normal The right ovary measures 2.7 x 1.8 x 2.2 cm. Normal color and spectral Doppler evaluation of the right ovary.. LEFT OVARY: Normal The left ovary measures 2.5 x 1.4 x 1.6 cm. Normal color and spectral Doppler evaluation of the left ovary.. FREE FLUID: No free fluid. IMPRESSION: No acute or suspicious abnormalities. No evidence of torsion.
[2025-07-30 20:46] LABS: AST/SGOT < 10 U/L (15-37)
--- NOTE | 2025-07-30 22:15 | RAD REPORT ---
EXAMINATION: CT Abdomen Pelvis W Contrast CLINICAL INDICATION: Female, 34 years old. left lower abdomen pain TECHNIQUE: CT abdomen and pelvis was performed, after the administration of IV contrast, [facility]. Axial, sagittal and coronal reconstructions were obtained. One or more of the following dose reduction techniques were used: Automated exposure control, adjustment of the mA and k V according to patient size, and iterative reconstruction. Unless otherwise specified, incidental findings do not require dedicated imaging follow-up. COMPARISON: 05/29/2025. FINDINGS: LOWER CHEST: The visualized lung bases are clear. LIVER: Normal in size and contour. No focal lesion. BILIARY SYSTEM: No suspicious abnormalities. SPLEEN: Normal size. No focal lesion. PANCREAS: No mass, ductal dilation, or godfrey-pancreatic fluid. ADRENALS: Normal; no mass. KIDNEYS: Normal size and contour. No hydronephrosis. URINARY BLADDER: Unremarkable. GASTROINTESTINAL TRACT: Sequelae of bariatric surgery. No evidence of free air, significant intra-abd ominal free fluid, bowel obstruction or abscess. APPENDIX: Appendix surgically absent. LYMPH NODES: No lymphadenopathy. MUSCULOSKELETAL: No acute or suspicious osseous abnormality. ADDITIONAL FINDINGS: None. IMPRESSION: No acute or concerning abnormalities seen in the abdomen or pelvis.
--- NOTE | 2025-07-30 22:29 | ER ---
Nurse's Notes [facility] Name: Pamela Osman Age: 34 yrs Sex: Female : 1990 Arrival Date: 07/30/2025 Time: 19:02 Bed 16 Private MD: Diagnosis: Lower abdominal pain, unspecified Presentation: 07/30 19:18 Chief complaint: Patient states: LEFT LOWER PELVIC PAIN, N/V AND DIARRHEA THAT STARTED dd2 EARLIER TODAY. HX OF OVARIAN CYSTS. Coronavirus screen: At this time, the client does not indicate any symptoms associated with coronavirus-19. Ebola Screen: No symptoms or risks identified at this time. Initial Sepsis Screen: Does the patient meet any 2 criteria? No. Patient's initial sepsis screen is negative. Does the patient have a suspected source of infection? No. Patient's initial sepsis screen is negative. Risk Assessment: Do you want to hurt yourself or someone else? Patient reports no desire to harm self or others. Onset of symptoms was July 30, 2025. 19:18 Method Of Arrival: Ambulatory dd2 19:18 Acuity: LAURIE 3 dd2 Historical: - Allergies: 19:19 No Known Allergies; dd2 - Home Meds: 19:28 Mounjaro subcutaneous [Active]; kt5 - PMHx: 19:19 OVARIAN CYST; dd2 - PSHx: 19:19 adenoids; section; gastric sleeve; R ACL repair; dd2 - Immunization history:: Adult Immunizations up to date. - Infectious Disease History:: Denies. - Social history:: Smoking status: Patient denies any tobacco usage or history of. Patient/guardian denies using alcohol, street drugs. Screenin:28 [facility] ED Fall Risk Assessment (Adult) History of falling in the last 3 months, kt5 including since admission No falls in past 3 months (0 pts) Confusion or Disorientation No (0 pts) Intoxicated or Sedated No (0 pts) Impaired Gait No (0 pts) Mobility Assist Device Used No (0 pt) Altered Elimination No (0 pt) Score/Fall Risk Level 0 - 2 = Low Risk. Abuse screen: Denies threats or abuse. Nutritional screening: No deficits noted. Tuberculosis screening: No symptoms or risk factors identified. Assessment: 19:25 General: Appears in no apparent distress. uncomfortable, Behavior is calm, cooperative, kt5 appropriate for age. Pain: Complains of pain in suprapubic area and left lower quadrant Pain currently is 9 out of 10 on a pain scale. Quality of pain is described as sharp, Pain began. Neuro: No deficits noted. Hernandez Agitation-Sedation Scale (RASS): 0 - Alert and Calm Level of Consciousness is awake, alert, obeys commands, Oriented to person, place, time, situation, Appropriate for age. Cardiovascular: No deficits noted. Denies chest pain, Heart tones S1 S2 present Capillary refill < 3 seconds Clubbing of nail beds is absent JVD is absent Pulses are all present. Edema is absent. Respiratory: No deficits noted. Airway is patent Trachea midline Respiratory effort is even, unlabored, Respiratory pattern is regular, symmetrical. GI: Abdomen is round non-distended, Bowel sounds present X 4 quads. Abd is soft X 4 quads Abdomen is tender to palpation in suprapubic area and left lower quadrant Reports diarrhea, nausea, vomiting. : No deficits noted. No signs and/or symptoms were reported regarding the genitourinary system. EENT: No deficits noted. No signs and/or symptoms were reported regarding the EENT system. Derm: No deficits noted. No signs and/or symptoms reported regarding the dermatologic system. Skin is intact, is healthy with good turgor, Skin is dry, Skin is pink, warm \T\ dry. Skin temperature is warm. Musculoskeletal: No deficits noted. No signs and/or symptoms reported regarding the musculoskeletal system. 20:14 Reassessment: tech at for ultrasound. kt5 20:27 Reassessment: Patient appears in no apparent distress at this time. Patient and/or kt5 family updated on plan of care and expected duration. Pain level reassessed. Patient is alert, oriented x 3, equal unlabored respirations, skin warm/dry/pink. Patient states feeling better. Patient states symptoms have improved. 21:03 General: pt to ct via w/c with tech. kt5 21:14 Reassessment: Patient appears in no apparent distress at this time. Patient and/or kt5 family updated on plan of care and expected duration. Pain level reassessed. Patient is alert, oriented x 3, equal unlabored respirations, skin warm/dry/pink. pt back from ct, tolerated well Patient states feeling better. Patient states symptoms have improved. 22:13 Reassessment: Patient appears in no apparent distress at this time. Patient and/or kt5 family updated on plan of care and expected duration. Pain level reassessed. Patient is alert, oriented x 3, equal unlabored respirations, skin warm/dry/pink. Patient states feeling better. Patient states symptoms have improved. 23:23 Reassessment: Patient appears in no apparent distress at this time. Patient and/or kt5 family updated on plan of care and expected duration. Pain level reassessed. Patient is alert, oriented x 3, equal unlabored respirations, skin warm/dry/pink. Patient states feeling better. Patient states symptoms have improved. Vital Signs: 19:18 BP 133 / 80; Pulse 66; Resp 16; Temp 98.4; Pulse Ox 100% on R/A; Pain 9/10; dd2 20:27 BP 130 / 87; Pulse 59; Resp 16 S; Pulse Ox 100% on R/A; kt5 22:13 BP 121 / 83; Pulse 62; Resp 18; Pulse Ox 100% ; Pain 3/10; kt5 23:23 BP 125 / 90; Pulse 61; Resp 18; Temp 98.6; Pulse Ox 100% ; Pain 4/10; kt5 19:18 Pain Scale: Adult dd2 22:13 Pain Scale: Adult kt5 23:23 Pain Scale: Adult kt5 ED Course: 19:07 Patient arrived in ED. cj3 19:13 Marissa Rivas, RN is Primary Nurse. kt5 19:14 Nic Reyes PA-C is PHCP. cp 19:14 Terrance Patterson DO is Attending Physician. cp 19:19 Triage completed. dd2 19:19 Arm band placed on right wrist. dd2 19:28 Patient has correct armband on for positive identification. Bed in low position. Call kt5 light in reach. Side rails up X 1. Adult w/ patient. Client placed on continuous cardiac and pulse oximetry monitoring. NIBP monitoring applied. Door closed. Noise minimized. Pillow given. 19:28 No provider procedures requiring assistance completed. Inserted saline lock: 20 gauge kt5 in right antecubital area, using aseptic technique. Blood collected. Flushed with 10 mL NS. 19:40 UA Rfx Ambrosio Cult if indicated Sent. kt5 19:40 CBC with Diff Sent. kt5 19:40 CMP Sent. kt5 19:40 Lipase Sent. kt5 20:01 Radiology exam delayed due to lab results not completed at this time. (HCG) nj (BUN/Creatinine) test not completed at this time. IV insertion attempt and/or patient not having appropriate IV at this time. 20:26 Abdomen Pelvis Scan\E\US In Process Unspecified. EDMS 20:26 Pelvis Complete In Process Unspecified. EDMS 21:09 CT Abd/Pelvis - IV Contrast Only In Process Unspecified. EDMS 22:29 Marcello Chong MD is Referral Physician. cp 23:23 Provided Education on: follow up. kt5 23:23 IV discontinued, intact, bleeding controlled, No redness/swelling at site. Pressure kt5 dressing applied. Administered Medications: 19:57 Drug: Ondansetron IVP 4 mg IVP once; over 2 minutes Route: IVP; Site: right antecubital;kt5 20:25 Follow up: Response: No adverse reaction; Pain is decreased kt5 20:26 Follow up: Response: Nausea is decreased kt5 19:57 Drug: NS 0.9% IV 1000 ml IV at 1 bolus Per protocol; to be given as a bolus over 60 kt5 minutes Route: IV; Rate: 1 bolus; Site: right antecubital; 22:41 Follow up: Response: No adverse reaction; IV Status: Completed infusion; IV Intake: kt5 1000ml 19:58 Drug: morphine IVP or IV 4 mg IVP once over 4 mins Route: IVP; Infused Over: 4 mins; kt5 Site: right antecubital; 20:26 Follow up: Response: No adverse reaction; Pain is decreased kt5 22:41 Drug: Ketorolac IVP 30 mg IVP once Route: IVP; Site: right antecubital; kt5 23:06 Follow up: Response: No adverse reaction; Pain is decreased kt5 22:41 Drug: morphine IVP or IV 4 mg IVP once over 4 mins Route: IVP; Infused Over: 4 mins; kt5 Site: right antecubital; 23:06 Follow up: Response: No adverse reaction; Pain is decreased kt5 Medication: 19:28 VIS not applicable for this client. kt5 Intake: 22:41 IV: 1000ml; Total: 1000ml. kt5 Outcome: 22:29 Discharge ordered by . cp 23:23 Discharged to home ambulatory, with family, kt5 23:23 Condition: improved 23:23 Discharge instructions given to patient, family, Instructed on discharge instructions, follow up and referral plans. Demonstrated understanding of instructions, follow-up care, medications, Prescriptions given X 2, 23:42 Patient left the ED. kt5 Signatures: Dispatcher [employer] EDMS Nic Reyes PA-C PA-C Bravo Nguyen DIANA, RN RN dd2 Melissa Scott cj3 Marissa Rivas, RN RN kt5
--- NOTE | 2025-07-30 22:29 | EDPHYS ---
Physician Documentation [facility] Name: Pamela Osman Age: 34 yrs Sex: Female : 1990 Arrival Date: 07/30/2025 Time: 19:02 Bed 16 Private MD: ED Physician Terrance Patterson HPI: 07/30 19:40 This 34 yrs old Female presents to ER via Ambulatory with complaints of Abdominal Pain cp - LLQ, Nausea, High Blood Pressure. 19:40 The patient presents with abdominal pain in the left lower quadrant. cp 19:40 Onset: The symptoms/episode began/occurred today. cp 19:40 The symptoms do not radiate. Associated signs and symptoms: Pertinent positives: cp diarrhea, nausea, Pertinent negatives: blood in stools, constipation, dysuria, fever, hematuria, vaginal discharge, vaginal bleeding. 19:40 The symptoms are described as sharp, constant. cp 19:40 Severity of pain: in the emergency department the pain is unchanged despite home cp interventions. Historical: - Allergies: 19:19 No Known Allergies; dd2 - Home Meds: 19:28 Mounjaro subcutaneous [Active]; kt5 - PMHx: 19:19 OVARIAN CYST; dd2 - PSHx: 19:19 adenoids; section; gastric sleeve; R ACL repair; dd2 - Immunization history:: Adult Immunizations up to date. - Infectious Disease History:: Denies. - Social history:: Smoking status: Patient denies any tobacco usage or history of. Patient/guardian denies using alcohol, street drugs. ROS: 19:45 Constitutional: Negative for body aches, chills, fever, poor PO intake, cp 19:45 Eyes: Negative for injury, pain, redness, and discharge, cp 19:45 ENT: Negative for drainage from ear(s), ear pain, sore throat, difficulty swallowing, difficulty handling secretions, 19:45 Cardiovascular: Negative for chest pain, 19:45 Respiratory: Negative for cough, shortness of breath, wheezing, 19:45 Abdomen/GI: Positive for abdominal pain, nausea, of the left lower quadrant, Negative for vomiting, diarrhea, constipation, Exam: 19:50 Constitutional: The patient appears in no acute distress, alert, awake, non-toxic, well cp developed, well nourished, 19:50 Head/Face: Normocephalic, atraumatic. cp 19:50 Eyes: Periorbital structures: appear normal, Conjunctiva: normal, no exudate, no injection, Sclera: no appreciated abnormality, Lids and lashes: appear normal, bilaterally, 19:50 ENT: External ear(s): are unremarkable, Nose: is normal, Mouth: Lips: moist, Oral mucosa: moist, Posterior pharynx: Airway: no evidence of obstruction, patent, 19:50 Chest/axilla: Inspection: normal, 19:50 Cardiovascular: Rate: normal, 19:50 Respiratory: the patient does not display signs of respiratory distress, Respirations: normal, no use of accessory muscles, no retractions, labored breathing, is not present, Breath sounds: are clear throughout, no decreased breath sounds, no stridor, no wheezing, 19:50 Abdomen/GI: Inspection: abdomen appears normal, Bowel sounds: active, all quadrants, Palpation: soft, in all quadrants, moderate abdominal tenderness, in the left lower quadrant, rebound tenderness, is not appreciated, involuntary guarding, is not appreciated, 19:50 Back: CVA tenderness, is absent, 19:50 Neuro: Orientation: to person, place \T\ time. Mentation: is normal, Vital Signs: 19:18 BP 133 / 80; Pulse 66; Resp 16; Temp 98.4; Pulse Ox 100% on R/A; Pain 9/10; dd2 20:27 BP 130 / 87; Pulse 59; Resp 16 S; Pulse Ox 100% on R/A; kt5 22:13 BP 121 / 83; Pulse 62; Resp 18; Pulse Ox 100% ; Pain 3/10; kt5 23:23 BP 125 / 90; Pulse 61; Resp 18; Temp 98.6; Pulse Ox 100% ; Pain 4/10; kt5 19:18 Pain Scale: Adult dd2 22:13 Pain Scale: Adult kt5 23:23 Pain Scale: Adult kt5 MDM: 19:17 Medical Screening Exam initiated cp 20:00 Differential diagnosis: bowel obstruction, diverticulitis, Ectopic , cp non-specific abd pain, Ovarian Torsion, Pelvic Inflammatory Disease, Pyelonephritis, Tubal Ovarian Abcess, Ureterolithiasis, urinary tract infection. 22:29 Data reviewed: vital signs, nurses notes, lab test result(s), radiologic studies, CT cp scan, ultrasound. 07/30 19:34 Order name: CBC with Diff; Complete Time: 21:42 cp 07/30 21:42 Interpretation: Normal except: IGGY% 38.9; LYM% 50.8. cp 07/30 19:34 Order name: CMP; Complete Time: 21:42 cp 07/30 21:42 Interpretation: Normal except: CL 110; AST < 10. cp 07/30 19:34 Order name: Lipase; Complete Time: 21:42 cp 07/30 19:35 Order name: UA Rfx Ambrosio Cult if indicated; Complete Time: 21:42 cp 07/30 21:42 Interpretation: Normal except: [facility] Turbid. cp 07/30 19:35 Order name: US Pelvis Complete cp 07/30 19:35 Order name: CT Abd/Pelvis - IV Contrast Only; Complete Time: 22:21 cp 07/30 19:39 Order name: Abdomen Pelvis Scan\E\US; Complete Time: 21:42 EDMS 07/30 21:43 Interpretation: Report reviewed. 07/30 19:43 Order name: Pelvis Complete; Complete Time: 21:42 EDMS 07/30 19:35 Order name: IV Saline Lock; Complete Time: 20:11 cp 07/30 19:35 Order name: Labs collected and sent; Complete Time: 19:40 cp Administered Medications: 19:57 Drug: Ondansetron IVP 4 mg IVP once; over 2 minutes Route: IVP; Site: right antecubital;kt5 20:25 Follow up: Response: No adverse reaction; Pain is decreased kt5 20:26 Follow up: Response: Nausea is decreased kt5 19:57 Drug: NS 0.9% IV 1000 ml IV at 1 bolus Per protocol; to be given as a bolus over 60 kt5 minutes Route: IV; Rate: 1 bolus; Site: right antecubital; 22:41 Follow up: Response: No adverse reaction; IV Status: Completed infusion; IV Intake: kt5 1000ml 19:58 Drug: morphine IVP or IV 4 mg IVP once over 4 mins Route: IVP; Infused Over: 4 mins; kt5 Site: right antecubital; 20:26 Follow up: Response: No adverse reaction; Pain is decreased kt5 22:41 Drug: Ketorolac IVP 30 mg IVP once Route: IVP; Site: right antecubital; kt5 23:06 Follow up: Response: No adverse reaction; Pain is decreased kt5 22:41 Drug: morphine IVP or IV 4 mg IVP once over 4 mins Route: IVP; Infused Over: 4 mins; kt5 Site: right antecubital; 23:06 Follow up: Response: No adverse reaction; Pain is decreased kt5 Disposition: 07/31 04:01 Co-signature as Attending Physician, Terrance SANCHEZ reviewed the patient's care tt7 provided by the Advanced Practice Provider and agree with the diagnosis and treatment plan. Disposition Summary: 07/30/25 22:29 Discharge Ordered Notes: Location: Home cp Problem: new cp Symptoms: have improved cp Condition: Stable cp Diagnosis - Lower abdominal pain, unspecified cp Followup: cp - With: Marcello Chong MD - When: 2 - 3 days - Reason: Recheck today's complaints Discharge Instructions: - Abdominal Pain, Adult cp - Discharge Summary Sheet vk Forms: - Medication Reconciliation Form cp - Antibiotic Education cp - Prescription Opioid Use cp - Patient Portal Instructions cp - Leadership Thank You Letter cp - SBAR form vk Prescriptions: - Zofran 4 mg Oral Tablet - take 1 tablet ORAL route every 12 hours As needed; 20 tablet; Refills: 0, cp Product Selection Permitted - dicyclomine 20 mg Oral tablet - take 1 tablet ORAL route 4 times per day; 30 tablet; Refills: 0, Product cp Selection Permitted Signatures: Dispatcher [employer] EDMS Nic Reyes PA-C PA-C cp DAVIS, DIANA, RN RN dd2 Marissa Rivas RN RN kt5 Terrance Patterson DO DO tt7 Corrections: (The following items were deleted from the chart) 07/30 19:35 19:35 Abdomen Pelvis W Con+CT.RAD.BRZ ordered. EDMS EDMS 19:43 19:38 Transvaginal Study Probe ordered. EDMS EDMS
[2025-07-30] MEDS ORDERED: KETOROLAC 30 MG/ML INJ ONE (22:35)
[2025-07-30 23:46] VITALS: O2SAT 100
[2025-07-30 23:51] VITALS: BP 125/90; TEMP 98.6
== END 2025-07-30 23:42 | disposition home or self-care (01) ==
LOC: ER 19:02
DX: R10.32 Left lower quadrant pain (principal); R19.7 Diarrhea, unspecified; R11.0 Nausea
CPT/HCPCS: 96361; 85025; 81001; 36415; 83690; 80053; 74177; 93975; 76856; 96375; 96374; 99284; Q9967; J1885; J2405; J7030

== ENCOUNTER 2025-08-01 16:08 | Emergency (ER) | payer BC ==
--- OUTSIDE RECORDS SUMMARY | 2025-08-01 16:17 | XMS REPORT | Continuity of Care Document ---
Author Name Unknown Address [address] [place] [address] [facility] Address [address] [place] [address] Care Team Providers Care Plastic Surgery Coordinator Name Role Phone PHILIPPE MURCIA Primary Care Physician Unavailab Abel García Attending Clinician Unavailable Onur Cantu Attending Clinician Mario Boone Attending Clinician Unavailable JIMBO HERNANDEZ Attending Clinician Unavail able JIMBO HERNANDEZ Attending Clinician Unavail able MARV WASHINGTON Attending Clinician Unavailable MARV WASHINGTON Attending Clinician Unavailable Marv Correia Attending Clinician [phone] RADIOLOGY Attending Clinician Unavailable Radiology Attending Clinician Unavailable KULDIP BEAR Attending Clinician Unavailab KULDIP Watson Attending Clinician Unavailab REKHA Martin Attending Clinician Unavailab Rekha Martin DO Attending Clinician [phone] Mallory SHERMAN, Eufemia Attending Clinician Unavailable GROVER MONSON Attending Clinician Unavailable Grover Monson DO Attending Clinician [phone] Doctor Unassigned, [place] Attending Clinician U navailable TOBY OSORIO Attending Clinician Unavailable Troy SHERMAN, Mimi Sparks Attending Clinician Unavailab Moon Arellano Attending Clinician [phone] Eduard HOLLY, Liam Gooden Attending Clinician [phone] LIAM CHAPA Attending Clinician Unavailable NILSON REED Attending Clinician Unavailabl raghav Mendoza RN, Archana Attending Clinician Unavailable Po, [facility] Attending Clinician Unav ailable Jovani SOUTHP, Maia Attending Clinician [phone] MAIA HAHN Attending Clinician Unavailable Abel Mcgovern Admitting Clinician Unavailable KNOW, DOES_NOT Admitting Clinician Unavailable RON HOGUE Admitting Clinician Unavailable Mario Ferrer Admitting Clinician Unavailable JIMBO HERNANDEZ Admitting Clinician Unavail able MARV WASHINGTON Admitting Clinician Unavailable SONIA MEDINA Admitting Clinician Sue vailable Payers Payer Name Policy Type Policy Number Effective Date Expirati on Date Source [employer] [facility] [id number] 2020 00:00:00 [facility] [id number] 2023 00:00:00 [employer] [id number] 2022 00:00:00 Problems Condition Name Condition Details [...] Female Pelvis Problem Active 06-10 00:00: 00 [facility] Right lower quadrant pain Right Lower Quadrant Pain Problem Active 06-10 00:00: 00 [facility] 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 Problem Active 06-10 00:00: 00 [facility] Obesity (BMI 30-39.9) Obesity (BMI 30-39.9) Disease Active 07-17 00:00: 00 [facility] Ectopic without intrauteri ne , unspecifie d location Ectopic without intrauteri ne , unspecifie d location Disease Active 07-16 00:00: 00 [facility] Inappropri ate change in quantitati ve hCG in early Inappropri ate change in quantitati ve hCG in early Disease Active 06-12 00:00: 00 [facility] Acanthosis nigricans Acanthosis nigricans Disease Active 05-29 00:00: 00 [facility] Personal history of gastric banding Personal history of gastric banding Disease Active 05-29 00:00: 00 [facility] BMI 37.0-37.9, adult BMI 37.0-37.9, adult Disease Active 05-29 00:00: 00 [facility] of unknown anatomic location of unknown anatomic location Disease Resolve d 06-12 00:00: 00 2018-07-17 00:00:00 2018-07-17 13:25:52 [facility] Non-viable Non-viable Disease Resolve d 06-12 00:00: 00 2018-06-12 00:00:00 2018-06-12 16:32:10 [facility] Allergies, Adverse Reactions, Alerts Allergy Name Allergy Type Status Severity Reaction(s) Onset Date Inactive Date Treating Clinician Comments Source clavulan ic acid DA Active MO RASH 24 00:00: 00 [facility] amoxicil renea DA Active MO RASH 24 00:00: 00 [facility] clavulan ic acid DA Active MO RASH -12 00:00: 00 [facility] amoxicil renea DA Active MO RASH 0 5-12 00:00: 00 [facility] amoxicil renea DA Active MO RASH 0 6- 00:00: 00 [facility] clavulan ic acid DA Active MO 0 6- 00:00: 00 [facility] amoxicil renea DA Active MO 0 6 00:00: 00 [facility] clavulan ic acid DA Active MO RASH 0 04-01 00:00: 00 [facility] clavulan ic acid DA Active MO RASH 2019-10 00:00: 00 [facility] amoxicil renea DA Active MO RASH 2019-10 00:00: 00 [facility] clavulan ic acid DA Active MO 2019-10 00:00: 00 [facility] amoxicil renea DA Active MO 2019-10 00:00: 00 [facility] clavulan ic acid DA Active MO 2018-10 [...] reaction s Active Hives 05-29 00:00: 00 [facility] AMOXICIL RENEA-POT CLAVULAN ATE DRUG Active Hives 05-29 00:00: 00 [facility] NO KNOWN ALLERGIE S Drug Class Active [facility] Social History Social Habit Start Date Stop Date Quantity Comments Source History SDOH Alcohol Frequency [facility] History SDOH Alcohol Std Drinks [facility] History SDOH Alcohol Binge [facility] Gender identity [facility] Not [facility] History of Occupation [facility] Alcoholic beverage intake 2024-08-05 00:00:00 2024-08-05 00:00:00 Current drinker of alcohol (finding) [facility] Alcohol intake 2023-06-21 00:00:00 2023-06-21 00:00:00 Current drinker of alcohol (finding) [facility] Exposure to SARS-CoV-2 (event) 2023-03-09 00:00:00 2023-03-19 07:24:00 Not sure [facility] History of Social function 2019-05-01 00:00:00 2019-05-01 00:00:00 [facility] Tobacco use and exposure 2018-05-29 00:00:00 2018-05-29 00:00:00 Smokeless tobacco non-user [facility] Alcohol Comment 2018-05-29 00:00:00 2018-05-29 00:00:00 weekends / social [facility] Sex assigned at 1990 00:00:00 1990 00:00:00 [facility] Smoking Status Start Date Stop Date Source Never Smoker [facility]ations Ordered Medication Name Filled Medication Name Start Date Stop Date Current Medication? Ordering Clinician Indication Dosage Frequency Signature (SIG) Comments Components Source iopamidol (ISOVUE 370-500 mL) injection 80 mL 05-28 18:30: 00 05-28 18:30 :00 No [id number] 80mL 80 mL, Intravenou s, ONCE, 1 dose, On Sun05/28/25 at 1330, Routine [facility] morpHINE (4 mg/mL) injection 4 mg 05-28 18:00: 00 05-28 17:54 :00 No 4mg 4 mg, Slow IV Push, ONCE, 1 dose, On Sun05/28/25 at 1300, STAT [facility] FENTanyl (PF) (SUBLIMAZE) injection 25 mcg 05-28 16:30: 00 05-28 17:00 :00 No 25ug 25 mcg, Slow IV Push, ONCE, 1 dose, On Sun05/28/25 at 1130, STAT [facility] ondansetron (ZOFRAN (PF)) injection 4 mg 05-28 16:30: 00 05-28 17:01 :00 No 4mg 4 mg, Slow IV Push, ONCE, 1 dose, On Sun05/28/25 at 1130, Administer over 2-5 Minutes, 2 mL [facility] dicyclomine 20 mg tablet 05-28 00:00: 00 06-03 04:59 :00 Yes [id number] 20mg Take 1 tablet by mouth 3 times daily as needed for Abdominal pain for up to 5 days. [facility] ondansetron 4 mg disintegrat ing tablet 05-28 00:00: 00 06-03 04:59 :00 Yes [id number] 4mg Take 1 tablet by mouth every 8 hours as needed for Nausea and Vomiting (N/V) for up to 5 days. [facility] amoxicillin -clavulanat e (AUGMENTIN) 875-125 mg per tablet 1 tablet 2023-10 18:30: 00 08-05 17:53 :00 No 1{tbl} 1 tablet, Oral, ONCE NOW, 1 dose, On Sun08/05/24 at 1330, Routine, Reason for Anti-Infec tive: Documented Infection, Documented Infection Site: Abdominal, Duration of Therapy: Once (ED) [facility] dexamethaso ne sod phos PF injection 10 mg 2023-10 17:45: 00 08-05 17:50 :00 No 10mg 10 mg, Slow IV Push, ONCE, 1 dose, On Sun08/05/24 at 1245, 1 mL [facility] iopamidol (ISOVUE 370-500 mL) injection 100 mL 2023-10 17:30: 00 08-05 17:30 :00 No [id number] 100mL 100 mL, Intravenou s, ONCE, 1 dose, On Sun08/05/24 at 1230, Routine [facility] ondansetron (ZOFRAN (PF)) injection 4 mg 2023-10 16:15: 00 08-05 16:04 :00 No 4mg 4 mg, Slow IV Push, ONCE, 1 dose, On Sun08/05/24 at 1115, TANNER [facility] fentanyl PF (SUBLIMAZE (PF)) injection 50 mcg 2023-10 16:15: 00 08-05 16:06 :00 No 50ug 50 mcg, Slow IV Push, ONCE, 1 dose, On Sun08/05/24 at 1115, STAT [facility] ondansetron 4 mg disintegrat ing tablet 2023-10 00:00: 00 Yes [id number] 4mg Take 1 tablet by mouth every 8 (eight) hours as needed for Nausea and Vomiting (N/V). [facility] dicyclomine 20 mg tablet 2023-10 00:00: 00 Yes [id number] 20mg Take 1 tablet by mouth 4 (four) times daily as needed for Abdominal pain. [facility] amoxicillin -clavulanat e 875-125 mg per tablet 2023-10 00:00: 00 08-13 04:59 :00 No [id number] 1{tbl} Take 1 tablet by mouth every 12 (twelve) hours for 7 days. [facility] tc 99m-mebrofe jose ramon injection 10.2 millicurie 03-05 13:45: 00 03-05 13:12 :00 No [id number] 10.2mCi 10.2 millicurie , Intravenou s, ONCE, 1 dose, On Sun03/05/24 at 0845, Routine [facility] polymyxin B sulf-trimet hoprim 10,000 unit- 1 mg/mL ophthalmic drops 05-10 00:00: 00 Yes [id number] 1[drp] Place 1 Drop in left eye every 4 (four) hours. [facility] ketorolac (TORADOL) injection 30 mg 03-19 13:30: 00 03-19 12:55 :00 No 30mg 30 mg, Slow IV Push, ONCE, 1 dose, On Sun03/19/23 at 0830, Routine [facility] NaCl 0.9% (NS) bolus infusion 1,000 mL 03-19 13:30: 00 03-19 13:52 :00 No 1000mL at 999 mL/hr, 1,000 mL, IV Infusion, ONCE, 1 dose, On Sun03/19/23 at 0830, TANNER [facility] diphenhydrA MINE (BENADRYL) injection 25 mg 03-19 12:45: 00 03-19 12:55 :00 No 25mg 25 mg, Slow IV Push, ONCE, 1 dose, On Sun03/19/23 at 0745, STAT [facility] metoclopram faheem HCl (REGLAN) injection 10 mg 03-19 12:45: 00 03-19 12:55 :00 No 10mg 10 mg, Slow IV Push, ONCE, 1 dose, On Sun03/19/23 at 0745, TANNER [facility] famotidine (PEPCID (PF)) injection 20 mg 06-18 20:30: 00 06-18 19:33 :00 No 20mg 20 mg, Slow IV Push, ONCE, 1 dose, On Sun06/18/22 at 1530, Routine [facility] NaCl 0.9% (NS) bolus infusion 1,000 mL 06-18 20:15: 00 06-18 20:13 :00 No 1000mL at 999 mL/hr, 1,000 mL, IV Infusion, ONCE, 1 dose, [facility]06/18/22 at 1515[facility] en[facility]AMINE :lidocaine 2 % viscous 1:1:1 (FIRST-MOUT HWASH BLM) oral suspension 15 mL 06-18 20:00: 00 06-18 20:08 :00 No 15mL 15 mL, Oral, ONCE, 1 dose, On Sun06/18/22 at 1500, [facility] ketorolac (TORADOL) injection 30 mg 06-18 19:30: 00 06-18 19:32 :00 No 30mg 30 mg, Slow IV Push, ONCE, 1 dose, On 06/18/22 at 1430, [facility] ondansetron (ZOFRAN (PF)) injection 4 mg 06-18 19:30: 00 06-18 19:33 :00 No 4mg 4 mg, Slow IV Push, ONCE, 1 dose, On 06/18/22 at 1430, [facility] ondansetron 4 mg disintegrat ing tablet 06-18 00:00: 00 Yes [id number] 4mg Take 1 tablet by mouth every 8 (eight) hours as needed for Nausea and Vomiting (N/V). [facility] meloxicam 7.5 mg tablet 2019-10 00:00: 00 Yes [id number] 13021 7.5mg Take 1 tablet by mouth daily. [facility] ondansetron (ZOFRAN ODT) 4 mg disintegrat ing tablet 05-24 00:00: 00 05-30 04:59 :00 No [id number] 4mg Take 1 tablet by mouth every 8 (eight) hours as needed for Nausea and Vomiting (N/V) for up to 5 days. [facility] HYDROcodone -acetaminop hen 5-325 mg tablet 07-17 00:00: 00 Yes 1{tbl} Take 1 tablet by mouth every 6 (six) hours as needed for Pain (scale 4-6) or Pain (scale 7-10). [facility] Mounjaro Mounjaro No Mounjaro [facility] Sprintec (28) 0.25 mg-0.035 mg tablet Take 1 tablet every day by oral route for 90 days. Sprintec (28) 0.25 mg-0.035 mg tablet Take 1 tablet every day by oral route for 90 days. No 1 Q1D Sprintec (28) 0.25 mg-0.035 mg tablet Take 1 tablet every day by oral route for 90 days. [facility] Immunizations Ordered Immunization Name Filled Immunization Name Date Status Comments Source SARS-COV-2 COVID-19 MODERNA 12+ YRS VACCINE 2024-03-05 07:30:04 Completed [facility] SARS-COV-2 COVID-19 MODERNA VACCINE 2021-01-24 00:00:00 Completed [facility] SARS-COV-2 COVID-19 MODERNA VACCINE 2021-01-24 00:00:00 Completed [facility] SARS-COV-2 COVID-19 MODERNA 12+ YRS VACCINE 2021-01-24 00:00:00 Completed [facility] SARS-COV-2 COVID-19 MODERNA 12+ YRS VACCINE 2021-01-24 00:00:00 Completed [facility] SARS-COV-2 COVID-19 MODERNA 12+ YRS VACCINE 2021-01-24 00:00:00 Completed [facility] SARS-COV-2 COVID-19 MODERNA 12+ YRS VACCINE 2021-01-24 00:00:00 Completed [facility] SARS-COV-2 COVID-19 MODERNA 12+ YRS VACCINE 2021-01-24 00:00:00 Completed [facility] SARS-COV-2 COVID-19 MODERNA VACCINE 2020-12-27 00:00:00 Completed [facility] SARS-COV-2 COVID-19 MODERNA VACCINE 2020-12-27 00:00:00 Completed [facility] SARS-COV-2 COVID-19 MODERNA 12+ YRS VACCINE 2020-12-27 00:00:00 Completed [facility] SARS-COV-2 COVID-19 MODERNA 12+ YRS VACCINE 2020-12-27 00:00:00 Completed [facility] SARS-COV-2 COVID-19 MODERNA 12+ YRS VACCINE 2020-12-27 00:00:00 Completed [facility] SARS-COV-2 COVID-19 MODERNA 12+ YRS VACCINE 2020-12-27 00:00:00 Completed [facility] SARS-COV-2 COVID-19 MODERNA 12+ YRS VACCINE 2020-12-27 00:00:00 Completed [facility] Vital Signs Vital Name Observation Time [...] Systolic blood pressure 2025-05-28 18:45:00 124 mm[Hg] [facility] Diastolic blood pressure 2025-05-28 18:45:00 85 mm[Hg] [facility] Heart rate 2025-05-28 18:45:00 66 /min [facility] Body temperature 2025-05-28 18:45:00 36.17 Rosa M [facility] Respiratory rate 2025-05-28 18:45:00 16 /min [facility] Oxygen saturation in Arterial blood by Pulse oximetry 2025-05-28 18:45:00 100 /min [facility] Body height 2025-05-28 16:16:00 152.4 cm [facility] Body weight 2025-05-28 16:16:00 80.74 kg [facility] BMI 2025-05-28 16:16:00 34.76 kg/m2 [facility] Systolic blood pressure 2024-08-05 17:53:00 124 mm[Hg] [facility] Diastolic blood pressure 2024-08-05 17:53:00 83 mm[Hg] [facility] Heart rate 2024-08-05 17:53:00 57 /min [facility] Body temperature 2024-08-05 17:53:00 36.94 Rosa M [facility] Respiratory rate 2024-08-05 17:53:00 18 /min [facility] Oxygen saturation in Arterial blood by Pulse oximetry 2024-08-05 17:53:00 100 /min [facility] Body height 2024-08-05 15:37:00 152.4 cm [facility] Body weight 2024-08-05 15:37:00 80.74 kg [facility] BMI 2024-08-05 15:37:00 34.76 kg/m2 [facility] Systolic blood pressure 2023-06-21 18:00:00 137 mm[Hg] [facility] Diastolic blood pressure 2023-06-21 18:00:00 93 mm[Hg] [facility] Heart rate 2023-06-21 18:00:00 116 /min [facility] Body temperature 2023-06-21 18:00:00 37.11 Rosa M [facility] Respiratory rate 2023-06-21 18:00:00 16 /min [facility] Body height 2023-06-21 18:00:00 152.4 cm [facility] Body weight 2023-06-21 18:00:00 97.07 kg [facility] BMI 2023-06-21 18:00:00 41.79 kg/m2 [facility] Oxygen saturation in Arterial blood by Pulse oximetry 2023-06-21 18:00:00 100 /min [facility] Systolic blood pressure 2023-05-10 20:17:17 132 mm[Hg] [facility] Diastolic blood pressure 2023-05-10 20:17:17 81 mm[Hg] [facility] Heart rate 2023-05-10 20:17:17 90 /min [facility] Respiratory rate 2023-05-10 20:17:17 16 /min [facility] Oxygen saturation in Arterial blood by Pulse oximetry 2023-05-10 20:17:17 100 /min [facility] Body temperature 2023-05-10 19:34:05 36.89 Rosa M [facility] Body height 2023-05-10 19:20:00 152.4 cm [facility] Body weight 2023-05-10 19:20:00 102.059 kg [facility] BMI 2023-05-10 19:20:00 43.94 kg/m2 [facility] Systolic blood pressure 2023-03-19 13:53:00 125 mm[Hg] [facility] Diastolic blood pressure 2023-03-19 13:53:00 83 mm[Hg] [facility] Heart rate 2023-03-19 13:53:00 55 /min [facility] Respiratory rate 2023-03-19 13:53:00 14 /min [facility] Oxygen saturation in Arterial blood by Pulse oximetry 2023-03-19 13:53:00 98 /min [facility] Body temperature 2023-03-19 12:26:00 37.22 Rosa M [facility] Body height 2023-03-19 12:26:00 152.4 cm [facility] Body weight 2023-03-19 12:26:00 102.059 kg [facility] BMI 2023-03-19 12:26:00 43.94 kg/m2 [facility] Systolic blood pressure 2022-06-18 20:00:00 113 mm[Hg] [facility] Diastolic blood pressure 2022-06-18 20:00:00 76 mm[Hg] [facility] Heart rate 2022-06-18 20:00:00 64 /min [facility] Respiratory rate 2022-06-18 20:00:00 15 /min [facility] Oxygen saturation in Arterial blood by Pulse oximetry 2022-06-18 20:00:00 99 /min [facility] Body temperature 2022-06-18 19:13:00 36.89 Rosa M [facility] Body height 2022-06-18 19:13:00 152.4 cm [facility] Body weight 2022-06-18 19:13:00 95.709 kg [facility] BMI 2022-06-18 19:13:00 41.21 kg/m2 [facility] Systolic blood pressure 2020-11-23 04:00:00 125 mm[Hg] [facility] Diastolic blood pressure 2020-11-23 04:00:00 75 mm[Hg] [facility] Heart rate 2020-11-23 04:00:00 79 /min [facility] Body temperature 2020-11-23 04:00:00 37 Rosa M [facility] Respiratory rate 2020-11-23 04:00:00 16 /min [facility] Oxygen saturation in Arterial blood by Pulse oximetry 2020-11-23 04:00:00 98 /min [facility] Body weight 2020-11-23 02:18:00 87.091 kg [facility] BMI 2020-11-23 02:18:00 37.50 kg/m2 [facility] Systolic blood pressure 2020-11-23 04:00:00 125 mm[Hg] [facility] Diastolic blood pressure 2020-11-23 04:00:00 75 mm[Hg] [facility] Heart rate 2020-11-23 04:00:00 79 /min [facility] Body temperature 2020-11-23 04:00:00 37 Rosa M [facility] Respiratory rate 2020-11-23 04:00:00 16 /min [facility] Oxygen saturation in Arterial blood by Pulse oximetry 2020-11-23 04:00:00 98 /min [facility] Body weight 2020-11-23 02:18:00 87.091 kg [facility] BMI 2020-11-23 02:18:00 37.50 kg/m2 [facility] Systolic blood pressure 2020-09-07 21:14:00 124 mm[Hg] [facility] Diastolic blood pressure 2020-09-07 21:14:00 84 mm[Hg] [facility] Heart rate 2020-09-07 21:14:00 77 /min [facility] Body height 2020-09-07 21:14:00 152.4 cm [facility] Body weight 2020-09-07 21:14:00 84.369 kg [facility] BMI 2020-09-07 21:14:00 36.33 kg/m2 [facility] Systolic blood pressure 2020-09-07 21:14:00 124 mm[Hg] [facility] Diastolic blood pressure 2020-09-07 21:14:00 84 mm[Hg] [facility] Heart rate 2020-09-07 21:14:00 77 /[facility] Body height 2020-09-07 21:14:00 152.4 cm [facility] Body weight 2020-09-07 21:14:00 84.369 kg [facility] BMI 2020-09-07 21:14:00 36.33 kg/m2 [facility] Systolic blood pressure 2020-05-24 20:55:00 133 mm[Hg] [facility] Diastolic blood pressure 2020-05-24 20:55:00 86 mm[Hg] [facility] Heart rate 2020-05-24 20:53:00 63 /min [facility] Body temperature 2020-05-24 20:53:00 37 Rosa M [facility] Respiratory rate 2020-05-24 20:53:00 18 /min [facility] Body height 2020-05-24 20:53:00 152.4 cm [facility] Body weight 2020-05-24 20:53:00 83.008 kg [facility] BMI 2020-05-24 20:53:00 35.74 kg/m2 [facility] Oxygen saturation in Arterial blood by Pulse oximetry 2020-05-24 20:53:00 98 /min [facility] Procedures Procedure Date / Time Performed Performing Clinician Source COMP. METABOLIC PANEL ([id number]) 2025-05-28 17:48:00 Jimbo Hernandez [facility] CT ABDOMEN PELVIS W CONTRAST 2025-05-28 17:41:46 Jimbo Hernandez [facility] AMYLASE 2025-05-28 16:53:00 Jimbo Hernandez [facility] LIPASE 2025-05-28 16:53:00 Hanane Jimbo Hector [facility] MAGNESIUM 2025-05-28 16:53:00 Hanane Jimbo Young [facility] TROPONIN I 2025-05-28 16:53:00 Hanane Jimbo Young [facility] HEPATIC FUNCTION PANEL ([id number]) (ALB,T.PRO,BILI T,BU/BC,ALT,AST,ALK PHOS) 2025-05-28 16:53:00 Hanane Jimbo Young [facility] BASIC METABOLIC PANEL (NA, K, CL, CO2, GLUCOSE, BUN, CREATININE, CA) 2025-05-28 16:53:00 Hanane Jimbo Hector [facility] CBC WITH DIFF 2025-05-28 16:53:00 Hanane Jimbo Young [facility] URINALYSIS 2025-05-28 16:53:00 Hanane Jimbo Hector [facility] POCT TEST 2025-05-28 16:53:00 Dionisio Hernandez Hector [facility] POCT TEST 2024-08-05 15:47:00 Margi Washington [facility] LIPASE 2024-08-05 15:46:00 [facility] COMP. METABOLIC PANEL ([id number]) 2024-08-05 15:46:00 Marv Washington [facility] CBC WITH DIFF 2024-08-05 15:46:00 Marv Washington [facility] URINALYSIS 2024-08-05 15:46:00 [facility] NM HEPATOBILIARY W INTERVENTION 2024-03-05 15:07:49 Yudith Jacobo [facility] CONSENT/REFUSAL FOR DIAGNOSIS AND TREATMENT 2023-06-21 18:20:39 Doctor Unassigned, [place] [facility] CONSENT/REFUSAL FOR DIAGNOSIS AND TREATMENT 2023-05-10 19:15:29 Doctor Unassigned, [place] [facility] CONSENT/REFUSAL FOR DIAGNOSIS AND TREATMENT 2023-03-19 12:24:31 Doctor Unassigned, [place] [facility] POCT TEST 2022-06-18 19:35:00 Anne Costa ra [facility] LIPASE 2022-06-18 19:25:00 [facility] COMP. METABOLIC PANEL ([id number]) 2022-06-18 19:25:00 Rekha Costa [facility] CBC WITH DIFF 2022-06-18 19:25:00 [facility] 2022-06-18 19:25:00 Rekha Costa Un [facility] CONSENT/REFUSAL FOR DIAGNOSIS AND TREATMENT 2022-06-18 19:06:07 Doctor Unassigned, [place] [facility] [id number] 2022-05-14 00:00:00 [place] [facility] [id number] 2021-05-06 00:00:00 [facility] [id number] 2021-05-06 00:00:00 [facility] URINALYSIS 2020-11-23 03:41:00 Moon Lenz [facility] RAPID STREP SCREEN FOR GROUP A 2020-11-23 02:44:00 Moon Lenz [facility] ADC,CLC OR LCC ONLY - INFLUENZA A & B DIRECT ANTIGEN 2020-11-23 02:44:00 Moon Lenz [facility] NOTICE OF PRIVACY PRACTICES 2020-11-23 02:15:37 Doctor Unassigned, [place] [facility] CONSENT/REFUSAL FOR DIAGNOSIS AND TREATMENT 2020-11-23 02:15:15 Doctor Unassigned, [place] [facility] NO SHOW OR MISSED APPOINTMENT POLICY ACKNOWLEDGEMENT 2020-09-07 20:57:09 Doctor Unassigned, [place] [facility] [id number] 2019-11-06 00:00:00 [facility] Medical Laparoscopic Sleeve Gastrectomy [facility] Medical Repair of Anterior Cruciate Ligament of Knee Joint [facility] Hernia Repair [facility] Medical Appendectomy [facility] Medical Encounters Start Date/Time End Date/Time Encounter Type Admission Type Attending Clinicians Care Facility Care Department Encounter ID Source 2022-06-23 12:30:00 Inpatient Abel Davis [facility] LD [id number] [facility] 2022-06-21 10:00:00 Inpatient Abel Davis [facility] LD [id number] [facility] 2022-05-12 09:58:00 Inpatient Abel Gandhi [facility] OBPP [id number] [facility] 2021-08-20 21:07:55 Emergency [facility] [id number] [facility] 2021-05-18 10:30:00 Inpatient Abel Davis [facility] CARE [id number] [facility] 2021-01-04 10:00:00 Inpatient Abel Mcgovern [facility] [id number] [facility] 2020-09-28 10:37:00 Inpatient Onur Paula [facility] [id number] [facility] 2020-09-13 07:45:00 Inpatient Onur Paula [facility]I [id number] [facility] 2019-11-05 18:18:00 Inpatient Mario Chappell [facility] LD [id number] [facility] 2019-10-31 19:15:00 Inpatient Mario Ferrer [facility] ZENAIDA [id number] [facility] 2025-07-27 00:00:00 2025-07-27 00:00:00 KATHERINE Beal: [address], [place] [address] , Ph. [facility]GCBZW[facility]* [id number] [facility] 2025-06-10 00:00:00 2025-06-10 00:00:00 KATHERINE Beal: [address], [place] [address] , Ph. [facility] [id number] [facility] 2025-05-28 11:17:00 2025-05-28 13:47:00 Emergency X JIMBO HERNANDEZ [facility] ERT [id number] [facility] 2024-08-05 10:38:00 2024-08-05 12:58:00 Emergency X MARV WASHINGTON MARV [facility] ERT [id number] [facility] 2024-08-05 10:38:00 2024-08-05 12:58:00 Emergency Marv Washington [facility] 1.2.840.114 350.1.13.10 4.2.7.2.686 [id number] [facility] 2024-03-05 07:30:04 2024-03-05 23:59:00 Outpatient R RADIOLOGY [facility] [id number] [facility] 2024-03-05 07:30:04 2024-03-05 23:59:00 Hospital Encounter Radiology [facility] 1.2.840.114 350.1.13.10 4.2.7.2.686 [id number] [facility] 2024-02-26 15:00:00 2024-02-26 15:00:00 Outpatient R KULDIP BEAR OGECHUKWU [facility] [id number] [facility] 2023-06-21 13:29:00 2023-06-21 14:03:00 Emergency X REKHA COSTA [facility] ERT [id number] [facility] 2023-06-21 13:29:00 2023-06-21 14:03:00 Emergency Rekha Costa [facility] 1..840.114 350.1.13.10 4.2.7.2.686 [id number] [facility] 2023-06-21 00:00:00 2023-06-21 00:00:00 Letter (Out) Eufemia Tejada [facility] 1.284.114 350.1.13.10 4.2.7.2.686 [id number] [facility] 2023-05-10 14:22:00 2023-05-10 15:28:00 Emergency X SINGER GROVER [facility] ERT [id number] [facility] 2023-05-10 14:22:00 2023-05-10 15:28:00 Emergency Grover Monson [facility] 1.284.114 350.1.13.10 4.2.7.2.686 [id number] [facility] 2023-03-19 07:27:00 2023-03-19 08:55:00 Emergency X REKHA COSTA [facility] ERT [id number] [facility] 2023-03-19 07:27:00 2023-03-19 08:55:00 Emergency Rekha Costa [facility] 1.284.114 350.1.13.10 4.2.7.2.686 [id number] [facility] 2022-06-18 14:16:00 2022-06-18 15:19:00 Emergency X REKHA COSTA [facility] ERT [id number] [facility] 2022-06-18 14:16:00 2022-06-18 15:19:00 Emergency Rekha Costa [facility] 1.284.114 350.1.13.10 4.2.7.2.686 [id number] [facility] 2022-06-18 00:00:00 2022-06-18 00:00:00 Orders Only Doctor Unassigned, [place] [facility] 1.2.114 350.1.13.10 4.2.7.2.686 [id number] [facility] 2022-05-12 09:58:00 2022-05-18 19:37:00 Inpatient EM ChrisAbel bates [facility] OBPP [id number] [facility] 2022-04-14 14:48:00 2022-04-14 18:15:00 [facility] [id number] [facility] 2022-04-14 14:48:00 2022-04-14 18:15:00 Emergency EM Chris, [facility] [id number] [facility] 2022-04-05 21:56:00 2022-04-06 01:00:00 [facility] Z[facility] [id number] [facility] 2022-04-05 21:56:00 2022-04-06 01:00:00 Emergency EL Chris [facility] [id number] [facility] 2022-03-02 14:10:00 2022-03-02 16:25:00 Emergency EM Chris [facility] ZENAIDA [id number] [facility] 2022-03-02 14:10:00 2022-03-02 16:25:00 Emergency EM Chris [facility] [id number] [facility] 2021-05-06 13:00:00 2021-05-08 13:22:00 [facility] OB[facility] [id number] [facility] 2021-05-06 14:52:00 2021-05-06 14:52:00 [id number] [facility] 2021-04-20 16:09:00 2021-04-20 19:42:00 Emergency EM Abel Mcgovern [facility] ZENAIDA [id number] [facility] 2021-04-01 13:02:00 2021-04-01 13:39:00 Emergency EM Abel Mcgovern [facility] ZENAIDA [id number] [facility] 2021-01-24 09:30:00 2021-01-24 09:30:00 Outpatient [facility] [id number] [facility] 2020-12-27 09:40:00 2020-12-27 09:40:00 Outpatient TOBY ARIAS [facility] [id number] [facility] 2020-11-23 00:00:00 2020-11-23 00:00:00 Letter (Out) [facility] 1.2.840.114 350.1.13.10 4.2.7.2.686 [id number] [facility] 2020-11-23 00:00:00 2020-11-23 00:00:00 Letter (Out) [facility] 1.2.840.114 350.1.13.10 4.2.7.2.686 [id number] 2020-11-22 20:20:00 2020-11-22 22:26:[address] [facility] 1.2.840.114 350.1.13.10 4.2.7.2.686 [id number] [facility] 2020-11-22 20:20:00 2020-11-22 22:26:[address] [facility] 1.2.840.114 350.1.13.10 4.2.7.2.686 [id number] 2020-09-07 15:52:38 2020-09-07 23:59:00 Hospital Liam Sanches [facility] 1.2.840.114 350.1.13.10 4.2.7.2.686 [id number] [facility] 2020-09-07 15:52:38 2020-09-07 23:59:00 Hospital Encounter [facility] 1.2.840.114 350.1.13.10 4.2.7.2.686 [id number] 2020-09-07 15:15:00 2020-09-07 15:15:00 Outpatient R EDUARD [facility] [id number] [facility] 2020-09-07 14:57:36 2020-09-07 15:12:36 Office Visit [facility] 1.2.840.114 350.1.13.10 4.2.7.2.686 [id number] [facility] 2020-09-07 14:57:36 2020-09-07 15:12:36 Office Visit [facility] [place] 1.2.840.114 350.1.13.10 4.2.7.2.686 [id number] 2020-09-07 00:00:00 2020-09-07 00:00:00 Orders Only Doctor Unassigned, [place] [facility] 1.2.840.114 350.1.13.10 4.2.7.2.686 [id number] [facility] 2020-09-06 14:30:00 2020-09-06 14:30:00 Outpatient R NILSON REED [facility] [id number] [facility] 2020-05-25 00:00:00 2020-05-25 00:00:00 Telephone Archana Mendoza [facility] 1.2.840.114 350.1.13.10 4.2.7.2.686 [id number] [facility] 2020-05-24 15:45:59 2020-05-24 16:12:06 Urgent Care Pob[facility], Acute Care Clinic Maia Hahn [facility] Office [facility] 1.2.840.114 350.1.13.10 4.2.7.2.686 [id number] [facility] 2020-05-24 15:40:00 2020-05-24 16:12:06 Outpatient R MAIA HAHN [facility] [id number] [facility] 2019-11-06 11:17:00 2019-11-06 11:17:00 Outpatient Mario Ferrer [facility] [id number] [facility] 2019-10-29 08:30:00 2019-10-29 08:30:00 Outpatient Mario Ferrer [facility] RADI [id number] [facility] 2019-10-20 22:55:00 2019-10-21 01:55:00 Emergency EM Mario Ferrer [facility] ZENAIDA [id number] [facility] Results Test Description Test Time Test Comments Results Result Co mments Source [facility]. Metabolic Panel (84667)2025-05-28 18:33:01* Test Item Value Reference Range Interpretation Comme nts NA (test code = 4602473545) 134 mmol/L 135-145 L K (test code = 0959981547) 4.1 mmol/L 3.5-5.0 CL (test code = 2744572675) 105 mmol/L 98-108 CO2 TOTAL (test code = 6374448049) 24 mmol/L 23-31 AGAP (test code = 1571865339) 5 2-16 BUN (test code = 5211979642) 8 mg/dL 7-23 GLUCOSE (test code = 2789562925) 72 mg/dL 70-110 CREATININE (test code = 2160-0) 0.57 mg/dL 0.50-1.04 TOTAL BILI (test code = 5370181563) 0.4 mg/dL 0.1-1.1 CALCIUM (test code = 8036118479) 8.9 mg/dL 8.6-10.6 T PROTEIN (test code = 1372214983) 6.5 g/dL 6.3-8.2 ALBUMIN (test code = 0082147983) 3.7 g/dL 3.5-5.0 ALK PHOS (test code = 6350286423) 50 U/L 34-122 ALTv (test code = 1742-6) 15 U/L 5-35 AST(SGOT) (test code = 5158244801) 18 U/L 13-40 eGFR (test code = 44197-8) 124 mL/min/1.73m2 CKD-EPI eGFR (2020). Assuming creatinine has been stable day-to-day for at least three months, the eGFR indicates Category G1 (>= 90 mL/min/1.73 m2) Lab Interpretation (test code = 02336-4) [facility] [id number] 18:09:15CT ABDOMEN PELVIS W CONTRAST 05/28/2025 12:22 [...] acute osseousabnormality. Small periumbilical fat- containing hernia withoutcomplication.[facility] Hospital[facility]roponin [id number] 18:04:38* Test Item Value Reference Range Interpretation Comme nts TROPONIN I (test code = 5128176826) 0.002 ng/mL <=0.034 MICHAEL (test code = [...] of biotin. Lab Interpretation (test code = 87947-3) Normal [facility]2025-08-07 17:50:31* Test Item Value Reference Range Interpretation Comme nts LIPASE (test code = 5128230399) 95 U/L 0-220 Lab Interpretation (test cod e = 66364-2) Normal [facility] FUNCTION PANEL (20730) (ALB,T.PRO,BILI T,BU/BC,ALT,AST,ALK PHOS)2025-05-28 17:50:31* Test Item Value Reference Range Interpretation Comme nts TOTAL BILI (test code = 9865166489) 0.5 mg/dL 0.1-1.1 BILI UNCON (test code = 6510030278) 0.4 mg/dL 0.1-1.1 BILI CONJ (test code = 9780014095) 0 mg/dL 0.0-0.3 T PROTEIN (test code = 1724924812) 7.5 g/dL 6.3-8.2 ALBUMIN (test code = 7773568137) 4.3 g/dL 3.5-5.0 ALK PHOS (test code = 0886425719) 52 U/L 34-122 ALTv (test code = 1742-6) 17 U/L 5-35 AST(SGOT) (test code = 1007039859) 21 U/L 13-40 Lab Interpretation (test cod e = 46708-8) Normal [facility]esium2025-08-07 17:50:31* Test Item Value Reference Range Interpretation Comme nts MAGNESIUM (test code = 8974650099) 1.9 mg/dL 1.7-2.4 Lab Interpretation (test cod e = 31431-0) Normal [facility] METABOLIC PANEL (NA, K, CL, CO2, GLUCOSE, BUN, CREATININE, CA)2025-05-28 17:50:10* Test Item Value Reference Range Interpretation Comme nts NA (test code = 6084007280) 138 mmol/L 135-145 K (test code = 7296318793) 4.3 mmol/L 3.5-5.0 CL (test code = 0710652751) 106 mmol/L 98-108 CO2 TOTAL (test code = 9960981448) 25 mmol/L 23-31 AGAP (test code = 0088718317) 7 2-16 BUN (test code = 4489664584) 9 mg/dL 7-23 GLUCOSE (test code = 0689078529) 77 mg/dL 70-110 CREATININE (test code = 2160-0) 0.59 mg/dL 0.50-1.04 CALCIUM (test code = 2732599451) 9.4 mg/dL 8.6-10.6 eGFR (test code = 42474-7) 123 mL/min/1.73m2 CKD-EPI eGFR (20 21). Assuming creatinine has been stable day-to-day for at least three months, the eGFR indicates Category G1 (>= 90 mL/min/1.73 m2) [facility]2025-[facility] 17:49:29* Test Item Value Reference Range Interpretation Comme nts FINN (test code = 5399081563) 85 U/L 35-110 Lab Interpretation (test cod e = 39134-5) Normal [facility] WITH [id number] 17:43:30* Test Item Value Reference Range Interpretation [...] 33.1 g/dL 31.6-35.1 RDW-SD (test code = 68565-8) 42.4 fL 39.0-49.9 RDW-CV (test code = 788-0) 12.1 % 12.0-15.5 PLT (test code = 777-3) 295 166-358 MPV (test code = 93925-7) 10.7 fL 9.5-12.9 NRBC/100 WBC (test code = 8579396736) 0 0.0-10.0 NRBC x10^3 (test code = 5739580011) See_Comment [Automated messa ge] The system which generated this result transmitted reference range: 10*3/?L. The reference range was not used to interpret this result as normal/abnormal. GRAN MAT (NEUT) % (test code = 770-8) 56.7 % IMM GRAN % (test code = 1683293326) 0.5 % LYMPH % (test code = 736-9) 33.1 % MONO % (test code = 5905-5) 6.6 % EOS % (test code = 713-8) 2.1 % BASO % (test code = 706-2) 1 % GRAN MAT x10^3(ANC) (test code = 4857594209) 5.66 10*3/uL 1.88-7.09 IMM GRAN x10^3 (test code = 2351961473) 0.05 10*3/uL 0.00-0.06 LYMPH x10^3 (test code = 731-0) 3.31 10*3/uL 1.32-3.29 H MONO x10^3 (test code = 742-7) 0.66 10*3/uL 0.33-0.92 EOS x10^3 (test code = 711-2) 0.21 10*3/uL 0.03-0.39 BASO x10^3 (test code = 704-7) 0.1 10*3/uL 0.01-0.07 H Lab Interpretation (test code = 32199-0) [facility]normal [facility] [id number] 17:03:00* Test Item Value Reference Range Interpretation Comme nts POCT PREG (test code = 1605) Negative On board controls acceptable with C Line (test code = 3574) Yes POCT PREG LOT # (test code = 3575) [id number] POCT PREG TEST DATE ( test code = 3576) Lab Interpretation (test cod e = 78765-4) Normal [facility]. METABOLIC PANEL (94441)2024-08-05 16:32:06* Test Item Value Reference Range Interpretation Comme nts NA (test code = 1838456655) 137 mmol/L 135-145 K (test code = 6665890222) 4.0 mmol/L 3.5-5.0 CL (test code = 8285028398) 105 mmol/L 98-108 CO2 TOTAL (test code = 9669107676) 26 mmol/L 23-31 AGAP (test code = 4818579752) 6 2-16 BUN (test code = 6164822083) 7 mg/dL 7-23 GLUCOSE (test code = 5839927883) 89 mg/dL 70-110 CREATININE (test code = 2160-0) 0.61 mg/dL 0.50-1.04 TOTAL BILI (test code = 3838624604) 0.8 mg/dL 0.1-1.1 CALCIUM (test code = 6499292068) 9.2 mg/dL 8.6-10.6 T PROTEIN (test code = 6750580322) 7.6 g/dL 6.3-8.2 ALBUMIN (test code = 0681806707) 4.4 g/dL 3.5-5.0 ALK PHOS (test code = 1821261955) 59 U/L 34-122 ALTv (test code = 1742-6) 16 U/L 5-35 AST(SGOT) (test code = 1211955303) 40 U/L 13-40 eGFR (test code = 75123-5) 122.8 mL/min/1.73m2 CKD-EPI eGFR (20 21). Assuming creatinine has been stable day-to-day for at least three months, the eGFR indicates Category G1 (>= 90 mL/min/1.73 m2) [facility] 16:31:45* Test Item Value Reference Range Interpretation Comme nts LIPASE (test code = 2843595608) 104 U/L 0-220 Lab Interpretation (test cod e = 08183-5) Normal [facility] WITH [id number] 16:11:25* Test Item Value Reference Range Interpretation [...] 33.8 g/dL 31.6-35.1 RDW-SD (test code = 19461-3) 40.7 fL 39.0-49.9 RDW-CV (test code = 788-0) 11.7 % 12.0-15.5 L PLT (test code = 777-3) 334 166-358 MPV (test code = 52248-6) 10.4 fL 9.5-12.9 NRBC/100 WBC (test code = 6451898937) 0.0 0.0-10.0 NRBC x10^3 (test code = 0993427723) See_Comment [Automated messa ge] The system which generated this result transmitted reference range: 10*3/?L. The reference range was not used to interpret this result as normal/abnormal. GRAN MAT (NEUT) % (test code = 770-8) 63.5 % IMM GRAN % (test code = 2561859753) 0.40 % LYMPH % (test code = 736-9) 28.0 % MONO % (test code = 5905-5) 6.2 % EOS % (test code = 713-8) 1.3 % BASO % (test code = 706-2) 0.6 % GRAN MAT x10^3(ANC) (test code = 2971595428) 7.24 10*3/uL 1.88-7.09 H IMM GRAN x10^3 (test code = 4384341486) 0.05 10*3/uL 0.00-0.06 LYMPH x10^3 (test code = 731-0) 3.20 10*3/uL 1.32-3.29 MONO x10^3 (test code = 742-7) 0.71 10*3/uL 0.33-0.92 EOS x10^3 (test code = 711-2) 0.15 10*3/uL 0.03-0.39 BASO x10^3 (test code = 704-7) 0.07 10*3/uL 0.01-0.07 Lab Interpretation (test code = 71675-0) Abnormal [facility] [id number] 15:47:00* Test Item Value Reference Range Interpretation Comme nts POCT PREG (test code = 1605) Negative On board controls acceptable with C Line (test code = 3574) Yes POCT PREG LOT # (test code = 3575) [id number] POCT PREG TEST DATE ( test code = 3576) 07-26-2025 Lab Interpretation (test cod e = 07375-6) Normal [facility] METABOLIC PANEL (82651)2022-06-18 19:48:09* Test Item Value Reference Range Interpretation Comme nts NA (test code = 7089752422) 142 mmol/L 135-145 K (test code = 9345982177) 4.0 mmol/L 3.5-5 CL (test code = 8655377459) 110 mmol/L 98-108 H CO2 TOTAL (test code = 0377408298) 26 mmol/L 23-31 AGAP (test code = 0566506135) 2-16 BUN (test code = 0908687388) 10 mg/dL 7-23 GLUCOSE (test code = 4460162470) 85 mg/dL 70-110 CREATININE (test code = 8724882469) 0.61 mg/dL 0.5-1.04 TOTAL BILI (test code = 4644646794) 0.2 mg/dL 0.1-1.1 CALCIUM (test code = 5576631949) 8.9 mg/dL 8.6-10.6 T PROTEIN (test code = 3517645383) 6.5 g/dL 6.3-8.2 ALBUMIN (test code = 8214156482) 4.0 g/dL 3.5-5 ALK PHOS (test code = 4243192872) 88 U/L 34-122 ALTv (test code = 1742-6) 31 U/L 5-35 AST(SGOT) (test code = 7644663519) 34 U/L 13-40 eGFR (test code = 8659733704) mL/min/1.73m2 MICHAEL (test code = MICHAEL) Association [...] imaging tests). Lab Interpretation (test code = 99395-3) Abnormal [facility]22-[facility] 19:48:09* Test Item Value Reference Range Interpretation Comme nts LIPASE (test code = 2732449987) 138 U/L 0-220 Lab Interpretation (test cod e = 40485-8) Normal [facility] WITH [id number] 19:40:05* Test Item Value Reference Range Interpretation [...] g/dL 31.6-35.1 L RDW-SD (test code = 96911-4) 45.1 fL 39-49.9 RDW-CV (test code = 788-0) 14.1 % 12-15.5 PLT (test code = 777-3) See_Comment [Automated messa ge] The system which generated this result transmitted reference range: 166 - 358 10*3/?L. The reference range was not used to interpret this result as normal/abnormal. MPV (test code = 56722-9) 10.2 fL 9.5-12.9 NRBC/100 WBC (test code = 9629044651) See_Comment [Automated me ssage] The system which generated this result transmitted reference range: 0.0 - 10.0 /100 WBCs. The reference range was not used to interpret this result as normal/abnormal. NRBC x10^3 (test code = 5521691297) See_Comment [Automated messa ge] The system which generated this result transmitted reference range: 10*3/?L. The reference range was not used to interpret this result as normal/abnormal. GRAN MAT (NEUT) % (test code = 770-8) 54.5 % IMM GRAN % (test code = 4561040783) 0.20 % LYMPH % (test code = 736-9) 26.9 % MONO % (test code = 5905-5) 11.2 % EOS % (test code = 713-8) 6.1 % BASO % (test code = 706-2) 1.1 % GRAN MAT x10^3(ANC) (test code = 0362468893) 3.61 10*3/uL 1.88-7.09 IMM GRAN x10^3 (test code = 4951329504) 0-0.06 LYMPH x10^3 (test code = 731-0) 1.78 10*3/uL 1.32-3.29 MONO x10^3 (test code = 742-7) 0.74 10*3/uL 0.33-0.92 EOS x10^3 (test code = 711-2) 0.40 10*3/uL 0.03-0.39 H BASO x10^3 (test code = 704-7) 0.07 10*3/uL 0.01-0.07 Lab Interpretation (test code = 89011-4) Abnormal [facility] [id number] 19:35:00* Test Item Value Reference Range Interpretation Comme nts POCT PREG (test code = 1605) Negative On board controls acceptable with C Line (test code = 3574) Present POCT PREG LOT # (test code = 3575) [id number] POCT PREG TEST DATE ( test code = 3576) 08-21-2023 Lab Interpretation (test cod e = 34772-0) [facility] [id number] 10:11:00* Test Item Value Reference Range Interpretation [...] = PLTMR) NORMAL NORMAL AG HEPATITIS B [id number] 21:13:00* Test Item Value Reference Range Interpretation Comme nts AG HEPATITIS B SURFACE (test code = HBSAG) NONREACTIVE NONREACTIVE AB HEPATITIS C [id number] 21:13:00* Test Item Value Reference Range Interpretation Comme nts AB HEPATITIS C (test code = HCVAB) NONREACTIVE NONREACTIVE A SIGNAL TO CUTOFF (test code = CUTOFF) 0.04 <0.80 N AB [id number] 21:13:00* Test Item Value Reference Range Interpretation Comme nts AB TREPONEMA (test code = TREPAB) NONREACTIVE NONREACTIVE COMPREHENSIVE METABOLIC [id number] 20:12:00* Test Item Value Reference Range Interpretation [...] ALKP) 129 units/L 46-116 H CBC W/AUTO [id number] 19:46:00* Test Item Value Reference Range Interpretation [...] code = BA#) 0.1 K/mm3 BILE ACIDS [id number] 09:10:00* Test Item Value Reference Range Interpretation Comme nts BILE ACIDS TOTAL (test code = BILEACT) 2.5 umol/L 0.0-10.0 Performed At: [address] [id number] Sanjai MD Ph:[phone] RUPTURE OF [id number] 15:52:00* Test Item Value Reference Range Interpretation Comme nts RUPTURE OF MEMBRANES (test c ode = ROM) NON-RUPTURED COVID 19 Asymptomatic IH [id number] 11:02:00* Test Item Value Reference Range Interpretation [...] testsfor detection and/or diagnosis of COVID-19 under Dwlvfiw055(b)(1) of the Act, 21 U.S.C. 360bbb-3(b)(1), unless theauthorization is terminated or revoked sooner. URINALYSIS [id number] 10:51:00* Test Item Value Reference Range Interpretation [...] NONE SEEN URINE SAMPLE: CLEAN CATCHCOMPREHENSIVE METABOLIC [id number] 12:46:00* Test Item Value Reference Range Interpretation [...] = ALKP) 138 units/L 46-116 H URINALYSIS [id number] 12:32:00* Test Item Value Reference Range Interpretation [...] NONE SEEN URINE SAMPLE: CLEAN CATCHCBC W/AUTO [id number] 12:28:00* Test Item Value Reference Range Interpretation [...] code = PLTMR) NORMAL NORMAL RUPTURE OF [id number] 17:27:00* Test Item Value Reference Range Interpretation Comme nts RUPTURE OF MEMBRANES (test c ode = ROM) NON-RUPTURED COVID 19 Asymptomatic IH [id number] 17:26:00* Test Item Value Reference Range Interpretation [...] testsfor detection and/or diagnosis of COVID-19 under Rdtdqep687(b)(1) of the Act, 21 U.S.C. 360bbb-3(b)(1), unless theauthorization is terminated or revoked sooner. URINALYSIS [id number] 14:34:00* Test Item Value Reference Range Interpretation [...] CATCHComment On arrival if delivery is not [facility] W/AUTO [id number] 09:02:00* Test Item Value Reference Range Interpretation [...] code = PLTMR) NORMAL NORMAL RUPTURE OF [id number] 03:32:00* Test Item Value Reference Range Interpretation Comme nts RUPTURE OF MEMBRANES (test c ode = ROM) RUPTURED AG HEPATITIS B [id number] 20:55:00* Test Item Value Reference Range Interpretation Comme nts AG HEPATITIS B SURFACE (test code = HBSAG) NON REACTIVE INDEX NonReactive IS CONSENT FORM SIGNED FOR HIV TESTING? NAB HEPATITIS [id number] 20:55:00* Test Item Value Reference Range Interpretation Comme nts AB HEPATITIS C (test code = HCVAB) NON REACTIVE INDEX NON REACT. IS CONSENT FORM SIGNED FOR HIV TESTING? NAB HIV 1 20:55:00* Test Item Value Reference Range Interpretation Comme nts AB HIV 1 2 (test code = VRS35LQ) NONREACTIVE INDEX NONREACTIVE IS CONSENT FORM SIGNED FOR HIV TESTING? NAG HEPATITIS B [id number] 20:55:00* Test Item Value Reference Range Interpretation Comme nts AG HEPATITIS B SURFACE (test code = HBSAG) NON REACTIVE INDEX NonReactive Previously reported result: NONREACTIVE INDEXEdited by: INFKASSIE on 05/06/21:2054HBSAG prev. reported as:NONREACTIVE . . IS CONSENT FORM SIGNED FOR HIV TESTING? NAB HEPATITIS C [id number] 20:55:00* Test Item Value Reference Range Interpretation Comme nts AB HEPATITIS C (test code = HCVAB) NON REACTIVE INDEX NON REACT. A Previously reported result: NONREACTIVE INDEXEdited by: HORACIO on 05/06/21:2055HCVAB prev. reported as:NONREACTIVE . . SIGNAL TO CUTOFF (test code = CUTOFF) <0.02 <0.80 N IS CONSENT FORM SIGNED FOR HIV TESTING? NAB [id number] 20:55:00* Test Item Value Reference Range Interpretation Comme nts AB TREPONEMA (test code = TREPAB) NONREACTIVE NONREACTIVE IS CONSENT FORM SIGNED FOR HIV TESTING? NAB HIV 1 20:55:00* Test Item Value Reference Range Interpretation Comme nts AB HIV 1 2 (test code = ECC85KL) NONREACTIVE INDEX NONREACTIVE A IS CONSENT FORM SIGNED FOR HIV TESTING? NAG HEPATITIS B [id number] 15:32:00* Test Item Value Reference Range Interpretation Comme nts AG HEPATITIS B SURFACE (test code = HBSAG) NONREACTIVE NONREACTIVE IS CONSENT FORM SIGNED FOR HIV TESTING? NAB HEPATITIS C [id number] 15:32:00* Test Item Value Reference Range Interpretation Comme nts AB HEPATITIS C (test code = HCVAB) NONREACTIVE NONREACTIVE SIGNAL TO CUTOFF (test code = CUTOFF) <0.02 <0.80 N IS CONSENT FORM SIGNED FOR HIV TESTING? NAB [id number] 15:32:00* Test Item Value Reference Range Interpretation Comme nts AB TREPONEMA (test code = TREPAB) NONREACTIVE NONREACTIVE IS CONSENT FORM SIGNED FOR HIV TESTING? NAB HIV 1 15:32:00* Test Item Value Reference Range Interpretation Comme nts AB HIV 1 2 (test code = DCC61MD) NONREACTIVE IS CONSENT FORM SIGNED FOR HIV TESTING? NCOMPREHENSIVE METABOLIC [id number] 14:12:00* Test Item Value Reference Range Interpretation [...] ALKP) 149 units/L 46-116 H CBC W/AUTO [id number] 13:39:00* Test Item Value Reference Range Interpretation [...] code = PLTMR) NORMAL NORMAL COMPREHENSIVE METABOLIC [id number] 18:42:00* Test Item Value Reference Range Interpretation [...] 125 units/L 46-116 H HEMOL. NOTIFIED CJURINALYSIS [id number] 17:37:00* Test Item Value Reference Range Interpretation [...] NONE SEEN URINE SAMPLE: CLEAN CATCHCBC W/AUTO [id number] 17:14:00* Test Item Value Reference Range Interpretation [...] PLTMR) NORMAL NORMAL - US PREG AFTER [id number] 11:21:00 [facility] : 1990 Sex: F Patient Name: SHARYN RUSSELL Unit No: [id number] EXAMS: CPT CODE: [id number] US PREG AFTER TRI [address]76 [facility] [address], [place] [address] OBSTETRICAL ULTRASOUND REPORT -- Pat. Name: SHARYN RUSSELL Pat. No: [id number] Study Date: 01/04/2021 10:00am , Age: 13 1990, 30 Pregnancies: 3, Para 1 LMP: 08/13/2020 GA by LMP: 20w4d GA by US: 20w0d GA Selected: 20w4d (LMP) DANNA: 05/20/2021 Referring MD: ABEL MCGOVERN Animal Sticker: Harriet Montiel RDMS, RVT CPT4: [id number] Admitting MD: ABEL MCGOVERN Hist/Ind: SCAN 1 ANATOMY MEASUREMENTS AGE GROWTH EVALUATION Measurement GA Range Srce %for GA Ratios ----- ---- ------- BPD 4.6 cm 19w6d (20w5i-37k3j) Hadl BPD 17% FL/BPD 0.72 HC 17.6 cm 20w0d (18w3d- 21w4d) Hadl HC 33% FL/AC 0.22 APD 4.8 cm APD HC/AC 1.16 (1.06 - 1.24) TAD 4.9 cm TAD CI 0.76 (0.70 - 0.86) AC 15.2 cm 20w1d (33t2b-52j8i) Hadl AC 40% FL 3.3 cm 20w0d (88a4g-64q0j) Hadl FL 36% HL 3.1 cm 20w2d (10g4o-95z5k) Monster HL 45% GA for sonogram 20w0d (45y7x-49c6j) Weight Estimate: based on (BPD,HC,AC,FL) Hadlock Weight: [...] movements seen Four chamber heart observed The [facility] NAME: SHARYN RUSSELL Radiology Department PHYS: Abel Plummer MD [address] : 1990 AGE: 30 SEX: F [place] [address] LOC: KoleRAD PHONE #: [phone] EXAM DATE: 01/04/2021 STATUS: REG CLI FAX #: [phone] RAD NO: Page 1 Signed Report (CONTINUED) Patient Name: SHARYN RUSSELL Unit No: [id number] EXAMS: CPT CODE: [id number] US PREG AFTER 1ST TRI 11272 (Continued) Left ventricular outflow tract (LVOT) seen Right ventricular outflow tract (RVOT) seen Regular cardiac rhythm observed Normal intracranial anatomy seen face and nasal bone seen Umbilical cord insertion in fetus seen stomach, Renal Fossa, Bladder and Spine seen Three vesselumbilical cord noted All four extremities observed abnormalities [...] Montiel RDMS, RVT Probe: Trnscrbd D/ (1121) t.CALIR.CER Orig Print D/T: S: 01/04/2021 (1121) [facility] NAME: SHARYN RUSSELL Radiology Department PHYS: Abel Plummer MD [address] : 1990 AGE: 30 SEX: F [place], [place] [address] LOC: KoleRAD PHONE #: [phone] EXAM DATE: 01/04/2021 STATUS: REG CLI FAX #: [phone] RAD NO: Page 2 Signed Report Patient Name: SHARYN RUSSELL Unit No: [id number] EXAMS: CPT CODE: [id number] US PREG AFTER 1ST TRI 48429 (Continued) [facility] [place] NAME: SHARYN RUSSELL Radiology Department PHYS: Abel Plummer MD [address] : 1990 AGE: 30 SEX: F [place], [place] [address] LOC: MARLENA PHONE #: [phone] EXAM DATE: 01/04/2021 STATUS: REG [place] #: [phone] RAD NO: Page 3 Signed [id number] 04:03:00* Test Item Value Reference Range Interpretation Comme nts APPEARANCE (test code = 4636176250) Hazy Clear A COLOR (test code = 7318039453) Yellow Yellow PH (test code = 2829427085) 4.8-8.0 SP GRAVITY (test code = 9127193661) 1.003-1.030 GLU U QUAL (test code = 2912676806) Normal Normal BLOOD (test code = 1002690521) Negative Negative KETONES (test code = 8456190218) Negative Negative PROTEIN (test code = 2887-8) Negative Negative UROBILIN (test code = 2560097286) Normal Normal BILIRUBIN (test code = 8769946336) Negative Negative NITRITE (test code = 5253890685) Negative Negative LEUK MARVIN (test code = 9129361496) 25/uL Negative A RBC/HPF (test code = 2030983008) See_Comment [[employer]ated [employer]] The system which generated this result transmitted reference range: 0 - 3 HPF. The reference range was not used to interpret this result as normal/abnormal. WBC/HPF (test code = 7867879428) See_Comment [[employer]] The system which generated this result transmitted reference range: 0 - 5 HPF. The reference range was not used to interpret this result as normal/abnormal. BACTERIA (test code = 0845398794) Few Negative A MUCOUS (test code = 1127085626) Slight Negative LPF A SQ EPITH (test code = 3969695368) HPF Lab Interpretation (test code = 21293-5) [facility]normal [facility] - INFLUENZA A & B DIRECT [id number] 03:17:00* Test Item Value Reference Range Interpretation Comme nts Influenza A (test code = 91538-7) Negative Negative Influenza B (test code = 49830-8) Negative Negative Lab Interpretation (test cod e = 82708-7) Normal [facility] GROUP [id number] 03:15:00* Test Item Value Reference Range Interpretation Comme nts Streptococcus pyogenes (grou p A) antigen (test code = 02900-3) Negative Negative Lab Interpretation (test cod e = 80120-3) Normal [facility]- MRI LW JNT W/O CONT [id number] 09:09:00 [facility] 1990 Sex: F Patient Name: SHARYN RUSSELL Unit No: [id number] EXAMS: CPT CODE: [id number] MRI JNT W/[place] [address] MRI OF THE RIGHT KNEE DIAGNOSIS: 1. [...] Technologist: Maikel Hodges,RT(R) Transcribed D/ (908) ShaniquaJ[facility] NAME: SHARYN RUSSELL [address] [place] [address] PHYS: BRITLISA Cunningham Onur Cantu : 1990 AGE: 29 SEX: F [place] [address] LOC: Y.MRI PHONE #: [phone] EXAM DATE: 09/13/2020 STATUS: REG CLI FAX #: [phone] RAD #: D/C DT PAGE 1 Signed Report Patient Name: SHARYN RUSSELL Unit No: [id number] EXAMS: CPT CODE: [id number] MRI LW JNT W/[place] [address] <Continued> Orig Print D/T: S: 09/13/2020 (911) [facility] NAME: SHARYN RUSSELL [address] [place] [address] PHYS: KIA CantuOnur Pina : 1990 AGE: 29 SEX: F [place] [address] LOC: Y.MRI PHONE #: [phone] EXAM DATE: 09/13/2020 STATUS: REG CLI FAX #: [phone] RAD #: D/C DT PAGE 2 Signed ReportHGB [id number] 04:41:00* Test Item Value Reference Range Interpretation Comme nts HEMOGLOBIN (test code = HGB) 10.2 g/dL 10.7-13.9 L HEMATOCRIT (test code = HCT) 30.6 % 32.1-42.1 L AB HIV 1 16:06:00* Test Item Value Reference Range Interpretation Comme nts AB HIV 1 2 (test code = WXS07IQ) Nonreactive NonReactive It is recognized that currently available assays for thedetection of antibodies to HIV-1 and/or HIV-2 may notdetect all infected individuals. A negative test result doesnot exclude the possibility of exposure to or infection withHIV. HIV antibodies may be undetectable in some stages ofthe infection and in some clinical conditions. IS CONSENT FORM SIGNED FOR HIV TESTING? YAG HEPATITIS B [id number] 16:06:00* Test Item Value Reference Range Interpretation Comme nts AG HEPATITIS B SURFACE (test code = HBSAG) NONREACTIVE NONREACTIVE IS CONSENT FORM SIGNED FOR HIV TESTING? CALLY HEPATITIS C [id number] 16:06:00* Test Item Value Reference Range Interpretation Comme nts AB HEPATITIS C (test code = HCVAB) NONREACTIVE NONREACTIVE SIGNAL TO CUTOFF (test code = CUTOFF) <0.02 <0.80 N IS CONSENT FORM SIGNED FOR HIV TESTING? MANJITB [id number] 16:06:00* Test Item Value Reference Range Interpretation Comme nts AB TREPONEMA (test code = TREPAB) NONREACTIVE NONREACTIVE IS CONSENT FORM SIGNED FOR HIV TESTING? CALLY HIV 1 16:06:00* Test Item Value Reference Range Interpretation Comme nts AB HIV 1 2 (test code = GKJ25EO) Nonreactive NonReactive It is recognized that currently available assays for thedetection of antibodies to HIV-1 and/or HIV-2 may notdetect all infected individuals. A negative test result doesnot exclude the possibility of exposure to or infection withHIV. HIV antibodies may be undetectable in some stages ofthe infection and in some clinical conditions. IS CONSENT FORM SIGNED FOR HIV TESTING? CASSY HEPATITIS B [id number] 20:59:00* Test Item Value Reference Range Interpretation Comme nts AG HEPATITIS B SURFACE (test code = HBSAG) NONREACTIVE NONREACTIVE IS CONSENT FORM SIGNED FOR HIV TESTING? CALLY HEPATITIS C [id number] 20:59:00* Test Item Value Reference Range Interpretation Comme nts AB HEPATITIS C (test code = HCVAB) NONREACTIVE NONREACTIVE SIGNAL TO CUTOFF (test code = CUTOFF) <0.02 <0.80 N IS CONSENT FORM SIGNED FOR HIV TESTING? MANJITB [id number] 20:59:00* Test Item Value Reference Range Interpretation Comme nts AB TREPONEMA (test code = TREPAB) NONREACTIVE NONREACTIVE IS CONSENT FORM SIGNED FOR HIV TESTING? MANJITB HIV 1 20:59:00* Test Item Value Reference Range Interpretation Comme nts AB HIV 1 2 (test code = OBD13KO) NONREACTIVE IS CONSENT FORM SIGNED FOR HIV TESTING? YAG HEPATITIS B [id number] 20:17:00* Test Item Value Reference Range Interpretation Comme nts AG HEPATITIS B SURFACE (test code = HBSAG) NONREACTIVE NONREACTIVE IS CONSENT FORM SIGNED FOR HIV TESTING? YAB HEPATITIS C [id number] 20:17:00* Test Item Value Reference Range Interpretation Comme nts AB HEPATITIS C (test code = HCVAB) NONREACTIVE SIGNAL TO CUTOFF (test code = CUTOFF) <0.80 IS CONSENT FORM SIGNED FOR HIV TESTING? YAB [id number] 20:17:00* Test Item Value Reference Range Interpretation Comme nts AB TREPONEMA (test code = TREPAB) NONREACTIVE NONREACTIVE IS CONSENT FORM SIGNED FOR HIV TESTING? YAB HIV 1 20:17:00* Test Item Value Reference Range Interpretation Comme nts AB HIV 1 2 (test code = HOZ06NV) NONREACTIVE IS CONSENT FORM SIGNED FOR HIV TESTING? YCBC W/AUTO [id number] 19:51:00* Test Item Value Reference Range Interpretation [...] code = PLTMR) NORMAL NORMAL AMNISURE (ROM) [id number] 23:28:00* Test Item Value Reference Range Interpretation Comme nts AMNISURE (ROM) TEST (test co de = AMNI) NON-RUPTURED NON-RUPTURE : *Specimen Comment: LDO CAmalondra QC OK? YES- US FLW [id number] 10:01:00Patient Name: SHARYN RUSSELL Unit No: [id number] EXAMS: CPT CODE: [id number] [place] [address] [facility]'[address] [address] OBSTETRICAL ULTRASOUND REPORT ----- Pat. Name: SHARYN RUSSELL Pat. No: [id number] Study Date: 10/29/2019 9:11am , Age: 13 1990, 28 LMP: 01/16/2019 GA by LMP: 40w6d GA by 1st: 40w6d GA by US: 36w3d GA Selected: 39w6d (From Known E) DANNA: 10/30/2019 Referring MD: MARIO FERRER Animal Sticker: Julia Sol RDMS CPT4: USPREGFU Admitting MD: MARIO FERRER Hist/Ind: SCAN 2 FU GROWTH MEASUREME NTS AGE GROWTH EVALUATION Measurement GA Range Srce %for GA Ratios ----- ---- ------- BPD 8.6 cm 35w1d (75r0k-09t8k) Hadl BPD <05 FL/BPD 0.85 (0.71 - 0.87) HC 32.5 cm 36w2d (18x5j-05l7i) Hadl HC <05 FL/AC 0.22 (0.20 - 0.24) APD 10.2 cm APD HC/AC 0.97 (0.89 - 1.08) TAD 11.1 cm TAD CI 0.77 (0.70 - 0.86) AC 33.5 cm 37w4d (46a0c-83c 1d) Hadl AC 10% FL 7.3 cm 37w2d (26s7j-98e0i) Hadl FL 12% HL 6.2 cm 36w0d (22m6u-99m5w) Monster HL <05 GA for sonogram 36w3d (19z5m-02n7y) Weight Estimate: based on (BPD,HC,AC,FL) Hadlock Weight: 3086 gm (5699-5722) Hadlo : 6lbs, 12oz Normal: 3264 gm (5561-3800) Brenn Wt% 36% for 39.9 wks Heart [...] normal growth motion and organs seen: [facility] NAME: SHARYN RUSSELL Radiology Department PHYS: Mario Saunders III, MD [address] : 1990 AGE: 29 SEX: [place] [address] LOC: KolePAULA PHONE #: [phone] EXAM DATE: 10/29/2019 STATUS: REG CLI FAX #: [phone] RAD NO: Page 1 Signed Report (CONTINUED) Patient Name: JOHN RUSSELLYLERaghav ADHIKARI Unit No: [id number] EXAMS: CPT CODE: [id number] [place] [address] (Continued) somatic activity observed body and limb [...] Orig Print D/T: S: 10/29/2019 (1001) The [facility] NAME: DREWSHARYN ADHIKARI Radiology Department PHYS: Mario Saunders III, MD [address] : 1990 AGE: 29 SEX: F [place] [address] LOC: KoleRAD PHONE #: [phone] EXAM DATE: 10/29/2019 STATUS: REG CLI FAX #: [phone] RAD NO: Page 2 Signed Report Patient Name: SHARYN RUSSELL Unit No: [id number] EXAMS: CPT CODE: [id number] [place] [address] (Continued) The [facility] NAME: DREWSHARYN Radiology Department PHYS: Mario Saunders III, MD [address] : 1990 AGE: 29 SEX: F [place] [address] LOC: KoleRAD PHONE #: [phone] EXAM DATE: 10/29/2019 STATUS: REG CLI FAX #: [phone] RAD NO: Page 3 Signed Report- US PREG AFTER [id number] 12:18:00Patient Name: SHARYN RUSSELL Unit No: [id number] EXAMS: CPT CODE: [id number] US PREG AFTER 1ST TRI [address] [facility] [address], [place] [address] OBSTETRICAL ULTRASOUND REPORT ----- Pat. Name: SHARYN RUSSELL Pat. No: [id number] Study Date: 06/09/2019 10:46am , Age: 13 1990, LMP: 01/16/2019 GA by LMP: 20w4d GA by US: 18w6d GA Selected: 20w4d (LMP) DANNA: 10/23/2019 Referring MD: Nabil Schmitt Animal Sticker: Julia Sol RDMS CPT4: [id number] Admitting MD: MARIO FERRER Hist/Ind: SCAN 1 ANATOMY SCAN/DATES - MEASUREMENTS AGE GROWTH EVALUATION Measurement GA Range Srce %for GA Ratios ----- ---- ------- BPD 4.2 cm 18w4d (14y7n-76h0d) Hadl BPD <05 FL/BPD 0.71 HC 16.2 cm 18w6d (17w2d- 20w3d) Hadl HC <05 FL/AC 0.22 APD 4.2 cm APD HC/AC 1.18 (1.06 - 1.24) TAD 4.5 cm TADCI 0.76 (0.70 - 0.86) AC 13.7 cm 18w6d (24s0f-55r1r) Hadl AC 9% FL 3.0 cm 18w6d (44p9o-69a8b) Hadl FL 13% HL 2.9 cm 19w3d (36y3p-02a2t) Monster HL 31% GA for sonogram 18w6d (75f5x-99f2l) Weight Estimate: based on (BPD,HC,AC,FL) Hadlock Weight: [...] seen Three vessel umbilical cord noted The [facility] NAME: SHARYN RUSSELL Radiology Department PHYS: Mario Saunders III, MD [address] : 1990 AGE: 28 SEX: F [place], [place] [address] LOC: KoleRAD PHONE #: [phone] EXAM DATE: 06/09/2019 STATUS: REG CLI FAX #: [phone] RAD NO: Page 1 Signed Report (CONTINUED) Patient Name: SHARYN RUSSELL Unit No: [id number] EXAMS: CPT CODE: [id number] US PREG AFTER 1ST TRI 48333 (Continued) abnormalities observed: None seen at this [...] t.SDR.CER Orig Print D/T: S: 06/09/2019(1218) The [facility] NAME: SHARYN RUSSELL Radiology Department PHYS: Mario Saunders III, MD [address] : 1990 AGE: 28 SEX: [place] [address] : [facility]ole[facility] PHONE #: [phone] EXAM DATE: 06/09/2019 STATUS: REG CLI FAX #: [phone] RAD NO: Page 2 Signed Report Patient Name: SHARYN RUSSELL Unit No: [id number] EXAMS: CPT CODE: [id number] US PREG AFTER 1ST TRI 11348 (Continued) The [facility] NAME: DREWSHARYN Christine Radiology Department PHYS: Mario Saunders III, MD [address] : 1990 AGE: 28 SEX: F [place] [address] LOC: Kole[facility] PHONE #: [phone] EXAM DATE: 06/09/2019 STATUS: REG CLI FAX #: [phone] RAD NO: Page 3 Signed Report Notes [...] distress. No ataxia noted. Shima Rodriguez RN [facility] 2025-05-28 11:15:27 Sharyn Osman is a 34 year old female arrived to ED via personal means with CC of severe Right lower abdominal pain with N/V since 929 today. Gayatri Bettencourt RN [facility] 2024-08-05 12:57:45 Pt given printed [...] in no apparent distress, Angela Cerrato RN [facility] 2024-08-05 10:37:26 Periumbilical pain that started last night. States she has to "pull my knees up and push in" to decrease pain. GT Bridgette Saleh RN [facility] 2023-06-21 14:02:04 Formatting of this n ote might be different from the original. Pt discharged home. Given all education and information regarding care/management; fever control; and follow up importance. Also informed of my chart results . Pt verbalized understanding. Alert and ambulatory to pov with family. Azucena Gonzalez RN [facility] 2023-06-21 13:28:27 Formatting of this n ote might be different from the original. Patient has URI symptoms that started today. Been around somebody with covid. Kodak Lemos RN [facility] 2023-06-21 13:20:00 Formatting of this n ote is different from the original. [facility] Emergency Department Note Patient Name: Sharyn Russell Date of : 1990 32 year old female Treatment Room: [place] [address] Primary Care Physician: PATIENT DOES NOT HAVE [...] User Comments 06/21/23 1321 Medical Screening Begins ERKHA COSTA DO -- 06/21/23 1321 First Provider [...] She can follow-up with results on the [employer] cassy. Recommend she is isjq-nel-edrxbcv cough and cold medications as needed for [...] signed by: Rekha Costa DO 06/21/23 1341 T [facility] 2023-05-10 15:26:20 Formatting of this [...] in no apparent distress, Ryanne Hwang RN [facility] 2023-05-10 15:24:26 Formatting of this n ote might be different from the original. Ambulatory steady gait to restroom T [facility] 2023-05-10 14:18:38 Formatting of this n ote might be different from the original. Patient CO of left eye pain/pressure starting today, patient left eye is red and states her vision is a little blurry. Patient also CO of electric shock feeling starting 2 days ago on the right side of her face and a headache. Marc Morales RN [facility] 2022-05-18 18:31:00 [facility]) OB Disch REPORT#:[id number] REPORT STATUS: Signed DATE:05/18/22 TIME: 1830 PATIENT: SHARYN RUSSELL UNIT #: [id number] ROOM/BED: [address] : [birth year] AGE: 31 SEX: F [...] No Refills Prescriptions: e-prescribe at 1833 RPT #:[id number] END OF REPORT [facility]22-[facility] 09:16:00 [facility]) OB Postpart Progr Note REPORT#:[id number] REPORT STATUS: Signed DATE:05/17/22 TIME: 915 PATIENT: SHARYN RUSSELL UNIT #: [id number] ROOM/BED: [address] : [birth year] AGE: 31 SEX: F [...] O2 Flow FiO2 Mean Ox Delivery Rate 07/26 2230 98.2 73 19 116/75 05/16 1610 [...] progress Plan: routine care at 0918 RPT #:[id number] END OF REPORT [facility] 2022-05-16 08:27:00 [facility] ([facility]) OB Postpart Progr Note REPORT#:[id number] REPORT STATUS: Signed DATE:05/16/22 TIME: 826 PATIENT: SHARYN RUSSELL UNIT #: [id number] ROOM/BED: [address] : [birth year] AGE: 31 SEX: F [...] (Auto) (14.5 - 29.7 %) 10.8 L Cowley % (Auto) (3.6 - 10.2 %) 9.1 Eos % (Auto) (0.0 - 3.0 %) 0.0 Baso % (Auto) (0.1 - 0.9 %) 0.3 Neut # (Auto) (K/mm3) 14.6 Lymph # (Auto) (K/mm3) 2.0 Cowley # (Auto) (K/mm3) 1.7 Eos # (Auto) (K/mm3) 0 Baso # (Auto) (K/mm3) 0.1 Diagnosis, Assessment Plan Diagnosis, Assessment Plan Assessment: nml progress Plan: routine care at 0828 RPT #:[id number] END OF REPORT [facility] 2022-05-15 11:05:00 [facility] ([facility]) OB Postpart Progr Note REPORT#:[id number] REPORT STATUS: Signed DATE:05/15/22 TIME: 1105 PATIENT: SHARYN RUSSELL UNIT #: [id number] ROOM/BED: [address] : [birth year] AGE: 31 SEX: F [...] (14.5 - 29.7 %) 10.8 L 16.7 Cowley % (Auto) (3.6 - 10.2 %) 9.1 12.0 H Eos % (Auto) (0.0 - 3.0 %) 0.0 0.2 Baso % (Auto) (0.1 - 0.9 %) 0.3 0.5 Neut # (Auto) (K/mm3) 14.6 9.4 Lymph # (Auto) (K/mm3) 2.0 2.3 Cowley # (Auto) (K/mm3) 1.7 1.7 Eos # (Auto) (K/mm3) 0 0.03 Baso # (Auto) (K/mm3) 0.1 0.1 Serology Treponema pallidum Ab (NONREACTIVE) NONREACTIVE Hep Bs Antigen (NONREACTIVE) NONREACTIVE Hepatitis C Antibody (NONREACTIVE) NONREACTIVE Hep C Ab Signal/Cutoff (<0.80) 0.04 Diagnosis, Assessment Plan Diagnosis, Assessment Plan Assessment: nml progress Plan: routine care at 1106 [facility] #:[id number] END OF REPORT [facility] 2022-05-14 22:45:00 [phone] [facility] [place] [address] PATIENT NAME: SHARYN RUSSELL ADMIT DATE: 05/12/22 ACCOUNT NO: [id number] ROOM NO: [facility] AGE: 31 SEX: F ADMITTING PHYSICIAN: Abel Mcgovern MD ATTENDING PHYSICIAN: Abel Mcgovern MD OPERATION DATE: 05/14/2022 PREOPERATIVE DIAGNOSES: 1. A 35 weeks and 2 days' gestation. 2. Two previous sections. 3. labor. POSTOPERATIVE DIAGNOSES: 1. A 35 weeks and 2 days' gestation. 2. Two previous sections. 3. labor. PROCEDURE PERFORMED: Repeat low transverse section. SURGEON: Abel Mcgovern MD. NOODLE PRESS OPERATOR: Presley Ortiz MD, an operations and intelligence assistant is needed since section is a [...] with scalpel. Clear amniotic fluid was noted. Melter Operator's right hand reached over baby's head and operations and intelligence assistant applied fundal pressure, baby was easily [...] running-locking fashion. Hemostasis was achieved with additional akxfql-lr-bynir suture. Abdomen was cleaned with some moist [...] By: Abel Mcgovern MD WT: OP:FLIZBETH/TERELL/ERVIN Conf#: [id number]/DID#: [id number] Authenticated by Abel Mcgovern MD On 05/15/2022 08:57:46 PM at 0857 PATIENT NAME: SHARYN RUSSELL [facility] 2022-05-14 22:38:00 [facility] ([facility]) OB Delivery Note REPORT#:[id number] REPORT STATUS: Signed DATE:05/14/22 TIME: 2237 PATIENT: SHARYN RUSSELL UNIT #: [id number] ROOM/BED: [address] : [birth year] AGE: 31 SEX: F [...] infant A: 05/14/22 Delivery time infant A: 2125 Birthweight (gm) A: 2200 Weight (lb) infant A: Weight (oz) infant A: Gender A: Male 1 minute infant A: 5 minutes A: 10 minutes A: Cord pH obtained A: Vacuum time A: Vacuum # pulls infant A: Vacuum # popoffs A: QBL at delivery: __ Provider comments on imported nursing data: [] Pre-delivery GBS status: GBS status: unknown [place] evaluation at delivery: UPHOLSTERY INSTRUCTOR Admission EGA: Weeks: 35 EGA at delivery [...] infant stable in nursery at 2241 RPT #:[id number] END OF REPORT [facility] 2022-05-14 11:56:00 [facility] ([facility]) OB Antepartum Prog Note REPORT#:[id number] REPORT STATUS: Signed DATE:05/14/22 TIME: 1156 PATIENT: SHARYN RUSSELL UNIT #: [id number] ROOM/BED: [facility] : 92 AGE: 31 SEX: F ATTEND: [...] helpful, consider delivery tomorrow at 1202 RPT #:[id number] END OF REPORT [facility] 2022-05-13 22:39:00 [facility] ([facility]) OB Antepartum Prog Note REPORT#:[id number] REPORT STATUS: Signed DATE:05/13/22 TIME: 2238 PATIENT: SHARYN RUSSELL UNIT #: [id number] ROOM/BED: [address] : 92 AGE: 31 SEX: F [...] her IVF for ketonuria at 2244 RPT #:[id number] END OF REPORT [facility] 2022-05-12 22:36:00 [facility] ([facility]) OB Admission / H P REPORT#:[id number] REPORT STATUS: Signed DATE:05/12/22 TIME: 2235 PATIENT: SHARYN RUSSELL UNIT #: [id number] ROOM/BED: [address] : 92 AGE: 31 SEX: F [...] disease, Periph arterial disease, Pressure ulcer, Prior DC, Schizophrenia, Sickle cell disease, Steroid use, Thyroid [...] surgery, Nephrectomy, PCI, Prostate surgery, Thyroidectomy, Tracheotomy, SCHOOL NURSE shunt. Alcohol Use Denies EtOH use Drug Use Denies recreational drugs Smoking status: Smoking status for patients 13 years old or older: Unknown,if ever smoked Allergies: Coded Allergies: amoxicillin (From AUGMENTIN) (Intermediate, RASH 04/14/22) clavulanic acid (From AUGMENTIN) (Intermediate, RASH 04/14/22) Objective General VS: Last Documented: Result Date Time B/P Mean 78.0 05/128 B/P 107/57 05/12 1938 Pulse 98 05/12 [...] pH (5 - 9) 6.0 Ur Specific [place] (1.001 - 1.035) 1.019 Urine Protein (NEG) [...] antiemetics, IVF, betamethasone admin at 2252 RPT #:[id number] END OF REPORT [facility] 2022-04-14 22:41:00 [facility] ([facility]) ZENAIDA Evaluation Note REPORT#:[id number] REPORT STATUS: Signed DATE:04/14/22 TIME: 2240 PATIENT: SHARYN RUSSELL UNIT #: [id number] ROOM/BED: : 92 AGE: 31 SEX: F [...] Constitutional: Denies: chills, fatigue, fever. Respiratory: Denies: JAEN (dyspnea on exertion), hemoptysis, non productive cough. [...] time is 3 hours at 2241 RPT #:[id number] END OF REPORT [facility] 2022-04-06 08:44:00 [facility] ([facility]) ZENAIDA Evaluation Note REPORT#:[id number] REPORT STATUS: Signed DATE:04/06/22 TIME: 843 PATIENT: SHARYN RUSSELL UNIT #: [id number] ROOM/BED: : 92 AGE: 31 SEX: F [...] 04/05 2245 DC 04/05 Acetaminophen PO 04/06 010 2331 (NORCO 5/325 TABLET) Promethazine HCl 25 [...] and pain is gone at 0855 RPT #:[id number] END OF REPORT [facility] 2022-03-02 23:39:00 [facility] ([facility]) [place] Evaluation Note REPORT#:[id number] REPORT STATUS: Signed DATE:03/02/22 TIME: 2338 PATIENT: SHARYN RUSSELL UNIT #: [id number] ROOM/BED: : 92 AGE: 31 SEX: F [...] contraction since 1 hour before arrival at [facility]. She denies VB, ROM, MERIDA, scotomata, [...] pH (5 - 9) 7.0 Ur Specific [place] (1.001 - 1.035) 1.006 Urine Protein (NEG) [...] Phenergan 25 mg po at 2349 RPT #:[id number] END OF REPORT [facility] 2021-05-08 15:39:00 [facility] ([facility]) OB Disch REPORT#:[id number] REPORT STATUS: Signed DATE:05/08/21 TIME: 1539 PATIENT: SHARYN RUSSELL UNIT #: [id number] ROOM/BED: 1997 : 92 AGE: 30 SEX: [...] WEIGHT: Weight (lb): Weight (oz): Weight (kg): 98.519506 Physical Exam Cardiac: normal rhythm Lungs: clear [...] % (Auto) (14.5 - 29.7 %) 18.7 Cowley % (Auto) (3.6 - 10.2 %) 4.8 Eos % (Auto) (0.0 - 3.0 %) 0.2 Baso % (Auto) (0.1 - 0.9 %) 0.2 Neut # (Auto) (K/mm3) 9.4 Lymph # (Auto) (K/mm3) 2.3 Cowley # (Auto) (K/mm3) 0.6 Eos # (Auto) [...] timeframe: In 1-2 weeks at 1541 RPT #:[id number] END OF REPORT [facility] 2021-05-07 13:34:00 [facility] ([facility]) OB Postpart Progr Note REPORT#:[id number] REPORT STATUS: Signed DATE:05/07/21 TIME: 1334 PATIENT: SHARYN RUSSELL UNIT #: [id number] ROOM/BED: [address] : 92 AGE: 30 SEX: F [...] % (Auto) (14.5 - 29.7 %) 18.7 Cowley % (Auto) (3.6 - 10.2 %) 4.8 Eos % (Auto) (0.0 - 3.0 %) 0.2 Baso % (Auto) (0.1 - 0.9 %) 0.2 Neut # (Auto) (K/mm3) 9.4 Lymph # (Auto) (K/mm3) 2.3 Cowley # (Auto) (K/mm3) 0.6 Eos # (Auto) [...] anemia from Plan: routine care at 1335 [facility] #:[id number] END OF REPORT [facility] 2021-05-06 16:07:00 [id number] [facility] [place] [address] PATIENT NAME: SHARYN RUSSELL ADMIT DATE: 05/06/21 ACCOUNT NO: [id number] ROOM NO: [facility] AGE: 30 SEX: F ADMITTING PHYSICIAN: Abel [...] low transverse section. SURGEON: Abel Mcgovern MD NOODLE PRESS OPERATOR: Dr. Presley Ortiz, an operations and intelligence assistant needed since section is a complicated [...] a scalpel. Clear amniotic fluid was noted. Melter Operator's right hand reached over baby's head and operations and intelligence assistant applied fundal pressure, baby was easily delivered. Nose and mouth were suctioned. Cord was double clamped and cut between two clamps. Baby was passed to nurse. Cord blood was obtained. Placenta manually extracted. Uterus cleaned inside PATIENT NAME: SAHRYN RUSSELL abdominal cavity. The uterine incision repaired with #1 chromic in running-locking fashion. Hemostasis was achieved with additional cnbzrd-um-kkafn suture. Abdomen was cleaned with moist lap, [...] By: Abel Mcgovern MD WT: OP:F.SHANEL/TERELL/ERVIN Conf#: [id number]/DID#: [id number] Authenticated and Edited by Abel Mcgovern MD On 05/07/21 9:26:37 AM at 0929 PATIENT NAME: SHARYN RUSSELL [facility] 2021-05-06 16:06:00 [facility] ([facility]) OB Delivery Note REPORT#:[id number] REPORT STATUS: Signed DATE:05/06/21 TIME: 1606 PATIENT: SHARYN RUSSELL UNIT #: [id number] ROOM/BED: [address] : 92 AGE: 30 SEX: F [...] 2940 Weight (lb) infant A: Weight (oz) infant A: Gender infant A: Female 1 minute A: 5 minutes A: 10 minutes A: Cord pH obtained infant A: Vacuum time infant A: Vacuum # pulls A: Vacuum # popoffs infant A: QBL at delivery: __ Provider comments on imported nursing data: [] Pre-delivery GBS status: GBS status: negative [place] evaluation at delivery: UPHOLSTERY INSTRUCTOR Admission EGA: Weeks: 37 Days: 6 EGA [...] condition: mother stable Infant's condition: stable in room Blood Loss/Details Blood loss at delivery: 600 mL at 1622 RPT #:[id number] END OF REPORT [facility] 2021-05-06 14:04:00 [facility] ([facility]) OB Admission / H P REPORT#:[id number] REPORT STATUS: Signed DATE:05/06/21 TIME: 1404 PATIENT: SHARYN RUSSELL UNIT #: [id number] ROOM/BED: [facility] : 92 AGE: 30 SEX: F ATTEND: [...] disease, Periph arterial disease, Pressure ulcer, Prior DC, Schizophrenia, Sickle cell disease, Steroid use, Thyroid [...] surgery, Nephrectomy, PCI, Prostate surgery, Thyroidectomy, Tracheotomy, SCHOOL NURSE shunt. Alcohol Use Denies EtOH use Drug [...] WEIGHT: Weight (lb): Weight (oz): Weight (kg): 98.662282 Physical Exam HEENT: normocephalic w/o injury Cardiac: [...] % (Auto) (14.5 - 29.7 %) 21.3 Cowley % (Auto) (3.6 - 10.2 %) 10.3 H Eos % (Auto) (0.0 - 3.0 %) 0.6 Baso % (Auto) (0.1 - 0.9 %) 0.4 Neut # (Auto) (K/mm3) 6.3 Lymph # (Auto) (K/mm3) 2.0 Cowley # (Auto) (K/mm3) 1.0 Eos # (Auto) (K/mm3) 0.06 Baso # (Auto) (K/mm3) 0.0 Diagnosis, Assessment Plan Diagnosis, Assessment Plan Assessment/Impression: PROM 37-38 weeks, 6 days, previous C/S, in labor Plan: at 1410 RPT #:[id number] END OF REPORT [facility] 2021-05-06 14:04:00 [facility] ([facility]) OB Admission / H P REPORT#:[id number] REPORT STATUS: Signed DATE:05/06/21 TIME: 1404 PATIENT: SHARYN RUSSELL UNIT #: [id number] ROOM/BED: [address] : 92 AGE: 30 SEX: F [...] disease, Periph arterial disease, Pressure ulcer, Prior DC, Schizophrenia, Sickle cell disease, Steroid use, Thyroid [...] surgery, Nephrectomy, PCI, Prostate surgery, Thyroidectomy, Tracheotomy, SCHOOL NURSE shunt. Alcohol Use Denies EtOH use Drug [...] WEIGHT: Weight (lb): Weight (oz): Weight (kg): 98.335852 Physical Exam HEENT: normocephalic w/o injury Cardiac: [...] % (Auto) (14.5 - 29.7 %) 21.3 Cowley % (Auto) (3.6 - 10.2 %) 10.3 H Eos % (Auto) (0.0 - 3.0 %) 0.6 Baso % (Auto) (0.1 - 0.9 %) 0.4 Neut # (Auto) (K/mm3) 6.3 Lymph # (Auto) (K/mm3) 2.0 Cowley # (Auto) (K/mm3) 1.0 Eos # (Auto) (K/mm3) 0.06 Baso # (Auto) (K/mm3) 0.0 Diagnosis, Assessment Plan Diagnosis, Assessment Plan Assessment/Impression: PROM 37-38 weeks, 6 days, previous C/S, in labor Plan: at 1410 Addendum 1: 05/08/21 1544 by Abel Mcgovern MD actually pt is 38 weeks at 1544 RPT #:[id number] END OF REPORT [facility] 2021-04-20 20:40:00 [facility] ([facility]) [place] Evaluation Note REPORT#:[id number] REPORT STATUS: Signed DATE:04/20/21 TIME: 2039 PATIENT: SHARYN RUSSELL UNIT #: [id number] ROOM/BED: : 92 AGE: 30 SEX: F [...] (Auto) (14.5 - 29.7 %) 5.1 L Cowley % (Auto) (3.6 - 10.2 %) 5.6 Eos % (Auto) (0.0 - 3.0 %) 0.3 Baso % (Auto) (0.1 - 0.9 %) 0.4 Neut # (Auto) (K/mm3) 9.6 Lymph # (Auto) (K/mm3) 0.6 Cowley # (Auto) (K/mm3) 0.6 Eos # (Auto) (K/mm3) 0.03 Baso # (Auto) (K/mm3) 0.0 Urines Urine Color (YELLOW) YELLOW Urine Appearance (CLEAR) Slightly-Cloudy Urine pH (5 - 9) 5.0 Ur Specific [place] (1.001 - 1.035) 1.026 Urine Protein (NEG) [...] diarrhea Plan: discharge home at 2046 RPT #:[id number] END OF REPORT [facility] 2021-04-01 17:34:00 [facility] ([facility]) [place] Evaluation Note REPORT#:[id number] REPORT STATUS: Signed DATE:04/01/21 TIME: 1734 PATIENT: SHARYN RUSSELL UNIT #: [id number] ROOM/BED: : 92 AGE: 30 SEX: F [...] WEIGHT: Weight (lb): Weight (oz): Weight (kg): 98.751634 Physical Exam HEENT: normocephalic w/o injury Cardiac: [...] exam Plan: discharge home at 1740 RPT #:[id number] END OF REPORT [facility] 2019-11-09 08:57:00 [id number] [facility] [address], [place] [address] PATIENT NAME: SHARYN RUSSELL ADMIT DATE: 11/05/19 ACCOUNT NO: [id number] ROOM NO: .1999 AGE: 29 SEX: F [...] NAME: SHARYN RUSSELL WT: DS:F.SHANEL/JOSE R/ERVIN Conf#: [id number]/DID#: [id number] Authenticated by Mario Ferrer MD On 11/11/2019 01:00:32 PM at 1300 PATIENT NAME: SHARYN RUSSELL [facility] 2019-11-09 08:49:00 [facility] ([facility]) OB Postpart Progr Note REPORT#:[id number] REPORT STATUS: Signed DATE:11/09/19 TIME: 0849 PATIENT: SHARYN RUSSELL UNIT #: [id number] ROOM/BED: : 92 AGE: 29 SEX: F [...] discussed with: patient, spouse/partner at 0849 RPT #:[id number] END OF REPORT [facility] 2019-11-08 08:45:00 [facility] ([facility]) OB Postpart Progr Note REPORT#:[id number] REPORT STATUS: Signed DATE:11/08/19 TIME: 0845 PATIENT: SHARYN RUSSELL UNIT #: [id number] ROOM/BED: : 92 AGE: 29 SEX: F [...] been assigned to me. at 0848 RPT #:[id number] END OF REPORT [facility] 2019-11-06 21:32:00 [id number] [address] PATIENT NAME: SHARYN RUSSELL ADMIT DATE: 11/05/19 ACCOUNT NO: [id number] ROOM NO: .1999 AGE: 29 SEX: F ADMITTING PHYSICIAN: Mario Ferrer III, MD ATTENDING PHYSICIAN: Mario Ferrer III, MD OPERATION DATE: 11/06/2019 PREOPERATIVE DIAGNOSES: 1. Postdates intrauterine . 2. Failure to progress. POSTOPERATIVE DIAGNOSIS: Cephalopelvic disproportion, occipital posterior, asynclitic. PROCEDURE: Primary low transverse section. SURGEON: Mario Ferrer III, MD NOODLE PRESS OPERATOR: Jama Amaya SA ANESTHESIA: Epidural. PROCEDURE IN [...] Monocryl starting in each angle with 2 jqhxrx-rk-hkcfis for excellent hemostasis. Uterus firmed up nicely [...] WT: OP:FLIZBETH/JOSE R/ERVIN PATIENT NAME: SHARYN RUSSELL Conf#: [id number]/DID#: [id number] Authenticated by Mario Ferrer MD On 11/09/2019 08:51:31 AM at 0851 PATIENT NAME: SHARYN RUSSELL [facility] 2019-11-06 19:46:00 [facility] ([facility]) OB Intrapart Prog Note REPORT#:[id number] REPORT STATUS: Signed DATE:11/06/19 TIME: 1945 PATIENT: SHARYN RUSSELL UNIT #: [id number] ROOM/BED: [address] : 92 AGE: 29 SEX: F [...] discussed with: patient, spouse/partner at 1948 RPT #:[id number] END OF REPORT [facility] 2019-11-06 18:53:00 [facility] ([facility]) OB Intrapart Prog Note REPORT#:[id number] REPORT STATUS: Signed DATE:11/06/19 TIME: 1853 PATIENT: SHARYN RUSSELL UNIT #: [id number] ROOM/BED: [address] : 92 AGE: 29 SEX: F [...] will proceed to C/S at 1855 RPT #:[id number] END OF REPORT [facility] 2019-11-06 15:26:00 [facility] ([facility]) OB Intrapart Prog Note REPORT#:[id number] REPORT STATUS: Signed DATE:11/06/19 TIME: 152 PATIENT: SHARYN RUSSELL UNIT #: [id number] ROOM/BED: 008-A : 92 AGE: 29 SEX: [...] with: patient, spouse/partner, parent at 1529 RPT #:[id number] END OF REPORT [facility] 2019-11-06 11:58:00 [facility] ([facility]) OB Intrapart Prog Note REPORT#:[id number] REPORT STATUS: Signed DATE:11/06/19 TIME: 1158 PATIENT: SHARYN RUSSELL UNIT #: [id number] ROOM/BED: [address] : 92 AGE: 29 SEX: F [...] managmnt, continue labor induction at 1159 RPT #:[id number] END OF REPORT [facility] 2019-11-06 09:58:00 [id number] [place] [address] PATIENT NAME: SHARYN RUSSELL ADMIT DATE: 11/05/19 ACCOUNT NO: [id number] ROOM NO: [facility] AGE: 29 SEX: F ADMITTING PHYSICIAN: [...] and decreased movement. Last ultrasound done at [facility] showed a 36th percentile with a fluid index of 16. The [...] HP:ESTEFANY/JOSE R/ERVIN PATIENT NAME: DREWSHARYN ADHIKARI Conf#: [id number]/DID#: [id number] Authenticated by Mario Ferrer MD On 11/06/2019 06:58:09 PM at 1858 PATIENT NAME: SHARYN RUSSELL [facility] 2019-11-06 07:52:00 [facility] ([facility]) OB Intrapart Prog Note REPORT#:[id number] REPORT STATUS: Signed DATE:11/06/19 TIME: 751 PATIENT: SHARYN RUSSELL UNIT #: [id number] ROOM/BED: [address] : 92 AGE: 29 SEX: F [...] Plan discussed with: patient at 0758 RPT #:[id number] END OF REPORT [facility] 2019-11-06 05:36:00 [facility] ([facility]) Clinical Note REPORT#:[id number] REPORT STATUS: Signed DATE:11/06/19 TIME: 05 PATIENT: SHARYN RUSSELL UNIT #: [id number] ROOM/BED: [address] : 92 AGE: 29 SEX: F [...] posterior placenta, movements observed at 0538 RPT #:[id number] END OF REPORT [facility]
[2025-08-01] MEDS ORDERED: KETOROLAC 30 MG/ML INJ ONE (16:26)
[2025-08-01] MEDS ORDERED: NA CHLORIDE 0.9% 1,000 ML ONE (16:26)
[2025-08-01] MEDS ORDERED: ONDANSETRON 4 MG/2 ML VIAL ONE (16:26)
[2025-08-01 16:36] LABS: Absolute Lymphocytes (CBC) 2.7 K/uL (0.7-4.9); Hematocrit 38.8 % (36.0-45.0); Hemoglobin 13.3 g/dL (12.0-15.0); MCH 31.6 pg (27.0-35.0); MCHC 34.3 g/dL (32.0-36.0); MCV 92.0 fL (80-100); MPV 8.0 fL (7.6-11.3); Nucleated RBC Absolute Count 0.0 (0-0); Nucleated Red Blood Cells % 0.0 % (0-0); RBC Red Blood Cell Count 4.22 M/uL (3.86-4.86); White Blood Count 6.50 thou/uL (4.3-10.9)
[2025-08-01 16:37] LABS: Sqamous Epithelial <5 /HPF (None Seen); Urine Crystals Unidentified Few /HPF (None Seen); Urine Culture Reflex Order NOT NEEDED; Urine Microscopic Reflex YN ORDER UMIC
[2025-08-01 16:52] LABS: ALT/SGPT 25 U/L (13-56); Albumin 3.8 g/dL (3.4-5.0); Albumin/Globulin Ratio 1.1 (1.1-1.8); Alkaline Phosphatase 56 U/L (45-117); Anion Gap 7.6 mEq/L (5.0-15.0); BUN Blood Urea Nitrogen 11 mg/dL (7-18); Globulin 3.4 g/dL (2.3-3.5); Glucose Level 88 mg/dL (74-106); Lipase 42 U/L (13-75); Potassium 3.6 mEq/L (3.5-5.1)
--- NOTE | 2025-08-01 17:16 | RAD REPORT ---
EXAMINATION: US Transvaginal Study Probe, Abdomen Pelvis Scan US CLINICAL INDICATION: Female 34 years old.[facility] MA[facility] 06/2025 ABD PAIN Bed: TECHNIQUE: Real-time ultrasonography of the pelvis was performed transvaginally. Color and spectral D oppler evaluation of the ovaries was performed. COMPARISON: 07/30/2025. FINDINGS: UTERUS AND CERVIX: The uterus measures 7.2 cm in length. Calcific focus with mild shadowing along the posterior myometrium measuring 4 mm. The uterus is otherwise normal. No masses seen The endometrium is normal, 0.3 cm in thickness. RIGHT OVARY: Normal The right ovary measures 2.3 x 1.5 cm. Normal color and spectral Doppler evaluation of the right ovary.. LEFT OVARY: Normal The left ovary measures 2.8 x 2.2 x 1.4 cm. Normal color and spectral Doppler evaluation of the left ovary.. FREE FLUID: No free fluid. IMPRESSION: No suspicious pelvic abnormalities. Incidental findings as above.
[2025-08-01 17:29] LABS: AST/SGOT < 10 U/L (15-37)
[2025-08-01] MEDS ORDERED: MORPHINE 4 MG/ML SYR ONE (17:36)
--- NOTE | 2025-08-01 17:48 | ER ---
Nurse's Notes [facility] Name: Pamela Osman Age: 34 yrs Sex: Female : 1990 Arrival Date: 08/01/2025 Time: 16:08 Bed 5 Private MD: Diagnosis: Lower abdominal pain, unspecified Presentation: 08/01 16:13 Chief complaint: Patient states: SHE HAS CONTINUED TO HAVE LT LOWER STOMACH PAIN SINCE dd2 07/30/2025. REPORTS SHE WAS HERE ON 07/30, GIVEN RX BUT NOT HELPING. REPORTS N/V AND PAIN RADIATING TO UMBILICAL AND LT UPPER STOMACH. Coronavirus screen: At this time, the client does not indicate any symptoms associated with coronavirus-19. Ebola Screen: No symptoms or risks identified at this time. Initial Sepsis Screen: Does the patient meet any 2 criteria? No. Patient's initial sepsis screen is negative. Does the patient have a suspected source of infection? No. Patient's initial sepsis screen is negative. Risk Assessment: Do you want to hurt yourself or someone else? Patient reports no desire to harm self or others. Onset of symptoms was July 30, 2025. 16:13 Method Of Arrival: Ambulatory dd2 16:13 Acuity: LAURIE 3 dd2 Triage Assessment: 16:16 General: Appears in no apparent distress. uncomfortable, Behavior is calm, cooperative, dd2 appropriate for age. Pain: Complains of pain in right lower quadrant and left lower quadrant Pain radiates to umbilical area and left upper quadrant. GI: Reports lower abdominal pain, upper abdominal pain, nausea, vomiting. 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 - Infectious Disease History:: Denies. - Social history:: Smoking status: Patient denies any tobacco usage or history of. Screenin:31 [facility] ED Fall Risk Assessment (Adult) History of falling in the last 3 months, af3 including since admission No falls in past 3 months (0 pts) Confusion or Disorientation No (0 pts) Intoxicated or Sedated No (0 pts) Impaired Gait No (0 pts) Mobility Assist Device Used No (0 pt) Altered Elimination No (0 pt) Score/Fall Risk Level 0 - 2 = Low Risk Oriented to surroundings, Maintained a safe environment, Educated pt \T\ family on fall prevention, incl call for assistance when getting out of bed. Abuse screen: Denies threats or abuse. Denies injuries from another. Nutritional screening: No deficits noted. Tuberculosis screening: No symptoms or risk factors identified. Assessment: 16:31 General: Appears in no apparent distress. uncomfortable, well groomed, well developed, af3 Behavior is calm, cooperative, appropriate for age. Pain: Complains of pain in pelvis Pain began 1pm. Neuro: Level of Consciousness is awake, alert, obeys commands, Oriented to person, place, time, situation, Appropriate for age. Cardiovascular: Patient's skin is warm and dry. Respiratory: Airway is patent Respiratory effort is even, unlabored, Respiratory pattern is regular, symmetrical. GI: Reports nausea. Vital Signs: 16:13 BP 136 / 89; Pulse 89; Resp 16; Temp 98.5; Pulse Ox 100% ; Pain 10/10; dd2 17:19 BP 127 / 86; Pulse 64; Resp 18; Pulse Ox 100% on R/A; af3 18:11 BP 108 / 83; Pulse 65; Resp 18; Pulse Ox 100% on R/A; af3 16:13 Pain Scale: Adult dd2 ED Course: 16:10 Patient arrived in ED. ts1 16:10 Brandi Vale FNP-C [facility]. kb 16:10 Abraham Barbosa MD is Attending Physician. kb 16:15 Triage completed. dd2 16:16 Arm band placed on right wrist. dd2 16:21 Mady Wihte, WHIT is Primary Nurse. af3 16:31 Patient has correct armband on for positive identification. Bed in low position. Call af3 light in reach. Provided Education on: call light use . 16:31 Test, Urine Sent. af3 16:31 UA Rfx Ambrosio Cult if indicated Sent. af3 16:31 No provider procedures requiring assistance completed. Initial lab(s) drawn, by nj, af3 sent to lab. Inserted saline lock: 20 gauge in right antecubital area, using aseptic technique. Blood collected. Flushed with 10 mL NS. 16:59 US Transvaginal Study (Probe) In Process Unspecified. EDMS 16:59 Abdomen Pelvis Scan\E\US In Process Unspecified. EDMS 18:26 IV discontinued, intact, bleeding controlled, No redness/swelling at site. Pressure af3 dressing applied. Administered Medications: 17:08 Drug: TORadol - Ketorolac IVP 15 mg IVP once Route: IVP; Site: right antecubital; af3 18:11 Follow up: Response: No adverse reaction af3 17:08 Drug: Ondansetron IVP 4 mg IVP once; over 2 minutes Route: IVP; Site: right antecubital;af3 18:11 Follow up: Response: No adverse reaction af3 17:08 Drug: NS 0.9% IV 1000 ml IV at 1 bolus Per protocol; to be given as a bolus over 60 af3 minutes Route: IV; Rate: 1 bolus; Site: right antecubital; 18:11 Follow up: Response: No adverse reaction; IV Status: Completed infusion; IV Intake: af3 1000ml 17:39 Drug: morphine IVP or IV 4 mg IVP once over 4 mins Route: IVP; Infused Over: 4 mins; af3 Site: right antecubital; 18:11 Follow up: Response: No adverse reaction; RASS: Alert and Calm (0) af3 Medication: 16:31 VIS not applicable for this client. af3 Intake: 18:11 IV: 1000ml; Total: 1000ml. af3 Outcome: 17:48 Discharge ordered by MD. ugarte 18:26 Discharged to home ambulatory, with family, af3 18:26 Condition: stable 18:26 Discharge instructions given to patient, Instructed on discharge instructions, follow up and referral plans. Demonstrated understanding of instructions, follow-up care, 18:27 Patient left the ED. af3 Signatures: Dispatcher [employer] EDMS Brandi Vale, BEAUTICIAN APPRENTICE-C BEAUTICIAN APPRENTICE-Wendy Coronado PAS PAS ts1 Mady White RN RN af3 REJI RAYMOND RN RN dd2
--- NOTE | 2025-08-01 17:48 | EDPHYS ---
Physician Documentation [facility] Name: Pamela Osman Age: 34 yrs Sex: Female : 1990 Arrival Date: 08/01/2025 Time: 16:08 Bed 5 Private MD: ED Physician Abraham Barbosa HPI: 08/01 16:36 This 34 yrs old Female presents to ER via Ambulatory with complaints of Pelvic Pain. kb 16:36 Pt is a 34 year old female who presents for left ovarian pain that has been going on kb for a few days. States she was here 3 days ago, had a normal CT and US, but pain persists. Denies fever, n/v/d. States she had similar pain on the right side in the past and it was due to an ovarian cyst, but they only found it because Dr Parsons did an exploratory surgery. States her tests were all normal at that time as well . 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 - Infectious Disease History:: Denies. - Social history:: Smoking status: Patient denies any tobacco usage or history of. ROS: 16:35 Constitutional: As per HPI kb Exam: 16:35 Constitutional: This is a well developed, well nourished patient who is awake, alert, kb and in no acute distress. Head/Face: Normocephalic, atraumatic. ENT: Moist Mucous membranes Cardiovascular: Regular rate Respiratory: Respirations even and unlabored. No increased work of breathing. Talking in full sentences Skin: Warm, dry with normal turgor. Normal color. MS/ Extremity: Pulses equal, no cyanosis. Neurovascular intact. Full, normal range of motion. Neuro: Awake and alert, GCS 15, oriented to person, place, time, and situation. 16:35 Abdomen/GI: Inspection: abdomen appears normal, Bowel sounds: normal, Palpation: soft, in all quadrants, moderate abdominal tenderness, in the left lower quadrant, Vital Signs: 16:13 BP 136 / 89; Pulse 89; Resp 16; Temp 98.5; Pulse Ox 100% ; Pain 10/10; dd2 17:19 BP 127 / 86; Pulse 64; Resp 18; Pulse Ox 100% on R/A; af3 18:11 BP 108 / 83; Pulse 65; Resp 18; Pulse Ox 100% on R/A; af3 16:13 Pain Scale: Adult dd2 MDM: 16:10 Medical Screening Exam initiated kb 17:46 Differential diagnosis: Endometriosis, non-specific abd pain, Ovarian Torsion, urinary kb tract infection, ovarian cyst. Data reviewed: vital signs, nurses notes. Test considered but Not performed: CT: ct abd considered but was completed 2 days ago with no acute findings. . Counseling: I had a detailed discussion with the patient and/or guardian regarding the historical points, exam findings, and any diagnostic results supporting the discharge/admit diagnosis, lab results, radiology results, the need for outpatient follow up, a general surgeon, an OB/Gyne specialist, to return to the emergency department if symptoms worsen or persist or if there are any questions or concerns that arise at home. ED course: Pt has follow up appt with Zoila on 08/05. 08/01 16:16 Order name: CBC with Diff; Complete Time: 16:37 kb 08/01 16:16 Order name: CMP; Complete Time: 17:34 kb 08/01 16:16 Order name: Lipase; Complete Time: 17:34 kb 08/01 16:16 Order name: Test, Urine; Complete Time: 16:38 kb 08/01 16:16 Order name: UA Rfx Ambrosio Cult if indicated; Complete Time: 16:38 kb 08/01 16:16 Order name: US Transvaginal Study (Probe); Complete Time: 17:19 kb 08/01 16:59 Order name: Abdomen Pelvis Scan\E\US; Complete Time: 17:19 EDMS 08/01 16:16 Order name: IV Saline Lock; Complete Time: 16:31 kb 08/01 16:16 Order name: Labs collected and sent; Complete Time: 16:31 kb Administered Medications: 17:08 Drug: TORadol - Ketorolac IVP 15 mg IVP once Route: IVP; Site: right antecubital; af3 18:11 Follow up: Response: No adverse reaction af3 17:08 Drug: Ondansetron IVP 4 mg IVP once; over 2 minutes Route: IVP; Site: right antecubital;af3 18:11 Follow up: Response: No adverse reaction af3 17:08 Drug: NS 0.9% IV 1000 ml IV at 1 bolus Per protocol; to be given as a bolus over 60 af3 minutes Route: IV; Rate: 1 bolus; Site: right antecubital; 18:11 Follow up: Response: No adverse reaction; IV Status: Completed infusion; IV Intake: af3 1000ml 17:39 Drug: morphine IVP or IV 4 mg IVP once over 4 mins Route: IVP; Infused Over: 4 mins; af3 Site: right antecubital; 18:11 Follow up: Response: No adverse reaction; RASS: Alert and Calm (0) af3 Disposition: 18:53 Co-signature as Attending Physician, Abraham Barbosa MD I reviewed the patient's care rn provided by the Advanced Practice Provider and agree with the diagnosis and treatment plan. Disposition Summary: 08/01/25 17:48 Discharge Ordered Notes: Location: Home kb Condition: Stable kb Diagnosis - Lower abdominal pain, unspecified kb Followup: kb - With: Emergency Department - When: As needed - Reason: Worsening of condition Followup: kb - With: Private Physician - When: 2 - 3 days - Reason: Recheck today's complaints, Continuance of care, Re-evaluation by your physician Discharge Instructions: - Discharge Summary Sheet kb - Pelvic Pain, Female, [id number] kb - Abdominal Pain, Adult, [id number] kb Forms: - Medication Reconciliation Form kb - Antibiotic Education kb - Prescription Opioid Use kb - Patient Portal Instructions kb - Leadership Thank You Letter kb Signatures: Dispatcher [employer] EDMS Brandi Vale, ART OBJECTS SUPERVISOR-C ART OBJECTS SUPERVISOR-Ckb Abraham Barbosa MD MD rn Fry, Ashley, RN RN af3 REJI RAYMOND RN RN dd2 Corrections: (The following items were deleted from the chart) 16:17 16:17 CBC+H.LAB.BRZ ordered. EDMS EDMS 16:17 16:17 COMPREHENSIVE METABOLIC PANEL+C.LAB.BRZ ordered. EDMS EDMS 16:17 16:17 LIPASE+C.LAB.BRZ ordered. EDMS EDMS 16:17 16:17 Test, Urine+UC.LAB.BRZ ordered. EDMS EDMS 16: UA Rfx Ambrosio Cult if indicated+U.LAB.BRZ ordered. EDMS EDMS 16:17 Transvaginal Study (Probe)+US.RAD.BRZ ordered. EDMS EDMS
[2025-08-01 18:46] VITALS: TEMP 98.5; O2SAT 100
[2025-08-01 18:49] VITALS: BP 108/83
== END 2025-08-01 18:27 | disposition home or self-care (01) ==
LOC: ER 16:08
DX: R10.32 Left lower quadrant pain (principal)
CPT/HCPCS: 96361; 85025; 81001; 36415; 81025; 83690; 80053; 93975; 76830; 96375; 96374; 99284; J1885; J2405; J7030